=== PATIENT | female | born 1955 | race Caucasian/White ===

== ENCOUNTER 2018-05-07 16:22 | Outpatient (RCR) | payer SELFPAY | END 2018-05-07 19:00 | disposition home or self-care (01) | LOC: PT 16:22 | PROVIDERS: Family Provider Internal Medicine; PCP Internal Medicine; Visit Provider Internal Medicine | DX: G35 Multiple sclerosis (principal); M54.9 Dorsalgia, unspecified ==

== ENCOUNTER 2021-02-21 16:00 | Outpatient (RCR) | payer MEDICARE, OTHER, SELFPAY | END 2021-02-27 23:59 | LOC: DC 16:00 | PROVIDERS: PCP Internal Medicine; Visit Provider Internal Medicine | DX: E11.9 Type 2 diabetes mellitus without complications (principal) | CPT/HCPCS: 97802; G0108 ==

== ENCOUNTER 2021-03-02 18:36 | Emergency (ER) | payer MEDICARE, OTHER, SELFPAY ==
[2021-03-02 18:37] VITALS: BP 204/99; PULSE 80; RESP 16; TEMP 36.6; O2SAT 95; BMI 29.2
--- NOTE | 2021-03-02 18:53 | CT_ITS ---
HISTORY: HTN, headache, vertigo TECHNIQUE: Multiple axial images were obtained of the brain without intravenous contrast. A radiation dose optimization technique was used for this scan. IV Contrast dosage and agent: None. COMPARISON: None FINDINGS: # of images incl. paperwork: 256 PARANASAL SINUSES AND MASTOID AIR CELLS: Clear. INTRACRANIAL HEMORRHAGE: None. BRAIN PARENCHYMA: No CT evidence of stroke. No intracranial masses. There is preservation of the bran/white matter interface. Posterior fossa structures are unremarkable. There is hypoattenuation of the periventricular white matter. Chronic involutional changes are noted. CSF SPACES: Appropriate for age. There is no hydrocephalus. MASS EFFECT: None. CALVARIUM: No acute fracture. CT/Brain/Head without Contrast IMPRESSION: Chronic involutional and white matter changes. No acute intracranial process. Individualized dose optimization techniques were used for this CT. at 2006 Reported and signed by: Jose Luis Harris MD Electronically Signed: Jose Luis Harris MD at 20:05 EDT Tel , Service support ,
--- NOTE | 2021-03-02 18:56 | EX.ED.DYSGE1 ---
HPI History of Present Illness Chief Complaint: Dizziness Informant: patient Onset/Context/Timing Onset: Yesterday Context: Sudden Onset (As she laid down to go to bed) Timing: Intermittent Quality: Sensation of movement Location: Head Current Severity: Mild Maximum Severity: Severe Worsened by: Turning head, lying down Relieved by: Sitting and remaining still Associated Symptoms Associated Symptoms: Nausea, intermittent headache. Narrative Narrative: No vomiting, earache, tinnitus, diplopia/vision disturbance or change, loss of consciousness, otorrhea, recent illness, peripheral neurologic symptom. Patient states she has had vertigo in the past, once it was so severe she had a follow-up with otolaryngology and they did an Shazia maneuver, between that and the meclizine she got better. Ever since, when she lies down she occasionally will have a couple seconds of vertigo but nothing major. This started last night at midnight, but became more persistent throughout the day especially when she moves around. She does not have any medication to try. She checked her blood sugar was in the 200s, she states that is not uncommon for her now that she is actually on medications for diabetes. No history of stroke or TIA, does not take any antiplatelet or anticoagulant medications. [facility] Medical History Asthma Cataracts, bilateral Diabetes High cholesterol High triglycerides Hypertension Vitamin deficiency Home Medications amlodipine 5 mg tablet 5 mg PO DAILY 02/14/21 [History Last Taken Unknown] cholecalciferol (vitamin D3) 125 mcg (5,000 unit) capsule 125 mcg PO DAILY 02/14/21 [History Last Taken Unknown] levothyroxine 50 mcg capsule 50 mcg PO DAILY 02/14/21 [History Last Taken Unknown] metformin 500 mg tablet 1,000 mg PO BID tab 02/14/21 [History Last Taken Unknown] rosuvastatin 10 mg tablet 10 mg PO QHS tab 02/14/21 [History Last Taken Unknown] venlafaxine 75 mg tablet 75 mg PO DAILY 02/14/21 [History Last Taken Unknown] meclizine 25 mg PO 4X/DAY PRN PRN #20 tab 03/02/21 [Rx Last Taken Unknown] Allergy/AdvReac Type Severity Reaction Status Date / Time glimepiride [From Amaryl] Allergy Mild rash Verified 02/14/21 15:00 lisinopril Allergy Mild rash Verified 02/14/21 15:00 losartan Allergy Mild rash Verified 02/14/21 15:00 Family History (Updated 02/14/21 @ 15:04 by JOVI Morfin) Sister Arthritis Colon cancer, Onset Age: 54 Mother Colon cancer, Onset Age: 71 Diabetes Myocardial infarction, Onset Age: 71 Aunt Uterine cancer Surgical History Hx of appendectomy Social History Smoking Status: Never smoker alcohol intake: never substance use type: does not use ROS ROS ED Constitutional Constitutional ED: Denies chills or fever(s) Eyes Eyes: Denies change in vision or diplopia ENT ENT ED: Denies rhinorrhea or sore throat Cardiovascular Cardiovascular: Denies chest pain or palpitations Respiratory/Chest Respiratory/Chest: Denies cough or dyspnea Gastrointestinal Gastrointestinal: Reports nausea; Denies abdominal pain, diarrhea or vomiting Genitourinary Genitourinary ED: Denies dysuria or hematuria Musculoskeletal Musculoskeletal: Denies back pain or neck pain Integumentary Denies abscess or rash Neurologic Neurologic: Reports as per HPI, headache(s) and vertigo; Denies paresthesias, radicular pain, seizure-like activity, syncope or weakness Psychiatric Psychiatric: Denies anxiety or suicidal thoughts EXAM Physical Exam Const Vital Signs: 03/02/21 18:37 03/02/21 19:21 03/02/21 19:31 Temperature 97.8 F Temperature Source Temporal Pulse Rate 80 80 Respiratory Rate 16 16 Respiratory Pattern Normal Blood Pressure 204/99 H 205/93 H Blood Pressure Mean 134 130 Pulse Ox 95 94 Oxygen Delivery Method Room Air Room Air Positive well nourished and well developed General Appearance ED: well developed and NAD HEENT Reports moist mucous membranes normocephalic and atraumatic Eyes PERRL and EOMs intact bilaterally Neck full ROM and supple Resp normal respiratory effort and clear to auscultation bilaterally Cardio regular rate, regular rhythm and no murmurs GI non-tender and non-distended Auscultation: normoactive bowel sounds Palpation: soft Back/Spine no CVA tenderness General Back: other FROM Extremity normal to inspection General Extremety ED: Negative for edema, pulses abnormal or tenderness General Extremity: Negative for edema or pulses abnormal Neuro oriented x3, CN's II-XII intact bilaterally and no sensory deficits noted Neuro Narrative: Normal naefyg-pc-jgtn and vrxa-zv-kfwn bilaterally. NIHSS 0. Sensorium / Orientation: awake and alert Motor Exam: strength 5/5 throughout Skin no rashes or lesions noted and no wounds MDM MDM MDM Narrative Medical decision making narrative: As below work-up is unremarkable. She was given meclizine while we were waiting for the work-up and she feels much better on reevaluation. Her blood pressure was elevated initially. After treatment with labetalol and meclizine and feeling better we rechecked it it is 185/81. Although it is still elevated, I do not think this is a central or stroke in etiology. The symptoms are intermittent, she is triggering and worsening everything significantly with movement and position changes. She does not have any abnormal nystagmus including rotatory or vertical. She has had vertigo in the past. Given this I think she is stable for close outpatient follow-up along with prn meclizine. Advised to follow-up with her PCP as well as ENT if the vertigo is persistent and more severe. She is on amlodipine 5 mg daily, I advised doubling that until she follows up. We discussed reasons to return she is comfortable with this plan. Lab Data Attestation: I reviewed the patient's lab results. Labs: Laboratory Results - last 24 hr 03/02/21 03/02/21 19:15 19:15 WBC 7.2 RBC 4.90 Hgb 14.8 Hct 45.7 MCV 93.3 MCH 30.2 MCHC 32.4 RDW Std Deviation 43.6 RDW Coeff of Sylvester 12.6 Plt Count 211 MPV 10.7 Immature Gran % (Auto) 0.300 Neut % (Auto) 65.3 Lymph % (Auto) 24.3 Gaines % (Auto) 8.1 Eos % (Auto) 1.7 Baso % (Auto) 0.3 Absolute Neuts (auto) 4.7 Absolute Lymphs (auto) 1.74 Nucleated RBC % 0 Sodium 142 Potassium 3.8 Chloride 104 Carbon Dioxide 31.0 Anion Gap 7 BUN 20 H Creatinine 0.75 Estim Creat Clear Calc 67.29 Est GFR (MDRD) Af Amer 100 Est GFR (MDRD) Non-Af 83 BUN/Creatinine Ratio 26.7 H Glucose 186 H Calcium 9.4 Radiography Diagnostic Testing: Radiology Impression Brain CT 03/02/21 18:53 IMPRESSION: Chronic involutional and white matter changes. No acute intracranial process. Individualized dose optimization techniques were used for this CT. at 2006 Reported and signed by: Jose Luis Harris MD Electronically Signed: Jose Luis Harris MD at 20:05 EDT Tel , Service support , Discharge Plan Triage Chief Complaint: Dizziness ED Provider: Live Shannon Dx/Rx/DC Orders Clinical Impression: Peripheral vertigo, Accelerated hypertension Instructions: ED BPV Vertigo, ED High Blood Pressure ..., ED Vertigo, Unspecified Prescriptions: New meclizine [meclizine] 25 MG tablet 25 mg PO 4X/DAY PRN PRN (Reason: Dizziness) Qty: 20 RF: 0 No Action metformin 500 mg tablet 1,000 mg PO BID RF: 0 levothyroxine 50 mcg capsule 50 mcg PO DAILY RF: 0 amlodipine 5 mg tablet 5 mg PO DAILY RF: 0 rosuvastatin 10 mg tablet 10 mg PO QHS RF: 0 venlafaxine 75 mg tablet 75 mg PO DAILY RF: 0 cholecalciferol (vitamin D3) 125 mcg (5,000 unit) capsule 125 mcg PO DAILY RF: 0 Primary Care Provider: Madelin Rivera Referrals: Madelin Rivera DO [Primary Care Provider] - 3-5 Days Carlos Alberto Miner MD [STAFF PHYSICIAN] - 1 Week if not improving (With regards to vertigo) Activity Restrictions/Additional Instructions: Double your amlodipine until you follow-up with your doctor, taking 10 mg once daily (2 tablets at once if you are on 5 mg tablets) Disposition Disposition: Home, self care
[2021-03-02] MEDS: Meclizine HCl 25 MG Tablet PO (19:15)
[2021-03-02 19:28] LABS: Absolute Lymphocyte Count 1.74 X10^3/uL (0.83-4.51); Absolute Neutrophil Count 4.7 X10^3/uL (2.0-7.7); Basophil# 0.02 X10^3/uL; Basophil% 0.3 % (0-1); Eosinophil# 0.12 X10^3/uL; Eosinophils% 1.7 % (0-5); Hematocrit 45.7 % (37-47); Hemoglobin 14.8 g/dL (12.0-15.0); Lymphocyte # 1.74 X10^3/ul (0.83-4.51); Lymphocyte % 24.3 % (19-41); Mean Corp Hgb Conc 32.4 g/dL (32-36); Mean Corpuscular Hgb 30.2 pg (27.0-32.0); Mean Corpuscular Volume 93.3 fL (81-99); Mean Platelet Vol. 10.7 fl (6.2-12.0); Monocyte# 0.58 X10^3/uL; Monocyte% 8.1 % (0-10); NRBC Flagged by Analyzer 0 % (0-5); Neutrophil # 4.69 X10^3/uL (2.7-7.7); Neutrophil % 65.3 % (47-70); Platelet Count 211 K/mm3 (150-450); RBC Distribution Width CV 12.6 % (11.6-14.6); RBC Distribution Width SD 43.6 fl (35.1-43.9); White Blood Count 7.2 K/mm3 (4.4-11.0)
[2021-03-02 19:31] VITALS: BP 205/93; PULSE 80; RESP 16; O2SAT 94
[2021-03-02] MEDS: Labetalol 100 MG/20 ML Vial 20 MG IV (19:31)
[2021-03-02 19:45] LABS: Anion Gap 7 (5-15); BUN 20 mg/dL (7-18); BUN/Creat Ratio 26.7 RATIO (10-20); Calcium,Total 9.4 mg/dL (8.5-10.1); Chloride 104 mmol/L (98-107); Creatinine, Serum 0.75 mg/dL (0.55-1.02); EST Glomerular Filtration Rate 83 mL/min (>60); Est Glom Filt Rate - Afr Amer 100 mL/min (>60); Estimated Creatinine Clearance 67.29 ml/min; Glucose 186 mg/dL (74-106); Potassium 3.8 mmol/L (3.5-5.1); Sodium Level 142 mmol/L (136-145)
[2021-03-02 20:37] VITALS: BP 185/81; PULSE 75; RESP 18; O2SAT 93
== END 2021-03-02 20:53 | disposition home or self-care (01) ==
PROVIDERS: Emergency Provider Emergency Medicine; PCP Internal Medicine
DX: H81.399 Other peripheral vertigo, unspecified ear (principal); I10 Essential (primary) hypertension; E11.36 Type 2 diabetes mellitus with diabetic cataract; E78.00 Pure hypercholesterolemia, unspecified; E78.1 Pure hyperglyceridemia; J45.909 Unspecified asthma, uncomplicated; Z79.84 Long term (current) use of oral hypoglycemic drugs
CPT/HCPCS: 70450; 80048; 85025; 96374; 96376; 99283; A4216

== ENCOUNTER 2021-03-15 15:00 | Outpatient (RCR) | payer MEDICARE, OTHER, SELFPAY | END 2021-03-29 23:59 | LOC: DC 15:00 | PROVIDERS: PCP Internal Medicine; Visit Provider Internal Medicine | DX: E11.9 Type 2 diabetes mellitus without complications (principal) | CPT/HCPCS: 97803; G0108 ==

== ENCOUNTER 2021-05-22 16:33 | Outpatient (RCR) | payer MEDICARE, OTHER, SELFPAY | END 2021-05-30 23:59 | LOC: DC 16:33 | PROVIDERS: PCP Internal Medicine; Visit Provider Internal Medicine | DX: E11.9 Type 2 diabetes mellitus without complications (principal) | CPT/HCPCS: 97803 ==

== ENCOUNTER → 2022-06-01 | Outpatient (CLI) | payer MEDICARE, OTHER, SELFPAY ==
[2022-06-01 15:06] LABS: Hepatitis C Antibody Non-Reactive (Nonreactive)
== END | disposition home or self-care (01) ==
LOC: LAB 13:06
PROVIDERS: PCP Internal Medicine; Referring Provider Physician Assistant Medical; Visit Provider Physician Assistant Medical
DX: L43.8 Other lichen planus (principal)
CPT/HCPCS: 36415; 86803

== ENCOUNTER → 2022-09-28 | Outpatient (CLI) | payer MEDICARE, OTHER, SELFPAY ==
[2022-09-28 10:50] LABS: Mucous, Urine 0 SEEN /hpf (<or=2+); Red Blood Cells-Urine 0 SEEN /hpf (0-5)
[2022-09-28 11:36] LABS: Color, Urine Yellow (Yellow); Glucose, Dipstick Normal (Normal); Ketone-Dipstick 5 mg/dl (Negative); Leukocyte Esterase-Dipstick 500 /ul (Negative); Nitrite-Dipstick Negative (Negative); Occult Blood-Urine Negative /ul (Negative); Protein-Dipstick 100 mg/dl (Negative); Specific Gravity, Urine 1.015 (1.002-1.030); Urine Bilirubin Dipstick Negative (Negative); Urine Clarity Sl. Cloudy (Clear); Urine Urobilinogen 4 mg/dl (Normal); Urine pH 6.5 (5.0 - 8.0)
[2022-09-28 11:38] LABS: Absolute Lymphocyte Count 1.57 X10^3/uL (0.83-4.51); Basophil# 0.03 X10^3/uL; Basophil% 0.5 % (0-1); Eosinophil# 0.16 X10^3/uL; Eosinophils% 2.6 % (0-5); Hematocrit 44.5 % (37-47); Hemoglobin 14.3 g/dL (12.0-15.0); Lymphocyte # 1.57 X10^3/ul (0.83-4.51); Lymphocyte % 25.1 % (19-41); Mean Corp Hgb Conc 32.1 g/dL (32-36); Mean Corpuscular Hgb 29.9 pg (27.0-32.0); Mean Corpuscular Volume 92.9 fL (81-99); Mean Platelet Vol. 10.8 fl (6.2-12.0); Monocyte# 0.45 X10^3/uL; Monocyte% 7.2 % (0-10); NRBC Flagged by Analyzer 0 % (0-5); Neutrophil # 4.02 X10^3/uL (2.7-7.7); Neutrophil % 64.1 % (47-70); Platelet Count 212 K/mm3 (150-450); RBC Distribution Width CV 13.1 % (11.6-14.6); RBC Distribution Width SD 44.7 fl (35.1-43.9); Red Blood Count 4.79 M/mm3 (4.2-5.4); White Blood Count 6.3 K/mm3 (4.4-11.0)
[2022-09-28 11:49] LABS: Squamous Epithelial Cells - UA 0-5 SEEN /hpf (5-10); White Blood Cells 25-50 SEEN /hpf (0-5)
[2022-09-28 11:50] LABS: Bacteria 1+ /hpf (None Seen)
[2022-09-28 12:17] LABS: ALB/GLOB Ratio 0.9 RATIO (0.9-2.4); AST(SGOT) 10 U/L (15-37); Alanine Aminotransfer ALT/SGPT 15 U/L (13-56); Albumin, Serum 3.5 g/dL (3.2-5.0); Alkaline Phosphatase 88 U/L (45-117); Anion Gap 0 (5-15); BUN 21 mg/dL (7-18); BUN/Creat Ratio 35.2 RATIO (10-20); Calcium,Total 8.8 mg/dL (8.5-10.1); Chloride 108 mmol/L (98-107); Cholesterol 147 mg/dL (200); EST Glomerular Filtration Rate 107 mL/min (>60); Est Glom Filt Rate - Afr Amer 129 mL/min (>60); Globulin 3.8 g/dL (2.2-4.2); Glucose 115 mg/dL (74-106); High Density Lipoprotein 43 mg/dL; Potassium 3.8 mmol/L (3.5-5.1); Protein, Total 7.3 g/dL (6.4-8.2); Sodium Level 142 mmol/L (136-145); Thyroid Stim Hormone (TSH) 2.08 uIU/mL (0.358-3.74); Triglycerides 165 mg/dL; Very Low Density Lipoprotein 33 mg/dL (5-40)
[2022-09-28 12:54] LABS: Vitamin D,25 Hydroxy 22.1 ng/mL
[2022-09-28 15:11] LABS: Microalbumin:Creatinine Ratio 219.2 mg/g CRE (<30 mg/g CRE)
== END | disposition home or self-care (01) ==
LOC: PAVLAB 10:47
PROVIDERS: PCP Internal Medicine; Referring Provider Internal Medicine; Visit Provider Internal Medicine
DX: E03.9 Hypothyroidism, unspecified (principal); E78.00 Pure hypercholesterolemia, unspecified; E55.9 Vitamin D deficiency, unspecified; I10 Essential (primary) hypertension
CPT/HCPCS: 36415; 80053; 80061; 81001; 82043; 82306; 82570; 84443; 85025

== ENCOUNTER 2023-02-23 09:31 | Inpatient (IN) | payer MEDICARE, OTHER, SELFPAY ==
[2023-02-23] VITALS (17 sets, daily range): BP systolic 134–157; BP diastolic 69–93; PULSE 78–103; RESP 14–98; TEMP 36.6–37.7; O2SAT 85–98; BMI 31.3; BMI 30.7
--- NOTE | 2023-02-23 09:52 | RAD_ITS ---
HISTORY: Hypoxia, bilateral rales, wheezing egophony RLL. TECHNIQUE: XR Chest 2 Views. COMPARISON: None. FINDINGS: CARDIOMEDIASTINAL BORDERS: Cardiac silhouette within normal limits in size. Calcification of the aortic knob. LUNGS: Moderate opacities in the periphery of the right midlung extending into the right lung base. Mild opacities of the left mid to lower lung. PLEURA: Trace bilateral pleural effusions. OSSEOUS STRUCTURES: Degenerative change. RAD/Chest PA and Lateral IMPRESSION: Very mild pleural effusions with patchy opacities in the mid to lower lungs, concerning for pneumonia. Electronically Signed: Lety Coulter MD at 11:41 EDT ,
--- NOTE | 2023-02-23 09:52 | EKG12_ITS ---
Test Reason : SOB Blood Pressure : / mmHG Vent. Rate : 097 BPM Atrial Rate : 097 BPM P-R Int : 188 ms QRS Dur : 100 ms QT Int : 336 ms P-R-T Axes : 037 011 062 degrees QTc Int : 426 ms Normal sinus rhythm Nonspecific ST and T wave abnormality Abnormal ECG Confirmed by TESS CORDOVA, MIGNON ([id number]), publications editor ROGE RODRIGUEZ ([id number]) on 02/26/2023 10:27:09 AM Referred By: Confirmed By:MIGNON PULIDO MD
[2023-02-23] MEDS: Ipratropium/Albuterol Sulfate 3 ML AMPUL.NEB INHALATION (10:03)
[2023-02-23 10:04] LABS: Absolute Lymphocyte Count 1.07 X10^3/uL (0.83-4.51); Absolute Neutrophil Count 7.6 X10^3/uL (2.0-7.7); Basophil# 0.05 X10^3/uL; Basophil% 0.5 % (0-1); Eosinophil# 0.18 X10^3/uL; Eosinophils% 1.7 % (0-5); Hematocrit 37.7 % (37-47); Hemoglobin 12.3 g/dL (12.0-15.0); Lymphocyte # 1.07 X10^3/ul (0.83-4.51); Lymphocyte % 10.4 % (19-41); Mean Corp Hgb Conc 32.6 g/dL (32-36); Mean Corpuscular Hgb 30.5 pg (27.0-32.0); Mean Corpuscular Volume 93.5 fL (81-99); Mean Platelet Vol. 10.2 fl (6.2-12.0); Monocyte# 1.31 X10^3/uL; Monocyte% 12.7 % (0-10); NRBC Flagged by Analyzer 0 % (0-5); Neutrophil # 7.61 X10^3/uL (2.7-7.7); Neutrophil % 73.7 % (47-70); Platelet Count 235 K/mm3 (150-450); RBC Distribution Width CV 13.4 % (11.6-14.6); RBC Distribution Width SD 45.9 fl (35.1-43.9); Red Blood Count 4.03 M/mm3 (4.2-5.4); White Blood Count 10.3 K/mm3 (4.4-11.0)
[2023-02-23] MEDS: Albuterol 2.5 MG/3 ML VIAL.NEB. INHALATION ×4 (10:05→19:50)
[2023-02-23 10:20] LABS: ALB/GLOB Ratio 0.6 RATIO (0.9-2.4); AST(SGOT) 28 U/L (15-37); Alanine Aminotransfer ALT/SGPT 26 U/L (13-56); Albumin, Serum 2.7 g/dL (3.2-5.0); Alkaline Phosphatase 133 U/L (45-117); Anion Gap 6 (5-15); BUN 16 mg/dL (7-18); BUN/Creat Ratio 23.5 RATIO (10-20); Calcium,Total 9.3 mg/dL (8.5-10.1); Chloride 104 mmol/L (98-107); Creatinine, Serum 0.68 mg/dL (0.55-1.02); EST Glomerular Filtration Rate 92 mL/min (>60); Est Glom Filt Rate - Afr Amer 111 mL/min (>60); Estimated Creatinine Clearance 49.12 ml/min; Globulin 4.6 g/dL (2.2-4.2); Glucose 217 mg/dL (74-106); Potassium 3.5 mmol/L (3.5-5.1); Protein, Total 7.3 g/dL (6.4-8.2); Sodium Level 140 mmol/L (136-145)
[2023-02-23 10:23] LABS: Lactic Acid 1.6 mmol/L (0.4-1.9)
--- NOTE | 2023-02-23 10:23 | EX.ED.DYSGE1 ---
HPI History of Present Illness Chief Complaint: Cough Detail of Chief Complaint: Productive cough, fatigue, dyspnea on exertion Informant: patient Onset/Context/Timing Onset: Days (Onset Saturday, February 20) Context: Sudden Onset Quality: Cough productive of colored sputum Location: Respiratory Current Severity: Mild (At rest on oxygen) Maximum Severity: Severe Worsened by: Dyspnea on exertion Relieved by: Nothing Associated Symptoms Associated Symptoms: Productive cough, subjective fever Narrative Narrative: Patient is a 68-year-old retired woman who has had no ill contacts and presents with fatigue, dyspnea, dyspnea on exertion, productive cough of green sputum. She denies smoking. She denies exposure to any environmental fumes etc. She denies history of PE or DVT. She has no risk factors for PE or DVT. She denies leg pain, swelling discoloration. She does endorse rhinorrhea. She feels this is due to allergies. She denies headache, visual, ocular auditory symptoms. She denies GI symptoms. She denies urologic symptoms. Prior similar symptoms: No Recent Illness/Hospitalization: No PFSH [facility] Medical History Asthma Benign hypertension Cataracts, bilateral Diabetes High cholesterol High triglycerides Mixed hyperlipidemia Overweight (BMI 25.0-29.9) Vitamin deficiency Home Medications cholecalciferol (vitamin D3) 125 mcg (5,000 unit) capsule 125 mcg PO DAILY 02/14/21 [History Last Taken Unknown] levothyroxine 50 mcg capsule 50 mcg PO DAILY 02/14/21 [History Last Taken Unknown] rosuvastatin 10 mg tablet 10 mg PO QHS 02/14/21 [History Last Taken Unknown] venlafaxine 75 mg tablet 75 mg PO DAILY 02/14/21 [History Last Taken Unknown] amlodipine 10 mg tablet 10 mg PO DAILY #90 tabs 02/22/22 [Rx Last Taken Unknown] metformin 500 mg tablet 1,000 mg PO BID #360 tabs 02/22/22 [Rx Last Taken Unknown] hydrochlorothiazide 12.5 mg tablet 12.5 mg PO DAILY #90 tabs 04/26/22 [Rx Last Taken Unknown] insulin syringe-needle U-100 0.3 mL 31 gauge x 5/16 (BD Insulin Syringe Ultra-Fine) #100 ea 05/21/22 [Rx Last Taken Unknown] Allergy/AdvReac Type Severity Reaction Status Date / Time glimepiride [From Amaryl] Allergy Mild rash Verified 09/27/22 14:18 lisinopril Allergy Mild rash Verified 09/27/22 14:18 losartan Allergy Mild rash Verified 09/27/22 14:18 Family History Sister Arthritis Colon cancer, Onset Age: 54 Mother Colon cancer, Onset Age: 71 Diabetes Myocardial infarction, Onset Age: 71 Aunt Uterine cancer Surgical History Hx of appendectomy Social History (Updated 02/23/23 @ 10:[address] Brando Weiss MD) household members: none Smoking Status: Never smoker alcohol intake: never substance use type: does not use ROS ROS ED Constitutional Constitutional ED: Reports fever(s) and subjective; Denies chills, sweats or weight loss Eyes Eyes: Denies blurry vision, change in vision or diplopia ENT ENT ED: Reports rhinorrhea; Denies ear pain or sore throat Cardiovascular Cardiovascular: Denies chest pain, orthopnea, palpitations, paroxysmal nocturnal dyspnea or racing heartbeat Respiratory/Chest Respiratory/Chest: Reports cough, dyspnea, dyspnea on exertion and sputum; Denies orthopnea or paroxysmal nocturnal dyspnea Gastrointestinal Gastrointestinal: Denies abdominal pain, constipation, diarrhea, melena, nausea or vomiting Genitourinary Genitourinary ED: Denies dysuria, hematuria or urinary frequency Musculoskeletal Musculoskeletal: Denies arthralgias or myalgias Integumentary Denies rash Neurologic Neurologic: Reports weakness; Denies headache(s) or paresthesias Psychiatric Psychiatric: Denies anxiety or depression Endocrine Endocrinology: Denies cold intolerance or heat intolerance Hematologic/Lymphatic Hematologic/Lymphatic: Reports systems reviewed and no addt'l complaints, except as documented EXAM Physical Exam Narrative Exam Narrative: Patient is breathing much more rapidly than 20 times a minute. Patient was noted to be hypoxic at triage with a pulse ox of 86% with conversation. Without conversational pulse ox of 88%. Const Vital Signs: 02/23/23 09:32 02/23/23 09:36 02/23/23 09:36 Temperature 99.9 F H 99.8 F H Temperature Source Temporal Temporal Pulse Rate 101 H 98 Respiratory Rate 18 20 H 18 Respiratory Effort Respiratory Depth Respiratory Pattern Blood Pressure 157/73 H 150/74 H Blood Pressure Mean 101 99 Pulse Ox 91 88 91 Oxygen Delivery Method Room Air Room Air Nasal Cannula Oxygen Flow Rate (L/min) 2 02/23/23 09:48 02/23/23 10:08 02/23/23 10:15 Temperature Temperature Source Pulse Rate 100 103 H Respiratory Rate 98 H 20 H Respiratory Effort Normal Respiratory Depth Normal Respiratory Pattern Normal Blood Pressure Blood Pressure Mean Pulse Ox Oxygen Delivery Method Room Air Oxygen Flow Rate (L/min) 02/23/23 10:15 02/23/23 10:36 02/23/23 11:20 Temperature 97.8 F Temperature Source Temporal Pulse Rate 78 Respiratory Rate 16 Respiratory Effort Respiratory Depth Respiratory Pattern Blood Pressure 140/78 H Blood Pressure Mean 98 Pulse Ox 95 93 85 Oxygen Delivery Method Nasal Cannula Nasal Cannula Nasal Cannula Oxygen Flow Rate (L/min) 2 2 2 Positive well nourished and well developed General Appearance ED: well developed; Negative for cyanotic, diaphoretic, NAD or pallor HEENT Reports moist mucous membranes HEENT Narrative: Head is atraumatic normocephalic. Ears normal. Nares patent. Posterior pharynx out erythema or exudate. Uvula midline. Eyes PERRL and EOMs intact bilaterally Eyes Narrative: Trachea is midline. There is no inspiratory extra or. General Eye ED: Negative for pale conjunctiva or scleral icterus Neck no lymphadenopathy, supple and no JVD Chest Wall inspection of chest normal Resp No normal respiratory effort and No clear to auscultation bilaterally Effort and Inspection: other There is minimal use of accessory muscles. ; Negative for retractions or pain with movement Auscultation: rales bilateral (Left greater than right) lower and wheezes expiratory wheezes, scattered wheezes and throughout Cardio regular rate, regular rhythm, S1 normal heart sound, S2 normal heart sound and no murmurs GI normal to inspection, nondistended, normoactive bowel sounds, non-tender, non-distended and no masses; Negative for hepatosplenomegaly Auscultation: normoactive bowel sounds Palpation: soft Back/Spine no CVA tenderness Thoracic Spine / Upper Back: Negative for thoracic spinal tenderness Lumbar Spine / Lower Back: Negative for lumbar spinal tenderness Extremity normal to inspection Extremity Narrative: There is no asymmetry, swelling, discoloration, leg vein distention, palpable cords or tenderness along the distribution of the deep venous system. General Extremety ED: Negative for edema or tenderness General Extremity: Negative for edema Neuro oriented x3, CN's II-XII intact bilaterally and no sensory deficits noted Sensorium / Orientation: alert Skin no rashes or lesions noted, no wounds and skin turgor normal General Skin Exam: Negative for jaundice or pallor MDM MDM MDM Narrative Medical decision making narrative: Clinically patient has right lower lobe pneumonia with egophony. This may represent bilateral lower lobe pneumonia. Since patient hypoxic she was placed on oxygen. Patient was told there is a high likelihood that she will require admission. Work-up included CBC, CMP, lactate and chest x-ray. Patient was treated with DuoNeb followed by 2 albuterol treatments. I was informed by the respiratory therapist at [id number] that patient has more air movement on the left than initially. Lab Data Attestation: I reviewed the patient's lab results. Lab results narrative: Comprehensive metabolic panel reveals slight elevated BUN to creatinine ratio. Glucose is elevated with a normal CO2 and anion gap. Lactate is normal. Albumin is 2.7 with a normal calcium level. Labs: Laboratory Results - last 24 hr 02/23/23 02/23/23 02/23/23 09:45 09:45 09:45 WBC 10.3 RBC 4.03 L Hgb 12.3 Hct 37.7 MCV 93.5 MCH 30.5 MCHC 32.6 RDW Std Deviation 45.9 H RDW Coeff of Sylvester 13.4 Plt Count 235 MPV 10.2 Immature Gran % (Auto) 1.000 H Neut % (Auto) 73.7 H Lymph % (Auto) 10.4 L [place] % (Auto) 12.7 H Eos % (Auto) 1.7 Baso % (Auto) 0.5 Absolute Neuts (auto) 7.6 Absolute Lymphs (auto) 1.07 Nucleated RBC % 0 Sodium 140 Potassium 3.5 Chloride 104 Carbon Dioxide 30.0 Anion Gap 6 BUN 16 Creatinine 0.68 Estim Creat Clear Calc 49.12 Est GFR (MDRD) Af Amer 111 Est GFR (MDRD) Non-Af 92 BUN/Creatinine Ratio 23.5 H Glucose 217 H Lactic Acid 1.6 Calcium 9.3 Total Bilirubin 0.60 AST 28 ALT 26 Alkaline Phosphatase 133 H Total Protein 7.3 Albumin 2.7 L Globulin 4.6 H Albumin/Globulin Ratio 0.6 L Radiography Chest X-Ray - ED: 2 View and Read by ED Physician (Patient has a right lower lobe infiltrate. There is also abnormal interstitial findings left lower lobe, atelectasis. Cardiac size is normal. Perihilar regions unremarkable. Osseous structures unremarkable. This independently reviewed interpreted by me at 1115.) Rhythm Strip Rhythm Strip: Sinus Rhythm Rate: 99 Ectopy: None EKG Initial EKG: Attestation: I personally reviewed and interpreted this EKG as follows: Interpretation: Sinus Rhythm (Rate is 97. PA interval 180 ms. Cures duration 100 ms. QT duration 306 to 6 ms. [place] is normal. 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 She was treated for community-acquired pneumonia with Rocephin and azithromycin. Since she is hypoxic requiring oxygen will contact hospitalist for admission When I went in to inform patient of her laboratory results and chest x-ray findings pulse ox is 85% on 2 L. There is a good waveform. Patient's oxygen was increased to 4 L by nasal cannula. Discharge Plan Dx/Rx/DC Orders Clinical Impression: Right lower lobe pneumonia, Benign hypertension, Obesity (BMI 30.0-34.9), High cholesterol, Acute respiratory failure with hypoxia, Acute bronchospasm Disposition Disposition: Acute Care Hospital [facility]
[2023-02-23] MEDS: Insulin Lispro 100 UNIT/ML INSULN.PEN SC ×2 (16:42→23:12)
[2023-02-23] MEDS: metFORMIN HCl 1,000 MG Tablet 1000 MG PO (16:42)
[2023-02-23 17:05] LABS: Bedside Glucose 208 mg/dL (74-106)
--- NOTE | 2023-02-23 17:35 | HP.PCM.HOS_ITS ---
HPI - General General Date of Admission: 02/23/23 Date of Service: 02/23/23 Chief Complaint: This of breath, productive cough HPI Narrative ERIN LAWRENCE, is a 68 F who presents to the emergency room at [facility] with complaint of cough and shortness of breath x5 days, patient states she felt bad starting this past Saturday, she has been intermittently coughing and bringing up yellow sputum. She denies any chills or fevers at home. Work-up in the emergency room included a chest x-ray which showed a right middle and lower lobe infiltrate, patient's white blood cell count was normal, her temperature was 99.9, chemistry was remarkable for glucose of 217 and an alkaline phosphatase of 133. Patient required 2 L of oxygen via nasal cannula to keep her pulse ox above 90%. Patient will be admitted to [place] [address] for community-acquired pneumonia of the right middle and lower lobe along with hypoxia, she will be treated with IV Zithromax and Rocephin, she will be given aerosol treatments, labs will be monitored. [facility] Medical History Asthma Benign hypertension Cataracts, bilateral Diabetes High cholesterol High triglycerides Mixed hyperlipidemia Overweight (BMI 25.0-29.9) Vitamin deficiency Home Medications cholecalciferol (vitamin D3) 125 mcg (5,000 unit) capsule 125 mcg PO DAILY Check with primary doctor 02/14/21 [History Last Taken Unknown] levothyroxine 50 mcg capsule 50 mcg PO DAILY Check with primary doctor 02/14/21 [History Last Taken Unknown] rosuvastatin 10 mg tablet 10 mg PO QHS Check with primary doctor 02/14/21 [History Last Taken Unknown] venlafaxine 75 mg tablet 75 mg PO DAILY Check with primary doctor 02/14/21 [History Last Taken Unknown] amlodipine 10 mg tablet 10 mg PO DAILY Check with primary doctor 02/23/23 [History Last Taken Unknown] hydrochlorothiazide 12.5 mg tablet 12.5 mg PO DAILY Check with primary doctor 02/23/23 [History Last Taken Unknown] insulin syringe-needle U-100 0.3 mL 31 gauge x 5/16 (BD Insulin Syringe Ultra- Fine) 02/23/23 [History Last Taken Unknown] metformin 500 mg tablet 1,000 mg PO BID Check with primary doctor 02/23/23 [History Last Taken Unknown] Allergy/AdvReac Type Severity Reaction Status Date / Time glimepiride [From Amaryl] Allergy Mild rash Verified 09/27/22 14:18 lisinopril Allergy Mild rash Verified 09/27/22 14:18 losartan Allergy Mild rash Verified 09/27/22 14:18 Family History Sister Arthritis Colon cancer, Onset Age: 54 Mother Colon cancer, Onset Age: 71 Diabetes Myocardial infarction, Onset Age: 71 Aunt Uterine cancer Surgical History Hx of appendectomy Social History (Updated 02/23/23 @ 10:[address] Brando Weiss MD) household members: none Smoking Status: Never smoker alcohol intake: never substance use type: does not use ROS Constitutional Constitutional: Reports fatigue and malaise; Denies anorexia, change in weight, chills, fever(s), night sweats or weakness Eyes Eyes: Denies blurry vision, change in eye color, change in vision, discharge from eye(s) or eye pain Cardiovascular Cardiovascular: Denies chest pain, claudication, edema or palpitations Respiratory/Chest Respiratory/Chest: Reports cough, productive cough, shortness of breath at rest and shortness of breath with exertion; Denies hemoptysis Gastrointestinal Gastrointestinal: Denies abdominal pain, constipation, diarrhea, hematemesis, hematochezia, melena, nausea or vomiting Genitourinary Genitourinary: Denies dysuria, hematuria, nocturia, urinary frequency, urinary hesitancy, urinary incontinence or urinary urgency Musculoskeletal Musculoskeletal: Denies back pain, joint pain, joint stiffness, joint swelling, myalgias or neck pain Neurologic Neurologic: Denies abnormal gait, abnormal speech, confusion, disequilibrium, dizziness, focal weakness, headache(s), loss of vision, numbness, other visual disturbances, paresthesias, syncope or tingling Psychiatric Psychiatric: Denies anxiety, cognitive impairment, depression, irritability, mood swings or suicidal ideation Endocrine Endocrinology: Denies change in body appearance, cold intolerance, excessive sweating, heat intolerance, polydipsia or polyuria Hematologic/Lymphatic Hematologic/Lymphatic: Denies none, anemia, easy bleeding, easy bruising or lymphadenopathy Allergic/Immunologic Allergic/Immunologic: Denies rhinitis, urticaria, eczemia or asthma Vital Signs Vital Signs Vital Signs: 02/23/23 09:32 02/23/23 09:36 02/23/23 09:36 Temperature 99.9 F H 99.8 F H Temperature Source Temporal Temporal Pulse Rate 101 H 98 Respiratory Rate 18 20 H 18 Respiratory Effort Respiratory Depth Respiratory Pattern Blood Pressure 157/73 H 150/74 H Blood Pressure Mean 101 99 Blood Pressure Source Blood Pressure Position Blood Pressure Location Pulse Ox 91 88 91 Oxygen Delivery Method Room Air Room Air Nasal Cannula Oxygen Flow Rate (L/min) 2 02/23/23 09:48 02/23/23 10:08 02/23/23 10:15 Temperature Temperature Source Pulse Rate 100 103 H Respiratory Rate 98 H 20 H Respiratory Effort Normal Respiratory Depth Normal Respiratory Pattern Normal Blood Pressure Blood Pressure Mean Blood Pressure Source Blood Pressure Position Blood Pressure Location Pulse Ox Oxygen Delivery Method Room Air Oxygen Flow Rate (L/min) 02/23/23 10:15 02/23/23 10:36 02/23/23 11:20 Temperature 97.8 F Temperature Source Temporal Pulse Rate 78 Respiratory Rate 16 Respiratory Effort Respiratory Depth Respiratory Pattern Blood Pressure 140/78 H Blood Pressure Mean 98 Blood Pressure Source Blood Pressure Position Blood Pressure Location Pulse Ox 95 93 85 Oxygen Delivery Method Nasal Cannula Nasal Cannula Nasal Cannula Oxygen Flow Rate (L/min) 2 2 2 02/23/23 11:36 02/23/23 13:23 02/23/23 13:00 Temperature 98.2 F 99.4 F H 98.9 F Temperature Source Temporal Oral Oral Pulse Rate 93 92 92 Respiratory Rate 14 20 H 20 H Respiratory Effort Respiratory Depth Respiratory Pattern Blood Pressure 140/69 H 144/80 H 144/80 H Blood Pressure Mean 92 101 101 Blood Pressure Source Monitor Blood Pressure Position Semi-Fowlers Blood Pressure Location Right Arm Pulse Ox 94 98 Oxygen Delivery Method Nasal Cannula Nasal Cannula Oxygen Flow Rate (L/min) 6 6 02/23/23 12:58 02/23/23 13:26 02/23/23 14:33 Temperature 98.0 F Temperature Source Oral Pulse Rate 92 91 Respiratory Rate 20 H 18 Respiratory Effort Short of Breath Labored Respiratory Depth Normal Respiratory Pattern Normal Blood Pressure 134/70 H Blood Pressure Mean 91 Blood Pressure Source Blood Pressure Position Blood Pressure Location Pulse Ox 94 96 Oxygen Delivery Method Nasal Cannula Nasal Cannula Nasal Cannula Oxygen Flow Rate (L/min) 6 6 6 02/23/23 16:39 Temperature 99.5 F H Temperature Source Oral Pulse Rate 90 Respiratory Rate 18 Respiratory Effort Respiratory Depth Respiratory Pattern Blood Pressure 155/77 H Blood Pressure Mean 103 Blood Pressure Source Blood Pressure Position Blood Pressure Location Pulse Ox 95 Oxygen Delivery Method Nasal Cannula Oxygen Flow Rate (L/min) 6 Weight Weight: 83.915 kg Body Mass Index (BMI) 30.7 Physical Exam Const alert, oriented x3, no apparent distress and average body habitus General Appearance: cooperative, well kempt and well developed Orientation / Consciousness: awake, oriented to person, oriented to place and oriented to time HEENT normocephalic, head/scalp atraumatic, hearing grossly normal bilaterally and moist oral mucous membranes Eyes PERRL, EOMs intact bilaterally and conjunctivae normal Neck supple, no JVD, thyroid normal and no carotid bruits General: trachea midline Resp normal respiratory effort, no retractions and no use of accessory muscles Resp Narrative: There is decreased breath sounds over the patient's lower lungs bilaterally Auscultation: Negative for rales, rhonchi or wheezes Cardio regular rate, regular rhythm, S1 normal heart sound, S2 normal heart sound, no murmurs, no rub and no gallops GI normal to inspection, nondistended, normoactive bowel sounds, soft to palpation, non-tender and non-distended Extremity no clubbing, cyanosis or edema Skin no rashes or lesions noted General Skin Exam: no breakdown Neuro oriented x3, CN's II-XII intact bilaterally, moves all extremities, no focal motor deficits and no sensory deficits noted Sensorium / Orientation: awake, alert, oriented to person, oriented to place and oriented to time Speech: speech normal Psych affect normal Results Lab / Micro Data Result Diagrams: 02/23/23 09:45 02/23/23 09:45 Labs: Laboratory Results - last 24 hr 02/23/23 09:45: WBC 10.3, RBC 4.03 L, Hgb 12.3, Hct 37.7, MCV 93.5, MCH 30.5, MCHC 32.6, RDW Std Deviation 45.9 H, RDW Coeff of Sylvester 13.4, Plt Count 235, MPV 10.2, Immature Gran % (Auto) 1.000 H, Neut % (Auto) 73.7 H, Lymph % (Auto) 10.4 L, [place] % (Auto) 12.7 H, Eos % (Auto) 1.7, Baso % (Auto) 0.5, Absolute Neuts (auto) 7.6, Absolute Lymphs (auto) 1.07, Nucleated RBC % 0 02/23/23 09:45: Sodium 140, Potassium 3.5, Chloride 104, Carbon Dioxide 30.0, Anion Gap 6, BUN 16, Creatinine 0.68, Estim Creat Clear Calc 49.12, Est GFR (MDRD) Af Amer 111, Est GFR (MDRD) Non-Af 92, BUN/Creatinine Ratio 23.5 H, Glucose 217 H, Calcium 9.3, Total Bilirubin 0.60, AST 28, ALT 26, Alkaline Phosphatase 133 H, Total Protein 7.3, Albumin 2.7 L, Globulin 4.6 H, Albumin/Globulin Ratio 0.6 L 02/23/23 09:45: Lactic Acid 1.6 02/23/23 16:37: POC Glucose 208 H Micro: Microbiology 02/23/23 16:28 Nasal Secretion SARS-CoV-2 Antigen (Rapid) - Final Rhythm Strip Rhythm Strip: Sinus Rhythm Rate: 99 Ectopy: None Radiology Impression Chest X-Ray 02/23/23 09:52 IMPRESSION: Very mild pleural effusions with patchy opacities in the mid to lower lungs, concerning for pneumonia. Electronically Signed: Lety Coulter MD at 11:41 EDT Reading Location ID and State: [address] [place] [address] Tel , Service support , Assessment & Plan Assessment/Plan (1) Right lower lobe pneumonia: PLAN: Plan 1. Right middle and lower lobe community-acquired pneumonia-patient will be admitted to [facility], she will remain on IV Rocephin and Zithromax, sputum culture will be obtained, respiratory panel and aids test was ordered, strep and Legionella urine antigens were ordered. Aerosol treatments will be given to the patient. #2 hypoxia secondary to #1-patient's pulse ox will be monitored, she will receive aerosol treatments #3 type 2 diabetes-patient's blood sugars will be monitored, sliding scale insulin will be given as necessary, patient will remain on her home medication for diabetes #4 hypothyroidism-patient will remain on Synthroid #5 essential hypertension-patient will remain on amlodipine and hydrochlorothiazide #6 hyperlipidemia-patient is on Crestor #7 chronic depression-patient is on Effexor Total clinical time spent by myself addressing the patient's medical issues reviewing all her data, and collaborating with patient's care team 55 minutes Charges/Coding Visit Charges Inpatient E&M: 90292 Init Hosp L2
[2023-02-23] MEDS: 0.9% Saline Lock 10 ML Syringe IV (23:11)
[2023-02-23] MEDS: Heparin Injection (Vial) 5,000 UNIT/ML VIAL 5000 UNIT SC (23:12)
[2023-02-23] MEDS: Atorvastatin Calcium 20 MG Tablet PO (23:12)
[2023-02-23] MEDS: Acetaminophen 325 MG Tablet 650 MG PO (23:17)
[2023-02-24] VITALS (10 sets, daily range): BP systolic 143–155; BP diastolic 74–82; PULSE 75–93; RESP 14–20; TEMP 36.7–37.1; O2SAT 85–95
[2023-02-24 00:16] LABS: Bedside Glucose 161 mg/dL (74-106)
[2023-02-24] MEDS: Albuterol 2.5 MG/3 ML VIAL.NEB. INHALATION ×3 (00:30→18:59)
--- NOTE | 2023-02-24 06:00 | RAD_ITS ---
INDICATION: Pneumonia-486 EXAMINATION/TECHNIQUE: X-RAY - XR Chest 2 Views COMPARISON: February 23, 2023. FINDINGS: LINES/DEVICES: None. LUNGS: Slightly increased bilateral peripheral patchy airspace consolidations. Small left effusion. Unchanged mild diffuse interstitial thickening. No pneumothorax. . MEDIASTINUM AND CARDIOVASCULAR STRUCTURES: Cardiac silhouette not enlarged. Mild aortic atherosclerosis BONES AND SOFT TISSUES: Unremarkable. RAD/Chest PA and Lateral IMPRESSION: Mild interval increase in bilateral peripheral airspace opacities and trace left effusion concerning for pneumonia. Electronically Signed: Molina Gabriel MD at 8:30 EDT ,
[2023-02-24 06:30] LABS: Absolute Lymphocyte Count 1.49 X10^3/uL (0.83-4.51); Absolute Neutrophil Count 7.8 X10^3/uL (2.0-7.7); Basophil# 0.06 X10^3/uL; Basophil% 0.5 % (0-1); Eosinophil# 0.29 X10^3/uL; Eosinophils% 2.6 % (0-5); Hematocrit 35.5 % (37-47); Hemoglobin 11.3 g/dL (12.0-15.0); Lymphocyte # 1.49 X10^3/ul (0.83-4.51); Lymphocyte % 13.6 % (19-41); Mean Corp Hgb Conc 31.8 g/dL (32-36); Mean Corpuscular Hgb 29.7 pg (27.0-32.0); Mean Corpuscular Volume 93.4 fL (81-99); Mean Platelet Vol. 10.3 fl (6.2-12.0); Monocyte% 10.9 % (0-10); NRBC Flagged by Analyzer 0 % (0-5); Platelet Count 234 K/mm3 (150-450); RBC Distribution Width CV 13.4 % (11.6-14.6); RBC Distribution Width SD 46.3 fl (35.1-43.9)
[2023-02-24] MEDS: Levothyroxine 50 MCG Tablet PO (06:44)
[2023-02-24] MEDS: Insulin Lispro 100 UNIT/ML INSULN.PEN SC ×2 (06:48→21:38)
[2023-02-24 07:23] LABS: Bedside Glucose 158 mg/dL (74-106)
[2023-02-24] MEDS: metFORMIN HCl 1,000 MG Tablet 1000 MG PO ×2 (09:35→17:03)
[2023-02-24] MEDS: Heparin Injection (Vial) 5,000 UNIT/ML VIAL 5000 UNIT SC ×2 (09:35→21:31)
[2023-02-24] MEDS: Venlafaxine HCl 75 MG Tablet PO (09:35)
[2023-02-24] MEDS: amLODIPine 10 MG Tablet PO (09:36)
[2023-02-24] MEDS: hydroCHLOROthiazide 12.5mg 12.5 MG PO (09:36)
[2023-02-24] MEDS: Ceftriaxone 1 GM/50 ML BAG IV (09:47)
[2023-02-24] MEDS: 0.9% Saline Lock 10 ML Syringe IV ×2 (09:47→21:31)
--- NOTE | 2023-02-24 09:55 | PN.HOSP_ITS ---
Reason for Visit Reason for Visit: Diagnoses Pneumonia, unspecified organism (02/23/23) Subjective Subjective Patient was seen and examined today she states she is feeling somewhat better today, patient's white count has remained normal, patient's Legionella antigen and strep antigen was negative, her COVID test was negative, her respiratory nash el was also negative. Patient still remains on 4 L of oxygen via nasal cannula. Objective Data Objective Data Vital Signs: Vital Signs Temp Pulse Resp BP Pulse Ox O2 Del Method O2 Flow Rate 98.2 F 90 18 145/74 H 93 Nasal Cannula 4 02/24/23 04:07 02/24/23 07:32 02/24/23 07:32 02/24/23 04:07 02/24/23 07:32 02/24/23 07:32 02/24/23 07:32 Oxygen Flow Rate (L/min) 4 Oxygen Delivery Method Nasal Cannula Weight: 83.915 kg Body Mass Index (BMI) 30.7 Intake & Output: Intake and Output for Last 24 Hours 02/22/23 02/23/23 02/24/23 23:59 23:59 23:59 Intake Total 955 / 1255 300 / 300 Output Total 250 / 250 Balance 705 / 1005 300 / 300 Lab / Micro Data Result Diagrams: 02/24/23 05:40 02/23/23 09:45 Labs: Laboratory Results - last 24 hr 02/23/23 09:45: WBC 10.3, RBC 4.03 L, Hgb 12.3, Hct 37.7, MCV 93.5, MCH 30.5, MCHC 32.6, RDW Std Deviation 45.9 H, RDW Coeff of Sylvester 13.4, Plt Count 235, MPV 10.2, Immature Gran % (Auto) 1.000 H, Neut % (Auto) 73.7 H, Lymph % (Auto) 10.4 L, [place] % (Auto) 12.7 H, Eos % (Auto) 1.7, Baso % (Auto) 0.5, Absolute Neuts (auto) 7.6, Absolute Lymphs (auto) 1.07, Nucleated RBC % 0 02/23/23 09:45: Sodium 140, Potassium 3.5, Chloride 104, Carbon Dioxide 30.0, Anion Gap 6, BUN 16, Creatinine 0.68, Estim Creat Clear Calc 49.12, Est GFR (MDRD) Af Amer 111, Est GFR (MDRD) Non-Af 92, BUN/Creatinine Ratio 23.5 H, Glucose 217 H, Calcium 9.3, Total Bilirubin 0.60, AST 28, ALT 26, Alkaline Phosphatase 133 H, Total Protein 7.3, Albumin 2.7 L, Globulin 4.6 H, Albumin/Globulin Ratio 0.6 L 02/23/23 09:45: Lactic Acid 1.6 02/23/23 16:37: POC Glucose 208 H 02/23/23 23:00: POC Glucose 161 H 02/24/23 05:40: WBC 11.0, RBC 3.80 L, Hgb 11.3 L, Hct 35.5 L, MCV 93.4, MCH 29.7, MCHC 31.8 L, RDW Std Deviation 46.3 H, RDW Coeff of Sylvester 13.4, Plt Count 234, MPV 10.3, Immature Gran % (Auto) 1.400 H, Neut % (Auto) 71.0 H, Lymph % (Auto) 13.6 L, [place] % (Auto) 10.9 H, Eos % (Auto) 2.6, Baso % (Auto) 0.5, Absolute Neuts (auto) 7.8 H, Absolute Lymphs (auto) 1.49, Nucleated RBC % 0 02/24/23 06:47: POC Glucose 158 H Micro: Microbiology 02/23/23 13:17 Mucosa - Nasopharyngeal Respiratory Panel (PCR) - Final 02/23/23 17:05 Urine, Clean Catch Streptococcus pneumoniae Antigen (M - Final 02/23/23 17:05 Urine, Clean Catch Legionella Antigen - Final 02/23/23 16:28 Nasal Secretion SARS-CoV-2 Antigen (Rapid) - Final Radiography Diagnostic Testing: Radiology Impression Chest X-Ray 02/23/23 09:52 IMPRESSION: Very mild pleural effusions with patchy opacities in the mid to lower lungs, concerning for pneumonia. Electronically Signed: Lety Coulter MD at 11:41 EDT , Chest X-Ray 02/24/23 06:00 IMPRESSION: Mild interval increase in bilateral peripheral airspace opacities and trace left effusion concerning for pneumonia. Electronically Signed: Molina Gabriel MD at 8:30 EDT , Rhythm Strip Rhythm Strip: Sinus Rhythm Rate: 99 Ectopy: None Physical Exam Const alert, oriented x3 and no apparent distress General Appearance: cooperative, well kempt and well developed Orientation / Consciousness: awake, oriented to person, oriented to place and oriented to time HEENT normocephalic, head/scalp atraumatic and moist oral mucous membranes Eyes PERRL, EOMs intact bilaterally and conjunctivae normal Neck supple, no JVD, thyroid normal and no carotid bruits General: trachea midline Resp normal respiratory effort, no retractions and no use of accessory muscles Resp Narrative: There are fine rales on inspiration at the lung bases bilaterally Auscultation: rales bilateral base; Negative for rhonchi or wheezes Cardio regular rate, regular rhythm, S1 normal heart sound, S2 normal heart sound, no murmurs, no rub and no gallops GI normal to inspection, nondistended, normoactive bowel sounds, soft to palpation, non-tender and non-distended Extremity no clubbing, cyanosis or edema Skin no rashes or lesions noted General Skin Exam: no breakdown Neuro oriented x3, CN's II-XII intact bilaterally, moves all extremities, no focal motor deficits and no sensory deficits noted Sensorium / Orientation: awake, alert, oriented to person, oriented to place and oriented to time Speech: speech normal Psych affect normal Assessment & Plan Assessment/Plan (1) Right lower lobe pneumonia: PLAN: Plan 1. Right middle and lower lobe community-acquired pneumonia-patient remains on Rocephin and Zithromax-day #2, I will repeat her chest x-ray tomorrow \ #2 hypoxia secondary to #1-patient's pulse ox will be monitored, she will receive aerosol treatments, oxygen will be weaned if possible #3 type 2 diabetes-patient's blood sugars will be monitored, sliding scale insulin will be given as necessary, patient will remain on her home medication for diabetes #4 hypothyroidism-patient will remain on Synthroid #5 essential hypertension-patient will remain on amlodipine and hydrochlorothiazide #6 hyperlipidemia-patient is on Crestor #7 chronic depression-patient is on Effexor Total clinical time spent by myself addressing the patient's medical issues reviewing all her data, and collaborating with patient's care team 35 minutes Charges/Coding Visit Charges Inpatient E&M: 52883 Subs Hosp L2
[2023-02-24 12:16] LABS: Bedside Glucose 294 mg/dL (74-106)
[2023-02-24 19:46] LABS: Hemoglobin A1c 7.4 % (3.8-5.6)
[2023-02-24] MEDS: Atorvastatin Calcium 20 MG Tablet PO (21:40)
[2023-02-24 23:22] LABS: Bedside Glucose 249 mg/dL (74-106)
[2023-02-25] VITALS (10 sets, daily range): BP systolic 143–151; BP diastolic 66–76; PULSE 82–97; RESP 20–24; TEMP 36.7–37; O2SAT 84–95
[2023-02-25] MEDS: Albuterol 2.5 MG/3 ML VIAL.NEB. INHALATION ×2 (01:44→13:16)
--- NOTE | 2023-02-25 06:00 | RAD_ITS ---
EXAM: XR CHEST, 2 VIEWS CLINICAL INDICATION: pneumonia TECHNIQUE: Frontal and lateral views of the chest. COMPARISON: 02/24/2023 FINDINGS: LUNGS AND PLEURAL SPACES: Continued bilateral lower lobe predominant airspace disease and small left pleural effusion. No pneumothorax. HEART: Unremarkable. Cardiac silhouette not enlarged. MEDIASTINUM: Central airways and mediastinal contour are unremarkable. BONES/JOINTS: Unremarkable. SOFT TISSUES: Unremarkable. RAD/Chest PA and Lateral IMPRESSION: Continued bilateral lower lobe predominant airspace disease and small left pleural effusion. Findings may indicate pneumonia. Electronically Signed: Juaquin Aggarwal MD at 6:34 EDT ,
[2023-02-25] MEDS: Levothyroxine 50 MCG Tablet PO (06:30)
[2023-02-25] MEDS: Insulin Lispro 100 UNIT/ML INSULN.PEN SC ×4 (06:30→21:10)
[2023-02-25 06:57] LABS: Bedside Glucose 159 mg/dL (74-106)
[2023-02-25] MEDS: metFORMIN HCl 1,000 MG Tablet 1000 MG PO ×2 (07:50→17:08)
--- NOTE | 2023-02-25 09:57 | PCM.PN.HOSP ---
Reason for Visit Reason for Visit: Diagnoses Pneumonia, unspecified organism (02/23/23) Subjective Subjective Patient seen and examined today, she does not complain of shortness of breath at rest, chest x-ray today shows bilateral infiltrates. Objective Data Objective Data Vital Signs: Vital Signs Temp Pulse Resp BP Pulse Ox O2 Del Method O2 Flow Rate 98.0 F 83 20 H 149/66 H 92 Nasal Cannula 4 02/25/23 07:52 02/25/23 07:52 02/25/23 07:52 02/25/23 07:52 02/25/23 09:16 02/25/23 09:16 02/25/23 09:16 Oxygen Flow Rate (L/min) 4 Oxygen Delivery Method Nasal Cannula Weight: 83.915 kg Body Mass Index (BMI) 30.7 Intake & Output: Intake and Output for Last 24 Hours 02/23/23 02/24/23 02/25/23 23:59 23:59 23:59 Intake Total 955 / 1255 1505 / 1505 Output Total 250 / 250 Balance 705 / 1005 1505 / 1505 Lab / Micro Data Result Diagrams: 02/24/23 05:40 02/23/23 09:45 Labs: Laboratory Results - last 24 hr 02/24/23 05:40: Hemoglobin A1c 7.4 H 02/24/23 11:36: POC Glucose 294 H 02/24/23 21:30: POC Glucose 249 H 02/25/23 06:29: POC Glucose 159 H Micro: Microbiology 02/23/23 13:17 Mucosa - Nasopharyngeal Respiratory Panel (PCR) - Final 02/23/23 17:05 Urine, Clean Catch Streptococcus pneumoniae Antigen (M - Final 02/23/23 17:05 Urine, Clean Catch Legionella Antigen - Final 02/23/23 16:28 Nasal Secretion SARS-CoV-2 Antigen (Rapid) - Final Radiography Diagnostic Testing: Radiology Impression Chest X-Ray 02/25/23 06:00 IMPRESSION: Continued bilateral lower lobe predominant airspace disease and small left pleural effusion. Findings may indicate pneumonia. Electronically Signed: Juaquin Aggarwal MD at 6:34 EDT , Rhythm Strip Rhythm Strip: Sinus Rhythm Rate: 99 Ectopy: None Physical Exam Narrative alert, oriented x3 and no apparent distress General Appearance: cooperative, well kempt and well developed Orientation / Consciousness: awake, oriented to person, oriented to place and oriented to time HEENT normocephalic, head/scalp atraumatic and moist oral mucous membranes Eyes PERRL, EOMs intact bilaterally and conjunctivae normal Neck supple, no JVD, thyroid normal and no carotid bruits General: trachea midline Resp normal respiratory effort, no retractions and no use of accessory muscles Resp Narrative: Decreased breath sounds are noted bilaterally, no rales, rhonchi or wheezes are noted Cardio regular rate, regular rhythm, S1 normal heart sound, S2 normal heart sound, no murmurs, no rub and no gallops GI normal to inspection, nondistended, normoactive bowel sounds, soft to palpation, non-tender and non-distended Extremity no clubbing, cyanosis or edema Skin no rashes or lesions noted General Skin Exam: no breakdown Neuro oriented x3, CN's II-XII intact bilaterally, moves all extremities, no focal motor deficits and no sensory deficits noted Sensorium / Orientation: awake, alert, oriented to person, oriented to place and oriented to time Speech: speech normal Psych affect normal Assessment & Plan Assessment/Plan (1) Right lower lobe pneumonia: PLAN: Plan 1. Right middle and lower lobe and left lower lobe community-acquired pneumonia-patient remains on Rocephin and Zithromax-day #3. \ #2 hypoxia secondary to #1-patient's pulse ox will be monitored, she will receive aerosol treatments, oxygen will be weaned if possible, patient may have to go home on supplemental oxygen short-term, I discussed this with her briefly. #3 type 2 diabetes-patient's blood sugars will be monitored, sliding scale insulin will be given as necessary, patient will remain on her home medication for diabetes #4 hypothyroidism-patient will remain on Synthroid #5 essential hypertension-patient will remain on amlodipine and hydrochlorothiazide #6 hyperlipidemia-patient is on Crestor #7 chronic depression-patient is on Effexor Total clinical time spent by myself addressing the patient's medical issues reviewing all her data, and collaborating with patient's care team 36 minutes Charges/Coding Visit Charges Inpatient E&M: 66153 Subs Hosp L2
[2023-02-25] MEDS: Ceftriaxone 1 GM/50 ML BAG IV (10:24)
[2023-02-25] MEDS: hydroCHLOROthiazide 12.5mg 12.5 MG PO (10:29)
[2023-02-25] MEDS: Venlafaxine HCl 75 MG Tablet PO (10:29)
[2023-02-25] MEDS: amLODIPine 10 MG Tablet PO (10:29)
[2023-02-25] MEDS: Heparin Injection (Vial) 5,000 UNIT/ML VIAL 5000 UNIT SC ×2 (10:29→21:09)
[2023-02-25 15:51] LABS: Bedside Glucose 198 mg/dL (74-106)
[2023-02-25 17:31] LABS: Bedside Glucose 202 mg/dL (74-106)
[2023-02-25] MEDS: Atorvastatin Calcium 20 MG Tablet PO (21:09)
[2023-02-25 21:37] LABS: Bedside Glucose 218 mg/dL (74-106)
[2023-02-26] VITALS (7 sets, daily range): BP systolic 148–150; BP diastolic 71–75; PULSE 78–87; RESP 18; TEMP 36.7–37; O2SAT 88–94
[2023-02-26] MEDS: Insulin Lispro 100 UNIT/ML INSULN.PEN SC ×2 (06:02→11:48)
[2023-02-26] MEDS: Levothyroxine 50 MCG Tablet PO (06:03)
[2023-02-26 06:33] LABS: Bedside Glucose 183 mg/dL (74-106)
--- NOTE | 2023-02-26 07:18 | PCM.PN.HOSP ---
Reason for Visit Reason for Visit: Diagnoses Pneumonia, unspecified organism (02/23/23) Subjective Subjective Patient is a 68-year-old female admitted with fatigue cough. Imaging studies did show Right middle and lower lobe and left lower lobe. Admitted to regular nursing floor for further management Objective Data Objective Data Vital Signs: Vital Signs Temp Pulse Resp BP Pulse Ox O2 Del Method O2 Flow Rate 98.6 F 78 18 148/71 H 94 Nasal Cannula 4 02/26/23 03:05 02/26/23 03:05 02/26/23 03:05 02/26/23 03:05 02/26/23 03:05 02/26/23 03:09 02/26/23 03:09 Oxygen Flow Rate (L/min) 4 Oxygen Delivery Method Nasal Cannula Weight: 83.915 kg Body Mass Index (BMI) 30.7 Intake & Output: Intake and Output for Last 24 Hours 02/24/23 02/25/23 02/26/23 23:59 23:59 23:59 Intake Total 1505 / 1505 905 / 1025 240 / 240 Output Total 0 / 0 Balance 1505 / 1505 905 / 1025 240 / 240 Lab / Micro Data Result Diagrams: 02/24/23 05:40 02/23/23 09:45 Labs: Laboratory Results - last 24 hr 02/25/23 10:37: POC Glucose 198 H 02/25/23 17:07: POC Glucose 202 H 02/25/23 21:07: POC Glucose 218 H 02/26/23 06:01: POC Glucose 183 H Micro: Microbiology 02/23/23 13:17 Mucosa - Nasopharyngeal Respiratory Panel (PCR) - Final 02/23/23 17:05 Urine, Clean Catch Streptococcus pneumoniae Antigen (M - Final 02/23/23 17:05 Urine, Clean Catch Legionella Antigen - Final 02/23/23 16:28 Nasal Secretion SARS-CoV-2 Antigen (Rapid) - Final Rhythm Strip Rhythm Strip: Sinus Rhythm Rate: 99 Ectopy: None Physical Exam Narrative GENERAL: cooperative HEENT: Atraumatic; normocephalic EYES; Anicteric, Normal Conjunctiva NECK; supple, normal thyroid, RESPIRATORY: Diminished to auscultation CARDIOVASCULAR: Regular S1 S2, GI: soft, normoactive bowel sounds, : No Renal angle tenderness; EXTREMITIES: No edema, no clubbing, MUSCULOSKELETAL: no muscle wasting NEURO: Awake; no lateralizing signs. SKIN: No Rash PSYCH; Flat affect Assessment & Plan Assessment/Plan (1) Right lower lobe pneumonia: PLAN: Plan Patient is a 68-year-old female admitted with fatigue cough. Imaging studies did show Right middle and lower lobe and left lower lobe. Admitted to regular nursing floor for further management 1. Acute hypoxia ? Secondary to multifocal pneumonia imaging studies did show Right middle and lower lobe and left lower lobe. Admitted to regular nursing floor managed with supplemental oxygen as well as Rocephin and azithromycin ? Patient to be assessed for home oxygen with a 6-minute walk 2. Hypothyroidism - Patient is on levothyroxine home dose continued 3. Diabetes mellitus type II -Patient is on metformin held placed on, Accu-Cheks a.c. and at bedtime and covered with sliding scale insulin 4. Hypertension - Blood pressure controlled, home medications continued with dose adjustment as needed 5. Dyslipidemia -Patient is on statin therapy, continued at home dose 6. Depression ? Patient is on Effexor Time spent in the patient's overall evaluation,decision-making process, review of diagnostic data, adjustment of management, discussion with other providers, nursing nursing and ancillary staff involved in patient's care documentation, 35 Minutes Charges/Coding Visit Charges Inpatient E&M: 68985 Subs Hosp L2
[2023-02-26] MEDS: Heparin Injection (Vial) 5,000 UNIT/ML VIAL 5000 UNIT SC (08:38)
[2023-02-26] MEDS: hydroCHLOROthiazide 12.5mg 12.5 MG PO (08:38)
[2023-02-26] MEDS: amLODIPine 10 MG Tablet PO (08:38)
[2023-02-26] MEDS: metFORMIN HCl 1,000 MG Tablet 1000 MG PO (08:38)
[2023-02-26] MEDS: Venlafaxine HCl 75 MG Tablet PO (10:17)
[2023-02-26] MEDS: Ceftriaxone 1 GM/50 ML BAG IV (10:38)
--- NOTE | 2023-02-26 11:10 | CASEMGMT ---
RN?CM?INTERACTIVE PROJECT MANAGER?CM?to room to meet with patient for initial transition planning/care coordination?assessment.?RN?CM?introduced self and role at [facility].? Pt voices understanding and consents to?assessment?at this time.? Pt resting in bed in no distress at this time.? Pt is A/O at this time and answers all questions appropriately.?? Care providers, pharmacy, and demographics verified/updated at this time. PCP: Dr Rivera Specialists: Dr Perla and Bernarda Akbar/BAKERY DEMONSTRATOR-endocrinology Preferred Pharmacy: [facility] Retail Insurance: MCR, [employer] Prescription Benefit:?Yes Living Will/HPOA:?Pt thinks she has done both and thinks her is HCPOA and oldest dtr is 1st alternative. Pt made aware if she is unable to find these documents or if she wishes to do new ones, to contact for completion. LNOK: , Srikanth. 3 children Living Arrangements: Lives w/her and son in 2-story home w/basement and 2 steps to enter. [employer]. Railing on stairs to basement. Indep w/ADL's and IADL's and manages her own medications and appts. Pt and share home mgnt tasks. Son often makes supper. Transportation:?Pt states drives self and states no transportation concerns at this time.? also drives. DME: ?States has the following DME:?functioning glucometer w/supplies. No home O2. Reviewed list of local DME co's and made aware [employer] is affiliated w/[facility]. She states okay w/[employer]. Discussed home O2 set-up process. She does not have a pulse ox and states it is affordable to purchase one. Pt states no need for further DME at this time.? HHC/SNF: No hx of either. No needs identified. Pt wishes to return home and states has no concerns with going home at time of discharge.? ?CM?to follow for home oxygen needs and any further discharge planning/needs.? Pt voices no further concerns/needs at this time.? Advised pt to ask for?CM?if any further questions/concerns/needs arise.? Voices understanding. PLAN:??Home Follow for possible home O2 @ d/c. Killian FLORESN?RN?CM
[2023-02-26 12:15] LABS: Bedside Glucose 189 mg/dL (74-106)
--- NOTE | 2023-02-26 13:17 | CASEMGMT ---
Referral sent to [facility] at this time for oxygen.
--- NOTE | 2023-02-26 13:33 | DS.PCM_ITS ---
Providers Date of Admission: 02/23/23 Date of Discharge: 02/26/23 Primary Care Physician: Dr. Madelin Rivera, DO Reason For Visit: RIGHT SIDED PNEUMONIA, HYPOXIA Diagnosis Discharge Diagnosis (1) Right lower lobe pneumonia: Status: Acute Code(s): J18.9 - Pneumonia, unspecified organism Plan Patient is a 68-year-old female admitted with fatigue cough. Imaging studies did show Right middle and lower lobe and left lower lobe. Admitted to regular nursing floor for further management 1. Acute hypoxia ? Secondary to multifocal pneumonia imaging studies did show Right middle and lower lobe and left lower lobe. Admitted to regular nursing floor managed with supplemental oxygen as well as Rocephin and azithromycin ? Patient to be assessed for home oxygen with a 6-minute walk time ?patient did qualify for home oxygen was discharged home with 2 L at rest patient will need portability since he is active both at home as well as in the community 2. Hypothyroidism - Patient is on levothyroxine home dose continued 3. Diabetes mellitus type II -Patient is on metformin held placed on, Accu-Cheks a.c. and at bedtime and covered with sliding scale insulin 4. Hypertension - Blood pressure controlled, home medications continued with dose adjustment as needed 5. Dyslipidemia -Patient is on statin therapy, continued at home dose 6. Depression ? Patient is on Effexor Time spent in the patient's overall evaluation,decision-making process, review of diagnostic data, adjustment of management, discussion with other providers, nursing nursing and ancillary staff involved in patient's care documentation, 35 Minutes Medications at Discharge Home Medications cholecalciferol (vitamin D3) 125 mcg (5,000 unit) capsule 125 mcg PO DAILY Check with primary doctor 02/14/21 levothyroxine 50 mcg capsule 50 mcg PO DAILY Check with primary doctor 02/14/21 rosuvastatin 10 mg tablet 10 mg PO QHS Check with primary doctor 02/14/21 venlafaxine 75 mg tablet 75 mg PO DAILY Check with primary doctor 02/14/21 amlodipine 10 mg tablet 10 mg PO DAILY Check with primary doctor 02/23/23 hydrochlorothiazide 12.5 mg tablet 12.5 mg PO DAILY Check with primary doctor 02/23/23 insulin syringe-needle U-100 0.3 mL 31 gauge x 5/16 (BD Insulin Syringe Ultra- Fine) 02/23/23 metformin 500 mg tablet 1,000 mg PO BID Check with primary doctor 02/23/23 azithromycin 500 mg tablet 500 mg PO DAILY 3 days #3 tabs 02/26/23 cefdinir 300 mg capsule 300 mg PO BID #10 caps 02/26/23 Hospital Course Summary of Care Provided Minutes Spent on Discharge: 35 Physical Exam Narrative GENERAL: cooperative HEENT: Atraumatic; normocephalic EYES; Anicteric, Normal Conjunctiva NECK; supple, normal thyroid, RESPIRATORY: Diminished to auscultation CARDIOVASCULAR: Regular S1 S2, GI: soft, normoactive bowel sounds, : No Renal angle tenderness; EXTREMITIES: No edema, no clubbing, MUSCULOSKELETAL: no muscle wasting NEURO: Awake; no lateralizing signs. SKIN: No Rash PSYCH; Flat affect Weight / BMI Weight Weight: 83.915 kg Body Mass Index (BMI) 30.7 ABG / Lab / Microbiology Data Result Diagrams: 02/24/23 05:40 02/23/23 09:45 Laboratory: Laboratory Results - last 24 hr 02/25/23 10:37: POC Glucose 198 H 02/25/23 17:07: POC Glucose 202 H 02/25/23 21:07: POC Glucose 218 H 02/26/23 06:01: POC Glucose 183 H 02/26/23 11:47: POC Glucose 189 H Microbiology: Microbiology 02/23/23 13:17 Mucosa - Nasopharyngeal Respiratory Panel (PCR) - Final 02/23/23 17:05 Urine, Clean Catch Streptococcus pneumoniae Antigen (M - Final 02/23/23 17:05 Urine, Clean Catch Legionella Antigen - Final 02/23/23 16:28 Nasal Secretion SARS-CoV-2 Antigen (Rapid) - Final D/C Instructions Discharge Diet: 1800 Calorie Control Diet Meaningful Use Info Meaningful Use Diagnoses (Choose all that apply): None applicable Discharge Plan Admission Admit Date/Time: 02/23/23 11:36 Attending Provider: Simone Benitez Primary Care Provider: Madelin Rivera Consulting Providers: Misha Rosario Discharge Orders/Prescriptions Prescriptions: New azithromycin 500 mg tablet 500 mg PO DAILY 3 Days Qty: 3 0RF cefdinir 300 mg capsule 300 mg PO BID Qty: 10 0RF Continued levothyroxine 50 mcg capsule 50 mcg PO DAILY rosuvastatin 10 mg tablet 10 mg PO QHS venlafaxine 75 mg tablet 75 mg PO DAILY cholecalciferol (vitamin D3) 125 mcg (5,000 unit) capsule 125 mcg PO DAILY metformin 500 mg tablet 1,000 mg PO BID amlodipine 10 mg tablet 10 mg PO DAILY (DME) insulin syringe-needle U-100 [BD Insulin Syringe Ultra-Fine] 0.3 mL 31 gauge x 5/16 syringe See Rx Instructions .ROUTE Rx Instructions: BID hydrochlorothiazide 12.5 mg tablet 12.5 mg PO DAILY Referrals / Follow Up: Madelin Rivera DO [Primary Care Provider] - Disposition Disposition (needs filled in before D/C Order can be placed): Home, Self Care Charges/Coding Visit Charges Inpatient E&M: 00869 Disch Hosp >30min
--- NOTE | 2023-02-26 14:13 | PHA.DC.MC ---
Pharmacy Service has performed discharge medication reconciliation and counseling for this patient. 1. AZITHROMYCIN 500MG PO DAILY X 3 DAYS 2. CEFDINIR 300MG PO BID X 5 DAYS The patient's discharge medication list was reviewed for discrepancies and discrepancies were resolved. Home Medications cholecalciferol (vitamin D3) 125 mcg (5,000 unit) capsule 125 mcg PO DAILY Check with primary doctor 02/14/21 levothyroxine 50 mcg capsule 50 mcg PO DAILY Check with primary doctor 02/14/21 rosuvastatin 10 mg tablet 10 mg PO QHS Check with primary doctor 02/14/21 venlafaxine 75 mg tablet 75 mg PO DAILY Check with primary doctor 02/14/21 amlodipine 10 mg tablet 10 mg PO DAILY Check with primary doctor 02/23/23 hydrochlorothiazide 12.5 mg tablet 12.5 mg PO DAILY Check with primary doctor 02/23/23 insulin syringe-needle U-100 0.3 mL 31 gauge x 5/16 (BD Insulin Syringe Ultra-Fine) 02/23/23 metformin 500 mg tablet 1,000 mg PO BID Check with primary doctor 02/23/23 azithromycin 500 mg tablet 500 mg PO DAILY 3 days #3 tabs 02/26/23 cefdinir 300 mg capsule 300 mg PO BID #10 caps 02/26/23 The patient was counseled on the following discharge medications and changes in medications for homegoing were reviewed. The Reason for Use, instructions for use, and potential side effects were reviewed for all new medications. The patient's questions regarding all of their medications were answered. The patient was able to verbally demonstrate an understanding of their discharge medications.
== END 2023-02-26 15:40 | disposition home or self-care (01) | DRG 195 ==
LOC: ED 11:17 → MS3 11:54
PROVIDERS: Admitting Provider Internal Medicine; Emergency Provider Emergency Medicine; PCP Internal Medicine; Visit Provider Internal Medicine
DX: J18.9 Pneumonia, unspecified organism (principal); E03.9 Hypothyroidism, unspecified; E11.9 Type 2 diabetes mellitus without complications; J98.01 Acute bronchospasm; I10 Essential (primary) hypertension; E78.5 Hyperlipidemia, unspecified; E66.9 Obesity, unspecified; Z79.84 Long term (current) use of oral hypoglycemic drugs; F32.A Depression, unspecified; R09.02 Hypoxemia; Z68.30 Body mass index [BMI] 30.0-30.9, adult
CPT/HCPCS: 36415; 71046; 80053; 82962; 83036; 83605; 85025; 87449; 87633; 87811; 93005; 94640; 94667; 94668; 99285; J7040; A4216; J0696

== ENCOUNTER → 2023-06-07 | Outpatient (CLI) | payer MEDICARE, OTHER, SELFPAY ==
--- NOTE | 2023-06-07 16:20 | RAD_ITS ---
STUDY: X-RAY CHEST REASON FOR EXAM: Female, 68 years old. PNEUMONIA, HYPOXEMIA, DYSPNEA TECHNIQUE: Frontal and lateral views of the chest. COMPARISON: 02/23/2023. FINDINGS: Minimal irregularity of the lung bases, most suggestive of mild scarring. No definite infiltrates. No effusions. Normal size heart. Normal mediastinum and selvin. Normal visualized pulmonary arteries. There is atherosclerotic tortuosity of the aortic arch and descending thoracic aorta. Normal visualized thoracic spine. Normal visualized ribs, clavicles, and shoulders. There is no demonstrated abnormality of the visualized soft tissue structures of the upper abdomen. RAD/Chest PA and Lateral IMPRESSION: Probable mild scarring in the lung bases. No definite acute chest disease. Electronically Signed: Sergio Hermosillo MD at 21:32 EDT ,
== END | disposition home or self-care (01) ==
LOC: RAD 16:17
PROVIDERS: PCP Internal Medicine; Referring Provider Internal Medicine Pulmonary Disease; Visit Provider Internal Medicine Pulmonary Disease
DX: R09.02 Hypoxemia (principal); R06.00 Dyspnea, unspecified; Z87.01 Personal history of pneumonia (recurrent)
CPT/HCPCS: 71046

== ENCOUNTER → 2023-07-26 | Outpatient (CLI) | payer MEDICARE, OTHER, SELFPAY ==
--- NOTE | 2023-07-26 16:47 | CT_ITS ---
INDICATION: SOB EXAMINATION: CT CHEST WITHOUT CONTRAST - CT Chest W/O Contrast Injection TECHNIQUE: Helically acquired images were obtained of the chest. A radiation dose optimization technique was used for this scan. IV Contrast dosage and agent: None. RADIATION DOSAGE (If Supplied By Facility): CTDIvol = ( 14.09 ) mGy, DLP = ( 512.21 ) mGycm COMPARISON: FINDINGS: LUNGS, PLEURA AND LARGE AIRWAYS: Minimal fibrosis anterior medial right middle lobe and lingula. Inferior right middle lobe moderate infiltrate or atelectasis. Mild fibrosis medial right base. THYROID: No thyroid lesions. HEART AND PERICARDIUM: Heart size is normal. No pericardial effusion. CORONARY ARTERIES: Coronary artery calcification moderate atherosclerotic vascular calcification LAD. VESSELS: Thoracic aorta is not dilated. MEDIASTINUM AND MICHELLE: No mediastinal or hilar adenopathy. Esophagus is unremarkable. No hiatal hernia. UPPER ABDOMEN: No acute pathology. BONES: No suspicious lytic or blastic abnormality. CT/Chest without Contrast IMPRESSION: Moderate inferior right middle lobe atelectasis or infiltrate. Pulmonary fibrosis as above. Moderate atherosclerotic vascular calcification LAD. Electronically Signed: Misha Wharton MD at 10:08 EDT ,
== END | disposition home or self-care (01) ==
LOC: CT 16:44
PROVIDERS: PCP Internal Medicine; Referring Provider Internal Medicine Pulmonary Disease; Visit Provider Internal Medicine Pulmonary Disease
DX: R06.02 Shortness of breath (principal)
CPT/HCPCS: 71250

== ENCOUNTER → 2023-09-19 | Outpatient (CLI) | payer MEDICARE, OTHER, SELFPAY ==
--- NOTE | 2023-09-19 15:55 | BI_ITS ---
MAMMOGRAPHY - BILATERAL SCREENING REASON FOR EXAM: Female, 68 years old. Routine annual screening examination. PERTINENT HISTORY: Non-contributory. TECHNIQUE: Digital bilateral breast merry (3D mammographic acquisition) in the CC and MLO projections. 2-D mediolateral oblique (MLO) and craniocaudad (CC) views of both breasts were obtained. CAD: Full Field Digital Mammography with Computer Added Detection was performed. COMPARISON: None. Baseline examination. FINDINGS: Breast Composition: There are scattered areas of fibroglandular density. There are no dominant masses or suspicious calcifications. No other significant abnormalities are identified. BI/SCRN MAMM (CAD)W/MERRY BILAT IMPRESSION: Negative screening mammogram. Yearly followup mammogram recommended. (A) ASSESSMENT CATEGORY: BIRADS Category 1: Negative. A letter regarding these results will be sent to the patient by the facility within 30 days. Approximately 10% of breast cancers are not detected by mammography. A normal mammogram should not delay biopsy of a clinically suspicious abnormality. [id number] Electronically Signed: Alberto Panchal MD at 7:55 EST ,
--- NOTE | 2023-09-19 15:57 | BD_ITS ---
STUDY: DUAL ENERGY X-RAY ABSORPTIOMETRY / DXA REASON FOR EXAM: Female, 68 years old. [id number] TECHNIQUE: Bone Mineral Density (BMD) measurements of lumbar spine and bilateral hips were obtained. COMPARISON: None. FINDINGS: Lumbar Spine (L1-L4): g/cm2 (0.884) / T-score (-1.5) / Z-score (0.5) Findings are suggestive of osteopenia with a low fracture risk. Left Femur Total: g/cm2 (0.764) / T-score (-1.5) / Z-score (-0.1) Left Femoral Neck: g/cm2 (0.572) / T-score (-2.5) / Z-score (-0.8) Right Femur Total: g/cm2 (0.807) / T-score (-1.1) / Z-score (0.3) Right Femoral Neck: g/cm2 (0.573) / T-score (-2.5) / Z-score (-0.8) BD/Dexa Bone Density Study IMPRESSION: The patient is considered osteopenic as outlined below according to World [employer] Organization (WHO) criteria with a high fracture risk. Reference Information: The T-score is the number of standard deviations above or below the standard which is normal for young adults at their peak bone mineral density. The World Health Organization (WHO) interprets the T-scores as follows: Above -1 Normal bone density Between -1 and -2.5 Osteopenia Equal to / or below -2.5 Osteoporosis As a practical clinical guideline, osteopenia may be graded as follows: Mild -1 through -1.5 Moderate -1.6 through -2.0 Severe -2.1 through -2.4 The Z-score is the number of standard deviations above or below age-matched controls. A Z-score of less than -1.5 would be considered abnormal. References: 1. NIH Osteoporosis and Related Bone Diseases www osteo.org 2. International Society for Clinical Densitometry www iscd.org 3. National Osteoporosis Foundation www nof.org Electronically Signed: Alberto Panchal MD at 15:22 EST ,
== END | disposition home or self-care (01) ==
LOC: OPBD 15:54
PROVIDERS: PCP Internal Medicine; Referring Provider Internal Medicine; Visit Provider Internal Medicine
DX: Z12.31 Encounter for screening mammogram for malignant neoplasm of breast (principal); Z78.0 Asymptomatic menopausal state
CPT/HCPCS: 77063; 77067; 77080

== ENCOUNTER → 2023-10-22 | Outpatient (CLI) | payer MEDICARE, OTHER, SELFPAY ==
--- NOTE | 2023-10-22 10:52 | ECHOD_ITS ---
Reason For Study: HYPERTENSION Procedure This was a 2D Doppler, Color Flow transthoracic echocardiogram. Exam performed in department. Left Ventricle Normal LV size. Left ventricular systolic function is normal. The estimated ejection fraction is 65 %. Stage 1 diastolic dysfunction. No regional wall motion abnormalities noted. Right Ventricle Normal RV size. Normal systolic function. Atria Normal left atrium. Normal right atrium. Prominent eustachian valve. Probable chiari network. Bubble contrast study negative for right to left interatrial shunt. Mitral Valve Normal mitral valve. Mild (1+) eccentric mitral valve insufficiency. Tricuspid Valve Normal tricuspid valve. Mild tricuspid valve insufficiency. Pulmonary artery systolic pressure is 30 mmHg. Aortic Valve Trisinus/trileaflet aortic valve. Mild (1+) eccentric aortic valve insufficiency. Pulmonic Valve Normal pulmonic valve. Great Vessels Normal aortic root. The pulmonary artery is normal size. Normal inferior vena cava. Pericardium/Pleural No pericardial effusion. Medication 22 gauge I.V. with prn adaptor inserted into right arm. Performed a rapid injection of agitated mix of 9 cc saline and 1cc air to assess for atrial septal defect. MMode/2D Measurements & Calculations LVIDd: 4.4 cm IVSd: 1.0 cm Ao root diam: 3.0 cm LVIDs: 3.0 cm LVPWd: 0.87 cm RVDd: 3.6 cm FS: 32.1 % LAV(MOD-bp): 34.8 ml LVAd ap4: 29.0 cm2 SV(MOD-sp4): 50.4 ml LAV(MOD-bp) Indexed: 18.5 ml/m2 LVLd ap4: 8.0 cm LAV(MOD-sp2): 35.0 ml EDV(MOD-sp4): 85.1 ml LAV(MOD-sp4): 33.8 ml EDV(sp4-el): 89.1 ml LVAs ap4: 16.2 cm2 LVLs ap4: 6.6 cm ESV(MOD-sp4): 34.7 ml ESV(sp4-el): 34.0 ml EF(MOD-sp4): 59.3 % EF(sp4-el): 61.9 % SV(sp4-el): 55.1 ml LA A4 area: 14.4 cm2 LA dimension(2D): 3.1 cm RA A4 area: 12.4 cm2 TAPSE: 2.2 cm Time Measurements MV dec time: 0.28 sec Doppler Measurements & Calculations MV E max robbin: 85.5 cm/sec Lat Peak E' Robbin: 7.2 cm/sec Med Peak E' Robbin: 7.4 cm/sec MV A max robbin: 112.4 cm/sec E/E' lat: 11.9 E/E' med: 11.5 MV E/A: 0.76 Ao V2 max: 168.5 cm/sec AI max robbin: 457.6 cm/sec LV V1 max: 139.0 cm/sec Ao max P.4 mmHg AI max P.8 mmHg LV V1 max P.7 mmHg AI dec slope: 235.8 cm/sec2 AI P1/2t: 568.4 msec PA V2 max: 87.6 cm/sec TR max robbin: 250.9 cm/sec TR max P.2 mmHg ECHO/Echo Complete Interpretation Summary Normal LV size. Left ventricular systolic function is normal. The estimated ejection fraction is 65 %. Bubble contrast study negative for right to left interatrial shunt. Stage 1 diastolic dysfunction. Pulmonary artery systolic pressure is 30 mmHg. Ordering Physician: Lai Mancia V Referring Physician: SARAI ALBERTO Performed By: Megan Holt RDCS
== END | disposition home or self-care (01) ==
LOC: CVS 10:52
PROVIDERS: PCP Internal Medicine; Referring Provider Internal Medicine Pulmonary Disease; Visit Provider Internal Medicine Pulmonary Disease
DX: R01.1 Cardiac murmur, unspecified (principal); I27.20 Pulmonary hypertension, unspecified
CPT/HCPCS: 93306; A4216

== ENCOUNTER → 2023-10-29 | Outpatient (CLI) | payer MEDICARE, OTHER, SELFPAY ==
[2023-10-29 10:55] LABS: Absolute Lymphocyte Count 1.46 X10^3/uL (0.83-4.51); Absolute Neutrophil Count 4.9 X10^3/uL (2.0-7.7); Basophil# 0.02 X10^3/uL; Basophil% 0.3 % (0-1); Eosinophil# 0.11 X10^3/uL; Eosinophils% 1.6 % (0-5); Hematocrit 43.1 % (37-47); Hemoglobin 13.7 g/dL (12.0-15.0); Lymphocyte # 1.46 X10^3/ul (0.83-4.51); Lymphocyte % 20.8 % (19-41); Mean Corp Hgb Conc 31.8 g/dL (32-36); Mean Corpuscular Hgb 29.5 pg (27.0-32.0); Mean Corpuscular Volume 92.7 fL (81-99); Mean Platelet Vol. 10.4 fl (6.2-12.0); Monocyte# 0.48 X10^3/uL; Monocyte% 6.8 % (0-10); NRBC Flagged by Analyzer 0 % (0-5); Neutrophil # 4.91 X10^3/uL (2.7-7.7); Neutrophil % 70.1 % (47-70); Platelet Count 220 K/mm3 (150-450); RBC Distribution Width CV 13.5 % (11.6-14.6); RBC Distribution Width SD 45.9 fl (35.1-43.9); Red Blood Count 4.65 M/mm3 (4.2-5.4)
[2023-10-29 11:56] LABS: ALB/GLOB Ratio 0.9 RATIO (0.9-2.4); AST(SGOT) 11 U/L (15-37); Alanine Aminotransfer ALT/SGPT 15 U/L (13-56); Albumin, Serum 3.6 g/dL (3.2-5.0); Alkaline Phosphatase 93 U/L (45-117); Anion Gap 3 (5-15); BUN 14 mg/dL (7-18); BUN/Creat Ratio 22.1 RATIO (10-20); Chloride 109 mmol/L (98-107); Cholesterol 140 mg/dL (200); Creatinine, Serum 0.63 mg/dL (0.55-1.02); EST Glomerular Filtration Rate 99 mL/min (>60); Est Glom Filt Rate - Afr Amer 120 mL/min (>60); Globulin 4.1 g/dL (2.2-4.2); Glucose 119 mg/dL (74-106); High Density Lipoprotein 44 mg/dL; Potassium 3.5 mmol/L (3.5-5.1); Protein, Total 7.7 g/dL (6.4-8.2); Sodium Level 143 mmol/L (136-145); Thyroid Stim Hormone (TSH) 1.42 uIU/mL (0.358-3.74); Triglycerides 128 mg/dL; Very Low Density Lipoprotein 26 mg/dL (5-40)
== END | disposition home or self-care (01) ==
LOC: PAVLAB 10:20
PROVIDERS: PCP Internal Medicine; Referring Provider Internal Medicine; Visit Provider Internal Medicine
DX: I10 Essential (primary) hypertension (principal); R80.9 Proteinuria, unspecified; E55.9 Vitamin D deficiency, unspecified; E78.00 Pure hypercholesterolemia, unspecified; E03.9 Hypothyroidism, unspecified
CPT/HCPCS: 36415; 80053; 80061; 82306; 84443; 85025

== ENCOUNTER → 2023-10-30 | Outpatient (CLI) | payer MEDICARE, OTHER, SELFPAY ==
[2023-10-30 08:14] LABS: Red Blood Cells-Urine 0 SEEN /hpf (0-5)
[2023-10-30 08:25] LABS: Color, Urine Yellow (Yellow); Glucose, Dipstick Normal (Normal); Ketone-Dipstick Negative (Negative); Leukocyte Esterase-Dipstick 25 /ul (Negative); Nitrite-Dipstick Negative (Negative); Occult Blood-Urine Negative /ul (Negative); Protein-Dipstick 30 mg/dl (Negative); Specific Gravity, Urine 1.015 (1.002-1.030); Urine Bilirubin Dipstick Negative (Negative); Urine Clarity Sl. Cloudy (Clear); Urine Urobilinogen 1 mg/dl (Normal)
[2023-10-30 08:31] LABS: Squamous Epithelial Cells - UA 0-5 SEEN /hpf (5-10); White Blood Cells 0-5 SEEN /hpf (0-5)
[2023-10-30 08:32] LABS: Bacteria RARE /hpf (None Seen); Mucous, Urine 1+ /hpf (<or=2+)
[2023-10-30 10:22] LABS: Microalbumin:Creatinine Ratio 117.1 mg/g CRE (<30 mg/g CRE)
== END | disposition home or self-care (01) ==
LOC: LABSPEC 08:00
PROVIDERS: PCP Internal Medicine; Referring Provider Internal Medicine; Visit Provider Internal Medicine
DX: R80.9 Proteinuria, unspecified (principal); I10 Essential (primary) hypertension
CPT/HCPCS: 81001; 82043; 82570

== ENCOUNTER 2023-11-28 13:59 | Outpatient (CLI) | payer MEDICARE, OTHER, SELFPAY ==
[2023-11-28 14:26] VITALS: BP 150/71; PULSE 81; RESP 16; TEMP 36.9; O2SAT 96; BMI 30.6
[2023-11-28] MEDS: Zoledronic Acid 5 MG 100 ML 300 MG IV (14:34)
[2023-11-28] MEDS: 0.9% NaCl Peripheral Flush Adult/Peds IV (14:35)
[2023-11-28 14:59] VITALS: BP 157/81; PULSE 76; RESP 16; TEMP 37.2; O2SAT 97
== END 2023-11-28 14:00 | disposition home or self-care (01) ==
LOC: MEDOUTP 14:00
PROVIDERS: PCP Internal Medicine; Referring Provider Nurse Practitioner Family; Visit Provider Nurse Practitioner Family
DX: M80.00XA Age-related osteoporosis with current pathological fracture, unspecified site, initial encounter for fracture (principal)
CPT/HCPCS: 96365; A4216; J3489

== ENCOUNTER → 2024-03-12 | Outpatient (CLI) | payer MEDICARE, OTHER, SELFPAY | END | disposition home or self-care (01) | LOC: LAB 14:32 | PROVIDERS: PCP Internal Medicine; Referring Provider Nurse Practitioner Family; Visit Provider Nurse Practitioner Family | DX: E11.9 Type 2 diabetes mellitus without complications (principal) | CPT/HCPCS: 36415; 83036 ==

== ENCOUNTER → 2024-07-10 | Outpatient (CLI) | payer MEDICARE, OTHER, SELFPAY ==
[2024-07-10 14:30] LABS: Hemoglobin A1c 7.2 % (3.8-5.6)
== END | disposition home or self-care (01) ==
PROVIDERS: PCP Internal Medicine; Referring Provider Nurse Practitioner Family; Visit Provider Nurse Practitioner Family
DX: E03.9 Hypothyroidism, unspecified (principal); E11.65 Type 2 diabetes mellitus with hyperglycemia
CPT/HCPCS: 36415; 83036; 84439; 84443

== ENCOUNTER → 2024-11-09 | Outpatient (CLI) | payer MEDICARE, OTHER, SELFPAY ==
[2024-11-09 12:07] LABS: Microalbumin:Creatinine Ratio 128.6 mg/g CRE (<30 mg/g CRE); Vitamin D,25 Hydroxy 23.2 ng/mL
[2024-11-09 12:11] LABS: ALB/GLOB Ratio 0.8 RATIO (0.9-2.4); AST(SGOT) 10 U/L (15-37); Alanine Aminotransfer ALT/SGPT 15 U/L (13-56); Albumin, Serum 3.4 g/dL (3.2-5.0); Alkaline Phosphatase 97 U/L (45-117); Anion Gap 6 (5-15); BUN 18 mg/dL (7-18); BUN/Creat Ratio 25.9 RATIO (10-20); Calcium,Total 9.2 mg/dL (8.5-10.1); Chloride 103 mmol/L (98-107); Cholesterol 148 mg/dL (200); EST Glomerular Filtration Rate 89 mL/min (>60); Est Glom Filt Rate - Afr Amer 108 mL/min (>60); Globulin 4.1 g/dL (2.2-4.2); Glucose 147 mg/dL (74-106); High Density Lipoprotein 56 mg/dL; Potassium 3.8 mmol/L (3.5-5.1); Protein, Total 7.5 g/dL (6.4-8.2); Sodium Level 141 mmol/L (136-145); T4 Free Direct 1.19 ng/dL (0.76-1.46); Triglycerides 117 mg/dL; Very Low Density Lipoprotein 23 mg/dL (5-40)
== END | disposition home or self-care (01) ==
LOC: LAB 10:51 → LABSPEC 11:28
PROVIDERS: PCP Internal Medicine; Referring Provider Nurse Practitioner Family; Visit Provider Nurse Practitioner Family
DX: E11.65 Type 2 diabetes mellitus with hyperglycemia (principal); E55.9 Vitamin D deficiency, unspecified
CPT/HCPCS: 36415; 80053; 80061; 82043; 82306; 82570; 84439; 84443

== ENCOUNTER → 2025-01-22 | Outpatient (CLI) | payer MEDICARE, OTHER, SELFPAY ==
[2025-01-22 13:13] LABS: Absolute Lymphocyte Count 1.58 X10^3/uL (0.83-4.51); Absolute Neutrophil Count 4.3 X10^3/uL (2.0-7.7); Basophil# 0.02 X10^3/uL; Basophil% 0.3 % (0-1); Eosinophils% 1.5 % (0-5); Hematocrit 42.3 % (37-47); Hemoglobin 14.1 g/dL (12.0-15.0); Lymphocyte # 1.58 X10^3/ul (0.83-4.51); Lymphocyte % 24.2 % (19-41); Mean Corp Hgb Conc 33.3 g/dL (32-36); Mean Corpuscular Hgb 30.1 pg (27.0-32.0); Mean Corpuscular Volume 90.4 fL (81-99); Mean Platelet Vol. 11.1 fl (6.2-12.0); Monocyte# 0.46 X10^3/uL; Monocyte% 7.1 % (0-10); NRBC Flagged by Analyzer 0 % (0-5); Neutrophil # 4.34 X10^3/uL (2.7-7.7); Neutrophil % 66.6 % (47-70); Platelet Count 201 K/mm3 (150-450); RBC Distribution Width CV 13.3 % (11.6-14.6); RBC Distribution Width SD 43.8 fl (35.1-43.9); Red Blood Count 4.68 M/mm3 (4.2-5.4); White Blood Count 6.5 K/mm3 (4.4-11.0)
[2025-01-22 14:15] LABS: Microalbumin:Creatinine Ratio 850.7 mg/g CRE
[2025-01-22 14:18] LABS: Hemoglobin A1c 8.5 % (<=5.6)
[2025-01-22 15:35] LABS: ALB/GLOB Ratio 1.3 RATIO (0.9-2.4); AST(SGOT) 16 U/L (<=31); Alanine Aminotransfer ALT/SGPT 10 U/L (<=34); Albumin, Serum 4.1 g/dL (3.4-4.8); Alkaline Phosphatase 84 U/L (35-104); Anion Gap 11 (5-15); BUN 17 mg/dL (4-19); BUN/Creat Ratio 26.3 RATIO (10-20); Calcium,Total 9.2 mg/dL (7.6-11.0); Chloride 104 mmol/L (98-108); Cholesterol 146 mg/dL (<=200); Creatinine, Serum 0.66 mg/dL (0.70-1.20); EST Glomerular Filtration Rate 95 (>60); Globulin 3.1 g/dL (2.2-4.2); Glucose 89 mg/dL (70-99); High Density Lipoprotein 42 mg/dL; Low Density Lipoprotein Calc. 83 mg/dL; Potassium 3.4 mmol/L (3.3-5.1); Protein, Total 7.2 g/dL (5.9-8.4); Sodium Level 143 mmol/L (133-145); Total Bilirubin 0.57 mg/dL (0.00-1.30); Triglycerides 104 mg/dL; Very Low Density Lipoprotein 21 mg/dL (5-40); Vitamin D,25 Hydroxy 26.2 ng/mL (30-100); cholesterol:hdl ratio screen 3.47
[2025-01-25 11:08] LABS: Lipoprotein A 155.1 nmol/L (<75.0)
== END | disposition home or self-care (01) ==
LOC: LAB 11:35
PROVIDERS: PCP Internal Medicine; Referring Provider Internal Medicine; Visit Provider Internal Medicine
DX: E11.65 Type 2 diabetes mellitus with hyperglycemia (principal); E78.00 Pure hypercholesterolemia, unspecified; E55.9 Vitamin D deficiency, unspecified; E03.9 Hypothyroidism, unspecified; R80.9 Proteinuria, unspecified
CPT/HCPCS: 36415; 80053; 80061; 82043; 82306; 82570; 83036; 83695; 84443; 85025

== ENCOUNTER 2025-02-11 09:25 | Outpatient (CLI) | payer MEDICARE, OTHER, SELFPAY ==
[2025-02-11 09:47] VITALS: BP 154/76; PULSE 73; RESP 16; TEMP 36.1; O2SAT 95; BMI 29.7
[2025-02-11] MEDS: 0.9% NaCl IVPB Med Flush (100mL) 15 ML IV (09:54)
[2025-02-11] MEDS: 0.9% NaCl Peripheral Flush Adult IV (09:54)
[2025-02-11] MEDS: Zoledronic Acid 5 MG 100 ML 300 MG IV (09:54)
[2025-02-11 10:41] VITALS: BP 150/81; PULSE 79
== END 2025-02-11 23:59 | disposition home or self-care (01) ==
LOC: MEDOUTP 09:26
PROVIDERS: PCP Internal Medicine; Referring Provider Internal Medicine Endocrinology, Diabetes & Metabolism; Visit Provider Internal Medicine Endocrinology, Diabetes & Metabolism
DX: M81.0 Age-related osteoporosis without current pathological fracture (principal)
CPT/HCPCS: 96365; A4216; J3489

== ENCOUNTER → 2025-03-02 | Outpatient (CLI) | payer MEDICARE, OTHER, SELFPAY ==
[2025-03-02 11:22] LABS: Absolute Lymphocyte Count 2.42 X10^3/uL (0.83-4.51); Absolute Neutrophil Count 7.9 X10^3/uL (2.0-7.7); Basophil# 0.09 X10^3/uL; Basophil% 0.8 % (0-1); Eosinophil# 0.23 X10^3/uL; Hematocrit 42.5 % (37-47); Hemoglobin 13.8 g/dL (12.0-15.0); Lymphocyte # 2.42 X10^3/ul (0.83-4.51); Mean Corp Hgb Conc 32.5 g/dL (32-36); Mean Corpuscular Hgb 29.9 pg (27.0-32.0); Mean Platelet Vol. 10.3 fl (6.2-12.0); Monocyte# 0.74 X10^3/uL; Monocyte% 6.4 % (0-10); NRBC Flagged by Analyzer 0 % (0-5); Neutrophil # 7.87 X10^3/uL (2.7-7.7); Neutrophil % 68.3 % (47-70); Platelet Count 313 K/mm3 (150-450); RBC Distribution Width CV 13.2 % (11.6-14.6); RBC Distribution Width SD 44.5 fl (35.1-43.9); Red Blood Count 4.62 M/mm3 (4.2-5.4); White Blood Count 11.5 K/mm3 (4.4-11.0)
== END | disposition home or self-care (01) ==
LOC: LAB 10:18
PROVIDERS: PCP Internal Medicine; Referring Provider Internal Medicine Pulmonary Disease; Visit Provider Internal Medicine Pulmonary Disease
DX: J45.40 Moderate persistent asthma, uncomplicated (principal); R06.02 Shortness of breath
CPT/HCPCS: 36415; 85025

== ENCOUNTER → 2025-03-22 | Outpatient (CLI) | payer MEDICARE, OTHER, SELFPAY ==
--- NOTE | 2025-03-22 13:42 | CT_ITS ---
PROCEDURE: CHEST WITHOUT CONTRAST 03/22/2025 REASON FOR EXAM: HYPOXEMIA Shortness of breath/cough. TECHNIQUE: Chest CT without contrast. Coronal and Sagittal reconstruction series were provided. One or more dose reduction techniques were used (e.g., Automated exposure control, adjustment of the mA and/or kV according to patient size, use of iterative reconstruction technique RADIATION DOSE SUMMARY: CTDlvol: 10.63 mGy DLP: 356.07 mGycm COMPARISON: None FINDINGS: Hardware: None Lymph nodes: Small fat containing bilateral axillary lymph nodes. Small benign- appearing mediastinal lymph nodes. No hilar lymph nodes. Heart and Vasculature: The heart is nonenlarged. Coronary Artery Calcifications: Present Lungs and Airways: There is evidence of atelectasis and volume loss in the medial aspect of the right middle lobe. No suspicious pulmonary nodules are seen. Pleura: No evidence of pleural effusion. Upper Abdomen: Unremarkable. Bones: Degenerative changes of the thoracic spine. CT/Chest without Contrast IMPRESSION: Coronary artery calcification (CAC) is is present Atelectasis and volume loss in the anterior medial aspect of the right middle l obe. Reading Location: [id number]
== END | disposition home or self-care (01) ==
LOC: CT 13:30
PROVIDERS: PCP Internal Medicine; Referring Provider Internal Medicine Pulmonary Disease; Visit Provider Internal Medicine Pulmonary Disease
DX: R09.02 Hypoxemia (principal)
CPT/HCPCS: 71250

== ENCOUNTER 2025-09-02 18:23 | Inpatient (IN) | payer MEDICARE, OTHER, SELFPAY ==
[2025-09-02] VITALS (9 sets, daily range): BP systolic 157–177; BP diastolic 72–83; PULSE 95–107; RESP 18–27; TEMP 36.2–37.3; O2SAT 88–94; BMI 28.9; BMI 28.8
--- NOTE | 2025-09-02 18:40 | RAD_ITS ---
PROCEDURE: CHEST PA AND LATERAL 09/02/2025 REASON FOR EXAM: COUGH TECHNIQUE: Procedure Code: RADCXR Modality: DX Procedure: CHEST PA AND LATERAL COMPARISON: 06/07/2023. FINDINGS: The heart is enlarged. Mixed reticular and consolidative opacities which may represent infection. No acute osseous abnormalities. RAD/Chest PA and Lateral IMPRESSION: Pulmonary findings as above. Reading Location: [id number]
--- NOTE | 2025-09-02 18:41 | EKG12_ITS ---
Test Reason : DYSRHYTHMIA Blood Pressure : */* mmHG Vent. Rate : 101 BPM Atrial Rate : 101 BPM P-R Int : 172 ms QRS Dur : 104 ms QT Int : 354 ms P-R-T Axes : 37 23 113 degrees QTcB Int : 459 ms Sinus tachycardia Nonspecific ST and T wave abnormality Abnormal ECG Confirmed by TESS CORDOVA, MIGNON ([id number]), photo editor CHARLETTE PETTY ([id number]) on 09/03/2025 9:15:44 AM Referred By: Confirmed By: MIGNON PULIDO MD
--- NOTE | 2025-09-02 18:53 | CT_ITS ---
PROCEDURE: CT BRAIN/HEAD WITHOUT CONTRAST 09/02/2025 REASON FOR EXAM: AMS TECHNIQUE: Procedure Code: CTBR Modality: CT Procedure: BRAIN/HEAD WITHOUT CONTRAST Coronal and Sagittal reconstruction series were provided. One or more dose reduction techniques were used (e.g., Automated exposure control, adjustment of the mA and/or kV according to patient size, use of iterative reconstruction technique. RADIATION DOSE SUMMARY: CTDlvol: 44.99 mGy DLP: 880.47 mGycm COMPARISON: 03/02/2021 FINDINGS: No acute intracranial hemorrhage, extra-axial collection, mass effect or evidence of acute infarct. Ventricular and sulcal size and configuration are within normal limits for age. Moderate chronic microangiopathic changes in the supratentorial white matter, grossly stable. Absent chehalis ocular lenses. Atherosclerotic vascular calcifications. Intact skull base and calvarium. Mucoid debris in the right sphenoid sinus, otherwise the paranasal sinuses and mastoid air cells are clear. CT/Brain/Head without Contrast IMPRESSION: No evidence of acute intracranial pathology. Mild parenchymal volume loss and moderate chronic microangiopathic changes. Reading Location: [id number]
[2025-09-02 19:01] LABS: Hematocrit 37.4 % (37-47); Hemoglobin 12.6 g/dL (12.0-15.0); Immature Granulocytes Count 0.040 X10^3/uL (0.0-0.0); Mean Corp Hgb Conc 33.7 g/dL (32-36); Mean Corpuscular Volume 90.1 fL (81-99); Mean Platelet Vol. 10.1 fl (6.2-12.0); NRBC Flagged by Analyzer 0 % (0-5); Platelet Count 187 K/mm3 (150-450); RBC Distribution Width CV 13.3 % (11.6-14.6); RBC Distribution Width SD 44.1 fl (35.1-43.9); Red Blood Count 4.15 M/mm3 (4.2-5.4); White Blood Count 11.8 K/mm3 (4.4-11.0)
[2025-09-02] MEDS: 0.9% Normal Saline (1000mL) 1,000 ML 999 ML IV ×3 (19:01→22:23)
--- NOTE | 2025-09-02 19:06 | EX.ED.DYSGE1 ---
HPI History of Present Illness Chief Complaint: General Illness Narrative Narrative: Patient is a 70-year-old female past medical history of diabetes, asthma, hypercholesteremia, hypertension who presented to the emergency department the chief complaint of weakness, fatigue and feeling unwell overall. States that one of her grandchildren has recently been diagnosed with RSV. She states that her symptoms started on Saturday and have been progressively worsening prompting her to come here for further evaluation management. Per family ember at bedside they also noted that she is having some confusion with this as well. [facility] Medical History Obesity (BMI 30.0-34.9) Overweight (BMI 25.0-29.9) Mixed hyperlipidemia Benign hypertension Vitamin deficiency High triglycerides High cholesterol Diabetes Cataracts, bilateral Asthma Home Medications ?Medication ?Instructions ?Recorded ?Last Taken ?Type cholecalciferol (vitamin D3) 125 125 mcg PO DAILY Check with 02/14/21 Unknown History mcg (5,000 unit) capsule primary doctor levothyroxine 50 mcg capsule 50 mcg PO DAILY Check with primary 02/14/21 Unknown History doctor rosuvastatin 10 mg tablet 10 mg PO QHS Check with primary 02/14/21 Unknown History doctor amlodipine 10 mg tablet 10 mg PO DAILY Check with primary 02/23/23 Unknown History doctor insulin human U-100 NPH-regulr 15 unit (0.15 mL) subcut BID #10 mL 03/18/23 Unknown Rx 70-30 mix 100 unit/mL subcutaneous susp (Novolin 70/30 U-100 Insulin) fluticasone 232mcg-salmeterol 1 inh inhalation BID 08/08/23 Unknown History 14mcg/actuation breath act,powder sensor 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 sensor (FreeStyle #2 ea 03/12/24 Unknown Rx Angeline 3 Sensor device) 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,multimedia specialist,cont #1 ea 03/12/24 Unknown Rx (FreeStyle Angeline 3 [place]) insulin syringe-needle U-100 0.3 #100 ea 07/02/24 Unknown Rx mL 31 gauge x 5/16 (BD Insulin Syringe Ultra-Fine) semaglutide 2 mg/dose (8 mg/3 mL) 2 mg (0.75 mL) subcut QWEEK #3 mL 07/06/24 Unknown Rx subcutaneous pen injector (Ozempic) prednisone 10 mg tablet mg PO 11/09/24 Unknown History zoledronic acid 5 mg/100 mL in See Rx Instructions .Route 11/11/24 Unknown Rx mannitol 5 %-water intravenous .COMPLEX #100 mL piggybck metformin 500 mg tablet 1,000 mg (2 x 500 mg) PO BID #360 12/09/24 Unknown Rx tabs pen needle, diabetic 32 gauge x #100 ea 05/21/25 Unknown Rx dupilumab 100 mg/0.67 mL 200 mg subcut Q2W 06/14/25 Unknown History subcutaneous syringe (Dupixent) venlafaxine 75 mg tablet 75 mg PO DAILY Check with primary 08/19/25 Unknown Rx doctor #30 tabs Allergy/AdvReac Type Severity Reaction Status Date / Time glimepiride (From Amaryl) Allergy Mild rash Verified 09/02/25 18:25 lisinopril Allergy Mild rash Verified 09/02/25 18:25 losartan Allergy Mild rash Verified 09/02/25 18:25 Family History Sister Arthritis Colon cancer, Onset Age: 54 Mother Colon cancer, Onset Age: 71 Diabetes Myocardial infarction, Onset Age: 71 Aunt Uterine cancer Surgical History Hx of appendectomy Social History household members: none Smoking Status: Never smoker alcohol intake: never substance use type: does not use ROS ROS ED ROS Narrative Constitutional: Denies any headache, lightness, dizziness Eyes: Denies double vision Cardiovascular: Denies chest pain Respiratory: Denies shortness of breath Abdomen: Denies any nausea vomiting diarrhea : Denies urinary symptoms Neurological: Complains of generalized weakness as noted above denies any numbness or tingling Skin: Denies rashes or lesions EXAM Physical Exam Narrative Exam Narrative: General: Patient was lying in bed rest comfortably did not appear to be in acute distress Head: Atraumatic, normocephalic Eyes: PERRL bilaterally, EOMI bilaterally, no conjunctival injection noted Neck: Soft, supple, trachea midline Cardiovascular: Patient is tachycardic with a regular rhythm Respiratory: Clear to auscultation bilaterally Abdomen: Soft, nondistended, tender to palpation Extremities: +4/5 strength noted in the bilateral lower extremities Neurological: Patient following commands that she was at [facility] years 2024 NIH of 0 GCS 15 Skin: Warm, dry, intact no rashes or lesions noted Const Vital Signs: 09/02/25 18:24 09/02/25 18:32 09/02/25 19:02 Temperature 97.2 F L Temperature Source Temporal Pulse Rate 107 H Respiratory Rate 24 H Respiratory Effort Normal Respiratory Pattern Normal Blood Pressure 177/76 H Blood Pressure Mean 109 Pulse Ox 92 Oxygen Delivery Method Room Air Room Air Oxygen Flow Rate (L/min) 09/02/25 19:51 09/02/25 19:51 09/02/25 19:53 Temperature 99.2 F H Temperature Source Oral Pulse Rate 100 Respiratory Rate 27 H Respiratory Effort Respiratory Pattern Blood Pressure Blood Pressure Mean Pulse Ox 88 88 Oxygen Delivery Method Room Air Oxygen Flow Rate (L/min) 09/02/25 19:54 09/02/25 20:00 Temperature Temperature Source Pulse Rate 99 Respiratory Rate 25 H Respiratory Effort Respiratory Pattern Blood Pressure 167/72 H Blood Pressure Mean 99 Pulse Ox 90 92 Oxygen Delivery Method Nasal Cannula Oxygen Flow Rate (L/min) 3 MDM MDM MDM Narrative Medical decision making narrative: Patient is a 70-year-old female who presents to the emergency department the chief complaint of generalized weakness, fatigue and feeling out of the weather. On the differential diagnose includes but not limited to hyperglycemia, DKA, upper respiratory infection secondary viral etiology, pneumonia. Once workup is obtained and reviewed she will be reevaluated. Patient ordered 30 cc/kg bolus of IV fluids at 1840. Reperfusion assessment performed patient remains hypertensive no indication for vasopressors Patient CBC reviewed and showed leukocytosis of 11,000, hemoglobin was 12.6, platelet count was noted be 187. Patient INR was 1.3, PT of 16, sodium was 137, [place] 3.4, creatinine 0.75. Patient's AST and ALT are 29 and 11 respectively urinalysis reviewed showed 25 leukocyte esterase negative nitrates microscopic pending. Patient's chest x-ray was reviewed by myself by radiology which showed evidence of multifocal pneumonia. Patient CT head brain without contrast reviewed showed no acute intracranial pathology. Patient's EKG reviewed and showed sinus tachycardia at the rate of 101 bpm RI interval 172 multiple areas of artifact noted. Nonspecific ST changes noted Patient did become hypoxic here on room air therefore she was placed on 3 L nasal cannula after dropping to 88%. Patient will be given Rocephin and azithromycin this was ordered at 2003 she will also be given 125 Solu-Medrol as she has a history of asthma. At this point time will discuss case with hospitalist for admission. Discussed case with hospitalist Dr. Chang who accept patient for admission. Patient was notified as well as family at bedside all questions answered Lab Data Labs: Laboratory Results - last 24 hr 09/02/25 09/02/25 18:50 19:35 WBC 11.8 H RBC 4.15 L Hgb 12.6 Hct 37.4 MCV 90.1 MCH 30.4 MCHC 33.7 RDW Std Deviation 44.1 H RDW Coeff of Sylvester 13.3 Plt Count 187 MPV 10.1 Immature Gran % (Auto) 0.300 Neut % (Auto) 82.9 H Lymph % (Auto) 6.6 L [place] % (Auto) 9.7 Eos % (Auto) 0.3 Baso % (Auto) 0.2 Absolute Neuts (auto) 9.8 H Absolute Lymphs (auto) 0.78 L Nucleated RBC % 0 PT 16.0 H INR 1.3 APTT 36.8 H Sodium 137 Potassium 3.4 Chloride 98 Carbon Dioxide 25.6 Anion Gap 13 BUN 12 Creatinine 0.75 Estim Creat Clear Calc 68.90 Est GFR (MDRD) Non-Af 87 BUN/Creatinine Ratio 16.6 Glucose 201 H Lactic Acid 1.4 Calcium 9.1 Total Bilirubin 1.56 H AST 29 ALT 21 Alkaline Phosphatase 103 Total Protein 7.3 Albumin 3.9 Globulin 3.4 Albumin/Globulin Ratio 1.1 Urine Color Yellow Urine Clarity Clear Urine pH 6.5 Ur Specific [place] 1.015 Urine Protein 100 H Urine Glucose (UA) 50 H Urine Ketones 50 H Urine Occult Blood 25 H Urine Nitrite Negative Urine Bilirubin 1 H Urine Urobilinogen 12 H Ur Leukocyte Esterase 25 H Radiography Diagnostic Testing: Clinical Impression(s) from Imaging Studies Chest X-Ray 09/02/25 18:40 IMPRESSION: Pulmonary findings as above. Reading Location: [address] 09/02/25 18:53 IMPRESSION: No evidence of acute intracranial pathology. Mild parenchymal volume loss and moderate chronic microangiopathic changes. Reading Location: [id number] Discharge Plan Dx/Rx/DC Orders Clinical Impression: Asthma, Acute hypoxemic respiratory failure, Multifocal pneumonia, Benign hypertension Disposition Disposition: Acute Care Hospital [facility]
[2025-09-02 19:40] LABS: Mucous, Urine 0 SEEN /hpf (<or=2+)
[2025-09-02 19:42] LABS: Color, Urine Yellow (Yellow); Glucose, Dipstick 50 mg/dl (Normal); Ketone-Dipstick 50 mg/dl (Negative); Leukocyte Esterase-Dipstick 25 /ul (Negative); Nitrite-Dipstick Negative (Negative); Occult Blood-Urine 25 /ul (Negative); Protein-Dipstick 100 mg/dl (Negative); Specific Gravity, Urine 1.015 (1.002-1.030)
--- OUTSIDE RECORDS SUMMARY | 2025-09-02 19:42 | XMS RPT_ITS | CCD ---
Author Organization [facility] Care Team Providers Care Resident Program Specialist Name Role Phone Madelin Alberto Unavailable Sofi Santana Unavailable Carlos Alberto Miner Unavailable [facility] Unavailable Hiwot Lowe Unavailable Unavailable MessengerKiki Unavailable Unavailable Unavailable Unavailable Madelin Alberto Unavailable Sofi Santana Unavailable Carlos Alberto Miner Unavailable [facility] Unavailable Hiwot Lowe Unavailable Unavailable Gravius, Tracy Unavailable Unavailable Messenger, Kiki Unavailable Unavailable Unavailable Unavailable Elvia Sylvester Unavailable Unavailable Gravius, Tracy Unavailable Unavailable Messenger, Kiki Unavailable Unavailable Unavailable Unavailable Bernarda Minaya Unavailable Unavailable Ciesa, Monica Unavailable Miguel COLEMAN Madelin Unavailable Sofi Santana Unavailable Carlos Alberto Miner MD Unavailable [facility] Unavailable Hiwot Lowe Unavailable Unavailable Cross ATTENUATOR, Elvia Unavailable Unavailable Gravius FOOD QUALITY TECHNICIAN, Tracy Unavailable Unavailable Messenger RN, Kiki Unavailable Unavailable Unavailable Unavailable Dr. Stu Her Unavailable [place] ATTENUATOR, Krissy Unavailable Unavailable [facility] Unavailable Dr. Madelin Alberto Primary Care Provider Dr. Madelin Alberto Referring Provider JOVI Akbar Attending Provider Madelin Alberto DO Unavailable [facility] Unavailable Sofi Santana Unavailable Carlos Alberto Miner MD Unavailable Dr. Stu Her Unavailable [facility], [facility] Unavailable Hiwot Lowe Unavailable Unavailable Gravius FOOD QUALITY TECHNICIAN, Tracy Unavailable Unavailable Cross ATTENUATOR, Elvia Unavailable Unavailable Payton RN, Kiki Unavailable Unavailable Unavailable Unavailable Madelin Alberto DO Unavailable [place] OMA, Kayela Unavailable Unavailable Madelin Alberto DO Attending Unavailable Madelin Alberto DO Referring Unavailable Madelin Alberto DO Consulting Unavailable Dr. Madelin Alberto Primary Care Provider Dr. Brando Weiss Emergency Provider [phone] Misha Rosario Admit Provider Dr. Misha Rosario Attending Provider Dr. Misha Rosario Other Provider Dr. Simone Benitez Attending Provider Unavailable Dr. Simone Benitez Other Provider Unavailable [place] ATTENUATOR, Wilfrid Unavailable Unavailable Bianca Brewster MA Unavailable Unavailable Sibilia, Lai Unavailable [place] OMA, Sarah Unavailable Unavailable Dr. Madelin Alberto Referring Provider JOVI Akbar Attending Provider Dr. Madelin Alberto Primary Care Provider Dr. Madelin Alberto Referring Provider JOVI Akbar Attending Provider Dr. Jesse Knutson Attending Provider Miguel DO, Dr. Yusuf Primary Care Provider [phone] Miguel COLEMAN, Dr. Yusuf Referring Provider [phone] Raffy HAM SAWYER-C, Bernarda Attending Provider [phone] Raffy HAM SAWYER-C, Bernarda Referring Provider [phone] Miguel COLEMAN, Dr. Yusuf Attending Provider King ART, Dr. Rhoades Attending Provider King ART, Dr. Rhoades Referring Provider Gavino CORDOVA, Dr. Lai Pappas Attending Provider Gavino CORDOVA, Dr. Lai Pappas Referring Provider Miguel COLEMAN, Dr. Yusuf Primary Care Provider Miguel COLEMAN, Dr. Yusuf Referring Provider [phone] Raffy HAM SAWYER-C, Bernarda Attending Provider [phone] Miguel COLEMAN, Dr. Yusuf Primary Care Provider Miguel COLEMAN, Dr. Yusuf Referring Provider Raffy HAM SAWYER-C, Bernarda Attending Provider [phone] Miguel, Madelin Primary Care Unavailable Raffy, Bernarda Attending Unavailable Miguel, Madelin Referring Unavailable Migule, Madelin Primary Care Unavailable Raffy, Bernarda Attending Unavailable Miguel, Madelin Referring Unavailable Miguel, Madelin Primary Care Unavailable Raffy, Bernarda Attending Unavailable Sibilia, Lai Attending Unavailable Sibilia, Lai Referring Unavailable Miguel, Madelin Primary Care Unavailable Sibilia, Lai Attending Unavailable Sibilia, Lai Referring Unavailable Miguel, Madelin Primary Care Unavailable Miguel, Madelin Primary Care Unavailable Raffy, Bernarda Attending Unavailable Raffy, Bernarda Referring Unavailable Miguel, Madelin Primary Care Unavailable Raffy, Bernarda Attending Unavailable Raffy, Bernarda Referring Unavailable Miguel, Madelin Primary Care Unavailable Miguel, Madelin Attending Unavailable Miguel, Madelin Referring Unavailable Miguel, Madelin Primary Care Unavailable Jf Perla Referring Unavailable Jf Perla Attending Unavailable Raffy, Bernarda Attending Unavailable Miguel, Madelin Referring Unavailable Miguel, Madelin Primary Care Unavailable Bernarda Akbar Attending Unavailable Madelin Alberto Primary Care Unavailable Madelin Alberto Referring Unavailable Allergies Allergy Classification Reported Allergen(s) Allergy Type Date of Onset Reaction(s) Facility Angiotensin 2 Receptor Blockers (ARB) (8 sources) Losartan; Translations: [Losartan Potassium *ANTIHYPERTENSIV ES*] Drug Allergy [facility] Work Phone: Comment on above: rash/lip swelling Angiotensin Converting Enzyme (PRO) Inhibitors (8 sources) Lisinopril; Translations: [Lisinopril *ANTIHYPERTENSIV ES*] Drug Allergy [facility]; [facility] Work Phone: Comment on above: rash/lip swelling glimepiride (8 sources) glimepiride; Translations: [Amaryl *ANTIDIABETICS*] Drug Allergy [facility]; [facility] Work Phone: Comment on above: rash (20 sources) glimepiride; Translations: [Amaryl *ANTIDIABETICS*] Drug Allergy 2 rash [facility] Work Phone: Comment on above: rash (20 sources) Lisinopril; Translations: [Lisinopril *ANTIHYPERTENSIV ES*] Drug Allergy 2 rash [facility] Work Phone: Comment on above: rash/lip swelling (20 sources) Losartan; Translations: [Losartan Potassium *ANTIHYPERTENSIV ES*] Drug Allergy 2 rash [facility] Work Phone: Comment on above: rash/lip swelling (18 sources) pioglitazone; Translations: [Actos *ANTIDIABETICS*] Drug Allergy [facility]; [facility] Work Phone: (1 source) glimepiride Drug Allergy 5 [facility] (1 source) Lisinopril Drug Allergy 5 [facility] (1 source) Losartan Drug Allergy 5 [facility] NEGATED: Highlighted row has been ruled out! (1 source) Allergy to drug (finding) 0 [facility]; [facility] Work Phone: NEGATED: Highlighted row has been ruled out! (1 source) Allergy to drug (finding) 0 [facility]; [facility] Work Phone: NEGATED: Highlighted row has been ruled out! (1 source) Allergy to drug (finding) 0 [facility]; [facility] Work Phone: NEGATED: Highlighted row has been ruled out! (1 source) Allergy to drug (finding) 0 [facility]; [facility] Work Phone: NEGATED: Highlighted row has been ruled out! (1 source) Allergy to drug (finding) 0 [facility]; [facility] Work Phone: NEGATED: Highlighted row has been ruled out! (1 source) Allergy to drug (finding) 0 [facility]; [facility] Work Phone: NEGATED: Highlighted row has been ruled out! (1 source) Allergy to drug (finding) 0 [facility]; [facility] Work Phone: NEGATED: Highlighted row has been ruled out! (1 source) Allergy to drug (finding) 0 [facility]; [facility] Work Phone: NEGATED: Highlighted row has been ruled out! (1 source) Allergy to drug (finding) 0 [facility]; [facility] Work Phone: NEGATED: Highlighted row has been ruled out! (1 source) Allergy to drug (finding) 0 [facility]; [facility] Work Phone: NEGATED: Highlighted row has been ruled out! (1 source) Allergy to drug (finding) 0 [facility]; [facility] Work Phone: NEGATED: Highlighted row has been ruled out! (1 source) Allergy to drug (finding) 0 [facility]; [facility] Work Phone: NEGATED: Highlighted row has been ruled out! (1 source) Allergy to drug (finding) 0 [facility]; [facility] Work Phone: NEGATED: Highlighted row has been ruled out! (1 source) Allergy to drug (finding) 0 [facility]; [facility] Work Phone: NEGATED: Highlighted row has been ruled out! (1 source) Allergy to drug (finding) 0 [facility]; [facility] Work Phone: NEGATED: Highlighted row has been ruled out! (1 source) Allergy to drug (finding) 0 [facility]; [facility] Work Phone: NEGATED: Highlighted row has been ruled out! (1 source) Allergy to drug (finding) 0 [facility]; [facility] Work Phone: NEGATED: Highlighted row has been ruled out! (1 source) Allergy to drug (finding) 0 [facility]; [facility] Work Phone: Medications Current Medications Medication Drug Class(es) Dates Sig (Normalized) Sig (Original) Blood-Glucose Meter,Continuous (Freestyle Angeline 3 [place]) misc (2 sources) Start: 03-12-2024 Blood-Glucose Meter,Continuous (Freestyle Angeline 3 [place]) misc Active 0 .Route 1 March 12, 2024 12:00am As directed Blood-Glucose Sensor (Freestyle Angeline 3 Sensor) device (5 sources) Start: 03-12-2024 Blood-Glucose Sensor (Freestyle Angeline 3 Sensor) device Active 0 .Route 2 March 12, 2024 12:00am Diabetes mellitus Type 2 diabetes mellitus with hyperglycemia 1 sensor q 14 days Start: 03-12-2024 Blood-Glucose Sensor (Freestyle Angeline 3 Sensor) device Active 0 .Route 2 March 12, 2024 12:00am 1 sensor q 14 days Blood-Glucose,[place]quette Operator,Cont (Freestyle Angeline 3 [place]) misc (3 sources) Start: 03-12-2024 Blood-Glucose,[place] Operator,Cont (Freestyle Angeline 3 [place]) misc Active 0 .Route 1 0 March 12, 2024 12:00am Diabetes mellitus Type 2 diabetes mellitus with hyperglycemia As directed Start: 03-12-2024 Blood-Glucose, [place] Operator,Cont (Freestyle Angeline 3 [place]) misc Active 0 .Route 1 March 12, 2024 12:00am As directed cholecalciferol 0.125 mg oral capsule (13 sources) Vitamin D Start: 02-14-2021 take 1 capsule by mouth once daily Cholecalciferol (Vitamin D3) 125 mcg (5,000 unit) capsule Active 125 ug PO DAILY February 14, 2021 12:00am Check with primary doctor Dupilumab (1 source) Start: 06-14-2025 Dupilumab (Dup ixent Syringe) 100 mg/0.67 mL syringe Active 200 mg SC every 2 weeks June 14, 2025 12:00am Fluticasone Propion-Salmeterol (10 sources) Start: 08-08-2023 Fluticasone Propion-Salmeterol 232-14 mcg/actuation aero powdr breath act w/sensor Active 1 NMA INHALATION TWICE A DAY August 08, 2023 1:00am Start: 08-08-2023 Fluticasone Pr opion-Salmeterol Active 1 INH INHALATION TWICE A DAY August 08, 2023 12:00am insulin isophane, human 70 unt/ml / insulin, regular, human 30 unt/ml injectable suspension (11 sources) Insulin Start: 03-18-2023 Insulin Nph An d Regular Human (Novolin 70/30 U-100 Insulin) 100 unit/mL (70-30) suspension Active 15 U SC TWICE A DAY 10 March 18, 2023 12:00am Diabetes mellitus Type 2 diabetes mellitus with hyperglycemia predniSONE 10 mg oral tablet (20 sources) Corticosteroid Start: 11-09-2024 Prednisone 10 mg tablet Active mg PO November 09, 2024 1:00am Start: 08-20-2018 End: 01-28-2019 Start: 08-20-2018 End: 01-28-2019 PredniSONE 10 MG Oral Tablet 3 (three) Tablet pills for 3 dasy 2 pills for 3 days 1 pill for 3 days with food ahmet for 0 days Quantity: 18 {Tablet} Refills: 0 Ordered: 28-Jan-2019 Kiki Cain RN Start : 20-Aug-2018 End : 28-Jan-2019 Inactive Comments: take with food ahmet Start: 03-26-2018 End: 04-30-2018 PredniSONE 10 MG Oral Tablet 3 (three) Tablet pills for 3 dasy 2 pills for 3 days 1 pill for 3 days with food ahmet for 0 days Quantity: 18 {Tablet} Refills: 0 Ordered: 30-Apr-2018 Kiki Cain MADDIE Start : 26-Mar-2018 End : 30-Apr-2018 Inactive Comments: take with food ahmet Start: 01-09-2018 End: 01-13-2018 Comment on above: take with food ahmet rosuvastatin calcium 10 mg oral tablet (20 sources) HMG-CoA Reductase Inhibitor Start: take 1 tablet by mouth at bedtime Rosuvastatin 10 mg tablet Active 10 mg PO AT BEDTIME February 14, 2021 12:00am Check with primary doctor Start: 09-07-2020 take 1 tablet by chiara th once daily at bedtime Rosuvastatin Calcium 10 MG Oral Tablet 1 (one) Tablet qhs for 0 days Quantity: 30 {Tablet} Refills: 3 Ordered: 07-Sep-2020 Madelin Alberto DO, DO, Kathleen Start : 07-Sep-2020 Active Start: 04-28-2020 take 1 tablet by chiara th once daily at bedtime Rosuvastatin Calcium 10 MG Oral Tablet 1 (one) Tablet qhs for 0 days Quantity: 30 {Tablet} Refills: 3 Ordered: 28-Apr-2020 Tracy Kapadia CMA Start : 28-Apr-2020 Active Semaglutide (Ozempic) 2 mg/d ose (8 mg/3 mL) pen injector (5 sources) Start: 07-06-2024 Semaglutide (O zempic) 2 mg/dose (8 mg/3 mL) pen injector Active 2 mg SC EVERY WEEK 3 July 06, 2024 12:00am Diabetes mellitus Type 2 diabetes mellitus with hyperglycemia Start: 07-06-2024 Semaglutide (O zempic) 2 mg/dose (8 mg/3 mL) pen injector Active 2 mg SC EVERY WEEK July 06, 2024 12:00am 100 ml zoledronic acid 0.05 mg/ml injection (11 sources) Bisphosphonate Start: 11-14-2023 End: 11-11-2024 Zoledronic Gsnu-Duhmyjvv-Eqifx 5 mg/100 mL piggyback Active 0 .ROUTE .COMPLEX 100 0 November 11, 2024 12:36pm Osteoporosis Age-related osteoporosis without current pathological fracture 5 mg/100 mL; infuse over 20 minutes Completed/Discontinued Medications Medication Drug Class(es) Dates Sig (Normalized) Sig (Original) albuterol 0.83 mg/ml inhalation solution (20 sources) beta2-Adrenergic Agonist Start: 08-20-2018 End: 01-21-2020 Start: 08-20-2018 End: 04-28-2020 Start: 08-20-2018 End: 01-21-2020 Albuterol Sulfate (2.5 MG/3M L) 0.083% Inhalation Nebulization Solution 1 (one) Milliliter Milliliter q 6hr prn for 0 days Quantity: 1 {Box} Refills: 0 Ordered: 21-Jan-2020 DeniseTracy dey CMA Start : 20-Aug-2018 End : 21-Jan-2020 Inactive Start: 08-20-2018 End: 04-28-2020 take 2 puff(s) by inhalation three times daily as needed ProAir HFA 108 (90 Base) MCG/ACT Inhalation Aerosol Solution 2 (two) Puff Puff tid prn for 0 days Quantity: 1 {Inhalation} Refills: 0 Ordered: 28-Apr-2020 Deniseyissel ERNANDEZ Tracy Start : 20-Aug-2018 End : 28-Apr-2020 Inactive Start: 08-20-2018 End: 04-28-2020 take 2 puff(s) by inhalation three times daily as needed ProAir HFA 108 (90 Base) MCG/ACT Inhalation Aerosol Solution 2 (two) Puff Puff tid prn for 0 days Quantity: 1 {Inhalation} Refills: 0 Ordered: 28-Apr-2020 Deniseyissel ERNANDEZ Tracy Start : 20-Aug-2018 End : 28-Apr-2020 Inactive Start: 09-20-2017 End: 11-05-2017 Albuterol Sulfate (2.5 MG/3M L) 0.083% Inhalation Nebulization Solution 1 (one) Milliliter Milliliter q 6hr prn for 0 days Quantity: 1 {Box} Refills: 0 Ordered: 05-Nov-2017 Hiwot Lowe Start : 20-Sep-2017 End : 05-Nov-2017 Discontinued Start: 11-30-2009 End: 08-31-2011 Start: 11-30-2009 End: 08-31-2011 Start: 11-30-2009 End: 08-31-2011 VENTOLIN HFA, 108 (90 Base)M CG/ACT (Inhalation Aerosol Solution) 2 (two) Aerosol Soln q 6 hr prn for 0 days Quantity: 1 {Aerosol_Soln} Refills: 0 Ordered: 31-Aug-2011 Kiki Cain RN Start : 30-Nov-2009 End : 31-Aug-2011 Inactive Start: 11-30-2009 End: 08-31-2011 VENTOLIN HFA, 108 (90 Base)M CG/ACT (Inhalation Aerosol Solution) 2 (two) Aerosol Soln q 6 hr prn for 0 days Quantity: 1 {Aerosol_Soln} Refills: 0 Ordered: 31-Aug-2011 Kiki Cain RN Start : 30-Nov-2009 End : 31-Aug-2011 Inactive amLODIPine 5 mg oral tablet (20 sources) Dihydropyridine Calcium Channel Erika Start: 03-13-2023 Start: 09-18-2022 Start: 07-25-2022 Start: 02-22-2022 End: 02-23-2023 take 1 tablet by mouth once daily Amlodipine 10 mg tablet Active 10 mg PO DAILY February 23, 2023 12:11pm Check with primary doctor Start: 10-24-2021 take 2 tablets by [facility] once daily amLODIPine Besylate 5 MG Oral Tablet 2 (two) Tablet qd for 60 days Quantity: 60 {Tablet} Refills: 3 Ordered: 24-Oct-2021 Madelin Albetro DO, DO, Kathleen Start : 24-Oct-2021 Active Start: 03-20-2021 take 2 tablets by [facility] once daily amLODIPine Besylate 5 MG Oral Tablet 2 (two) Tablet qd for 60 days Quantity: 60 {Tablet} Refills: 3 Ordered: 20-Mar-2021 Krissy Ambrosio LPN Start : 20-Mar-2021 Active Start: 12-12-2020 End: 02-22-2022 take 1 tablet by mouth once daily Amlodipine 5 mg tablet Discontinued 5 mg PO DAILY February 14, 2021 12:00am February 22, 2022 2:58pm Start: 11-06-2019 take 1 tablet by [facility] once daily amLODIPine Besylate 5 MG Oral Tablet 1 (one) Tablet qd for 60 days Quantity: 60 {Tablet} Refills: 3 Ordered: 06-Nov-2019 Madelin Alberto DO, DO Madelin Start : 06-Nov-2019 Active Comments: put on file pt will call for refill Start: 01-28-2019 take 1 tablet by chiara th once daily AmLODIPine Besylate 5 MG Oral Tablet 1 (one) Tablet qd for 0 days Quantity: 30 {Tablet} Refills: 3 Ordered: 28-Jan-2019 Miguel COLEMAN Madelin Alberto DO Madelin Start : 28-Jan-2019 Active Comments: put on file pt will call for refill Start: 12-08-2018 take 1 tablet by chiara th once daily AmLODIPine Besylate 5 MG Oral Tablet 1 (one) Tablet Tablet qd for 0 days Quantity: 30 {Tablet} Refills: 3 Ordered: 08-Dec-2018 Madelin Alberto DO, DO Madelin Start : 08-Dec-2018 Active Start: 07-02-2018 take 1 tablet by chiara th once daily AmLODIPine Besylate 5 MG Oral Tablet 1 (one) Tablet Tablet qd for 0 days Quantity: 30 {Tablet} Refills: 3 Ordered: 02-Jul-2018 Kiki Cain LPN Start : 02-Jul-2018 Active Comment on above: put on file pt will call for refill amoxicillin 500 mg oral tabl et (20 sources) Penicillin-class Antibacterial End: 08-31-2011 amoxicillin 875 mg / clavulanate 125 mg oral tablet (20 sources) Penicillin-class Antibacterial Start: 04-22-2017 End: 07-31-2017 Start: 04-22-2017 End: 07-31-2017 take 1 tablet by mouth twice daily Augmentin 875-125 MG Oral Tablet 1 (one) Tablet bid for 0 days Quantity: 20 {Tablet} Refills: 0 Ordered: 31-Jul-2017 Kiki Cain RN Start : 22-Apr-2017 End : 31-Jul-2017 Inactive azithromycin 500 mg oral tablet (20 sources) Macrolide Antimicrobial Start: 02-26-2023 End: 03-18-2023 take 1 tablet by mouth once daily Azithromycin 500 mg tablet Discontinued 500 mg PO DAILY 3 3 0 February 26, 2023 12:00am March 18, 2023 1:53pm Start: 08-24-2020 End: 03-20-2021 Start: 08-20-2018 End: 01-28-2019 Zithromax Z-Parag 250 MG Oral Tablet 1 (one) Tablet TAD for 0 days Quantity: 1 {Package} Refills: 0 Ordered: 28-Jan-2019 Kiki Cain RN Start : 20-Aug-2018 End : 28-Jan-2019 Inactive Start: 07-31-2017 End: 08-07-2017 Zithromax Z-Parag 250 MG Oral Tablet 1 (one) Tablet TAD for 0 days Quantity: 1 {Package} Refills: 0 Ordered: 07-Aug-2017 Kiki Cain ATTENUATOR Start : 31-Jul-2017 End : 07-Aug-2017 Inactive beclomethasone dipropionate 0.08 mg/actuat metered dose nasal spray (20 sources) Corticosteroid Start: 06-30-2012 End: 07-14-2012 Start: 06-30-2012 End: 07-14-2012 QNASL, 80MCG/ACT (Nasal Aero colt Solution) 2 (two) Aerosol Soln qd for 14 days Quantity: 1 {Aerosol_Soln} Refills: 0 Ordered: 06-Aug-2012 Madelin Alberto DO, DO, Kathleen Start : 30-Jun-2012 End : 14-Jul-2012 Inactive calcium chloride 0.0014 meq/ml / potassium chloride 0.004 meq/ml / sodium chloride 0.103 meq/ml / sodium lactate 0.028 meq/ml injectable solution (20 sources) Start: 08-19-2007 End: 12-16-2007 cefdinir 300 mg oral capsule (12 sources) Cephalosporin Antibacterial Start: 02-26-2023 End: 03-18-2023 take 1 capsule by mouth twice daily Cefdinir 300 mg capsule Discontinued 300 mg PO TWICE A DAY 10 February 26, 2023 12:00am March 18, 2023 1:53pm chlorhexidine gluconate 1.2 mg/ml mouthwash (20 sources) Start: 04-06-2013 End: 01-27-2014 Start: 04-06-2013 End: 01-27-2014 CHLORHEXIDINE GLUCONATE, 0.1 2% (Mouth/Throat Solution) 15 Milliliter rinse 30 sec bid for 0 days Refills: 0 Ordered: 27-Jan-2014 Kiki Cain RN Start : 06-Apr-2013 End : 27-Jan-2014 Inactive clobetasol propionate 0.0005 mg/mg topical ointment (20 sources) Corticosteroid codeine phosphate 2 mg/ml / guaiFENesin 20 mg/ml oral solution (20 sources) Opioid Agonist Start: 09-20-2017 End: 11-05-2017 Start: 09-20-2017 End: 11-05-2017 take 4 mL by mouth once daily at bedtime as needed for cough Cheratussin AC 100-10 MG/5ML Oral Solution 4 Milliliter qhs prn cough for 0 days Quantity: 150 {Milliliter} Refills: 0 Ordered: 05-Nov-2017 Hiwot Lowe Start : 20-Sep-2017 End : 05-Nov-2017 Discontinued dapagliflozin 5 mg oral tabl et (20 sources) Sodium-Glucose Cotransporter 2 Inhibitor Start: 07-02-2018 End: 01-28-2019 Deplin (19 sources) Start: 11-23-2009 End: 12-23-2009 Start: 11-23-2009 End: 12-23-2009 take 1 tablet by mouth once daily DEPLIN, 15MG (Oral Tablet) 1 (one) Tablet daily for 30 days Refills: 0 Ordered: 05-Apr-2010 Ana WALKER Monica Start : 23-Nov-2009 End : 23-Dec-2009 Inactive DEPLIN, 15MG (Oral Tablet) (20 sources) Start: 11-23-2009 End: 12-23-2009 take 1 tablet by mouth once daily DEPLIN, 15MG (Oral Tablet) 1 (one) Tablet daily for 30 days Refills: 0 Ordered: 05-Apr-2010 Ana WALKER Monica Start : 23-Nov-2009 End : 23-Dec-2009 Inactive 24 hr desvenlafaxine succinate 100 mg extended release oral tablet (20 sources) Serotonin and Norepinephrine Reuptake Inhibitor Start: 06-30-2012 End: 06-30-2012 Start: 06-30-2012 End: 06-30-2012 take 1 tablet by mouth once daily PRISTIQ, 100MG (Oral Tablet Extended Release 24 Hour) 1 Tablet ER 24HR qd for 0 days Quantity: 30 {Tablet_ER_24HR} Refills: 5 Ordered: 30-Jun-2012 Madelin Alberto DO, DO, Kathleen Start : 30-Jun-2012 End : 30-Jun-2012 Discontinued 12 hr dextromethorphan polistirex 6 mg/ml extended release suspension (20 sources) Uncompetitive I-zurykg-W-aspartate Receptor Antagonist, Sigma-1 Agonist Start: 08-20-2018 End: 01-28-2019 Start: 08-20-2018 End: 01-28-2019 take 1 mL by mouth every twelve hours Delsym 30 MG/5ML Oral Suspension Extended Release 1 (one) Milliliter q12hr for 0 days Quantity: 120 {Milliliter} Refills: 0 Ordered: 28-Jan-2019 Kiki Cain RN Start : 20-Aug-2018 End : 28-Jan-2019 Inactive diphenhydrAMINE hydrochlorid e 25 mg oral capsule (20 sources) Histamine-1 Receptor Antagonist Start: 05-19-2008 End: 02-14-2009 Start: 05-19-2008 End: 02-14-2009 take 1 capsule by mouth once at bedtime BENADRYL, 25MG (Oral Capsule) Capsule q hs for itching for 0 days Refills: 0 Ordered: 19-May-2008 Kiki Cain RN Start : 19-May-2008 End : 14-Feb-2009 Inactive ergocalciferol 1.25 mg oral capsule (20 sources) Provitamin D2 Compound Start: 11-30-2009 End: 02-28-2010 Start: 11-30-2009 End: 02-28-2010 take 1 tablet by mouth every week, then take 1 tablet by mouth every week COLIN [id number] (Oral Capsule) tad Capsule uad for 90 days Refills: 0 Ordered: 05-Apr-2010 Tatiana Perez CNP Start : 30-Nov-2009 End : 28-Feb-2010 Inactive Comments: 1 tab 2 x week for 4 weeks then 1 tab weekly for 8 weeks Comment on above: 1 tab 2 x week for 4 weeks then 1 tab weekly for 8 weeks ertugliflozin 15 mg oral tab let (20 sources) Start: 05-06-2019 End: 01-21-2020 estradiol 0.1 mg/ml vaginal cream (18 sources) Estrogen Start: 01-10-2022 End: 07-25-2022 estrogens, conjugated (intermediate) 0.625 mg/ml vaginal cream (18 sources) Estrogen Start: 01-08-2022 End: 07-25-2022 fluconazole 150 mg oral tabl et (18 sources) Azole Antifungal Start: 01-08-2022 End: 07-25-2022 glimepiride 2 mg oral tablet (20 sources) Sulfonylurea Start: 02-02-2019 End: 05-06-2019 Start: 03-21-2018 End: 03-21-2018 take 1 tablet by mouth twice daily Amaryl 2 MG Oral Tablet 1 (one) Tablet bid for 0 days Quantity: 60 {Tablet} Refills: 3 Ordered: 21-Mar-2018 Madelin Alberto DO, DO, Kathleen Start : 21-Mar-2018 End : 21-Mar-2018 Discontinued Comment on above: rash homatropine methylbromide 0. 3 mg/ml / HYDROcodone bitartrate 1 mg/ml oral solution (20 sources) Opioid Agonist, Cholinergic Muscarinic Agonist Start: 11-30-2009 Start: 11-30-2009 Start: 11-30-2009 HYCODAN, 5-1.5 MG/5ML (Oral Syrup) 1 (one) Syrup q 6 hr prn for 0 days Quantity: 90 {Milliliter} Refills: 0 Ordered: 14-Jun-2010 Kiki Cain RN Start : 30-Nov-2009 Inactive Comments: vanesa Start: 11-30-2009 take 1 mL by mouth e very six hours as needed HYCODAN, 5-1.5MG/5ML (Oral Syrup) 1 (one) Syrup q 6 hr prn for 0 days Quantity: 90 {Milliliter} Refills: 0 Ordered: 14-Jun-2010 Kiki Cain ATTENUATOR Start : 30-Nov-2009 Inactive Comments: vanesa Comment on above: vanesa hydroCHLOROthiazide 12.5 mg oral tablet (20 sources) Thiazide Diuretic Start: 2021 End: 2023 take 1 tablet by mouth once daily Hydrochlorothiazide 12.5 mg tablet Discontinued 12.5 mg PO DAILY February 23, 2023 12:11pm March 12, 2024 1:50pm Check with primary doctor insulin aspart, human 100 unt/ml injectable solution (11 sources) Insulin Analog Start: 2022 End: 2022 Insulin Aspart U-100 (Novolog U-100 Insulin Aspart) 100 unit/mL solution Discontinued 17 U SC TWICE A DAY March 18, 2023 12:00am March 18, 2023 3:14pm 17 units in the morning 14 units in the evening insulin isophane, human 100 unt/ml injectable suspension (17 sources) levoFLOXacin 500 mg oral tablet (20 sources) Quinolone Antimicrobial Start: 2006 End: 2007 lisinopril 10 mg oral tablet (20 sources) Angiotensin Converting Enzyme Inhibitor Start: 2017 End: 2017 Comment on above: see if causing rash losartan potassium 25 mg oral tablet (20 sources) Angiotensin 2 Receptor Erika Start: 2017 End: 2017 meclizine hydrochloride 25 mg oral tablet (20 sources) Antiemetic Start: 2020 End: 2021 Start: 03-02-2021 End: 09-27-2022 take 1 tablet by mouth four times daily as needed for dizziness Meclizine 25 MG tablet Discontinued 25 mg PO 4 TIMES DAILY NEEDED as needed for Dizziness 20 March 02, 2021 12:00am September 27, 2022 3:20pm Start: 11-05-2017 End: 03-05-2018 take 1 tablet by mouth three times daily as needed Meclizine HCl 25 MG Oral Tablet 1 (one) Tablet TID prn for 0 days Quantity: 30 {Tablet} Refills: 0 Ordered: 05-Mar-2018 Kiki Cain RN Start : 05-Nov-2017 End : 05-Mar-2018 Inactive meloxicam 15 mg oral tablet (20 sources) Nonsteroidal Anti-inflammatory Drug Start: 04-30-2018 End: 07-02-2018 metaxalone 800 mg oral table t (20 sources) Muscle Relaxant Start: 04-30-2018 End: 07-02-2018 metFORMIN hydrochloride 500 mg oral tablet (20 sources) Biguanide Start: 03-20-2021 Start: 03-20-2021 take 4 tablets by mo [facility] once daily metFORMIN HCl ER (OSM) 500 MG Oral Tablet Extended Release 24 Hour 4 Tablet qd for 0 days Quantity: 240 {Tablet} Refills: 3 Ordered: 20-Mar-2021 Krissy Ambrosio LPN Start : 20-Mar-2021 Active Start: 02-14-2021 End: 12-09-2024 take 2 tablets by mouth twice daily Metformin 500 mg tablet Discontinued 1000 mg PO TWICE A DAY 360 August 28, 2021 10:27am February 22, 2022 2:38pm Start: 02-14-2021 End: 03-18-2023 take 1000 mg by mouth twice daily Metformin Discontinued 1000 MG PO TWICE A DAY 360 August 28, 2021 9:27am February 22, 2022 1:38pm Start: 04-28-2020 take 4 tablets by [facility] once daily metFORMIN HCl ER (OSM) 500 MG Oral Tablet Extended Release 24 Hour 4 Tablet qd for 0 days Quantity: 240 {Tablet} Refills: 3 Ordered: 28-Apr-2020 Tracy Kapadia CMA Start : 28-Apr-2020 Active Start: 01-28-2019 take 4 tablets by mo ut once daily MetFORMIN HCl ER (OSM) 500 MG Oral Tablet Extended Release 24 Hour 4 Tablet qd for 0 days Quantity: 120 {Tablet} Refills: 3 Ordered: 28-Jan-2019 Madelin Alberto DO, DO, Kathleen Start : 28-Jan-2019 Active Start: 07-02-2018 take 4 tablets by [facility] once daily MetFORMIN HCl ER (OSM) 500 MG Oral Tablet Extended Release 24 Hour 4 Tablet qd for 0 days Quantity: 120 {Tablet} Refills: 3 Ordered: 02-Jul-2018 Kiki Cain LPN Start : 02-Jul-2018 Active mometasone furoate 0.05 mg/a ctuat metered dose nasal spray (20 sources) Corticosteroid Start: 12-16-2007 End: 02-14-2009 Start: 12-16-2007 End: 02-14-2009 NASONEX, 50MCG/ACT (Nasal Kim spension) 2 (two) Suspension Daily for 0 days Quantity: 1 {Suspension} Refills: 1 Ordered: 16-Dec-2007 Kiki Cain RN Start : 16-Dec-2007 End : 14-Feb-2009 Inactive moxifloxacin 400 mg oral tablet (20 sources) Quinolone Antimicrobial Start: 11-30-2009 oseltamivir 75 mg oral capsule (20 sources) Neuraminidase Inhibitor Start: 09-20-2017 End: 09-25-2017 pen needle, diabetic (15 sources) Start: 03-20-2021 End: 01-08-2022 penicillin v potassium 250 mg oral tablet (20 sources) Start: 12-01-2012 End: 12-11-2012 pioglitazone 30 mg oral tablet (20 sources) Peroxisome Proliferator Receptor alpha Agonist, Peroxisome Proliferator Receptor gamma Agonist, Thiazolidinedione Start: 06-27-2021 End: 02-22-2022 take 1 tablet by mouth once daily Pioglitazone 30 mg tablet Discontinued 30 mg PO DAILY 90 August 28, 2021 10:28am February 22, 2022 2:38pm 0.25 mg, 0.5 mg dose 1.5 ml semaglutide 1.34 mg/ml pen injector (20 sources) Start: 03-20-2021 End: 01-08-2022 Start: 01-28-2019 End: 02-02-2019 inject 0.25 mg by subcutaneous injection every week, then inject 0.5 mg by subcutaneous injection every week Ozempic 0.25 or 0.5 MG/DOSE Subcutaneous Solution Pen-injector 0.25 Milligram qweek for 0 days Quantity: 1 {Cartridge} Refills: 2 Ordered: 02-Feb-2019 Madelin Alberto DO, DO, Kathleen Start : 28-Jan-2019 End : 02-Feb-2019 Discontinued Comments: 0.25mg qweek for 4weeks then increase 0.5 mg qweek Comment on above: 0.25mg qweek for 4we eks then increase 0.5 mg qweek Semaglutide (10 sources) Start: 08-08-2023 End: 11-27-2023 Semaglutide (Ozempic) 0.25 mg or 0.5 mg (2 mg/3 mL) pen injector Discontinued 0.5 mg SC EVERY WEEK 3 August 08, 2023 1:00am November 27, 2023 9:03am Diabetes mellitus Type 2 diabetes mellitus without complications Start: 08-08-2023 End: 11-27-2023 Semaglutide (Ozempic) 0.25 m g or 0.5 mg (2 mg/3 mL) pen injector Discontinued 0.5 mg SC EVERY WEEK August 08, 2023 1:00am November 27, 2023 9:03am Start: 08-08-2023 End: 11-27-2023 Semaglutide (Ozempic) 0.25 m g or 0.5 mg (2 mg/3 mL) pen injector Discontinued 0.5 MG SC EVERY WEEK August 08, 2023 12:00am November 27, 2023 8:03am Start: 08-08-2023 Semaglutide (O zempic) 0.25 mg or 0.5 mg (2 mg/3 mL) pen injector Active 0.5 MG SC EVERY WEEK 3 August 08, 2023 12:00am Semaglutide (11 sources) Start: 04-30-2024 End: 07-06-2024 Semaglutide (Ozempic) 1 mg/d ose (4 mg/3 mL) pen injector Discontinued 1 mg SC EVERY WEEK 3 April 30, 2024 2:30pm July 06, 2024 1:51pm Diabetes mellitus Type 2 diabetes mellitus with hyperglycemia Start: 04-30-2024 End: 07-06-2024 Semaglutide (Ozempic) 1 mg/d ose (4 mg/3 mL) pen injector Discontinued 1 mg SC EVERY WEEK 3 April 30, 2024 2:30pm July 06, 2024 1:51pm Start: 11-27-2023 End: 04-30-2024 Semaglutide (Ozempic) 1 mg/d ose (4 mg/3 mL) pen injector Discontinued 1 mg SC EVERY WEEK 3 November 27, 2023 1:00am April 30, 2024 2:30pm Diabetes mellitus Type 2 diabetes mellitus with hyperglycemia Start: 11-27-2023 End: 04-30-2024 Semaglutide (Ozempic) 1 mg/d ose (4 mg/3 mL) pen injector Discontinued 1 mg SC EVERY WEEK 3 November 27, 2023 1:00am April 30, 2024 2:30pm Start: 11-27-2023 Semaglutide (O zempic) 1 mg/dose (4 mg/3 mL) pen injector Active 1 MG SC EVERY WEEK 3 November 27, 2023 12:00am simvastatin 10 mg oral table t (20 sources) HMG-CoA Reductase Inhibitor Start: 03-05-2018 End: 03-26-2018 SITagliptin 100 mg oral tabl et (20 sources) Dipeptidyl Peptidase 4 Inhibitor Start: 12-02-2017 End: 12-12-2017 Tennis Elbow Brace (16 sources) Start: 02-19-2007 End: 12-16-2007 Start: 02-19-2007 End: 12-16-2007 TENNIS ELBOW BRACE (Miscella neous) Misc for 0 days Refills: 0 Ordered: 19-Feb-2007 Kiki Cain LPN Start : 19-Feb-2007 End : 16-Dec-2007 Inactive TENNIS ELBOW BRACE (Miscellaneous) (20 sources) Start: 02-19-2007 End: 12-16-2007 TENNIS ELBOW BRACE (Miscellaneous) Misc for 0 days Refills: 0 Ordered: 19-Feb-2007 Kiki Cain RN Start : 19-Feb-2007 End : 16-Dec-2007 Inactive Start: 02-19-2007 End: 12-16-2007 TENNIS ELBOW BRACE (Miscella neous) Misc for 0 days Refills: 0 Ordered: 19-Feb-2007 Kiki Cain LPN Start : 19-Feb-2007 End : 16-Dec-2007 Inactive levothyroxine sodium 0.05 mg oral tablet (20 sources) l-Thyroxine Start: 03-13-2023 Start: 07-25-2022 Start: 01-08-2022 Start: 03-20-2021 take 1 tablet by [facility] once daily Synthroid 50 MCG Oral Tablet 1 (one) Tablet qd empty stomach for 60 days Quantity: 60 {Tablet} Refills: 3 Ordered: 20-Mar-2021 Krissy Ambrosio LPN Start : 20-Mar-2021 Active Start: 02-14-2021 take 1 capsule by mo ut once daily Levothyroxine 50 mcg capsule Active 50 ug PO DAILY February 14, 2021 12:00am Check with primary doctor Start: 12-23-2020 take 1 tablet by [facility] once daily Synthroid 50 MCG Oral Tablet 1 (one) Tablet qd empty stomach for 60 days Quantity: 60 {Tablet} Refills: 3 Ordered: 23-Dec-2020 Miguel DOMadelin DO, Kathleen Start : 23-Dec-2020 Active Start: 04-28-2020 take 1 tablet by [facility] once daily Synthroid 50 MCG Oral Tablet 1 (one) Tablet qd empty stomach for 60 days Quantity: 60 {Tablet} Refills: 3 Ordered: 28-Apr-2020 Tracy Kapadia CMA Start : 28-Apr-2020 Active Comments: put on file pt will call for refill Start: 01-28-2019 take 1 tablet by [facility] once daily Synthroid 50 MCG Oral Tablet 1 (one) Tablet qd empty stomach for 0 days Quantity: 90 {Tablet} Refills: 3 Ordered: 28-Jan-2019 Madelin Alberto DO, DO, Kathleen Start : 28-Jan-2019 Active Comments: put on file pt will call for refill Start: 11-10-2018 take 1 tablet by [facility] once daily Synthroid 50 MCG Oral Tablet 1 (one) Tablet qd empty stomach for 0 days Quantity: 90 {Tablet} Refills: 3 Ordered: 10-Nov-2018 Madelin Alberto DO, DO, Kathleen Start : 10-Nov-2018 Active Start: 07-02-2018 take 1 tablet by [facility] once daily Synthroid 50 MCG Oral Tablet 1 (one) Tablet Tablet qd empty stomach for 0 days Quantity: 30 {Tablet} Refills: 3 Ordered: 02-Jul-2018 Kiki Cain LPN Start : 02-Jul-2018 Active Comment on above: put on file pt will call for refill triamcinolone acetonide 5 mg /ml topical cream (20 sources) Corticosteroid Start: 05-19-2008 End: 02-14-2009 Start: 05-19-2008 End: 02-14-2009 KENALOG, 0.5% (External Crea m) apply to affected areas Cream bid for 0 days Quantity: 60 {Cream} Refills: 0 Ordered: 14-Feb-2009 Kiki Cain RN Start : 19-May-2008 End : 14-Feb-2009 Inactive Start: 05-19-2008 End: 02-14-2009 KENALOG, 0.5% (External Crea m) apply to affected areas Cream bid for 0 days Quantity: 60 {Cream} Refills: 0 Ordered: 14-Feb-2009 Kiki Cain LPN Start : 19-May-2008 End : 14-Feb-2009 Inactive 24 hr venlafaxine 75 mg extended release oral capsule (20 sources) Serotonin and Norepinephrine Reuptake Inhibitor Start: 05-16-2023 Start: 02-05-2023 Start: 07-25-2022 Start: 06-06-2022 Start: 10-02-2021 take 1 capsule by mo [facility] once daily Effexor XR 75 MG Oral Capsule Extended Release 24 Hour 1 Capsule ER 24HR qd for 30 days Quantity: 30 {Capsule} Refills: 3 Ordered: 02-Oct-2021 Madelin Alberto DO, DO, Kathleen Start : 02-Oct-2021 Active Start: 03-20-2021 take 1 capsule by mo [facility] once daily Effexor XR 75 MG Oral Capsule Extended Release 24 Hour 1 Capsule ER 24HR qd for 30 days Quantity: 30 {Capsule} Refills: 3 Ordered: 20-Mar-2021 Krissy Ambrosio LPN Start : 20-Mar-2021 Active Start: 02-14-2021 take 1 tablet by [facility] once daily Venlafaxine 75 mg tablet Active 75 mg PO DAILY February 14, 2021 12:00am Check with primary doctor Start: 01-31-2021 take 1 capsule by [facility] once daily Effexor XR 75 MG Oral Capsule Extended Release 24 Hour 1 Capsule ER 24HR qd for 30 days Quantity: 30 {Capsule} Refills: 3 Ordered: 31-Jan-2021 Madelin Alberto DO, DO, Kathleen Start : 31-Jan-2021 Active Start: 04-28-2020 take 1 capsule by [facility] once daily Effexor XR 75 MG Oral Capsule Extended Release 24 Hour 1 Capsule ER 24HR qd for 60 days Quantity: 60 {Capsule} Refills: 3 Ordered: 28-Apr-2020 Tracy Kapadia CMA Start : 28-Apr-2020 Active Start: 01-28-2019 take 1 capsule by [facility] once daily Effexor XR 75 MG Oral Capsule Extended Release 24 Hour 1 Capsule ER 24HR qd for 30 days Quantity: 30 {Capsule} Refills: 5 Ordered: 28-Jan-2019 Madelin Alberto DO, DO, Kathleen Start : 28-Jan-2019 Active Start: 07-02-2018 take 1 capsule by mo [facility] once daily Effexor XR 75 MG Oral Capsule Extended Release 24 Hour 1 Capsule ER 24HR qd for 30 days Quantity: 30 {Capsule} Refills: 5 Ordered: 02-Jul-2018 Kiki Cain LPN Start : 02-Jul-2018 Active Start: 02-14-2009 End: 02-14-2009 Start: 02-14-2009 End: 02-14-2009 EFFEXOR, 75MG (Oral Tablet) 1 tab Tablet BID for 0 days Quantity: 60 {Tablet} Refills: 3 Ordered: 14-Feb-2009 Madelin Alberto DO, DO, Kathleen Start : 14-Feb-2009 End : 14-Feb-2009 Discontinued NEGATED: Highlighted row has not occurred!drug or medication (16 sources) No Known Histori ciara Medications NEGATED: Highlighted row has not occurred!No Known Historical Medications (10 sources) No Known Histori ciara Medications Problems Active Problems Problem Classification Problem Date Documented Date Episodic/Chronic Abdominal pain (20 sources) Abdominal pain, unspecified site; Translations: [Abdominal pain] Resolved: 4 08-17-2015 Episodic Comment on above: periumbilical pain w ith movementno fever or chills, no vomiting was raking leaves and shopping Acute and chronic tonsillitis (20 sources) Amygdalolith; Translations: [Tonsil stone] 02-12-2020 Chronic Comment on above: use water pick to re move Acute bronchitis (20 sources) Acute bronchitis; Translations: [Bronchitis, acute] 02-12-2020 Episodic Administrative/social admission (20 sources) Medical examinations/reports status; Translations: [Counseling procedure with explicit context] Resolved: 8 12-02-2017 Episodic Anxiety disorders (20 sources) Anxiety; Translations: [Anxiety] 07-02-2018 Chronic Comment on above: wax and wane - overa ll stable Asthma (14 sources) Asthma; Translations: [Unspecified asthma, uncomplicated] Onset: 5 02-14-2021 Chronic Cataract (13 sources) Bilateral cataracts; Translations: [Unspecified cataract] 02-14-2021 Chronic Chronic obstructive pulmonary disease and bronchiectasis (20 sources) Bronchitis; Translations: [Bronchitis] Resolved: 7 12-02-2017 Episodic Comment on above: completed course of zpack Conditions associated with dizziness or vertigo (20 sources) Benign paroxysmal positional vertigo; Translations: [Dizziness] 07-02-2018 Episodic Comment on above: she declined shazia macias referral currently will see if rx helps first Conditions associated with dizziness or vertigo (20 sources) Conditions associated with dizziness or vertigo Diabetes mellitus with complications (20 sources) Type II diabetes mellitus uncontrolled; Translations: [Diabetes mellitus without mention of complication, type II or unspecified type, uncontrolled] Onset: 5 07-02-2018 Chronic Comment on above: on metformin- januvi a too $$ - all- rx too costly pt is self pay -- will look at samplesAC improved so will cont dietary and exercise to refrain from adding cost per patient on metformin- januvi a too $$ and will rx and try ozempic Diabetes mellitus with complications (20 sources) Diabetes mellitus with complications Diabetes mellitus without complication (20 sources) Type 2 diabetes mellitus without complication; Translations: [Diabetes mellitus] 04-28-2020 Chronic Comment on above: on metformin- januvi a too $$ - all- rx too costly pt is self pay -- will look at samplesAC improved so will cont dietary and exercise to refrain from adding cost per patient on metformin- januvi a too $$ - all- rx too costly pt is self pay -- will look at samples Diabetes mellitus without complication (20 sources) Diabetes mellitus without complication Disorders of lipid metabolism (20 sources) Hypercholesterolemia; Translations: [Hypercholesteremia] 07-02-2018 Chronic Comment on above: uncontrolled uncontrolled-- ddint tolerate simvastatin Disorders of teeth and jaw (20 sources) Gingivitis; Translations: [Gingivitis] 07-02-2018 Chronic Comment on above: total care Essential hypertension (20 sources) Hypertensive disorder; Translations: [Hypertension] 07-02-2018 Chronic External Injury - Adverse effects of medical drugs (20 sources) Adverse reaction to drug; Translations: [Drug reaction, initial encounter] Resolved: 8 07-02-2018 Episodic Fluid and electrolyte disorders (20 sources) Dehydration; Translations: [Dehydration] Resolved: 9 09-08-2015 Episodic Genitourinary symptoms and ill-defined conditions (20 sources) Microalbuminuria; Translations: [Microalbuminuria] 07-02-2018 Episodic Comment on above: rash reaction to pro ?-- will try arb rash reaction to pro ?-- will try arb-- then got lip swellig Heart valve disorders (20 sources) Heart murmur; Translations: [Cardiac murmur, unspecified] Episodic Immunizations and screening for infectious disease (20 sources) Contact with and (suspected) exposure to other viral communicable diseases; Translations: [Exposure to the flu] Resolved: 8 07-02-2018 Episodic Comment on above: has flu, brooke l treat as if Menopausal disorders (20 sources) Atrophy of vagina; Translations: [Vaginal atrophy] 01-08-2022 Chronic Mood disorders (20 sources) Depressive disorder; Translations: [Depressive disorder] 07-02-2018 Chronic Comment on above: stable thru stressor s per pt Nutritional deficiencies (20 sources) Vitamin D deficiency, unspecified; Translations: [Vitamin D deficiency] Onset: 5 07-02-2018 Chronic Comment on above: hanst taken supplemt n-- forgets ? cost keep tkaing D3- its improved Nutritional deficiencies (13 sources) Vitamin deficiency; Translations: [Vitamin deficiency, unspecified] 02-14-2021 Episodic Osteoporosis (14 sources) Osteoporosis; Translations: [Age-related osteoporosis without current pathological fracture] Onset: 5 11-14-2023 Chronic Other aftercare (20 sources) Patient encounter status; Translations: [Therapeutic drug monitoring] 08-24-2020 Episodic Other circulatory disease (20 sources) Other specified symptoms and signs involving the circulatory and respiratory systems; Translations: [Abnormal chest sounds] Onset: 0 11-05-2017 Episodic Other circulatory disease (20 sources) Pulmonary congestion ; Translations: [Chest congestion] Resolved: 8 12-02-2017 Episodic Other connective tissue disease (20 sources) Lateral epicondylitis; Translations: [Tennis elbow] Resolved: 9 09-09-2015 Episodic Comment on above: decrease repition of movement- use left hand--nsaid fof 10-14 days Other ear and sense organ disorders (20 sources) Impacted cerumen; Translations: [Cerumen impaction] Resolved: 4 07-05-2015 Episodic Other female genital disorders (20 sources) Pruritus of vagina; Translations: [Other specified noninflammatory disorders of vagina] 01-08-2022 Episodic Other female genital disorders (1 source) Other specified noninflammatory disorders of vagina; Translations: [Pruritus of genital organs] Episodic Other inflammatory condition of skin (20 sources) Lichen planus; Translations: [Lichen Planus] 07-25-2022 Episodic Other lower respiratory disease (20 sources) Wheezing; Translations: [Wheeze] Resolved: 8 12-02-2017 Episodic Other lower respiratory disease (20 sources) Cough; Translations: [Cough] Resolved: 2 01-27-2014 Episodic Other lower respiratory disease (20 sources) Hypoxia; Translations: [Hypoxia] 03-13-2023 Episodic Other lower respiratory disease (1 source) Hypoxemia; Translations: [Hypoxemia] Onset: Episodic Other nutritional; endocrine; and metabolic disorders (20 sources) Body mass index 25-29 - overweight; Translations: [BMI 28.0-28.9,adult] Resolved: 8 12-02-2017 Chronic Other nutritional; endocrine; and metabolic disorders (20 sources) Body mass index 30+ - obesity; Translations: [BMI 30.0-30.9,adult] Resolved: 3 12-02-2017 Chronic Other nutritional; endocrine; and metabolic disorders (16 sources) Obese class I; Translations: [Obesity, unspecified] 02-23-2023 Chronic Other nutritional; endocrine; and metabolic disorders (11 sources) Obesity, unspecified; Translations: [Obesity, unspecified] Chronic Other nutritional; endocrine; and metabolic disorders (20 sources) Body mass index 25-29 - overweight; Translations: [BMI 28.0-28.9,adult] Resolved: 8 08-24-2020 Episodic Other nutritional; endocrine; and metabolic disorders (20 sources) Overweight in adulthood with body mass index of 25 or more but less than 30; Translations: [BMI 28.0-28.9,adult] Resolved: 8 01-08-2022 Episodic Other skin disorders (20 sources) Eruption; Translations: [Rash] Resolved: 8 07-02-2018 Episodic Comment on above: pathology pending Other upper respiratory disease (20 sources) Pain in throat Episodic Other upper respiratory disease (12 sources) Acute bronchospasm; Translations: [Acute bronchospasm] 02-23-2023 Episodic Other upper respiratory disease (2 sources) Acute bronchospasm; Translations: [Acute bronchospasm] 02-26-2023 Episodic Other upper respiratory infections (20 sources) Chronic sinusitis, unspecified; Translations: [Bacterial sinusitis] Resolved: 7 12-02-2017 Chronic Other upper respiratory infections (20 sources) Acute pharyngitis; Translations: [Sore throat symptom] Resolved: 9 07-05-2015 Episodic Peripheral and visceral atherosclerosis (20 sources) Peripheral vascular disease; Translations: [PVD (peripheral vascular disease)] 05-12-2021 Chronic Pneumonia (20 sources) Bacterial pneumonia; Translations: [Unspecified bacterial pneumonia] Resolved: 9 08-16-2015 Episodic Residual codes; unclassified (20 sources) Family history of malignant neoplasm of gastrointestinal tract; Translations: [Family history of malignant neoplasm of gastrointestinal tract] 02-12-2020 Episodic Residual codes; unclassified (15 sources) H/O: section; Translations: [ Section] 04-28-2020 Episodic Comment on above: 1993 Residual codes; unclassified (20 sources) FH: Diabetes mellitus; Translations: [Family history of diabetes mellitus] 02-12-2020 Episodic Residual codes; unclassified (20 sources) Influenza-like symptoms; Translations: [Flu-like symptoms] 02-12-2020 Episodic Residual codes; unclassified (15 sources) History of appendectomy; Translations: [Appendectomy] 04-28-2020 Episodic Comment on above: 1996 or 1997 Residual codes; unclassified (20 sources) Non-smoker; Translations: [Nonsmoker] 08-24-2020 Episodic Residual codes; unclassified (20 sources) Influenza vaccination declined; Translations: [Influenza vaccination declined (Renamed from Refused influenza vaccine)] Resolved: 8 12-02-2017 Episodic Residual codes; unclassified (20 sources) Postmenopausal state; Translations: [Postmenopausal (Renamed from Postmenopausal status)] 05-12-2021 Episodic Respiratory failure; insufficiency; arrest (adult) (14 sources) Acute respiratory failure; Translations: [Acute respiratory failure with hypoxia] 02-23-2023 Episodic Spondylosis; intervertebral disc disorders; other back problems (20 sources) Low back pain; Translations: [Low back pain, episodic] 07-02-2018 Episodic Comment on above: seems MS - Thyroid disorders (20 sources) Hypothyroidism; Translations: [Adult hypothyroidism] Onset: 4 04-28-2020 Chronic Unclassified (20 sources) Emotional problems; Translations: [Emotional disorder] 07-02-2018 Chronic Unclassified (20 sources) Other specified abnormal findings of blood chemistry; Translations: [Thyroid hormone tests abnormal] Resolved: 8 07-02-2018 Episodic Comment on above: set up with alexandra packer june Unclassified (20 sources) Family history of diabetes mellitus; Translations: [Immunization not carried out because of patient refusal] Resolved: 8 12-02-2017 Episodic Comment on above: 1994 1996 or 1997 Unclassified (20 sources) Hypercholesteremia Unclassified (20 sources) Nonsmoker; Translations: [Non-smoker] 07-02-2018 Unclassified (20 sources) BMI 29.0-29.9,adult Unclassified (20 sources) Emotional disorder Unclassified (20 sources) Influenza vaccination declined (Renamed from Refused influenza vaccine) Unclassified (20 sources) Abnormal lung sounds Unclassified (20 sources) Unclassified (20 sources) Abnormal TSH Unclassified (20 sources) BMI 30.0-30.9,adult Unclassified (20 sources) Sinusitis, bacterial Unclassified (20 sources) Nutritional counseling Unclassified (20 sources) BMI 28.0-28.9,adult Unclassified (20 sources) Hypercholesteremia (272.0) Unclassified (20 sources) Well Woman Exam (V72.31) (Pap,Mammo,Routine Female) (Renamed from Well Woman V72.31 (p,m)) Unclassified (20 sources) Patient encounter status; Translations: [Therapeutic drug monitoring] Resolved: 8 02-12-2020 Unclassified (20 sources) Adult hypothyroidism Unclassified (20 sources) Diabetes mellitus type 2, uncontrolled, without complications Unclassified (8 sources) Encounter for screening for malignant neoplasm of colon (Renamed from Special screening for malignant neoplasms, colon) Past or Other Problems Problem Classification Problem Date Documented Date Episodic/Chronic Acute bronchitis (10 sources) Acute bronchitis Bacterial infection; unspecified site (1 source) Bacterial upper respiratory infection; Translations: [Sinusitis, bacterial] Resolved: 07-31-2017 12-02-2017 Episodic Chronic obstructive pulmonary disease and bronchiectasis (20 sources) Chronic obstructive pulmonary disease and bronchiectasis Influenza (20 sources) Influenza Other lower respiratory disease (16 sources) Pulmonary congestion ; Translations: [Chest congestion] Resolved: 12-02-2017 12-02-2017 Chronic Pneumonia (20 sources) Pneumonia Residual codes; unclassified (15 sources) Increased body mass index; Translations: [BMI 29.0-29.9,adult] Resolved: 09-20-2017 05-06-2019 Episodic Unclassified (20 sources) Unspecified Diagnosis 07-02-2018 Unclassified (20 sources) Flu-like symptoms Unclassified (20 sources) Drug reaction, initial encounter Unclassified (20 sources) Rash Unclassified (20 sources) Drug reaction, subsequent encounter Unclassified (20 sources) CERUMEN IMPACTION (380.4) Unclassified (20 sources) Chest congestion Unclassified (20 sources) Low back pain, episodic Unclassified (1 source) Exposure to the flu Unclassified (20 sources) Abdominal Pain,Unspecified Site (789.00) Unclassified (20 sources) Abnormal Lung Sounds/Rales (786.7) Unclassified (20 sources) Wheeze Unclassified (20 sources) Rash (782.1) Unclassified (20 sources) Pregnancies (); Translations: [Pregnancies ()] 07-02-2018 Comment on above: 4 Unclassified (16 sources) TENNIS ELBOW (726.32) Unclassified (20 sources) VOLUME DEPLETION DISORDER; DEHYDRATION (276.51) Unclassified (20 sources) Abortions/Miscarriage s; Translations: [Abortions/Miscarriag es] 07-02-2018 Comment on above: 1 Unclassified (20 sources) Deliveries (Parity); Translations: [Deliveries (Parity)] 07-02-2018 Comment on above: 3 Unclassified (15 sources) Non-smoker; Translations: [Nonsmoker] 04-28-2020 Unclassified (15 sources) Influenza vaccination declined; Translations: [Influenza vaccination declined (Renamed from Refused influenza vaccine)] Resolved: 12-02-2017 12-02-2017 Unclassified (20 sources) Tonsil stone Unclassified (10 sources) Abortions/Miscarriage s; Translations: [Abortions/Miscarriag es] 08-24-2020 Comment on above: 1 Unclassified (10 sources) Deliveries (Parity); Translations: [Deliveries (Parity)] 08-24-2020 Comment on above: 3 Unclassified (10 sources) Pregnancies (); Translations: [Pregnancies ()] 08-24-2020 Comment on above: 4 Unclassified (2 sources) Annual Medicare Phyiscal WITHOUT abnormal findings (Renamed from Encounter for general adult medical examination without abnormal findings) Unclassified (2 sources) Encounter for screening mammogram for breast cancer (Renamed from Encounter for screening mammogram for malignant neoplasm of breast) Unclassified (2 sources) Postmenopausal (Renamed from Postmenopausal status) Unclassified (2 sources) PVD (peripheral vascular disease) Results Test Name Value Interpretation Reference Range Facility Endocrinology Visit Reporton 06-14-2025 Endocrinology Visit Report [facility] [address] [place] [address] OFFICE VISIT Date of Service: 06/14/25 MR#: [id number] Acct: [id number] Name: ERIN LAWRENCE Rep #: [id number] : 1955 Provider: JOVI cueto Age/Sex: 70/F [place] [facility] [place]: Signed Intake Vital Signs 02/08/25 09:49 02/11/25 09:47 06/14/25 11:24 Height 5 ft 5 in 5 ft 5 in 5 ft 5 in Weight: 173 lb 4 oz BMI 28.8 BP 143/87 H Blood Pressure Location Lt brachial Position Sitting Pulse 79 Pulse Source Monitor Pulse Oximetry (%) 93 Oxygen Delivery Method room air Intake Visit Reasons: 4 M FU, RS 05/10 Chief Complaint: f/u diabetes Is patient in pain?: No Allergies glimepiride (From Amaryl) Allergy (Mild, Verified 06/14/25 11:29) rash lisinopril Allergy (Mild, Verified 06/14/25 11:29) rash losartan Allergy (Mild, Verified 06/14/25 11:29) rash Medications ???Medication ???Instructions ???Recorded ???Confirmed ???Type cholecalciferol (vitamin D3) 125 125 mcg PO DAILY Check with 06/14/25 History mcg (5,000 unit) capsule primary doctor levothyroxine 50 mcg capsule 50 mcg PO DAILY Check with primary 02/14/21 06/14/25 History doctor rosuvastatin 10 mg tablet 10 mg PO QHS Check with primary 06/14/25 History doctor venlafaxine 75 mg tablet 75 mg PO DAILY Check with primary 02/14/21 06/14/25 History doctor amlodipine 10 mg tablet 10 mg PO DAILY Check with primary 02/23/23 06/14/25 History doctor insulin human U-100 NPH-regulr 15 unit (0.15 mL) subcut BID #10 m L 03/18/23 06/14/25 Rx 70-30 mix 100 unit/mL subcutaneous susp (Novolin 70/30 U-100 Insulin) fluticasone 232mcg-salmeterol 1 inh inhalation BID 08/08/2305/31 History 14mcg/actuation breath act,powder sensor 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 sensor (FreeStyle #2 ea 03/12/24 06/14/25 Rx Angeline 3 Sensor device) 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,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 ,cont #1 ea 03/12/24 06/14/25 Rx (FreeStyle Angeline 3 [place]) insulin syringe-needle U-100 0.3 #100 ea 07/02/24 06/14/25 Rx mL 31 gauge x 5/16 (BD Insulin Syringe Ultra-Fine) semaglutide 2 mg/dose (8 mg/3 mL) 2 mg (0.75 mL) subcut QWEEK #3 mL 07/06/24 06/14/25 Rx subcutaneous pen injector (Ozempic) prednisone 10 mg tablet mg PO 11/09/24 06/14/25 History zoledronic acid 5 mg/100 mL in See Rx Instructions .Route 5 06/14/25 Rx mannitol 5 %-water intravenous .COMPLEX #100 mL piggybck metformin 500 mg tablet 1,000 mg (2 x 500 mg) PO BID #360 12/09/24 06/14/25 Rx tabs pen needle, diabetic 32 gauge x #100 ea 05/21/25 06/14/25 Rx dupilumab 100 mg/0.67 mL 200 mg subcut Q2W 06/14/25 5 History subcutaneous syringe (Dupixent) Have you fallen in the past year?: No PFSH Medical History Obesity (BMI 30.0-34.9) Overweight (BMI 25.0-29.9) Mixed hyperlipidemia Benign hypertension Vitamin deficiency High triglycerides High cholesterol Diabetes Cataracts, bilateral Asthma Surgical History Hx of appendectomy Family History Sister Arthritis Colon cancer, Onset Age: 54 Mother Colon cancer, Onset Age: 71 Diabetes Myocardial infarction, Onset Age: 71 Aunt Uterine cancer Social History household members: none Smoking Status: Never smoker alcohol intake: never substance use type: does not use HPI HPI Chief Complaint: f/u diabetes Details: ERIN LAWRENCE, is a 70 F who presents to the office today for evaluation and management of diabetes. A1C today is 7.3%, improved from 02/08/25 GMI at 7.4%. She has lost 7 lbs since that time. Currently taking 70/30 18 u breakfast, 20 u supper, metformin 1 gm BID with food, and Ozempic 2 mg qweek- tolerating well. She admits that she will frequently taking insulin and skip breakfast, this typically results in a low blood sugar. CGM downloaded and reviewed- she is having lows in the morning when she skips breakfast, she is having post meal elevations most significantly with supper. She denies any significant episode of hypoglycemia that has required assistance from others. She is hypothyroid and taking levothyroxine 50 mcg once daily. BP stable. Currently taking amlodipine 10 mg once daily. She takes a daily statin. She received her 2nd Reclast infusion January of this year. Reports consistency with vitamin D3 5,000 iu once daily. Labs are up to date. Denies any acute concerns. ROS Const Constitutional: Positive for fatigue; No weight change ENT ENT: No dizziness/vertigo Cardio Cardiology: No chest pain at r (more content not included)... Normal [facility] Chest without Contraston Chest without Contrast [facility] [address] [place], [place] [address] Chest without Contrast MR#: [id number] Acct: [id number] Name: ERIN LAWRENCE Rep #: [id number] : 1955 F 70 From: Alberto luna MD PCP: Dr. Madelin Alberto, DO Status: REG CLI Study: Chest without Contrast Date of Exam: 03/22/25 Exam# [id number] Ordering Dr: Lai Mancia MD PROCEDURE: CHEST WITHOUT CONTRAST 03/22/2025 REASON FOR EXAM: HYPOXEMIA Shortness of breath/cough. TECHNIQUE: Chest CT without contrast. Coronal and Sagittal reconstruction series were provided. One or more dose reduction techniques were used (e.g., Automated exposure control, adjustment of the mA and/or kV according to patient size, use of iterative reconstruction technique RADIATION DOSE SUMMARY: CTDlvol: 10.63 mGy DLP: 356.07 mGycm COMPARISON: None FINDINGS: Hardware: None Lymph nodes: Small fat containing bilateral axillary lymph nodes. Small benign-appearing mediastinal lymph nodes. No hilar lymph nodes. Heart and Vasculature: The heart is nonenlarged. Coronary Artery Calcifications: Present Lungs and Airways: There is evidence of atelectasis and volume loss in the medial aspect of the right middle lobe. No suspicious pulmonary nodules are seen. Pleura: No evidence of pleural effusion. Upper Abdomen: Unremarkable. Bones: Degenerative changes of the thoracic spine. CT/Chest without Contrast IMPRESSION: Coronary artery calcification (CAC) is is present Atelectasis and volume loss in the anterior medial aspect of the right middle lobe. Reading Location: [id number] CC: Dr. Madelin Alberto DO; Dr. 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, [address] Absolute lymphocyte countOrd ered By: Lai Mancia on 03-02-2025 Lymphocytes Auto (Unsp spec) [#/Vol] 2.42 10*3/uL 0.83-4.51 [facility] Absolute neutrophil countOrd ered By: Lai Mancia on 03-02-2025 Neutrophils (Bld) [#/Vol] 7.9 10*3/uL High 2.0-7.7 [facility] Automated lymphocyte count a s percentage of total leukocytesOrdered By: Lai Mancia on 03-02-2025 Lymphocytes/100 WBC Auto (Unsp spec) 21.0 % 19-41 [facility] Basophil percentageOrdered B y: Lai Mancia on 03-02-2025 Basophils/100 WBC (Bld) 0.8 % 0-1 [facility] CBC W/Diff, Automatedon Absolute Lymph 2.42 X10 3/uL Normal 0.83-4.51 [facility] Comment on above: Performed By: #### L 100.0100 #### [facility] [address] [place], [address] Absolute Neut 7.9 X10 3/uL High 2.0-7.7 [facility] Comment on above: Performed By: #### L 100.0100 #### [facility] [address] [place], [address] Basophils/100 WBC (Bld) 0.8 % Normal 0-1 [facility] Comment on above: Performed By: #### L 100.0100 #### [facility] [address] [place], [address] Eosinophils/100 WBC (Bld) 2.0 % Normal 0-5 [facility] Comment on above: Performed By: #### L 100.0100 #### [facility] [address] [place], [address] Erythrocyte distribution width (RBC) [Ratio] 13.2 % Normal 11.6-14.6 [facility] Comment on above: Performed By: #### L 100.0100 #### [facility] [address] [place], [address] Hematocrit (Bld) [Volume fraction] 42.5 % Normal 37-47 [facility] Comment on above: Performed By: #### L 100.0100 #### [facility] [address] [place], [address] Hemoglobin (Bld) [Mass/Vol] 13.8 g/dL Normal 12.0-15.0 [facility] Comment on above: Performed By: #### L 100.0100 #### [facility] [address] [place], [address] IG% 1.500 High 0.0-0.9 [facility] Comment on above: Result Comment: IG% - Immature Granulocytes (promyelocytes, myelocytes and metamyelocytes) > 1% indicates that a LEFT SHIFT is Present. Performed By: #### L 100.0100 #### [facility] [address] [place], [address] Lymphocytes/100 WBC (Bld) 21.0 % Normal 19-41 [facility] Comment on above: Performed By: #### L 100.0100 #### [facility] [address] [place], [address] MCH (RBC) [Entitic mass] 29.9 pg Normal 27.0-32.0 [facility] Comment on above: Performed By: #### L 100.0100 #### [facility] [address] [place], [address] MCHC (RBC) [Mass/Vol] 32.5 g/dL Normal 32-36 [facility] Comment on above: Performed By: #### L 100.0100 #### [facility] [address] [place], [address] MCV (RBC) [Entitic vol] 92.0 fL Normal 81-99 [facility] Comment on above: Performed By: #### L 100.0100 #### [facility] [address] [place], [address] Monocytes/100 WBC (Bld) 6.4 % Normal 0-10 [facility] Comment on above: Performed By: #### L 100.0100 #### [facility] [address] [place], [address] Neutrophils/100 WBC (Bld) 68.3 % Normal 47-70 [facility] Comment on above: Performed By: #### L 100.0100 #### [facility] [address] [place], [address] Nucleated RBC (Bld) [#/Vol] 0 10*3/uL Normal 0-5 [facility] Comment on above: Performed By: #### L 100.0100 #### [facility] [address] [place], [address] Platelet mean volume (Bld) [Entitic vol] 10.3 fL Normal 6.2-12.0 [facility] Comment on above: Performed By: #### L 100.0100 #### [facility] [address] [place], [address] Platelets (Bld) [#/Vol] 313 10*3/uL Normal 150-450 [facility] Comment on above: Performed By: #### L 100.0100 #### [facility] [address] [place], [address] RBC (Bld) [#/Vol] 4.62 10*6/uL Normal 4.2-5.4 [facility] Comment on above: Performed By: #### L 100.0100 #### [facility] [address] [place], [address] RDW SD 44.5 fl High 35.1-43.9 [facility] Comment on above: Performed By: #### L 100.0100 #### [facility] [address] [place], [address] WBC (Bld) [#/Vol] 11.5 10*3/uL High 4.4-11.0 [facility] Comment on above: Performed By: #### L 100.0100 #### [facility] [address] [place], [address] Eosinophil percentageOrdered By: Lai Mancia on 03-02-2025 Eosinophils/100 WBC (Bld) 2.0 % 0-5 [facility] Erythrocyte distribution wid th ratioOrdered By: Norridgewock Gavino on 03-02-2025 Erythrocyte distribution width (RBC) [Ratio] 13.2 % 11.6-14.6 [facility] Erythrocyte distribution wid th standard deviationOrdered By: Norridgewock Gavino on 03-02-2025 Erythrocyte distribution width (RBC) [Ratio] 44.5 fl High 35.1-43.9 [facility] Hematocrit Auto (Bld) [Volum e fraction]Ordered By: Lai Gavino on 03-02-2025 Hematocrit (Bld) [Volume fraction] 42.5 % 37-47 [facility] Hemoglobin measurementOrdere d By: Lai Mancia on 03-02-2025 Hemoglobin (Bld) [Mass/Vol] 13.8 g/dL 12.0-15.0 [facility] Immature granulocytes/100 WB C Auto (Bld)Ordered By: Lai Mancia on 03-02-2025 Immature granulocytes/100 WBC (Bld) 1.500 % High 0.0-0.9 [facility] Comment on above: IG% - Immature Granu locytes (promyelocytes, myelocytes and metamyelocytes) > 1% indicates that a LEFT SHIFT is Present. MCV (mean corpuscular volume ) determinationOrdered By: Lai Mancia on 03-02-2025 MCV (RBC) [Entitic vol] 92.0 fL 81-99 [facility] Mean corpuscular hemoglobin (MCH) determinationOrdered By: Lai Mancia on 03-02-2025 MCH (RBC) [Entitic mass] 29.9 pg 27.0-32.0 [facility] Mean corpuscular hemoglobin concentration (MCHC) determinationOrdered By: Lai Mancia on 03-02-2025 MCHC (RBC) [Mass/Vol] 32.5 g/dL 32-36 [facility] Mean platelet volume determi nationOrdered By: Lai Mancia on 03-02-2025 Platelet mean volume (Bld) [Entitic vol] 10.3 fL 6.2-12.0 [facility] Monocyte percentageOrdered B y: Lai Mancia on 03-02-2025 Monocytes/100 WBC (Bld) 6.4 % 0-10 [facility] Neutrophil percentageOrdered By: Lai Macnia on 03-02-2025 Neutrophils/100 WBC (Bld) 68.3 % 47-70 [facility] Nucleated red blood cell per centageOrdered By: Lai Mancia on 03-02-2025 Nucleated RBC/100 WBC (Bld) [Ratio] 0 % 0-5 [facility] Platelet countOrdered By: Antionette Mancia on 03-02-2025 Platelets (Bld) [#/Vol] 313 10*3/uL 150-450 [facility] RBC Auto (Bld) [#/Vol]Ordere d By: Lai Mancia on 03-02-2025 RBC (Bld) [#/Vol] 4.62 10*6/uL 4.2-5.4 [facility] White blood cell (WBC) count Ordered By: Lai Mancia on 03-02-2025 WBC (Bld) [#/Vol] 11.5 10*3/uL High 4.4-11.0 [facility] Endocrinology Visit Reporton 02-08-2025 Endocrinology Visit Report [facility] [address] [place] [address]. [address] [place] [address] OFFICE VISIT Date of Service: 02/08/25 MR#: [id number] Acct: [id number] Name: ERIN LAWRENCE Rep #: [id number] : 1955 Provider: JOVI cueto Age/Sex: 70/F [place] [facility] [place]: Signed Intake Vital Signs 11/09/24 09:35 02/08/25 09:49 Height 5 ft 5 in 5 ft 5 in Weight: 181 lb 180 lb BMI 30.1 29.9 BP 169/89 H 155/83 H Blood Pressure Location Rt brachial Lt brachial Position Sitting Sitting Pulse 73 81 Pulse Source Monitor Monitor Pulse Oximetry (%) 95 93 Oxygen Delivery Method room air room air Intake Visit Reasons: 3 M FU Chief Complaint: f/u diabetes Allergies glimepiride (From Amaryl) Allergy (Mild, Verified 02/08/25 09:51) rash lisinopril Allergy (Mild, Verified 02/08/25 09:51) rash losartan Allergy (Mild, Verified 02/08/25 09:51) rash Medications ???Medication ???Instructions ???Recorded ???Confirmed ???Type cholecalciferol (vitamin D3) 125 125 mcg PO DAILY Check with 02/08/25 History mcg (5,000 unit) capsule primary doctor levothyroxine 50 mcg capsule 50 mcg PO DAILY Check with primary 02/14/21 02/08/25 History doctor rosuvastatin 10 mg tablet 10 mg PO QHS Check with primary 02/08/25 History doctor venlafaxine 75 mg tablet 75 mg PO DAILY Check with primary 02/14/21 02/08/25 History doctor amlodipine 10 mg tablet 10 mg PO DAILY Check with primary 02/23/23 02/08/25 History doctor insulin human U-100 NPH-regulr 15 unit (0.15 mL) subcut BID #10 m L 03/18/23 02/08/25 Rx 70-30 mix 100 unit/mL subcutaneous susp (Novolin 70/30 U-100 Insulin) fluticasone 232mcg-salmeterol 1 inh inhalation BID 08/08/2301/28 History 14mcg/actuation breath act,powder sensor 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 meter,continuous #1 ea 03/12/24 02/08/25 Rx (FreeStyle Angeline 3 [place]) 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 sensor (FreeStyle #2 ea 03/12/24 02/08/25 Rx Angeline 3 Sensor device) insulin syringe-needle U-100 0.3 #100 ea 07/02/24 02/08/25 Rx mL 31 gauge x 5/16 (BD Insulin Syringe Ultra-Fine) semaglutide 2 mg/dose (8 mg/3 mL) 2 mg (0.75 mL) subcut QWEEK #3 mL 07/06/24 02/08/25 Rx subcutaneous pen injector (Ozempic) prednisone 10 mg tablet mg PO 11/09/24 02/08/25 History zoledronic acid 5 mg/100 mL in See Rx Instructions .Route 5 02/08/25 Rx mannitol 5 %-water intravenous .COMPLEX #100 mL piggybck metformin 500 mg tablet 1,000 mg (2 x 500 mg) PO BID #360 12/09/24 02/08/25 Rx tabs Have you fallen in the past year?: No PFSH Medical History Obesity (BMI 30.0-34.9) Overweight (BMI 25.0-29.9) Mixed hyperlipidemia Benign hypertension Vitamin deficiency High triglycerides High cholesterol Diabetes Cataracts, bilateral Asthma Surgical History Hx of appendectomy Family History Sister Arthritis Colon cancer, Onset Age: 54 Mother Colon cancer, Onset Age: 71 Diabetes Myocardial infarction, Onset Age: 71 Aunt Uterine cancer Social History household members: none Smoking Status: Never smoker alcohol intake: never substance use type: does not use HPI HPI Chief Complaint: f/u diabetes Details: ERIN LAWRENCE, is a 70 F who presents to the office today for evaluation and management of diabetes, hypothyroid, and osteoporosis. A1C with PCP on 01/22/25 was 8.5%, consistent with 11/09/24 at 8.6%. Weight is stable. Currently taking 70/30 18 u bfast, 20 u supper, metformin 1 gm BID with food, and Ozempic 2 mg qweek. She was without Ozempic for approximately 1 month and resumed at 2 mg, she had nausea/vomiting, and has since decreased dose to 1 mg weekly- reports tolerating well. CGM downloaded and reviewed- GMI is 7.4%. She is having post meal elevations. She admits that she misses insulin with meals if she is not at home when she eats. She will occasionally take insulin post meal. She denies any significant episodes of hypoglycemia that have required assistance from others. BP controlled. Currently amlodipine 10 mg once daily. She is hypothyroid and takes levothyroxine 50 mcg once daily. She takes a daily statin. She has osteoporosis and is getting Reclast infusions, she is overdue for her infusion. 01/22/24 vitamin D 26.2. She admitted that she had missed a couple doses of supplement, at that time she was instructed to increase vitamin D3 to 4,000 iu once daily. Reports strict compliance since increase in dose. Labs are up to date with PCP. Denies any acute concerns. ROS Const Constitution (more content not included)... Normal [facility] L3410.9992on 01-27-2025 [facility]. COMMENT Normal . [facility] Comment on above: Order Comment: SERUM [id number] Result Comment: Test Ordered: [id number] Apolipoprotein B Apolipoprotein B 79 mg/dL Reference Range: <90 Desirable < 90 Borderline High 90 - 99 High 100 - 130 Very High >130 ASCVD RISK THERAPEUTIC TARGET CATEGORY APO B (mg/dL) Very High Risk <80 (if extreme risk <70) High Risk <90 Moderate Risk <90 Performed at: [facility] [address] [id number] Inhalation Therapist: Severiano Kuo MD, Phone: [phone] Performed at: [facility] [address] [id number] Inhalation Therapist: Stu Reyes PhD, Phone: [phone] Performed By: #### L 501.3720, L506.1001, L501.9985, L500.4100, L502.0250, L500.4050, L3400.4600, L100.0100, L3410.9992 ####[facility] [address] [place], [place], [id number] Lipoprotein Aon 01-25-2025 Lipoprotein a [Moles/Vol] 155.1 nmol/L Abnormal <75.0 [facility] Comment on above: Result Comment: Note : Values greater than or equal to 75.0 nmol/L may indicate an independent risk factor for CHD, but must be evaluated with caution when applied to non- populations due to the influence of genetic factors on Lp(a) across ethnicities. Performed at: [facility] [address] [id number] Inhalation Therapist: Stu Reyes PhD, Phone: [phone] Performed By: #### L 501.9520, L506.1001, L501.9985, L500.4100, L502.0250, L500.4050, L3400.4600, L100.0100, L3410.9992 ####[facility] [address] [place], [address] Absolute lymphocyte countOrd ered By: Madelin Alberto on 01-22-2025 Lymphocytes Auto (Unsp spec) [#/Vol] 1.58 10*3/uL 0.83-4.51 [facility] Absolute neutrophil countOrd ered By: Madelin Alberto on 01-22-2025 Neutrophils (Bld) [#/Vol] 4.3 10*3/uL 2.0-7.7 [facility] [facility] Albumin DL <= 20 mg/L (U) [M ass/Vol]Ordered By: Madelin Alberto on 01-22-2025 Urine Random Microalbumin 188.0 mg/L NO RANGE EST. [facility] Anion gap in Serum or Plasma Ordered By: Madelin Alberto on 01-22-2025 Anion gap [Moles/Vol] 11 mmol/L 5-15 [facility] Automated lymphocyte count a s percentage of total leukocytesOrdered By: Madelin Alberto on 01-22-2025 Lymphocytes/100 WBC Auto (Unsp spec) 24.2 % 19-41 [facility] BUN/creatinine ratioOrdered By: Madelin Alberto on 01-22-2025 Urea nitrogen/Creatinine [Mass ratio] 26.3 mg/mg High 10-20 [facility] Basophil percentageOrdered B y: Madelin Alberto on 01-22-2025 Basophils/100 WBC (Bld) 0.3 % 0-1 [facility] Bilirubin, totalOrdered By: Madelin Alberto on 01-22-2025 Bilirubin [Mass/Vol] 0.57 mg/dL 0.00-1.30 [facility] CBC W/Diff, Automatedon 12-30 Absolute Lymph 1.58 X10 3/uL Normal 0.83-4.51 [facility] Comment on above: Performed By: #### L 501.9520, L506.1001, L501.9985, L500.4100, L502.0250, L500.4050, L3400.4600, L100.0100, L3410.9992 #### [facility] [address] [place], [address] Absolute Neut 4.3 X10 3/uL Normal 2.0-7.7 [facility] Comment on above: Performed By: #### L 501.9520, L506.1001, L501.9985, L500.4100, L502.0250, L500.4050, L3400.4600, L100.0100, L3410.9992 #### [facility] [address] [place], [place], [phone] (129 Basophils/100 WBC (Bld) 0.3 % Normal 0-1 [facility] Comment on above: Performed By: #### L 501.9520, L506.1001, L501.9985, L500.4100, L502.0250, L500.4050, L3400.4600, L100.0100, L3410.9992 #### [facility] [address] [place], [address] Eosinophils/100 WBC (Bld) 1.5 % Normal 0-5 [facility] Comment on above: Performed By: #### L 501.9520, L506.1001, L501.9985, L500.4100, L502.0250, L500.4050, L3400.4600, L100.0100, L3410.9992 #### [facility] [address] [place], [place], [phone] Erythrocyte distribution width (RBC) [Ratio] 13.3 % Normal 11.6-14.6 [facility] Comment on above: Performed By: #### L 501.9520, L506.1001, L501.9985, L500.4100, L502.0250, L500.4050, L3400.4600, L100.0100, L3410.9992 #### [facility] [address] [place], [place], [phone] Hematocrit (Bld) [Volume fraction] 42.3 % Normal 37-47 [facility] Comment on above: Performed By: #### L 501.9520, L506.1001, L501.9985, L500.4100, L502.0250, L500.4050, L3400.4600, L100.0100, L3410.9992 #### [facility] [address] [facility] [place], [place], [id number] Hemoglobin (Bld) [Mass/Vol] 14.1 g/dL Normal 12.0-15.0 [facility] Comment on above: Performed By: #### L 501.9520, L506.1001, L501.9985, L500.4100, L502.0250, L500.4050, L3400.4600, L100.0100, L3410.9992 #### [facility] [address] [facility]. [place], [place], [id number] IG% 0.300 Normal 0.0-0.9 [facility] Comment on above: Result Comment: IG% - Immature Granulocytes (promyelocytes, myelocytes and metamyelocytes) > 1% indicates that a LEFT SHIFT is Present. Performed By: #### L 501.9520, L506.1001, L501.9985, L500.4100, L502.0250, L500.4050, L3400.4600, L100.0100, L3410.9992 #### [facility] [address] [place], [address] Lymphocytes/100 WBC (Bld) 24.2 % Normal 19-41 [facility] Comment on above: Performed By: #### L 501.9520, L506.1001, L501.9985, L500.4100, L502.0250, L500.4050, L3400.4600, L100.0100, L3410.9992 #### [facility] [address] [place], [address] MCH (RBC) [Entitic mass] 30.1 pg Normal 27.0-32.0 [facility] Comment on above: Performed By: #### L 501.9520, L506.1001, L501.9985, L500.4100, L502.0250, L500.4050, L3400.4600, L100.0100, L3410.9992 #### [facility] [address] [place], [address] MCHC (RBC) [Mass/Vol] 33.3 g/dL Normal 32-36 [facility] Comment on above: Performed By: #### L 501.9520, L506.1001, L501.9985, L500.4100, L502.0250, L500.4050, L3400.4600, L100.0100, L3410.9992 #### [facility] [address] [place], [address] MCV (RBC) [Entitic vol] 90.4 fL Normal 81-99 [facility] Comment on above: Performed By: #### L 501.9520, L506.1001, L501.9985, L500.4100, L502.0250, L500.4050, L3400.4600, L100.0100, L3410.9992 #### [facility] [address] [place], [address] Monocytes/100 WBC (Bld) 7.1 % Normal 0-10 [facility] Comment on above: Performed By: #### L 501.9520, L506.1001, L501.9985, L500.4100, L502.0250, L500.4050, L3400.4600, L100.0100, L3410.9992 #### [facility] [address] [place], [address] Neutrophils/100 WBC (Bld) 66.6 % Normal 47-70 [facility] Comment on above: Performed By: #### L 501.9520, L506.1001, L501.9985, L500.4100, L502.0250, L500.4050, L3400.4600, L100.0100, L3410.9992 #### [facility] [address] [place], [place], [phone] (673) Nucleated RBC (Bld) [#/Vol] 0 10*3/uL Normal 0-5 [facility] Comment on above: Performed By: #### L 501.9520, L506.1001, L501.9985, L500.4100, L502.0250, L500.4050, L3400.4600, L100.0100, L3410.9992 #### [facility] [address] [place], [address] Platelet mean volume (Bld) [Entitic vol] 11.1 fL Normal 6.2-12.0 [facility] Comment on above: Performed By: #### L 501.9520, L506.1001, L501.9985, L500.4100, L502.0250, L500.4050, L3400.4600, L100.0100, L3410.9992 #### [facility] [address] [place], [address] Platelets (Bld) [#/Vol] 201 10*3/uL Normal 150-450 [facility] Comment on above: Performed By: #### L 501.9520, L506.1001, L501.9985, L500.4100, L502.0250, L500.4050, L3400.4600, L100.0100, L3410.9992 #### [facility] [address] [place], [place], [phone] (824) RBC (Bld) [#/Vol] 4.68 10*6/uL Normal 4.2-5.4 [facility] Comment on above: Performed By: #### L 501.9520, L506.1001, L501.9985, L500.4100, L502.0250, L500.4050, L3400.4600, L100.0100, L3410.9992 #### [facility] [address] [place], [address] RDW SD 43.8 fl Normal 35.1-43.9 [facility] Comment on above: Performed By: #### L 501.9520, L506.1001, L501.9985, L500.4100, L502.0250, L500.4050, L3400.4600, L100.0100, L3410.9992 #### [facility] [address] [place], [place], [id number] WBC (Bld) [#/Vol] 6.5 10*3/uL Normal 4.4-11.0 [facility] Comment on above: Performed By: #### L 501.9520, L506.1001, L501.9985, L500.4100, L502.0250, L500.4050, L3400.4600, L100.0100, L3410.9992 #### [facility] [address] [place], [place], [phone] Calculated very low density lipoprotein (VLDL) cholesterol measurementOrdered By: Madelin Alberto on 01-22-2025 Calculated very low density lipoprotein (VLDL) cholesterol measurement 21 mg/dL 5-40 [facility] VLDL Cholesterol 21 mg/dL -40 [facility] Carbon dioxide, total [Moles /volume] in Central venous bloodOrdered By: Madelin Alberto on 01-22-2025 CO2 [Moles/Vol] 27.0 mmol/L 21.0-32.0 [facility] Chloride assayOrdered By: Stefania mariluangélica Alberto on 01-22-2025 Chloride [Moles/Vol] 104 mmol/L 98-108 [facility] Comprehensive Metabolic Prof ilon 01-22-2025 Albumin [Mass/Vol] 4.1 g/dL Normal 3.4-4.8 [facility] Comment on above: Performed By: #### L 501.9520, L506.1001, L501.9985, L500.4100, L502.0250, L500.4050, L3400.4600, L100.0100, L3410.9992 ####[facility] [address] [place], [place], [id number] Albumin/Globulin [Mass ratio] 1.3 {ratio} Normal 0.9-2.4 [facility] Comment on above: Performed By: #### L 501.9520, L506.1001, L501.9985, L500.4100, L502.0250, L500.4050, L3400.4600, L100.0100, L3410.9992 ####[facility] [address] [place], [place], [id number] ALK PHOS 84 U/L Normal 35-104 [facility] Comment on above: Performed By: #### L 501.9520, L506.1001, L501.9985, L500.4100, L502.0250, L500.4050, L3400.4600, L100.0100, L3410.9992 ####[facility] [address] [place], [address] ALT [Catalytic activity/Vol] 10 U/L Normal <=34 [facility] Comment on above: Performed By: #### L 501.9520, L506.1001, L501.9985, L500.4100, L502.0250, L500.4050, L3400.4600, L100.0100, L3410.9992 ####[facility] [address] [place], [address] AST [Catalytic activity/Vol] 16 U/L Normal <=31 [facility] Comment on above: Performed By: #### L 501.9520, L506.1001, L501.9985, L500.4100, L502.0250, L500.4050, L3400.4600, L100.0100, L3410.9992 ####[facility] [address] [place], [address] Bilirubin [Mass/Vol] 0.57 mg/dL Normal 0.00-1.30 [facility] Comment on above: Performed By: #### L 501.9520, L506.1001, L501.9985, L500.4100, L502.0250, L500.4050, L3400.4600, L100.0100, L3410.9992 ####[facility] [address] [place], [address] BUN/CRE 26.3 RATIO High 10-20 [facility] Comment on above: Performed By: #### L 501.9520, L506.1001, L501.9985, L500.4100, L502.0250, L500.4050, L3400.4600, L100.0100, L3410.9992 ####[facility] [address] [place], [address] Calcium [Mass/Vol] 9.2 mg/dL Normal 7.6-11.0 [facility] Comment on above: Performed By: #### L 501.9520, L506.1001, L501.9985, L500.4100, L502.0250, L500.4050, L3400.4600, L100.0100, L3410.9992 ####[facility] [address] [place], [place], [id number] Chloride [Moles/Vol] 104 mmol/L Normal 98-108 [facility] Comment on above: Performed By: #### L 501.9520, L506.1001, L501.9985, L500.4100, L502.0250, L500.4050, L3400.4600, L100.0100, L3410.9992 ####[facility] [address] [place], [place], [id number] CO2 [Moles/Vol] 27.0 mmol/L Normal 21.0-32.0 [facility] Comment on above: Performed By: #### L 501.9520, L506.1001, L501.9985, L500.4100, L502.0250, L500.4050, L3400.4600, L100.0100, L3410.9992 ####[facility] [address] [place], [place], [id number] Creatinine [Mass/Vol] 0.66 mg/dL Low 0.70-1.20 [facility] Comment on above: Performed By: #### L 501.9520, L506.1001, L501.9985, L500.4100, L502.0250, L500.4050, L3400.4600, L100.0100, L3410.9992 ####[facility] [address] [place], [place], [id number] GAP 11 Normal 5-15 [facility] Comment on above: Performed By: #### L 501.9520, L506.1001, L501.9985, L500.4100, L502.0250, L500.4050, L3400.4600, L100.0100, L3410.9992 ####[facility] [address] [place], [address] GFR/1.73 sq M.predicted among non-blacks MDRD (S/P/Bld) [Vol rate/Area] 95 mL/min/{1.73_m2} Normal >60 [facility] Comment on above: Result Comment: mL/m in/1.73m2 CKD-EPI Creatinine Equation (2020) Performed By: #### L 501.9520, L506.1001, L501.9985, L500.4100, L502.0250, L500.4050, L3400.4600, L100.0100, L3410.9992 ####[facility] [address] [place], [address] Globulin (S) [Mass/Vol] 3.1 g/dL Normal 2.2-4.2 [facility] Comment on above: Performed By: #### L 501.9520, L506.1001, L501.9985, L500.4100, L502.0250, L500.4050, L3400.4600, L100.0100, L3410.9992 ####[facility] [address] [place], [address] Glucose [Mass/Vol] 89 mg/dL Normal 70-99 [facility] Comment on above: Performed By: #### L 501.9520, L506.1001, L501.9985, L500.4100, L502.0250, L500.4050, L3400.4600, L100.0100, L3410.9992 ####[facility] [address] [place], [address] Potassium [Moles/Vol] 3.4 mmol/L Normal 3.3-5.1 [facility] Comment on above: Performed By: #### L 501.9520, L506.1001, L501.9985, L500.4100, L502.0250, L500.4050, L3400.4600, L100.0100, L3410.9992 ####[facility] [address] [place], [place], [id number] Sodium [Moles/Vol] 143 mmol/L Normal 133-145 [facility] Comment on above: Performed By: #### L 501.9520, L506.1001, L501.9985, L500.4100, L502.0250, L500.4050, L3400.4600, L100.0100, L3410.9992 ####[facility] [address] [place], [address] T PROT 7.2 g/dL Normal 5.9-8.4 [facility] Comment on above: Performed By: #### L 501.9520, L506.1001, L501.9985, L500.4100, L502.0250, L500.4050, L3400.4600, L100.0100, L3410.9992 ####[facility] [address] [place], [place], [id number] Urea nitrogen [Mass/Vol] 17 mg/dL Normal 4-19 [facility] Comment on above: Performed By: #### L 501.9520, L506.1001, L501.9985, L500.4100, L502.0250, L500.4050, L3400.4600, L100.0100, L3410.9992 ####[facility] [address] [place], [place], [phone] Creatinine Unsp time (U) [Ma ss/Vol]Ordered By: Madelin Alberto on 01-22-2025 Creatinine (U) [Mass/Vol] 221.00 mg/dL High 28.00-217.00 [facility] Eosinophil percentageOrdered By: Madelin Alberto on 01-22-2025 Eosinophils/100 WBC (Bld) 1.5 % 0-5 [facility] Erythrocyte distribution wid th (RBC) [Ratio]Ordered By: Madelin Alberto on 01-22-2025 Erythrocyte distribution width (RBC) [Entitic vol] 43.8 fL 35.1-43.9 [facility] Erythrocyte distribution wid th ratioOrdered By: Madelin Alberto on 01-22-2025 Erythrocyte distribution width (RBC) [Ratio] 13.3 % 11.6-14.6 [facility] Erythrocyte distribution wid th standard deviationOrdered By: Madelin Alberto on 01-22-2025 Erythrocyte distribution width (RBC) [Ratio] 43.8 fl 35.1-43.9 [facility] GFR/1.73 sq M.predicted pamela g non-blacks MDRD (S/P/Bld) [Vol rate/Area]Ordered By: Madelin Alberto on 01-22-2025 Estimated GFR (MDRD) Non-Af Amer 95 >60 [facility] Comment on above: mL/min/1.73m2 CKD-EP I Creatinine Equation (2020) Glomerular filtration rate ( GFR) estimation/1.73 sq m using serum, plasma, or whole bOrdered By: Madelin Alberto on 01-22-2025 GFR/1.73 sq M.predicted among non-blacks MDRD (S/P/Bld) [Vol rate/Area] 95 mL/min/{1.73_m2} >60 [facility] Comment on above: mL/min/1.73m2 CKD-EP I Creatinine Equation (2020) Hematocrit Auto (Bld) [Volum e fraction]Ordered By: Madelin Alberto on 01-22-2025 Hematocrit (Bld) [Volume fraction] 42.3 % 37-47 [facility] Hemoglobin A1con 01-22-2025 HbA1c (Bld) [Mass fraction] 8.5 % High <=5.6 [facility] Comment on above: Result Comment: Norm al < 5.7 % Prediabetic 5.7 - 6.4 % Diabetic >or= 6.5 % Please note range changes. Performed By: #### L 501.9520, L506.1001, L501.9985, L500.4100, L502.0250, L500.4050, L3400.4600, L100.0100, L3410.9992 ####[facility] [address] [place], [place], [id number] Hemoglobin A1c percentageOrd ered By: Madelin Alberto on 01-22-2025 HbA1c (Bld) [Mass fraction] 8.5 % High <5.7 [facility] Comment on above: Normal < 5.7 % Predi abetic 5.7 - 6.4 % Diabetic >or= 6.5 % Please note range changes. Hemoglobin measurementOrdere d By: Madelin Alberto on 01-22-2025 Hemoglobin (Bld) [Mass/Vol] 14.1 g/dL 12.0-15.0 [facility] Immature granulocytes/100 WB C Auto (Bld)Ordered By: Madelin Alberto on 01-22-2025 Immature granulocytes/100 WBC (Bld) 0.300 % 0.0-0.9 [facility] Comment on above: IG% - Immature Granu locytes (promyelocytes, myelocytes and metamyelocytes) > 1% indicates that a LEFT SHIFT is Present. LDL calc ser/plasOrdered By: Madelin Alberto on 01-22-2025 Cholesterol in LDL [Mass/Vol] 83 mg/dL [facility] Comment on above: Tdtsbcyhqq=811-148 m g/dL & Higher Mixl=592 mg/dL or greater LDL Cholesterol, Calculated 83 mg/dL [facility] Comment on above: Wkgpzbiskh=140-526 m g/dL & Higher Rwla=916 mg/dL or greater Laboratory - Chemistry and C hemistry - challengeOrdered By: Madelin Alberto on 01-22-2025 AST [Catalytic activity/Vol] 16 U/L <32 [facility] Lipid Profileon 01-22-2025 CHOL:HDL 3.47 Normal [facility] Comment on above: Performed By: #### L 501.9520, L506.1001, L501.9985, L500.4100, L502.0250, L500.4050, L3400.4600, L100.0100, L3410.9992 ####[facility] [address] [place], [address] Cholesterol [Mass/Vol] 146 mg/dL Normal <=200 [facility] Comment on above: Result Comment: Chol esterol level, Desirable <200 mg/dL Borderline high cholesterol 200-239 mg/dL High cholesterol >=240 mg/dL Recommendations of the NCEP Adult Treatment Panel for the following risk-cutoff thresholds for the [place] population. Performed By: #### L 501.9520, L506.1001, L501.9985, L500.4100, L502.0250, L500.4050, L3400.4600, L100.0100, L3410.9992 ####[facility] [address] [place], [place], [phone](806) Cholesterol in HDL [Mass/Vol] 42 mg/dL Normal [facility] Comment on above: Result Comment: [place]ady[place] onal Cholesterol Education Program (NCEP) guidelines: <40 mg/dL: Low HDL-cholesterol (major risk factor for CHD) >= 60 mg/dL: High HDL-cholesterol (negative risk factor for CHD) HDL-cholesterol is affected by a number of factors, e.g. smoking, exercise, hormones, sex and age. Performed By: #### L 501.9520, L506.1001, L501.9985, L500.4100, L502.0250, L500.4050, L3400.4600, L100.0100, L3410.9992 ####[facility] [address] [place], [place], [phone](269) Cholesterol in LDL [Mass/Vol] 83 mg/dL Normal [facility] Comment on above: Result Comment: Bord okhqtu=495-931 mg/dL Higher Fyzm=237 mg/dL or greater Performed By: #### L 501.9520, L506.1001, L501.9985, L500.4100, L502.0250, L500.4050, L3400.4600, L100.0100, L3410.9992 ####[facility] [address] [place], [place], [phone](158) Cholesterol in VLDL [Mass/Vol] 21 mg/dL Normal 5-40 [facility] Comment on above: Performed By: #### L 501.9520, L506.1001, L501.9985, L500.4100, L502.0250, L500.4050, L3400.4600, L100.0100, L3410.9992 ####[facility] [address] [place], [place], [id number] Triglyceride [Mass/Vol] 104 mg/dL Normal [facility] Comment on above: Result Comment: The drugs N-Acetylcysteine and Metamizole may falsely depress this assay. Normal range: <150 mg/dL Borderline High: 150-199 mg/dL High: 200-499 mg/dL Very High: >500 mg/dL Performed By: #### L 501.9520, L506.1001, L501.9985, L500.4100, L502.0250, L500.4050, L3400.4600, L100.0100, L3410.9992 ####[facility] [address] [place], [place], [id number] Lipoprotein a [Mass/Vol]Orde red By: Madelin Alberto on 01-22-2025 Lipoprotein a [Moles/Vol] 155.1 nmol/L High <75.0 [facility] Comment on above: Note: Values greater than or equal to 75.0 nmol/L may indicate an independent risk factor for CHD, but must be evaluated with caution when applied to non- populations due to the influence of genetic factors on Lp(a) across ethnicities.Performed at: - [facility] [id number] Director: Stu eRyes PhD, Phone: [phone] Lymphocytes Auto (Unsp spec) [#/Vol]Ordered By: Madelin Alberto on 01-22-2025 Lymphocytes (Bld) [#/Vol] 1.58 10*3/uL 0.83-4.51 [facility] Lymphocytes/100 WBC Auto (Un sp spec)Ordered By: Madelin Alberto on 04-25-2025 Lymphocytes/100 WBC (Bld) 24.2 % 19-41 [facility] MCV (mean corpuscular volume ) determinationOrdered By: Madelin Alberto on 01-22-2025 MCV (RBC) [Entitic vol] 90.4 fL 81-99 [facility] Mean corpuscular hemoglobin (MCH) determinationOrdered By: Madelin Alberto on 01-22-2025 MCH (RBC) [Entitic mass] 30.1 pg 27.0-32.0 [facility] Mean corpuscular hemoglobin concentration (MCHC) determinationOrdered By: Madelin Alberto on 01-22-2025 MCHC (RBC) [Mass/Vol] 33.3 g/dL 32-36 [facility] Mean platelet volume determi nationOrdered By: Madelin Alberto on 01-22-2025 Platelet mean volume (Bld) [Entitic vol] 11.1 fL 6.2-12.0 [facility] Microalbumin/creat ratio urO rdered By: Madelin Alberto on 01-22-2025 Urine Microalbumin/Creatinin e Ratio 850.7 mg/g CRE [facility] Monocyte percentageOrdered B y: Madelin Alberto on 01-22-2025 Monocytes/100 WBC (Bld) 7.1 % 0-10 [facility] Neutrophil percentageOrdered By: Madelin Alberto on 01-22-2025 Neutrophils/100 WBC (Bld) 66.6 % 47-70 [facility] Nucleated red blood cell per centageOrdered By: Madelin Alberto on 01-22-2025 Nucleated RBC/100 WBC (Bld) [Ratio] 0 % 0-5 [facility] Platelet countOrdered By: Stefania Alberto on 01-22-2025 Platelets (Bld) [#/Vol] 201 10*3/uL 150-450 [facility] Potassium (Unsp spec) [Mass/ Vol]Ordered By: Madelin Alberto on 01-22-2025 Potassium [Moles/Vol] 3.4 mmol/L 3.3-5.1 [facility] Potassium measurement (mass/ volume)Ordered By: Madelin Alberto on 01-22-2025 Potassium (Unsp spec) [Mass/Vol] 3.4 mmol/L 3.3-5.1 [facility] RBC Auto (Bld) [#/Vol]Ordere d By: Madelin Alberto on 01-22-2025 RBC (Bld) [#/Vol] 4.68 10*6/uL 4.2-5.4 [facility] Random urine creatinine robbi urement (mass/volume)Ordered By: Madelin Alberto on 01-22-2025 Creatinine Unsp time (U) [Mass/Vol] 221.00 mg/dL High 28.00-217.00 [facility] Screening total cholesterol/ high density lipoprotein (HDL) cholesterol ratioOrdered By: Madelin Alberto on 01-22-2025 Cholesterol.total/Chol esterol in HDL [Mass ratio] 3.47 {ratio} [facility] Serum creatinine measurement (mass/volume)Ordered By: Madelin Alberto on 01-22-2025 Creatinine [Mass/Vol] 0.66 mg/dL Low 0.70-1.20 [facility] Serum globulin measurementOr dered By: Madelin Alberto on 01-22-2025 Globulin (S) [Mass/Vol] 3.1 g/dL 2.2-4.2 [facility] Serum glucose measurement (m ass/volume)Ordered By: Madelin Alberto on 01-22-2025 Glucose [Mass/Vol] 89 mg/dL 70-99 [facility] Serum or plasma alanine stringer otransferase (ALT) measurementOrdered By: Madelin Alberto on 01-22-2025 ALT [Catalytic activity/Vol] 10 U/L <35 [facility] Serum or plasma albumin robbi urement (mass/volume)Ordered By: Madelin Alberto on 01-22-2025 Albumin [Mass/Vol] 4.1 g/dL 3.4-4.8 [facility] Serum or plasma albumin/glob ulin mass ratioOrdered By: Madelin Alberto on 01-22-2025 Albumin/Globulin [Mass ratio] 1.3 {ratio} 0.9-2.4 [facility] Serum or plasma alkaline lenard sphatase measurementOrdered By: Madelin Alberto on 01-22-2025 ALP [Catalytic activity/Vol] 84 U/L 35-104 [facility] Serum or plasma calcium robbi urement (mass/volume)Ordered By: Madelin Alberto on 01-22-2025 Calcium [Mass/Vol] 9.2 mg/dL 7.6-11.0 [facility] Serum or plasma cholesterol in HDL measurement (mass/volume)Ordered By: Madelin Alberto on 01-22-2025 Cholesterol in HDL [Mass/Vol] 42 mg/dL >40 [facility] Comment on above: National Cholesterol Education Program (NCEP) guidelines:<40 mg/dL: Low HDL-cholesterol (major risk factor for CHD)>= 60 mg/dL: High HDL-cholesterol (negative risk factor for CHD)HDL-cholesterol is affected by a number of factors, e.g. smoking, exercise, hormones, sex and age. Serum or plasma cholesterol measurement (mass/volume)Ordered By: Madelin Alberto on 01-22-2025 Cholesterol [Mass/Vol] 146 mg/dL <201 [facility] Comment on above: Cholesterol level, D esirable <200 mg/dLBorderline high cholesterol 200-239 mg/dLHigh cholesterol >=240 mg/dLRecommendations of the NCEP Adult Treatment Panel for the following risk-cutoff thresholds for the [place] population. Serum or plasma urea nitroge n measurement (mass/volume)Ordered By: Madelin Alberto on 01-22-2025 Urea nitrogen [Mass/Vol] 17 mg/dL 4-19 [facility] Sodium levelOrdered By: Rosemarie Alberto on 01-22-2025 Sodium [Moles/Vol] 143 mmol/L 133-145 [facility] TSH DL <= 0.005 mIU/L QnOrde red By: Madelin Alberto on 01-22-2025 Thyroid Stimulating Hormone (TSH) 1.650 uIU/mL 0.300-4.200 [facility] TSH Qn 1.650 uIU/mL 0.300-4.200 [facility] Thyroid Stim Hormone (TSH)on 01-22-2025 TSH 1.650 uIU/mL Normal 0.300-4.200 [facility] Comment on above: Performed By: #### L 501.9520, L506.1001, L501.9985, L500.4100, L502.0250, L500.4050, L3400.4600, L100.0100, L3410.9992 ####[facility] [address] [place], [address] Total proteinOrdered By: Susanne Alberto on 01-22-2025 Protein [Mass/Vol] 7.2 g/dL 5.9-8.4 [facility] Triglycerides measurementOrd ered By: Madelin Alberto on 01-22-2025 Triglyceride [Mass/Vol] 104 mg/dL <199 [facility] Comment on above: The drugs N-Acetylcy steine and Metamizole may falsely depress this assay. Normal range: <150 mg/dLBorderline High: 150-199 mg/dLHigh: 200-499 mg/dLVery High: >500 mg/dL Urine albumin measurement wi detection limit of 20 mg/L or less (mass/volume)Ordered By: Madelin Alberto on 01-22-2025 Albumin DL <= 20 mg/L (U) [Mass/Vol] 188.0 mg/L NO RANGE EST. [facility] Vitamin D, 25-hydroxyOrdered By: Madelin Alberto on 01-22-2025 Vitamin D 25-Hydroxy 26.2 ng/mL Low 30-100 [facility] Comment on above: Vitamin D StatusDefi ciency: <20 ng/mL (50nmol/L)Insufficiency: 20-30 ng/mL (50-75 nmol/L)Sufficiency: 30-100 ng/mL (75-250 nmol/L)Toxicity: >100 ng/mL (>250 nmol/L) Vitamin D,25 Hydroxyon 01-22 Vitamin D 25-OH 26.2 ng/mL Low 30-100 [facility] Comment on above: Result Comment: Beronica min D Status Deficiency: <20 ng/mL (50nmol/L) Insufficiency: 20-30 ng/mL (50-75 nmol/L) Sufficiency: 30-100 ng/mL (75-250 nmol/L) Toxicity: >100 ng/mL (>250 nmol/L) Performed By: #### L 501.9534, L506.1001, L501.9985, L500.4100, L502.0250, L500.4050, L3400.4600, L100.0100, L3410.9992 ####[facility] [address] [place], [address] White blood cell (WBC) count Ordered By: Madelin Alberto on 01-22-2025 WBC (Bld) [#/Vol] 6.5 10*3/uL 4.4-11.0 [facility] 92-QZ-Kbseaai DOrdered By: Kaia Akbar on 11-09-2024 Vitamin D 25-Hydroxy 23.2 ng/mL [facility] Comment on above: Vitamin D 25(OH) Sta tus Range Deficiency <20 ng/mL (50nmol/L) Insufficiency 20 - 30 ng/mL (50 - 75 nmol/L) Sufficiency 30 - 100 ng/mL (75 - 250 nmol/L) Toxicity >100 ng/mL (>250 nmol/L) Albumin to globulin ratioOrd ered By: Bernarda Akbar on 11-09-2024 Albumin/Globulin [Mass ratio] 0.8 {ratio} Low 0.9-2.4 [facility] Bilirubin, totalOrdered By: Bernarda Akbar on 11-09-2024 Bilirubin [Mass/Vol] 0.70 mg/dL 0.20-1.00 [facility] Comment on above: For patients on eltr ombopag therapy, use of Dimension [place] TBIL is not recommended. Blood urea nitrogen (BUN)/cr eatinine ratioOrdered By: Bernarda Akbar on 11-09-2024 Urea nitrogen/Creatinine [Mass ratio] 25.9 mg/mg High 10-20 [facility] Carbon dioxide measurementOr dered By: Bernarda Akbar on 11-09-2024 CO2 [Moles/Vol] 32.0 mmol/L 21.0-32.0 [facility] Chloride measurementOrdered By: Bernarda Akbar on 11-09-2024 Chloride [Moles/Vol] 103 mmol/L 98-107 [facility] Comprehensive Metabolic Prof ilon 11-09-2024 Albumin [Mass/Vol] 3.4 g/dL Normal 3.2-5.0 [facility] Comment on above: Performed By: #### L 506.1000, L500.4100, L506.0400, L501.9520, L500.4050, L502.0250 ####[facility] [address] [place], [address] Albumin/Globulin [Mass ratio] 0.8 {ratio} Low 0.9-2.4 [facility] Comment on above: Performed By: #### L 506.1000, L500.4100, L506.0400, L501.9520, L500.4050, L502.0250 ####[facility] [address] [place], [address] ALK P 97 U/L Normal 45-117 [facility] Comment on above: Performed By: #### L 506.1000, L500.4100, L506.0400, L501.9520, L500.4050, L502.0250 ####[facility] [address] [place], [address] ALT [Catalytic activity/Vol] 15 U/L Normal 13-56 [facility] Comment on above: Performed By: #### L 506.1000, L500.4100, L506.0400, L501.9520, L500.4050, L502.0250 ####[facility] [address] [place], [address] AST [Catalytic activity/Vol] 10 U/L Low 15-37 [facility] Comment on above: Performed By: #### L 506.1000, L500.4100, L506.0400, L501.9520, L500.4050, L502.0250 ####[facility] [address] [place], [address] Bilirubin [Mass/Vol] 0.70 mg/dL Normal 0.20-1.00 [facility] Comment on above: Result Comment: For patients on eltrombopag therapy, use of Dimension [place] TBIL is not recommended. Performed By: #### L 506.1000, L500.4100, L506.0400, L501.9520, L500.4050, L502.0250 ####[facility] [address] [place], [address] BUN/CRE 25.9 RATIO High 10-20 [facility] Comment on above: Performed By: #### L 506.1000, L500.4100, L506.0400, L501.9520, L500.4050, L502.0250 ####[facility] [address] [place], [address] CA,Total 9.2 mg/dL Normal 8.5-10.1 [facility] Comment on above: Performed By: #### L 506.1000, L500.4100, L506.0400, L501.9520, L500.4050, L502.0250 ####[facility] [address] [place], [address] Chloride [Moles/Vol] 103 mmol/L Normal 98-107 [facility] Comment on above: Performed By: #### L 506.1000, L500.4100, L506.0400, L501.9520, L500.4050, L502.0250 ####[facility] [address] [place], [address] CO2 [Moles/Vol] 32.0 mmol/L Normal 21.0-32.0 [facility] Comment on above: Performed By: #### L 506.1000, L500.4100, L506.0400, L501.9520, L500.4050, L502.0250 ####[facility] [address] [place], [address] Creatinine [Mass/Vol] 0.70 mg/dL Normal 0.55-1.02 [facility] Comment on above: Result Comment: The validity of the calculated GFR GFRAA in patients over 70 years has not been determined. Clinical correlation is essential. Performed By: #### L 506.1000, L500.4100, L506.0400, L501.9520, L500.4050, L502.0250 ####[facility] [address] [place], [address] EST GFR - AA 108 mL/min Normal >60 [facility] Comment on above: Result Comment: Afri can Lao GFR Calc Performed By: #### L 506.1000, L500.4100, L506.0400, L501.9520, L500.4050, L502.0250 ####[facility] [address] [place], [address] GAP 6 Normal 5-15 [facility] Comment on above: Performed By: #### L 506.1000, L500.4100, L506.0400, L501.9520, L500.4050, L502.0250 ####[facility] [address] [place], [address] GFR/1.73 sq M.predicted among non-blacks MDRD (S/P/Bld) [Vol rate/Area] 89 mL/min/{1.73_m2} Normal >60 [facility] Comment on above: Result Comment: Non- GFR Calc Performed By: #### L 506.1000, L500.4100, L506.0400, L501.9520, L500.4050, L502.0250 ####[facility] [address] [place], [address] Globulin (S) [Mass/Vol] 4.1 g/dL Normal 2.2-4.2 [facility] Comment on above: Performed By: #### L 506.1000, L500.4100, L506.0400, L501.9520, L500.4050, L502.0250 ####[facility] [address] [place], [address] Glucose [Mass/Vol] 147 mg/dL High 74-106 [facility] Comment on above: Result Comment: Fast ing Glucose result greater than or equal to 126 mg/dL suggests DIABETES MELLITUS per A.D.A. criteria. Performed By: #### L 506.1000, L500.4100, L506.0400, L501.9520, L500.4050, L502.0250 ####[facility] [address] [place], [address] Potassium [Moles/Vol] 3.8 mmol/L Normal 3.5-5.1 [facility] Comment on above: Performed By: #### L 506.1000, L500.4100, L506.0400, L501.9520, L500.4050, L502.0250 ####[facility] [address] [place], [address] Sodium [Moles/Vol] 141 mmol/L Normal 136-145 [facility] Comment on above: Performed By: #### L 506.1000, L500.4100, L506.0400, L501.9520, L500.4050, L502.0250 ####[facility] [address] [place], [address] T PROT 7.5 g/dL Normal 6.4-8.2 [facility] Comment on above: Performed By: #### L 506.1000, L500.4100, L506.0400, L501.9520, L500.4050, L502.0250 ####[facility] [address] [place], [address] Urea nitrogen [Mass/Vol] 18 mg/dL Normal 7-18 [facility] Comment on above: Performed By: #### L 506.1000, L500.4100, L506.0400, L501.9520, L500.4050, L502.0250 ####[facility] [address] [place], [address] Direct serum free thyroxine (FT4) measurementOrdered By: Bernarda Akbar on 11-09-2024 Free T4 [Mass/Vol] 1.19 ng/dL 0.76-1.46 [facility] Endocrinology Visit Reporton 11-09-2024 Endocrinology Visit Report [facility] [address] [place] [address] OFFICE VISIT Date of Service: 11/09/24 MR#: [id number] Acct: [id number] Name: ERIN LAWRENCE Rep #: [id number] : 1955 Provider: JOVI cueto Age/Sex: 69/F [place] [facility]: Signed Intake Vital Signs 07/06/24 13:01 11/09/24 09:35 Height 5 ft 5 in 5 ft 5 in Weight: 176 lb 181 lb BMI 29.2 30.1 BP 152/90 H 169/89 H Blood Pressure Location Lt brachial Rt brachial Position Sitting Sitting Pulse 75 73 Pulse Source Monitor Monitor Pulse Oximetry (%) 93 95 Oxygen Delivery Method room air room air Intake Visit Reasons: 4 M FU Chief Complaint: f/u diabetes Is patient in pain?: No Allergies glimepiride (From Amaryl) Allergy (Mild, Verified 11/09/24 09:42) rash lisinopril Allergy (Mild, Verified 11/09/24 09:42) rash losartan Allergy (Mild, Verified 11/09/24 09:42) rash Medications ???Medication ???Instructions ???Recorded ???Confirmed ???Type cholecalciferol (vitamin D3) 125 125 mcg PO DAILY Check with 11/09/24 History mcg (5,000 unit) capsule primary doctor levothyroxine 50 mcg capsule 50 mcg PO DAILY Check with primary 02/14/21 11/09/24 History doctor rosuvastatin 10 mg tablet 10 mg PO QHS Check with primary 11/09/24 History doctor venlafaxine 75 mg tablet 75 mg PO DAILY Check with primary 02/14/21 11/09/24 History doctor amlodipine 10 mg tablet 10 mg PO DAILY Check with primary 02/23/23 11/09/24 History doctor insulin human U-100 NPH-regulr 15 unit (0.15 mL) subcut BID #10 m L 03/18/23 11/09/24 Rx 70-30 mix 100 unit/mL subcutaneous susp (Novolin 70/30 U-100 Insulin) metformin 500 mg tablet 1,000 mg (2 x 500 mg) PO BID #360 03/18/23 11/09/24 Rx tabs fluticasone 232mcg-salmeterol 1 inh inhalation BID 08/08/2310/31 History 14mcg/actuation breath act,powder sensor zoledronic acid 5 mg/100 mL in See Rx Instructions .Route 4 11/09/24 Rx mannitol 5 %-water intravenous .COMPLEX #100 mL piggybck 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 meter,continuous #1 ea 03/12/24 11/09/24 Rx (FreeStyle Angeline 3 [place]) 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 sensor (FreeStyle #2 ea 03/12/24 11/09/24 Rx Angeline 3 Sensor device) insulin syringe-needle U-100 0.3 #100 ea 07/02/24 11/09/24 Rx mL 31 gauge x 5/16 (BD Insulin Syringe Ultra-Fine) semaglutide 2 mg/dose (8 mg/3 mL) 2 mg (0.75 mL) subcut QWEEK #3 mL 07/06/24 11/09/24 Rx subcutaneous pen injector (Ozempic) prednisone 10 mg tablet mg PO 11/09/24 11/09/24 History Have you fallen in the past year?: No PFSH Medical History Obesity (BMI 30.0-34.9) Overweight (BMI 25.0-29.9) Mixed hyperlipidemia Benign hypertension Vitamin deficiency High triglycerides High cholesterol Diabetes Cataracts, bilateral Asthma Surgical History Hx of appendectomy Family History Sister Arthritis Colon cancer, Onset Age: 54 Mother Colon cancer, Onset Age: 71 Diabetes Myocardial infarction, Onset Age: 71 Aunt Uterine cancer Social History household members: none Smoking Status: Never smoker alcohol intake: never substance use type: does not use HPI HPI Chief Complaint: f/u diabetes Details: ERIN LAWRENCE, is a 69 F who presents to the office today for evaluation and management of diabetes. A1C today is 8.6%, increased from 07/06/24 at 7.2%. She has gained 5 lbs since that time. She admits that she is off track with her diet, her just prior to . She had rash d/t allergic reaction and was placed on tapered steroid pack. She is almost finished with this. Currently taking 70/30 15 u BID, metformin 1 gm BID with food, and Ozempic 2 mg qweek. CGM downloaded and reviewed- she is having post meal elevations, most significantly following supper. She denies any significant episodes of hypoglycemia that have required assistance from others. BP elevated today. Currently taking amlodipine 10 mg once daily. Reports compliance with medication. Again, she is finishing prednisone course. She is hypothyroid. Currently taking levothyroxine 50 mcg once daily. She states that she doesn't typically wait 30-60 minutes prior to eating/drinking. She takes medication with coke zero. She has osteoporosis and is due for her Reclast infusion this month, 11/04. She denies any recent fractures. She takes a daily statin. Denies any acute concerns. ROS Const Constitutional: Positive for fatigue and weight change ENT ENT: No dizziness/vertigo Cardio Cardio (more content not included)... Normal [facility] Estimated glomerular filtrat ion rate (GFR) AmericanOrdered By: Bernarda Akbar on 11-09-2024 Estimated GFR (MDRD) Amer 108 mL/min >60 [facility] Comment on above: GFR Calc Glomerular filtration rate ( GFR) estimationOrdered By: Bernarda Akbar on 11-09-2024 Estimated GFR (MDRD) Non-Af Amer 89 mL/min >60 [facility] Comment on above: Non- GFR Calc GFR/1.73 sq M.predicted among non-blacks MDRD (S/P/Bld) [Vol rate/Area] 89 mL/min/{1.73_m2} >60 [facility] Comment on above: Non- GFR Calc Glucose measurementOrdered B y: Bernarda Akbar on 11-09-2024 Glucose [Mass/Vol] 147 mg/dL High 74-106 [facility] Comment on above: Fasting Glucose resu lt greater than or equal to 126 mg/dL suggests DIABETES MELLITUS per A.D.A. criteria. High density lipoprotein (HD L) measurementOrdered By: Bernarda Akbar on 11-09-2024 Cholesterol in HDL [Mass/Vol] 56 mg/dL >40 [facility] Comment on above: The drugs N-Acetylcy steine and Metamizole may falsely depress this assay. Reference Range HDL <40 mg/dL Low HDL Cholesterol HDL >or= 60 mg/dL High HDL Cholesterol Laboratory - Chemistry and C hemistry - challengeOrdered By: Bernarda Akbar on 11-09-2024 AST [Catalytic activity/Vol] 10 U/L Low 15-37 [facility] Laboratory - Hematology and Cell countsOrdered By: Bernarda Akbar on 11-09-2024 HbA1c (Bld) [Mass fraction] 8.6 % High 4.2-6.3 [facility] Lipid Profileon 11-09-2024 Cholesterol [Mass/Vol] 148 mg/dL Normal 200 [facility] Comment on above: Result Comment: <200 mg/dL Desirable 200-240 mg/dL Borderline >240 mg/dL High Risk Performed By: #### L 506.1000, L500.4100, L506.0400, L501.9520, L500.4050, L502.0250 ####[facility] [address] [place], [address] Cholesterol in HDL [Mass/Vol] 56 mg/dL Normal [facility] Comment on above: Result Comment: The drugs N-Acetylcysteine and Metamizole may falsely depress this assay. Reference Range HDL <40 mg/dL Low HDL Cholesterol HDL >or= 60 mg/dL High HDL Cholesterol Performed By: #### L 506.1000, L500.4100, L506.0400, L501.9520, L500.4050, L502.0250 ####[facility] [address] [place], [address] Cholesterol in LDL [Mass/Vol] 69 mg/dL Normal 0-130 [facility] Comment on above: Performed By: #### L 506.1000, L500.4100, L506.0400, L501.9520, L500.4050, L502.0250 ####[facility] [address] [place], [address] Cholesterol in VLDL [Mass/Vol] 23 mg/dL Normal 5-40 [facility] Comment on above: Performed By: #### L 506.1000, L500.4100, L506.0400, L501.9520, L500.4050, L502.0250 ####[facility] [address] [place], [address] Triglyceride [Mass/Vol] 117 mg/dL Normal [facility] Comment on above: Result Comment: The drugs N-Acetylcysteine and Metamizole may falsely depress this assay. Serum Triglycerides Reference Interval Normal <150 mg/dL Borderline high 150 - 199 mg/dL High 200 - 499 mg/dL Very High > or = 500 mg/dL Performed By: #### L 506.1000, L500.4100, L506.0400, L501.9520, L500.4050, L502.0250 ####[facility] [address] [place], [address] Low density lipoprotein (LDL ) cholesterol measurementOrdered By: Benrarda Akbar on 11-09-2024 Cholesterol in LDL [Mass/Vol] 69 mg/dL 0-130 [facility] Microalb:Creat Ratio,Random URon 11-09-2024 Creatinine [Mass/Vol] 140.00 mg/dL Normal NO RAN GE EST. [facility] Comment on above: Performed By: #### L 506.1000, L500.4100, L506.0400, L501.9520, L500.4050, L502.0250 ####[facility] [address] [place], [address] MALB:CRE 128.6 mg/g CRE High <30 mg/g CRE [facility] Comment on above: Performed By: #### L 506.1000, L500.4100, L506.0400, L501.9520, L500.4050, L502.0250 ####[facility] [address] [place], [address] MICROALBUMIN,UR 180.0 mg/L Normal NO RANGE EST. [facility] Comment on above: Performed By: #### L 506.1000, L500.4100, L506.0400, L501.9520, L500.4050, L502.0250 ####[facility] [address] [place], [address] Potassium measurementOrdered By: Bernarda Akbar on 11-09-2024 Potassium [Moles/Vol] 3.8 mmol/L 3.5-5.1 [facility] Random urine microalbumin me asurementOrdered By: Bernarda Akbar on 11-09-2024 Urine Random Microalbumin 180.0 mg/L NO RANGE EST. [facility] Serum anion gap measurementO rdered By: Bernarda Akbar on 11-09-2024 Anion gap [Moles/Vol] 6 mmol/L 5-15 [facility] Serum globulin measurementOr dered By: Bernarda Akbar on 11-09-2024 Globulin (S) [Mass/Vol] 4.1 g/dL 2.2-4.2 [facility] Serum or plasma alanine stringer otransferase (ALT) measurementOrdered By: Bernarda Akbar on 11-09-2024 ALT [Catalytic activity/Vol] 15 U/L 13-56 [facility] Serum or plasma albumin robbi urement (mass/volume)Ordered By: Bernarda Akbar on 11-09-2024 Albumin [Mass/Vol] 3.4 g/dL 3.2-5.0 [facility] Serum or plasma alkaline lenard sphatase measurementOrdered By: Bernarda Akbar on 11-09-2024 ALP [Catalytic activity/Vol] 97 U/L 45-117 [facility] Serum or plasma calcium robbi urement (mass/volume)Ordered By: Bernarda Akbar on 11-09-2024 Calcium [Mass/Vol] 9.2 mg/dL 8.5-10.1 [facility] Serum or plasma cholesterol measurement (mass/volume)Ordered By: Bernarda Akbar on 11-09-2024 Cholesterol [Mass/Vol] 148 mg/dL <200 [facility] Comment on above: <200 mg/dL Desirable 200-240 mg/dL Borderline >240 mg/dL High Risk Serum or plasma creatinine m easurement (mass/volume)Ordered By: Bernarda Akbar on 11-09-2024 Creatinine [Mass/Vol] 0.70 mg/dL 0.55-1.02 [facility] Comment on above: The validity of the calculated GFR & GFRAA in patients over 70 years has not been determined. Clinical correlation is essential. Serum or plasma thyroid stim ulating hormone (TSH) measurement (units/volume)Ordered By: Bernarda Akbar on 11-09-2024 TSH Qn 1.580 uIU/mL 0.358-3.740 [facility] Serum or plasma urea nitroge n measurement (mass/volume)Ordered By: Bernarda Akbar on 11-09-2024 Urea nitrogen [Mass/Vol] 18 mg/dL 7-18 [facility] Sodium levelOrdered By: Guzman Akbar on 11-09-2024 Sodium [Moles/Vol] 141 mmol/L 136-145 [facility] T4 Free Directon 11-09-2024 T4 FREE DIRECT 1.19 ng/dL Normal 0.76-1.46 [facility] Comment on above: Performed By: #### L 506.1000, L500.4100, L506.0400, L501.9520, L500.4050, L502.0250 ####[facility] [address] [place], [address] TSH QnOrdered By: Bernarda cueto on 11-09-2024 Thyroid Stimulating Hormone (TSH) 1.580 uIU/mL 0.358-3.740 [facility] Thyroid Stim Hormone (TSH)on 11-09-2024 TSH 1.580 uIU/mL Normal 0.358-3.740 [facility] Comment on above: Performed By: #### L 506.1000, L500.4100, L506.0400, L501.9520, L500.4050, L502.0250 ####[facility] [address] [place], [address] Total proteinOrdered By: Cynthia Akbar on 11-09-2024 Protein [Mass/Vol] 7.5 g/dL 6.4-8.2 [facility] Triglycerides measurementOrd ered By: Bernarda Akbar on 11-09-2024 Triglyceride [Mass/Vol] 117 mg/dL <199 [facility] Comment on above: The drugs N-Acetylcy steine and Metamizole may falsely depress this assay.Serum Triglycerides Reference Interval Normal <150 mg/dL Borderline high 150 - 199 mg/dL High 200 - 499 mg/dL Very High > or = 500 mg/dL Urine albumin/creatinine rat io for detection of microalbuminuriaOrdered By: Bernarda Akbar on 11-09-2024 Urine Microalbumin/Creatinin e Ratio 128.6 mg/g CRE High <30 [facility] Urine creatinine measurement (mass/volume)Ordered By: Bernarda Akbar on 11-09-2024 Creatinine (U) [Mass/Vol] 140.00 mg/dL NO RANGE EST. [facility] Very low density lipoprotein (VLDL) cholesterol measurementOrdered By: Bernarda Akbar on 11-09-2024 Very low density lipoprotein (VLDL) cholesterol measurement 23 mg/dL 5-40 [facility] VLDL Cholesterol 23 mg/dL 5-40 [facility] Vitamin D,25 Hydroxyon 11-09 Vitamin D 25-OH 23.2 ng/mL Normal [facility] Comment on above: Result Comment: Beronica min D 25(OH) Status Range Deficiency <20 ng/mL (50nmol/L) Insufficiency 20 - 30 ng/mL (50 - 75 nmol/L) Sufficiency 30 - 100 ng/mL (75 - 250 nmol/L) Toxicity >100 ng/mL (>250 nmol/L) Performed By: #### L 506.1000, L500.4100, L506.0400, L501.9520, L500.4050, L502.0250 ####[facility] [address] [place], [address] Hemoglobin A1con 07-10-2024 HbA1c (Bld) [Mass fraction] 7.2 % High 3.8-5.6 [facility] Comment on above: Result Comment: Norm al < 5.7 % Prediabetic 5.7 - 6.4 % Diabetic >or= 6.5 % Please note range changes. Performed By: #### L 506.0400, L501.9520, L501.9985 #### [facility] [address] [place], [address] T4 Free Directon 07-10-2024 T4 FREE DIRECT 0.90 ng/dL Normal 0.76-1.46 [facility] Comment on above: Performed By: #### L 506.0400, L501.9520, L501.9985 #### [facility] [address] [place], [address] Thyroid Stim Hormone (TSH)on 07-10-2024 TSH 1.470 uIU/mL Normal 0.358-3.740 [facility] Comment on above: Performed By: #### L 506.0400, L501.9520, L501.9985 #### [facility] [address] [place], [address] Endocrinology Visit Reporton 07-06-2024 Endocrinology Visit Report [facility] [address] [place], [place] [address] OFFICE VISIT Date of Service: 07/06/24 MR#: [id number] Acct: [id number] Name: ERIN LAWRENCE Rep #: [id number] : 1955 Provider: JOVI cueto Age/Sex: 69/F [place] [facility] [place]: Signed Intake Vital Signs 03/12/24 13:44 07/06/24 13:01 Height 5 ft 5 in 5 ft 5 in Weight: 176 lb 176 lb BMI 29.2 29.2 BP 131/79 H 152/90 H Blood Pressure Location Lt brachial Lt brachial Position Sitting Sitting Pulse 79 75 Pulse Source Monitor Monitor Pulse Oximetry (%) 99 93 Oxygen Delivery Method room air room air Intake Visit Reasons: 4 M FU Chief Complaint: f/u diabetes Is patient in pain?: No Allergies glimepiride (From Amaryl) Allergy (Mild, Verified 03/12/24 13:49) rash lisinopril Allergy (Mild, Verified 03/12/24 13:49) rash losartan Allergy (Mild, Verified 03/12/24 13:49) rash Medications ???Medication ???Instructions ???Recorded ???Confirmed ???Type cholecalciferol (vitamin D3) 125 125 mcg PO DAILY Check with 02/14/21 07/06/24 History mcg (5,000 unit) capsule primary doctor levothyroxine 50 mcg capsule 50 mcg PO DAILY Check with primary 02/14/21 07/06/24 History doctor rosuvastatin 10 mg tablet 10 mg PO QHS Check with primary 02/14/21 07/06/24 History doctor venlafaxine 75 mg tablet 75 mg PO DAILY Check with primary 02/14/21 07/06/24 History doctor amlodipine 10 mg tablet 10 mg PO DAILY Check with primary 02/23/23 07/06/24 History doctor insulin human U-100 NPH-regulr 15 unit (0.15 mL) subcut BID #10 mL 03/18/23 07/06/24 Rx 70-30 mix 100 unit/mL subcutaneous susp (Novolin 70/30 U-100 Insulin) metformin 500 mg tablet 1,000 mg (2 x 500 mg) PO BID #360 03/18/23 07/06/24 Rx tabs fluticasone 232mcg-salmeterol 1 inh inhalation BID 08/08/23 07/06/24 History 14mcg/actuation breath act,powder sensor zoledronic acid 5 mg/100 mL in See Rx Instructions .Route 11/14/23 07/06/24 Rx mannitol 5 %-water intravenous .COMPLEX #100 mL piggybck 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 meter,continuous #1 ea 03/12/24 07/06/24 Rx (FreeStyle Angeline 3 [place]) 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 sensor (FreeStyle #2 ea 03/12/24 07/06/24 Rx Angeline 3 Sensor device) insulin syringe-needle U-100 0.3 #100 ea 07/02/24 07/06/24 Rx mL 31 gauge x 5/16 (BD Insulin Syringe Ultra-Fine) semaglutide 2 mg/dose (8 mg/3 mL) 2 mg (0.75 mL) subcut QWEEK #3 mL 07/06/24 07/06/24 Rx subcutaneous pen injector (Ozempic) Have you fallen in the past year?: No PFS Medical History (Updated 07/06/24 @ 16:26 by Bernarda Akbar NP-C) Obesity (BMI 30.0-34.9) Overweight (BMI 25.0-29.9) Mixed hyperlipidemia Benign hypertension Vitamin deficiency High triglycerides High cholesterol Diabetes Cataracts, bilateral Asthma Surgical History Hx of appendectomy Family History Sister Arthritis Colon cancer, Onset Age: 54 Mother Colon cancer, Onset Age: 71 Diabetes Myocardial infarction, Onset Age: 71 Aunt Uterine cancer Social History household members: none Smoking Status: Never smoker alcohol intake: never substance use type: does not use HPI HPI Chief Complaint: f/u diabetes Details: ERIN LAWRENCE, is a 69 F who presents to the office today for evaluation and management of diabetes. A1C today is 7.9%, increased from 03/12/24 at 7.0%. Weight is stable. Currently taking 70/30 15 u BID, metformin 1 gm BID- she typically does not take evening dose with food, and Ozempic 1 mg qweek- tolerating well. GLP-1 is costly to her, she is applying for [employer] patient assistance. CGM downloaded and reviewed- she is having post meal elevations. Denies any significant episodes of hypoglycemia that have required assistance from others. She admits that she is off track with her diet. Currently taking levothyroxine 50 mcg once daily. Reports compliance with medication regimen. She reports increase in anxiety and irritability. Initial BP today is 152/90. Repeat manual BP 162/92. Currently taking amlodipine 10 mg once daily. She has not taken her medication yet today. Labs are up to date. Denies any acute concerns. ROS Const Constitutional: Positive for fatigue; No weight change ENT ENT: No dizziness/vertigo Cardio Cardiology: No chest pain at rest, chest pain with exertion, shortness of breath or palpitations Psych Psychiatric: Positive for anxiety and Positive for irritability Gastro GI: Positive for constipation Skin Skin: No wounds Endo Endocrine: Positive for fatigue; No weight change Exam Const General: cooperative, h (more content not included)... Normal [facility] Basophil percentageOrdered B y: Madelin Alberto on 10-30-2023 Basophil percentage 0-5 SEEN /hpf 0-5 [facility] Bilirubin Test strip Ql (U)O rdered By: Madelin Alberto on 10-30-2023 Bilirubin Ql (U) Negative Negative [facility] Ketones Test strip Ql (U)Ord ered By: Madelin Alberto on 10-30-2023 Ketones Ql (U) Negative Negative [facility] Mucus LM Ql (Urine sed)Order ed By: Madelin Alberto on 10-30-2023 Mucus Ql (Urine sed) 1+ /hpf [facility] Nitrite Test strip Ql (U)Ord ered By: Madelin Alberto on 10-30-2023 Nitrite Ql (U) Negative Negative [facility] No Panel InformationOrdered By: Madelin Alberto on 10-30-2023 Urine RBC 0 SEEN /hpf 0-5 [facility] Protein Test strip Ql (U)Ord ered By: Madelin Alberto on 10-30-2023 Protein Ql (U) 30 mg/dl Negative [facility] Squamous epithelial cells de tection in urine sediment by light microscopyOrdered By: Madelin Alberto on 10-30-2023 Epithelial cells.squamous LM Ql (Urine sed) 0-5 SEEN /hpf 5-10 [facility] Thin prep Papanicolaou smear with manual screeningOrdered By: Madelin Alberto on 10-30-2023 Thin prep Papanicolaou smear with manual screening 80.0 mg/L NO RANGE EST. [facility] Urine albumin/creatinine rat io for detection of microalbuminuriaOrdered By: Madelin Alberto on 10-30-2023 Albumin/Creatinine DL <= 1.0 mg/L (24H U) [Ratio] 117.1 mg/g CRE <30 [facility] Urine blood detectionOrdered By: Madelin Alberto on 10-30-2023 RBC Ql (U) Negative Negative [facility] Urine clarityOrdered By: Susanne Alberto on 10-30-2023 Clarity (U) Sl. Cloudy Clear [facility] Urine color determinationOrd ered By: Madelin Alberto on 10-30-2023 Color (U) Yellow Yellow [facility] Urine creatinine measurement (mass/volume)Ordered By: Madelin Alberto on 10-30-2023 Creatinine (U) [Mass/Vol] 68.30 mg/dL NO RANGE EST. [facility] Urine glucose detectionOrder ed By: Madelin Alberto on 10-30-2023 Glucose Ql (U) Normal mg/dl Normal [facility] Urine leukocyte esterase det ection by dipstickOrdered By: Madelin Alberto on 10-30-2023 Leukocyte esterase Test strip Ql (U) 25 /ul Negative [facility] Urine pHOrdered By: Madelin Alberto on 10-30-2023 pH (U) 6.0 [pH] 5.0 - 8.0 [facility] Urine sediment bacteria coun t by microscopy (number/high power field)Ordered By: Madelin Alberto on 10-30-2023 Bacteria LM.HPF (Urine sed) [#/Area] RARE /hpf None Seen [facility] Urine specific gravity measu rementOrdered By: Madelin Alberto on 10-30-2023 Specific gravity (U) [Rel density] 1.015 1.002-1.030 [facility] Urine urobilinogen measureme ntOrdered By: Madelin Alberto on 10-30-2023 Urobilinogen Ql (U) 1 mg/dl Normal [facility] Absolute lymphocyte countOrd ered By: Madelin Alberto on 10-29-2023 Lymphocytes Auto (Unsp spec) [#/Vol] 1.46 10*3/uL 0.83-4.51 [facility] Automated lymphocyte count a s percentage of total leukocytesOrdered By: Madelin Alberto on 01-30-2024 Lymphocytes/100 WBC Auto (Unsp spec) 20.8 % 19-41 [facility] Basophil percentageOrdered B y: Madelin Alberto on 10-29-2023 Basophils/100 WBC (Bld) 0.3 % 0-1 [facility] Bilirubin [Mass/Vol] 0.60 mg/dL 0.20-1.00 [facility] Comment on above: For patients on eltr ombopag therapy, use of Dimension [place] TBIL is not recommended. Chloride [Moles/Vol] 109 mmol/L 98-107 [facility] Cholesterol [Mass/Vol] 140 mg/dL <200 [facility] Comment on above: <200 mg/dL Desirable 200-240 mg/dL Borderline >240 mg/dL High Risk Eosinophils/100 WBC (Bld) 1.6 % 0-5 [facility] Glucose [Mass/Vol] 119 mg/dL 74-106 [facility] Comment on above: Fasting Glucose resu lt from 100 to 125 mg/dL suggests IMPAIRED HOMEOSTASIS per A.D.A. criteria. Hemoglobin (Bld) [Mass/Vol] 13.7 g/dL 12.0-15.0 [facility] Monocytes/100 WBC (Bld) 6.8 % 0-10 [facility] Neutrophils (Bld) [#/Vol] 4.9 10*3/uL 2.0-7.7 [facility] Neutrophils/100 WBC (Bld) 70.1 % 47-70 [facility] Potassium [Moles/Vol] 3.5 mmol/L 3.5-5.1 [facility] Protein [Mass/Vol] 7.7 g/dL 6.4-8.2 [facility] Sodium [Moles/Vol] 143 mmol/L 136-145 [facility] Triglyceride [Mass/Vol] 128 mg/dL <199 [facility] Comment on above: The drugs N-Acetylcy steine and Metamizole may falsely depress this assay.Serum Triglycerides Reference Interval Normal <150 mg/dL Borderline high 150 - 199 mg/dL High 200 - 499 mg/dL Very High > or = 500 mg/dL WBC (Bld) [#/Vol] 7.0 10*3/uL 4.4-11.0 [facility] Determination of erythrocyte mean corpuscular volume (MCV)Ordered By: Madelin Alberto on 10-29-2023 MCV (RBC) [Entitic vol] 92.7 fL 81-99 [facility] Erythrocyte distribution wid th ratioOrdered By: Madelin Alberto on 10-29-2023 Erythrocyte distribution width (RBC) [Ratio] 13.5 % 11.6-14.6 [facility] Erythrocyte distribution wid th standard deviationOrdered By: Madelin Alberto on 10-29-2023 Erythrocyte distribution width (RBC) [Entitic vol] 45.9 fL 35.1-43.9 [facility] Hematocrit Auto (Bld) [Volum e fraction]Ordered By: Madelin Alberto on 10-29-2023 Hematocrit (Bld) [Volume fraction] 43.1 % 37-47 [facility] High density lipoprotein (HD L) measurementOrdered By: Madelin Alberto on 10-29-2023 Cholesterol in HDL (Body fld) [Mass/Vol] 44 mg/dL >40 [facility] Comment on above: The drugs N-Acetylcy steine and Metamizole may falsely depress this assay. Reference Range HDL <40 mg/dL Low HDL Cholesterol HDL >or= 60 mg/dL High HDL Cholesterol Immature granulocytes/100 WB C Auto (Bld)Ordered By: Madelin Alberto on 10-29-2023 Immature granulocytes/100 WBC (Bld) 0.400 % 0.0-0.9 [facility] Comment on above: IG% - Immature Granu locytes (promyelocytes, myelocytes and metamyelocytes) > 1% indicates that a LEFT SHIFT is Present. Laboratory - Chemistry and C hemistry - challengeOrdered By: Madelin Alberto on 10-29-2023 Albumin/Globulin [Mass ratio] 0.9 {ratio} 0.9-2.4 [facility] ALP [Catalytic activity/Vol] 93 U/L 45-117 [facility] ALT [Catalytic activity/Vol] 15 U/L 13-56 [facility] CO2 [Moles/Vol] 31.0 mmol/L 21.0-32.0 [facility] Globulin (S) [Mass/Vol] 4.1 g/dL 2.2-4.2 [facility] Urea nitrogen/Creatinine [Mass ratio] 22.1 mg/mg 10-20 [facility] Laboratory - Hematology and Cell countsOrdered By: Madelin Alberto on 10-29-2023 MCH (RBC) [Entitic mass] 29.5 pg 27.0-32.0 [facility] MCHC (RBC) [Mass/Vol] 31.8 g/dL 32-36 [facility] Nucleated RBC/100 WBC (Bld) [Ratio] 0 % 0-5 [facility] Platelets (Bld) [#/Vol] 220 10*3/uL 150-450 [facility] Low density lipoprotein (LDL ) cholesterol measurementOrdered By: Madelin Alberto on 10-29-2023 Cholesterol in LDL (Body fld) [Moles/Vol] 70 mg/dL 0-130 [facility] No Panel InformationOrdered By: Madelin Alberto on 10-29-2023 Estimated GFR (MDRD) Amer 120 mL/min >60 [facility] Comment on above: GFR Calc Estimated GFR (MDRD) Non-Af Amer 99 mL/min >60 [facility] Comment on above: Non- GFR Calc Vitamin D 25-Hydroxy 36.0 ng/mL [facility] Comment on above: Vitamin D 25(OH) Sta tus Range Deficiency <20 ng/mL (50nmol/L) Insufficiency 20 - 30 ng/mL (50 - 75 nmol/L) Sufficiency 30 - 100 ng/mL (75 - 250 nmol/L) Toxicity >100 ng/mL (>250 nmol/L) Platelet mean volume Nik-Ec ker (Bld) [Entitic vol]Ordered By: Madelin Alberto on 10-29-2023 Platelet mean volume (Bld) [Entitic vol] 10.4 fL 6.2-12.0 [facility] RBC Auto (Bld) [#/Vol]Ordere d By: Madelin Alberto on 10-29-2023 RBC (Bld) [#/Vol] 4.65 10*6/uL 4.2-5.4 [facility] Serum or plasma calcium robbi urement (mass/volume)Ordered By: Madelin Alberto on 10-29-2023 Calcium [Mass/Vol] 9.0 mg/dL 8.5-10.1 [facility] Serum or plasma creatinine m easurement (mass/volume)Ordered By: Madelin Alberto on 10-29-2023 Creatinine [Mass/Vol] 0.63 mg/dL 0.55-1.02 [facility] Comment on above: The validity of the calculated GFR & GFRAA in patients over 70 years has not been determined. Clinical correlation is essential. Serum or plasma thyroid stim ulating hormone (TSH) measurement (units/volume)Ordered By: Madelin Alberto on 10-29-2023 TSH Qn 1.42 uIU/mL 0.358-3.74 [facility] Serum or plasma urea nitroge n measurement (mass/volume)Ordered By: Madelin Alberto on 10-29-2023 Urea nitrogen [Mass/Vol] 14 mg/dL 7-18 [facility] Thin prep Papanicolaou smear with manual screeningOrdered By: Madelin Alberto on 10-29-2023 Thin prep Papanicolaou smear with manual screening 3.6 g/dL 3.2-5.0 [facility] Thin prep Papanicolaou smear with manual screening 11 U/L 15-37 [facility] Thin prep Papanicolaou smear with manual screening 3 5-15 [facility] Very low density lipoprotein (VLDL) cholesterol measurementOrdered By: Madelin Alberto on 10-29-2023 Cholesterol in VLDL Calc [Moles/Vol] 26 mg/dL 5-40 [facility] Laboratory - Hematology and Cell countson 03-18-2023 HbA1c (Bld) [Mass fraction] 8.1 % 4.2-6.3 [facility] CALCIFEDIOL ([id number])Ordered B y: Manager Clinical Services on 03-13-2023 25-hydroxyvitamin D [Mass/Vol] 30.6 ng/mL Normal 30.0-100.0 [facility]; [facility] Work Phone: CBC W/AUTO DIFF WBC ([id number])O rdered By: Manager Clinical Services on 03-13-2023 Basophils (Bld) [#/Vol] 0.0 10*3/uL Normal 0.0-0.2 [facility]; [facility] Work Phone: Basophils/100 WBC (Bld) 1 % Normal [facility]; [facility] Work Phone: Eosinophils (Bld) [#/Vol] 0.2 10*3/uL Normal 0.0-0.4 [facility]; [facility] Work Phone: Eosinophils/100 WBC (Bld) 4 % Normal [facility]; [facility] Work Phone: Erythrocyte distribution width (RBC) [Ratio] 13.3 % Normal 11.7-15.4 [facility]; [facility] Work Phone: Hematocrit (Bld) [Volume fraction] 41.9 % Normal 34.0-46.6 [facility]; [facility] Work Phone: Hemoglobin (Bld) [Mass/Vol] 13.8 g/dL Normal 11.1-15.9 [facility]; [facility] Work Phone: Immature granulocytes (Bld) [#/Vol] 0.0 10*3/uL Normal 0.0-0.1 [facility]; [facility] Work Phone: Immature granulocytes/100 WBC (Bld) 0 % Normal [facility]; [facility] Work Phone: Lymphocytes (Bld) [#/Vol] 1.7 10*3/uL Normal 0.7-3.1 [facility]; [facility] Work Phone: Lymphocytes/100 WBC (Bld) 33 % Normal [facility]; [facility] Work Phone: MCH (RBC) [Entitic mass] 29.5 pg Normal 26.6-33.0 [facility]; [facility] Work Phone: MCHC (RBC) [Mass/Vol] 32.9 g/dL Normal 31.5-35.7 [facility]; [facility] Work Phone: MCV (RBC) [Entitic vol] 90 fL Normal 79-97 [facility]; [facility] Work Phone: Monocytes (Bld) [#/Vol] 0.4 10*3/uL Normal 0.1-0.9 [facility]; [facility] Work Phone: Monocytes/100 WBC (Bld) 8 % Normal [facility]; [facility] Work Phone: Neutrophils (Bld) [#/Vol] 2.8 10*3/uL Normal 1.4-7.0 [facility]; [facility] Work Phone: Neutrophils/100 WBC (Bld) 54 % Normal [facility]; [facility] Work Phone: Platelets (Bld) [#/Vol] 260 10*3/uL Normal 150-450 [facility]; [facility] Work Phone: RBC (Bld) [#/Vol] 4.68 10*6/uL Normal 3.77-5.28 [facility]; [facility] Work Phone: WBC (Bld) [#/Vol] 5.2 10*3/uL Normal 3.4-10.8 [facility]; [facility] Work Phone: LIPID PANEL ([id number])Ordered B y: Manager Clinical Services on 03-13-2023 Cholesterol [Mass/Vol] 162 mg/dL Normal 100-199 [facility] Work Phone: Cholesterol in HDL [Mass/Vol] 41 mg/dL Normal [facility]; [facility] Work Phone: Triglyceride [Mass/Vol] 128 mg/dL Normal 0-149 [facility]; [facility] Work Phone: LIPID PANEL ([id number]) 23 mg/dL Normal 5-40 [facility]; [facility] Work Phone: LIPID PANEL ([id number]) 98 mg/dL Normal 0-99 [facility]; [facility] Work Phone: LIPID PANEL ([id number]) 2.4 {ratio} Normal 0.0-3.2 [facility] Work Phone: METABOLIC PANEL, COMPREHENSI VE ([id number])Ordered By: Manager Clinical Services on 03-13-2023 Albumin [Mass/Vol] 4.1 g/dL Normal 3.8-4.8 [facility]; [facility] Work Phone: Albumin/Globulin [Mass ratio] 1.3 {ratio} Normal 1.2-2.2 [facility]; [facility] Work Phone: ALP [Catalytic activity/Vol] 107 U/L Normal 44-121 [facility]; [facility] Work Phone: ALT [Catalytic activity/Vol] 13 U/L Normal 0-32 [facility]; [facility] Work Phone: AST [Catalytic activity/Vol] 15 U/L Normal 0-40 [facility]; [facility] Work Phone: Bilirubin [Mass/Vol] 0.4 mg/dL Normal 0.0-1.2 [facility]; [facility] Work Phone: Calcium [Mass/Vol] 9.3 mg/dL Normal 8.7-10.3 [facility]; [facility] Work Phone: Chloride [Moles/Vol] 105 mmol/L Normal 96-106 [facility]; [facility] Work Phone: CO2 [Moles/Vol] 26 mmol/L Normal 20-29 [facility]; [facility] Work Phone: Creatinine [Mass/Vol] 0.62 mg/dL Normal 0.57-1.00 [facility] Work Phone: Globulin (S) [Mass/Vol] 3.2 g/dL Normal 1.5-4.5 [facility]; [facility] Work Phone: Glucose [Mass/Vol] 113 mg/dL Abnormal 70-99 [facility]; [facility] Work Phone: Potassium [Moles/Vol] 4.1 mmol/L Normal 3.5-5.2 [facility] Work Phone: Protein [Mass/Vol] 7.3 g/dL Normal 6.0-8.5 [facility]; [facility] Work Phone: Sodium [Moles/Vol] 145 mmol/L Abnormal 134-144 [facility]; [facility] Work Phone: Urea nitrogen [Mass/Vol] 16 mg/dL Normal 8-27 [facility]; [facility] Work Phone: Urea nitrogen/Creatinine [Mass ratio] 26 mg/mg Normal 12-28 [facility]; [facility] Work Phone: METABOLIC PANEL, [facility] ([id number]) 98 mL/min/1.73 Normal [facility]; [facility] Work Phone: MICROALBUMINOrdered By: [id number] [employer] Supervisor Quality Control on 03-13-2023 Albumin DL <= 20 mg/L (U) [Mass/Vol] 474.9 ug/mL Normal [facility]; [facility] Work Phone: Albumin/Creatinine (U) [Mass ratio] 243 {mg/g_creat} Abnormal 0-29 [facility]; [facility] Work Phone: Creatinine (U) [Mass/Vol] 195.2 mg/dL Normal [facility]; [facility] Work Phone: TSH ([id number])Ordered By: [employer] Supervisor Quality Control on 03-13-2023 TSH Qn 1.860 {uIU/mL} Normal 0.450-4.500 [facility]; [facility] Work Phone: URINALYSIS, W/ MICRO ([id number]) Ordered By: Manager Clinical Services on 03-13-2023 Appearance (U) Cloudy Abnormal [facility]; [facility] Work Phone: Bilirubin Ql (U) Negative Normal Compre[facility]; [facility] Work Phone: Color (U) Yellow Normal [facility]; [facility] Work Phone: Glucose Ql (U) Negative Normal [facility]; [facility] Work Phone: Hemoglobin Ql (U) Negative Normal Compre[facility]; [facility] Work Phone: Ketones Ql (U) Negative Normal [facility]; [facility] Work Phone: Leukocyte esterase Test strip Ql (U) Trace Abnormal [facility]; [facility] Work Phone: Microscopic observation LM Nom (Urine sed) See below: Normal [facility]; [facility] Work Phone: Nitrite Ql (U) Negative Normal [facility]; [facility] Work Phone: pH (U) 5.5 [pH] Normal 5.0-7.5 [facility]; [facility] Work Phone: Protein Ql (U) 2+ Abnormal [facility]; [facility] Work Phone: Specific gravity (U) [Rel density] 1.025 1 Normal 1.005-1.030 [facility]; [facility] Work Phone: Urobilinogen (U) [Mass/Vol] 1.0 mg/dL Normal 0.2-1.0 [facility]; [facility] Work Phone: Glucose Glucometer (BldC) [M ass/Vol]Ordered By: Dr. Benitez on 02-26-2023 Glucose [Mass/Vol] 189 mg/dL 74-106 [facility] Comment on above: MANAGEMENT OF PATIEN T CARE PER NURSING PROTOCOL Absolute lymphocyte countOrd ered By: Dr. Rosario on 02-24-2023 Lymphocytes Auto (Unsp spec) [#/Vol] 1.49 10*3/uL 0.83-4.51 [facility] Basophil percentageOrdered B y: Dr. Rosario on 02-24-2023 Basophils/100 WBC (Bld) 0.5 % 0-1 [facility] Eosinophils/100 WBC (Bld) 2.6 % 0-5 [facility] Neutrophils (Bld) [#/Vol] 7.8 10*3/uL 2.0-7.7 [facility] Neutrophils/100 WBC (Bld) 71.0 % 47-70 [facility] WBC (Bld) [#/Vol] 11.0 10*3/uL 4.4-11.0 [facility] Blood erythrocytes count (nu mber/volume)Ordered By: Dr. Rosario on 02-24-2023 RBC (Bld) [#/Vol] 3.80 10*6/uL 4.2-5.4 [facility] Blood hemoglobin measurement (mass/volume)Ordered By: Dr. Rosario on 02-24-2023 Hemoglobin (Bld) [Mass/Vol] 11.3 g/dL 12.0-15.0 [facility] Blood lymphocytes/100 leukoc ytesOrdered By: Dr. Rosario on 02-24-2023 Lymphocytes/100 WBC (Bld) 13.6 % 19-41 [facility] Blood monocytes/100 leukocyt esOrdered By: Dr. Rosario on 02-24-2023 Monocytes/100 WBC (Bld) 10.9 % 0-10 [facility] Blood platelet mean volumeOr dered By: Dr. Rosario on 02-24-2023 Platelet mean volume (Bld) [Entitic vol] 10.3 fL 6.2-12.0 [facility] Determination of erythrocyte mean corpuscular volume (MCV)Ordered By: Dr. Rosario on 02-24-2023 MCV (RBC) [Entitic vol] 93.4 fL 81-99 [facility] Hematocrit Auto (Bld) [Volum e fraction]Ordered By: Dr. Rosario on 02-24-2023 Hematocrit (Bld) [Volume fraction] 35.5 % 37-47 [facility] Laboratory - Hematology and Cell countsOrdered By: Dr. Rosario on 02-24-2023 Erythrocyte distribution width (RBC) [Entitic vol] 46.3 fL 35.1-43.9 [facility] Erythrocyte distribution width (RBC) [Ratio] 13.4 % 11.6-14.6 [facility] Immature granulocytes/100 WBC (Bld) 1.400 % 0.0-0.9 [facility] Comment on above: IG% - Immature Granu locytes (promyelocytes, myelocytes and metamyelocytes) > 1% indicates that a LEFT SHIFT is Present. MCH (RBC) [Entitic mass] 29.7 pg 27.0-32.0 [facility] Nucleated RBC/100 WBC (Bld) [Ratio] 0 % 0-5 [facility] MCHC Auto (RBC) [Mass/Vol]Or dered By: Dr. Rosario on 02-24-2023 MCHC (RBC) [Mass/Vol] 31.8 g/dL 32-36 [facility] Platelets bldOrdered By: Dr. Rosario on 02-24-2023 Platelets (Bld) [#/Vol] 234 10*3/uL 150-450 [facility] Whole blood hemoglobin A1c/t otal hemoglobin ratio (mass fraction)Ordered By: Dr. Rosario on 02-24-2023 HbA1c (Bld) [Mass fraction] 7.4 % 3.8-5.6 [facility] Comment on above: Normal < 5.7 % Predi abetic 5.7 - 6.4 % Diabetic >or= 6.5 % Please note range changes. Basophil percentageOrdered B y: Dr. Weiss on 02-23-2023 Bilirubin [Mass/Vol] 0.60 mg/dL 0.20-1.00 [facility] Comment on above: For patients on eltr ombopag therapy, use of Dimension [place] TBIL is not recommended. Chloride [Moles/Vol] 104 mmol/L 98-107 [facility] Glucose [Mass/Vol] 217 mg/dL 74-106 [facility] Comment on above: Glucose result great er than or equal to 200 mg/dLsuggests DIABETES MELLITUS per A.D.A. criteria. Lactate [Moles/Vol] 1.6 mmol/L 0.4-2.0 [facility] Potassium [Moles/Vol] 3.5 mmol/L 3.5-5.1 [facility] Protein [Mass/Vol] 7.3 g/dL 6.4-8.2 [facility] Sodium [Moles/Vol] 140 mmol/L 136-145 [facility] COVID-19 virus antigen assay Ordered By: Dr. Rosario on 02-23-2023 SARS-CoV-2 (COVID-19) Ag IA.rapid Ql (Resp) [facility] Laboratory - Chemistry and C hemistry - challengeOrdered By: Dr. Weiss on 02-23-2023 ALP [Catalytic activity/Vol] 133 U/L 45-117 [facility] ALT [Catalytic activity/Vol] 26 U/L 13-56 [facility] CO2 [Moles/Vol] 30.0 mmol/L 21.0-32.0 [facility] Globulin (S) [Mass/Vol] 4.6 g/dL 2.2-4.2 [facility] Urea nitrogen/Creatinine [Mass ratio] 23.5 mg/mg 10-20 [facility] No Panel InformationOrdered By: Misha Rosario on 02-23-2023 Streptococcus pneumoniae Antigen (M [facility] No Panel InformationOrdered By: Dr. Weiss on 02-23-2023 Estimated Creatinine Clearance Calc 49.12 ml/min [facility] Estimated GFR (MDRD) Amer 111 mL/min >60 [facility] Comment on above: GFR Calc Estimated GFR (MDRD) Non-Af Amer 92 mL/min >60 [facility] Comment on above: Non- GFR Calc No Panel InformationOrdered By: Dr. Rosario on 02-23-2023 Streptococcus pneumoniae Antigen (M [facility] Respiratory pathogens detect ion panel by molecular detection methodOrdered By: Misha Rosario on 02-23-2023 Respiratory pathogens DNA and RNA panel ARIANNA+probe (Resp) [facility] Respiratory pathogens detect ion panel by molecular detection methodOrdered By: Dr. Rosario on 02-23-2023 Respiratory pathogens DNA and RNA panel ARIANNA+probe (Resp) [facility] Serum or plasma albumin robbi urement (mass/volume)Ordered By: Dr. Weiss on 02-23-2023 Albumin [Mass/Vol] 2.7 g/dL 3.2-5.0 [facility] Serum or plasma albumin/glob ulin mass ratioOrdered By: Dr. Weiss on 02-23-2023 Albumin/Globulin [Mass ratio] 0.6 {ratio} 0.9-2.4 [facility] Serum or plasma calcium robbi urement (mass/volume)Ordered By: Dr. Weiss on 02-23-2023 Calcium [Mass/Vol] 9.3 mg/dL 8.5-10.1 [facility] Serum or plasma creatinine m easurement (mass/volume)Ordered By: Dr. Weiss on 02-23-2023 Creatinine [Mass/Vol] 0.68 mg/dL 0.55-1.02 [facility] Comment on above: The validity of the calculated GFR & GFRAA in patients over 70 years has not been determined. Clinical correlation is essential. Serum or plasma urea nitroge n measurement (mass/volume)Ordered By: Dr. Weiss on 02-23-2023 Urea nitrogen [Mass/Vol] 16 mg/dL 7-18 [facility] Thin prep Papanicolaou smear with manual screeningOrdered By: Dr. Weiss on 02-23-2023 Thin prep Papanicolaou smear with manual screening 28 U/L 15 [facility] Thin prep Papanicolaou smear with manual screening 6 5-15 [facility] No Panel Informationon 06-01 Hepatitis C Antibody Non-Reactive Nonreactive [facility] Work Phone: Comment on above: Non Reactive: < 0.8 Equivocal: >/= 0.8 to < 1.0 Reactive: >/= 1.0The CDC recommends that a reactive/equivocal HCV antibody result be followed up by the HCV Nucleic Acid Amplificationtest (653594) Laboratory - Hematology and Cell countson 04-26-2022 HbA1c (Bld) [Mass fraction] 6.8 % [facility] Work Phone: Blood Glucose , Office ([phone])Ordered By: Tracy Kapadia on 01-08-2022 Glucose Glucometer (BldC) [Moles/Vol] 133 1 Normal [facility]; [facility] Work Phone: CALCIFEDIOL ([phone])Ordered B y: Manager Clinical Services on 01-08-2022 25-hydroxyvitamin D [Mass/Vol] 25.4 ng/mL Abnormal 30.0-100.0 [facility]; [facility] Work Phone: CBC W/AUTO DIFF WBC ([phone])O rdered By: Manager Clinical Services on 01-08-2022 Basophils (Bld) [#/Vol] 0.0 10*3/uL Normal 0.0-0.2 [facility]; [facility] Work Phone: Basophils/100 WBC (Bld) 1 % Normal [facility]; [facility] Work Phone: Eosinophils (Bld) [#/Vol] 0.1 10*3/uL Normal 0.0-0.4 [facility]; [facility] Work Phone: Eosinophils/100 WBC (Bld) 2 % Normal [facility]; [facility] Work Phone: Erythrocyte distribution width (RBC) [Ratio] 12.8 % Normal 11.7-15.4 [facility]; [facility] Work Phone: Hematocrit (Bld) [Volume fraction] 43.2 % Normal 34.0-46.6 [facility]; [facility] Work Phone: Hemoglobin (Bld) [Mass/Vol] 14.5 g/dL Normal 11.1-15.9 [facility]; [facility] Work Phone: Immature granulocytes (Bld) [#/Vol] 0.0 10*3/uL Normal 0.0-0.1 [facility]; [facility] Work Phone: Immature granulocytes/100 WBC (Bld) 0 % Normal [facility]; [facility] Work Phone: Lymphocytes (Bld) [#/Vol] 1.9 10*3/uL Normal 0.7-3.1 [facility]; [facility] Work Phone: Lymphocytes/100 WBC (Bld) 27 % Normal [facility]; [facility] Work Phone: MCH (RBC) [Entitic mass] 30.5 pg Normal 26.6-33.0 [facility]; [facility] Work Phone: MCHC (RBC) [Mass/Vol] 33.6 g/dL Normal 31.5-35.7 [facility] prehensive Internal Medicine; [facility] Work Phone: MCV (RBC) [Entitic vol] 91 fL Normal 79-97 [facility]; [facility] Work Phone: Monocytes (Bld) [#/Vol] 0.5 10*3/uL Normal 0.1-0.9 [facility]; [facility] Work Phone: Monocytes/100 WBC (Bld) 8 % Normal [facility]; [facility] Work Phone: Neutrophils (Bld) [#/Vol] 4.3 10*3/uL Normal 1.4-7.0 [facility]; [facility] Work Phone: Neutrophils/100 WBC (Bld) 62 % Normal [facility]; [facility] Work Phone: Platelets (Bld) [#/Vol] 207 10*3/uL Normal 150-450 [facility]; [facility] Work Phone: RBC (Bld) [#/Vol] 4.76 10*6/uL Normal 3.77-5.28 [facility] Work Phone: WBC (Bld) [#/Vol] 7.0 10*3/uL Normal 3.4-10.8 [facility]; [facility] Work Phone: HgA1C , Office ([phone])Ordere d By: Tracy Kapadia on 01-08-2022 HbA1c (Bld) [Mass fraction] 8.0 % Abnormal 4.6 - 7.1 [facility]; [facility] Work Phone: LIPID PANEL ([phone])Ordered B y: Manager Clinical Services on 01-08-2022 Cholesterol [Mass/Vol] 163 mg/dL Normal 100-199 [facility]; [facility] Work Phone: Cholesterol in HDL [Mass/Vol] 46 mg/dL Normal [facility]; [facility] Work Phone: Triglyceride [Mass/Vol] 178 mg/dL Abnormal 0-149 [facility]; [facility] Work Phone: LIPID PANEL ([id number]) 30 mg/dL Normal 5-40 [facility]; [facility] Work Phone: LIPID PANEL ([id number]) 87 mg/dL Normal 0-99 Compr ensive [facility]; [facility] Work Phone: LIPID PANEL ([phone]) 1.9 {ratio} Normal 0.0-3.2 [facility] Internal [facility]; [facility] Work Phone: METABOLIC PANEL, COMPREHENSI VE ([phone])Ordered By: Manager Clinical Services on 01-08-2022 Albumin [Mass/Vol] 4.4 g/dL Normal 3.8-4.8 [facility] Internal [facility]; [facility] Work Phone: Albumin/Globulin [Mass ratio] 1.6 {ratio} Normal 1.2-2.2 [facility]; [facility] Work Phone: ALP [Catalytic activity/Vol] 101 U/L Normal 44-121 [facility]; [facility] Work Phone: ALT [Catalytic activity/Vol] 13 U/L Normal 0-32 [facility]; [facility] Work Phone: AST [Catalytic activity/Vol] 14 U/L Normal 0-40 [facility]; [facility] Work Phone: Bilirubin [Mass/Vol] 0.5 mg/dL Normal 0.0-1.2 [facility]; [facility] Work Phone: Calcium [Mass/Vol] 9.2 mg/dL Normal 8.7-10.3 [facility]; [facility] Work Phone: Chloride [Moles/Vol] 100 mmol/L Normal 96-106 [facility]; [facility] Work Phone: CO2 [Moles/Vol] 26 mmol/L Normal 20-29 [facility]; [facility] Work Phone: Creatinine [Mass/Vol] 0.55 mg/dL Abnormal 0.57-1.00 [facility]; [facility] Work Phone: Globulin (S) [Mass/Vol] 2.8 g/dL Normal 1.5-4.5 [facility]; [facility] Work Phone: Glucose [Mass/Vol] 140 mg/dL Abnormal 65-99 [facility]; [facility] Work Phone: Potassium [Moles/Vol] 3.8 mmol/L Normal 3.5-5.2 [facility] prehensive Internal Medicine; [facility] Work Phone: Protein [Mass/Vol] 7.2 g/dL Normal 6.0-8.5 [facility]; [facility] Work Phone: Sodium [Moles/Vol] 143 mmol/L Normal 134-144 [facility]; [facility] Work Phone: Urea nitrogen [Mass/Vol] 14 mg/dL Normal 8-27 [facility]; [facility] Work Phone: Urea nitrogen/Creatinine [Mass ratio] 25 mg/mg Normal 12-28 [facility]; [facility] Work Phone: METABOLIC PANEL, COMPREHENSIVE ([id number]) 101 mL/min/1.73 Normal Comprehens [facility]; [facility] Work Phone: MICROALBUMINOrdered By: Syst em Supervisor Quality Control on 01-08-2022 Albumin DL <= 20 mg/L (U) [Mass/Vol] 470.5 ug/mL Normal [facility]; [facility] Work Phone: Albumin/Creatinine (U) [Mass ratio] 363 {mg/g_creat} Abnormal 0-29 [facility]; [facility] Work Phone: Creatinine (U) [Mass/Vol] 129.7 mg/dL Normal [facility]; [facility] Work Phone: TSH ([phone])Ordered By: Syste m Supervisor Quality Control on 01-08-2022 TSH Qn 1.250 {uIU/mL} Normal 0.450-4.500 [facility]; [facility] Work Phone: URINALYSIS, W/ MICRO ([phone]) Ordered By: Manager Clinical Services on 01-08-2022 Appearance (U) Clear Normal Comprehens [facility]; [facility] Work Phone: Bilirubin Ql (U) Negative Normal Comprehe nsive [facility] Medicine; [facility] Work Phone: Color (U) Yellow Normal [facility]; [facility] Work Phone: Glucose Ql (U) Negative Normal Comprehens [facility]; [facility] Work Phone: Hemoglobin Ql (U) Negative Normal Compreh ensive Internal Medicine; [facility] Work Phone: Ketones Ql (U) Trace Abnormal Comprehens [facility]; [facility] Work Phone: Leukocyte esterase Test strip Ql (U) Negative Normal [facility]; [facility] Work Phone: Microscopic observation LM Nom (Urine sed) See below: Normal [facility]; [facility] Work Phone: Nitrite Ql (U) Negative Normal Comprehens [facility]; [facility] Work Phone: pH (U) 6.5 [pH] Normal 5.0-7.5 [facility]; [facility] Work Phone: Protein Ql (U) 2+ Abnormal Comprehens [facility]; [facility] Work Phone: Specific gravity (U) [Rel density] 1.019 1 Normal 1.005-1.030 [facility]; [facility] Work Phone: Urobilinogen (U) [Mass/Vol] 1.0 mg/dL Normal 0.2-1.0 [facility]; [facility] Work Phone: Blood Glucose , Office ([phone])Ordered By: Krissy Ambrosio on 03-20-2021 Glucose Glucometer (BldC) [Moles/Vol] 161 1 Normal [facility]; [facility] Work Phone: HgA1C , Office ([phone])Ordere d By: Krissy Ambrosio on 03-20-2021 HbA1c (Bld) [Mass fraction] 8.6 % Abnormal 4.6 - 7.1 [facility]; [facility] Work Phone: CALCIFIDIOL ([phone]) VIT D 25 Ordered By: Manager Clinical Services on 03-06-2021 25-hydroxyvitamin D [Mass/Vol] 32.8 ng/mL Normal 30.0-100.0 [facility]; [facility] Work Phone: Comment on above: Vitamin D deficiency has been defined by the [place] of[place] and an Endocrine Society practice guideline as alevel of serum 25-OH vitamin D less than 20 ng/mL (1,2).The Endocrine Society went on to further define vitamin Dinsufficiency as a level between 21 and 29 ng/mL (2).1. IOM ([place]). 2010. Dietary reference intakes for calcium and D. [place]: The National Academies Press.2. Jenna MF, Melissa HANSEN, Faraz DOWD, et al. Evaluation, treatment, and prevention of vitamin D deficiency: an Endocrine Society clinical practice guideline. JCEM. 2010; 96(7):1911-30. Test(s) 587585-CEH-S ; 119144-EJU-A; 860877-Eodolmuiproni; 900382-Qkoaqepkcuo, Total; 514862-BMC-S (Total); 752829-Jzmfz LDL-P; 824718-AUG Size; 752033-IC-CM Scorewas developed and its performance characteristics determinedby [employer]. It has not been cleared or approved by the Foodand Drug Administration.PATIENT WAS FASTINGPERFORMED BY: [facility] [address] [id number] BY: [facility] Vfanov5805 [facility] [id number] METABOLIC PANEL, COMPREHENSI VE ([id number])Ordered By: Manager Clinical Services on 03-06-2021 Albumin [Mass/Vol] 4.4 g/dL Normal 3.8-4.8 [facility]; [facility] Work Phone: Comment on above: Test(s) 279037-ULY-Q ; 197114-SBT-N; 692234-Wobqfevjuxaxi; 989863-Ensavrogjkj, Total; 345608-GKM-R (Total); 694493-Pdyjl LDL-P; 667337-JXW Size; 057093-AB-WE Scorewas developed and its performance characteristics determinedby [employer]. It has not been cleared or approved by the Foodand Drug Administration.PATIENT WAS FASTINGPERFORMED BY: [employer] [id number] BY: [facility]iticsNewton Medical CenterGpafit9513 [facility] [id number] Albumin/Globulin [Mass ratio] 1.7 {ratio} Normal 1.2-2.2 [facility]; [facility] Work Phone: Comment on above: Test(s) 676200-VMO-P ; 584930-UMA-Q; 528229-Kxrmqbtunlohd; 231805-Quyjgnalkxg, Total; 277041-AFI-S (Total); 209853-Rrsny LDL-P; 539149-QYB Size; 515950-ZV-DW Scorewas developed and its performance characteristics determinedby [employer]. It has not been cleared or approved by the Foodand Drug Administration.PATIENT WAS FASTINGPERFORMED BY: [employer] [address] [id number] BY: [employer] Btwzbx4986 [facility] [id number] ALP [Catalytic activity/Vol] 112 U/L Normal 48-121 [facility]; [facility] Work Phone: Comment on above: Test(s) 785077-ZSG-I ; 599779-VUW-F; 403930-Tacfkvsilltgb; 036925-Olthxrihpan, Total; 950630-UAT-U (Total); 591490-Xdjad LDL-P; 004284-QDW Size; 434513-EB-EJ Scorewas developed and its performance characteristics determinedby [employer]. It has not been cleared or approved by the Foodand Drug Administration.PATIENT WAS FASTINGPERFORMED BY: [employer] [id number] BY: [facility]iticsNewton Medical CenterGbubwl3407 [facility] [id number] ALT [Catalytic activity/Vol] 9 U/L Normal 0-32 [facility]; [facility] Work Phone: Comment on above: Test(s) 314619-RAB-M ; 192976-PRB-I; 255630-Ggadzcjnfggio; 057593-Whkfexhgxux, Total; 762695-VMP-E (Total); 555860-Rdiex LDL-P; 249917-PVK Size; 223628-PY-US Scorewas developed and its performance characteristics determinedby [employer]. It has not been cleared or approved by the Foodand Drug Administration.PATIENT WAS FASTINGPERFORMED BY: [employer] [address] [id number] BY: [employer]6370 [facility] [id number] AST [Catalytic activity/Vol] 12 U/L Normal 0-40 [facility]; [facility] Work Phone: Comment on above: Test(s) 455740-WRB-J ; 494722-WPS-J; 478482-Pvdfufdfdiciz; 587533-Nwmovxfxjrh, Total; 296229-HCO-J (Total); 235151-Iermu LDL-P; 774527-VET Size; 186560-KL-ZG Scorewas developed and its performance characteristics determinedby [employer]. It has not been cleared or approved by the Foodand Drug Administration.PATIENT WAS FASTINGPERFORMED BY: [employer] [address] [id number] BY: [employer]6370 [facility] [id number] Bilirubin [Mass/Vol] 0.4 mg/dL Normal 0.0-1.2 [facility]; [facility] Work Phone: Comment on above: Test(s) 245669-ENC-P ; 084738-ZHC-Y; 617119-Bpzamhuowcdeo; 070370-Qhllwageyfs, Total; 064644-BIH-Q (Total); 970811-Mwhup LDL-P; 975270-MHC Size; 774771-HY-FX Scorewas developed and its performance characteristics determinedby [employer]. It has not been cleared or approved by the Foodand Drug Administration.PATIENT WAS FASTINGPERFORMED BY: [employer] [address] [id number] BY: [employer] Kbrzyu2470 [facility] [id number] Calcium [Mass/Vol] 9.1 mg/dL Normal 8.7-10.3 [facility]; [facility] Work Phone: Comment on above: Test(s) 725360-QKE-M ; 140606-ZVQ-U; 148996-Bpiovltfsywtm; 418426-Ydafslfubqm, Total; 201420-ETD-F (Total); 924526-Ikcjt LDL-P; 112625-EOA Size; 987582-BE-WI Scorewas developed and its performance characteristics determinedby [employer]. It has not been cleared or approved by the Foodand Drug Administration.PATIENT WAS FASTINGPERFORMED BY: [employer] [address] [id number] BY: [employer]6370 [facility] [id number] Chloride [Moles/Vol] 102 mmol/L Normal 96-106 [facility]; [facility] Work Phone: Comment on above: Test(s) 588960-KXB-D ; 265240-NOK-T; 105815-Fimtotazvbpyg; 671147-Ukkykwmulqr, Total; 673176-QIN-E (Total); 147882-Ymykg LDL-P; 244816-NMD Size; 774947-ZX-YZ Scorewas developed and its performance characteristics determinedby [employer]. It has not been cleared or approved by the Foodand Drug Administration.PATIENT WAS FASTINGPERFORMED BY: [employer] [address] [id number] BY: [employer] Bozzwe2387 [facility] [id number] CO2 [Moles/Vol] 26 mmol/L Normal 20-29 [facility]; [facility] Work Phone: Comment on above: Test(s) 509939-SQH-C ; 193098-RIF-N; 794540-Yhtrtxlmmeili; 530727-Ddulppcpbjg, Total; 453543-RHJ-J (Total); 946938-Tflkv LDL-P; 749449-VYX Size; 319361-CJ-CX Scorewas developed and its performance characteristics determinedby [employer]. It has not been cleared or approved by the Foodand Drug Administration.PATIENT WAS FASTINGPERFORMED BY: [employer] [id number] BY: [facility]iticsNewton Medical CenterAeubwy3695 [facility] [id number] Creatinine [Mass/Vol] 0.62 mg/dL Normal 0.57-1.00 [facility] prehensive Internal Medicine; [facility] Work Phone: Comment on above: Test(s) 686849-RLH-S ; 012514-RSZ-J; 556388-Jfywkxygpjxvn; 761379-Myyejrfrmmm, Total; 175468-NSE-K (Total); 271378-Rxyle LDL-P; 089319-SVI Size; 902981-QS-FU Scorewas developed and its performance characteristics determinedby [employer]. It has not been cleared or approved by the Foodand Drug Administration.PATIENT WAS FASTINGPERFORMED BY: [facility] [address] [id number] BY: [facility]iticsNewton Medical CenterEuotol7815 [facility] [id number] GFR/1.73 sq M.predicted among blacks CKD-EPI (S/P/Bld) [Vol rate/Area] 109 mL/min/1.73 Normal [facility]; [facility] Work Phone: Comment on above: [facility] currently reports eGFR in compliance with the current recommendations of the National Kidney Foundation. [facility] will update reporting as new guidelines are published from the NKF-ASN Task force. Test(s) 559890-MRA-U ; 662284-YCP-J; 630854-Dmilwaksgyajy; 485742-Poalmvuvegs, Total; 164191-GMA-W (Total); 667922-Pyrno LDL-P; 656733-FJJ Size; 954833-WF-SN Scorewas developed and its performance characteristics determinedby [employer]. It has not been cleared or approved by the Foodand Drug Administration.PATIENT WAS FASTINGPERFORMED BY: [employer] [address] [id number] BY: [employer] Egqtob8991 [facility] [id number] GFR/1.73 sq M.predicted among non-blacks CKD-EPI (S/P/Bld) [Vol rate/Area] 95 mL/min/1.73 Normal [facility]; [facility] Work Phone: Comment on above: Test(s) 283009-MFI-L ; 394528-YIA-K; 270926-Xwtvocnpdrwnq; 446306-Ktxjjynqwfg, Total; 595844-YEN-R (Total); 035903-Xatrd LDL-P; 689899-VMZ Size; 848599-SO-IA Scorewas developed and its performance characteristics determinedby [employer]. It has not been cleared or approved by the Foodand Drug Administration.PATIENT WAS FASTINGPERFORMED BY: [employer] [address] [id number] BY: [employer]6370 [facility] [id number] Globulin (S) [Mass/Vol] 2.6 g/dL Normal 1.5-4.5 [facility]; [facility] Work Phone: Comment on above: Test(s) 873635-EGC-O ; 501940-NFJ-B; 711642-Bmasqfcpqvsww; 465158-Qofferzbzek, Total; 881287-CPM-Y (Total); 277751-Hzhei LDL-P; 564839-HBI Size; 789698-PQ-AY Scorewas developed and its performance characteristics determinedby [employer]. It has not been cleared or approved by the Foodand Drug Administration.PATIENT WAS FASTINGPERFORMED BY: [employer] [address] [id number] BY: [facility] Nrxhni9439 [facility] [id number] Glucose [Mass/Vol] 183 mg/dL Abnormal 65-99 [facility]; [facility] Work Phone: Comment on above: Test(s) 057047-JQT-C ; 940530-NKY-W; 157594-Fiybmftlsumun; 966636-Dwgxxklmfgm, Total; 818141-NJL-S (Total); 186098-Svrdy LDL-P; 758855-QJG Size; 786200-PH-IJ Scorewas developed and its performance characteristics determinedby [employer]. It has not been cleared or approved by the Foodand Drug Administration.PATIENT WAS FASTINGPERFORMED BY: [employer] [address] [id number] BY: [employer] Direct6370 [facility] Medical[facility] [id number] Potassium [Moles/Vol] 4.0 mmol/L Normal 3.5-5.2 [facility]; [facility] Work Phone: Comment on above: Test(s) 691074-AJQ-V ; 628270-LKA-Y; 651886-Ojndqpgebwjac; 370936-Plyjnwidktw, Total; 824540-ASP-S (Total); 864133-Kwmae LDL-P; 171761-EKP Size; 707299-RD-KH Scorewas developed and its performance characteristics determinedby [employer]. It has not been cleared or approved by the Foodand Drug Administration.PATIENT WAS FASTINGPERFORMED BY: [employer] [address] [id number] BY: [employer]6370 [facility] [id number] Protein [Mass/Vol] 7.0 g/dL Normal 6.0-8.5 [facility] Internal Medicine; [facility] Work Phone: Comment on above: Test(s) 556741-RVW-B ; 225981-WPF-P; 592990-Dqdvipbbehkqi; 623202-Ahvqzstsdxu, Total; 517641-PMU-W (Total); 653973-Jyzup LDL-P; 697136-LJN Size; 422576-RL-HF Scorewas developed and its performance characteristics determinedby [employer]. It has not been cleared or approved by the Foodand Drug Administration.PATIENT WAS FASTINGPERFORMED BY: [employer] [address] [id number] BY: Olista Lrpokq0636 [facility] [id number] Sodium [Moles/Vol] 143 mmol/L Normal 134-144 [facility] Internal Medicine; [facility] Work Phone: Comment on above: Test(s) 031900-PDY-P ; 568720-AUK-W; 696788-Zzknlctqlceeq; 442976-Fpzjampwdum, Total; 757173-UUW-R (Total); 098440-Riahq LDL-P; 947560-TTZ Size; 901257-DU-WA Scorewas developed and its performance characteristics determinedby [employer]. It has not been cleared or approved by the Foodand Drug Administration.PATIENT WAS FASTINGPERFORMED BY: BeatSwitch[address] [id number] BY: Fresh Direct6370 [facility] [id number] Urea nitrogen [Mass/Vol] 17 mg/dL Normal 8-27 [facility]; [facility] Work Phone: Comment on above: Test(s) 405030-FVQ-A ; 013764-ANV-G; 488312-Zvuqpvndvukfq; 383398-Nxwltyphzsf, Total; 656534-ZJN-P (Total); 948730-Vzztm LDL-P; 840556-JER Size; 531308-VF-XB Scorewas developed and its performance characteristics determinedby [employer]. It has not been cleared or approved by the Foodand Drug Administration.PATIENT WAS FASTINGPERFORMED BY: [employer] [address] [id number] BY: Olista Lasckx6832 [facility] [id number] Urea nitrogen/Creatinine [Mass ratio] 27 mg/mg Normal 12-28 [facility]; [facility] Work Phone: Comment on above: Test(s) 072457-LJR-J ; 986837-GRL-T; 328161-Ypmhswfrpirds; 461176-Ztbripqysbw, Total; 180202-YJH-Y (Total); 488026-Qnzfu LDL-P; 641926-THH Size; 392503-BS-GK Scorewas developed and its performance characteristics determinedby [employer]. It has not been cleared or approved by the Foodand Drug Administration.PATIENT WAS FASTINGPERFORMED BY: [employer] [address] [id number] BY: Appreciation Engine70 [facility] [id number] NMR Profile (53098)Ordered B y: Manager Clinical Services on 03-06-2021 Cholesterol [Mass/Vol] 187 mg/dL Normal 100-199 [facility] Internal Medicine; [facility] Work Phone: Comment on above: Test(s) 930391-URH-I ; 591943-VBK-U; 360962-Kzzrfqxhzcgwa; 489067-Yqvvibyxwvb, Total; 355109-ZIA-Q (Total); 269248-Akzga LDL-P; 859794-KWY Size; 310538-OE-NY Scorewas developed and its performance characteristics determinedby [employer]. It has not been cleared or approved by the Foodand Drug Administration.PATIENT WAS FASTINGPERFORMED BY: [employer] [address] [id number] BY: Wami6370 [facility] [id number] Information: ADD CBC 948769 Lipoprotein.alpha [Moles/Vol] 34.9 umol/L Normal [facility]; [facility] Work Phone: Comment on above: Test(s) 161914-LQE-E ; 366043-PXU-S; 187728-Ujczklmmstozh; 190732-Vztekfhvixh, Total; 108218-ROZ-G (Total); 305983-Jadtm LDL-P; 287379-KZH Size; 821690-OO-AM Scorewas developed and its performance characteristics determinedby [employer]. It has not been cleared or approved by the Foodand Drug Administration.PATIENT WAS FASTINGPERFORMED BY: BN LabCo[address] [id number] BY: [place] 7510470 [facility] [id number] Information: ADD CBC 925259 Lipoprotein.beta.subpa rticle [Entitic length] 19.9 nm Abnormal [facility]; [facility] Work Phone: Comment on above: INTERPRETATIVE INFORMATION PARTICLE CONCENTRATION AND SIZE <--Lower CVD Risk Higher CVD Risk--> LDL AND HDL PARTICLES Percentile in Reference Population HDL-P (total) High 75th 50th 25th Low >34.9 34.9 30.5 26.7 <26.7 . Small LDL-P Low 25th 50th 75th High <117 117 527 839 >839 . LDL Size <-Large (Pattern A)-> <-Small (Pattern B)-> 23.0 20.6 20.5 19.0 Small LDL-P and LDL Size are associated with CVD risk, but not afterLDL-P is taken into account. Test(s) 833743-JCK-U ; 681581-NFC-Q; 091683-Iwskokliuyaaw; 888441-Sgxasmfuwlm, Total; 113340-MJV-R (Total); 642341-Vcehb LDL-P; 061557-XJQ Size; 123052-UA-QD Scorewas developed and its performance characteristics determinedby [employer]. It has not been cleared or approved by the Foodand Drug Administration.PATIENT WAS FASTINGPERFORMED BY: Cogn[employer]ics[address] [id number] BY: Dreamerz FoodsScheurer Hospital6370 [facility] [id number] Information: ADD CBC 704632 Lipoprotein.beta.subpa rticle [Moles/Vol] 1336 nmol/L Abnormal [facility]; [facility] Work Phone: Comment on above: Low < 1000 Moderate 1000 - 1299 Borderline-High 1300 - 1599 High 1600 - 2000 Very High > 2000 Test(s) 000841-LLX-N ; 444000-TWL-D; 913132-Nljtipzpmgshv; 284384-Jpjxvbvygls, Total; 665730-AKI-T (Total); 155155-Spzkc LDL-P; 106078-FPE Size; 284861-CV-MY Scorewas developed and its performance characteristics determinedby [employer]. It has not been cleared or approved by the Foodand Drug Administration.PATIENT WAS FASTINGPERFORMED BY: [employer] [address] [id number] BY: IntelclinicSt. [facility] [id number] Information: ADD CBC 522254 Lipoprotein.beta.subpa rticle.small [Moles/Vol] 918 nmol/L Abnormal [facility]; [facility] Work Phone: Comment on above: Test(s) 626154-EHR-B ; 866555-UJM-V; 929637-Mbvbvctavsovx; 590442-Wnjqyknnpaw, Total; 343757-VJK-N (Total); 530929-Jbnai LDL-P; 248541-VWV Size; 991646-DU-EW Scorewas developed and its performance characteristics determinedby [employer]. It has not been cleared or approved by the Foodand Drug Administration.PATIENT WAS FASTINGPERFORMED BY: [employer] [address] [id number] BY: [employer] [facility] [id number] Information: ADD CBC 018674 Triglyceride [Mass/Vol] 258 mg/dL Abnormal 0-149 [facility]; [facility] Work Phone: Comment on above: Test(s) 156429-RKL-R ; 598540-DYE-U; 578451-Wyeynadwwzbhx; 577344-Ffnszbrubft, Total; 747750-PHW-D (Total); 909903-Jcciu LDL-P; 707190-OJZ Size; 597148-OH-OK Scorewas developed and its performance characteristics determinedby [employer]. It has not been cleared or approved by the Foodand Drug Administration.PATIENT WAS FASTINGPERFORMED BY: Cognitics[address] [id number] BY: Trinity Health System [facility] CampusWeemba[address] [id number] Information: ADD CBC 590050 NMR Profile (90254) 102 mg/dL Abnormal 0-99 [facility] Internal Medicine; [facility] Work Phone: Comment on above: . Optimal < 100 Abov e optimal 100 - 129 Borderline 130 - 159 High 160 - 189 Very high > 189 . Test(s) 986906-DAB-J ; 162385-CKO-F; 622284-Muhnqjlezfyqd; 573524-Oawhiidzyav, Total; 394893-GJQ-P (Total); 927353-Jdyxb LDL-P; 778186-OHG Size; 404363-JC-OJ Scorewas developed and its performance characteristics determinedby [employer]. It has not been cleared or approved by the Foodand Drug Administration.PATIENT WAS FASTINGPERFORMED BY: Cognitics[address] [id number] BY: CogniticsMichael Ville 3605570 [facility] [id number] Information: ADD CBC 958823 NMR Profile (52394) 41 mg/dL Normal [facility]pr [facility]; [facility] Work Phone: Comment on above: Test(s) 571885-VIB-N ; 877034-XRK-V; 971754-Wdhujtflyawas; 797365-Kwyliztpiuc, Total; 443415-KFI-Z (Total); 994656-Hepct LDL-P; 202317-PYH Size; 282426-BD-AZ Scorewas developed and its performance characteristics determinedby [employer]. It has not been cleared or approved by the Foodand Drug Administration.PATIENT WAS FASTINGPERFORMED BY: Cognitics64 Harvey StreetBurlington [place] [id number] BY: CODY CogniticsNewton Medical CenterGnyojs5911 [facility] [id number] Information: ADD CBC 952688 NMR Profile (20509) 258 mg/dL Abnormal 0-149 Compr ens[facility] Internal Medicine; [facility] Work Phone: NMR Profile (59039) 187 mg/dL Normal 100-199 [facility] Internal Medicine; [facility] Work Phone: TSH (67960)Ordered By: Alec kaminski Supervisor Quality Control on 03-06-2021 TSH Qn 2.780 {uIU/mL} Normal 0.450-4.500 [facility] Internal Medicine; [facility] Work Phone: Comment on above: Test(s) 014851-LJX-Q ; 839169-MJC-E; 437493-Cmdklibqokohr; 676755-Hpewwvutbsk, Total; 063469-LLJ-L (Total); 226673-Ymoth LDL-P; 249395-ETK Size; 188355-JV-UB Scorewas developed and its performance characteristics determinedby [employer]. It has not been cleared or approved by the Foodand Drug Administration.PATIENT WAS FASTINGPERFORMED BY: [facility] [address] [id number] BY: CODY [employer] Mlzjbh0659 [facility] [id number] ONEIDAOVharjinder 03-02-2021 [facility] Office Visit (UCWSTR ) ERIN LAWRENCE ([id number]) 1955 F Date Time Provider Department 03/02/21 6:00 PM NORMAN PERLA [facility] During your visit today, we recorded the following information about you: Temperature Pulse Respiration Blood pressure 97.6 degrees 72/minute 18/minute 146/86 Weight 80.1 kg Norman KingLISA.BENEFITS SPECIALIST RECRUITER 03/02/2021 6:54 PM Signed Subjective HPI HPI Erin Lawrence is a 66 year old female who presents today for CC of dizziness and indigestion. This started during night last night. Denies chest pain .Patient presents with: Dizziness: dizzy spells and indigestion-symptoms started today History reviewed. No pertinent past medical history. No past surgical history on file. ALLERGIES Patient has no known allergies. MEDICATIONS amLODIPine (NORVASC) 5 mg tablet Take 5 mg by mouth once daily. levothyroxine (SYNTHROID) 50 mcg tablet TAKE 1 TABLET BY MOUTH DAILY on an empty stomach metFORMIN ER (GLUCOPHAGE XR) 500 mg 24 hr tablet Take 2,000 mg by mouth once daily. rosuvastatin (CRESTOR) 10 mg tablet Take 10 mg by mouth daily at bedtime. EFFEXOR XR 150 MG 24 HR CAP Take one(1) tablet daily. FAMILY HISTORY Problem Relation Age of Onset - None Mother - other (unknown [Other]) Father Social History Tobacco Use - Smoking status: Never Smoker - Smokeless tobacco: Never Used Substance Use Topics - Alcohol use: No - Drug use: No ROS Objective Blood pressure 146/86, pulse 72, temperature 36.4 ?C (97.6 ?F), temperature source Tympanic, resp. rate 18, weight 80.1 kg (176 lb 9.6 oz), SpO2 96 %. Physical Exam Constitutional: General: She is not in acute distress. Appearance: She is not toxic-appearing or diaphoretic. HENT: Head: Normocephalic and atraumatic. Right Ear: Hearing, tympanic membrane, ear canal and external ear normal. Left Ear: Hearing, tympanic membrane, ear canal and external ear normal. Cardiovascular: Rate and Rhythm: Normal rate and regular rhythm. Heart sounds: Normal heart sounds, S1 normal and S2 normal. Pulmonary: Effort: Pulmonary effort is normal. Breath sounds: Normal breath sounds. Neurological: Mental Status: She is alert and oriented to person, place, and time. Gait: Gait is intact. ASSESSMENT/PLAN: 1. Dizziness - ICD9: 780.4, ICD10: R42 Concerns that it is accompanying indigestion. I will refer to ER. Family will drive pov to [facility] ER Patient declines squad. Norman Perla APRN.BENEFITS SPECIALIST RECRUITER Referring Provider: SELF [200] Allergies As of Date: 03/02/2021 (No Known Allergies) Date Reviewed: 03/02/2021 Reviewed by: Janki Melgoza LPN - Fully Assessed Reason for Visit: Dizziness [36] Cmt: dizzy spells and indigestion-symptoms started today Primary Visit Diagnosis:Dizziness [R42] Prescriptions as of 03/02/2021 Sig: AMLODIPINE 5 MG TABLET Take 5 mg by mouth once daily. LEVOTHYROXINE 50 MCG TABLET TAKE 1 TABLET BY MOUTH DAILY * METFORMIN ER 500 MG TABLET,EX* Take 2,000 mg by mouth once d* ROSUVASTATIN 10 MG TABLET Take 10 mg by mouth daily at * EFFEXOR XR 150 MG CAPSULE,EXT* Take one(1) tablet daily. Problem List As Of Date: 03/02/2021 (None) Encounter Status:Closed by NORMAN PERLA on 03/02/21 Normal [facility] CALCIFEDIOL ([id number])Ordered B y: Manager Clinical Services on 08-16-2020 25-Hydroxyvitamin D2+25-Hydroxyvitamin D3 [Mass/Vol] 34.2 ng/mL Normal 30.0-100.0 [facility] Work Phone: Comment on above: Vitamin D deficiency has been defined by the [place] of[place]icine and an Endocrine Society practice guideline as alevel of serum 25-OH vitamin D less than 20 ng/mL (1,2).The Endocrine Society went on to further define vitamin Dinsufficiency as a level between 21 and 29 ng/mL (2).1. IOM ([place] of [employer]). 2010. Dietary reference intakes for calcium and D. [place]: The National Academies Press.2. Jenna MF, Melissa [place], Faraz DOWD, et al. Evaluation, treatment, and prevention of vitamin D deficiency: an Endocrine Society clinical practice guideline. JCEM. 2010; 96(7):1911-30. Test(s) 485682-SUZ-I ; 689350-UVG-N; 983400-Tkzibuzarkxaz; 379845-Fwdmrlsitfv, Total; 624422-LUV-D (Total); 498678-Dmonm LDL-P; 360363-LNK Size; 565726-FN-LR Scorewas developed and its performance characteristics determinedby [facility]. It has not been cleared or approved by the Foodand Drug Administration.PATIENT WAS FASTINGPERFORMED BY: [employer] [address] [id number] BY: CogniticsNewton Medical CenterQhyqyv5202 [facility] [id number] CBC with auto diff (38492)Or dered By: Manager Clinical Services on 08-16-2020 Basophils (Bld) [#/Vol] 0.0 {x10E3/uL} Normal 0.0-0.2 [facility] Work Phone: Comment on above: Test(s) 728900-ITV-U ; 679389-ZFH-F; 989019-Elliidgtledxk; 294642-Ektanhcqvgj, Total; 233243-XRT-R (Total); 002504-Zkdof LDL-P; 777477-AWE Size; 632338-OG-WX Scorewas developed and its performance characteristics determinedby [facility]. It has not been cleared or approved by the Foodand Drug Administration.PATIENT WAS FASTINGPERFORMED BY: [employer] [address] [id number] BY: [facility] Zkipzf3111 [facility] [id number] Basophils (Bld) [#/Vol] 0.0 10*3/uL Normal 0.0-0.2 [facility]; [facility] Work Phone: Comment on above: Test(s) 707285-XFQ-X ; 826384-LZL-B; 875565-Pmlsxzysvjuml; 334200-Jfzvnbrqmav, Total; 001008-LYG-S (Total); 127735-Iibmp LDL-P; 980518-PFS Size; 503515-AL-QY Scorewas developed and its performance characteristics determinedby [facility]. It has not been cleared or approved by the Foodand Drug Administration.PATIENT WAS FASTINGPERFORMED BY: [employer] [address] [id number] BY: [facility] Cgqayw6813 [facility] [id number] Basophils/100 WBC (Bld) 0 % Normal [facility] Work Phone: Comment on above: Test(s) 654721-XMX-B ; 771817-NCR-W; 247170-Rkiunozgrhpek; 565363-Wvalpudcnrx, Total; 455378-PFH-W (Total); 603918-Oubkj LDL-P; 541168-SDI Size; 440981-VS-PO Scorewas developed and its performance characteristics determinedby [facility]. It has not been cleared or approved by the Foodand Drug Administration.PATIENT WAS FASTINGPERFORMED BY: [facility] [address] [id number] BY: CogniticsCrownpoint Healthcare FacilityBnvcie6865 [facility] [id number] Eosinophils (Bld) [#/Vol] 0.2 {x10E3/uL} Normal 0.0-0.4 [facility] Work Phone: Comment on above: Test(s) 307179-YPF-B ; 434319-FZK-I; 001140-Guoxezvanjene; 075331-Sapsvoubyxg, Total; 253213-FNS-Z (Total); 935688-Alweh LDL-P; 528949-WXH Size; 490741-AJ-LQ Scorewas developed and its performance characteristics determinedby [facility]. It has not been cleared or approved by the Foodand Drug Administration.PATIENT WAS FASTINGPERFORMED BY: Cognitics[address] [id number] BY: [employer] Clozrq1544 [facility] [id number] Eosinophils (Bld) [#/Vol] 0.2 10*3/uL Normal 0.0-0.4 [facility]; [facility] Work Phone: Comment on above: Test(s) 776289-WJM-T ; 236158-RTI-F; 116070-Fdhuxlpsuxrsm; 979054-Emmmopkpyak, Total; 350352-LUS-P (Total); 884524-Bpjlt LDL-P; 780127-OWL Size; 653525-QY-PE Scorewas developed and its performance characteristics determinedby [facility]. It has not been cleared or approved by the Foodand Drug Administration.PATIENT WAS FASTINGPERFORMED BY: [employer] [address] [id number] BY: CogniticsNewton Medical CenterMcuafc4090 [facility] [id number] Eosinophils/100 WBC (Bld) 3 % Normal [facility] Work Phone: Comment on above: Test(s) 285293-MCL-K ; 506099-URS-D; 071891-Kqfinzhapizph; 175104-Xtmdaikuqpn, Total; 021592-YAD-K (Total); 932666-Fgyuw LDL-P; 988694-CGV Size; 892477-LU-MF Scorewas developed and its performance characteristics determinedby [facility]. It has not been cleared or approved by the Foodand Drug Administration.PATIENT WAS FASTINGPERFORMED BY: [employer] [address] [id number] BY: MiSiedo Qyttls1994 [facility] [id number] Erythrocyte distribution width (RBC) [Ratio] 13.3 % Normal 11.7-15.4 [facility] Work Phone: Comment on above: Test(s) 633230-JKO-P ; 093033-BXW-D; 157243-Qyocnkfnhrtkq; 184513-Yevtotgwqll, Total; 583886-GWH-S (Total); 204403-Vfglx LDL-P; 194208-WDM Size; 948627-DE-QA Scorewas developed and its performance characteristics determinedby [facility]. It has not been cleared or approved by the Foodand Drug Administration.PATIENT WAS FASTINGPERFORMED BY: [employer] [address] [id number] BY: MiSiedo Kqvsof8430 [facility] [id number] Hematocrit (Bld) [Volume fraction] 44.3 % Normal 34.0-46.6 [facility] Work Phone: Comment on above: Test(s) 728335-OOX-U ; 415379-QYL-O; 713387-Ldrqyrmvylhmh; 100675-Ytzhsrztack, Total; 945696-GVL-C (Total); 263583-Kvqfb LDL-P; 574141-KIO Size; 175989-XJ-SE Scorewas developed and its performance characteristics determinedby [facility]. It has not been cleared or approved by the Foodand Drug Administration.PATIENT WAS FASTINGPERFORMED BY: [employer] [address] [id number] BY: MiSiedo Kqazks8756 [facility] [id number] Hemoglobin (Bld) [Mass/Vol] 14.8 g/dL Normal 11.1-15.9 [facility] Work Phone: Comment on above: Test(s) 399797-RBI-B ; 849617-ISE-M; 518921-Jyayniqvghudr; 412664-Lnqfcderhvg, Total; 642953-LKH-G (Total); 379966-Ffrok LDL-P; 556408-WYF Size; 114456-KP-KE Scorewas developed and its performance characteristics determinedby [facility]. It has not been cleared or approved by the Foodand Drug Administration.PATIENT WAS FASTINGPERFORMED BY: [employer] [address] [id number] BY: MiSiedo Gitomc4871 [facility] [id number] Immature granulocytes (Bld) [#/Vol] 0.0 {x10E3/uL} Normal 0.0-0.1 [facility] Work Phone: Comment on above: Test(s) 480978-BGP-N ; 499455-YFI-Q; 224636-Zrqqhppfnapwc; 348797-Pjnjajucrpi, Total; 999484-GFL-Z (Total); 989892-Rokje LDL-P; 373483-NNV Size; 362612-JT-WN Scorewas developed and its performance characteristics determinedby [facility]. It has not been cleared or approved by the Foodand Drug Administration.PATIENT WAS FASTINGPERFORMED BY: [employer] [address] [id number] BY: MiSiedo Ccsisk7299 [facility] [id number] Immature granulocytes (Bld) [#/Vol] 0.0 10*3/uL Normal 0.0-0.1 [facility]; [facility] Work Phone: Comment on above: Test(s) 896751-JDR-D ; 063487-BZG-R; 806172-Meipumdlbjtbf; 608952-Ezeipozuozu, Total; 648673-JKM-X (Total); 313821-Kdyxa LDL-P; 780102-AJY Size; 055975-GY-EG Scorewas developed and its performance characteristics determinedby [facility]. It has not been cleared or approved by the Foodand Drug Administration.PATIENT WAS FASTINGPERFORMED BY: [employer] [address] [id number] BY: Fresh [employer]6370 [facility] MedicalECU [facility] [id number] Immature granulocytes/100 WBC (Bld) 0 % Normal [facility] Work Phone: Comment on above: Test(s) 641418-OUJ-R ; 102457-EJB-R; 479588-Lshlpugiepvnx; 845333-Vgmetjzmyoa, Total; 139620-INL-I (Total); 983763-Cetpc LDL-P; 648479-HRH Size; 351070-RV-GV Scorewas developed and its performance characteristics determinedby [facility]. It has not been cleared or approved by the Foodand Drug Administration.PATIENT WAS FASTINGPERFORMED BY: [employer] [address] [id number] BY: MiSiedo Lumykk4370 [facility] [id number] Lymphocytes (Bld) [#/Vol] 2.1 {x10E3/uL} Normal 0.7-3.1 [facility] Work Phone: Comment on above: Test(s) 647973-VRX-X ; 139602-POV-W; 371497-Acztkljlgvfzo; 397985-Jakmzfdrkgf, Total; 341642-WJL-I (Total); 115866-Dyfmu LDL-P; 351528-JZT Size; 084517-CJ-GU Scorewas developed and its performance characteristics determinedby [facility]. It has not been cleared or approved by the Foodand Drug Administration.PATIENT WAS FASTINGPERFORMED BY: [employer] [address] [id number] BY: 1DocWay70 [facility] [id number] Lymphocytes (Bld) [#/Vol] 2.1 10*3/uL Normal 0.7-3.1 [facility]; [facility] Work Phone: Comment on above: Test(s) 262536-PSQ-X ; 170626-OEF-J; 714202-Prisikiirsxzp; 791547-Vgzhrmrppes, Total; 975960-NQN-C (Total); 735425-Zbwzo LDL-P; 460363-TAK Size; 464890-ZB-YT Scorewas developed and its performance characteristics determinedby [facility]. It has not been cleared or approved by the Foodand Drug Administration.PATIENT WAS FASTINGPERFORMED BY: [employer] [address] [id number] BY: 1DocWay70 [facility] [id number] Lymphocytes/100 WBC (Bld) 29 % Normal [facility] Work Phone: Comment on above: Test(s) 673670-NQT-T ; 362731-KQM-V; 828877-Tggzxvwbipswb; 977634-Aftwjommfko, Total; 009567-WHZ-I (Total); 739483-Ylfum LDL-P; 753899-HZE Size; 567462-SI-TU Scorewas developed and its performance characteristics determinedby [facility]. It has not been cleared or approved by the Foodand Drug Administration.PATIENT WAS FASTINGPERFORMED BY: [employer] [address] [id number] BY: Ofercitylin6370 [facility] [id number] MCH (RBC) [Entitic mass] 30.6 pg Normal 26.6-33.0 [facility] Internal Medicine Work Phone: Comment on above: Test(s) 802308-AWQ-V ; 827121-NTU-L; 301946-Pauozyqejhhyk; 403794-Tlgldosssnw, Total; 814529-RUP-A (Total); 614828-Ywicn LDL-P; 062275-RHE Size; 727419-HV-BF Scorewas developed and its performance characteristics determinedby [facility]. It has not been cleared or approved by the Foodand Drug Administration.PATIENT WAS FASTINGPERFORMED BY: BeatSwitch[address] [id number] BY: 1DocWay70 [facility]Re[facility] DigitalNov[facility] [id number] MCHC (RBC) [Mass/Vol] 33.4 g/dL Normal 31.5-35.7 [facility] Internal Medicine Work Phone: Comment on above: Test(s) 203459-QYF-V ; 001229-BNY-J; 771409-Tchkinidiigqn; 943889-Pzvysgolxox, Total; 944372-FUT-M (Total); 562654-Okccu LDL-P; 017427-FVT Size; 858596-EM-YR Scorewas developed and its performance characteristics determinedby [facility]. It has not been cleared or approved by the Foodand Drug Administration.PATIENT WAS FASTINGPERFORMED BY: [employer] [place] [address] [id number] BY: Fresh Direct6370 [facility]Re[facility] DigitalNov[facility] [id number] MCV (RBC) [Entitic vol] 92 fL Normal 79-97 [facility] Internal Medicine Work Phone: Comment on above: Test(s) 605438-IMQ-U ; 686204-ETJ-L; 245925-Gprfoqsoyzutw; 996898-Adukjpnhooc, Total; 155705-WMA-N (Total); 401450-Fhzqi LDL-P; 973536-ZWW Size; 597585-QE-UQ Scorewas developed and its performance characteristics determinedby [facility]. It has not been cleared or approved by the Foodand Drug Administration.PATIENT WAS FASTINGPERFORMED BY: [employer] [id number] BY: CogniticsNewton Medical CenterXdpmar8086 [facility] [id number] Monocytes (Bld) [#/Vol] 0.5 {x10E3/uL} Normal 0.1-0.9 [facility] Work Phone: Comment on above: Test(s) 871840-QGG-B ; 341042-SDA-H; 048965-Jndhdacivvzld; 235082-Mtsfacdnixr, Total; 179349-RQK-U (Total); 252408-Owmjr LDL-P; 477753-OFC Size; 148786-DE-IU Scorewas developed and its performance characteristics determinedby [facility]. It has not been cleared or approved by the Foodand Drug Administration.PATIENT WAS FASTINGPERFORMED BY: [facility] [address] [id number] BY: CogniticsNewton Medical CenterHobxiw9707 [facility] [id number] Monocytes (Bld) [#/Vol] 0.5 10*3/uL Normal 0.1-0.9 [facility]; [facility] Work Phone: Comment on above: Test(s) 903967-BEF-O ; 659963-MCU-K; 395416-Rihebgbeaswks; 016692-Erfwfhfinan, Total; 197044-RRP-K (Total); 640073-Drlqx LDL-P; 102508-JNW Size; 260780-BQ-JV Scorewas developed and its performance characteristics determinedby [facility]. It has not been cleared or approved by the Foodand Drug Administration.PATIENT WAS FASTINGPERFORMED BY: [employer] [id number] BY: CogniticsNewton Medical CenterWefapy1452 [facility] [id number] Monocytes/100 WBC (Bld) 7 % Normal [facility] Work Phone: Comment on above: Test(s) 118034-QWQ-B ; 436989-WBQ-V; 226084-Odlvyuxbeiyyp; 155691-Zmyxyyryihb, Total; 940537-CUK-H (Total); 591560-Zzymv LDL-P; 606782-XWF Size; 995075-WH-OJ Scorewas developed and its performance characteristics determinedby [facility]. It has not been cleared or approved by the Foodand Drug Administration.PATIENT WAS FASTINGPERFORMED BY: [facility] [address] [id number] BY: [facility] Rdzjtj5364 [facility] [id number] Neutrophils (Bld) [#/Vol] 4.5 {x10E3/uL} Normal 1.4-7.0 [facility] Work Phone: Comment on above: Test(s) 244387-ETS-C ; 065667-FRR-A; 270625-Btpsvrntjfofu; 456396-Oayojjpszns, Total; 606991-BXE-S (Total); 584029-Nkxcl LDL-P; 336345-QRM Size; 565731-JL-HA Scorewas developed and its performance characteristics determinedby [facility]. It has not been cleared or approved by the Foodand Drug Administration.PATIENT WAS FASTINGPERFORMED BY: [facility] [address] [id number] BY: [facility] Wrvkfr9639 [facility] [id number] Neutrophils (Bld) [#/Vol] 4.5 10*3/uL Normal 1.4-7.0 [facility]; [facility] Work Phone: Comment on above: Test(s) 111362-PRM-Z ; 302938-HPA-M; 380158-Kinvsvjnscpxf; 486443-Pxmoijnkccm, Total; 066988-QYR-E (Total); 336522-Rfbfn LDL-P; 229882-BTY Size; 003386-JF-QN Scorewas developed and its performance characteristics determinedby [facility]. It has not been cleared or approved by the Foodand Drug Administration.PATIENT WAS FASTINGPERFORMED BY: [employer] [address] [id number] BY: 1DocWay70 [facility] [id number] Neutrophils/100 WBC (Bld) 61 % Normal [facility] Work Phone: Comment on above: Test(s) 815766-ZPQ-J ; 585923-QJC-Q; 792975-Maqdbhhxfqcnt; 476473-Evkzykyvqzf, Total; 615346-VEA-M (Total); 034010-Ikmgr LDL-P; 988957-FSV Size; 394190-FN-EM Scorewas developed and its performance characteristics determinedby [facility]. It has not been cleared or approved by the Foodand Drug Administration.PATIENT WAS FASTINGPERFORMED BY: BeatSwitch[address] [id number] BY: [employer] Direct6370 [facility] [id number] Platelets (Bld) [#/Vol] 212 {x10E3/uL} Normal 150-450 [facility] Work Phone: Comment on above: Test(s) 006970-FCD-L ; 748806-SSA-J; 993963-Bzhbuqmgyqlea; 765200-Dxazwfjsvma, Total; 287374-JLI-H (Total); 031547-Jcpgl LDL-P; 179069-ENH Size; 910037-WV-JN Scorewas developed and its performance characteristics determinedby [facility]. It has not been cleared or approved by the Foodand Drug Administration.PATIENT WAS FASTINGPERFORMED BY: [employer] [address] [id number] BY: Ofercitylin6370 [facility] [id number] Platelets (Bld) [#/Vol] 212 10*3/uL Normal 150-450 [facility]; [facility] Work Phone: Comment on above: Test(s) 066136-GWB-K ; 608993-BED-A; 466977-Mocmuqpjpikpm; 318728-Jozdyuxroku, Total; 638031-VSF-X (Total); 156009-Jtbfk LDL-P; 662622-GRN Size; 821124-WM-SP Scorewas developed and its performance characteristics determinedby [facility]. It has not been cleared or approved by the Foodand Drug Administration.PATIENT WAS FASTINGPERFORMED BY: BeatSwitch[address] [id number] BY: CogniticsMichael [place] 3605570 [facility] [id number] RBC (Bld) [#/Vol] 4.83 {x10E6/uL} Normal 3.77-5.28 [facility] Internal [facility] Work Phone: Comment on above: Test(s) 806868-WNZ-J ; 036212-KUP-D; 096082-Hxyjpvyewmhyf; 083165-Dmxlzirycmb, Total; 285484-KSG-L (Total); 894155-Bsknq LDL-P; 978738-FUA Size; 509784-SD-YT Scorewas developed and its performance characteristics determinedby [facility]. It has not been cleared or approved by the Foodand Drug Administration.PATIENT WAS FASTINGPERFORMED BY: [employer] [address] [id number] BY: [facility] Ahmuyv2362 [facility] [id number] RBC (Bld) [#/Vol] 4.83 10*6/uL Normal 3.77-5.28 [facility] Internal Medicine; [facility] Work Phone: Comment on above: Test(s) 706753-KEC-O ; 989343-SME-N; 188922-Rdxhgvjtbpkae; 418331-Kvououzaewy, Total; 186150-WXH-Q (Total); 519933-Qhxgu LDL-P; 426611-HLC Size; 612564-AG-YY Scorewas developed and its performance characteristics determinedby [facility]. It has not been cleared or approved by the Foodand Drug Administration.PATIENT WAS FASTINGPERFORMED BY: [employer] [address] [id number] BY: Olista Igvfay3051 [facility] [id number] WBC (Bld) [#/Vol] 7.3 {x10E3/uL} Normal 3.4-10.8 [facility] Internal Medicine Work Phone: Comment on above: Test(s) 108827-IIZ-B ; 665337-KCE-R; 048719-Hpheefoapduke; 768123-Ripmcpwcsks, Total; 660700-KNV-F (Total); 918461-Iufvw LDL-P; 524351-HSO Size; 624829-HB-IW Scorewas developed and its performance characteristics determinedby [facility]. It has not been cleared or approved by the Foodand Drug Administration.PATIENT WAS FASTINGPERFORMED BY: [employer] [address] [id number] BY: [employer]6370 [facility]St[facility] [id number] WBC (Bld) [#/Vol] 7.3 10*3/uL Normal 3.4-10.8 [facility] Internal Medicine; [facility] Internal Medicine Work Phone: Comment on above: Test(s) 990234-YYG-Y ; 642331-ZTD-X; 758665-Hmgpeszuzumbb; 155506-Cznxcjnzbxv, Total; 198839-ODX-U (Total); 139558-Poqqj LDL-P; 374347-BAE Size; 658558-CJ-FT Scorewas developed and its performance characteristics determinedby [facility]. It has not been cleared or approved by the Foodand Drug Administration.PATIENT WAS FASTINGPERFORMED BY: [employer] [address] [id number] BY: [employer]6370 [facility] [id number] METABOLIC PANEL, COMPREHENSI VE (25444)Ordered By: Manager Clinical Services on 08-16-2020 Albumin [Mass/Vol] 4.2 g/dL Normal 3.8-4.8 [facility] Internal Medicine Work Phone: Comment on above: Test(s) 612706-WBD-I ; 867961-OUR-R; 403494-Soilzwvhipjzd; 014643-Mxlxggctokj, Total; 540984-NMG-E (Total); 043029-Rrlfl LDL-P; 976607-ZSM Size; 226760-YV-EU Scorewas developed and its performance characteristics determinedby [facility]. It has not been cleared or approved by the Foodand Drug Administration.PATIENT WAS FASTINGPERFORMED BY: [employer] [address] [id number] BY: MiSiedo Uoafva8573 [facility] [id number] Albumin/Globulin [Mass ratio] 1.6 {ratio} Normal 1.2-2.2 [facility] Work Phone: Comment on above: Test(s) 131576-PDR-A ; 831688-INR-D; 224585-Ctpzgfkzqdrzi; 022057-Xidktupglnr, Total; 091748-HCE-M (Total); 995457-Todfj LDL-P; 848580-NTG Size; 847076-EB-TN Scorewas developed and its performance characteristics determinedby [facility]. It has not been cleared or approved by the Foodand Drug Administration.PATIENT WAS FASTINGPERFORMED BY: [employer] [address] [id number] BY: Fresh Direct6370 [facility] [id number] ALP [Catalytic activity/Vol] 100 [iU]/L Normal 39-117 [facility] Work Phone: Comment on above: Test(s) 658490-STB-L ; 159959-RNY-U; 965892-Pqfwugpexaaug; 346729-Uihhvxuoczs, Total; 398541-AJK-Q (Total); 258905-Npigi LDL-P; 366699-BYM Size; 665521-BL-YG Scorewas developed and its performance characteristics determinedby [facility]. It has not been cleared or approved by the Foodand Drug Administration.PATIENT WAS FASTINGPERFORMED BY: [employer] [address] [id number] BY: MiSiedo Roxoqr0759 [facility] [id number] ALP [Catalytic activity/Vol] 100 U/L Normal 39-117 [facility]; [facility] Work Phone: Comment on above: Test(s) 278238-LNR-I ; 146925-LZZ-J; 369948-Ofzdlnaajufmf; 121289-Tuwvpulxwbr, Total; 083771-VPS-E (Total); 054371-Sykkn LDL-P; 584892-QXP Size; 014565-EZ-YH Scorewas developed and its performance characteristics determinedby [employer]. It has not been cleared or approved by the Foodand Drug Administration.PATIENT WAS FASTINGPERFORMED BY: [employer] [address] [id number] BY: MiSiedo Ywhanp7992 [facility] [id number] ALT [Catalytic activity/Vol] 11 [iU]/L Normal 0-32 [facility] Internal Medicine Work Phone: Comment on above: Test(s) 855915-UAM-S ; 938144-JHO-G; 006515-Xfswyqdzztvji; 362091-Lvtsbavrywg, Total; 583041-LBE-G (Total); 906188-Pqohy LDL-P; 876040-GDU Size; 310516-SU-UZ Scorewas developed and its performance characteristics determinedby [facility]. It has not been cleared or approved by the Foodand Drug Administration.PATIENT WAS FASTINGPERFORMED BY: [employer] [address] [id number] BY: MiSiedo Hwfosy3506 [facility] [id number] ALT [Catalytic activity/Vol] 11 U/L Normal 0-32 [facility]; [facility] Work Phone: Comment on above: Test(s) 435784-WPU-X ; 013568-OTV-Q; 546715-Splmgchglhkst; 593433-Bjslwcgvbcu, Total; 861783-OEF-X (Total); 480855-Mrtvl LDL-P; 405542-AKH Size; 532265-WL-LU Scorewas developed and its performance characteristics determinedby [employer]. It has not been cleared or approved by the Foodand Drug Administration.PATIENT WAS FASTINGPERFORMED BY: [employer] [id number] BY: CogniticsNewton Medical CenterXiqzxn7463 [facility] [id number] AST [Catalytic activity/Vol] 11 [iU]/L Normal 0-40 [facility] Work Phone: Comment on above: Test(s) 378537-BYU-K ; 145195-XJJ-Y; 790512-Xtvdibuyoawvl; 882358-Ykynlwhlkwd, Total; 850322-TTD-K (Total); 317768-Ufxxh LDL-P; 064439-KQP Size; 521043-KU-YS Scorewas developed and its performance characteristics determinedby [facility]. It has not been cleared or approved by the Foodand Drug Administration.PATIENT WAS FASTINGPERFORMED BY: [employer] [address] [id number] BY: Fresh [employer]6370 [facility] BandspeedEC[facility] [id number] AST [Catalytic activity/Vol] 11 U/L Normal 0-40 [facility]; [facility] Medicine Work Phone: Comment on above: Test(s) 240287-MAJ-J ; 310099-ARD-L; 777796-Odmoyaucuymsf; 111634-Ebufxivvuit, Total; 457929-KQB-D (Total); 120713-Wykwq LDL-P; 105541-GGC Size; 251675-CF-AQ Scorewas developed and its performance characteristics determinedby [facility]. It has not been cleared or approved by the Foodand Drug Administration.PATIENT WAS FASTINGPERFORMED BY: [employer] [address] [id number] BY: CogniticsNewton Medical CenterQvgipu9929 [facility] BandspeedEC[facility] [id number] Bilirubin [Mass/Vol] 0.4 mg/dL Normal 0.0-1.2 [facility] Internal Medicine Work Phone: Comment on above: Test(s) 655968-FFZ-L ; 810746-LOS-U; 618991-Dhxkynohllfob; 381571-Hudfyfbflhr, Total; 901714-ZPX-Y (Total); 214257-Znycn LDL-P; 033123-UCU Size; 242857-QA-JJ Scorewas developed and its performance characteristics determinedby [facility]. It has not been cleared or approved by the Foodand Drug Administration.PATIENT WAS FASTINGPERFORMED BY: Beat[employer] [id number] BY: 1DocWay70 [facility] [id number] Calcium [Mass/Vol] 9.1 mg/dL Normal 8.7-10.3 [facility] Internal Medicine Work Phone: Comment on above: Test(s) 138097-ZUF-C ; 930945-UHE-I; 028352-Siwauggqtazvj; 675619-Dnljgaagikd, Total; 675654-SEE-O (Total); 248687-Cfwrp LDL-P; 784215-HWD Size; 386613-EY-VG Scorewas developed and its performance characteristics determinedby [facility]. It has not been cleared or approved by the Foodand Drug Administration.PATIENT WAS FASTINGPERFORMED BY: [employer] [address] [id number] BY: [employer]6370 [facility] [id number] Chloride [Moles/Vol] 103 mmol/L Normal 96-106 [facility] Internal Medicine Work Phone: Comment on above: Test(s) 440863-MBK-F ; 439901-STV-L; 883026-Gulwlfieycrrh; 002074-Yyxoapjygfg, Total; 411939-GRU-L (Total); 716113-Vtnfw LDL-P; 386603-AWV Size; 344261-HY-AL Scorewas developed and its performance characteristics determinedby [facility]. It has not been cleared or approved by the Foodand Drug Administration.PATIENT WAS FASTINGPERFORMED BY: [employer] [address] [id number] BY: MiSiedo Wvgmcc0379 [facility] [id number] CO2 [Moles/Vol] 27 mmol/L Normal 20-29 [facility] Internal Medicine Work Phone: Comment on above: Test(s) 506513-OZS-C ; 322400-WOU-F; 061050-Kwtkznwuqbhyo; 907740-Tlggtfoilnd, Total; 704265-AXU-D (Total); 362517-Ehfwn LDL-P; 333106-GXU Size; 932644-JX-ZQ Scorewas developed and its performance characteristics determinedby [facility]. It has not been cleared or approved by the Foodand Drug Administration.PATIENT WAS FASTINGPERFORMED BY: [employer] [address] [id number] BY: [employer]6370 [facility] [id number] Creatinine [Mass/Vol] 0.55 mg/dL Abnormal 0.57-1.00 [email or web address] Internal Medicine Work Phone: Comment on above: Test(s) 796564-LDX-Q ; 082071-SGH-O; 532966-Moqyxnklvctto; 207208-Gpfckwmgxtp, Total; 215586-YDB-B (Total); 040771-Qiemq LDL-P; 439671-FYA Size; 306691-PB-ED Scorewas developed and its performance characteristics determinedby [facility]. It has not been cleared or approved by the Foodand Drug Administration.PATIENT WAS FASTINGPERFORMED BY: [employer] [address] [id number] BY: MiSiedo Eqyhjt0272 [facility] [id number] GFR/1.73 sq M predicted among blacks CKD-EPI (S/P/Bld) [Vol rate/Area] 115 mL/min/1.73 Normal [facility] Internal Medicine Work Phone: Comment on above: Test(s) 730828-OZK-I ; 014594-OGM-Z; 005987-Cwnwunorbztxj; 978078-Hdtydcftqvi, Total; 842611-LOZ-F (Total); 639996-Cqeue LDL-P; 475383-OKR Size; 302575-KO-XD Scorewas developed and its performance characteristics determinedby [facility]. It has not been cleared or approved by the Foodand Drug Administration.PATIENT WAS FASTINGPERFORMED BY: [employer] [address] [id number] BY: [facility] Ydrcts0865 [facility] [id number] GFR/1.73 sq M predicted among non-blacks CKD-EPI (S/P/Bld) [Vol rate/Area] 99 mL/min/1.73 Normal [facility] Work Phone: Comment on above: Test(s) 900366-RJZ-G ; 478801-BTR-N; 808844-Bubijbkflodza; 674988-Delouckewnr, Total; 706648-LNC-G (Total); 918753-Rpzkz LDL-P; 819909-ADM Size; 625702-RM-DB Scorewas developed and its performance characteristics determinedby [facility]. It has not been cleared or approved by the Foodand Drug Administration.PATIENT WAS FASTINGPERFORMED BY: [employer] [address] [id number] BY: MiSiedo Sklxqy1197 [facility] [id number] Globulin (S) [Mass/Vol] 2.7 g/dL Normal 1.5-4.5 [facility] Work Phone: Comment on above: Test(s) 952573-HCD-T ; 593637-GME-M; 953474-Ouhvdoxkkkmpn; 374454-Lgeibczlgkq, Total; 033061-RCV-V (Total); 157011-Pjrry LDL-P; 817514-EXZ Size; 888554-ZA-UJ Scorewas developed and its performance characteristics determinedby [facility]. It has not been cleared or approved by the Foodand Drug Administration.PATIENT WAS FASTINGPERFORMED BY: [employer] [address] [id number] BY: [employer]6370 [facility] [id number] Glucose [Mass/Vol] 159 mg/dL Abnormal 65-99 [facility] Internal Medicine Work Phone: Comment on above: Test(s) 619478-YSA-R ; 951111-PPE-V; 580051-Kqmcxdxyurxxo; 927144-Lnrvumncmoj, Total; 354006-JFK-U (Total); 131364-Elxaf LDL-P; 187529-DNH Size; 122163-OZ-YU Scorewas developed and its performance characteristics determinedby [facility]. It has not been cleared or approved by the Foodand Drug Administration.PATIENT WAS FASTINGPERFORMED BY: BeatSwitch[address] [id number] BY: [employer]6370 [facility] [id number] Potassium [Moles/Vol] 4.5 mmol/L Normal 3.5-5.2 [facility] Internal [facility] Work Phone: Comment on above: Test(s) 503171-BHA-I ; 915862-GUP-Y; 444613-Ifrgjlodvqsiu; 086786-Inoahxkyene, Total; 769428-BLM-N (Total); 910673-Buuqs LDL-P; 378383-IFI Size; 082019-CP-LG Scorewas developed and its performance characteristics determinedby [facility]. It has not been cleared or approved by the Foodand Drug Administration.PATIENT WAS FASTINGPERFORMED BY: [employer] [address] [id number] BY: MiSiedo Uwlcyc2254 [facility] [id number] Protein [Mass/Vol] 6.9 g/dL Normal 6.0-8.5 [facility] Internal Medicine Work Phone: Comment on above: Test(s) 756710-HTG-I ; 332111-VZO-H; 695097-Arklrdstmbjho; 100112-Pcbnlcpyeck, Total; 669742-YUU-Q (Total); 131086-Uhevm LDL-P; 114846-REO Size; 039252-TB-WH Scorewas developed and its performance characteristics determinedby [facility]. It has not been cleared or approved by the Foodand Drug Administration.PATIENT WAS FASTINGPERFORMED BY: [employer] [address] [id number] BY: 1DocWay70 [facility] [id number] Sodium [Moles/Vol] 143 mmol/L Normal 134-144 [facility] Internal Medicine Work Phone: Comment on above: Test(s) 123603-BRE-O ; 575922-VYN-Y; 731207-Nepowpopeqezq; 085747-Uatfubtxfut, Total; 819384-YME-V (Total); 201015-Upggt LDL-P; 626580-DIK Size; 490295-RZ-IU Scorewas developed and its performance characteristics determinedby [facility]. It has not been cleared or approved by the Foodand Drug Administration.PATIENT WAS FASTINGPERFORMED BY: [employer] [address] [id number] BY: 1DocWay70 [facility]edEC[facility] [id number] Urea nitrogen [Mass/Vol] 15 mg/dL Normal 8- [facility] Internal Medicine Work Phone: Comment on above: Test(s) 926742-GJD-G ; 107738-UJK-A; 499269-Ovyumpdcwfbfe; 083057-Lyrwfufegso, Total; 525212-XGC-Q (Total); 381826-Myvvp LDL-P; 525453-VIK Size; 898835-DP-UN Scorewas developed and its performance characteristics determinedby [facility]. It has not been cleared or approved by the Foodand Drug Administration.PATIENT WAS FASTINGPERFORMED BY: [employer] [address] [id number] BY: OlistaNewton Medical CenterIejjbz6478 [facility] [id number] Urea nitrogen/Creatinine [Mass ratio] 27 mg/mg Normal 12- [facility] Internal Medicine Work Phone: Comment on above: Test(s) 891049-APT-O ; 229579-JHV-R; 111851-Rknvxfesxinxr; 614112-Wjpkrtxdozy, Total; 397012-VKQ-R (Total); 022166-Qyupe LDL-P; 857513-IWF Size; 438551-RY-UT Scorewas developed and its performance characteristics determinedby [facility]. It has not been cleared or approved by the Foodand Drug Administration.PATIENT WAS FASTINGPERFORMED BY: [employer] [address] [id number] BY: 1DocWay70 [facility]ridgeSt[facility] [id number] MICROALBUMINOrdered By: Syst em Supervisor Quality Control on 08-16-2020 Albumin DL <= 20 mg/L (U) [Mass/Vol] 214.7 ug/mL Normal [facility] Work Phone: Comment on above: Test(s) 379425-FPH-R ; 063438-QJZ-A; 591449-Ayzlkyegtuiih; 031585-Oiwnofnkymm, Total; 628106-OEZ-N (Total); 265032-Salro LDL-P; 832849-SPT Size; 186538-TV-KX Scorewas developed and its performance characteristics determinedby [facility]. It has not been cleared or approved by the Foodand Drug Administration.PATIENT WAS FASTINGPERFORMED BY: [employer] [address] [id number] BY: [employer]6370 [facility] Bands[facility]edEC[facility] [id number] Albumin/Creatinine (U) [Mass ratio] 187 {mg/g_creat} Abnormal 0-29 [facility] Work Phone: Comment on above: Normal: 0 - 29 Moder ately increased: 30 - 300 Severely increased: >300 Test(s) 081150-DDZ-H ; 537074-TVR-Y; 312193-Fdhsimaltgypw; 978579-Kwbjrfyfggn, Total; 100438-JMC-E (Total); 703646-Ivjyu LDL-P; 019755-MUK Size; 580775-EM-OL Scorewas developed and its performance characteristics determinedby [facility]. It has not been cleared or approved by the Foodand Drug Administration.PATIENT WAS FASTINGPERFORMED BY: [employer] [address] [id number] BY: Wami6370 [address] CrowdzuNovant Health [facility] [id number] Creatinine (U) [Mass/Vol] 114.9 mg/dL Normal Comprehensive Internal Medicine Work Phone: Comment on above: Test(s) 958091-EOY-Y ; 305959-EGG-A; 345740-Xussklkksdhtr; 012998-Eqpfpvexoow, Total; 986935-EAK-M (Total); 997874-Mkiag LDL-P; 346836-YPC Size; 471339-SO-SK Scorewas developed and its performance characteristics determinedby [facility]. It has not been cleared or approved by the Foodand Drug Administration.PATIENT WAS FASTINGPERFORMED BY: BeatSwitch[address] [id number] BY: [employer]6370 [facility] [id number] NMR Profile (01878)Ordered B y: Manager Clinical Services on 08-16-2020 Cholesterol [Mass/Vol] 168 mg/dL Normal 100-199 [facility] Internal Medicine Work Phone: Comment on above: Test(s) 570746-AIR-O ; 943915-ONA-V; 306723-Hhfglglnzmaoa; 066142-Pdffjpezzdl, Total; 506947-JTI-G (Total); 068944-Gnfxr LDL-P; 531879-FAS Size; 337179-AG-MS Scorewas developed and its performance characteristics determinedby [facility]. It has not been cleared or approved by the Foodand Drug Administration.PATIENT WAS FASTINGPERFORMED BY: [employer] [address] [id number] BY: [employer]6370 [facility] [id number] Lipoprotein.alpha [Moles/Vol] 34.7 umol/L Normal [facility] Internal Medicine Work Phone: Comment on above: Test(s) 219479-LEG-C ; 438226-QTE-D; 366852-Ojddhesxrpthq; 377436-Qagifsmvvts, Total; 550173-EFM-A (Total); 459301-Przkc LDL-P; 340165-WGX Size; 308387-AH-UK Scorewas developed and its performance characteristics determinedby [facility]. It has not been cleared or approved by the Foodand Drug Administration.PATIENT WAS FASTINGPERFORMED BY: BN [facility] Bgmljiwoxi0669 [facility] [id number] BY: CB [facility] Vibtyo5852 [facility] [id number] Lipoprotein.beta.subpa rticle [Entitic length] 20.1 nm Abnormal [facility] Work Phone: Comment on above: INTERPRETATIVE INFORMATION PARTICLE CONCENTRATION AND SIZE <--Lower CVD Risk Higher CVD Risk--> LDL AND HDL PARTICLES Percentile in Reference Population HDL-P (total) High 75th 50th 25th Low >34.9 34.9 30.5 26.7 <26.7 . Small LDL-P Low 25th 50th 75th High <117 117 527 839 >839 . LDL Size <-Large (Pattern A)-> <-Small (Pattern B)-> 23.0 20.6 20.5 19.0 Small LDL-P and LDL Size are associated with CVD risk, but not afterLDL-P is taken into account. Test(s) 717963-NXC-L ; 937718-SYJ-Y; 490046-Cnpdcfxfqprvq; 361615-Inyifxasepa, Total; 243667-RHY-P (Total); 406772-Sufpc LDL-P; 924303-BTL Size; 836478-FR-ZE Scorewas developed and its performance characteristics determinedby [facility]. It has not been cleared or approved by the Foodand Drug Administration.PATIENT WAS FASTINGPERFORMED BY: [employer] [address] [id number] BY: [employer] Drjtpa9123 [place] BandspeedECU [facility] [id number] Lipoprotein.beta.subpa rticle [Moles/Vol] 1064 nmol/L Abnormal [facility] Work Phone: Comment on above: Low < 1000 Moderate 1000 - 1299 Borderline-High 1300 - 1599 High 1600 - 2000 Very High > 2000 Test(s) 011858-AFB-U ; 166035-LMR-Y; 729001-Onqiyenxlatbk; 804937-Ajobtougarn, Total; 504407-UFW-P (Total); 233219-Uznto LDL-P; 693378-YMA Size; 012796-AW-UA Scorewas developed and its performance characteristics determinedby [facility]. It has not been cleared or approved by the Foodand Drug Administration.PATIENT WAS FASTINGPERFORMED BY: [employer] [address] [id number] BY: 1DocWay70 [address]ridgeSt[address] [facility] [id number] Lipoprotein.beta.subpa rticle.small [Moles/Vol] 672 nmol/L Abnormal [facility] Work Phone: Comment on above: Test(s) 878948-TXJ-N ; 007042-YBD-E; 752302-Nfrcxciakghyp; 235061-Eamkmhqdskp, Total; 871415-UUE-C (Total); 603316-Wmjrb LDL-P; 249191-POX Size; 975495-DC-DO Scorewas developed and its performance characteristics determinedby [facility]. It has not been cleared or approved by the Foodand Drug Administration.PATIENT WAS FASTINGPERFORMED BY: [employer] [address] [id number] BY: 1DocWay70 [facility] [id number] Triglyceride [Mass/Vol] 198 mg/dL Abnormal 0-149 [facility] Work Phone: Comment on above: Test(s) 559281-LLE-I ; 082461-IUG-V; 766113-Wijttxssduxim; 122039-Qswxiznpzxv, Total; 134061-FGZ-W (Total); 919614-Iddzp LDL-P; 842095-SKE Size; 516693-HE-OO Scorewas developed and its performance characteristics determinedby [facility]. It has not been cleared or approved by the Foodand Drug Administration.PATIENT WAS FASTINGPERFORMED BY: [employer] [address] [id number] BY: Ofercitylin6370 [facility] [id number] NMR Profile (10059) 43 mg/dL Normal [facility] Internal Medicine Work Phone: Comment on above: Test(s) 742498-BYA-P ; 695800-ETL-L; 957377-Pqqbywycgklry; 925765-Idqzeopvpoa, Total; 201240-TIK-I (Total); 779739-Hizee LDL-P; 191483-IRT Size; 708549-SQ-AC Scorewas developed and its performance characteristics determinedby [facility]. It has not been cleared or approved by the Foodand Drug Administration.PATIENT WAS FASTINGPERFORMED BY: [employer] Jmkirahttd1626 [facility] [id number] BY: MiSiedo Yupdia0708 [facility] [id number] NMR Profile (69702) 91 mg/dL Normal 0-99 [facility] Internal Medicine Work Phone: Comment on above: . Optimal < 100 Abov e optimal 100 - 129 Borderline 130 - 159 High 160 - 189 Very high > 189 . Test(s) 003874-FCP-G ; 294305-XHV-F; 527980-Alkqydgywmlbv; 814945-Zmgpzjicazb, Total; 042882-DNF-Q (Total); 440897-Rppxk LDL-P; 336858-EAB Size; 651838-AN-GK Scorewas developed and its performance characteristics determinedby [facility]. It has not been cleared or approved by the Foodand Drug Administration.PATIENT WAS FASTINGPERFORMED BY: [employer] Ydcfehcqbt5598 [facility] [id number] BY: CogniticsNewton Medical CenterZpcymi5886 [facility] [id number] NMR Profile (63518) 198 mg/dL Abnormal 0-149 Compr ensive Internal Medicine; [facility] Work Phone: NMR Profile (45256) 168 mg/dL Normal 100-199 Compr ensive Internal Medicine; [facility] Work Phone: TSH (THYROID STIMULATING HOR CECILIA) (67970)Ordered By: Manager Clinical Services on 08-16-2020 TSH Qn 1.850 {uIU/mL} Normal 0.450-4.500 [facility] Internal Medicine Work Phone: Comment on above: Test(s) 011798-AQB-V ; 796447-AZP-R; 041012-Vwhsmjvguebde; 928624-Ixgptqqshpw, Total; 047115-QHG-R (Total); 043880-Fgjfw LDL-P; 857106-GSG Size; 279630-NF-NF Scorewas developed and its performance characteristics determinedby [facility]. It has not been cleared or approved by the Foodand Drug Administration.PATIENT WAS FASTINGPERFORMED BY: [employer] Nfbdgfhxjl7072 [facility] [id number] BY: CogniticsNewton Medical CenterWpusnd5299 [facility] [id number] Blood Glucose , Office ([phone])Ordered By: Tracy Kapadia on 04-28-2020 Glucose Glucometer (BldC) [Moles/Vol] 126 1 Normal [facility] Work Phone: HgA1C , Office ([phone])Ordere d By: Tracy Kapadia on 04-28-2020 HbA1c (Bld) [Mass fraction] 8.2 % Abnormal 4.6 - 7.1 [facility] Work Phone: HgA1C , Office ([phone])Ordere d By: Kiki Cain on 01-21-2020 HbA1c (Bld) [Mass fraction] 7.5 % Abnormal 4.6 - 7.1 [facility] Work Phone: CALCIFEDIOL ([phone])Ordered B y: Manager Clinical Services on 01-14-2020 25-Hydroxyvitamin D2+25-Hydroxyvitamin D3 [Mass/Vol] 37.1 ng/mL Normal 30.0-100.0 [facility] Work Phone: Comment on above: Vitamin D deficiency has been defined by the [place] of[place] and an Endocrine Society practice guideline as alevel of serum 25-OH vitamin D less than 20 ng/mL (1,2).The Endocrine Society went on to further define vitamin Dinsufficiency as a level between 21 and 29 ng/mL (2).1. IOM ([place] of [place]). 2010. Dietary reference intakes for calcium and D. [place]: The National Academies Press.2. Jenna MF, Melissa HANSEN, Faraz DOWD, et al. Evaluation, treatment, and prevention of vitamin D deficiency: an Endocrine Society clinical practice guideline. JCEM. 2010; 96(7):1911-30. PATIENT WAS FASTINGP ERFORMED BY: 1DocWay70 [facility] [id number] CBC, PLATELETS & AUT DIFF (8 2258)Ordered By: Manager Clinical Services on 01-14-2020 Basophils (Bld) [#/Vol] 0.0 {x10E3/uL} Normal 0.0-0.2 [facility] Work Phone: Comment on above: PATIENT WAS FASTINGP ERFORMED BY: Akos[employer] LabWeembarp Yrkymd2880 KitLocatein [place] [id number] Basophils (Bld) [#/Vol] 0.0 10*3/uL Normal 0.0-0.2 [facility]; [facility] Work Phone: Comment on above: PATIENT WAS FASTINGP ERFORMED BY: [employer]in [place] [id number] Basophils/100 WBC (Bld) 0 % Normal [facility] Work Phone: Comment on above: PATIENT WAS FASTINGP ERFORMED BY: [facility]6[address] RoadOn License Of Unc Medical Centerin [place] [id number] Eosinophils (Bld) [#/Vol] 0.2 {x10E3/uL} Normal 0.0-0.4 [facility] Work Phone: Comment on above: PATIENT WAS FASTINGP ERFORMED BY: [facility]6370 [facility] [id number] Eosinophils (Bld) [#/Vol] 0.2 10*3/uL Normal 0.0-0.4 [facility]; [facility] Work Phone: Comment on above: PATIENT WAS FASTINGP ERFORMED BY: [place] 7510470 [facility] [id number] Eosinophils/100 WBC (Bld) 3 % Normal [facility] Work Phone: Comment on above: PATIENT WAS FASTINGP ERFORMED BY: [place] 7510470 [facility] [id number] Erythrocyte distribution width (RBC) [Ratio] 13.0 % Normal 11.7-15.4 [facility] Work Phone: Comment on above: PATIENT WAS FASTINGP ERFORMED BY: [facility]6370 [facility] [id number] Hematocrit (Bld) [Volume fraction] 45.9 % Normal 34.0-46.6 [facility] Work Phone: Comment on above: PATIENT WAS FASTINGP ERFORMED BY: [facility]6370 [facility] [id number] Hemoglobin (Bld) [Mass/Vol] 15.0 g/dL Normal 11.1-15.9 [facility] Work Phone: Comment on above: PATIENT WAS FASTINGP ERFORMED BY: [facility]6[address] [facility] [id number] Immature granulocytes (Bld) [#/Vol] 0.0 {x10E3/uL} Normal 0.0-0.1 [facility] Work Phone: Comment on above: PATIENT WAS FASTINGP ERFORMED BY: [facility] Zukdxo7476 [address]ridge RoadDublin [place] [id number] Immature granulocytes (Bld) [#/Vol] 0.0 10*3/uL Normal 0.0-0.1 [facility]; [facility] Work Phone: Comment on above: PATIENT WAS FASTINGP ERFORMED BY: [facility] RoadDublin [place] [id number] Immature granulocytes/100 WBC (Bld) 0 % Normal [facility] Work Phone: Comment on above: PATIENT WAS FASTINGP ERFORMED BY: [facility]6[address] Roadblin [place] [id number] Lymphocytes (Bld) [#/Vol] 2.1 {x10E3/uL} Normal 0.7-3.1 [facility] Work Phone: Comment on above: PATIENT WAS FASTINGP ERFORMED BY: [facility] [facility] [place] [id number] Lymphocytes (Bld) [#/Vol] 2.1 10*3/uL Normal 0.7-3.1 [facility] Internal Medicine; [facility] Work Phone: Comment on above: PATIENT WAS FASTINGP ERFORMED BY: [facility] [facility]in [place] [id number] Lymphocytes/100 WBC (Bld) 32 % Normal [facility] Work Phone: Comment on above: PATIENT WAS FASTINGP ERFORMED BY: [facility] [facility] [place] [id number] MCH (RBC) [Entitic mass] 29.8 pg Normal 26.6-33.0 [facility] Internal Medicine Work Phone: Comment on above: PATIENT WAS FASTINGP ERFORMED BY: [facility]6[address] [facility] [place] [id number] MCHC (RBC) [Mass/Vol] 32.7 g/dL Normal 31.5-35.7 [facility] prehensive Internal Medicine Work Phone: Comment on above: PATIENT WAS FASTINGP ERFORMED BY: CODY [facility] Emssls3317 [address] RoadDublin [place] [id number] MCV (RBC) [Entitic vol] 91 fL Normal 79-97 [facility] Work Phone: Comment on above: PATIENT WAS FASTINGP ERFORMED BY: CODY [facility] Qbrxaf0900 [address] RoadDublin [place] [id number] Monocytes (Bld) [#/Vol] 0.4 {x10E3/uL} Normal 0.1-0.9 [facility] Work Phone: Comment on above: PATIENT WAS FASTINGP ERFORMED BY: [facility] Jjqqbg2427 [address] RoadDublin [place] [id number] Monocytes (Bld) [#/Vol] 0.4 10*3/uL Normal 0.1-0.9 [facility]; [facility] Work Phone: Comment on above: PATIENT WAS FASTINGP ERFORMED BY: [facility] Njhidj3289 [address] RoadDublin [place] [id number] Monocytes/100 WBC (Bld) 6 % Normal [facility] Work Phone: Comment on above: PATIENT WAS FASTINGP ERFORMED BY: [facility] Ggsxsz1169 [address] RoadDublin [place] [id number] Neutrophils (Bld) [#/Vol] 3.8 {x10E3/uL} Normal 1.4-7.0 [facility] Work Phone: Comment on above: PATIENT WAS FASTINGP ERFORMED BY: LabGeneral [facility] HospitalJpjjar5620 [address] RoadDublin [place] [id number] Neutrophils (Bld) [#/Vol] 3.8 10*3/uL Normal 1.4-7.0 [facility]; [facility] Work Phone: Comment on above: PATIENT WAS FASTINGP ERFORMED BY: [facility] Xqqdri6898 [address] RoadDublin [place] [id number] Neutrophils/100 WBC (Bld) 59 % Normal [facility] Work Phone: Comment on above: PATIENT WAS FASTINGP ERFORMED BY: CODY [facility] Ajfjcn5771 [address] RoadDublin [place] [id number] Platelets (Bld) [#/Vol] 234 {x10E3/uL} Normal 150-450 [facility] Work Phone: Comment on above: PATIENT WAS FASTINGP ERFORMED BY: CB [facility] Gcaxtl6124 [address] RoadDublin [place] [id number] Platelets (Bld) [#/Vol] 234 10*3/uL Normal 150-450 [facility]; [facility] Work Phone: Comment on above: PATIENT WAS FASTINGP ERFORMED BY: CB [facility] Hbrwaq0849 [address] RoadDublin [place] [id number] RBC (Bld) [#/Vol] 5.03 {x10E6/uL} Normal 3.77-5.28 [facility] Internal Medicine Work Phone: Comment on above: PATIENT WAS FASTINGP ERFORMED BY: CB [facility] Cxewak6[address] RoadDublin [place] [id number] RBC (Bld) [#/Vol] 5.03 10*6/uL Normal 3.77-5.28 [facility]erens[facility]; [facility] Work Phone: Comment on above: PATIENT WAS FASTINGP ERFORMED BY: CODY [facility] Pputda4051 [address] RoadDublin [place] [id number] WBC (Bld) [#/Vol] 6.5 {x10E3/uL} Normal 3.4-10.8 [facility] Internal Medicine Work Phone: Comment on above: PATIENT WAS FASTINGP ERFORMED BY: CB [facility] Lerhoj7908 [address] RoadDublin [place] [id number] WBC (Bld) [#/Vol] 6.5 10*3/uL Normal 3.4-10.8 [facility] Internal Medicine; [facility] Work Phone: Comment on above: PATIENT WAS FASTINGP ERFORMED BY: CB [facility] Nfgkqh5346 [address] RoadDublin [place] [id number] LIPID PANEL (07150)Ordered B y: Manager Clinical Services on 01-14-2020 Cholesterol [Mass/Vol] 218 mg/dL Abnormal 100-199 [facility] Internal Medicine Work Phone: Comment on above: PATIENT WAS FASTINGP ERFORMED BY: CODY LabAdelita Mlmkzv4431 [facility] [id number] Cholesterol in HDL [Mass/Vol] 35 mg/dL Abnormal [facility] Work Phone: Comment on above: PATIENT WAS FASTINGP ERFORMED BY: CODY LabCoNewton Medical CenterHhuzmg2359 [facility] [id number] Cholesterol in LDL [Mass/Vol] 116 mg/dL Abnormal 0-99 [facility] Work Phone: Comment on above: PATIENT WAS FASTINGP ERFORMED BY: CODY LabKeagansandy YeungCrpzjj8487 [facility] [id number] Cholesterol in LDL/Cholesterol in HDL [Mass ratio] 3.3 {ratio} Abnormal 0.0-3.2 [facility] Work Phone: Comment on above: LDL/HDL Ratio Men Wo men 1/2 Avg.Risk 1.0 1.5 Avg.Risk 3.6 3.2 2X Avg.Risk 6.2 5.0 3X Avg.Risk 8.0 6.1 PATIENT WAS FASTINGP ERFORMED BY: CODY [facility]6370 [facility] [id number] Cholesterol in VLDL [Mass/Vol] 67 mg/dL Abnormal 5-40 [facility] Work Phone: Comment on above: PATIENT WAS FASTINGP ERFORMED BY: CODY [facility] Qihepw6912 [facility] [id number] Triglyceride [Mass/Vol] 336 mg/dL Abnormal 0-149 [facility] Work Phone: Comment on above: PATIENT WAS FASTINGP ERFORMED BY: CODY [facility] Qirvsg1287 [facility] [id number] METABOLIC PANEL, COMPREHENSI VE (03674)Ordered By: Manager Clinical Services on 01-14-2020 Albumin [Mass/Vol] 4.3 g/dL Normal 3.8-4.8 Compre hensive Internal Medicine Work Phone: Comment on above: PATIENT WAS FASTINGP ERFORMED BY: CODY Bridges6[address]Dublin [place] [id number] Albumin/Globulin [Mass ratio] 1.7 {ratio} Normal 1.2-2.2 [facility] Work Phone: Comment on above: PATIENT WAS FASTINGP ERFORMED BY: CODY Bridges6[address]Dublin [place] [id number] ALP [Catalytic activity/Vol] 101 [iU]/L Normal 39-117 [facility] Work Phone: Comment on above: PATIENT WAS FASTINGP ERFORMED BY: CODY Bridges[address]Dublin [place] [id number] ALP [Catalytic activity/Vol] 101 U/L Normal 39-117 [facility]; [facility] Work Phone: Comment on above: PATIENT WAS FASTINGP ERFORMED BY: CODY Azael Bridges[address]Dublin [place] [id number] ALT [Catalytic activity/Vol] 9 [iU]/L Normal 0-32 [facility] Work Phone: Comment on above: PATIENT WAS FASTINGP ERFORMED BY: Azael Bridges6[address]Dublin [place] [id number] ALT [Catalytic activity/Vol] 9 U/L Normal 0-32 [facility]; [facility] Work Phone: Comment on above: PATIENT WAS FASTINGP ERFORMED BY: Azael Yeunglin6370 [address] RoadDublin [place] [id number] AST [Catalytic activity/Vol] 11 [iU]/L Normal 0-40 [facility] Work Phone: Comment on above: PATIENT WAS FASTINGP ERFORMED BY: CODY Yeunglin6370 [address] RoadDublin [place] [id number] AST [Catalytic activity/Vol] 11 U/L Normal 0-40 [facility]; [facility] Work Phone: Comment on above: PATIENT WAS FASTINGP ERFORMED BY: [facility] Roekwb3856 [address] RoadDublin [place] [id number] Bilirubin [Mass/Vol] 0.4 mg/dL Normal 0.0-1.2 [facility] Work Phone: Comment on above: PATIENT WAS FASTINGP ERFORMED BY: [facility] Qafmuf1982 [address] RoadDublin [place] [id number] Calcium [Mass/Vol] 9.1 mg/dL Normal 8.7-10.3 [facility] Internal Medicine Work Phone: Comment on above: PATIENT WAS FASTINGP ERFORMED BY: [facility] Ngnirr4881 [address] RoadDublin [place] [id number] Chloride [Moles/Vol] 102 mmol/L Normal 96-106 [facility]erens[facility] Internal [facility] Work Phone: Comment on above: PATIENT WAS FASTINGP ERFORMED BY: [facility] Zcfrbj3470 [address] RoadDublin [place] [id number] CO2 [Moles/Vol] 25 mmol/L Normal 20-29 [facility] Internal Medicine Work Phone: Comment on above: PATIENT WAS FASTINGP ERFORMED BY: [facility] Kefwxo2257 [address] RoadDublin [place] [id number] Creatinine [Mass/Vol] 0.62 mg/dL Normal 0.57-1.00 [facility] Internal Medicine Work Phone: Comment on above: PATIENT WAS FASTINGP ERFORMED BY: [facility] Hxurbf2936 [address] RoadDublin [place] [id number] GFR/1.73 sq M predicted among blacks CKD-EPI (S/P/Bld) [Vol rate/Area] 110 mL/min/1.73 Normal [facility] Work Phone: Comment on above: PATIENT WAS FASTINGP ERFORMED BY: [facility] Apmqyz9173 [address] RoadDublin [place] [id number] GFR/1.73 sq M predicted among non-blacks CKD-EPI (S/P/Bld) [Vol rate/Area] 96 mL/min/1.73 Normal [facility] Work Phone: Comment on above: PATIENT WAS FASTINGP ERFORMED BY: CODY [facility] Ltpcin1342 [address] Roadblin [place] [id number] Globulin (S) [Mass/Vol] 2.6 g/dL Normal 1.5-4.5 [facility] Internal Medicine Work Phone: Comment on above: PATIENT WAS FASTINGP ERFORMED BY: CODY [facility] Jrufrp[address] [facility]in [place] [id number] Glucose [Mass/Vol] 130 mg/dL Abnormal 65-99 [facility] Internal Medicine Work Phone: Comment on above: PATIENT WAS FASTINGP ERFORMED BY: CODY [facility] Xzugtn4253 [address] [facility] [id number] Potassium [Moles/Vol] 4.0 mmol/L Normal 3.5-5.2 [facility] Internal Medicine Work Phone: Comment on above: PATIENT WAS FASTINGP ERFORMED BY: CODY Aden Pcebzl2352 [address] [facility] [id number] Protein [Mass/Vol] 6.9 g/dL Normal 6.0-8.5 [facility] Internal Medicine Work Phone: Comment on above: PATIENT WAS FASTINGP ERFORMED BY: CODY Aden Mqrstj7[address] [facility]in [place] [id number] Sodium [Moles/Vol] 144 mmol/L Normal 134-144 [facility] Internal Medicine Work Phone: Comment on above: PATIENT WAS FASTINGP ERFORMED BY: CODY [facility] [facility]in [place] [id number] Urea nitrogen [Mass/Vol] 20 mg/dL Normal 8-27 [facility] Internal Medicine Work Phone: Comment on above: PATIENT WAS FASTINGP ERFORMED BY: CODY LabKeagan Krmtnt2657 [address] [facility]bl[facility] [place] [id number] Urea nitrogen/Creatinine [Mass ratio] 32 mg/mg Abnormal 12-28 [facility] Internal Medicine Work Phone: Comment on above: PATIENT WAS FASTINGP ERFORMED BY: CB [facility] Srnayh1196 [address] RoadDublin [place] [id number] TSH (THYROID STIMULATING HOR CECILIA) (69127)Ordered By: Manager Clinical Services on 01-14-2020 TSH Qn 2.670 {uIU/mL} Normal 0.450-4.500 [facility] Internal Medicine Work Phone: Comment on above: PATIENT WAS FASTINGP ERFORMED BY: [facility] Avjhdl0030 Eldridge RoadDublPineville Community Hospital [id number] Blood Glucose , Office ([phone])Ordered By: Tracy Kapadia on 05-06-2019 Glucose Glucometer (BldC) [Moles/Vol] 179 1 Normal [facility] Work Phone: HgA1C , Office ([phone])Ordere d By: Madelin Alberto on 05-06-2019 HbA1c (Bld) [Mass fraction] 8.0 % Abnormal 4.6 - 7.1 [facility] Work Phone: Blood Glucose , Office ([phone])Ordered By: Tracy Kapadia on 01-28-2019 Glucose Glucometer (BldC) [Moles/Vol] 132 1 Normal [facility] Work Phone: HgA1C , Office ([phone])Ordere d By: Tracy Kapadia on 01-28-2019 HbA1c (Bld) [Mass fraction] 7.9 % Abnormal 4.6 - 7.1 [facility] Work Phone: CALCIFIDIOL ([phone]) VIT D 25 Ordered By: Manager Clinical Services on 01-22-2019 25-Hydroxyvitamin D2+25-Hydroxyvitamin D3 [Mass/Vol] 21.8 ng/mL Abnormal 30.0-100.0 [facility] Work Phone: Comment on above: Vitamin D deficiency has been defined by the [place] of[place]icine and an Endocrine Society practice guideline as alevel of serum 25-OH vitamin D less than 20 ng/mL (1,2).The Endocrine Society went on to further define vitamin Dinsufficiency as a level between 21 and 29 ng/mL (2).1. IOM ([place] of [place]). 2010. Dietary reference intakes for calcium and D. [place]: The National Academies Press.2. Jenna MF, Melissa NC, Faraz DOWD, et al. Evaluation, treatment, and prevention of vitamin D deficiency: an Endocrine Society clinical practice guideline. JCEM. 2010; 96(7):1911-30. PATIENT WAS FASTINGP ERFORMED BY: [facility] Oaudah3854 [address] RoadDublin [place] [id number] CBC W/AUTO DIFF WBC (77439)O rdered By: Manager Clinical Services on 01-22-2019 Basophils (Bld) [#/Vol] 0.0 {x10E3/uL} Normal 0.0-0.2 [facility] Work Phone: Comment on above: PATIENT WAS FASTINGP ERFORMED BY: [facility] Xghjip3907 [address] RoadDublin [place] [id number] Basophils (Bld) [#/Vol] 0.0 10*3/uL Normal 0.0-0.2 [facility]; [facility] Work Phone: Comment on above: PATIENT WAS FASTINGP ERFORMED BY: [facility] Lfntlo9209 [address] RoadDublin [place] [id number] Basophils/100 WBC (Bld) 0 % Normal [facility] Work Phone: Comment on above: PATIENT WAS FASTINGP ERFORMED BY: [facility] Ojbuii1229 [address] RoadDublin [place] [id number] Eosinophils (Bld) [#/Vol] 0.2 {x10E3/uL} Normal 0.0-0.4 [facility] Work Phone: Comment on above: PATIENT WAS FASTINGP ERFORMED BY: [facility] Sbymhr2038 [address] RoadDublin [place] [id number] Eosinophils (Bld) [#/Vol] 0.2 10*3/uL Normal 0.0-0.4 [facility]; [facility] Work Phone: Comment on above: PATIENT WAS FASTINGP ERFORMED BY: [facility] Zuivbv5453 [address] RoadDublin [place] [id number] Eosinophils/100 WBC (Bld) 3 % Normal [facility] Work Phone: Comment on above: PATIENT WAS FASTINGP ERFORMED BY: [facility] Ymfocs3770 [facility] [id number] Erythrocyte distribution width (RBC) [Ratio] 13.5 % Normal 12.3-15.4 [facility] Work Phone: Comment on above: PATIENT WAS FASTINGP ERFORMED BY: [facility]CoNewton [facility] CenterNzuodx1000 [facility] [id number] Hematocrit (Bld) [Volume fraction] 43.6 % Normal 34.0-46.6 [facility] Work Phone: Comment on above: PATIENT WAS FASTINGP ERFORMED BY: [facility]6370 [facility] [id number] Hemoglobin (Bld) [Mass/Vol] 14.7 g/dL Normal 11.1-15.9 [facility] Work Phone: Comment on above: PATIENT WAS FASTINGP ERFORMED BY: [facility]6370 [facility] [id number] Immature granulocytes (Bld) [#/Vol] 0.0 {x10E3/uL} Normal 0.0-0.1 [facility] Work Phone: Comment on above: PATIENT WAS FASTINGP ERFORMED BY: [facility] Sjkvgv7696 [facility] [id number] Immature granulocytes (Bld) [#/Vol] 0.0 10*3/uL Normal 0.0-0.1 [facility]; [facility] Work Phone: Comment on above: PATIENT WAS FASTINGP ERFORMED BY: [facility] Rrhwzt9451 [address] [facility] [id number] Immature granulocytes/100 WBC (Bld) 0 % Normal [facility] Work Phone: Comment on above: PATIENT WAS FASTINGP ERFORMED BY: [facility] Kbnwef2150 [address] [facility] [id number] Lymphocytes (Bld) [#/Vol] 2.2 {x10E3/uL} Normal 0.7-3.1 [facility] Work Phone: Comment on above: PATIENT WAS FASTINGP ERFORMED BY: CODY [facility] Yydumv1603 [address] [facility] [place] [id number] Lymphocytes (Bld) [#/Vol] 2.2 10*3/uL Normal 0.7-3.1 [facility]; [facility] Work Phone: Comment on above: PATIENT WAS FASTINGP ERFORMED BY: [facility]6370 [address] [facility] [place] [id number] Lymphocytes/100 WBC (Bld) 34 % Normal [facility] Work Phone: Comment on above: PATIENT WAS FASTINGP ERFORMED BY: CODY [facility] Tryzpt6252 [address] [facility] [id number] MCH (RBC) [Entitic mass] 30.4 pg Normal 26.6-33.0 [facility] Internal Medicine Work Phone: Comment on above: PATIENT WAS FASTINGP ERFORMED BY: [facility]6[address] [facility] [place] [id number] MCHC (RBC) [Mass/Vol] 33.7 g/dL Normal 31.5-35.7 [facility] Internal Medicine Work Phone: Comment on above: PATIENT WAS FASTINGP ERFORMED BY: CODY [facility]6370 [facility] [place] [id number] MCV (RBC) [Entitic vol] 90 fL Normal 79-97 [facility] Work Phone: Comment on above: PATIENT WAS FASTINGP ERFORMED BY: [facility] Xomnnc2360 [address] [facility] [place] [id number] Monocytes (Bld) [#/Vol] 0.4 {x10E3/uL} Normal 0.1-0.9 [facility] Work Phone: Comment on above: PATIENT WAS FASTINGP ERFORMED BY: [facility]6370 [address]Dublin [place] [id number] Monocytes (Bld) [#/Vol] 0.4 10*3/uL Normal 0.1-0.9 [facility]; [facility] Work Phone: Comment on above: PATIENT WAS FASTINGP ERFORMED BY: CODY [facility] Xpcltj7401 [address] RoadDublin [place] [id number] Monocytes/100 WBC (Bld) 6 % Normal [facility] Work Phone: Comment on above: PATIENT WAS FASTINGP ERFORMED BY: CB [facility] Dhldsv3690 [address] RoadDublin [place] [id number] Neutrophils (Bld) [#/Vol] 3.6 {x10E3/uL} Normal 1.4-7.0 [facility] Work Phone: Comment on above: PATIENT WAS FASTINGP ERFORMED BY: CODY [facility] Dmyjgg7973 [address] RoadDublin [place] [id number] Neutrophils (Bld) [#/Vol] 3.6 10*3/uL Normal 1.4-7.0 [facility]; [facility] Work Phone: Comment on above: PATIENT WAS FASTINGP ERFORMED BY: CODY [facility] Ozbarv5568 [address] RoadDublin [place] [id number] Neutrophils/100 WBC (Bld) 57 % Normal [facility] Work Phone: Comment on above: PATIENT WAS FASTINGP ERFORMED BY: CODY [facility] Cgddkr5727 [address] RoadDublin [place] [id number] Platelets (Bld) [#/Vol] 235 {x10E3/uL} Normal 150-379 [facility] Work Phone: Comment on above: PATIENT WAS FASTINGP ERFORMED BY: CB [facility] Bomnbl8446 [address] RoadDublin [place] [id number] Platelets (Bld) [#/Vol] 235 10*3/uL Normal 150-379 [facility]; [facility] Work Phone: Comment on above: PATIENT WAS FASTINGP ERFORMED BY: CB [facility] Bzxosf7847 [address] RoadDublin [place] [id number] RBC (Bld) [#/Vol] 4.83 {x10E6/uL} Normal 3.77-5.28 [facility] Work Phone: Comment on above: PATIENT WAS FASTINGP ERFORMED BY: CODY LabCosandy BridgesWhsjrq5371 [address] RoadDublin [place] [id number] RBC (Bld) [#/Vol] 4.83 10*6/uL Normal 3.77-5.28 [facility]erens[facility]; [facility] Work Phone: Comment on above: PATIENT WAS FASTINGP ERFORMED BY: CODY [facility] Gjienh2714 [address] Roadblin [place] [id number] WBC (Bld) [#/Vol] 6.4 {x10E3/uL} Normal 3.4-10.8 [facility] Internal Medicine Work Phone: Comment on above: PATIENT WAS FASTINGP ERFORMED BY: CODY [facility] Thmufi7541 [address] [facility] [place] [id number] WBC (Bld) [#/Vol] 6.4 10*3/uL Normal 3.4-10.8 [facility] Internal [facility]; [facility] Work Phone: Comment on above: PATIENT WAS FASTINGP ERFORMED BY: CODY LabCos[facility] Tskfpz8257 [address] [facility] [place] [id number] LIPID PANEL ([id number])Ordered B y: Manager Clinical Services on 01-22-2019 Cholesterol [Mass/Vol] 204 mg/dL Abnormal 100-199 Co [facility]ensive [facility] Work Phone: Comment on above: PATIENT WAS FASTINGP ERFORMED BY: CODY [facility] Ohfunp9252 [address] [facility] [place] [id number] Cholesterol in HDL [Mass/Vol] 36 mg/dL Abnormal [facility] Work Phone: Comment on above: PATIENT WAS FASTINGP ERFORMED BY: CODY [facility] Lzgtbw2731 [address] [facility] [place] [id number] Cholesterol in LDL [Mass/Vol] 129 mg/dL Abnormal 0-99 [facility] Work Phone: Comment on above: PATIENT WAS FASTINGP ERFORMED BY: CODY [facility] Lfeezs3848 [address] [facility] [id number] Cholesterol in LDL/Cholesterol in HDL [Mass ratio] 3.6 {ratio} Abnormal 0.0-3.2 [facility] Work Phone: Comment on above: LDL/HDL Ratio Men Wo men 1/2 Avg.Risk 1.0 1.5 Avg.Risk 3.6 3.2 2X Avg.Risk 6.2 5.0 3X Avg.Risk 8.0 6.1 PATIENT WAS FASTINGP ERFORMED BY: CODY [facility] Aqctzl[address] BandspeedOn License Of [facility] Centerin [place] [id number] Cholesterol in VLDL [Mass/Vol] 39 mg/dL Normal 5-40 [facility] Work Phone: Comment on above: PATIENT WAS FASTINGP ERFORMED BY: CODY LabCoCrownpoint Healthcare FacilityPjvppk1152 [address] [facility] [id number] Triglyceride [Mass/Vol] 197 mg/dL Abnormal 0-149 [facility] Work Phone: Comment on above: PATIENT WAS FASTINGP ERFORMED BY: CODY [facility] Uivvpw4930 [address] [facility] [id number] METABOLIC PANEL, COMPREHENSI VE ([id number])Ordered By: Manager Clinical Services on 01-22-2019 Albumin [Mass/Vol] 4.0 g/dL Normal 3.6-4.8 [facility] Internal Medicine Work Phone: Comment on above: PATIENT WAS FASTINGP ERFORMED BY: [facility] Cbrdpo7037 [facility]in [place] [id number] Albumin/Globulin [Mass ratio] 1.4 {ratio} Normal 1.2-2.2 [facility] Work Phone: Comment on above: PATIENT WAS FASTINGP ERFORMED BY: [facility] Zuixwv4994 [address] [facility] [place] [id number] ALP [Catalytic activity/Vol] 103 [iU]/L Normal 39-117 [facility] Work Phone: Comment on above: PATIENT WAS FASTINGP ERFORMED BY: [facility] Jcwdvn8518 [address] [facility] [place] [id number] ALP [Catalytic activity/Vol] 103 U/L Normal 39-117 [facility]; [facility] Work Phone: Comment on above: PATIENT WAS FASTINGP ERFORMED BY: [facility] Lfhtlw9275 [address] RoadDublin [place] [id number] ALT [Catalytic activity/Vol] 14 [iU]/L Normal 0-32 [facility] Work Phone: Comment on above: PATIENT WAS FASTINGP ERFORMED BY: [facility] Eaffeu9934 [address] RoadDublin [place] [id number] ALT [Catalytic activity/Vol] 14 U/L Normal 0-32 [facility]; [facility] Work Phone: Comment on above: PATIENT WAS FASTINGP ERFORMED BY: [facility] Qewerx1915 [address] RoadDublin [place] [id number] AST [Catalytic activity/Vol] 15 [iU]/L Normal 0-40 [facility] Work Phone: Comment on above: PATIENT WAS FASTINGP ERFORMED BY: [facility] Mhsipw9295 [address] RoadDublin [place] [id number] AST [Catalytic activity/Vol] 15 U/L Normal 0-40 [facility]; [facility] Internal Medicine Work Phone: Comment on above: PATIENT WAS FASTINGP ERFORMED BY: [facility] Mbossw7371 [address] RoadDublin [place] [id number] Bilirubin [Mass/Vol] 0.3 mg/dL Normal 0.0-1.2 [facility] Work Phone: Comment on above: PATIENT WAS FASTINGP ERFORMED BY: [facility] Ugfdfn9024 [address] RoadDublin [place] [id number] Calcium [Mass/Vol] 8.8 mg/dL Normal 8.7-10.3 [facility] Internal Medicine Work Phone: Comment on above: PATIENT WAS FASTINGP ERFORMED BY: [facility] Ptzacw8961 [address] RoadDublin [place] [id number] Chloride [Moles/Vol] 104 mmol/L Normal 96-106 [facility] Work Phone: Comment on above: PATIENT WAS FASTINGP ERFORMED BY: CB [facility] Xdsuek9784 [address] RoadDublin [place] [id number] CO2 [Moles/Vol] 26 mmol/L Normal 20-29 [facility] Internal Medicine Work Phone: Comment on above: PATIENT WAS FASTINGP ERFORMED BY: CB [facility] Urfveo1013 [address] RoadDublin [place] [id number] Creatinine [Mass/Vol] 0.55 mg/dL Abnormal 0.57-1.00 [facility] Internal Medicine Work Phone: Comment on above: PATIENT WAS FASTINGP ERFORMED BY: CB [facility] Xukcix8102 [address] RoadDublin [place] [id number] GFR/1.73 sq M predicted among blacks CKD-EPI (S/P/Bld) [Vol rate/Area] 115 mL/min/1.73 Normal [facility] Work Phone: Comment on above: PATIENT WAS FASTINGP ERFORMED BY: CB [facility] Mbjljv8534 [address] RoadDublin [place] [id number] GFR/1.73 sq M predicted among non-blacks CKD-EPI (S/P/Bld) [Vol rate/Area] 100 mL/min/1.73 Normal [facility] Work Phone: Comment on above: PATIENT WAS FASTINGP ERFORMED BY: CB [facility] Xfjags5720 [address] RoadDublin [place] [id number] Globulin (S) [Mass/Vol] 2.9 g/dL Normal 1.5-4.5 [facility] Internal Medicine Work Phone: Comment on above: PATIENT WAS FASTINGP ERFORMED BY: CB [facility] Rfsljp3358 [address] RoadDublin [place] [id number] Glucose [Mass/Vol] 154 mg/dL Abnormal 65-99 [facility] Internal Medicine Work Phone: Comment on above: PATIENT WAS FASTINGP ERFORMED BY: CB [facility] Zilprb4144 [address] RoadDublin [place] [id number] Potassium [Moles/Vol] 4.2 mmol/L Normal 3.5-5.2 [facility] Internal Medicine Work Phone: Comment on above: PATIENT WAS FASTINGP ERFORMED BY: [facility] Kvhfva6423 [address] [facility] [id number] Protein [Mass/Vol] 6.9 g/dL Normal 6.0-8.5 [facility] Internal Medicine Work Phone: Comment on above: PATIENT WAS FASTINGP ERFORMED BY: CB [facility] Deeuxe5306 [address] [facility] [id number] Sodium [Moles/Vol] 147 mmol/L Abnormal 134-144 [facility] Internal Medicine Work Phone: Comment on above: PATIENT WAS FASTINGP ERFORMED BY: [facility] Tbuxaj4553 [facility] [id number] Urea nitrogen [Mass/Vol] 16 mg/dL Normal 8-27 [facility] Internal Medicine Work Phone: Comment on above: PATIENT WAS FASTINGP ERFORMED BY: [facility] Lbmszh2695 [facility] [id number] Urea nitrogen/Creatinine [Mass ratio] 29 mg/mg Abnormal 12- [facility] Internal Medicine Work Phone: Comment on above: PATIENT WAS FASTINGP ERFORMED BY: [facility] Gppdgx3040 [facility] [id number] TSH ([id number])Ordered By: Alec Gaviria on 01-22-2019 TSH Qn 2.820 {uIU/mL} Normal 0.450-4.500 [facility] Internal Medicine Work Phone: Comment on above: PATIENT WAS FASTINGP ERFORMED BY: [facility] Mfxzkk7601 [address] [facility] [id number] Rapid Flu (12680 x 2)Ordered By: Bernarda Minaya on 08-20-2018 FLUAV Ag IA Ql (Throat) Negative Normal [facility] Work Phone: FLUAV Ag IA Ql (Throat) Negative Normal [facility]; [facility] Work Phone: Rapid Strep Test, Office ([phone])Ordered By: Bernarda Minaya on 08-20-2018 S. pyogenes Ag EIA Ql (Throat) Negative Normal [facility]; [facility] Work Phone: S. pyogenes Ag IA Ql (Unsp spec) Negative Normal [facility] Work Phone: Blood Glucose , Office ([phone])Ordered By: Kiki Cain on 07-02-2018 Glucose Glucometer molar conc (BldC) 164 1 Normal [facility] Work Phone: HgA1C , Office ([phone])Ordere d By: Kiki Cain on 07-02-2018 Hemoglobin A1c/Hemoglobin.total mass fraction (Bld) 7.8 % Abnormal 4.6 - 7.1 [facility] Work Phone: HgA1C , Office ([phone])Ordere d By: Kiki Cain on 03-05-2018 Hemoglobin A1c/Hemoglobin.total mass fraction (Bld) 7.5 % Abnormal 4.6 - 7.1 [facility] Work Phone: CALCIFEDIOL ([phone])Ordered B y: Manager Clinical Services on 02-21-2018 25-Hydroxyvitamin D2+25-Hydroxyvitamin D3 mass conc 26.6 ng/mL Abnormal 30.0-100.0 [facility] Work Phone: Comment on above: Vitamin D deficiency has been defined by the [place] of[employer]icine and an Endocrine Society practice guideline as alevel of serum 25-OH vitamin D less than 20 ng/mL (1,2).The Endocrine Society went on to further define vitamin Dinsufficiency as a level between 21 and 29 ng/mL (2).1. IOM ([place] of [employer]). 2010. Dietary reference intakes for calcium and D. [place]: The National Academies Press.2. Jenna MF, Melissa NC, Faraz DOWD, et al. Evaluation, treatment, and prevention of vitamin D deficiency: an Endocrine Society clinical practice guideline. JCEM. 2010; 96(7):1911-30. PATIENT WAS FASTINGP ERFORMED BY: [facility] Wsxnoo3247 [facility] [id number] CBC W/AUTO DIFF WBC (52650)O rdered By: Manager Clinical Services on 02-21-2018 Basophils (Bld) [#/Vol] 0.0 {x10E3/uL} Normal 0.0-0.2 [facility] Work Phone: Comment on above: PATIENT WAS FASTINGP ERFORMED BY: [place] [id number] [facility] [id number] Basophils (Bld) [#/Vol] 0.0 10*3/uL Normal 0.0-0.2 [facility]; [facility] Work Phone: Comment on above: PATIENT WAS FASTINGP ERFORMED BY: [address] [id number] Basophils Auto #/vol (Bld) 0.0 {x10E3/uL} Normal 0.0-0.2 [facility] Work Phone: Basophils/100 WBC (Bld) 0 % Normal [facility] Work Phone: Comment on above: PATIENT WAS FASTINGP ERFORMED BY: [address] [id number] Basophils/100 WBC Auto (Bld) 0 % Normal [facility] Work Phone: Eosinophils (Bld) [#/Vol] 0.2 {x10E3/uL} Normal 0.0-0.4 [facility] Work Phone: Comment on above: PATIENT WAS FASTINGP ERFORMED BY: [place] [id number] [facility] [id number] Eosinophils (Bld) [#/Vol] 0.2 10*3/uL Normal 0.0-0.4 [facility]; [facility] Work Phone: Comment on above: PATIENT WAS FASTINGP ERFORMED BY: [place] [id number] [facility] [id number] Eosinophils Auto #/vol (Bld) 0.2 {x10E3/uL} Normal 0.0-0.4 [facility] Work Phone: Eosinophils/100 WBC (Bld) 3 % Normal [facility] Work Phone: Comment on above: PATIENT WAS FASTINGP ERFORMED BY: CODY Markie Igpokp3385 [facility] [id number] Eosinophils/100 WBC Auto (Bld) 3 % Normal [facility] Work Phone: Erythrocyte distribution width (RBC) [Ratio] 13.6 % Normal 12.3-15.4 [facility] Work Phone: Comment on above: PATIENT WAS FASTINGP ERFORMED BY: CODY LizAdelita YeungLlsxtj8806 [facility] [id number] Erythrocyte distribution width Auto Ratio (RBC) 13.6 % Normal 12.3-15.4 [facility] Work Phone: Hematocrit (Bld) [Volume fraction] 43.0 % Normal 34.0-46.6 [facility] Work Phone: Comment on above: PATIENT WAS FASTINGP ERFORMED BY: CODY Yeunglin6370 [facility] [id number] Hematocrit Auto Volume Fraction (Bld) 43.0 % Normal 34.0-46.6 [facility] Work Phone: Hemoglobin mass conc (Bld) 14.4 g/dL Normal 11.1-15.9 [facility] Work Phone: Comment on above: PATIENT WAS FASTINGP ERFORMED BY: CODY Aden Ajuejq5865 [facility] [id number] Immature granulocytes #/vol (Bld) 0.0 {x10E3/uL} Normal 0.0-0.1 [facility] Work Phone: Comment on above: PATIENT WAS FASTINGP ERFORMED BY: CODY Dreamerz FoodsWilliam V[place] [id number] [facility] [id number] Immature granulocytes (Bld) [#/Vol] 0.0 10*3/uL Normal 0.0-0.1 [facility]; [facility] Work Phone: Comment on above: PATIENT WAS FASTINGP ERFORMED BY: [facility]6370 [facility] [id number] Immature granulocytes/100 WBC (Bld) 0 % Normal [facility] Work Phone: Comment on above: PATIENT WAS FASTINGP ERFORMED BY: [place] [id number] [facility] [id number] Lymphocytes (Bld) [#/Vol] 2.1 {x10E3/uL} Normal 0.7-3.1 [facility] Work Phone: Comment on above: PATIENT WAS FASTINGP ERFORMED BY: [address] [id number] Lymphocytes (Bld) [#/Vol] 2.1 10*3/uL Normal 0.7-3.1 [facility]; [facility] Work Phone: Comment on above: PATIENT WAS FASTINGP ERFORMED BY: [place] [id number] [facility] [id number] Lymphocytes Auto #/vol (Bld) 2.1 {x10E3/uL} Normal 0.7-3.1 [facility] Work Phone: Lymphocytes/100 WBC (Bld) 28 % Normal [facility] Work Phone: Comment on above: PATIENT WAS FASTINGP ERFORMED BY: [facility]6370 [facility] [id number] Lymphocytes/100 WBC Auto (Bld) 28 % Normal [facility] Work Phone: MCH (RBC) [Entitic mass] 30.2 pg Normal 26.6-33.0 [facility] Work Phone: Comment on above: PATIENT WAS FASTINGP ERFORMED BY: [place] [id number] [facility] [id number] MCH Auto Entitic mass (RBC) 30.2 pg Normal 26.6-33.0 [facility] Work Phone: MCHC (RBC) [Mass/Vol] 33.5 g/dL Normal 31.5-35.7 [facility] prehensive Internal Medicine Work Phone: Comment on above: PATIENT WAS FASTINGP ERFORMED BY: [facility]6370 [facility] [id number] MCHC Auto mass conc (RBC) 33.5 g/dL Normal 31.5-35.7 [facility] Work Phone: MCV (RBC) [Entitic vol] 90 fL Normal 79-97 [facility] Work Phone: Comment on above: PATIENT WAS FASTINGP ERFORMED BY: [facility]6370 [facility] [id number] MCV Auto Entitic volume (RBC) 90 fL Normal 79-97 [facility] Work Phone: Monocytes (Bld) [#/Vol] 0.4 {x10E3/uL} Normal 0.1-0.9 [facility] Work Phone: Comment on above: PATIENT WAS FASTINGP ERFORMED BY: [facility]6370 [facility] [id number] Monocytes (Bld) [#/Vol] 0.4 10*3/uL Normal 0.1-0.9 [facility]; [facility] Work Phone: Comment on above: PATIENT WAS FASTINGP ERFORMED BY: [facility]6370 [facility] [id number] Monocytes Auto #/vol (Bld) 0.4 {x10E3/uL} Normal 0.1-0.9 [facility] Work Phone: Monocytes/100 WBC (Bld) 6 % Normal [facility] Work Phone: Comment on above: PATIENT WAS FASTINGP ERFORMED BY: [facility]6370 [facility] [id number] Monocytes/100 WBC Auto (Bld) 6 % Normal [facility] Work Phone: Neutrophils (Bld) [#/Vol] 5.0 {x10E3/uL} Normal 1.4-7.0 [facility] Work Phone: Comment on above: PATIENT WAS FASTINGP ERFORMED BY: CODY [facility] Sdlnoa4033 [address] RoadDublin [place] [id number] Neutrophils (Bld) [#/Vol] 5.0 10*3/uL Normal 1.4-7.0 [facility]; [facility] Work Phone: Comment on above: PATIENT WAS FASTINGP ERFORMED BY: CODY [facility] Oatroz1035 [address] RoadDublin [place] [id number] Neutrophils Auto #/vol (Bld) 5.0 {x10E3/uL} Normal 1.4-7.0 [facility] Work Phone: Neutrophils/100 WBC (Bld) 63 % Normal [facility] Work Phone: Comment on above: PATIENT WAS FASTINGP ERFORMED BY: CODY LabCosandy YeungCfvobi8986 [address] RoadDublin [place] [id number] Neutrophils/100 WBC Auto (Bld) 63 % Normal [facility] Work Phone: Platelets (Bld) [#/Vol] 262 {x10E3/uL} Normal 150-379 [facility] Work Phone: Comment on above: PATIENT WAS FASTINGP ERFORMED BY: CODY [facility] Wkgnjb2097 [address] RoadDublin [place] [id number] Platelets (Bld) [#/Vol] 262 10*3/uL Normal 150-379 [facility]; [facility] Work Phone: Comment on above: PATIENT WAS FASTINGP ERFORMED BY: CB [facility] Takuaw7957 [address] RoadDublin [place] [id number] Platelets Auto #/vol (Bld) 262 {x10E3/uL} Normal 150-379 [facility] Work Phone: RBC (Bld) [#/Vol] 4.77 {x10E6/uL} Normal 3.77-5.28 [facility] [facility] Internal Medicine Work Phone: Comment on above: PATIENT WAS FASTINGP ERFORMED BY: CODY [facility] Hlsrtm9153 [address]ridge RoadDublin [place] [id number] RBC (Bld) [#/Vol] 4.77 10*6/uL Normal 3.77-5.28 [facility]; [facility] Work Phone: Comment on above: PATIENT WAS FASTINGP ERFORMED BY: CODY [facility] Tdhzul8421 [facility] [id number] RBC Auto #/vol (Bld) 4.77 {x10E6/uL} Normal 3.77-5.28 [facility] Work Phone: WBC (Bld) [#/Vol] 7.7 {x10E3/uL} Normal 3.4-10.8 [facility] Work Phone: Comment on above: PATIENT WAS FASTINGP ERFORMED BY: CODY [facility]6370 [facility] [id number] WBC (Bld) [#/Vol] 7.7 10*3/uL Normal 3.4-10.8 [facility] Internal Medicine; [facility] Work Phone: Comment on above: PATIENT WAS FASTINGP ERFORMED BY: CODY [facility]6370 [facility] [id number] WBC Auto #/vol (Bld) 7.7 {x10E3/uL} Normal 3.4-10.8 [facility] Work Phone: LIPID PANEL ([phone])Ordered B y: Manager Clinical Services on 02-21-2018 Cholesterol in HDL mass conc 35 mg/dL Abnormal [facility] Work Phone: Comment on above: PATIENT WAS FASTINGP ERFORMED BY: [facility] Jsojya6830 [facility] [id number] Cholesterol in LDL mass conc 147 mg/dL Abnormal 0-99 [facility] Work Phone: Comment on above: PATIENT WAS FASTINGP ERFORMED BY: [facility] Qxskqj0746 [facility] [id number] Cholesterol in LDL/Cholesterol in HDL mass ratio 4.2 {ratio} Abnormal 0.0-3.2 [facility] Work Phone: Comment on above: LDL/HDL Ratio Men Wo men 1/2 Avg.Risk 1.0 1.5 Avg.Risk 3.6 3.2 2X Avg.Risk 6.2 5.0 3X Avg.Risk 8.0 6.1 PATIENT WAS FASTINGP ERFORMED BY: CODY [facility] Vurpss2676 [address] RoadDublin [place] [id number] Cholesterol in VLDL mass conc 45 mg/dL Abnormal 5-40 [facility] Work Phone: Comment on above: PATIENT WAS FASTINGP ERFORMED BY: CODY [facility] Vrdblt1128 [address] Roadblin [place] [id number] Cholesterol mass conc 227 mg/dL Abnormal 100-199 Com prehensive Internal Medicine Work Phone: Comment on above: PATIENT WAS FASTINGP ERFORMED BY: CODY [facility] Qedmiy7517 [address] RoadOn License Of [facility] Centerin [place] [id number] Triglyceride mass conc 227 mg/dL Abnormal 0-149 [facility] hospitalehensive Internal [facility] Work Phone: Comment on above: PATIENT WAS FASTINGP ERFORMED BY: CODY [facility] Amivfd[address] [facility]in [place] [id number] METABOLIC PANEL, COMPREHENSI VE ([id number])Ordered By: Manager Clinical Services on 02-21-2018 Albumin mass conc 4.2 g/dL Normal 3.6-4.8 Compreh ensive Internal Medicine Work Phone: Comment on above: PATIENT WAS FASTINGP ERFORMED BY: CODY [facility] Dosnqx7052 [address] [facility] [place] [id number] Albumin/Globulin mass ratio 1.5 {ratio} Normal 1.2-2.2 [facility] Work Phone: Comment on above: PATIENT WAS FASTINGP ERFORMED BY: CODY [facility] Qumtuh[address] [facility] SystemDublin [place] [id number] ALP [Catalytic activity/Vol] 102 U/L Normal 39-117 [facility]; [facility] Work Phone: Comment on above: PATIENT WAS FASTINGP ERFORMED BY: CODY [facility] Dpypyh4394 [address] RoadDublin [place] [id number] ALP enzyme act/vol 102 [iU]/L Normal 39-117 [facility] Internal Medicine Work Phone: Comment on above: PATIENT WAS FASTINGP ERFORMED BY: CODY [facility] Xsdmwz1802 [address] RoadDublin [place] [id number] ALT [Catalytic activity/Vol] 9 U/L Normal 0-32 [facility]; [facility] Internal Medicine Work Phone: Comment on above: PATIENT WAS FASTINGP ERFORMED BY: CB [facility] Hqwvsz8225 [address] RoadDublin [place] [id number] ALT enzyme act/vol 9 [iU]/L Normal 0-32 [facility] Internal Medicine Work Phone: Comment on above: PATIENT WAS FASTINGP ERFORMED BY: CODY [facility] Qcagfe0957 [address] RoadDublin [place] [id number] AST [Catalytic activity/Vol] 11 U/L Normal 0-40 [facility] Internal Medicine; [facility] Internal Medicine Work Phone: Comment on above: PATIENT WAS FASTINGP ERFORMED BY: [facility] Znmpdp4889 [address] RoadDublin [place] [id number] AST enzyme act/vol 11 [iU]/L Normal 0-40 [facility] Internal Medicine Work Phone: Comment on above: PATIENT WAS FASTINGP ERFORMED BY: [facility] Vaswia5402 [address] RoadDublin [place] [id number] Bilirubin mass conc 0.5 mg/dL Normal 0.0-1.2 [facility] Internal Medicine Work Phone: Comment on above: PATIENT WAS FASTINGP ERFORMED BY: [facility] Yjddgr8409 [address] RoadDublin [place] [id number] Calcium mass conc 9.2 mg/dL Normal 8.7-10.3 [facility] Internal Medicine Work Phone: Comment on above: PATIENT WAS FASTINGP ERFORMED BY: [facility] Yfkxef5889 [address] RoadDublin [place] [id number] Chloride molar conc 101 mmol/L Normal 96-106 [facility] Internal Medicine Work Phone: Comment on above: PATIENT WAS FASTINGP ERFORMED BY: [facility] Hsuevh0778 [address] Roadblin [place] [id number] CO2 molar conc 26 mmol/L Normal 18-29 Comprehens nadya Internal Medicine Work Phone: Comment on above: Effective March 10, 2018 Carbon Dioxide, Total reference interval will be changing to: Age Male Female 0 days - 30 days 16 - 29 16 - 29 31 days - 1 year 15 - 25 15 - 25 2 years - 5 years 17 - 26 17 - 26 6 years - 12 years 19 - 19 - >12 years 20 - 20 - PATIENT WAS FASTINGP ERFORMED BY: [facility] Kbbueb5551 [address] RoadOn License Of [facility] Centerin [place] [id number] Creatinine mass conc 0.62 mg/dL Normal 0.57-1.00 Comp rehensive Internal Medicine Work Phone: Comment on above: PATIENT WAS FASTINGP ERFORMED BY: [facility] Qidlgx1381 [address] RoadOn License Of [facility] Centerin [place] [id number] GFR/1.73 sq M predicted among blacks CKD-EPI vol rate/area (S/P/Bld) 112 mL/min/1.73 Normal [facility] Work Phone: Comment on above: PATIENT WAS FASTINGP ERFORMED BY: [facility] Skuecj2470 [address] [facility]bl[facility] [place] [id number] GFR/1.73 sq M predicted among non-blacks CKD-EPI vol rate/area (S/P/Bld) 97 mL/min/1.73 Normal Comprehensiv e Internal Medicine Work Phone: Comment on above: PATIENT WAS FASTINGP ERFORMED BY: [facility] Kavwlr[address] [facility]in [place] [id number] Globulin (S) [Mass/Vol] 2.8 g/dL Normal 1.5-4.5 [facility] Work Phone: Comment on above: PATIENT WAS FASTINGP ERFORMED BY: [facility] Mtlxmi6[address] [facility]in [place] [id number] Globulin Calculated mass conc (S) 2.8 g/dL Normal 1.5-4.5 [facility] Work Phone: Glucose mass conc 136 mg/dL Abnormal 65-99 Compreh ensive Internal Medicine Work Phone: Comment on above: PATIENT WAS FASTINGP ERFORMED BY: CODY [facility] Jlickz8668 [address] RoadDublin [place] [id number] Potassium molar conc 4.3 mmol/L Normal 3.5-5.2 Comp rehensive Internal Medicine Work Phone: Comment on above: PATIENT WAS FASTINGP ERFORMED BY: CODY [facility] Gluxgb7732 [address] RoadDublin [place] [id number] Protein mass conc 7.0 g/dL Normal 6.0-8.5 Compreh ensive Internal Medicine Work Phone: Comment on above: PATIENT WAS FASTINGP ERFORMED BY: CODY [facility] Whqmic5060 [address] RoadDublin [place] [id number] Sodium molar conc 144 mmol/L Normal 134-144 Compreh ensive Internal Medicine Work Phone: Comment on above: PATIENT WAS FASTINGP ERFORMED BY: CODY [facility] Odladp9986 [address] RoadDublin [place] [id number] Urea nitrogen mass conc 14 mg/dL Normal 8-27 [facility] Work Phone: Comment on above: PATIENT WAS FASTINGP ERFORMED BY: CODY [facility] Mnydnl1828 [address] RoadDublin [place] [id number] Urea nitrogen/Creatinine mass ratio 23 mg/mg Normal 12-28 [facility] Work Phone: Comment on above: PATIENT WAS FASTINGP ERFORMED BY: CODY [facility] Ghachq9835 [address] RoadDublin [place] [id number] MICROALBUMINOrdered By: Syst em Supervisor Quality Control on 02-21-2018 Albumin DL <= 20 mg/L mass conc (U) 134.3 ug/mL Normal [facility] Work Phone: Comment on above: PATIENT NOT FASTINGP ERFORMED BY: CODY [facility] Dyappv0974 [address] RoadDublin [place] [id number] Albumin/Creatinine mass ratio (U) 138.7 {mg/g_creat} Abnormal 0.0-30.0 [facility] Work Phone: Comment on above: PATIENT NOT FASTINGP ERFORMED BY: CODY [facility] Zftetp9889 [facility] [id number] Creatinine mass conc (U) 96.8 mg/dL Normal [facility] Work Phone: Comment on above: PATIENT NOT FASTINGP ERFORMED BY: [facility] Gfhppc1771 [facility] [id number] Microscopic ExaminationOrder ed By: Manager Clinical Services on 02-21-2018 Bacteria LM.HPF #/area (Urine sed) Few Normal [facility] Work Phone: Comment on above: PATIENT NOT FASTINGP ERFORMED BY: [facility] Ymaphi0431 [facility] [id number] Crystals LM Nom (Urine sed) Amorphous Sediment Normal [facility] Work Phone: Comment on above: PATIENT NOT FASTINGP ERFORMED BY: [facility] Zklqzf1002 [facility] [id number] Epithelial cells LM.HPF #/area (Urine sed) 0-10 Normal 0 - 10 [facility] Work Phone: Comment on above: PATIENT NOT FASTINGP ERFORMED BY: [facility] Aypsdv8022 [facility] [id number] Mucus LM Ql (Urine sed) Present Normal [facility] Work Phone: Mucus Ql (Urine sed) Present Normal Comp rehensive Internal Medicine Work Phone: Comment on above: PATIENT NOT FASTINGP ERFORMED BY: [facility] Axyyjk[address] [facility]in [place] [id number] RBC LM.HPF #/area (Urine sed) 0-2 Normal 0 - 2 [facility] Work Phone: Comment on above: PATIENT NOT FASTINGP ERFORMED BY: [facility] Hvtnoh6759 [address] [facility] [id number] Unidentified crystals LM Ql (Urine sed) Present Abnormal [facility] Work Phone: Comment on above: PATIENT NOT FASTINGP ERFORMED BY: CODY [facility] Hdtxnu2262 [address] RoadDublin [place] [id number] WBC LM.HPF #/area (Urine sed) 6-10 Abnormal 0 - 5 [facility] Work Phone: Comment on above: PATIENT NOT FASTINGP ERFORMED BY: CODY [facility] Uhoyqb3291 [address] RoadDublin [place] [id number] TSH ([id number])Ordered By: Syste m Supervisor Quality Control on 02-21-2018 Thyrotropin Qn 4.900 {uIU/mL} Abnormal 0.450-4.500 Compr ehensive Internal Medicine Work Phone: Comment on above: PATIENT WAS FASTINGP ERFORMED BY: CODY [facility] Cfyexf1442 [address] RoadDublin [place] [id number] URINALYSIS, W/ MICRO ([id number]) Ordered By: Manager Clinical Services on 02-21-2018 Appearance Nom (U) Clear Normal Compre hensive Internal Medicine Work Phone: Comment on above: PATIENT NOT FASTINGP ERFORMED BY: CODY [facility] Iwsswe8395 [address] RoadDublin [place] [id number] Bilirubin Ql (U) Negative Normal Comprehe nsive Internal Medicine Work Phone: Comment on above: PATIENT NOT FASTINGP ERFORMED BY: CODY [facility] Wuvhrw7740 [address] RoadDublin [place] [id number] Bilirubin Ql (U) Negative Normal Comprehe nsive Internal Medicine; [facility] Work Phone: Comment on above: PATIENT NOT FASTINGP ERFORMED BY: CODY [facility] Erzizm5137 [address] RoadDublin [place] [id number] Color Nom (U) Yellow Normal Comprehensi ve Internal Medicine Work Phone: Comment on above: PATIENT NOT FASTINGP ERFORMED BY: CB [facility] Acrfoh0552 [address] RoadDublin [place] [id number] Glucose Ql (U) Negative Normal Comprehens nadya Internal Medicine Work Phone: Comment on above: PATIENT NOT FASTINGP ERFORMED BY: CB [facility] Tcajtj0107 [address] RoadDublin [place] [id number] Glucose Ql (U) Negative Normal Comprehens nadya Internal Medicine; [facility] Work Phone: Comment on above: PATIENT NOT FASTINGP ERFORMED BY: COYD LabKeaganrp Trdxlg5542 [address] RoadDublin [place] [id number] Hemoglobin Ql (U) Negative Normal Compreh ensive Internal Medicine Work Phone: Comment on above: PATIENT NOT FASTINGP ERFORMED BY: CODY [facility] Zgwils9469 [address] RoadDublin [place] [id number] Hemoglobin Ql (U) Negative Normal Compreh ensive Internal Medicine; [facility] Work Phone: Comment on above: PATIENT NOT FASTINGP ERFORMED BY: CODY [facility] Rglzrl1839 [address] RoadDublin [place] [id number] Hemoglobin Test strip Ql (U) Negative Normal [facility] Work Phone: Ketones Ql (U) Negative Normal Comprehens nadya Internal Medicine Work Phone: Comment on above: PATIENT NOT FASTINGP ERFORMED BY: CODY [facility] Luxawo2831 [address] RoadDublin [place] [id number] Ketones Ql (U) Negative Normal Comprehens nadya Internal Medicine; [facility] Work Phone: Comment on above: PATIENT NOT FASTINGP ERFORMED BY: CODY [facility] Obgyzk5694 [address] RoadDuin [place] [id number] Leukocyte esterase Test strip Ql (U) Trace Abnormal [facility] Work Phone: Comment on above: PATIENT NOT FASTINGP ERFORMED BY: CODY [facility] Tszmcv8192 [address] RoadDublin [place] [id number] Microscopic observation LM Nom (Urine sed) See below: Normal [facility] Work Phone: Comment on above: Microscopic was neelam cated and was performed. PATIENT NOT FASTINGP ERFORMED BY: CODY [facility] Jyfclg3057 [address] RoadDublin [place] [id number] Nitrite Ql (U) Negative Normal Comprehens nadya Internal Medicine Work Phone: Comment on above: PATIENT NOT FASTINGP ERFORMED BY: CODY [facility] Kncxdc0750 [address] RoadDublin [place] [id number] Nitrite Ql (U) Negative Normal Comprehens nadya Internal Medicine; [facility] Work Phone: Comment on above: PATIENT NOT FASTINGP ERFORMED BY: CODY [facility] Ifqnul0644 [address] RoadDublin [place] [id number] Nitrite Test strip Ql (U) Negative Normal [facility] Work Phone: pH (U) 7.0 [pH] Normal 5.0-7.5 [facility] Work Phone: Comment on above: PATIENT NOT FASTINGP ERFORMED BY: CODY LabCosandy YeungBjikfi6621 [address] RoadDublin [place] [id number] pH Test strip (U) 7.0 [pH] Normal 5.0-7.5 Compreh ensive Internal Medicine Work Phone: Protein Ql (U) 1+ Abnormal Comprehens nadya Internal Medicine Work Phone: Comment on above: PATIENT NOT FASTINGP ERFORMED BY: CODY LabCosandy YeungVitejo4590 [address] RoadDublin [place] [id number] Protein Test strip Ql (U) 1+ Abnormal [facility] Work Phone: Specific gravity Relative Density (U) 1.016 1 Normal 1.005-1.030 Comprehensi ve Internal Medicine Work Phone: Comment on above: PATIENT NOT FASTINGP ERFORMED BY: CODY [facility] Eosfeg5735 [address] RoadDublin [place] [id number] Urobilinogen (U) [Mass/Vol] 1.0 mg/dL Normal 0.2-1.0 [facility]; [facility] Work Phone: Comment on above: PATIENT NOT FASTINGP ERFORMED BY: CODY [facility] Lcghtt0009 [address] RoadDublin [place] [id number] Urobilinogen Test strip mass conc (U) 1.0 mg/dL Normal 0.2-1.0 Comprehensiv e Internal Medicine Work Phone: Comment on above: PATIENT NOT FASTINGP ERFORMED BY: CODY [facility] Xmvhdk0421 [facility] [id number] Blood Glucose , Office ([phone])Ordered By: Kiki Cain on 12-02-2017 Glucose Glucometer molar conc (BldC) 115 1 Normal [facility] Work Phone: HgA1C , Office ([phone])Ordere d By: Kiki Cain on 12-02-2017 Hemoglobin A1c/Hemoglobin.total mass fraction (Bld) 7.4 % Abnormal 4.6 - 7.1 Comprehensiv e Internal Medicine Work Phone: Blood Glucose , Office ([phone])Ordered By: Kiki Cain on 07-31-2017 Glucose Glucometer molar conc (BldC) 160 1 Normal [facility] Work Phone: CALCIFIDIOL ([phone]) VIT D 25 Ordered By: Manager Clinical Services on 07-31-2017 25-Hydroxyvitamin D2+25-Hydroxyvitamin D3 mass conc 16.0 ng/mL Abnormal 30.0-100.0 [facility] Work Phone: Comment on above: Vitamin D deficiency has been defined by the [place] ofMedicine and an Endocrine Society practice guideline as alevel of serum 25-OH vitamin D less than 20 ng/mL (1,2).The Endocrine Society went on to further define vitamin Dinsufficiency as a level between 21 and 29 ng/mL (2).1. IOM ([place] of Medicine). 2010. Dietary reference intakes for calcium and D. [place]: The National Academies Press.2. Jenna MF, Melissa HANSEN, Faraz DOWD, et al. Evaluation, treatment, and prevention of vitamin D deficiency: an Endocrine Society clinical practice guideline. JCEM. 2010; 96(7):1911-30. PATIENT WAS FASTINGP ERFORMED BY: Akosha [facility] Rympkh1750 [facility] [id number] CBC W/AUTO DIFF WBC ([id number])O rdered By: Manager Clinical Services on 07-31-2017 Basophils (Bld) [#/Vol] 0.0 {x10E3/uL} Normal 0.0-0.2 [facility] Work Phone: Comment on above: PATIENT WAS FASTINGP ERFORMED BY: [facility] [facility]in [place] [id number] Basophils (Bld) [#/Vol] 0.0 10*3/uL Normal 0.0-0.2 [facility]; [facility] Work Phone: Comment on above: PATIENT WAS FASTINGP ERFORMED BY: LabWilliam [place] [id number] [facility]in [place] [id number] Basophils Auto #/vol (Bld) 0.0 {x10E3/uL} Normal 0.0-0.2 [facility] Work Phone: Basophils/100 WBC (Bld) 0 % Normal [facility] Work Phone: Comment on above: PATIENT WAS FASTINGP ERFORMED BY: [place] 7510470 [facility] [id number] Basophils/100 WBC Auto (Bld) 0 % Normal [facility] Work Phone: Eosinophils (Bld) [#/Vol] 0.2 {x10E3/uL} Normal 0.0-0.4 [facility] Work Phone: Comment on above: PATIENT WAS FASTINGP ERFORMED BY: [place] 7510470 [facility] [id number] Eosinophils (Bld) [#/Vol] 0.2 10*3/uL Normal 0.0-0.4 [facility]; [facility] Work Phone: Comment on above: PATIENT WAS FASTINGP ERFORMED BY: [facility]6[address] [facility]in [place] [id number] Eosinophils Auto #/vol (Bld) 0.2 {x10E3/uL} Normal 0.0-0.4 [facility] Work Phone: Eosinophils/100 WBC (Bld) 2 % Normal [facility] Work Phone: Comment on above: PATIENT WAS FASTINGP ERFORMED BY: [facility]6[address] [facility] [place] [id number] Eosinophils/100 WBC Auto (Bld) 2 % Normal [facility] Work Phone: Erythrocyte distribution width (RBC) [Ratio] 13.4 % Normal 12.3-15.4 [facility] Work Phone: Comment on above: PATIENT WAS FASTINGP ERFORMED BY: CODY [facility] CenterAdelita YeungKqgdis3387 [facility] [id number] Erythrocyte distribution width Auto Ratio (RBC) 13.4 % Normal 12.3-15.4 [facility] Work Phone: Hematocrit (Bld) [Volume fraction] 43.2 % Normal 34.0-46.6 [facility] Work Phone: Comment on above: PATIENT WAS FASTINGP ERFORMED BY: CODY Yeung[address] [id number] Hematocrit Auto Volume Fraction (Bld) 43.2 % Normal 34.0-46.6 [facility] Work Phone: Hemoglobin mass conc (Bld) 14.7 g/dL Normal 11.1-15.9 [facility] Work Phone: Comment on above: PATIENT WAS FASTINGP ERFORMED BY: CODY Yeung[address] [id number] Immature granulocytes #/vol (Bld) 0.0 {x10E3/uL} Normal 0.0-0.1 [facility] Work Phone: Comment on above: PATIENT WAS FASTINGP ERFORMED BY: CODY [facility] Escldc107[address] [id number] Immature granulocytes (Bld) [#/Vol] 0.0 10*3/uL Normal 0.0-0.1 [facility]; [facility] Work Phone: Comment on above: PATIENT WAS FASTINGP ERFORMED BY: CODY [address] [id number] Immature granulocytes/100 WBC (Bld) 0 % Normal [facility] Work Phone: Comment on above: PATIENT WAS FASTINGP ERFORMED BY: [facility]6370 [facility] [id number] Lymphocytes (Bld) [#/Vol] 2.2 {x10E3/uL} Normal 0.7-3.1 [facility] Work Phone: Comment on above: PATIENT WAS FASTINGP ERFORMED BY: [facility]6370 [facility] [id number] Lymphocytes (Bld) [#/Vol] 2.2 10*3/uL Normal 0.7-3.1 [facility]; [facility] Work Phone: Comment on above: PATIENT WAS FASTINGP ERFORMED BY: [place] 7510470 [facility] [id number] Lymphocytes Auto #/vol (Bld) 2.2 {x10E3/uL} Normal 0.7-3.1 [facility] Work Phone: Lymphocytes/100 WBC (Bld) 32 % Normal [facility] Work Phone: Comment on above: PATIENT WAS FASTINGP ERFORMED BY: [place] 7510470 [facility] [id number] Lymphocytes/100 WBC Auto (Bld) 32 % Normal [facility] Work Phone: MCH (RBC) [Entitic mass] 31.3 pg Normal 26.6-33.0 [facility] Internal Medicine Work Phone: Comment on above: PATIENT WAS FASTINGP ERFORMED BY: [place] 7510470 [facility] [id number] MCH Auto Entitic mass (RBC) 31.3 pg Normal 26.6-33.0 [facility] Internal Medicine Work Phone: MCHC (RBC) [Mass/Vol] 34.0 g/dL Normal 31.5-35.7 [facility] Internal Medicine Work Phone: Comment on above: PATIENT WAS FASTINGP ERFORMED BY: [facility]6370 [facility] [id number] MCHC Auto mass conc (RBC) 34.0 g/dL Normal 31.5-35.7 [facility] Work Phone: MCV (RBC) [Entitic vol] 92 fL Normal 79-97 [facility] Work Phone: Comment on above: PATIENT WAS FASTINGP ERFORMED BY: [facility] Itmhcb0536 [facility] [id number] MCV Auto Entitic volume (RBC) 92 fL Normal 79-97 [facility] Work Phone: Monocytes (Bld) [#/Vol] 0.4 {x10E3/uL} Normal 0.1-0.9 [facility] Work Phone: Comment on above: PATIENT WAS FASTINGP ERFORMED BY: [address] [id number] Monocytes (Bld) [#/Vol] 0.4 10*3/uL Normal 0.1-0.9 [facility]; [facility] Work Phone: Comment on above: PATIENT WAS FASTINGP ERFORMED BY: [place] 7510470 [facility] [id number] Monocytes Auto #/vol (Bld) 0.4 {x10E3/uL} Normal 0.1-0.9 [facility] Work Phone: Monocytes/100 WBC (Bld) 7 % Normal [facility] Work Phone: Comment on above: PATIENT WAS FASTINGP ERFORMED BY: [place] 7510470 [facility] [id number] Monocytes/100 WBC Auto (Bld) 7 % Normal [facility] Work Phone: Neutrophils (Bld) [#/Vol] 4.0 {x10E3/uL} Normal 1.4-7.0 [facility] Work Phone: Comment on above: PATIENT WAS FASTINGP ERFORMED BY: [place] 7510470 [facility] [id number] Neutrophils (Bld) [#/Vol] 4.0 10*3/uL Normal 1.4-7.0 [facility]; [facility] Work Phone: Comment on above: PATIENT WAS FASTINGP ERFORMED BY: CODY Bridges6[address] [place] [id number] Neutrophils Auto #/vol (Bld) 4.0 {x10E3/uL} Normal 1.4-7.0 [facility] Work Phone: Neutrophils/100 WBC (Bld) 59 % Normal [facility] Work Phone: Comment on above: PATIENT WAS FASTINGP ERFORMED BY: CODY LabAdelita Bridges6370 [address]Dublin [place] [id number] Neutrophils/100 WBC Auto (Bld) 59 % Normal [facility] Work Phone: Platelets (Bld) [#/Vol] 217 {x10E3/uL} Normal 150-379 [facility] Work Phone: Comment on above: PATIENT WAS FASTINGP ERFORMED BY: CODY Bridges6370 [address]D[place] [place] [id number] Platelets (Bld) [#/Vol] 217 10*3/uL Normal 150-379 [facility]; [facility] Work Phone: Comment on above: PATIENT WAS FASTINGP ERFORMED BY: CODY Yeunglin6370 [address] RoadDublin [place] [id number] Platelets Auto #/vol (Bld) 217 {x10E3/uL} Normal 150-379 [facility] Work Phone: RBC (Bld) [#/Vol] 4.70 {x10E6/uL} Normal 3.77-5.28 [facility] Internal [facility] Work Phone: Comment on above: PATIENT WAS FASTINGP ERFORMED BY: CODY LabCosandy YeungZfnllu4725 Eldridge RoadDublin [place] [id number] RBC (Bld) [#/Vol] 4.70 10*6/uL Normal 3.77-5.28 [facility]; [facility] Work Phone: Comment on above: PATIENT WAS FASTINGP ERFORMED BY: CODY LabCosandy YeungRfwwwp6298 [facility] [id number] RBC Auto #/vol (Bld) 4.70 {x10E6/uL} Normal 3.77-5.28 [facility] Work Phone: WBC (Bld) [#/Vol] 6.8 {x10E3/uL} Normal 3.4-10.8 [facility] prehensive Internal Medicine Work Phone: Comment on above: PATIENT WAS FASTINGP ERFORMED BY: CODY LabKeagan Qaqwva0211 [facility] [id number] WBC (Bld) [#/Vol] 6.8 10*3/uL Normal 3.4-10.8 [facility]; [facility] Work Phone: Comment on above: PATIENT WAS FASTINGP ERFORMED BY: CODY Markie Zaejsw2706 [facility] [id number] WBC Auto #/vol (Bld) 6.8 {x10E3/uL} Normal 3.4-10.8 [facility] Work Phone: HgA1C , Office ([phone])Ordere d By: Kiki Cain on 07-31-2017 Hemoglobin A1c/Hemoglobin.total mass fraction (Bld) 5.8 % Normal 4.6 - 7.1 Comprehensiv e Internal Medicine Work Phone: LIPID PANEL ([phone])Ordered B y: Manager Clinical Services on 07-31-2017 Cholesterol in HDL mass conc 35 mg/dL Abnormal [facility] Work Phone: Comment on above: PATIENT WAS FASTINGP ERFORMED BY: CODY [facility] Shjytk5297 [facility] [id number] Cholesterol in LDL mass conc 124 mg/dL Abnormal 0-99 [facility] Work Phone: Comment on above: PATIENT WAS FASTINGP ERFORMED BY: CODY [facility] Cjbrud3601 [facility] [id number] Cholesterol in LDL/Cholesterol in HDL mass ratio 3.5 {ratio_units} Abnormal 0.0-3.2 [facility] Work Phone: Comment on above: LDL/HDL Ratio Men Wo men 1/2 Avg.Risk 1.0 1.5 Avg.Risk 3.6 3.2 2X Avg.Risk 6.2 5.0 3X Avg.Risk 8.0 6.1 PATIENT WAS FASTINGP ERFORMED BY: CODY LabAdelita YeungPfmqtb9207 [address] RoadDublin [place] [id number] Cholesterol in VLDL mass conc 54 mg/dL Abnormal 5-40 [facility] Work Phone: Comment on above: PATIENT WAS FASTINGP ERFORMED BY: CODY LabCosandy YeungOgvyfd5900 [address] RoadDublin [place] [id number] Cholesterol mass conc 213 mg/dL Abnormal 100-199 Com prehensive Internal Medicine Work Phone: Comment on above: PATIENT WAS FASTINGP ERFORMED BY: CODY LabAdelita YeungKfgfrl5759 [address] RoadDublin [place] [id number] Triglyceride mass conc 271 mg/dL Abnormal 0-149 [facility] Work Phone: Comment on above: PATIENT WAS FASTINGP ERFORMED BY: CODY Yeunglin6[address]Dublin [place] [id number] METABOLIC PANEL, COMPREHENSI VE ([id number])Ordered By: Manager Clinical Services on 07-31-2017 Albumin mass conc 4.2 g/dL Normal 3.6-4.8 Compreh ensive Internal Medicine Work Phone: Comment on above: PATIENT WAS FASTINGP ERFORMED BY: CODY [facility] Vcmcpp1322 [address] RoadDublin [place] [id number] Albumin/Globulin mass ratio 1.4 {ratio} Normal 1.2-2.2 [facility] Work Phone: Comment on above: PATIENT WAS FASTINGP ERFORMED BY: CODY [facility] Uqhdik1492 [address] RoadDublin [place] [id number] ALP [Catalytic activity/Vol] 101 U/L Normal 39-117 [facility]; [facility] Work Phone: Comment on above: PATIENT WAS FASTINGP ERFORMED BY: CODY [facility] Fwtqaq8000 [address] RoadDublin [place] [id number] ALP enzyme act/vol 101 [iU]/L Normal 39-117 [facility] Internal Medicine Work Phone: Comment on above: PATIENT WAS FASTINGP ERFORMED BY: CB [facility] Zvfeoi1705 [address] RoadDublin [place] [id number] ALT [Catalytic activity/Vol] 12 U/L Normal 0-32 [facility] Internal Medicine; [facility] Internal Medicine Work Phone: Comment on above: PATIENT WAS FASTINGP ERFORMED BY: CB [facility] Aoczsc4748 [address] RoadDublin [place] [id number] ALT enzyme act/vol 12 [iU]/L Normal 0-32 [facility] Internal Medicine Work Phone: Comment on above: PATIENT WAS FASTINGP ERFORMED BY: CB [facility] Bapeqc7146 [address] RoadDublin [place] [id number] AST [Catalytic activity/Vol] 14 U/L Normal 0-40 [facility] Internal Medicine; [facility] Internal Medicine Work Phone: Comment on above: PATIENT WAS FASTINGP ERFORMED BY: CB [facility] Uybccb5841 [address] RoadDublin [place] [id number] AST enzyme act/vol 14 [iU]/L Normal 0-40 [facility] Internal Medicine Work Phone: Comment on above: PATIENT WAS FASTINGP ERFORMED BY: CB [facility] Wiycxo9535 [address] RoadDublin [place] [id number] Bilirubin mass conc 0.3 mg/dL Normal 0.0-1.2 [facility] Internal Medicine Work Phone: Comment on above: PATIENT WAS FASTINGP ERFORMED BY: CB [facility] Mryrxc0203 [address] RoadDublin [place] [id number] Calcium mass conc 9.2 mg/dL Normal 8.7-10.3 [facility] Internal Medicine Work Phone: Comment on above: PATIENT WAS FASTINGP ERFORMED BY: CB [facility] Drlvno3750 [address] RoadDublin [place] [id number] Chloride molar conc 101 mmol/L Normal 96-106 [facility] Internal Medicine Work Phone: Comment on above: PATIENT WAS FASTINGP ERFORMED BY: CB [facility] Nuhasa7811 [address] RoadDublin [place] [id number] CO2 molar conc 22 mmol/L Normal 18-29 Comprehens nadya Internal Medicine Work Phone: Comment on above: PATIENT WAS FASTINGP ERFORMED BY: CB [facility] Rzmkxu8118 [address] RoadDublin [place] [id number] Creatinine mass conc 0.50 mg/dL Abnormal 0.57-1.00 Comp rehensive Internal Medicine Work Phone: Comment on above: PATIENT WAS FASTINGP ERFORMED BY: CB [facility] Ipzkcp6485 [address] RoadDublin [place] [id number] GFR/1.73 sq M predicted among blacks CKD-EPI vol rate/area (S/P/Bld) 121 mL/min/1.73 Normal [facility] Work Phone: Comment on above: PATIENT WAS FASTINGP ERFORMED BY: CB [facility] Bzpaiu5088 [address] RoadDublin [place] [id number] GFR/1.73 sq M predicted among non-blacks CKD-EPI vol rate/area (S/P/Bld) 105 mL/min/1.73 Normal Comprehensiv e Internal Medicine Work Phone: Comment on above: PATIENT WAS FASTINGP ERFORMED BY: CODY [facility] Pltsme6728 [address] Roadblin [place] [id number] Globulin (S) [Mass/Vol] 2.9 g/dL Normal 1.5-4.5 [facility] Work Phone: Comment on above: PATIENT WAS FASTINGP ERFORMED BY: CB [facility] Jctenk8865 [address] Roadblin [place] [id number] Globulin Calculated mass conc (S) 2.9 g/dL Normal 1.5-4.5 [facility] Work Phone: Glucose mass conc 128 mg/dL Abnormal 65-99 Compreh ensive Internal Medicine Work Phone: Comment on above: PATIENT WAS FASTINGP ERFORMED BY: CB [facility] Lyyftu7311 [address] RoadOn License Of Unc Medical Centerin [place] [id number] Potassium molar conc 3.9 mmol/L Normal 3.5-5.2 Comp rehensive Internal Medicine Work Phone: Comment on above: PATIENT WAS FASTINGP ERFORMED BY: CODY Azael Bridges[address] [facility] [place] [id number] Protein mass conc 7.1 g/dL Normal 6.0-8.5 Compreh ensive Internal Medicine Work Phone: Comment on above: PATIENT WAS FASTINGP ERFORMED BY: CODY [facility] [facility] [id number] Sodium molar conc 142 mmol/L Normal 134-144 Compreh ensive Internal Medicine Work Phone: Comment on above: PATIENT WAS FASTINGP ERFORMED BY: CODY [facility] Ckcbjt5361 [facility] [id number] Urea nitrogen mass conc 26 mg/dL Normal 8-27 [facility] Work Phone: Comment on above: PATIENT WAS FASTINGP ERFORMED BY: CODY [facility] Cqkajo8478 [facility] [id number] Urea nitrogen/Creatinine mass ratio 52 mg/mg Abnormal 12- [facility] Work Phone: Comment on above: PATIENT WAS FASTINGP ERFORMED BY: CODY [facility] Ojytqu9979 [facility] [id number] MICROALBUMINOrdered By: Syst em Supervisor Quality Control on 07-31-2017 Albumin DL <= 20 mg/L mass conc (U) 142.4 ug/mL Normal [facility] Work Phone: Comment on above: PATIENT WAS FASTINGP ERFORMED BY: [facility] [facility]in [place] [id number] Albumin/Creatinine mass ratio (U) 169.1 {mg/g_creat} Abnormal 0.0-30.0 [facility] Work Phone: Comment on above: PATIENT WAS FASTINGP ERFORMED BY: [facility] [facility]in [place] [id number] Creatinine mass conc (U) 84.2 mg/dL Normal [facility] Work Phone: Comment on above: PATIENT WAS FASTINGP ERFORMED BY: CODY [facility] Ythubq2614 [address] [facility]bl[facility] [place] [id number] Microscopic ExaminationOrder ed By: Manager Clinical Services on 07-31-2017 Bacteria LM.HPF #/area (Urine sed) Few Normal [facility] Work Phone: Comment on above: PATIENT WAS FASTINGP ERFORMED BY: [facility] Gnqoif8233 [address] RoadDublin [place] [id number] Crystals LM Nom (Urine sed) Calcium Oxalate Normal [facility] Work Phone: Comment on above: PATIENT WAS FASTINGP ERFORMED BY: [facility] Anvmqe30[address] [facility]in [place] [id number] Epithelial cells LM.HPF #/area (Urine sed) 0-10 Normal 0 - 10 [facility] Work Phone: Comment on above: PATIENT WAS FASTINGP ERFORMED BY: [facility] Bahctp[address] [facility]in [place] [id number] Mucus LM Ql (Urine sed) Present Normal [facility] Work Phone: Mucus Ql (Urine sed) Present Normal Comp rehensive Internal Medicine Work Phone: Comment on above: PATIENT WAS FASTINGP ERFORMED BY: CODY [facility] Smmyuc4680 [address] RoadDublin [place] [id number] RBC LM.HPF #/area (Urine sed) 0-2 Normal 0 - 2 [facility] Work Phone: Comment on above: PATIENT WAS FASTINGP ERFORMED BY: [facility] Bajsft2629 [address] Roadblin [place] [id number] Unidentified crystals LM Ql (Urine sed) Present Abnormal [facility] Work Phone: Comment on above: PATIENT WAS FASTINGP ERFORMED BY: [facility] Noedez8935 [address] RoadDublin [place] [id number] WBC LM.HPF #/area (Urine sed) 0-5 Normal 0 - 5 [facility] Work Phone: Comment on above: PATIENT WAS FASTINGP ERFORMED BY: CODY [facility] Jmkgog7735 [address] RoadDublin [place] [id number] TSH ([id number])Ordered By: Syste m Supervisor Quality Control on 07-31-2017 Thyrotropin Qn 2.230 {uIU/mL} Normal 0.450-4.500 Compr ehensive Internal Medicine Work Phone: Comment on above: PATIENT WAS FASTINGP ERFORMED BY: CODY [facility] Gpanop5844 [address] RoadDublin [place] [id number] URINALYSIS, W/ MICRO ([id number]) Ordered By: Manager Clinical Services on 07-31-2017 Appearance Nom (U) Cloudy Abnormal Compre hensive Internal Medicine Work Phone: Comment on above: PATIENT WAS FASTINGP ERFORMED BY: CODY [facility] Tnruye4390 [address] RoadDublin [place] [id number] Bilirubin Ql (U) Negative Normal Comprehe nsive Internal Medicine Work Phone: Comment on above: PATIENT WAS FASTINGP ERFORMED BY: CODY [facility] Vknqem6301 [address] RoadDublin [place] [id number] Bilirubin Ql (U) Negative Normal Comprehe nsive Internal Medicine; [facility] Work Phone: Comment on above: PATIENT WAS FASTINGP ERFORMED BY: CODY LabCosandy Tdmmgn3822 [address] RoadDublin [place] [id number] Color Nom (U) Yellow Normal Comprehensi ve Internal Medicine Work Phone: Comment on above: PATIENT WAS FASTINGP ERFORMED BY: CODY [facility] Edkzkd3983 [address] RoadDublin [place] [id number] Glucose Ql (U) Negative Normal Comprehens nadya Internal Medicine Work Phone: Comment on above: PATIENT WAS FASTINGP ERFORMED BY: CODY [facility] Kekykl4553 [address] RoadDublin [place] [id number] Glucose Ql (U) Negative Normal Comprehens nadya Internal [facility]; [facility] Work Phone: Comment on above: PATIENT WAS FASTINGP ERFORMED BY: CODY [facility] Btgpgk1956 [address] RoadDublin [place] [id number] Hemoglobin Ql (U) Negative Normal Compreh ensive Internal Medicine Work Phone: Comment on above: PATIENT WAS FASTINGP ERFORMED BY: CODY [facility] Vlhusq8577 [address] RoadDublin [place] [id number] Hemoglobin Ql (U) Negative Normal Compreh ensive Internal Medicine; [facility] Work Phone: Comment on above: PATIENT WAS FASTINGP ERFORMED BY: CODY [facility] Meufjx5487 [address] RoadDublin [place] [id number] Hemoglobin Test strip Ql (U) Negative Normal [facility] Work Phone: Ketones Ql (U) Negative Normal Comprehens nadya Internal Medicine Work Phone: Comment on above: PATIENT WAS FASTINGP ERFORMED BY: CODY [facility] Iscmwr8593 [address] RoadDublin [place] [id number] Ketones Ql (U) Negative Normal Comprehens nadya Internal [facility]; [facility] Work Phone: Comment on above: PATIENT WAS FASTINGP ERFORMED BY: CODY [facility] Xxcklg0963 [address] RoadDublin [place] [id number] Leukocyte esterase Test strip Ql (U) Negative Normal [facility] Work Phone: Comment on above: PATIENT WAS FASTINGP ERFORMED BY: CODY [facility] Egfelr9330 [address] RoadDublin [place] [id number] Leukocyte esterase Test strip Ql (U) Negative Normal [facility]; [facility] Work Phone: Comment on above: PATIENT WAS FASTINGP ERFORMED BY: CB [facility] Mtcggo6796 [address] RoadDublin [place] [id number] Microscopic observation LM Nom (Urine sed) See below: Normal [facility] Work Phone: Comment on above: Microscopic was neelam cated and was performed. PATIENT WAS FASTINGP ERFORMED BY: CB [facility] Aoagie6939 [address] RoadDublin [place] [id number] Microscopic observation LM Nom (Urine sed) MICRON Normal [facility] Work Phone: Comment on above: Microscopic follows if indicated. PATIENT WAS FASTINGP ERFORMED BY: CODY LabCosandy YeungOpgjqb3649 [address] RoadDublin [place] [id number] Nitrite Ql (U) Negative Normal Comprehens nadya Internal Medicine Work Phone: Comment on above: PATIENT WAS FASTINGP ERFORMED BY: CODY LabCosandy YeungQnbxdl9516 [address] RoadDublin [place] [id number] Nitrite Ql (U) Negative Normal Comprehens nadya Internal Medicine; [facility] Work Phone: Comment on above: PATIENT WAS FASTINGP ERFORMED BY: CODY [facility] Sbqjai5407 [address] RoadDublin [place] [id number] Nitrite Test strip Ql (U) Negative Normal [facility] Work Phone: pH (U) 5.0 [pH] Normal 5.0-7.5 [facility] Work Phone: Comment on above: PATIENT WAS FASTINGP ERFORMED BY: CODY Yeunglin6370 [address] RoadDublin [place] [id number] pH Test strip (U) 5.0 [pH] Normal 5.0-7.5 Compreh ensive Internal Medicine Work Phone: Protein Ql (U) Trace Normal Comprehens nadya Internal Medicine Work Phone: Comment on above: PATIENT WAS FASTINGP ERFORMED BY: CODY Yeunglin6370 [address] RoadDublin [place] [id number] Protein Test strip Ql (U) Trace Normal [facility] Work Phone: Specific gravity Relative Density (U) 1.026 1 Normal 1.005-1.030 Comprehensi ve Internal Medicine Work Phone: Comment on above: PATIENT WAS FASTINGP ERFORMED BY: CODY [facility] Prykmn6600 [address] RoadDublin [place] [id number] Urobilinogen (U) [Mass/Vol] 1.0 mg/dL Normal 0.2-1.0 [facility]; [facility] Work Phone: Comment on above: PATIENT WAS FASTINGP ERFORMED BY: CODY [facility] Rzazsu0473 [address] RoadDublin [place] [id number] Urobilinogen Test strip mass conc (U) 1.0 mg/dL Normal 0.2-1.0 Comprehensiv e Internal Medicine Work Phone: Comment on above: PATIENT WAS FASTINGP ERFORMED BY: COYD [facility] Xdowjf0248 [facility] [id number] Blood Glucose , Office ([phone])Ordered By: Bernarda Minaya on 04-22-2017 Glucose Glucometer molar conc (BldC) 136 1 Normal [facility] Work Phone: HgA1C , Office ([phone])Ordere d By: Bernarda Minaya on 04-22-2017 Hemoglobin A1c/Hemoglobin.total mass fraction (Bld) 8.1 % Abnormal 4.6 - 7.1 Comprehensiv e Internal Medicine Work Phone: Rapid Flu ([phone] x 2)Ordered By: Bernarda Minaya on 08-17-2016 FLUAV Ag IA Ql (Throat) Negative Normal [facility] Work Phone: FLUAV Ag IA Ql (Throat) Negative Normal [facility]; [facility] Work Phone: CALCIFIDIOL ([phone]) VIT D 25 Ordered By: Manager Clinical Services on 07-01-2015 25-Hydroxyvitamin D2+25-Hydroxyvitamin D3 mass conc 16.4 ng/mL Abnormal 30.0-100.0 [facility] Work Phone: Comment on above: Vitamin D deficiency has been defined by the [place] of[facility] and an Endocrine Society practice guideline as alevel of serum 25-OH vitamin D less than 20 ng/mL (1,2).The Endocrine Society went on to further define vitamin Dinsufficiency as a level between 21 and 29 ng/mL (2).1. IOM ([place] of Medicine). 2010. Dietary reference intakes for calcium and D. [place]: The National Academies Press.2. Jenna GONZALEZ, Melissa HANSEN, Faraz DOWD, et al. Evaluation, treatment, and prevention of vitamin D deficiency: an Endocrine Society clinical practice guideline. JCEM. 2010; 96(7):1911-30. PATIENT WAS FASTINGP ERFORMED BY: [place] [id number] [facility] [id number] CBC W/AUTO DIFF WBC ([id number])O rdered By: Manager Clinical Services on 07-01-2015 Basophils (Bld) [#/Vol] 0.0 {x10E3/uL} Normal 0.0-0.2 [facility] Work Phone: Comment on above: PATIENT WAS FASTINGP ERFORMED BY: [address] [id number] Information: [id number] Basophils (Bld) [#/Vol] 0.0 10*3/uL Normal 0.0-0.2 [facility]; [facility] Work Phone: Comment on above: PATIENT WAS FASTINGP ERFORMED BY: [address] [id number] Information: [id number] Basophils Auto #/vol (Bld) 0.0 {x10E3/uL} Normal 0.0-0.2 [facility] Work Phone: Basophils/100 WBC (Bld) 0 % Normal [facility] Work Phone: Comment on above: PATIENT WAS FASTINGP ERFORMED BY: [place] [id number] [facility] [id number] Information: [id number] Basophils/100 WBC Auto (Bld) 0 % Normal [facility] Work Phone: Eosinophils (Bld) [#/Vol] 0.2 {x10E3/uL} Normal 0.0-0.4 [facility] Work Phone: Comment on above: PATIENT WAS FASTINGP ERFORMED BY: [address] [id number] Information: [id number] Eosinophils (Bld) [#/Vol] 0.2 10*3/uL Normal 0.0-0.4 [facility]; [facility] Work Phone: Comment on above: PATIENT WAS FASTINGP ERFORMED BY: [facility]6370 [facility] [id number] Information: [id number] Eosinophils Auto #/vol (Bld) 0.2 {x10E3/uL} Normal 0.0-0.4 [facility] Work Phone: Eosinophils/100 WBC (Bld) 4 % Normal [facility] Work Phone: Comment on above: PATIENT WAS FASTINGP ERFORMED BY: [address] [id number] Information: [id number] Eosinophils/100 WBC Auto (Bld) 4 % Normal [facility] Work Phone: Erythrocyte distribution width (RBC) [Ratio] 13.4 % Normal 12.3-15.4 [facility] Work Phone: Comment on above: PATIENT WAS FASTINGP ERFORMED BY: [address] [id number] Information: [id number] Erythrocyte distribution width Auto Ratio (RBC) 13.4 % Normal 12.3-15.4 [facility] Work Phone: Hematocrit (Bld) [Volume fraction] 45.7 % Normal 34.0-46.6 [facility] Work Phone: Comment on above: PATIENT WAS FASTINGP ERFORMED BY: [address] [id number] Information: [id number] Hematocrit Auto Volume Fraction (Bld) 45.7 % Normal 34.0-46.6 [facility] Work Phone: Hemoglobin mass conc (Bld) 15.7 g/dL Normal 11.1-15.9 [facility] Work Phone: Comment on above: PATIENT WAS FASTINGP ERFORMED BY: [place] [id number] [facility] [id number] Information: [id number] Immature granulocytes #/vol (Bld) 0.0 {x10E3/uL} Normal 0.0-0.1 [facility] Work Phone: Comment on above: PATIENT WAS FASTINGP ERFORMED BY: [facility] Vijqds8283 [facility] [id number] Information: [id number] Immature granulocytes (Bld) [#/Vol] 0.0 10*3/uL Normal 0.0-0.1 [facility]; [facility] Work Phone: Comment on above: PATIENT WAS FASTINGP ERFORMED BY: [address] [id number] Information: [id number] Immature granulocytes/100 WBC (Bld) 0 % Normal [facility] Work Phone: Comment on above: PATIENT WAS FASTINGP ERFORMED BY: [address] [id number] Information: [id number] Lymphocytes (Bld) [#/Vol] 1.8 {x10E3/uL} Normal 0.7-3.1 [facility] Work Phone: Comment on above: PATIENT WAS FASTINGP ERFORMED BY: [place] [id number] [facility] [id number] Information: [id number] Lymphocytes (Bld) [#/Vol] 1.8 10*3/uL Normal 0.7-3.1 [facility]; [facility] Work Phone: Comment on above: PATIENT WAS FASTINGP ERFORMED BY: [address] [id number] Information: [id number] Lymphocytes Auto #/vol (Bld) 1.8 {x10E3/uL} Normal 0.7-3.1 [facility] Work Phone: Lymphocytes/100 WBC (Bld) 32 % Normal [facility] Work Phone: Comment on above: PATIENT WAS FASTINGP ERFORMED BY: [facility]6370 [facility] [id number] Information: [id number] Lymphocytes/100 WBC Auto (Bld) 32 % Normal [facility] Work Phone: MCH (RBC) [Entitic mass] 30.8 pg Normal 26.6-33.0 [facility] Work Phone: Comment on above: PATIENT WAS FASTINGP ERFORMED BY: [address] [id number] Information: [id number] MCH Auto Entitic mass (RBC) 30.8 pg Normal 26.6-33.0 [facility] Internal Medicine Work Phone: MCHC (RBC) [Mass/Vol] 34.4 g/dL Normal 31.5-35.7 [facility] Work Phone: Comment on above: PATIENT WAS FASTINGP ERFORMED BY: [place] [id number] [facility] [id number] Information: [id number] MCHC Auto mass conc (RBC) 34.4 g/dL Normal 31.5-35.7 [facility] Internal Medicine Work Phone: MCV (RBC) [Entitic vol] 90 fL Normal 79-97 [facility] Internal Medicine Work Phone: Comment on above: PATIENT WAS FASTINGP ERFORMED BY: [address] [id number] Information: [id number] MCV Auto Entitic volume (RBC) 90 fL Normal 79-97 [facility] Internal Medicine Work Phone: Monocytes (Bld) [#/Vol] 0.7 {x10E3/uL} Normal 0.1-0.9 [facility] Internal Medicine Work Phone: Comment on above: PATIENT WAS FASTINGP ERFORMED BY: [place] [id number] [facility] [id number] Information: [id number] Monocytes (Bld) [#/Vol] 0.7 10*3/uL Normal 0.1-0.9 [facility]; [facility] Work Phone: Comment on above: PATIENT WAS FASTINGP ERFORMED BY: CODY Azael Bridges6370 [facility] [id number] Information: [id number] Monocytes Auto #/vol (Bld) 0.7 {x10E3/uL} Normal 0.1-0.9 [facility] Work Phone: Monocytes/100 WBC (Bld) 13 % Normal [facility] Work Phone: Comment on above: PATIENT WAS FASTINGP ERFORMED BY: CODY [facility]andy YeungVcnfed[address] [id number] Information: [id number] Monocytes/100 WBC Auto (Bld) 13 % Normal [facility] Work Phone: Neutrophils (Bld) [#/Vol] 2.9 {x10E3/uL} Normal 1.4-7.0 [facility] Work Phone: Comment on above: PATIENT WAS FASTINGP ERFORMED BY: CODY [facility]alsandy YeungJinefm40[address] [id number] Information: [id number] Neutrophils (Bld) [#/Vol] 2.9 10*3/uL Normal 1.4-7.0 [facility]; [facility] Work Phone: Comment on above: PATIENT WAS FASTINGP ERFORMED BY: [place] [id number] [facility] [id number] Information: [id number] Neutrophils Auto #/vol (Bld) 2.9 {x10E3/uL} Normal 1.4-7.0 [facility] Work Phone: Neutrophils/100 WBC (Bld) 51 % Normal [facility] Work Phone: Comment on above: PATIENT WAS FASTINGP ERFORMED BY: [address] [id number] Information: [id number] Neutrophils/100 WBC Auto (Bld) 51 % Normal [facility] Work Phone: Platelets (Bld) [#/Vol] 215 {x10E3/uL} Normal 150-379 [facility] Work Phone: Comment on above: PATIENT WAS FASTINGP ERFORMED BY: [address] [id number] Information: [id number] Platelets (Bld) [#/Vol] 215 10*3/uL Normal 150-379 [facility] Internal Medicine; [facility] Work Phone: Comment on above: PATIENT WAS FASTINGP ERFORMED BY: CODY [facility]6370 [facility] [id number] Information: [id number] Platelets Auto #/vol (Bld) 215 {x10E3/uL} Normal 150-379 [facility] Work Phone: RBC (Bld) [#/Vol] 5.10 {x10E6/uL} Normal 3.77-5.28 [facility] Internal Medicine Work Phone: Comment on above: PATIENT WAS FASTINGP ERFORMED BY: CODY [facility]6370 [facility] [id number] Information: [id number] RBC (Bld) [#/Vol] 5.10 10*6/uL Normal 3.77-5.28 [facility] Internal Medicine; [facility] Work Phone: Comment on above: PATIENT WAS FASTINGP ERFORMED BY: [place] [id number] [facility] [id number] Information: [id number] RBC Auto #/vol (Bld) 5.10 {x10E6/uL} Normal 3.77-5.28 [facility] Internal Medicine Work Phone: WBC (Bld) [#/Vol] 5.7 {x10E3/uL} Normal 3.4-10.8 [facility] prehensive Internal Medicine Work Phone: Comment on above: PATIENT WAS FASTINGP ERFORMED BY: CODY Aden Vbuong8942 [facility] [id number] Information: [id number] WBC (Bld) [#/Vol] 5.7 10*3/uL Normal 3.4-10.8 Compre [facility]; [facility] Work Phone: Comment on above: PATIENT WAS FASTINGP ERFORMED BY: [facility]6370 [facility] [id number] Information: [id number] WBC Auto #/vol (Bld) 5.7 {x10E3/uL} Normal 3.4-10.8 [facility] Work Phone: HgA1C , Office ([id number])Ordere d By: Bernarda Minaya on 07-01-2015 Hemoglobin A1c/Hemoglobin.total mass fraction (Bld) 7.7 % Abnormal 4.6 - 7.1 Comprehensiv e Internal Medicine Work Phone: LIPID PANEL ([id number])Ordered B y: Manager Clinical Services on 07-01-2015 Cholesterol in HDL mass conc 36 mg/dL Abnormal [facility] Work Phone: Comment on above: According to ATP-III Guidelines, HDL-C >59 mg/dL is considered anegative risk factor for CHD. PATIENT WAS FASTINGP ERFORMED BY: [facility] FoodsScheurer Hospital6370 [facility] [id number] Cholesterol in LDL mass conc 138 mg/dL Abnormal 0-99 [facility] Work Phone: Comment on above: PATIENT WAS FASTINGP ERFORMED BY: [facility]Sche[facility]6370 [facility] [id number] Cholesterol in LDL/Cholesterol in HDL mass ratio 3.8 {ratio_units} Abnormal 0.0-3.2 [facility] Work Phone: Comment on above: LDL/HDL Ratio Men Wo men 1/2 Avg.Risk 1.0 1.5 Avg.Risk 3.6 3.2 2X Avg.Risk 6.2 5.0 3X Avg.Risk 8.0 6.1 PATIENT WAS FASTINGP ERFORMED BY: CODY Yeunglin[address] [facility] [place] [id number] Cholesterol in VLDL mass conc 49 mg/dL Abnormal 5-40 [facility] Work Phone: Comment on above: PATIENT WAS FASTINGP ERFORMED BY: CODY Yeunglin[address] [facility] [place] [id number] Cholesterol mass conc 223 mg/dL Abnormal 100-199 Com prehensive Internal Medicine Work Phone: Comment on above: PATIENT WAS FASTINGP ERFORMED BY: CODY Yeunglin6[address] [facility] [id number] Triglyceride mass conc 245 mg/dL Abnormal 0-149 Co mprehensive Internal Medicine Work Phone: Comment on above: PATIENT WAS FASTINGP ERFORMED BY: CODY Yeunglin6370 [facility] [id number] METABOLIC PANEL, COMPREHENSI VE ([id number])Ordered By: Manager Clinical Services on 07-01-2015 Albumin mass conc 4.5 g/dL Normal 3.5-5.5 Compreh ensive Internal Medicine Work Phone: Comment on above: PATIENT WAS FASTINGP ERFORMED BY: CODY Yeunglin6370 [facility] [place] [id number] Albumin/Globulin mass ratio 1.6 {ratio} Normal 1.1-2.5 [facility] Work Phone: Comment on above: PATIENT WAS FASTINGP ERFORMED BY: CODY LabAdelita Qnwxqr1906 [facility] [id number] ALP [Catalytic activity/Vol] 103 U/L Normal 39-117 [facility]; [facility] Work Phone: Comment on above: PATIENT WAS FASTINGP ERFORMED BY: CODY LabAdelita YeungNfcnzc350[address] [facility] [place] [id number] ALP enzyme act/vol 103 [iU]/L Normal 39-117 Compre hensive Internal Medicine Work Phone: Comment on above: PATIENT WAS FASTINGP ERFORMED BY: CODY LabCosandy YeungGncvsb1573 [address]ridge RoadDublin [place] [id number] ALT [Catalytic activity/Vol] 13 U/L Normal 0-32 [facility]; [facility] Internal Medicine Work Phone: Comment on above: PATIENT WAS FASTINGP ERFORMED BY: CODY LabCosandy YeungUvovlh5331 [address]ridge RoadDublin [place] [id number] ALT enzyme act/vol 13 [iU]/L Normal 0-32 [facility] Internal Medicine Work Phone: Comment on above: PATIENT WAS FASTINGP ERFORMED BY: CODY LabCosandy YeungVlceeq2578 [address] RoadDublin [place] [id number] AST [Catalytic activity/Vol] 16 U/L Normal 0-40 [facility] Internal Medicine; [facility] Internal Medicine Work Phone: Comment on above: PATIENT WAS FASTINGP ERFORMED BY: CODY Yeunglin6370 [address] Road[address]ublin [place] [id number] AST enzyme act/vol 16 [iU]/L Normal 0-40 [facility] Internal Medicine Work Phone: Comment on above: PATIENT WAS FASTINGP ERFORMED BY: CODY LabAdelita YeungGahknc3271 [address] RoadDublin [place] [id number] Bilirubin mass conc 0.5 mg/dL Normal 0.0-1.2 [facility] Internal Medicine Work Phone: Comment on above: PATIENT WAS FASTINGP ERFORMED BY: CODY LabCosandy YeungIfjocl4728 [address] RoadDublin [place] [id number] Calcium mass conc 9.6 mg/dL Normal 8.7-10.2 [facility] Internal Medicine Work Phone: Comment on above: PATIENT WAS FASTINGP ERFORMED BY: CODY LabCosandy Jmowwz2167 [address] RoadDublin [place] [id number] Chloride molar conc 100 mmol/L Normal 97-108 [facility] Internal Medicine Work Phone: Comment on above: PATIENT WAS FASTINGP ERFORMED BY: CODY LabCosandy YeungYfkvip37[address] RoadDublin [place] [id number] CO2 molar conc 27 mmol/L Normal 18-29 Comprehens nadya Internal Medicine Work Phone: Comment on above: PATIENT WAS FASTINGP ERFORMED BY: CODY Bridges6370 [facility] [id number] Creatinine mass conc 0.49 mg/dL Abnormal 0.57-1.00 Comp rehensive Internal Medicine Work Phone: Comment on above: PATIENT WAS FASTINGP ERFORMED BY: [facility]Scheurer Hospital6370 [facility] [id number] GFR/1.73 sq M predicted among blacks CKD-EPI vol rate/area (S/P/Bld) 123 mL/min/1.73 Normal [facility] Work Phone: Comment on above: PATIENT WAS FASTINGP ERFORMED BY: [facility]6370 [facility] [id number] GFR/1.73 sq M predicted among non-blacks CKD-EPI vol rate/area (S/P/Bld) 107 mL/min/1.73 Normal Comprehensiv e Internal Medicine Work Phone: Comment on above: PATIENT WAS FASTINGP ERFORMED BY: [facility] Wukvtv8215 [facility] [id number] Globulin (S) [Mass/Vol] 2.8 g/dL Normal 1.5-4.5 [facility] Work Phone: Comment on above: PATIENT WAS FASTINGP ERFORMED BY: [facility]Sche[facility] Hospital6370 [facility] [id number] Globulin Calculated mass conc (S) 2.8 g/dL Normal 1.5-4.5 [facility] Work Phone: Glucose mass conc 115 mg/dL Abnormal 65-99 Compreh ensive Internal Medicine Work Phone: Comment on above: PATIENT WAS FASTINGP ERFORMED BY: [facility]6370 [facility] [id number] Potassium molar conc 4.4 mmol/L Normal 3.5-5.2 Comp rehensive Internal Medicine Work Phone: Comment on above: PATIENT WAS FASTINGP ERFORMED BY: CODY [facility] Esvjdp3664 [facility] [id number] Protein mass conc 7.3 g/dL Normal 6.0-8.5 Compreh ensive Internal Medicine Work Phone: Comment on above: PATIENT WAS FASTINGP ERFORMED BY: CODY [facility] Tpcmln6273 [facility] [id number] Sodium molar conc 142 mmol/L Normal 134-144 Compreh ensive Internal Medicine Work Phone: Comment on above: PATIENT WAS FASTINGP ERFORMED BY: CODY LabCo Gplxhr6876 [facility] [id number] Urea nitrogen mass conc 13 mg/dL Normal 6-24 [facility] Work Phone: Comment on above: PATIENT WAS FASTINGP ERFORMED BY: CODY [facility] Tigxld0962 [facility] [id number] Urea nitrogen/Creatinine mass ratio 27 mg/mg Abnormal 9-23 [facility] Work Phone: Comment on above: PATIENT WAS FASTINGP ERFORMED BY: CODY [facility] Fvhglv9866 [facility] [id number] TSH ([id number])Ordered By: Syste m Supervisor Quality Control on 07-01-2015 Thyrotropin Qn 3.080 {uIU/mL} Normal 0.450-4.500 Compr ehensive Internal Medicine Work Phone: Comment on above: PATIENT WAS FASTINGP ERFORMED BY: [facility] Rpuilr4578 [facility] [id number] HgA1C , Office ([id number])Ordere d By: Farrah Callaway on 02-16-2015 Hemoglobin A1c/Hemoglobin.total mass fraction (Bld) 7.7 % Abnormal 4.6 - 7.1 Comprehensiv e Internal Medicine Work Phone: Pap IG, HPV-hrOrdered By: Sy stem Supervisor Quality Control on 01-29-2014 HPV 16+18+31+33+35+39+45+5 1+52+56+58+59+68 DNA Probe+sig amp Ql (Cvx) Negative Normal Comprehen [facility] Internal Medicine Work Phone: Comment on above: This high-risk HPV t est detects thirteen high-risk types(16/18/31/33/35/39/45/51/52/56/58/59/68) without differentiation. . PERFORMED BY: [facility]Davis [facility] [id number] BY: =G Particle Code Isabella [facility]BridgeEll[facility] [id number] Information: [id number] Microscopic observation Other stain Nom (Unsp spec) . Normal Comprehkaweah delta medical center Internal Medicine Work Phone: Comment on above: PERFORMED BY: [facility]alsaint [facility] Manifest [id number] BY: =G Particle Code Isabella CleverMilesDavis Hospital and Medical Center [id number] Information: [id number] Pathology report final diagnosis Narrative SPRCS Normal Comprehensiv e Internal Medicine Work Phone: Comment on above: NEGATIVE FOR INTRAEP ITHELIAL LESION AND MALIGNANCY.Satisfactory for evaluation. Endocervical and/or squamous metaplasticcells (endocervical component) are present.Chelsea Vale, Customer Response Representative (ASCP) PERFORMED BY: [facility]Davis [facility] [id number] BY: =G Particle Code Isabella CleverMilesDavis Hospital and Medical Center [id number] Information: [id number] Pap IG, HPV-hr PAPSMR Normal [facility] Internal Medicine Work Phone: Comment on above: The Pap smear is a s creening test designed to aid in the detection ofpremalignant and malignant conditions of the uterine cervix. It is not adiagnostic procedure and should not be used as the sole means of detectingcervical cancer. Both false-positive and false-negative reports do occur. .This liquid based ThinPrep(R) pap test was screened with theuse of an image guided system. PERFORMED BY: [employer] Kqaxsfbtcw[address]michaelLawrence Memorial HospitalalannaEllwood Medical Center [id number] BY: =Eileen LabTembo Studio [address] StreetalannaEllwood Medical Center [id number] Information: [id number] CBC WITH MANUAL DIFF ([id number]) Ordered By: Manager Clinical Services on 01-27-2014 Basophils (Bld) [#/Vol] 0.0 {x10E3/uL} Normal 0.0-0.2 [facility] Work Phone: Comment on above: PERFORMED BY: TagentNovant Health K[facility] [id number] Basophils (Bld) [#/Vol] 0.0 10*3/uL Normal 0.0-0.2 [facility]; [facility] Work Phone: Comment on above: PERFORMED BY: Kuona70 KitLocateNovant Health Kernersville Medical Center [id number] Basophils Auto #/vol (Bld) 0.0 {x10E3/uL} Normal 0.0-0.2 [facility] Work Phone: Basophils/100 WBC (Bld) 0 % Normal 0-3 [facility] Work Phone: Comment on above: PERFORMED BY: [email or web address]6370 KitLocateNovant Health [facility] [id number] Basophils/100 WBC Auto (Bld) 0 % Normal 0-3 [facility] Work Phone: Eosinophils (Bld) [#/Vol] 0.1 {x10E3/uL} Normal 0.0-0.4 [facility] Work Phone: Comment on above: PERFORMED BY: [email or web address] KitLocateNovant Health [facility] [id number] Eosinophils (Bld) [#/Vol] 0.1 10*3/uL Normal 0.0-0.4 [facility]; [facility] Work Phone: Comment on above: PERFORMED BY: Kuona70 [facility] MedicalECU [facility] [id number] Eosinophils Auto #/vol (Bld) 0.1 {x10E3/uL} Normal 0.0-0.4 [facility] Work Phone: Eosinophils/100 WBC (Bld) 2 % Normal 0-5 [facility] Work Phone: Comment on above: PERFORMED BY: Global WeatherECU Health Edge[facility] [id number] Eosinophils/100 WBC Auto (Bld) 2 % Normal 0-5 [facility] Work Phone: Erythrocyte distribution width (RBC) [Ratio] 13.0 % Normal 12.3-15.4 [facility] Work Phone: Comment on above: PERFORMED BY: Global WeatherECU Health [facility] [id number] Erythrocyte distribution width Auto Ratio (RBC) 13.0 % Normal 12.3-15.4 [facility] Work Phone: Hematocrit (Bld) [Volume fraction] 43.4 % Normal 34.0-46.6 [facility] Work Phone: Comment on above: PERFORMED BY: Global WeatherECU [facility] [id number] Hematocrit Auto Volume Fraction (Bld) 43.4 % Normal 34.0-46.6 [facility] Work Phone: Hemoglobin mass conc (Bld) 14.4 g/dL Normal 11.1-15.9 [facility] Work Phone: Comment on above: PERFORMED BY: [employer]ashinating [facility] [id number] Immature granulocytes #/vol (Bld) 0.0 {x10E3/uL} Normal 0.0-0.1 [facility] Work Phone: Comment on above: PERFORMED BY: [employer] [facility] [id number] Immature granulocytes (Bld) [#/Vol] 0.0 10*3/uL Normal 0.0-0.1 [facility]; [facility] Work Phone: Comment on above: PERFORMED BY: Global WeatherEC[facility] [id number] Immature granulocytes/100 WBC (Bld) 0 % Normal 0-2 [facility] Work Phone: Comment on above: PERFORMED BY: Global WeatherEC[facility] [id number] Lymphocytes (Bld) [#/Vol] 1.5 {x10E3/uL} Normal 0.7-3.1 [facility] Work Phone: Comment on above: PERFORMED BY: TagentNovant Health [facility] [id number] Lymphocytes (Bld) [#/Vol] 1.5 10*3/uL Normal 0.7-3.1 [facility]; [facility] Work Phone: Comment on above: PERFORMED BY: Fashinating EldridgeBlue Frog GamingECU Health Edgecombe Hospital [id number] Lymphocytes Auto #/vol (Bld) 1.5 {x10E3/uL} Normal 0.7-3.1 [facility] Work Phone: Lymphocytes/100 WBC (Bld) 26 % Normal 14-46 [facility] Work Phone: Comment on above: PERFORMED BY: Global WeatherECU [facility] [id number] Lymphocytes/100 WBC Auto (Bld) 26 % Normal 14-46 [facility] Work Phone: MCH (RBC) [Entitic mass] 30.6 pg Normal 26.6-33.0 [facility] Work Phone: Comment on above: PERFORMED BY: Global WeatherECU Health Edge[facility] [id number] MCH Auto Entitic mass (RBC) 30.6 pg Normal 26.6-33.0 [facility] Work Phone: MCHC (RBC) [Mass/Vol] 33.2 g/dL Normal 31.5-35.7 [facility] prehensive Internal Medicine Work Phone: Comment on above: PERFORMED BY: TagentNovant Health [facility] [id number] MCHC Auto mass conc (RBC) 33.2 g/dL Normal 31.5-35.7 [facility] Work Phone: MCV (RBC) [Entitic vol] 92 fL Normal 79-97 [facility] Work Phone: Comment on above: PERFORMED BY: TagentNovant Health [facility] [id number] MCV Auto Entitic volume (RBC) 92 fL Normal 79-97 [facility] Internal Medicine Work Phone: Monocytes (Bld) [#/Vol] 0.5 {x10E3/uL} Normal 0.1-0.9 [facility] Work Phone: Comment on above: PERFORMED BY: TagentNovant Health [facility] [id number] Monocytes (Bld) [#/Vol] 0.5 10*3/uL Normal 0.1-0.9 [facility]; [facility] Work Phone: Comment on above: PERFORMED BY: TagentNovant Health [facility] [id number] Monocytes Auto #/vol (Bld) 0.5 {x10E3/uL} Normal 0.1-0.9 [facility] Work Phone: Monocytes/100 WBC (Bld) 8 % Normal 4-12 [facility] Work Phone: Comment on above: PERFORMED BY: Kuona70 [facility] MedicalEC[facility] [id number] Monocytes/100 WBC Auto (Bld) 8 % Normal 4-12 [facility] Work Phone: Neutrophils (Bld) [#/Vol] 3.7 {x10E3/uL} Normal 1.4-7.0 [facility] Work Phone: Comment on above: PERFORMED BY: Tagentriverview [facility] [place] [id number] Neutrophils (Bld) [#/Vol] 3.7 10*3/uL Normal 1.4-7.0 [facility]; [facility] Work Phone: Comment on above: PERFORMED BY: [employer]6370 [facility] [id number] Neutrophils Auto #/vol (Bld) 3.7 {x10E3/uL} Normal 1.4-7.0 [facility] Work Phone: Neutrophils/100 WBC (Bld) 64 % Normal 40-74 [facility] Work Phone: Comment on above: PERFORMED BY: Kuona70 [facility] MedicalEC[facility] [id number] Neutrophils/100 WBC Auto (Bld) 64 % Normal 40-74 [facility] Work Phone: Platelets (Bld) [#/Vol] 216 {x10E3/uL} Normal 155-379 [facility] Work Phone: Comment on above: PERFORMED BY: Kuona70 [facility] MedicalEC[facility] [id number] Platelets (Bld) [#/Vol] 216 10*3/uL Normal 155-379 [facility]; [facility] Work Phone: Comment on above: PERFORMED BY: Kuona70 [facility] [id number] Platelets Auto #/vol (Bld) 216 {x10E3/uL} Normal 155-379 [facility] Work Phone: RBC (Bld) [#/Vol] 4.70 {x10E6/uL} Normal 3.77-5.28 [facility] Internal Medicine Work Phone: Comment on above: PERFORMED BY: Kuona70 [facility] [id number] RBC (Bld) [#/Vol] 4.70 10*6/uL Normal 3.77-5.28 [facility] Internal Medicine; [facility] Work Phone: Comment on above: PERFORMED BY: [email or web address] KitLocatein [place] [id number] RBC Auto #/vol (Bld) 4.70 {x10E6/uL} Normal 3.77-5.28 [facility] Work Phone: WBC (Bld) [#/Vol] 5.9 {x10E3/uL} Normal 3.4-10.8 [facility] prehensive Internal Medicine Work Phone: Comment on above: PERFORMED BY: [email or web address] KitLocateNovant Health Kernersville [facility] [id number] WBC (Bld) [#/Vol] 5.9 10*3/uL Normal 3.4-10.8 Compre [facility] Internal Medicine; [facility] Work Phone: Comment on above: PERFORMED BY: TagentNovant Health [facility] [id number] WBC Auto #/vol (Bld) 5.9 {x10E3/uL} Normal 3.4-10.8 [facility] Work Phone: LIPID PANEL ([id number])Ordered B y: Manager Clinical Services on 01-27-2014 Cholesterol in HDL mass conc 38 mg/dL Abnormal [facility] Work Phone: Comment on above: According to ATP-III Guidelines, HDL-C >59 mg/dL is considered anegative risk factor for CHD. PERFORMED BY: Kuona70 KitLocateNovant Health [facility] [id number] Cholesterol in LDL mass conc 127 mg/dL Abnormal 0-99 [facility] Work Phone: Comment on above: PERFORMED BY: [email or web address] KitLocateNovant Health [facility] [id number] Cholesterol in LDL/Cholesterol in HDL mass ratio 3.3 {ratio_units} Abnormal 0.0-3.2 [facility] Work Phone: Comment on above: PERFORMED BY: Kuona70 KitLocateNovant Health [facility] [id number] Cholesterol in VLDL mass conc 40 mg/dL Normal 5-40 [facility] Work Phone: Comment on above: PERFORMED BY: [place] Ompbrj3940 [address] RoadDublin [place] [id number] Cholesterol mass conc 205 mg/dL Abnormal 100-199 Com prehensive Internal Medicine Work Phone: Comment on above: PERFORMED BY: Armasightlin6370 [address] RoadDublin [place] [id number] Triglyceride mass conc 200 mg/dL Abnormal 0-149 Co mprehensive Internal Medicine Work Phone: Comment on above: PERFORMED BY: [employer]6370 [address] RoadDublin [place] [id number] METABOLIC PANEL, COMPREHENSI VE ([id number])Ordered By: Manager Clinical Services on 01-27-2014 Albumin mass conc 4.1 g/dL Normal 3.5-5.5 Compreh ensive Internal Medicine Work Phone: Comment on above: PERFORMED BY: Kuona70 [address] RoadDublin [place] [id number] Albumin/Globulin mass ratio 1.4 {ratio} Normal 1.1-2.5 [facility] Work Phone: Comment on above: PERFORMED BY: [employer]com6370 [address] RoadDublin [place] [id number] ALP [Catalytic activity/Vol] 97 U/L Normal 39-117 [facility]; [facility] Work Phone: Comment on above: PERFORMED BY: [employer]com6370 [address] RoadDublin [place] [id number] ALP enzyme act/vol 97 [iU]/L Normal 39-117 [facility] Internal Medicine Work Phone: Comment on above: PERFORMED BY: Armasightlin6370 [address] RoadDublin [place] [id number] ALT [Catalytic activity/Vol] 11 U/L Normal 0-32 [facility]; [facility] Work Phone: Comment on above: PERFORMED BY: [email or web address] [address] RoadDublin [place] [id number] ALT enzyme act/vol 11 [iU]/L Normal 0-32 Compre hensive Internal Medicine Work Phone: Comment on above: PERFORMED BY: Accu[employer] Adelita Vbaaiq8250 Eldridge RoadReality Digitalblin [place] [id number] AST [Catalytic activity/Vol] 15 U/L Normal 0-40 [facility]; [facility] Work Phone: Comment on above: PERFORMED BY: [facility] Adelita Wmpush0047 [address]ridge RoadReality Digitalblin [place] [id number] AST enzyme act/vol 15 [iU]/L Normal 0-40 [facility] Internal Medicine Work Phone: Comment on above: PERFORMED BY: [facility] Sharegate6[address] RoadReality Digitalblin [place] [id number] Bilirubin mass conc 0.5 mg/dL Normal 0.0-1.2 [facility] Work Phone: Comment on above: PERFORMED BY: [email or web address].com[address] Crowdzuin [place] [id number] Calcium mass conc 9.2 mg/dL Normal 8.7-10.2 Compreh [facility] Work Phone: Comment on above: PERFORMED BY: [place] Gujsvy[address]dz[address] [place] [id number] Chloride molar conc 103 mmol/L Normal 97-108 [facility] Work Phone: Comment on above: PERFORMED BY: Armasightlin[address] [place] [id number] CO2 molar conc 28 mmol/L Normal 19-28 Comprehens nadya Internal Medicine Work Phone: Comment on above: PERFORMED BY: [place] Xlrpnk35[address] RoadReality Digitalin [place] [id number] Creatinine mass conc 0.56 mg/dL Abnormal 0.57-1.00 [facility] Work Phone: Comment on above: PERFORMED BY: [place] Bqrbki[address]dz[address] [place] [id number] GFR/1.73 sq M predicted among blacks CKD-EPI vol rate/area (S/P/Bld) 119 mL/min/1.73 Normal [facility] Work Phone: Comment on above: PERFORMED BY: [email or web address] KitLocateNov[facility] [id number] GFR/1.73 sq M predicted among non-blacks CKD-EPI vol rate/area (S/P/Bld) 103 mL/min/1.73 Normal Comprehensiv e Internal Medicine Work Phone: Comment on above: PERFORMED BY: [email or web address] KitLocateNov[facility] [id number] Globulin (S) [Mass/Vol] 3.0 g/dL Normal 1.5-4.5 [facility] Work Phone: Comment on above: PERFORMED BY: TagentNovant Health [facility] [id number] Globulin Calculated mass conc (S) 3.0 g/dL Normal 1.5-4.5 [facility] Work Phone: Glucose mass conc 108 mg/dL Abnormal 65-99 Compreh ensive Internal Medicine Work Phone: Comment on above: PERFORMED BY: [email or web address] KitLocateNov[facility] [id number] Potassium molar conc 3.9 mmol/L Normal 3.5-5.2 Comp rehensive Internal Medicine Work Phone: Comment on above: PERFORMED BY: [email or web address] KitLocateNov[facility] [id number] Protein mass conc 7.1 g/dL Normal 6.0-8.5 Compreh ensive Internal Medicine Work Phone: Comment on above: PERFORMED BY: [email or web address] KitLocateNov[facility] [id number] Sodium molar conc 142 mmol/L Normal 134-144 Compreh ensive Internal Medicine Work Phone: Comment on above: PERFORMED BY: TagentNov[facility] [id number] Urea nitrogen mass conc 16 mg/dL Normal 6-24 [facility] Work Phone: Comment on above: PERFORMED BY: Global WeatherReality Digitalblin [place] [id number] Urea nitrogen/Creatinine mass ratio 29 mg/mg Abnormal 9-23 [facility] Work Phone: Comment on above: PERFORMED BY: [facility] Adelita Ddpgzj4029 Eldridge RoadDublin [place] [id number] TSH ([id number])Ordered By: Syste m Supervisor Quality Control on 01-27-2014 Thyrotropin Qn 3.160 {uIU/mL} Normal 0.450-4.500 Compr ensive Internal Medicine Work Phone: Comment on above: PERFORMED BY: [facility] Adelita Jhzunf[address] [place] [id number] Vitamin D Hydroxy ([id number])Ord ered By: Manager Clinical Services on 01-27-2014 25-Hydroxyvitamin D2+25-Hydroxyvitamin D3 mass conc 9.6 ng/mL Abnormal 30.0-100.0 [facility] Work Phone: Comment on above: Vitamin D deficiency has been defined by the [place] of[place]icine and an Endocrine Society practice guideline as alevel of serum 25-OH vitamin D less than 20 ng/mL (1,2).The Endocrine Society went on to further define vitamin Dinsufficiency as a level between 21 and 29 ng/mL (2).1. IOM ([place] of Medicine). 2010. Dietary reference intakes for calcium and D. [place]: The National Academies Press.2. Jenna MF, Melissa NC, Faraz DOWD, et al. Evaluation, treatment, and prevention of vitamin D deficiency: an Endocrine Society clinical practice guideline. JCEM. 2010; 96(7):1911-30. PERFORMED BY: [facility] Adelita Jjdstj2361 Eldridge RoadDublin [place] [id number] TSH ([id number])Ordered By: Alec m Supervisor Quality Control on 02-01-2012 Thyrotropin Qn 4.030 {uIU/mL} Normal 0.450-4.500 Compr [facility] Internal Medicine Work Phone: Comment on above: PATIENT NOT FASTINGP ERFORMED BY: [facility] Zpkmvr8[address] RoadDublin [place] [id number] Information: [id number] CAOrdered By: Manager Clinical Services on 11-30-2009 Calcium mass conc 8.6 mg/dL Normal 8.5-10.1 Compreh ensive Internal Medicine Work Phone: CHEST, PA AND LATERAL (MT)Or dered By: Manager Clinical Services on 11-30-2009 CHEST, PA AND LATERAL (MT) See Note Normal [facility] Work Phone: Comment on above: Exam Number: [id number] 61 PA AND LATERAL VIEWS OF THE CHEST HISTORYA 54-year-old woman with cough since last Saturday with associatedcongestion. COMPARISONAugust 19, 2007. PA and lateral views of the chest. Moderately tortuous aorta. The lungs are clear. Pleural marginsare sharp. The osseous structures are normal. IMPRESSIONNo evidence of acute disease. No evidence of pneumonia. Reported By: VALERIO MOSS M.D. PTH,IntactOrdered By: Manager Clinical Services on 11-30-2009 PTH,Intact 77 pg/mL Abnormal 14-72 [facility] Work Phone: VIT D,25 [id number] By: Alert Logic stem Supervisor Quality Control on 11-23-2009 VIT D,25 02610 4.6 ng/mL Abnormal 32.0-100.0 Comprehens nadya Internal Medicine Work Phone: Comment on above: Recent studies consi jonna the lower limit of 32.0 ng/mL to kailee threshold for optimal health.Damian TOM. J Nutr. 2004;135(2):317-22.Performed At: [facility]63EPIC Research & DiagnosticsWest Hollywood, [place] [id number] YOLIS-D [id number] By: Syst em Supervisor Quality Control on 05-27-2008 Nuclear Ab Ql (S) 39 AU/mL Normal 0-99 Compreh ensive Internal Medicine Work Phone: Comment on above: Negative <100 Equivo ciara 100 - 120 Positive >120Performed At: [email or web address] Falls, [place] [id number] C-REACTIVE PROTOrdered By: Lynne ystem Supervisor Quality Control on 05-27-2008 CRP mass conc 2.91 mg/L Normal 0.0-6.0 Comprehensi ve Internal Medicine Work Phone: Comment on above: Test performed using the Dimension C-Reactive ProteinExtended Range assay method. This assay meets the AHA/CDC 2003 recommendations fordetermining patients at high risk for cardiovasculardisease. Reference: High risk CRP >3.0 mg/L CBCD,SMEAR DIFFOrdered By: Lynne tem Supervisor Quality Control on 05-27-2008 Eosinophils/100 WBC (Bld) 2 % Normal 0-5 [facility] Work Phone: Eosinophils/100 WBC Auto (Bld) 2 % Normal 0-5 [facility] Work Phone: Erythrocyte distribution width (RBC) [Ratio] 12.9 % Normal 11.6-14.6 [facility] Work Phone: Erythrocyte distribution width Auto Ratio (RBC) 12.9 % Normal 11.6-14.6 [facility] Work Phone: Hematocrit (Bld) [Volume fraction] 40.1 % Normal 37-47 [facility] Internal Medicine Work Phone: Hematocrit Auto Volume Fraction (Bld) 40.1 % Normal 37-47 [facility] Internal Medicine Work Phone: Hemoglobin mass conc (Bld) 14.1 g/dL Normal 12.0-16.0 [facility] Internal Medicine Work Phone: Lymphocytes/100 WBC (Bld) 25 % Normal 19-41 [facility] Work Phone: Lymphocytes/100 WBC Auto (Bld) 25 % Normal 19-41 [facility] Internal Medicine Work Phone: MCH (RBC) [Entitic mass] 31.9 pg Normal 27.0-32.0 [facility] Internal Medicine Work Phone: MCH Auto Entitic mass (RBC) 31.9 pg Normal 27.0-32.0 [facility] Internal Medicine Work Phone: MCHC (RBC) [Mass/Vol] 35.1 g/dL Normal 32-36 [facility] prehensive Internal Medicine Work Phone: MCHC Auto mass conc (RBC) 35.1 g/dL Normal 32-36 [facility] Internal Medicine Work Phone: MCV (RBC) [Entitic vol] 90.7 fL Normal 81-99 [facility] Work Phone: MCV Auto Entitic volume (RBC) 90.7 fL Normal 81-99 [facility] Work Phone: Monocytes/100 WBC (Bld) 5 % Normal 0-10 [facility] Work Phone: Monocytes/100 WBC Auto (Bld) 5 % Normal 0-10 [facility] Internal Medicine Work Phone: Platelets (Bld) [#/Vol] 228 10*3/uL Normal 150-450 [facility] Work Phone: Platelets (Bld) [#/Vol] SeeNote Normal [facility] Internal Medicine Work Phone: Comment on above: Result: ADEQUATE Platelets Auto #/vol (Bld) 228 10*3/uL Normal 150-450 [facility] Internal Medicine Work Phone: RBC (Bld) [#/Vol] 4.42 {M/mm3} Normal 4.2-5.4 Compr ensive Internal Medicine Work Phone: RBC Auto #/vol (Bld) 4.42 {M/mm3} Normal 4.2-5.4 Co [facility] Work Phone: WBC (Bld) [#/Vol] 8.2 10*3/uL Normal 4.4-11.0 [facility] Work Phone: WBC Auto #/vol (Bld) 8.2 10*3/uL Normal 4.4-11.0 [facility] prehensive Internal Medicine Work Phone: CBCD,SMEAR DIFF 68 % Normal 47-70 [facility] Work Phone: CBCD,SMEAR DIFF 100 1 Normal [facility] Work Phone: CBCD,SMEAR DIFF SeeNote Normal [facility] Internal Medicine Work Phone: Comment on above: Result: NORM C+C Result: ADEQUATE COMP METABOLICOrdered By: Sy stem Supervisor Quality Control on 05-27-2008 Albumin mass conc 3.7 g/dL Normal 3.4-5.0 Compreh ensive Internal Medicine Work Phone: Albumin/Globulin mass ratio 1.0 {RATIO} Normal 0.9-2.4 [facility] Internal Medicine Work Phone: ALP enzyme act/vol 113 U/L Normal 50-136 Compre [facility] Internal Medicine Work Phone: ALT enzyme act/vol 34 U/L Normal 30-65 Compre [facility] Internal Medicine Work Phone: Anion gap 3 molar conc 4 mmol/L Abnormal 5-15 Co mprehensive Internal Medicine Work Phone: Anion gap [Moles/Vol] 4 mmol/L Abnormal 5-15 Com prehensive Internal Medicine Work Phone: AST enzyme act/vol 17 U/L Normal 15-37 Compre [facility] Internal Medicine Work Phone: Bilirubin mass conc 0.43 mg/dL Normal 0.00-1.00 Compr ensive Internal Medicine Work Phone: Calcium mass conc 8.7 mg/dL Normal 8.5-10.1 Compreh [facility] Work Phone: Chloride molar conc 103 mmol/L Normal 98-107 Compr [facility] Internal Medicine Work Phone: CO2 molar conc 30.9 mmol/L Normal 21.0-32.0 Comprehen [facility] Internal Medicine Work Phone: Creatinine mass conc 0.7 mg/dL Normal 0.6-1.0 [facility] Work Phone: Globulin (S) [Mass/Vol] 3.8 g/dL Normal 2.7-4.2 [facility] Internal Medicine Work Phone: Globulin Calculated mass conc (S) 3.8 g/dL Normal 2.7-4.2 [facility] Internal Medicine Work Phone: Glucose mass conc 90 mg/dL Normal 70-110 Compreh [facility] Work Phone: Potassium molar conc 3.4 mmol/L Abnormal 3.5-5.1 Comp [facility] Work Phone: Protein mass conc 7.5 g/dL Normal 6.4-8.2 Compreh ensive Internal Medicine Work Phone: Sodium molar conc 138 mmol/L Normal 136-145 Compreh ensive Internal Medicine Work Phone: Urea nitrogen mass conc 13 mg/dL Normal 7-18 [facility] Work Phone: Urea nitrogen/Creatinine mass ratio 18.6 {RATIO} Normal 10-20 [facility] Work Phone: ESROrdered By: System Manage r on 05-27-2008 ESR Velocity (Bld) 1 mm/h Normal 0-30 Compre hensive Internal Medicine Work Phone: Thin prep Pap ([id number])Ordered By: Madelin Alberto on 12-31-2007 Thin prep Pap ([id number]) SPRCS Normal Com prehensive Internal Medicine Work Phone: Comment on above: NEGATIVE FOR INTRAEP ITHELIAL LESION AND MALIGNANCY.THIS SPECIMEN WAS RESCREENED PART OF OUR LAN ANALYST PROGRAM.Satisfactory for evaluation. Endocervical and/or squamous metaplasticcells (endocervical component) are present.V72.31 ; Routine gynecological examinationChleonidas Curry, Customer Response Representative (ASCP)Sunshine Green, Supervisory Customer Response Representative (ASCP) Source.............C ervical;EndocervicalLMP / Prev Treat...VFM=[id number]. of containers..01 CYTYC Thin Prep VialPATIENT NOT FASTINGClinical Information: ADD [id number] PERFORMED BY: Frankly [address] [id number] Thin prep Pap ([id number]) . Normal Com prehensive Internal Medicine Work Phone: Comment on above: Source.............C ervical;EndocervicalLMP / Prev Treat...TQR=[id number]. of containers..01 CYTYC Thin Prep VialPATIENT NOT FASTINGClinical Information: ADD [id number] PERFORMED BY: Frankly [address] [id number] Thin prep Pap ([id number]) PAPSMR Normal [facility] prehensive Internal Medicine Work Phone: Comment on above: The Pap smear is a s creening test designed to aid in the detection ofpremalignant and malignant conditions of the uterine cervix. It is not adiagnostic procedure and should not be used as the sole means of detectingcervical cancer. Both false-positive and false-negative reports do occur. .The HPV DNA reflex criteria were not met with this specimen resulttherefore, no HPV testing was performed. . Source.............C ervical;EndocervicalLMP / Prev Treat...EBY=[id number]. of containers..01 CYTYC Thin Prep VialPATIENT NOT FASTINGClinical Information: ADD [id number] PERFORMED BY: [facility] [id number] LIPIDOrdered By: Mahogany spivey on 12-17-2007 Cholesterol in HDL mass conc 42 mg/dL Normal [facility] Work Phone: Comment on above: Reference Range HDL <40 mg/dL Low HDL Cholesterol HDL >or= 60 mg/dL High HDL Cholesterol Cholesterol in LDL mass conc 149 mg/dL Abnormal 0-130 [facility] Work Phone: Cholesterol in VLDL mass conc 60 mg/dL Abnormal 5-40 [facility] Internal Medicine Work Phone: Cholesterol mass conc 251 mg/dL Abnormal [facility] prehensive Internal Medicine Work Phone: Comment on above: <200 mg/dL Desirable 200-240 mg/dL Borderline >240 mg/dL High Risk Triglyceride mass conc 302 mg/dL Abnormal [facility] Work Phone: Comment on above: Serum Triglycerides Reference Interval Normal <150 mg/dL Borderline high 150 - 199 mg/dL High 200 - 499 mg/dL Very High > or = 500 mg/dL LIVEROrdered By: Mahogany spivey on 12-17-2007 Albumin mass conc 4.2 g/dL Normal 3.4-5.0 Compreh ensive Internal Medicine Work Phone: ALP enzyme act/vol 130 U/L Normal 50-136 [facility]pre [facility] Work Phone: ALT enzyme act/vol 36 [iU]/L Normal 30-65 Compre [facility] Internal Medicine Work Phone: AST enzyme act/vol 19 U/L Normal 15-37 Compre [facility] Internal Medicine Work Phone: Bilirubin mass conc 0.48 mg/dL Normal 0.00-1.00 [facility] ehensive Internal Medicine Work Phone: Bilirubin.direct mass conc 0.15 mg/dL Normal 0.00-0.30 [facility] Work Phone: Protein mass conc 7.7 g/dL Normal 6.4-8.2 Compreh ensive Internal Medicine Work Phone: TSHOrdered By: System Manage r on 12-17-2007 Thyrotropin Qn 2.48 {uIU/mL} Normal 0.34-4.82 Compreh [facility] Internal Medicine Work Phone: CHEST, PA AND LATERALOrdered By: Manager Clinical Services on 08-19-2007 CHEST, PA AND LATERAL See Note Normal Com prehensive Internal Medicine Work Phone: Comment on above: Exam Number: [id number] 84 PA AND LATERAL CHEST HISTORY Being done for difficulty breathing, abnormal breath sounds onphysical examination. Cardiac configuration is normal. There is an inflammatoryconsolidation in the right lower lung. I cannot exclude some type ofmass in the right hilar region. A followup PA and lateral filmsand/or CT scan is suggested after medical treatment. I do notappreciate an effusion or pneumothorax. Left lung is clear. IMPRESSIONInflammatory consolidation right lower lung, see above. Reported By: MARIO ALBERTO KIMBALL M.D. Negative test res ults should be confirmed by culture. Order Rapid Viral Culture for Influenzae A+B ([id number]) if clinically indicated.RESULTS CALLED TO DR ALBERTO(KIKI) 08/19/07 [id number] PRESTONREPORT READ BACK BY SAME. INFLUENZA ANTIGEN,DIRECT Presumptive NEGATIVE for Influenza A/B Antigen (See Note) CALL RESULTS Rapid Strep Test, Office ([phone])on 08-19-2007 S. pyogenes Ag EIA Ql (Throat) Negative Normal [facility]; [facility] Work Phone: Comment on above: done kmnegative Rapid Strep Test, Office ([id number] [phone])Ordered By: Marija Lyn on 08-19-2007 S. pyogenes Ag IA Ql (Unsp spec) Negative Normal [facility] Work Phone: Comment on above: done kmnegative Upper Respiratory CultureOrd ered By: Manager Clinical Services on 08-19-2007 Bacteria identified Respiratory culture Nom (Unsp spec) RRF Normal [facility] Work Phone: Comment on above: Routine respiratory vanessa Clinical Information : SRC: ADD [id number] PERFORMED BY: [facility]Nov[facility] [id number] Bacteria identified Respiratory culture Nom (Unsp spec) Final report Normal [facility] Work Phone: Comment on above: Clinical Information : SRC: ADD [id number] PERFORMED BY: [facility]Nov[facility] [id number] Vital Signs Date Time Vital Sign Value Performing Clinician Facility 06-14-2025 11:24-0400 Body height 165.[address] Madelin Alberto DO Work Phone: [facility] 06-14-2025 11:24-0400 Body mass index (BMI) [Ratio] 28.8 kg/m2 Dr. Madelin Alberto DO Work Phone: [facility] 06-14-2025 11:24-0400 Body weight 78.[address] Madelin Alberto DO Work Phone: [facility] 06-14-2025 11:24-0400 Diastolic blood pressure 87 mm[Hg] Dr. Madelin Alberto DO Work Phone: [facility] 06-14-2025 11:24-0400 Heart rate 79 /min Dr. Madelin Alberto DO Work Phone: [facility] 06-14-2025 11:24-0400 SaO2% (BldA) [Mass fraction] 93 % Dr. Madelin Alberto DO Work Phone: [facility] 06-14-2025 11:24-0400 Systolic blood pressure 143 mm[Hg] Dr. Madelin Alberto DO Work Phone: [facility] 02-11-2025 10:41-0400 Diastolic blood pressure 81 mm[Hg] Dr. Madelin Alberto DO Work Phone: [facility] 02-11-2025 10:41-0400 Heart rate 79 /min Dr. Madelin Alberto DO Work Phone: [facility] 02-11-2025 10:41-0400 Systolic blood pressure 150 mm[Hg] Dr. Madelin Alberto DO Work Phone: [facility] 02-11-2025 09:47-0400 Body height 165.[address] Madelin Alberto DO Work Phone: [facility] 02-11-2025 09:47-0400 Body mass index (BMI) [Ratio] 29.7 kg/m2 Dr. Maedlin Alberto DO Work Phone: [facility] 02-11-2025 09:47-0400 Body temperature 97 [degF] Dr. Madelin Alberto DO Work Phone: [facility] 02-11-2025 09:47-0400 Body weight 81.[address] Madelin Alberto DO Work Phone: [facility] 02-11-2025 09:47-0400 Respiratory rate 16 /min Dr. Madelin Alberto DO Work Phone: [facility] 02-11-2025 09:47-0400 SaO2% (BldA) [Mass fraction] 95 % Dr. Madelin Alberto DO Work Phone: [facility] 02-08-2025 09:49-0400 Body mass index (BMI) [Ratio] 29.9 kg/m2 Dr. Madelin Alberto DO Work Phone: [facility] 02-08-2025 09:49-0400 Body weight 81.[address] Madelin Alberto DO Work Phone: [facility] 02-08-2025 09:49-0400 Diastolic blood pressure 83 mm[Hg] Dr. Madelin Alberto DO Work Phone: [facility] 02-08-2025 09:49-0400 Heart rate 81 /min Dr. Madelin Alberto DO Work Phone: [facility] 02-08-2025 09:49-0400 SaO2% (BldA) [Mass fraction] 93 % Dr. Madelin Alberto DO Work Phone: [facility] 02-08-2025 09:49-0400 Systolic blood pressure 155 mm[Hg] Dr. Madelin Alberto DO Work Phone: [facility] 11-09-2024 09:35-0500 Body height 165.[address] Madelin Alberto DO Work Phone: [facility] 11-09-2024 09:35-0500 Body mass index (BMI) [Ratio] 30.1 kg/m2 Dr. Madelin Alberto DO Work Phone: [facility] 11-09-2024 09:35-0500 Body weight 82.[address] Madelin Alberto DO Work Phone: [facility] 11-09-2024 09:35-0500 Diastolic blood pressure 89 mm[Hg] Dr. Madelin Alberto DO Work Phone: [facility] 11-09-2024 09:35-0500 Heart rate 73 /min Dr. Madelin Alberto DO Work Phone: [facility] 11-09-2024 09:35-0500 SaO2% (BldA) [Mass fraction] 95 % Dr. Madelin Alberto DO Work Phone: [facility] 11-09-2024 09:35-0500 Systolic blood pressure 169 mm[Hg] Dr. Madelin Alberto DO Work Phone: [facility] 11-28-2023 14:59-0500 Body temperature 98.9 [degF] Dr. Madelin Alberto Work Phone: [facility] 11-28-2023 14:59-0500 Diastolic blood pressure 81 mm[Hg] Dr. Madelin Alberto Work Phone: [facility] 11-28-2023 14:59-0500 Heart rate 76 /min Dr. Madelin Alberto Work Phone: [facility] 11-28-2023 14:59-0500 Respiratory rate 16 /min Dr. Madelin Alberto Work Phone: [facility] 11-28-2023 14:59-0500 SaO2% (BldA) [Mass fraction] 97 % Dr. Madelin Alberto Work Phone: [facility] 11-28-2023 14:59-0500 Systolic blood pressure 157 mm[Hg] Dr. Madelin Alberto Work Phone: [facility] 11-28-2023 14:26-0500 Body height 165.[address] Madelin Alberto Work Phone: [facility] 11-28-2023 14:26-0500 Body mass index (BMI) [Ratio] 30.6 kg/m2 Dr. Madelin Alberto Work Phone: [facility] 11-28-2023 14:26-0500 Body weight 83.[address] Madelin Alberto Work Phone: [facility] 11-14-2023 13:37-0500 Body mass index (BMI) [Ratio] 30.1 kg/m2 Dr. Madelin Alberto Work Phone: [facility] 11-14-2023 13:37-0500 Body temperature 98.7 [degF] Dr. Madelin Alberto Work Phone: [facility] 11-14-2023 13:37-0500 Body weight 82.[address] Madelin Alberto Work Phone: [facility] 11-14-2023 13:37-0500 Diastolic blood pressure 86 mm[Hg] Dr. Madelin Alberto Work Phone: [facility] 11-14-2023 13:37-0500 Heart rate 84 /min Dr. Madelin Alberto Work Phone: [facility] 11-14-2023 13:37-0500 Respiratory rate 18 /min Dr. Madelin Alberto Work Phone: [facility] 11-14-2023 13:37-0500 SaO2% (BldA) [Mass fraction] 97 % Dr. Madelin Alberto Work Phone: [facility] 11-14-2023 13:37-0500 Systolic blood pressure 161 mm[Hg] Dr. Madelin Alberto Work Phone: [facility] 08-08-2023 13:13-0500 Body height 165.[address] Madelin Alberto Work Phone: [facility] 08-08-2023 13:13-0500 Body mass index (BMI) [Ratio] 31.6 kg/m2 Dr. Madelin Alberto Work Phone: [facility] 08-08-2023 13:13-0500 Body temperature 98 [degF] Dr. Madelin Alberto Work Phone: [facility] 08-08-2023 13:13-0500 Body weight 86.[address] Madelin Alberto Work Phone: [facility] 08-08-2023 13:13-0500 Diastolic blood pressure 76 mm[Hg] Dr. Madelin Alberto Work Phone: [facility] 08-08-2023 13:13-0500 Heart rate 80 /min Dr. Madelin Alberto Work Phone: [facility] 08-08-2023 13:13-0500 Respiratory rate 16 /min Dr. Madelin Alberto Work Phone: [facility] [facility] 08-08-2023 13:13-0500 SaO2% (BldA) [Mass fraction] 97 % Dr. Madelin Alberto Work Phone: [facility] 08-08-2023 13:13-0500 Systolic blood pressure 170 mm[Hg] Dr. Madelin Alberto Work Phone: [facility] 04-10-2023 14:41-0400 Body height 165.1 cm Sarah [facility]; [facility] Work Phone: 04-10-2023 14:41-0400 Body mass index (BMI) [Ratio] 30.7 kg/m2 Sarah [facility]; [facility] Work Phone: 04-10-2023 14:41-0400 Body surface area Derived from formula 1.91 m2 Sarah [facility]; [facility] Work Phone: 04-10-2023 14:41-0400 Body temperature 98.1 [degF] [facility]; [facility] Work Phone: 04-10-2023 14:41-0400 Body weight 83.69 kg [facility]; [facility] Work Phone: 04-10-2023 14:41-0400 Diastolic blood pressure 78 mm[Hg] [facility]; [facility] Work Phone: 04-10-2023 14:41-0400 Heart rate 72 /min [facility]; [facility] Work Phone: 04-10-2023 14:41-0400 Respiratory rate 16 /min Sarah [facility]; [facility] Work Phone: 04-10-2023 14:41-0400 SaO2% (BldA) [Mass fraction] 95 % Sarah [facility]; [facility] Work Phone: 04-10-2023 14:41-0400 Systolic blood pressure 120 mm[Hg] Sarah Sanchez [facility]; [facility] Work Phone: 04-03-2023 12:01-0400 Body height 165.1 cm Bianca Brewster MA [facility]; [facility] Work Phone: 04-03-2023 12:01-0400 Body mass index (BMI) [Ratio] 30.37 kg/m2 Bianca Brewster MA [facility]; [facility] Work Phone: 04-03-2023 12:01-0400 Body surface area Derived from formula 1.9 m2 Bianca Brewster MA [facility]; [facility] Work Phone: 04-03-2023 12:01-0400 Body weight 82.78 kg Bianca Brewster MA [facility]; [facility] Work Phone: 04-03-2023 12:01-0400 SaO2% (BldA) [Mass fraction] 98 % Bianca Brewster MA [facility]; [facility] Work Phone: 03-18-2023 13:50-0400 Body height 165.[address] Madelin Alberto Work Phone: [facility] 03-18-2023 13:50-0400 Body mass index (BMI) [Ratio] 30.4 kg/m2 Dr. Madelin Alberto Work Phone: [facility] 03-18-2023 13:50-0400 Body temperature 98.2 [degF] Dr. Madelin Alberto Work Phone: [facility] 03-18-2023 13:50-0400 Body weight 83.[address] Madelin Alberto Work Phone: [facility] 03-18-2023 13:50-0400 Diastolic blood pressure 80 mm[Hg] Dr. Madelin Alberto Work Phone: [facility] 03-18-2023 13:50-0400 Heart rate 76 /min Dr. Madelin Alberto Work Phone: [facility] 03-18-2023 13:50-0400 Respiratory rate 16 /min Dr. Madelin Alberto Work Phone: [facility] 03-18-2023 13:50-0400 SaO2% (BldA) [Mass fraction] 92 % Dr. Madelin Alberto Work Phone: [facility] 03-18-2023 13:50-0400 Systolic blood pressure 170 mm[Hg] Dr. Madelin Alberto Work Phone: [facility] 03-13-2023 11:27-0400 Body height 165.[address] [facility]; [facility] Work Phone: 03-13-2023 11:27-0400 Body mass index (BMI) [Ratio] 30.37 kg/m2 [facility]; [facility] Work Phone: 03-13-2023 11:27-0400 Body surface area Derived from formula 1.[address] [facility]; [facility] Work Phone: 03-13-2023 11:27-0400 Body temperature 96 [degF] [facility]; [facility] Work Phone: 03-13-2023 11:27-0400 Body weight 82.[address] [facility]; [facility] Work Phone: 03-13-2023 11:27-0400 Diastolic blood pressure 80 mm[Hg] [facility]; [facility] Work Phone: 03-13-2023 11:27-0400 Heart rate 74 /min [facility]; [facility] Work Phone: 03-13-2023 11:27-0400 Respiratory rate 18 /min [facility]; [facility] Work Phone: 03-13-2023 11:27-0400 SaO2% (BldA) [Mass fraction] 94 % [facility]; [facility] Work Phone: 03-13-2023 11:27-0400 Systolic blood pressure 130 mm[Hg] [facility]; [facility] Work Phone: 02-26-2023 13:44-0400 Inhaled oxygen flow rate 2 L/min Dr. Madelin Alberto Work Phone: [facility] 02-26-2023 13:43-0400 Body temperature 98.1 [degF] Dr. Madelin Alberto Work Phone: [facility] 02-26-2023 13:43-0400 Diastolic blood pressure 75 mm[Hg] Dr. Madelin Alberto Work Phone: [facility] 02-26-2023 13:43-0400 Heart rate 87 /min Dr. Madelin Alberto Work Phone: [facility] 02-26-2023 13:43-0400 Respiratory rate 18 /min Dr. Madelin Alberto Work Phone: [facility] 02-26-2023 13:43-0400 SaO2% (BldA) [Mass fraction] 93 % Dr. Madelin Alberto Work Phone: [facility] 02-26-2023 13:43-0400 Systolic blood pressure 150 mm[Hg] Dr. Madelin Alberto Work Phone: [facility] 02-23-2023 12:58-0400 Body height 165.[address] Madelin Alberto Work Phone: [facility] 02-23-2023 12:58-0400 Body mass index (BMI) [Ratio] 30.7 kg/m2 Dr. Madelin Alberto Work Phone: [facility] 02-23-2023 12:58-0400 Body weight 83.[address] Madelin Alberto Work Phone: [facility] 01-23-2023 16:06-0400 Body height 165.1 cm [facility]; [facility] Work Phone: 01-23-2023 16:06-0400 Body mass index (BMI) [Ratio] 31.12 kg/m2 [facility]; [facility] Work Phone: 01-23-2023 16:06-0400 Body surface area Derived from formula 1.92 m2 [facility]; [facility] Work Phone: 01-23-2023 16:06-0400 Body temperature 97.9 [degF] [facility]; [facility] Work Phone: 01-23-2023 16:06-0400 Body weight 84.82 kg [facility]; [facility] Work Phone: 01-23-2023 16:06-0400 Diastolic blood pressure 80 mm[Hg] [facility]; [facility] Work Phone: 01-23-2023 16:06-0400 Heart rate 76 /min [facility]; [facility] Work Phone: 01-23-2023 16:06-0400 Respiratory rate 18 /min [facility]; [facility] Work Phone: 01-23-2023 16:06-0400 SaO2% (BldA) [Mass fraction] 94 % [facility]; [facility] Work Phone: 01-23-2023 16:06-0400 Systolic blood pressure 130 mm[Hg] [facility]; [facility] Work Phone: 07-25-2022 15:28-0400 Body height 165.1 cm Tracy Kapadia [facility]; [facility] Work Phone: 07-25-2022 15:28-0400 Body mass index (BMI) [Ratio] 30.45 kg/m2 Tracy Kapadia [facility]; [facility] Work Phone: 07-25-2022 15:28-0400 Body surface area Derived from formula 1.9 m2 Tracy Kapadia [facility]; [facility] Work Phone: 07-25-2022 15:28-040 Body temperature 97.3 [degF] Tracy Kapadia [facility]; [facility] Work Phone: 07-25-2022 15:28-040 Body weight 83.01 kg Tracy Kapadia FOOD QUALITY TECHNICIAN [facility]; [facility] Work Phone: 07-25-2022 15:28-040 Diastolic blood pressure 68 mm[Hg] Tracy Kapadia [facility]; [facility] Work Phone: 07-25-2022 15:28-0400 Heart rate 82 /min Tracy Kapadia [facility]; [facility] Work Phone: 07-25-2022 15:28-0400 Respiratory rate 16 /min Tracy Kapadia [facility]; [facility] Work Phone: 07-25-2022 15:28-0400 SaO2% (BldA) [Mass fraction] 93 % Tracy Kapadia [facility]; [facility] Work Phone: 07-25-2022 15:28-0400 Systolic blood pressure 108 mm[Hg] Tracy Kapadia [facility]; [facility] Work Phone: 04-26-2022 14:23-0400 Body height 165.[address] Madelin Alberto Work Phone: [facility] Work Phone: 04-26-2022 14:23-0400 Body mass index (BMI) [Ratio] 30.6 kg/m2 Dr. Madelin Alberto Work Phone: [facility] Work Phone: 04-26-2022 14:23-0400 Body temperature 97.3 [degF] Dr. Madelin Alberto Work Phone: [facility] Work Phone: 04-26-2022 14:23-0400 Body weight 83.[address] Madelin Alberto Work Phone: [facility] Work Phone: 04-26-2022 14:23-0400 Diastolic blood pressure 80 mm[Hg] Dr. Madelin Alberto Work Phone: [facility] Work Phone: 04-26-2022 14:23-0400 Heart rate 97 /min Dr. Madelin Alberto Work Phone: [facility] Work Phone: 04-26-2022 14:23-0400 Respiratory rate 16 /min Dr. Madelin Alberto Work Phone: [facility] Work Phone: 04-26-2022 14:23-0400 SaO2% (BldA) [Mass fraction] 93 % Dr. Madelin Alberto Work Phone: [facility] Work Phone: 04-26-2022 14:23-0400 Systolic blood pressure 150 mm[Hg] Dr. Madelin Alberto Work Phone: [facility] Work Phone: 02-22-2022 14:21-0400 Body mass index (BMI) [Ratio] 30.1 kg/m2 Dr. Madelin Alberto Work Phone: [facility] Work Phone: 02-22-2022 14:21-0400 Body temperature 96.3 [degF] Dr. Madelin Alberto Work Phone: [facility] Work Phone: 02-22-2022 14:21-0400 Body weight 82.[address] Madelin Alberto Work Phone: [facility] Work Phone: 02-22-2022 14:21-0400 Diastolic blood pressure 96 mm[Hg] Dr. Madelin Alberto Work Phone: [facility] Work Phone: 02-22-2022 14:21-0400 Heart rate 83 /min Dr. Madelin Alberto Work Phone: [facility] Work Phone: 02-22-2022 14:21-0400 Respiratory rate 18 /min Dr. Madelin Alberto Work Phone: [facility] Work Phone: 02-22-2022 14:21-0400 SaO2% (BldA) [Mass fraction] 92 % Dr. Madelin Alberto Work Phone: [facility] Work Phone: 02-22-2022 14:21-0400 Systolic blood pressure 150 mm[Hg] Dr. Madelin Alberto Work Phone: [facility] Work Phone: 01-08-2022 11:40-0400 Body height 165.1 cm Tracy Deniseyissel [facility]; [facility] Work Phone: 01-08-2022 11:40-0400 Body mass index (BMI) [Ratio] 30.45 kg/m2 [facility]; [facility] Work Phone: 01-08-2022 11:40-0400 Body surface area Derived from formula 1.9 m2 Tracy Walkeryissel [facility]; [facility] Work Phone: 01-08-2022 11:40-0400 Body temperature 97.3 [degF] Tracy [facility]; [facility] Work Phone: 01-08-2022 11:40-0400 Body weight 83.01 kg Tracy Kapadia [facility]; [facility] Work Phone: 01-08-2022 11:40-0400 Diastolic blood pressure 70 mm[Hg] Tracy Kapadia FOOD QUALITY TECHNICIAN [facility]; [facility] Work Phone: 01-08-2022 11:40-0400 Heart rate 90 /min Tracy Kapadia [facility]; [facility] Work Phone: 01-08-2022 11:40-0400 Respiratory rate 18 /min Tracy Kapadia [facility]; [facility] Work Phone: 01-08-2022 11:40-0400 SaO2% (BldA) [Mass fraction] 94 % Tracy Kapadia [facility]; [facility] Work Phone: 01-08-2022 11:40-0400 Systolic blood pressure 118 mm[Hg] Tracy Kapadia [facility]; [facility] Work Phone: 05-12-2021 10:46-0400 Body height 165.1 cm Tracy Kapadia [facility]; [facility] Work Phone: Comment on above: no vs taken as this is phone encounter d ue to covid 05-12-2021 10:46-0400 Body mass index (BMI) [Ratio] 29.12 kg/m2 Tracy Kapadia [facility]; [facility] Work Phone: Comment on above: no vs taken as this is phone encounter d ue to covid 05-12-2021 10:46-0400 Body surface area Derived from formula 1.87 m2 Tracy Kapadia [facility]; [facility] Work Phone: Comment on above: no vs taken as this is phone encounter d ue to covid 05-12-2021 10:46-0400 Body temperature 97.3 [degF] Tracy Kapadia [facility]; [facility] Work Phone: Comment on above: Method: Infrared no vs taken as this is phone encounter due to covid 05-12-2021 10:46-0400 Body weight 79.38 kg Tracy Kapadia [facility]; [facility] Work Phone: Comment on above: no vs taken as this is phone encounter d ue to covid 05-12-2021 10:46-0400 Diastolic blood pressure 84 mm[Hg] Tracy Kapadia [facility]; [facility] Work Phone: Comment on above: Patient Position: Sitting; Cuff Location : Left Arm; Cuff Size: Standard no vs taken as this is phone encounter due to covid 05-12-2021 10:46-0400 Heart rate 74 /min Tracy Kapadia [facility]; [facility] Work Phone: Comment on above: Pattern: Regular no vs taken as this is phone encounter due to covid 05-12-2021 10:46-0400 Respiratory rate 20 /min Tracy Kapadia [facility]; [facility] Work Phone: Comment on above: Pattern: Unlabored no vs taken as this is phone encounter due to covid 05-12-2021 10:46-0400 SaO2% (BldA) [Mass fraction] 94 % Tracy Kapadia [facility]; [facility] Work Phone: Comment on above: Room air no vs taken as this is phone encounter due to covid 05-12-2021 10:46-0400 Systolic blood pressure 142 mm[Hg] Tracy Kapadia [facility]; [facility] Work Phone: Comment on above: Patient Position: Sitting; Cuff Location : Left Arm; Cuff Size: Standard no vs taken as this is phone encounter due to covid 03-20-2021 08:50-0400 Body height 165.1 cm Krissyshaun Ambrosio [facility]; [facility] Work Phone: 03-20-2021 08:50-0400 Body mass index (BMI) [Ratio] 28.79 kg/m2 Krissy Hebert [facility]; [facility] Work Phone: 03-20-2021 08:50-0400 Body surface area Derived from formula 1.86 m2 Krissy Slarb ATTENUATOR [facility]; [facility] Work Phone: 03-20-2021 08:50-0400 Body temperature 97.1 [degF] Krissy Slarb ATTENUATOR [facility]; [facility] Work Phone: 03-20-2021 08:50-0400 Body weight 78.47 kg Krissy Manavrb ATTENUATOR [facility]; [facility] Work Phone: 03-20-2021 08:50-0400 Diastolic blood pressure 80 mm[Hg] Krissy Slarb ATTENUATOR [facility]; [facility] Work Phone: Comment on above: Patient Position: Sitting; Cuff Location : Left Arm; Cuff Size: Standard 03-20-2021 08:50-0400 Heart rate 87 /min Krissy Slarb ATTENUATOR [facility]; [facility] Work Phone: Comment on above: Pattern: Regular 03-20-2021 08:50-0400 Respiratory rate 17 /min Krissy Slarb ATTENUATOR [facility]; [facility] Work Phone: Comment on above: Pattern: Unlabored 03-20-2021 08:50-0400 SaO2% (BldA) [Mass fraction] 93 % Krissy Slarb ATTENUATOR [facility]; [facility] Work Phone: Comment on above: Room air 03-20-2021 08:50-0400 Systolic blood pressure 132 mm[Hg] Krissy Slarb ATTENUATOR [facility]; [facility] Work Phone: Comment on above: Patient Position: Sitting; Cuff Location : Left Arm; Cuff Size: Standard 08-24-2020 08:15-0500 BMI (Body Mass Index) 28.35 kg/m2 Elvia Sylvester LPN [facility] Internal Medicine Work Phone: 08-24-2020 08:15-0500 Body weight 77.28 kg Elvia Higinio PERKINS [facility] Work Phone: 08-24-2020 08:15-0500 BSA (Body Surface Area) 1.85 m2 [facility] Internal Medicine Work Phone: 08-24-2020 08:15-0500 Height 165.1 cm [facility] Work Phone: 04-28-2020 10:30-0400 BMI (Body Mass Index) 28.35 kg/m2 Tracy Kapadia [facility] Internal Medicine Work Phone: 04-28-2020 10:30-0400 Body Temperature 96.8 [degF] Tracy Kapadia [facility] Work Phone: Comment on above: Method: Temporal 04-28-2020 10:30-0400 Body weight 77.28 kg Tracy Kapadia [facility] Work Phone: 04-28-2020 10:30-0400 BP Diastolic 88 mm[Hg] Tracy Kapadia [facility] Work Phone: Comment on above: Patient Position: Sitting; Cuff Location : Left Arm; Cuff Size: Standard 04-28-2020 10:30-0400 BP Systolic 122 mm[Hg] Tracy Kapadia [facility] Work Phone: Comment on above: Patient Position: Sitting; Cuff Location : Left Arm; Cuff Size: Standard 04-28-2020 10:30-0400 BSA (Body Surface Area) 1.85 m2 Tracy Kapadia [facility] Medicine Work Phone: 04-28-2020 10:30-0400 Height 165.1 cm Tracy Kapadia [facility] Work Phone: 04-28-2020 10:30-0400 Pulse (Heart Rate) 73 /min Tracy Kapadia [facility] Work Phone: Comment on above: Pattern: Regular 04-28-2020 10:30-0400 Pulse Oximetry 93 % Madelin Alberto [facility] Internal Medicine Work Phone: Comment on above: Room air 04-28-2020 10:30-0400 Respiratory Rate 16 /min Tracy Kapadia [facility] Medicine Work Phone: Comment on above: Pattern: Unlabored 04-28-2020 10:30-0400 SaO2% (BldA) [Mass fraction] 93 % Tracy Kapadia [facility]; [facility] Work Phone: Comment on above: Room air 02-12-2020 12:59-0400 BMI (Body Mass Index) 28.35 kg/m2 Tracy Kapadia [facility] Medicine Work Phone: 02-12-2020 12:59-0400 Body Temperature 97.2 [degF] Tracy Kapadia [facility] Internal Medicine Work Phone: Comment on above: Method: Temporal 02-12-2020 12:59-0400 Body weight 77.28 kg Tracy Kapadia [facility] Internal Medicine Work Phone: 02-12-2020 12:59-0400 BP Diastolic 73 mm[Hg] Tracy Kapadia [facility] Work Phone: Comment on above: Patient Position: Sitting; Cuff Location : Left Arm; Cuff Size: Standard 02-12-2020 12:59-0400 BP Systolic 118 mm[Hg] Tracy Kapadia [facility] Medicine Work Phone: Comment on above: Patient Position: Sitting; Cuff Location : Left Arm; Cuff Size: Standard 02-12-2020 12:59-0400 BSA (Body Surface Area) 1.85 m2 Tracy Kapadia [facility] Internal Medicine Work Phone: 02-12-2020 12:59-0400 Height 165.1 cm Tracy Kapadia [facility] Medicine Work Phone: 02-12-2020 12:59-0400 Pulse (Heart Rate) 82 /min Tracy Kapadia [facility] Work Phone: Comment on above: Pattern: Regular 02-12-2020 12:59-0400 Pulse Oximetry 97 % Madelin Miguel [facility] Internal Medicine Work Phone: Comment on above: Room air 02-12-2020 12:59-0400 Respiratory Rate 16 /min Tracy Kapadia [facility] Internal Medicine Work Phone: Comment on above: Pattern: Unlabored 02-12-2020 12:59-0400 SaO2% (BldA) [Mass fraction] 97 % Tracy Walkeryissel ERNANDEZ [facility]; [facility] Work Phone: Comment on above: Room air 01-21-2020 13:34-0400 BMI (Body Mass Index) 28.35 kg/m2 Kiki Cain RN [facility] Work Phone: Comment on above: 130/88 recheck bp 01-21-2020 13:34-0400 Body Temperature 96.8 [degF] Kiki Cain RN [facility] Work Phone: Comment on above: Method: Temporal 130/88 recheck bp 01-21-2020 13:34-0400 Body weight 77.28 kg Kiki Cain RN [facility] Work Phone: Comment on above: 130/88 recheck bp 01-21-2020 13:34-0400 BP Diastolic 90 mm[Hg] Kiki Cain RN [facility] Work Phone: Comment on above: Patient Position: Sitting; Cuff Location : Left Arm; Cuff Size: Standard 130/88 recheck bp 01-21-2020 13:34-0400 BP Systolic 142 mm[Hg] Kiki Cain RN [facility] Work Phone: Comment on above: Patient Position: Sitting; Cuff Location : Left Arm; Cuff Size: Standard 130/88 recheck bp 01-21-2020 13:34-0400 BSA (Body Surface Area) 1.85 m2 Kiki Cain RN [facility] Work Phone: Comment on above: 130/88 recheck bp 01-21-2020 13:34-0400 Height 165.1 cm Kiki Cain RN [facility] Work Phone: Comment on above: 130/88 recheck bp 01-21-2020 13:34-0400 Pulse (Heart Rate) 89 /min Kiki Cain RN [facility] Work Phone: Comment on above: Pattern: Regular 130/88 recheck bp 01-21-2020 13:34-0400 Pulse Oximetry 91 % Madelin Alberto [facility] Work Phone: Comment on above: Room air 130/88 recheck bp 01-21-2020 13:34-0400 Respiratory Rate 18 /min Kiki Cain RN [facility] Work Phone: Comment on above: Pattern: Unlabored 130/88 recheck bp 01-21-2020 13:34-0400 SaO2% (BldA) [Mass fraction] 91 % Kiki Cain RN [facility]; [facility] Work Phone: Comment on above: Room air 130/88 recheck bp 05-06-2019 16:14-0400 BMI (Body Mass Index) 29.18 kg/m2 Tracy Kapadia [facility] Work Phone: 05-06-2019 16:14-0400 Body Temperature 98.2 [degF] Tracy Kapadia [facility] Work Phone: Comment on above: Method: Temporal 05-06-2019 16:14-0400 Body weight 79.55 kg Tracy Kapadia [facility] Work Phone: 05-06-2019 16:14-0400 BP Diastolic 84 mm[Hg] Tracy Kang [facility] Work Phone: Comment on above: Patient Position: Sitting; Cuff Location : Left Arm; Cuff Size: Standard 05-06-2019 16:14-0400 BP Systolic 138 mm[Hg] Tracy Kapadia [facility] Work Phone: Comment on above: Patient Position: Sitting; Cuff Location : Left Arm; Cuff Size: Standard 05-06-2019 16:14-0400 BSA (Body Surface Area) 1.87 m2 Tracy Walkerius [facility] Work Phone: 05-06-2019 16:14-0400 Height 165.1 cm Tracy Walkerius [facility] Work Phone: 05-06-2019 16:14-0400 Pulse (Heart Rate) 82 /min Tracy Walkerius [facility] Work Phone: Comment on above: Pattern: Regular 05-06-2019 16:14-0400 Pulse Oximetry 95 % Madelin Alberto [facility] Work Phone: Comment on above: Room air 05-06-2019 16:14-0400 Respiratory Rate 18 /min Tracy Kapadia [facility] Work Phone: Comment on above: Pattern: Unlabored 05-06-2019 16:14-0400 SaO2% (BldA) [Mass fraction] 95 % Tracy Kapadia [facility]; [facility] Work Phone: Comment on above: Room air 01-28-2019 11:47-0400 BMI (Body Mass Index) 29.52 kg/m2 Tracy Kapadia [facility] Work Phone: 01-28-2019 11:47-0400 Body Temperature 97.2 [degF] Tracy Kapadia [facility] Work Phone: Comment on above: Method: Temporal 01-28-2019 11:47-0400 Body weight 80.46 kg Tracy Kapadia [facility] Work Phone: 01-28-2019 11:47-0400 BP Diastolic 86 mm[Hg] Tracy Kapadia [facility] Work Phone: Comment on above: Patient Position: Sitting; Cuff Location : Left Arm; Cuff Size: Standard 01-28-2019 11:47-0400 BP Systolic 126 mm[Hg] Tracy Kapadia [facility] Work Phone: Comment on above: Patient Position: Sitting; Cuff Location : Left Arm; Cuff Size: Standard 01-28-2019 11:47-0400 BSA (Body Surface Area) 1.88 m2 Tracy Kapadia [facility] Work Phone: 01-28-2019 11:47-0400 Height 165.1 cm Tracy Kapadia [facility] Work Phone: 01-28-2019 11:47-0400 Pulse (Heart Rate) 77 /min Tracy Kapadia [facility] Work Phone: Comment on above: Pattern: Regular 01-28-2019 11:47-0400 Pulse Oximetry 93 % Madelin Alberto [facility] Work Phone: Comment on above: Room air 01-28-2019 11:47-0400 Respiratory Rate 18 /min Tracy Kapadia [facility] Work Phone: Comment on above: Pattern: Unlabored 01-28-2019 11:47-0400 SaO2% (BldA) [Mass fraction] 93 % Tracy Kapadia [facility]; [facility] Work Phone: Comment on above: Room air 08-20-2018 08:56-0500 BMI (Body Mass Index) 29.52 kg/m2 Bernarda Minaya RN [facility] Work Phone: 08-20-2018 08:56-0500 Body Temperature 96.8 [degF] Bernarda Minaya RN [facility] Work Phone: Comment on above: Method: Temporal 08-20-2018 08:56-0500 Body weight 80.46 kg Bernarda Minaya RN [facility] Work Phone: 08-20-2018 08:56-0500 BP Diastolic 80 mm[Hg] Bernarda Minaya RN [facility] Work Phone: Comment on above: Patient Position: Sitting; Cuff Location : Left Arm; Cuff Size: Standard 08-20-2018 08:56-0500 BP Systolic 132 mm[Hg] Bernarda Minaya RN [facility] Work Phone: Comment on above: Patient Position: Sitting; Cuff Location : Left Arm; Cuff Size: Standard 08-20-2018 08:56-0500 BSA (Body Surface Area) 1.88 m2 Bernarda Minaya RN [facility] Work Phone: 08-20-2018 08:56-0500 Height 165.1 cm Bernarda Minaya RN [facility] Work Phone: 08-20-2018 08:56-0500 Pulse (Heart Rate) 88 /min Bernarda Minaya RN [facility] Work Phone: Comment on above: Pattern: Regular 08-20-2018 08:56-0500 Pulse Oximetry 90 % Madelin Alberto [facility] Work Phone: Comment on above: Room air 08-20-2018 08:56-0500 Respiratory Rate 16 /min Bernarda Minaya RN [facility] Work Phone: Comment on above: Pattern: Unlabored 08-20-2018 08:56-0500 SaO2% (BldA) [Mass fraction] 90 % Bernarda Minaya RN [facility]; [facility] Work Phone: Comment on above: Room air 07-02-2018 15:29-0400 BMI (Body Mass Index) 29.52 kg/m2 Kiki Cain RN [facility] Work Phone: 07-02-2018 15:29-0400 Body weight 80.46 kg Kiki Cain RN [facility] Work Phone: 07-02-2018 15:29-0400 BP Diastolic 82 mm[Hg] Kiki Cain RN [facility] Work Phone: Comment on above: Patient Position: Sitting; Cuff Location : Left Arm; Cuff Size: Large 07-02-2018 15:29-0400 BP Systolic 138 mm[Hg] Kiki Cain RN [facility] Work Phone: Comment on above: Patient Position: Sitting; Cuff Location : Left Arm; Cuff Size: Large 07-02-2018 15:29-0400 BSA (Body Surface Area) 1.88 m2 Kiki Cain RN [facility] Work Phone: 07-02-2018 15:29-0400 Height 165.1 cm Kiki Cain RN [facility] Work Phone: 07-02-2018 15:29-0400 Pulse (Heart Rate) 82 /min Kiki Cain RN [facility] Work Phone: Comment on above: Pattern: Regular 07-02-2018 15:29-0400 Pulse Oximetry 95 % Madelni Alberto [facility] Work Phone: Comment on above: Room air 07-02-2018 15:29-0400 Respiratory Rate 18 /min Kiki Cain RN [facility] Work Phone: Comment on above: Pattern: Unlabored 07-02-2018 15:29-0400 SaO2% (BldA) [Mass fraction] 95 % Kiki Cain RN [facility]; [facility] Work Phone: Comment on above: Room air 07-02-2018 15:29-0400 Weight 80.46 kg Madelin Alberto [facility] Work Phone: 04-30-2018 16:14-0400 BMI (Body Mass Index) 28.98 kg/m2 Kiki Cain RN [facility] Work Phone: 04-30-2018 16:14-0400 Body weight 78.98 kg Kiki Cain RN [facility] Work Phone: 04-30-2018 16:14-0400 BP Diastolic 80 mm[Hg] Kiki Cain RN [facility] Work Phone: Comment on above: Patient Position: Sitting; Cuff Location : Left Arm; Cuff Size: Large 04-30-2018 16:14-0400 BP Systolic 130 mm[Hg] Kiki Cain RN [facility] Work Phone: Comment on above: Patient Position: Sitting; Cuff Location : Left Arm; Cuff Size: Large 04-30-2018 16:14-0400 BSA (Body Surface Area) 1.87 m2 Kiki Cain RN [facility] Work Phone: 04-30-2018 16:14-0400 Height 165.1 cm Kiki Cain RN [facility] Work Phone: 04-30-2018 16:14-0400 Pulse (Heart Rate) 78 /min Kiki Cain RN [facility] Work Phone: Comment on above: Pattern: Regular 04-30-2018 16:14-0400 Pulse Oximetry 93 % Madelin Alberto [facility] Work Phone: Comment on above: Room air 04-30-2018 16:14-0400 Respiratory Rate 18 /min Kiki Cain RN [facility] Work Phone: Comment on above: Pattern: Unlabored 04-30-2018 16:14-0400 SaO2% (BldA) [Mass fraction] 93 % Kiki Cain RN [facility]; [facility] Work Phone: Comment on above: Room air 04-30-2018 16:14-0400 Weight 78.98 kg Madelin Alberto [facility] Work Phone: 03-26-2018 13:57-0400 BMI (Body Mass Index) 28.87 kg/m2 Sarah Sanchez [facility] Work Phone: 03-26-2018 13:57-0400 Body Temperature 97.1 [degF] Sarah Sanchez [facility] Work Phone: Comment on above: Method: Temporal 03-26-2018 13:57-0400 Body weight 78.7 kg Sarah Sanchez [facility] Work Phone: 03-26-2018 13:57-0400 BP Diastolic 88 mm[Hg] Sarah Sanchez [facility] Work Phone: Comment on above: Patient Position: Sitting; Cuff Location : Left Arm; Cuff Size: Standard 03-26-2018 13:57-0400 BP Systolic 148 mm[Hg] Sarah Sanchez [facility] Work Phone: Comment on above: Patient Position: Sitting; Cuff Location : Left Arm; Cuff Size: Standard 03-26-2018 13:57-0400 BSA (Body Surface Area) 1.86 m2 Sarah Sanchez [facility] Work Phone: 03-26-2018 13:57-0400 Height 165.1 cm Sarah Sanchez [facility] Work Phone: 03-26-2018 13:57-0400 Pulse (Heart Rate) 70 /min Sarah Sanchez [facility] Work Phone: Comment on above: Pattern: Regular 03-26-2018 13:57-0400 Respiratory Rate 16 /min Sarah Sanchez [facility] Work Phone: Comment on above: Pattern: Unlabored 03-26-2018 13:57-0400 Weight 78.7 kg Madelin Alberto [facility] Work Phone: 03-21-2018 13:27-0400 BMI (Body Mass Index) 28.87 kg/m2 Kiki Cain RN [facility] Work Phone: 03-21-2018 13:27-0400 Body weight 78.7 kg Kiki Cain RN [facility] Work Phone: 03-21-2018 13:27-0400 BP Diastolic 80 mm[Hg] Kiki Cain RN [facility] Work Phone: Comment on above: Patient Position: Sitting; Cuff Location : Left Arm; Cuff Size: Large 03-21-2018 13:27-0400 BP Systolic 138 mm[Hg] Kiki Cain RN [facility] Work Phone: Comment on above: Patient Position: Sitting; Cuff Location : Left Arm; Cuff Size: Large 03-21-2018 13:27-0400 BSA (Body Surface Area) 1.86 m2 Kiki Cain RN [facility] Work Phone: 03-21-2018 13:27-0400 Height 165.1 cm Kiki Cain RN [facility] Work Phone: 03-21-2018 13:27-0400 Pulse (Heart Rate) 85 /min Kiki Cain RN [facility] Work Phone: Comment on above: Pattern: Regular 03-21-2018 13:27-0400 Pulse Oximetry 93 % Madelin Alberto [facility] Work Phone: Comment on above: Room air 03-21-2018 13:27-0400 Respiratory Rate 18 /min Kiki Cain RN [facility] Work Phone: Comment on above: Pattern: Unlabored 03-21-2018 13:27-0400 SaO2% (BldA) [Mass fraction] 93 % Kiki Cain RN [facility]; [facility] Work Phone: Comment on above: Room air 03-21-2018 13:27-0400 Weight 78.7 kg Madelin Miguel [facility] Work Phone: 03-05-2018 16:04-0400 BMI (Body Mass Index) 28.87 kg/m2 Kiki Cain RN [facility] Work Phone: 03-05-2018 16:04-0400 Body weight 78.7 kg Kiki Cain RN [facility] Work Phone: 03-05-2018 16:04-0400 BP Diastolic 84 mm[Hg] Kiki Cain RN [facility] Work Phone: Comment on above: Patient Position: Sitting; Cuff Location : Left Arm; Cuff Size: Large 03-05-2018 16:04-0400 BP Systolic 138 mm[Hg] Kiki Cain RN [facility] Work Phone: Comment on above: Patient Position: Sitting; Cuff Location : Left Arm; Cuff Size: Large 03-05-2018 16:04-0400 BSA (Body Surface Area) 1.86 m2 iKki Cain RN [facility] Work Phone: 03-05-2018 16:04-0400 Height 165.1 cm Kiki Cain RN [facility] Work Phone: 03-05-2018 16:04-0400 Pulse (Heart Rate) 79 /min Kiki Cain RN [facility] Work Phone: Comment on above: Pattern: Regular 03-05-2018 16:04-0400 Pulse Oximetry 93 % Madelin Alberto [facility] Work Phone: Comment on above: Room air 03-05-2018 16:04-0400 Respiratory Rate 18 /min Kiki Cain RN [facility] Work Phone: Comment on above: Pattern: Unlabored 03-05-2018 16:04-0400 SaO2% (BldA) [Mass fraction] 93 % Kiki Cain RN [facility]; [facility] Work Phone: Comment on above: Room air 03-05-2018 16:04-0400 Weight 78.7 kg Madelin Miguel [facility] Work Phone: 01-09-2018 11:02-0400 BMI (Body Mass Index) 28.62 kg/m2 Bernarda Minaya RN [facility] Work Phone: 01-09-2018 11:02-0400 Body Temperature 97.6 [degF] Bernarda Minaya RN [facility] Work Phone: Comment on above: Method: Temporal 01-09-2018 11:02-0400 Body weight 78.02 kg Bernarda Chacorta Rei GRECO [facility] Work Phone: 01-09-2018 11:02-0400 BP Diastolic 84 mm[Hg] Bernarda Minaya RN [facility] Work Phone: Comment on above: Patient Position: Sitting; Cuff Location : Left Arm; Cuff Size: Standard 01-09-2018 11:02-0400 BP Systolic 132 mm[Hg] Bernarda Minaya RN [facility] Work Phone: Comment on above: Patient Position: Sitting; Cuff Location : Left Arm; Cuff Size: Standard 01-09-2018 11:02-0400 BSA (Body Surface Area) 1.86 m2 Bernarda Minaya RN [facility] Work Phone: 01-09-2018 11:02-0400 Height 165.1 cm Bernarda Minaya RN [facility] Work Phone: 01-09-2018 11:02-0400 Pulse (Heart Rate) 92 /min Bernarda Minaya RN [facility] Work Phone: Comment on above: Pattern: Regular 01-09-2018 11:02-0400 Pulse Oximetry 95 % Madelin Miguel [facility] Work Phone: Comment on above: Room air 01-09-2018 11:02-0400 Respiratory Rate 16 /min Bernarda Minaya RN [facility] Work Phone: Comment on above: Pattern: Unlabored 01-09-2018 11:02-0400 SaO2% (BldA) [Mass fraction] 95 % Bernarda Minaya RN [facility]; [facility] Work Phone: Comment on above: Room air 01-09-2018 11:02-0400 Weight 78.02 kg Madelin Gomezon [facility] Work Phone: 12-02-2017 16:38-0500 BMI (Body Mass Index) 29.14 kg/m2 Hiwot [facility] Work Phone: Comment on above: recheck bp 158/100 12-02-2017 16:38-0500 Body weight 79.44 kg Hiwot Lowe [facility] Work Phone: Comment on above: recheck bp 158/100 12-02-2017 16:38-0500 BP Diastolic 108 mm[Hg] Hiwot Lowe [facility] Work Phone: Comment on above: Patient Position: Sitting; Cuff Location : Left Arm; Cuff Size: Large recheck bp 158/100 12-02-2017 16:38-0500 BP Systolic 162 mm[Hg] Hiwot Lowe [facility] Work Phone: Comment on above: Patient Position: Sitting; Cuff Location : Left Arm; Cuff Size: Large recheck bp 158/100 12-02-2017 16:38-0500 BSA (Body Surface Area) 1.87 m2 Hiwot Lowe [facility] Work Phone: Comment on above: recheck bp 158/100 12-02-2017 16:38-0500 Height 165.1 cm Hiwot Lowe [facility] Work Phone: Comment on above: recheck bp 158/100 12-02-2017 16:38-0500 Pulse (Heart Rate) 92 /min Hiwot Lowe [facility] Work Phone: Comment on above: Pattern: Regular recheck bp 158/100 12-02-2017 16:38-0500 Pulse Oximetry 94 % Madelin Alberto [facility] Work Phone: Comment on above: Room air recheck bp 158/100 12-02-2017 16:38-0500 Respiratory Rate 18 /min Hiwot Lowe [facility] Work Phone: Comment on above: Pattern: Unlabored recheck bp 158/100 12-02-2017 16:38-0500 SaO2% (BldA) [Mass fraction] 94 % Hiwot Lowe [facility]; [facility] Work Phone: Comment on above: Room air recheck bp 158/100 12-02-2017 16:38-0500 Weight 79.44 kg Madelin Alberto [facility] Work Phone: 11-05-2017 08:26-0500 BMI (Body Mass Index) 29.16 kg/m2 Hiwot Mynor [facility]ear[facility] Work Phone: 11-05-2017 08:26-0500 [facility]: 11-05-2017 08:26-0500 BP Diastolic 94 mm[Hg] [facility] Work [facility]: Comment on above: Patient Position: Sitting; Cuff Location : Left Arm; Cuff Size: Standard 11-05-2017 08:26-0500 BP Systolic 158 mm[Hg] Hiwot [facility] Work Phone: Comment on above: Patient Position: Sitting; Cuff Location : Left Arm; Cuff Size: Standard 11-05-2017 08:26-0500 BSA (Body Surface Area) 1.87 m2 Hiwot [facility] Work Phone: 11-05-2017 08:26-0500 Height 165.1 [facility] Work [facility]: 11-05-2017 08:26-0500 Pulse (Heart Rate) 85 /min [facility] Work [facility]: Comment on above: Pattern: Regular 11-05-2017 08:26-0500 Pulse Oximetry 95 % Madelin Alberto [facility] Internal Medicine Work Phone: Comment on above: Room air 11-05-2017 08:26-0500 Respiratory Rate 18 /min [facility] Work [facility]: Comment on above: Pattern: Unlabored 11-05-2017 08:26-0500 SaO2% (BldA) [Mass fraction] 95 % [facility] Work Phone: Comment on above: Room air 11-05-2017 08:26-0500 Weight 79.49 kg Madelin Alberto [facility] Medicine Work Phone: 09-20-2017 09:45-0500 BMI (Body Mass Index) 29.16 kg/m2 Krissy Ambrosio LPN [facility] Work Phone: 09-20-2017 09:45-0500 Body Temperature 98.1 [degF] Krissy Manavrb ATTENUATOR [facility] Work Phone: 09-20-2017 09:45-0500 Body weight 79.49 kg Krissy Manavrb ATTENUATOR [facility] Work Phone: 09-20-2017 09:45-0500 BP Diastolic 82 mm[Hg] Krissy Slarb ATTENUATOR [facility] Work Phone: Comment on above: Patient Position: Sitting; Cuff Location : Left Arm; Cuff Size: Standard 09-20-2017 09:45-0500 BP Systolic 132 mm[Hg] Krissy Slarb ATTENUATOR [facility] Work Phone: Comment on above: Patient Position: Sitting; Cuff Location : Left Arm; Cuff Size: Standard 09-20-2017 09:45-0500 BSA (Body Surface Area) 1.87 m2 Krissy Slarb ATTENUATOR [facility] Work Phone: 09-20-2017 09:45-0500 Height 165.1 cm Krissy Slarb ATTENUATOR [facility] Work Phone: 09-20-2017 09:45-0500 Pulse (Heart Rate) 80 /min Krissy Manavrb ATTENUATOR [facility] Work Phone: Comment on above: Pattern: Regular 09-20-2017 09:45-0500 Pulse Oximetry 98 % Madelin Alberto [facility] Medicine Work Phone: Comment on above: Room air 09-20-2017 09:45-0500 Respiratory Rate 16 /min Krissy Manavrb ATTENUATOR [facility] Work Phone: Comment on above: Pattern: Unlabored 09-20-2017 09:45-0500 SaO2% (BldA) [Mass fraction] 98 % Krissy Slarb ATTENUATOR [facility]; [facility] Work Phone: Comment on above: Room air 09-20-2017 09:45-0500 Weight 79.49 kg Madelin Alberto [facility] Work Phone: 08-07-2017 15:53-0500 BMI (Body Mass Index) 29.16 kg/m2 Kiki Cain RN [facility] Work Phone: 08-07-2017 15:53-0500 Body weight 79.49 kg Kiki Cain RN [facility] Work Phone: 08-07-2017 15:53-0500 BP Diastolic 100 mm[Hg] Kiki Cain RN [facility] Work Phone: Comment on above: Patient Position: Sitting; Cuff Location : Left Arm; Cuff Size: Large 08-07-2017 15:53-0500 BP Systolic 184 mm[Hg] Kiki Cain RN [facility] Work Phone: Comment on above: Patient Position: Sitting; Cuff Location : Left Arm; Cuff Size: Large 08-07-2017 15:53-0500 BSA (Body Surface Area) 1.87 m2 Kiki Cain RN [facility] Work Phone: 08-07-2017 15:53-0500 Height 165.1 cm Kiki Cain RN [facility] Work Phone: 08-07-2017 15:53-0500 Pulse (Heart Rate) 92 /min iKki Cain RN [facility] Work Phone: Comment on above: Pattern: Regular 08-07-2017 15:53-0500 Pulse Oximetry 95 % Madelin Gomezon [facility] Work Phone: Comment on above: Room air 08-07-2017 15:53-0500 Respiratory Rate 18 /min Kiki Cain RN [facility] Work Phone: Comment on above: Pattern: Unlabored 08-07-2017 15:53-0500 SaO2% (BldA) [Mass fraction] 95 % Kiki Cain RN [facility]; [facility] Work Phone: Comment on above: Room air 08-07-2017 15:53-0500 Weight 79.49 kg Madelin Alberto [facility] Work Phone: 07-31-2017 10:32-0400 BMI (Body Mass Index) 29.16 kg/m2 Kiki Cain RN [facility] Work Phone: 07-31-2017 10:32-0400 Body weight 79.49 kg Kiki Cain RN [facility] Work Phone: 07-31-2017 10:32-0400 BP Diastolic 82 mm[Hg] Kiki Cain RN [facility] Work Phone: Comment on above: Patient Position: Sitting; Cuff Location : Left Arm; Cuff Size: Large 07-31-2017 10:32-0400 BP Systolic 142 mm[Hg] Kiki Cain RN [facility] Work Phone: Comment on above: Patient Position: Sitting; Cuff Location : Left Arm; Cuff Size: Large 07-31-2017 10:32-0400 BSA (Body Surface Area) 1.87 m2 Kiki Cain RN [facility] Work Phone: 07-31-2017 10:32-0400 Height 165.1 cm Kiki Cain RN [facility] Work Phone: 07-31-2017 10:32-0400 Pulse (Heart Rate) 83 /min Kiki Cain RN [facility] Work Phone: Comment on above: Pattern: Regular 07-31-2017 10:32-0400 Pulse Oximetry 93 % Madelin Alberto [facility] Work Phone: Comment on above: Room air 07-31-2017 10:32-0400 Respiratory Rate 18 /min Kiki Cain RN [facility] Work Phone: Comment on above: Pattern: Unlabored 07-31-2017 10:32-0400 SaO2% (BldA) [Mass fraction] 93 % Kiki Cain RN [facility]; [facility] Work Phone: Comment on above: Room air 07-31-2017 10:32-0400 Weight 79.49 kg Madelin Alberto [facility] Work Phone: 04-22-2017 16:03-0400 BMI (Body Mass Index) 30.29 kg/m2 Bernarda Minaya RN [facility] Internal Medicine Work Phone: 04-22-2017 16:03-0400 Body Temperature 97.6 [degF] Bernarda Minaya RN [facility] Work Phone: Comment on above: Method: Temporal 04-22-2017 16:03-0400 Body weight 82.56 kg Bernarda Minaya RN [facility] Work Phone: 04-22-2017 16:03-0400 BP Diastolic 78 mm[Hg] Bernarda Minaya RN [facility] Work Phone: Comment on above: Patient Position: Sitting; Cuff Location : Left Arm; Cuff Size: Standard 04-22-2017 16:03-0400 BP Systolic 120 mm[Hg] Bernarda Minaya RN [facility] Work Phone: Comment on above: Patient Position: Sitting; Cuff Location : Left Arm; Cuff Size: Standard 04-22-2017 16:03-0400 BSA (Body Surface Area) 1.9 m2 Bernarda Minaya RN [facility] Work Phone: 04-22-2017 16:03-0400 Height 165.1 cm Bernarda Minaya RN [facility] Work Phone: 04-22-2017 16:03-0400 Pulse (Heart Rate) 72 /min Bernarda Minaya RN [facility] Work Phone: Comment on above: Pattern: Regular 04-22-2017 16:03-0400 Respiratory Rate 16 /min Bernarda Minaya RN [facility] Work Phone: Comment on above: Pattern: Unlabored 04-22-2017 16:03-0400 Weight 82.56 kg Madelin Alberto [facility] Work Phone: 08-17-2016 13:42-0500 Body Temperature 99.3 [degF] Krissy Ambrosio LPN [facility] Work Phone: 08-17-2016 13:42-0500 BP Diastolic 80 mm[Hg] Krissy Slarb MADDIE [facility] Work Phone: Comment on above: Patient Position: Sitting; Cuff Location : Left Arm; Cuff Size: Standard 08-17-2016 13:42-0500 BP Systolic 126 mm[Hg] Krissy Slarb ATTENUATOR [facility] Work Phone: Comment on above: Patient Position: Sitting; Cuff Location : Left Arm; Cuff Size: Standard 08-17-2016 13:42-0500 Pulse (Heart Rate) 93 /min Krissy Ambrosio LPN [facility] Work Phone: Comment on above: Pattern: Regular 08-17-2016 13:42-0500 Pulse Oximetry 94 % Madelin Alberto [facility] Work Phone: Comment on above: Room air 08-17-2016 13:42-0500 Respiratory Rate 17 /min Krissy Ambrosio LPN [facility] Work Phone: Comment on above: Pattern: Unlabored 08-17-2016 13:42-0500 SaO2% (BldA) [Mass fraction] 94 % Krissy Ambrosio LPN [facility]; [facility] Work Phone: Comment on above: Room air 09-15-2015 07:31-0500 BMI (Body Mass Index) 28.71 kg/m2 Kiki Cain RN [facility] Work Phone: 09-15-2015 07:31-0500 Body Temperature 97.2 [degF] Kiki Cain RN [facility] Work Phone: Comment on above: Method: Temporal 09-15-2015 07:31-0500 Body weight 78.25 kg Kiki Cain RN [facility] Work Phone: 09-15-2015 07:31-0500 BP Diastolic 74 mm[Hg] Kiki Cain RN [facility] Work Phone: Comment on above: Patient Position: Sitting; Cuff Location : Left Arm; Cuff Size: Standard 09-15-2015 07:31-0500 BP Systolic 116 mm[Hg] Kiki Cain RN [facility] Work Phone: Comment on above: Patient Position: Sitting; Cuff Location : Left Arm; Cuff Size: Standard 09-15-2015 07:31-0500 BSA (Body Surface Area) 1.86 m2 Kiki Cain RN [facility] Work Phone: 09-15-2015 07:31-0500 Height 165.1 cm Kiki Cain RN [facility] Work Phone: 09-15-2015 07:31-0500 Pulse (Heart Rate) 80 /min Kiki Cain RN [facility] Work Phone: Comment on above: Pattern: Regular 09-15-2015 07:31-0500 Pulse Oximetry 94 % Madelin Alberto [facility] Work Phone: Comment on above: Room air 09-15-2015 07:31-0500 Respiratory Rate 18 /min Kiki Cain RN [facility] Work Phone: Comment on above: Pattern: Unlabored 09-15-2015 07:31-0500 SaO2% (BldA) [Mass fraction] 94 % Kiki Cain RN [facility]; [facility] Work Phone: Comment on above: Room air 09-15-2015 07:31-0500 Weight 78.25 kg Madelin Alberto [facility] Work Phone: 08-03-2015 11:54-0500 BMI (Body Mass Index) 29.85 kg/m2 Kiki Cain RN [facility] Work Phone: 08-03-2015 11:54-0500 Body weight 81.36 kg Kiki Cain RN [facility] Work Phone: 08-03-2015 11:54-0500 BP Diastolic 88 mm[Hg] Kiki Cain RN [facility] Work Phone: Comment on above: Patient Position: Sitting; Cuff Location : Left Arm; Cuff Size: Large 08-03-2015 11:54-0500 BP Systolic 138 mm[Hg] Kiki Cain RN [facility] Work Phone: Comment on above: Patient Position: Sitting; Cuff Location : Left Arm; Cuff Size: Large 08-03-2015 11:54-0500 BSA (Body Surface Area) 1.89 m2 Kiki aCin RN [facility] Work Phone: 08-03-2015 11:54-0500 Height 165.1 cm Kiki Cain RN [facility] Work Phone: 08-03-2015 11:54-0500 Pulse (Heart Rate) 76 /min Kiki Cian RN [facility] Work Phone: Comment on above: Pattern: Regular 08-03-2015 11:54-0500 Pulse Oximetry 96 % Madelin Miguel [facility] Work Phone: Comment on above: Room air 08-03-2015 11:54-0500 Respiratory Rate 20 /min Kiki Cain RN [facility] Work Phone: Comment on above: Pattern: Unlabored 08-03-2015 11:54-0500 SaO2% (BldA) [Mass fraction] 96 % Kiki Cain RN [facility]; [facility] Work Phone: Comment on above: Room air 08-03-2015 11:54-0500 Weight 81.36 kg Madelin Gomezon [facility] Work Phone: 07-01-2015 11:35-0400 BMI (Body Mass Index) 30.45 kg/m2 Bernarda Minaya RN [facility] Work Phone: 07-01-2015 11:35-0400 Body Temperature 98.2 [degF] Bernarda Minaya RN [facility] Work Phone: Comment on above: Method: Temporal 07-01-2015 11:35-0400 Body weight 83.01 kg Bernarda Minaya RN [facility] Work Phone: 07-01-2015 11:35-0400 BP Diastolic 80 mm[Hg] Bernarda Minaya RN [facility] Work Phone: Comment on above: Patient Position: Sitting; Cuff Location : Left Arm; Cuff Size: Standard 07-01-2015 11:35-0400 BP Systolic 126 mm[Hg] Bernarda Minaya RN [facility] Work Phone: Comment on above: Patient Position: Sitting; Cuff Location : Left Arm; Cuff Size: Standard 07-01-2015 11:35-0400 BSA (Body Surface Area) 1.9 m2 Bernarda Minaya RN [facility] Work Phone: 07-01-2015 11:35-0400 Height 165.1 cm Bernarda Minaya RN [facility] Work Phone: 07-01-2015 11:35-0400 Pulse (Heart Rate) 81 /min Bernarda Minaya RN [facility] Work Phone: Comment on above: Pattern: Regular 07-01-2015 11:35-0400 Respiratory Rate 18 /min Bernarda Minaya RN [facility] Work Phone: Comment on above: Pattern: Unlabored 07-01-2015 11:35-0400 Weight 83.01 kg Madelin Alberto [facility] Work Phone: 02-16-2015 11:51-0400 BMI (Body Mass Index) 31.28 kg/m2 Kiki Cain RN [facility] Work Phone: 02-16-2015 11:51-0400 Body weight 85.28 kg Kkii Cain RN [facility] Work Phone: 02-16-2015 11:51-0400 BP Diastolic 70 mm[Hg] Kiki Cain RN [facility] Work Phone: Comment on above: Patient Position: Sitting; Cuff Location : Left Arm; Cuff Size: Large 02-16-2015 11:51-0400 BP Systolic 118 mm[Hg] Kiki Cain RN [facility] Work Phone: Comment on above: Patient Position: Sitting; Cuff Location : Left Arm; Cuff Size: Large 02-16-2015 11:51-0400 BSA (Body Surface Area) 1.93 m2 Kiki Cain RN [facility] Work Phone: 02-16-2015 11:51-0400 Height 165.1 cm Kiki Cain RN [facility] Work Phone: 02-16-2015 11:51-0400 Pulse (Heart Rate) 84 /min Kiki Cani RN [facility] Work Phone: Comment on above: Pattern: Regular 02-16-2015 11:51-0400 Pulse Oximetry 94 % Madelin Alberto [facility] Work Phone: Comment on above: Room air 02-16-2015 11:51-0400 Respiratory Rate 18 /min Kiki Cain RN [facility] Work Phone: Comment on above: Pattern: Unlabored 02-16-2015 11:51-0400 SaO2% (BldA) [Mass fraction] 94 % Kiki Cain RN [facility]; [facility] Work Phone: Comment on above: Room air 02-16-2015 11:51-0400 Weight 85.28 kg Madelin Alberto [facility] Work Phone: 01-27-2014 10:12-0400 BMI (Body Mass Index) 28.79 kg/m2 Kiki Cain RN [facility] Work Phone: 01-27-2014 10:12-0400 Body weight 78.47 kg Kiki Cain RN [facility] Work Phone: 01-27-2014 10:12-0400 BP Diastolic 80 mm[Hg] Kiki Cain RN [facility] Work Phone: Comment on above: Patient Position: Sitting; Cuff Location : Left Arm; Cuff Size: Large 01-27-2014 10:12-0400 BP Systolic 122 mm[Hg] Kiki Cain RN [facility] Work Phone: Comment on above: Patient Position: Sitting; Cuff Location : Left Arm; Cuff Size: Large 01-27-2014 10:120400 BSA (Body Surface Area) 1.86 m2 Kiki Cain RN [facility] Work Phone: 01-27-2014 10:120400 Height 165.1 cm Kiki Cain RN [facility] Work Phone: 01-27-2014 10:12-0400 Pulse (Heart Rate) 80 /min Kiki Cain RN [facility] Work Phone: Comment on above: Pattern: Regular 01-27-2014 10:120400 Pulse Oximetry 95 % Madelin Gomezon [facility] Work Phone: Comment on above: Room air 01-27-2014 10:12-0400 Respiratory Rate 20 /min Kiki Cain RN [facility] Work Phone: Comment on above: Pattern: Unlabored 01-27-2014 10:12-0400 SaO2% (BldA) [Mass fraction] 95 % Kiki Cain RN [facility]; [facility] Work Phone: Comment on above: Room air 01-27-2014 10:12-0400 Weight 78.47 kg Madelin Alberto [facility] Work Phone: 12-01-2012 16:19-0500 BMI (Body Mass Index) 31.35 kg/m2 Paz Huff LPN [facility] Work Phone: 12-01-2012 16:19-0500 Body Temperature 97.9 [degF] Paz Huff LPN [facility] Work Phone: Comment on above: Method: Oral 12-01-2012 16:19-0500 Body weight 85.45 kg Paz Huff LPN [facility] Work Phone: 12-01-2012 16:19-0500 BP Diastolic 72 mm[Hg] Paz Huff LPN [facility] Work Phone: Comment on above: Patient Position: Sitting; Cuff Location : Left Arm; Cuff Size: Standard 12-01-2012 16:19-0500 BP Systolic 120 mm[Hg] Paz Huff LPN [facility] Work Phone: Comment on above: Patient Position: Sitting; Cuff Location : Left Arm; Cuff Size: Standard 12-01-2012 16:19-0500 BSA (Body Surface Area) 1.93 m2 Paz Huff LPN [facility] Work Phone: 12-01-2012 16:19-0500 Height 165.1 cm Paz Huff LPN [facility] Work Phone: 12-01-2012 16:19-0500 Pulse (Heart Rate) 82 /min Paz Huff LPN [facility] Work Phone: Comment on above: Pattern: Regular 12-01-2012 16:19-0500 Pulse Oximetry 98 % Madelin Alberto [facility] Work Phone: Comment on above: Room air 12-01-2012 16:19-0500 Respiratory Rate 16 /min Paz Huff LPN [facility] Work Phone: 12-01-2012 16:19-0500 SaO2% (BldA) [Mass fraction] 98 % Paz Huff MADDIE [facility]; [facility] Work Phone: Comment on above: Room air 12-01-2012 16:19-0500 Weight 85.45 kg Madelin Alberto [facility] Work Phone: 08-06-2012 11:36-0500 BMI (Body Mass Index) 31.35 kg/m2 Kiki Cain RN [facility] Work Phone: 08-06-2012 11:36-0500 Body Temperature 97 [degF] Kiki Cain RN [facility] Work Phone: Comment on above: Method: Tympanic 08-06-2012 11:36-0500 Body weight 85.45 kg Kiki Cain RN [facility] Work Phone: 08-06-2012 11:36-0500 BP Diastolic 78 mm[Hg] Kiki Cain RN [facility] Work Phone: Comment on above: Patient Position: Sitting; Cuff Location : Left Arm; Cuff Size: Large 08-06-2012 11:36-0500 BP Systolic 118 mm[Hg] Kiki Cain RN [facility] Work Phone: Comment on above: Patient Position: Sitting; Cuff Location : Left Arm; Cuff Size: Large 08-06-2012 11:36-0500 BSA (Body Surface Area) 1.93 m2 Kiki Cain RN [facility] Work Phone: 08-06-2012 11:36-0500 Height 165.1 cm Kiki Cain RN [facility] Work Phone: 08-06-2012 11:36-0500 Pulse (Heart Rate) 60 /min Kiki Cain RN [facility] Work Phone: Comment on above: Pattern: Regular 08-06-2012 11:36-0500 Respiratory Rate 20 /min Kiki Cain RN [facility] Work Phone: Comment on above: Pattern: Unlabored 08-06-2012 11:36-0500 Weight 85.45 kg Madelin Alberto [facility] Work Phone: 06-30-2012 11:58-0400 BMI (Body Mass Index) 31.48 kg/m2 Kiki Cain RN [facility] Work Phone: 06-30-2012 11:58-0400 Body Temperature 98.1 [degF] Kiki Cain RN [facility] Work Phone: Comment on above: Method: Oral 06-30-2012 11:58-0400 Body weight 85.82 kg Kiki Cain RN [facility] Work Phone: 06-30-2012 11:58-0400 BP Diastolic 78 mm[Hg] Kiki Cain RN [facility] Work Phone: Comment on above: Patient Position: Sitting; Cuff Location : Left Arm; Cuff Size: Large 06-30-2012 11:58-0400 BP Systolic 122 mm[Hg] Kiki Cain RN [facility] Work Phone: Comment on above: Patient Position: Sitting; Cuff Location : Left Arm; Cuff Size: Large 06-30-2012 11:58-0400 BSA (Body Surface Area) 1.93 m2 Kiki Cain RN [facility] Work Phone: 06-30-2012 11:58-0400 Height 165.1 cm Kiki Cain RN [facility] Work Phone: 06-30-2012 11:58-0400 Pulse (Heart Rate) 64 /min Kiki Cain RN [facility] Work Phone: Comment on above: Pattern: Regular 06-30-2012 11:58-0400 Respiratory Rate 18 /min Kiki Cain RN [facility] Work Phone: Comment on above: Pattern: Unlabored 06-30-2012 11:58-0400 Weight 85.82 kg Madelin Alberto [facility] Work Phone: 02-01-2012 08:34-0400 BMI (Body Mass Index) 31.14 kg/m2 Bernarda Minaya RN [facility] Work Phone: 02-01-2012 08:34-0400 Body Temperature 95.4 [degF] Bernarda Minaya RN [facility] Work Phone: Comment on above: Method: Oral 02-01-2012 08:34-0400 Body weight 84.88 kg Bernarda Minaya RN [facility] Work Phone: 02-01-2012 08:34-0400 BP Diastolic 74 mm[Hg] Bernarda Minaya RN [facility] Work Phone: Comment on above: Patient Position: Sitting; Cuff Location : Left Arm; Cuff Size: Standard 02-01-2012 08:34-0400 BP Systolic 114 mm[Hg] Bernarda Minaya RN [facility] Work Phone: Comment on above: Patient Position: Sitting; Cuff Location : Left Arm; Cuff Size: Standard 02-01-2012 08:34-0400 BSA (Body Surface Area) 1.92 m2 Bernarda Minaya RN [facility] Work Phone: 02-01-2012 08:34-0400 Height 165.1 cm Bernarda Minaya RN [facility] Work Phone: 02-01-2012 08:34-0400 Pulse (Heart Rate) 76 /min Bernrada Minaya RN [facility] Work Phone: Comment on above: Pattern: Regular 02-01-2012 08:34-0400 Pulse Oximetry 95 % Madelin Miguel [facility] Work Phone: Comment on above: Room air 02-01-2012 08:34-0400 Respiratory Rate 16 /min Bernarad Minaya RN [facility] Work Phone: Comment on above: Pattern: Unlabored 02-01-2012 08:34-0400 SaO2% (BldA) [Mass fraction] 95 % Bernarda Minaya RN [facility]; [facility] Work Phone: Comment on above: Room air 02-01-2012 08:34-0400 Weight 84.88 kg Madelin Miguel [facility] Work Phone: 08-31-2011 14:28-0500 BMI (Body Mass Index) 31.14 kg/m2 Kiki Cain RN [facility] Work Phone: 08-31-2011 14:28-0500 Body Temperature 98.9 [degF] Kiki Cain RN [facility] Work Phone: Comment on above: Method: Oral 08-31-2011 14:28-0500 Body weight 84.88 kg Kiki Cain RN [facility] Work Phone: 08-31-2011 14:28-0500 BP Diastolic 92 mm[Hg] Kiki Cain RN [facility] Work Phone: Comment on above: Patient Position: Sitting; Cuff Location : Right Arm; Cuff Size: Large 08-31-2011 14:28-0500 BP Systolic 158 mm[Hg] Kiki Cain RN [facility] Work Phone: Comment on above: Patient Position: Sitting; Cuff Location : Right Arm; Cuff Size: Large 08-31-2011 14:28-0500 BSA (Body Surface Area) 1.92 m2 Kiki Cain RN [facility] Work Phone: 08-31-2011 14:28-0500 Height 165.1 cm Kiki Cain RN [facility] Work Phone: 08-31-2011 14:28-0500 Pulse (Heart Rate) 80 /min Kiki Cain RN [facility] Work Phone: Comment on above: Pattern: Regular 08-31-2011 14:28-0500 Respiratory Rate 20 /min Kiki Cain RN [facility] Work Phone: Comment on above: Pattern: Unlabored 08-31-2011 14:28-0500 Weight 84.88 kg Madelin Alberto [facility] Work Phone: 06-14-2010 16:02-0400 BMI (Body Mass Index) 30.3 kg/m2 Kiki Cain RN [facility] Work Phone: 06-14-2010 16:02-0400 Body weight 82.58 kg Kiki Cain RN [facility] Work Phone: 06-14-2010 16:02-0400 BP Diastolic 80 mm[Hg] Kiki Cain RN [facility] Work Phone: Comment on above: Patient Position: Sitting; Cuff Location : Left Arm; Cuff Size: Large 06-14-2010 16:02-0400 BP Systolic 122 mm[Hg] Kiki Cain RN [facility] Work Phone: Comment on above: Patient Position: Sitting; Cuff Location : Left Arm; Cuff Size: Large 06-14-2010 16:02-0400 BSA (Body Surface Area) 1.9 m2 Kiki Cain RN [facility] Work Phone: 06-14-2010 16:02-0400 Height 165.1 cm Kiki Cain RN [facility] Work Phone: 06-14-2010 16:02-0400 Pulse (Heart Rate) 72 /min Kiki Cain RN [facility] Work Phone: Comment on above: Pattern: Regular 06-14-2010 16:02-0400 Respiratory Rate 20 /min Kiki Cain RN [facility] Work Phone: Comment on above: Pattern: Unlabored 06-14-2010 16:02-0400 Weight 82.58 kg Madelin Alberto [facility] Work Phone: 11-30-2009 12:01-0500 BMI (Body Mass Index) 30.46 kg/m2 Kiki Cain RN [facility] Work Phone: 11-30-2009 12:01-0500 Body weight 83.04 kg Kiki Cain RN [facility] Work Phone: 11-30-2009 12:01-0500 BP Diastolic 78 mm[Hg] Kiki Cain RN [facility] Work Phone: Comment on above: Patient Position: Sitting; Cuff Location : Left Arm; Cuff Size: Large 11-30-2009 12:01-0500 BP Systolic 124 mm[Hg] Kiki Cain RN [facility] Work Phone: Comment on above: Patient Position: Sitting; Cuff Location : Left Arm; Cuff Size: Large 11-30-2009 12:01-0500 BSA (Body Surface Area) 1.91 m2 Kiki Cain RN [facility] Work Phone: 11-30-2009 12:01-0500 Height 165.1 cm Kiki Cain RN [facility] Work Phone: 11-30-2009 12:01-0500 Pulse (Heart Rate) 80 /min Kiki Cain RN [facility] Work Phone: Comment on above: Pattern: Regular 11-30-2009 12:01-0500 Respiratory Rate 20 /min Kiki Cain RN [facility] Work Phone: Comment on above: Pattern: Unlabored 11-30-2009 12:01-0500 Weight 83.04 kg Madelin Alberto [facility] Work Phone: 11-23-2009 11:57-0500 BMI (Body Mass Index) 30.46 kg/m2 Paz Huff LPN [facility] Work Phone: 11-23-2009 11:57-0500 Body weight 83.04 kg Paz Huff LPN [facility] Work Phone: 11-23-2009 11:57-0500 BP Diastolic 92 mm[Hg] Paz Huff LPN [facility] Work Phone: Comment on above: Patient Position: Sitting; Cuff Location : Left Arm; Cuff Size: Standard 11-23-2009 11:57-0500 BP Systolic 166 mm[Hg] Paz Huff LPN [facility] Work Phone: Comment on above: Patient Position: Sitting; Cuff Location : Left Arm; Cuff Size: Standard 11-23-2009 11:57-0500 BSA (Body Surface Area) 1.91 m2 Paz Huff LPN [facility] Work Phone: 11-23-2009 11:57-0500 Height 165.1 cm Paz Huff LPN [facility] Work Phone: 11-23-2009 11:57-0500 Pulse (Heart Rate) 88 /min Paz Huff LPN [facility] Work Phone: Comment on above: Pattern: Regular 11-23-2009 11:57-0500 Respiratory Rate 17 /min Paz Huff LPN [facility] Work Phone: Comment on above: Pattern: Unlabored 11-23-2009 11:57-0500 Weight 83.04 kg Madelin Alberto [facility] Work Phone: 07-11-2009 15:32-0400 BMI (Body Mass Index) 30.46 kg/m2 Kiki Cain RN [facility] Work Phone: 07-11-2009 15:32-0400 Body weight 83.04 kg Kiki Cain RN [facility] Work Phone: 07-11-2009 15:32-0400 BP Diastolic 78 mm[Hg] Kiki Cain RN [facility] Work Phone: Comment on above: Patient Position: Sitting; Cuff Location : Left Arm; Cuff Size: Large 07-11-2009 15:32-0400 BP Systolic 118 mm[Hg] Kiki Cain RN [facility] Work Phone: Comment on above: Patient Position: Sitting; Cuff Location : Left Arm; Cuff Size: Large 07-11-2009 15:32-0400 BSA (Body Surface Area) 1.91 m2 Kiki Cain RN [facility] Work Phone: 07-11-2009 15:32-0400 Head Circumference 0 cm Madelin Alberto [facility] Work Phone: 07-11-2009 15:32-0400 Head Occipital-frontal circumference 0 cm Kiki Cain RN [facility]; [facility] Work Phone: 07-11-2009 15:32-0400 Height 165.1 cm Kiki Cain RN [facility] Work Phone: 07-11-2009 15:32-0400 Pulse (Heart Rate) 84 /min Kiki Cain RN [facility] Work Phone: Comment on above: Pattern: Regular 07-11-2009 15:32-0400 Respiratory Rate 20 /min Kiki Cain RN [facility] Work Phone: Comment on above: Pattern: Unlabored 07-11-2009 15:32-0400 Weight 83.04 kg Madelin Alberto [facility] Work Phone: 02-14-2009 16:05-0400 BMI (Body Mass Index) 31.83 kg/m2 Kiki Cain RN [facility] Work Phone: 02-14-2009 16:05-0400 Body weight 86.75 kg Kiki Cain RN [facility] Work Phone: 02-14-2009 16:05-0400 BP Diastolic 78 mm[Hg] Kiki Cain RN [facility] Work Phone: Comment on above: Patient Position: Sitting; Cuff Location : Left Arm; Cuff Size: Large 02-14-2009 16:05-0400 BP Systolic 124 mm[Hg] Kiki Cain RN [facility] Work Phone: Comment on above: Patient Position: Sitting; Cuff Location : Left Arm; Cuff Size: Large 02-14-2009 16:05-0400 BSA (Body Surface Area) 1.94 m2 Kiki Cain RN [facility] Work Phone: 02-14-2009 16:05-0400 Head Circumference 0 cm Madelin Alberto [facility] Work Phone: 02-14-2009 16:05-0400 Head Occipital-frontal circumference 0 cm Kiki Cain RN [facility]; [facility] Work Phone: 02-14-2009 16:05-0400 Height 165.1 cm Kiki Cain RN [facility] Work Phone: 02-14-2009 16:05-0400 Pulse (Heart Rate) 72 /min Kiki Cain RN [facility] Work Phone: Comment on above: Pattern: Regular 02-14-2009 16:05-0400 Respiratory Rate 20 /min Kiki Cain RN [facility] Work Phone: Comment on above: Pattern: Unlabored 02-14-2009 16:05-0400 Weight 86.75 kg Madelin Alberto [facility] Work Phone: 05-27-2008 15:44-0400 BMI (Body Mass Index) 30.79 kg/m2 Kiki Cain RN [facility] Work Phone: 05-27-2008 15:44-0400 Body weight 83.92 kg Kiki Cain RN [facility] Work Phone: 05-27-2008 15:44-0400 BP Diastolic 80 mm[Hg] Kiki Cain RN [facility] Work Phone: Comment on above: Patient Position: Sitting; Cuff Location : Left Arm; Cuff Size: Small 05-27-2008 15:44-0400 BP Systolic 142 mm[Hg] Kiki Cain RN [facility] Work Phone: Comment on above: Patient Position: Sitting; Cuff Location : Left Arm; Cuff Size: Small 05-27-2008 15:44-0400 BSA (Body Surface Area) 1.91 m2 Kiki Cain RN [facility] Work Phone: 05-27-2008 15:44-0400 Head Circumference 0 cm Madelin Alberto [facility] Work Phone: 05-27-2008 15:44-0400 Head Occipital-frontal circumference 0 cm Kiki Cain RN [facility]; [facility] Work Phone: 05-27-2008 15:44-0400 Height 165.1 cm Kiki Cain RN [facility] Work Phone: 05-27-2008 15:44-0400 Pulse (Heart Rate) 72 /min Kiki Cain RN [facility] Work Phone: Comment on above: Pattern: Regular 05-27-2008 15:44-0400 Respiratory Rate 20 /min Kiki Cain RN [facility] Work Phone: Comment on above: Pattern: Unlabored 05-27-2008 15:44-0400 Weight 83.92 kg Madelin Alberto [facility] Work Phone: 05-19-2008 11:35-0400 Body Temperature 97.9 [degF] Jessie Amaro RN [facility] Work Phone: Comment on above: Method: Oral 05-19-2008 11:35-0400 Body weight 0 kg Jessie Amaro RN [facility] Work Phone: 05-19-2008 11:35-0400 BP Diastolic 82 mm[Hg] Jessie Amaro RN [facility] Work Phone: Comment on above: Patient Position: Sitting; Cuff Location : Left Arm; Cuff Size: Standard 05-19-2008 11:35-0400 BP Systolic 128 mm[Hg] Jessie Amaro RN [facility] Work Phone: Comment on above: Patient Position: Sitting; Cuff Location : Left Arm; Cuff Size: Standard 05-19-2008 11:35-0400 Head Circumference 0 cm Madelin Miguel [facility] Work Phone: 05-19-2008 11:35-0400 Head Occipital-frontal circumference 0 cm Jessie Amaro RN [facility]; [facility] Work Phone: 05-19-2008 11:35-0400 Height 0 cm Jessie Amaro RN [facility] Work Phone: 05-19-2008 11:35-0400 Pulse (Heart Rate) 68 /min Jessie Amaro RN [facility] Work Phone: Comment on above: Pattern: Regular 05-19-2008 11:35-0400 Respiratory Rate 18 /min Jessie Amaro RN [facility] Work Phone: Comment on above: Pattern: Unlabored 05-19-2008 11:35-0400 Weight 0 kg Madelin Alberto [facility] Work Phone: 01-07-2008 11:53-0400 BMI (Body Mass Index) 30.79 kg/m2 Kiki Cain RN [facility] Work Phone: 01-07-2008 11:53-0400 Body weight 83.92 kg Kiki Cain RN [facility] Work Phone: 01-07-2008 11:53-0400 BP Diastolic 70 mm[Hg] Kiki Cain RN [facility] Work Phone: Comment on above: Patient Position: Sitting; Cuff Location : Right Arm; Cuff Size: Standard 01-07-2008 11:53-0400 BP Systolic 122 mm[Hg] Kiki Cain RN [facility] Work Phone: Comment on above: Patient Position: Sitting; Cuff Location : Right Arm; Cuff Size: Standard 01-07-2008 11:53-0400 BSA (Body Surface Area) 1.91 m2 Kiki Cain RN [facility] Work Phone: 01-07-2008 11:53-0400 Head Circumference 0 cm Madelin Alberto [facility] Work Phone: 01-07-2008 11:53-0400 Head Occipital-frontal circumference 0 cm Kiki Cain RN [facility]; [facility] Work Phone: 01-07-2008 11:53-0400 Height 165.1 cm Kiki Cain RN [facility] Work Phone: 01-07-2008 11:53-0400 Pulse (Heart Rate) 88 /min Kiki Cain RN [facility] Work Phone: Comment on above: Pattern: Regular 01-07-2008 11:53-0400 Respiratory Rate 20 /min Kiki Cain RN [facility] Work Phone: Comment on above: Pattern: Unlabored 01-07-2008 11:53-0400 Weight 83.92 kg Madelin Alberto [facility] Work Phone: 12-31-2007 12:00-0400 BMI (Body Mass Index) 30.79 kg/m2 Kiki Cain RN [facility] Work Phone: 12-31-2007 12:00-0400 Body Temperature 98.5 [degF] Kiki Cain RN [facility] Work Phone: Comment on above: Method: Oral 12-31-2007 12:00-0400 Body weight 83.92 kg Kiki Cain RN [facility] Work Phone: 12-31-2007 12:00-0400 BP Diastolic 82 mm[Hg] Kiki Cain RN [facility] Work Phone: Comment on above: Patient Position: Sitting; Cuff Location : Left Arm; Cuff Size: Standard 12-31-2007 12:00-0400 BP Systolic 128 mm[Hg] Kiki Cain RN [facility] Work Phone: Comment on above: Patient Position: Sitting; Cuff Location : Left Arm; Cuff Size: Standard 12-31-2007 12:00-0400 BSA (Body Surface Area) 1.91 m2 Kiki Cain RN [facility] Work Phone: 12-31-2007 12:00-0400 Head Circumference 0 cm Madelin Alberto [facility] Work Phone: 12-31-2007 12:00-0400 Head Occipital-frontal circumference 0 cm Kiki Cain RN [facility]; [facility] Work Phone: 12-31-2007 12:00-0400 Height 165.1 cm Kiki Cain RN [facility] Work Phone: 12-31-2007 12:00-0400 Pulse (Heart Rate) 80 /min Kiki Cain RN [facility] Work Phone: Comment on above: Pattern: Regular 12-31-2007 12:00-0400 Respiratory Rate 20 /min Kiki Cain RN [facility] Work Phone: Comment on above: Pattern: Unlabored 12-31-2007 12:00-0400 Weight 83.92 kg Madelin Alberto [facility] Work Phone: 12-16-2007 11:29-0400 BMI (Body Mass Index) 30.8 kg/m2 Kiki Cain RN [facility] Work Phone: 12-16-2007 11:29-0400 Body weight 83.94 kg Kiki Cain RN [facility] Work Phone: 12-16-2007 11:29-0400 BP Diastolic 78 mm[Hg] Kiki Cain RN [facility] Work Phone: Comment on above: Patient Position: Sitting; Cuff Location : Left Arm; Cuff Size: Large 12-16-2007 11:29-0400 BP Systolic 138 mm[Hg] Kiki Cain RN [facility] Work Phone: Comment on above: Patient Position: Sitting; Cuff Location : Left Arm; Cuff Size: Large 12-16-2007 11:29-0400 BSA (Body Surface Area) 1.91 m2 Kiki Cain RN [facility] Work Phone: 12-16-2007 11:29-0400 Head Circumference 0 cm Madelin Miguel [facility] Work Phone: 12-16-2007 11:29-0400 Head Occipital-frontal circumference 0 cm Kiki Cian RN [facility]; [facility] Work Phone: 12-16-2007 11:29-0400 Height 165.1 cm Kiki Cain RN [facility] Work Phone: 12-16-2007 11:29-0400 Pulse (Heart Rate) 72 /min Kiki Cain RN [facility] Work Phone: Comment on above: Pattern: Regular 12-16-2007 11:29-0400 Respiratory Rate 20 /min Kiki Cain RN [facility] Work Phone: Comment on above: Pattern: Unlabored 12-16-2007 11:29-0400 Weight 83.94 kg Madelin Alberto [facility] Work Phone: 08-19-2007 11:34-0500 BMI (Body Mass Index) 30.29 kg/m2 Kiki Cain RN [facility] Work Phone: 08-19-2007 11:34-0500 Body Temperature 102.8 [degF] Kiki Cain RN [facility] Work Phone: Comment on above: Method: Oral 08-19-2007 11:34-0500 Body weight 82.56 kg Kiki Cain RN [facility] Work Phone: 08-19-2007 11:34-0500 BP Diastolic 72 mm[Hg] Kiki Cain RN [facility] Work Phone: Comment on above: Patient Position: Sitting; Cuff Location : Left Arm; Cuff Size: Standard 08-19-2007 11:34-0500 BP Systolic 116 mm[Hg] Kiki Cain RN [facility] Work Phone: Comment on above: Patient Position: Sitting; Cuff Location : Left Arm; Cuff Size: Standard 08-19-2007 11:34-0500 BSA (Body Surface Area) 1.9 m2 Kiki Cain RN [facility] Work Phone: 08-19-2007 11:34-0500 Head Circumference 0 cm Madelin Alberto [facility] Work Phone: 08-19-2007 11:34-0500 Head Occipital-frontal circumference 0 cm Kiki Cain RN [facility]; [facility] Work Phone: 08-19-2007 11:34-0500 Height 165.1 cm Kiki Cain RN [facility] Work Phone: 08-19-2007 11:34-0500 Pulse (Heart Rate) 80 /min Kiki Cain RN [facility] Work Phone: Comment on above: Pattern: Regular 08-19-2007 11:34-0500 Respiratory Rate 20 /min Kiki Cain RN [facility] Work Phone: Comment on above: Pattern: Unlabored 08-19-2007 11:34-0500 Weight 82.56 kg Madelin Alberto [facility] Work Phone: 02-19-2007 14:21-0400 BMI (Body Mass Index) 30.29 kg/m2 Jessie Amaro RN [facility] Work Phone: 02-19-2007 14:21-0400 Body Temperature 98.5 [degF] Jessie Amaro RN [facility] Work Phone: Comment on above: Method: Oral 02-19-2007 14:21-0400 Body weight 82.56 kg Jessie Amaro RN [facility] Work Phone: 02-19-2007 14:21-0400 BP Diastolic 80 mm[Hg] Jessie Amaro RN [facility] Work Phone: Comment on above: Patient Position: Sitting; Cuff Location : Left Arm; Cuff Size: Standard 02-19-2007 14:21-0400 BP Systolic 120 mm[Hg] Jessie Amaro RN [facility] Work Phone: Comment on above: Patient Position: Sitting; Cuff Location : Left Arm; Cuff Size: Standard 02-19-2007 14:21-0400 BSA (Body Surface Area) 1.9 m2 Jessie Amaro RN [facility] Work Phone: 02-19-2007 14:21-0400 Head Circumference 0 cm Madelin Gomezon [facility] Work Phone: 02-19-2007 14:21-0400 Head Occipital-frontal circumference 0 cm Jessie Amaro RN [facility]; [facility] Work Phone: 02-19-2007 14:21-0400 Height 165.1 cm Jessie Amaro RN [facility] Work Phone: 02-19-2007 14:21-0400 Pulse (Heart Rate) 80 /min Jessie Amaro RN [facility] Work Phone: Comment on above: Pattern: Regular 02-19-2007 14:21-0400 Respiratory Rate 16 /min Jessie Amaro RN [facility] Work Phone: Comment on above: Pattern: Unlabored 02-19-2007 14:21-0400 Weight 82.56 kg Madelin Alberto [facility] Work Phone: Encounters Encounter Date Encounter Type Care Provider Facility Start: 06-14-2025 End: 06-14-2025 Patient encounter procedure Bernarda ESPANA -[facility] Work Phone: Start: 06-14-2025 End: 06-14-[address] Madelin Alberto DO Work Phone: -[facility] Start: 03-22-2025 End: 03-22-[address] Madelin Alberto DO Work Phone: -Cat Scan [facility] Start: 03-22-2025 End: 03-22-[address] Lai Mancia MD -Cat Scan [facility] Work Phone: Start: 03-22-2025 End: 03-22-[facility] Start: 03-02-2025 End: 03-02-[address] Madelin Alberto DO Work Phone: [facility] Work Phone: Start: 03-02-2025 End: 03-02-[address] Lai Mancia MD -Laboratory Work Phone: Start: 03-02-2025 End: 03-02-2025 ambulatory [facility] Facility:[facility] Start: 02-11-2025 End: 02-11-[address] Jf Perla MD -Medical Out Work Phone: Start: 02-11-2025 End: 02-11-[address] Madelin Alberto DO Work Phone: [facility] Work Phone: Start: 02-08-2025 End: 02-08-2025 Patient encounter procedure Bernarda Akbar HAM SAWYER-C -[facility] Work Phone: Start: 02-08-2025 End: 02-08-2025 ambulatory Madelin Alberto [place] [place]: 01-22-2025 End: 01-22-[address] Madelin Alberto DO Work Phone: [facility] Work Phone: Start: 01-22-2025 End: 01-22-[address] Madelin Alberto DO -Laboratory Work Phone: Start: 01-22-2025 End: 01-22-2025 ambulatory Madelin Alberto Facility:[facility] Start: 11-09-2024 End: 11-09-2024 Patient encounter procedure Bernarda ORELLANAC -Laboratory, Specimen Work Phone: Start: 11-09-2024 End: 11-09-2024 Patient encounter procedure Bernarda Akbar NP-C -[facility] Work Phone: Start: 11-09-2024 End: 11-09-2024 ambulatory Madelin Alberto [place] [place]: 11-09-2024 End: 11-09-2024 ambulatory Madelin Miguel Facility:[facility] Start: 11-05-2024 ambulatory Madelin Alberto [place]ilit [facility] Start: 07-10-2024 End: 07-10-2024 ambulatory Madelin Alberto Facility:[facility] Start: 07-06-2024 End: 07-06-2024 ambulatory Bernarda Akbar Facility:[facility] Start: 11-28-2023 End: 11-28-[address] Madelin Alberto Work Phone: [facility] Work Phone: Start: 11-28-2023 End: 11-28-[address] Madelin Alberto Work Phone: [facility]-Medical Out Work Phone: Start: 11-14-2023 End: 11-14-[address] Madelin Alberto Work Phone: [facility] Endocr[facility] Work Phone: Start: 10-30-2023 End: 10-30-[address] Madelin Alberto Work Phone: [facility] Work Phone: Start: 10-30-2023 End: 10-30-[address] Madelin Alberto Work Phone: [facility]-Laboratory, Specimen Work Phone: Start: 10-29-2023 End: 10-29-[address] Madelin Alberto Work Phone: [facility] Work Phone: Start: 10-29-2023 End: 10-29-[address] Madelin Alberto Work Phone: [facility]-Laboratory, OP Pav[facility] Start: 10-22-2023 Non-patient / Non-visit Dr. Madelin Alberto Work Phone: [facility] Start: 10-22-2023 End: 10-22-[address] Madelin Alberto Work Phone: [facility] Work Phone: Start: 10-22-2023 End: 10-22-[address] Madelin Alberto Work Phone: [facility]-Cardiovascular Services Work Phone: Start: 09-19-2023 End: 09-19-[address] Madelin Alberto Work Phone: [facility] Work Phone: Start: 09-19-2023 End: 09-19-[address] Madelin Alberto Work Phone: [facility]-Outpatient Bone Densitometry Work Phone: Start: 08-08-2023 End: 08-08-[address] Madelin Alberto Work Phone: [facility] Endocrinology Work Phone: Start: 07-26-2023 End: 07-26-[address] Madelin Alberto Work Phone: [facility]-Cat Scan, [facility] Work Phone: Start: 06-07-2023 End: 06-07-[address] Madelin Alberto Work Phone: [facility] Work Phone: Start: 06-07-2023 End: 06-07-[address] Madelin Alberto [facility] Phone[facility] Start: 04-12-2023 Madelin Patricia n DO Work Phone: [facility] Start: 04-10-2023 End: 04-11-2023 Patient encounter procedure Sarah Sanchez [facility] Start: 04-03-2023 End: 04-04-2023 Office outpatient visit 5 minutes Madelin Alberto DO Work Phone: [facility] Start: 03-18-2023 End: 03-18-[address] Madelin Alberto Work Phone: [facility] Endocrinology Work Phone: Start: 03-13-2023 Madelin Patricia n DO Work Phone: [facility] Start: 03-13-2023 End: 03-13-2023 Office outpatient visit 15 minutes Madelin Alberto DO Work Phone: [facility] Start: 02-26-2023 Non-patient / Non-visit Dr. Madelin Alberto Work Phone: [facility] Start: 02-25-2023 Non-patient / Non-visit Dr. Madelin Alberto Work Phone: [facility] Start: 02-24-2023 Non-patient / Non-visit Dr. Madelin Alberto Work Phone: [facility] Start: 02-23-2023 Non-patient / Non-visit Dr. Madelin Alberto Work Phone: [facility] Start: 02-23-2023 End: 02-26-2023 Evaluation and management of inpatient Dr. Madelin Alberto Work Phone: [facility]-Medical Surgical 3 Start: 01-23-2023 ambulatory Madelin Alberto DO [facility] Start: 01-23-2023 End: 01-23-2023 Office outpatient visit 25 minutes Madelin Alberto DO Work Phone: [facility] Start: 01-23-2023 Madelin Gomezo n DO Work Phone: [facility] Start: 10-02-2022 End: 10-02-2022 Madelin Gomezon DO Work Phone: [facility] Start: 07-25-2022 Madelin Gomezo n DO Work Phone: [facility] Start: 07-25-2022 End: 07-25-2022 Office outpatient visit 25 minutes Madelin Alberto DO Work Phone: [facility] Start: 06-01-2022 End: 06-01-[address] Madelin Alberto Work Phone: [facility] Work Phone: Start: 06-01-2022 End: 06-01-[address] Madelin Alberto Work Phone: [facility]-Laboratory Start: 04-26-2022 End: 04-26-[address] Madelin Alberto Work Phone: [facility] Endocr[facility]ology Start: 02-22-2022 End: 02-22-[address] Madelin Alberto Work Phone: [facility] Endocrinology Start: 01-10-2022 End: 01-10-2022 Madelin Miguel DO Work Phone: [facility] Start: 01-08-2022 End: 01-08-2022 Madelin Miguel DO Work Phone: [facility] Start: 01-08-2022 End: 01-08-2022 Office outpatient visit 25 minutes Madelin Miguel DO Work Phone: [facility] Start: 05-12-2021 End: 05-15-2021 Patient encounter procedure Madelin Miguel DO Work Phone: [facility]; [facility] Work Phone: Start: 05-12-2021 End: 05-15-2021 Periodic preventive med est patient 65yrs& older Madelin Miguel DO Work Phone: [facility] Start: 03-20-2021 End: 03-20-2021 Office outpatient visit 25 minutes Madelin Miguel DO Work Phone: [facility] Start: 03-20-2021 Review Madelin Fearo n DO Work Phone: [facility] Start: 03-06-2021 End: 03-06-2021 Annotation/Addendum Madelin Miguel DO Work Phone: [facility] Start: 03-06-2021 End: 03-06-2021 Madelin Miguel DO Work Phone: [facility] Start: 08-24-2020 End: 08-24-2020 Office outpatient visit 25 minutes Madelin Alberto [facility] Start: 04-28-2020 End: 04-28-2020 Office outpatient visit 25 minutes Madelin Miguel [facility] Start: 04-28-2020 Review Madelin Alberto [facility] Start: 02-12-2020 End: 02-12-2020 Office outpatient visit 10 minutes Madelin Alberto [facility] Start: 01-21-2020 End: 01-21-2020 Office outpatient visit 25 minutes Madelin Alberto [facility] Start: 01-13-2020 End: 01-13-2020 Lab Order Madelin Alberto [facility] Start: 01-13-2020 End: 01-13-2020 Madelin Miguel DO Work Phone: [facility] Start: 05-06-2019 End: 05-06-2019 Office outpatient visit 25 minutes Madelin Alberto [facility] Start: 02-02-2019 End: 02-02-2019 Phone Encounter Madelin Alberto [facility] Start: 02-02-2019 End: 02-02-2019 Madelin Alberto DO Work Phone: [facility] Start: 01-28-2019 End: 01-28-2019 Office outpatient visit 25 minutes Madelin Alberto [facility] Start: 08-20-2018 End: 08-20-2018 Office outpatient visit 15 minutes Madelin Alberto [facility] Start: 07-02-2018 End: 07-03-2018 Office outpatient visit 25 minutes Madelin Alberto [facility] Start: 04-30-2018 End: 04-30-2018 Office outpatient visit 15 minutes Madelin Alberto [facility] Start: 03-26-2018 End: 03-27-2018 Office outpatient visit 25 minutes Madelin Alberto [facility] Start: 03-21-2018 End: 03-21-2018 Office outpatient visit 15 minutes Madelin Alberto [facility] Start: 03-05-2018 End: 03-06-2018 Office outpatient visit 25 minutes Madelin Alberto [facility] Start: 01-09-2018 End: 01-09-2018 Office outpatient visit 10 minutes Madelin Alberto [facility] Start: 12-02-2017 End: 12-02-2017 Office outpatient visit 25 minutes Madelin Alberto [facility] Start: 11-05-2017 End: 11-05-2017 Office outpatient visit 15 minutes Madelin Alberto [facility] Start: 09-20-2017 End: 09-20-2017 Office outpatient visit 15 minutes Madelin Alberto [facility] Start: 08-07-2017 End: 08-07-2017 Office outpatient visit 10 minutes Madelinusha Gomezon [facility] Start: 07-31-2017 End: 07-31-2017 Office outpatient visit 25 minutes Madelin Alberto [facility] Start: 04-22-2017 End: 04-22-2017 Office outpatient visit 25 minutes Madelin Alberto [facility] Start: 08-17-2016 End: 08-17-2016 Annotation/Addendum Madelin Miguel [facility] Start: 08-17-2016 End: 08-17-2016 Madelin Alberto DO Work Phone: [facility] Start: 08-17-2016 End: 08-17-2016 Office outpatient visit 15 minutes Madelin Miguel [facility] Start: 09-15-2015 End: 09-15-2015 Office outpatient visit 15 minutes Madelin Miguel [facility] Medicine Start: 08-03-2015 End: 08-03-2015 Office outpatient visit 15 minutes Madelin Miguel [facility] Medicine Start: 07-01-2015 End: 07-01-2015 Office outpatient visit 25 minutes Madelin Miguel [facility] Start: 02-16-2015 End: 02-16-2015 Office outpatient visit 25 minutes Madelin Alberto [facility] Start: 01-27-2014 End: 01-27-2014 Patient encounter Madelin Alberto [facility] Start: 01-27-2014 End: 01-27-2014 Madelin Alberto DO Work Phone: [facility] Start: 12-01-2012 End: 12-01-2012 Office outpatient visit 15 minutes Madelin Miguel [facility] Start: 08-06-2012 End: 08-06-2012 Patient encounter Madelin Alberto [facility] Start: 08-06-2012 End: 08-06-2012 Madelin Alberto DO Work Phone: [facility] Start: 06-30-2012 End: 06-30-2012 Patient encounter Madelin Alberto [facility] Start: 06-30-2012 End: 06-30-2012 Madelin Alberto DO Work Phone: [facility] Start: 02-01-2012 End: 02-01-2012 Patient encounter Madelin Alberto [facility] Start: 02-01-2012 End: 02-01-2012 Madelin Alberto DO Work Phone: [facility] Start: 08-31-2011 End: 08-31-2011 Annotation/Addendum Madelin Alberto [facility] Start: 08-31-2011 End: 08-31-2011 Madelin Alberto DO Work Phone: [facility] Start: 08-31-2011 End: 08-31-2011 Office outpatient visit 15 minutes Madelin Alberto [facility] Start: 06-14-2010 End: 06-14-2010 Patient encounter Madelin Alberto [facility] Start: 06-14-2010 End: 06-14-2010 Madelin Alberto DO Work Phone: [facility] Start: 11-30-2009 End: 11-30-2009 Patient encounter Madelin Alberto [facility] Start: 11-30-2009 End: 11-30-2009 Madelin Alberto DO Work Phone: [facility] Start: 11-23-2009 End: 11-23-2009 Office outpatient visit 10 minutes Madelin Alberto [facility] Start: 07-11-2009 End: 07-11-2009 Patient encounter Madelin Alberto [facility] Start: 07-11-2009 End: 07-11-2009 Madelin Alberto DO Work Phone: [facility] Start: 06-20-2009 End: 06-20-2009 Historical Summary Madelin Alberto [facility] Start: 06-20-2009 End: 06-20-2009 Madelin Alberto DO Work Phone: [facility] Start: 02-14-2009 End: 02-14-2009 Patient encounter Madelin Alberto [facility] Start: 02-14-2009 End: 02-14-2009 Madelin Alberto DO Work Phone: [facility] Start: 05-27-2008 End: 05-27-2008 Office outpatient visit 25 minutes Madelin [facility]to [facility] Start: 05-19-2008 End: 05-19-2008 Office outpatient visit 25 minutes Madelin [facility] Start: 01-07-2008 End: 01-07-2008 Patient encounter [facility] Start: 01-07-2008 End: 01-07-2008 Madelin Alberto DO Work Phone: [facility] Start: 12-31-2007 End: 12-31-2007 Patient encounter Madelin Alberto [facility] Start: 12-31-2007 End: 12-31-2007 Madelin Alberto DO Work Phone: [facility] Start: 12-16-2007 End: 12-16-2007 Office outpatient visit 40 minutes Madelin Gomezon [facility] Start: 08-19-2007 End: 08-19-2007 Office outpatient visit 40 minutes Madelin Alberto [facility] Start: 02-25-2007 End: 02-25-2007 Historical Summary Madelin [facility]to [facility] Start: 02-25-2007 End: 02-25-2007 Madelin Alberto DO Work Phone: [facility] Start: 02-19-2007 End: 02-19-2007 Office outpatient new 60 minutes Madelin Alberto [facility] Start: 02-19-2007 End: 02-19-2007 Historical Summary Madelin Alberto [facility] Start: 02-19-2007 End: 02-19-2007 Madelin Alberto DO Work Phone: [facility] End: 09-20-2017 Patient encounter procedure Kiki Cain RN [facility]; [facility] Work Phone: Patient encounter procedure Tracy Walkeryissel [facility]; [facility] Work Phone: Patient encounter procedure Stefaniaevelineshaun Jovanny FOOD QUALITY TECHNICIAN [facility]; [facility] Work Phone: Patient encounter procedure Wilfrid Delong LPN [facility]; [facility] Work Phone: Procedures Date Procedure Procedure Detail Performing Clinician Start: 03-22-2025 CT of chest without contrast Dr. Madelin Alberto DO Work Phone: Start: 01-22-[address] Madelin Alberto DO Work Phone: Comment on above: Test Ordered: [id number] Apolipoprotein BApo lipoprotein B 79 mg/dL Reference Range: <90 Desirable < 90 Borderline High 90 - 99 High 100 - 130 Very High >130 ASCVD RISK THERAPEUTIC TARGET CATEGORY APO B (mg/dL) Very High Risk <80 (if extreme risk <70) High Risk <90 Moderate Risk <90Performed at: [employer] [address] [id number] Director: Severiano Kuo MD, Phone: [phone] at: [employer] [address] [id number] Director: Stu Reyes PhD, Phone: [phone] Start: 01-22-2025 Urine microalbumin/creatinine ratio measurement Dr. Madelin Alberto DO Work Phone: Comment on above: Previous reported result: 850.7 mg/g CRE Edited by: JACKELIN on 03/19/25:0804 AMENDED REPORT 03/19/25 0804 MALB:CREAT previously reported as: 850.7 mg/g CRE Start: 01-22-2025 Vitamin D, 25-hydroxy measurement Dr. Madelin Alberot DO Work Phone: Comment on above: Vitamin D StatusDeficiency: <20 ng/mL (5 0nmol/L)Insufficiency: 20-30 ng/mL (50-75 nmol/L)Sufficiency: 30-100 ng/mL (75-250 nmol/L)Toxicity: >100 ng/mL (>250 nmol/L) Start: 11-09-2024 Measurement of renal function Dr. Madelin Alberto DO Work Phone: Comment on above: GFR Calc Start: 11-09-[address] Madelin Alberto DO Work Phone: Start: 11-09-2024 Urine microalbumin/creatinine ratio measurement Dr. Madelin Alberto DO Work Phone: Start: 11-09-2024 Vitamin D, 25-hydroxy measurement Dr. Madelin Alberto DO Work Phone: Comment on above: Vitamin D 25(OH) Status Range Deficiency <20 ng/mL (50nmol/L) Insufficiency 20 - 30 ng/mL (50 - 75 nmol/L) Sufficiency 30 - 100 ng/mL (75 - 250 nmol/L) Toxicity >100 ng/mL (>250 nmol/L) Start: 09-19-2023 Dual energy X-ray absorptiometry Dr. Madelin Alberto Work Phone: Start: 09-19-[address] Madelin Alberto Work Phone: Start: 07-26-2023 CT of chest without contrast Dr. Madelin Alberto Work Phone: Start: 06-07-2023 Plain chest X-ray Dr. Madelin Alberto Work Phone: Start: 06-07-2023 End: 06-07-2023 Procedure Note: See Note; NOTES: [facility] Services [address] [place] [address] Chest PA and Lateral MR#: [id number] Acct: [id number] Name: ERIN LAWRENCE Rep #: [id number] : 1955 F 68 From: Sergio jay MD PCP: Dr. Madelin Alberto, DO Status: REG CLI Study: Chest PA and Lateral Date of Exam: 06/07/23 Exam# [id number] Ordering Dr: Lai Mancia MD STUDY: X-RAY CHEST REASON FOR EXAM: Female, 68 years old. PNEUMONIA, HYPOXEMIA, DYSPNEA TECHNIQUE: Frontal and lateral views of the chest. COMPARISON: 02/23/2023. FINDINGS: Minimal irregularity of the lung bases, most suggestive of mild scarring. No definite infiltrates. No effusions. Normal size heart. Normal mediastinum and selvin. Normal visualized pulmonary arteries. There is atherosclerotic tortuosity of the aortic arch and descending thoracic aorta. Normal visualized thoracic spine. Normal visualized ribs, clavicles, and shoulders. There is no demonstrated abnormality of the visualized soft tissue structures of the upper abdomen. RAD/Chest PA and Lateral IMPRESSION: Probable mild scarring in the lung bases. No definite acute chest disease. Electronically Signed: Sergio Hermosillo MD at 21:32 EDT , CC: Dr. Madelin Alberto DO; Dr. Lai Mancia MD Rental Salesperson: Signed Lai Mancia Work Phone: Start: 03-18-2023 End: 03-18-2023 Procedure Note: See Note; NOTES: [facility] [address] [facility] [place] [address] OFFICE VISIT Date of Service: 03/18/23 MR#: [id number] Acct: [id number] Name: ERIN LAWRENCE Rep #: [id number] : 1955 Provider: JOVI cueto Age/Sex: 68/F [place] [facility] [place]: Signed Intake Vital Signs 09/27/22 14:09 02/23/23 12:58 03/18/23 13:50 Height 5 ft 5 in 5 ft 5 in 5 ft 5 in Weight: 183 lb 2 oz BMI 30.4 BP 170/80 H Blood Pressure Location Rt brachial Position Sitting Respiration 16 Pulse 76 Pulse Source Monitor Temp 98.2 F Temp Source Temporal Pulse Oximetry (%) 92 Oxygen Delivery Method room air Intake Visit Reasons: 3 M FU Chief Complaint: f/u diabetes Otolaryngology Surgeon Required: No Accompanied by: Self Is patient in pain?: No Allergies glimepiride [From Amaryl] Allergy (Mild, Verified 03/18/23 13:53) rash lisinopril Allergy (Mild, Verified 03/18/23 13:53) rash losartan Allergy (Mild, Verified 03/18/23 13:53) rash Nurse's Note: Room 3 [facility] Medical History Asthma Benign hypertension Cataracts, bilateral Diabetes High cholesterol High triglycerides Mixed hyperlipidemia Overweight (BMI 25.0-29.9) Vitamin deficiency Surgical History Hx of appendectomy Family History Sister Arthritis Colon cancer, Onset Age: 54 Mother Colon cancer, Onset Age: 71 Diabetes Myocardial infarction, Onset Age: 71 Aunt Uterine cancer Social History household members: none Smoking Status: Never smoker alcohol intake: never substance use type: does not use HPI HPI Chief Complaint: f/u diabetes Details: ERIN LAWRENCE, is a 68 F who presents to the office today for evaluation and management of diabetes. A1C today is 8.1%, increased from 09/27/23 at 7.5%. She was recently admitted to the hospital with pneumonia, she was sent home on supplemental O2, she is not wearing it during her appt today. She complains of persistent fatigue and increased shortness of breath with exertion. She does have f/u appt scheduled with PCP concerning the matter in a couple weeks. Denies knowledge of being on steroids d/t illness. She notices blood sugars have been increased since symptoms began. Currently taking metformin 1 gm BID with food and N 17 u AM and 14 u PM. She denies any instances of lows. Reports PCP appreciated cardiac murmur on exam, she was ordered an echo at that time; however she states that she has not had test done yet d/t being admitted with pneumonia. BP elevated today at 170/80, currently taking amlodipine 10 mg once daily, and HCTZ 12.5 mg once daily. Reports compliance with medication regimen. 09/28/22 vitamin D 22.1, total cholesterol 147, LDL 71, TSH 2.08- currently taking levothyroxine 50 mcg once daily. She is confused on the rules of taking thyroid replacement hormone. Reports she is taking vitamin D3 5,000 iu once daily, she does miss doses routinely as she is unsure how to take because of levothyroxine. Labs are up to date. Exam Const General: cooperative, healthy appearing, comfortable and no acute distress Nutritional Appearance: obese Orientation: alert, awake and oriented x3 HENMT Head: normal to inspection Ears: hearing grossly normal bilaterally Nose: external nose normal Face and sinus: normal facial exam Eyes General: appearance normal, both eyes and all related structures Alignment and Position: alignment normal Sclera: sclerae normal Chest Chest palpation inspection: normal inspection of the chest Resp Effort Inspection: normal respiratory effort, able to speak in complete sentences, symmetric chest movement, normal respiratory pattern, no audible wheezes and no cough Auscultation: Bilateral: Clear to Auscultation Cardio Rate: regular rate Rhythm: regular rhythm Heart Sounds: S1 normal and S2 normal Bruits: no carotid bruits GI Inspection: normal to inspection and obesity Musc Cervical Spine: normal cervical lordosis Thoracic/Lumbar Spine: thoracic and lumbar spine normal to inspection Skin General: no rashes or lesions noted Lesions: no lesions Rashes: no rashes Trauma: no lacerations or abrasions Wounds: no wounds Neuro General: patient alert, patient awake and patient oriented x3 Cognition: normal cognition Speech: speech normal Gait: normal gait Extrem General: normal to inspection and no pedal edema Psych Appearance: grossly normal Mental Status: mental status grossly normal Mood: congruent mood Affect: normal affect Speech and Movement: speech and movement normal Attitude: cooperative Thought Process: normal Thought Content: normal Judgment: judgment good Results POC A1C POC A1C 8.1 % Last Edit by Sushma Horton LPN on 03/18/23 14:02 Discussed at visit. Coding Level of Care Code Off vis,est,level 4 Diagnoses Diabetes E11.65 Diabetes mellitus type: type 2 Diabetes mellitus long-term insulin use: without senior manager mergers & acquisitions use Diabetes mellitus complication status: with hyperglycemia Benign hypertension I10 Cardiac murmur R01.1 Vitamin D deficiency E55.9 Obesity (BMI 30.0-34.9) E66.9 Hypothyroid E03.9 Assessment and Plan Assessment and Plan (1) Diabetes: Status: Chronic Qualifiers: Diabetes mellitus type: type 2 Diabetes mellitus long-term insulin use: without long-term use Diabetes mellitus complication status: with hyperglycemia Qualified Code(s): E11.65 - Type 2 diabetes mellitus with hyperglycemia Plan: Chronic- uncontrolled. I reviewed with the patient the risk of developing and worsening of diabetes complications including retinopathy, neuropathy, nephropathy, heart attack, stroke, ampuation, and sudden . Diabetes education provided. A1C not at goal: <7.5%. Stop N. Start 70/30 15 u prior to breakfast and supper. Continue metformin 1 gm BID with food. Notify office of lows. Follow up in 3 months. (2) Benign hypertension: Status: Chronic Plan: Chronic- not optimally controlled. D/t recent acute illness and continued SOB, will not puruse any medication changes today. Continue amlodipine 10 mg once daily. Continue HCTZ 12.5 mg once daily. Encouraged her to monitor at home, if elevation persists notify PCP. Will continue to monitor. (3) Cardiac murmur: Status: Chronic Plan: Chronic- stable. Encouraged her to schedule cardiac echo as ordered by PCP RUDDY. Discussed red flag symptoms requiring urgent medical attention. (4) Vitamin D deficiency: Status: Chronic Plan: Chronic-stability unknown. Continue vitamin D3 5,000 iu once daily. Discussed importance of sufficient vitamin D levels. (5) Obesity (BMI 30.0-34.9): Status: Chronic Plan: Chronic- stable. Encouraged a diet that contains high quality carbohydrates rich in fiber. (6) Hypothyroid: Status: Chronic Plan: Chronic- stable. Reviewed rules of taking thyroid replacement hormone: Take levothyroxine on an empty stomach with water at least four hours after eating. Then wait 30-60 minutes before consuming any other food or beverage, especially coffee. Separate levothyroxine from vitamins by at least 4 hours. Stop taking any biotin supplement 4 days prior to having labs drawn. I have spent [32] minutes today reviewing labs, records and history. Time includes coordinating care, interpretation of tests, discussion with patient's other health care providers via telephone. This also includes time I spent with the patient for exam, treatment plan and education as well as documenting clinical information. Orders: Orders POC A1C Today E11.9 - Type 2 diabetes mellitus without complications Medications: New metformin 1,000 mg (2 x 500 mg) PO BID 360 tabs 1RF E11.9 - Type 2 diabetes mellitus without complications insulin NPH and regular human 100 unit/mL (70-30) (Novolin 70/30 U-100 Insulin) 15 units (0.15 mL) subcut BID 10 mL 5RF E11.65 - Type 2 diabetes mellitus with hyperglycemia Plan Details Follow Up: 3 Months 03/18/23 1516 <Electronically signed by Bernarda ESPNAA> Date Bernarda ESPANA Cosigner Signature: Date (if applicable) CC: DO Madelin Perales DO Work Phone: Start: 02-25-2023 Plain chest X-ray Dr. Madelin Alberto Work Phone: Start: 02-24-2023 Plain chest X-ray Dr. Madelin Alberto Work Phone: Start: 02-23-[address] Madelin Alberto Work Phone: Start: 02-23-2023 Streptococcus pneumoniae Antigen (M Dr. Madelin Alberto Work Phone: Start: 02-23-[address] Madelin Alberto Work Phone: Start: 02-23-2023 End: 02-23-2023 Procedure Note: See Note; NOTES: [facility] Medical Records Department [address] [place] [id number] Emergency Department Summary 02/23/23 MR#: [id number] Acct: [id number] Name: ERIN LAWRENCE Rep #: [id number] : 1955 68 From: Brando Weiss MD PCP: Dr. Madelin Alberto DO Status:REG ER Location: ED HPI History of Present Illness Chief Complaint: Cough Detail of Chief Complaint: Productive cough, fatigue, dyspnea on exertion Informant: patient Onset/Context/Timing Onset: Days (Onset Saturday, February 20) Context: Sudden Onset Quality: Cough productive of colored sputum Location: Respiratory Current Severity: Mild (At rest on oxygen) Maximum Severity: Severe Worsened by: Dyspnea on exertion Relieved by: Nothing Associated Symptoms Associated Symptoms: Productive cough, subjective fever Narrative Narrative: Patient is a 68-year-old retired woman who has had no ill contacts and presents with fatigue, dyspnea, dyspnea on exertion, productive cough of green sputum. She denies smoking. She denies exposure to any environmental fumes etc. She denies history of PE or DVT. She has no risk factors for PE or DVT. She denies leg pain, swelling discoloration. She does endorse rhinorrhea. She feels this is due to allergies. She denies headache, visual, ocular auditory symptoms. She denies GI symptoms. She denies urologic symptoms. Prior similar symptoms: No Recent Illness/Hospitalization: No PFSH [facility] Medical History Asthma Benign hypertension Cataracts, bilateral Diabetes High cholesterol High triglycerides Mixed hyperlipidemia Overweight (BMI 25.0-29.9) Vitamin deficiency Home Medications cholecalciferol (vitamin D3) 125 mcg (5,000 unit) capsule 125 mcg PO DAILY 02/14/21 [History Last Taken Unknown] levothyroxine 50 mcg capsule 50 mcg PO DAILY 02/14/21 [History Last Taken Unknown] rosuvastatin 10 mg tablet 10 mg PO QHS 02/14/21 [History Last Taken Unknown] venlafaxine 75 mg tablet 75 mg PO DAILY 02/14/21 [History Last Taken Unknown] amlodipine 10 mg tablet 10 mg PO DAILY #90 tabs 02/22/22 [Rx Last Taken Unknown] metformin 500 mg tablet 1,000 mg PO BID #360 tabs 02/22/22 [Rx Last Taken Unknown] hydrochlorothiazide 12.5 mg tablet 12.5 mg PO DAILY #90 tabs 04/26/22 [Rx Last Taken Unknown] insulin syringe-needle U-100 0.3 mL 31 gauge x 5/16 (BD Insulin Syringe Ultra-Fine) #100 ea 05/21/22 [Rx Last Taken Unknown] Allergy/AdvReac Type Severity Reaction Status Date / Time glimepiride [From Amaryl] Allergy Mild rash Verified 09/27/22 14:18 lisinopril Allergy Mild rash Verified 09/27/22 14:18 losartan Allergy Mild rash Verified 09/27/22 14:18 Family History Sister Arthritis Colon cancer, Onset Age: 54 Mother Colon cancer, Onset Age: 71 Diabetes Myocardial infarction, Onset Age: 71 Aunt Uterine cancer Surgical History Hx of appendectomy Social History (Updated 02/23/23 @ 10:[address] Brando Weiss MD) household members: none Smoking Status: Never smoker alcohol intake: never substance use type: does not use ROS ROS ED Constitutional Constitutional ED: Reports fever(s) and subjective; Denies chills, sweats or weight loss Eyes Eyes: Denies blurry vision, change in vision or diplopia ENT ENT ED: Reports rhinorrhea; Denies ear pain or sore throat Cardiovascular Cardiovascular: Denies chest pain, orthopnea, palpitations, paroxysmal nocturnal dyspnea or racing heartbeat Respiratory/Chest Respiratory/Chest: Reports cough, dyspnea, dyspnea on exertion and sputum; Denies orthopnea or paroxysmal nocturnal dyspnea Gastrointestinal Gastrointestinal: Denies abdominal pain, constipation, diarrhea, melena, nausea or vomiting Genitourinary Genitourinary ED: Denies dysuria, hematuria or urinary frequency Musculoskeletal Musculoskeletal: Denies arthralgias or myalgias Integumentary Denies rash Neurologic Neurologic: Reports weakness; Denies headache(s) or paresthesias Psychiatric Psychiatric: Denies anxiety or depression Endocrine Endocrinology: Denies cold intolerance or heat intolerance Hematologic/Lymphatic Hematologic/Lymphatic: Reports systems reviewed and no addt'l complaints, except as documented EXAM Physical Exam Narrative Exam Narrative: Patient is breathing much more rapidly than 20 times a minute. Patient was noted to be hypoxic at triage with a pulse ox of 86% with conversation. Without conversational pulse ox of 88%. Const Vital Signs: 02/23/23 09:32 02/23/23 09:36 02/23/23 09:36 Temperature 99.9 F H 99.8 F H Temperature Source Temporal Temporal Pulse Rate 101 H 98 Respiratory Rate 18 20 H 18 Respiratory Effort Respiratory Depth Respiratory Pattern Blood Pressure 157/73 H 150/74 H Blood Pressure Mean 101 99 Pulse Ox 91 88 91 Oxygen Delivery Method Room Air Room Air Nasal Cannula Oxygen Flow Rate (L/min) 2 02/23/23 09:48 02/23/23 10:08 02/23/23 10:15 Temperature Temperature Source Pulse Rate 100 103 H Respiratory Rate 98 H 20 H Respiratory Effort Normal Respiratory Depth Normal Respiratory Pattern Normal Blood Pressure Blood Pressure Mean Pulse Ox Oxygen Delivery Method Room Air Oxygen Flow Rate (L/min) 02/23/23 10:15 02/23/23 10:36 02/23/23 11:20 Temperature 97.8 F Temperature Source Temporal Pulse Rate 78 Respiratory Rate 16 Respiratory Effort Respiratory Depth Respiratory Pattern Blood Pressure 140/78 H Blood Pressure Mean 98 Pulse Ox 95 93 85 Oxygen Delivery Method Nasal Cannula Nasal Cannula Nasal Cannula Oxygen Flow Rate (L/min) 2 2 2 Positive well nourished and well developed General Appearance ED: well developed; Negative for cyanotic, diaphoretic, NAD or pallor HEENT Reports moist mucous membranes HEENT Narrative: Head is atraumatic normocephalic. Ears normal. Nares patent. Posterior pharynx out erythema or exudate. Uvula midline. Eyes PERRL and EOMs intact bilaterally Eyes Narrative: Trachea is midline. There is no inspiratory extra or. General Eye ED: Negative for pale conjunctiva or scleral icterus Neck no lymphadenopathy, supple and no JVD Chest Wall inspection of chest normal Resp No normal respiratory effort and No clear to auscultation bilaterally Effort and Inspection: other There is minimal use of accessory muscles. ; Negative for retractions or pain with movement Auscultation: rales bilateral (Left greater than right) lower and wheezes expiratory wheezes, scattered wheezes and throughout Cardio regular rate, regular rhythm, S1 normal heart sound, S2 normal heart sound and no murmurs GI normal to inspection, nondistended, normoactive bowel sounds, non-tender, non-distended and no masses; Negative for hepatosplenomegaly Auscultation: normoactive bowel sounds Palpation: soft Back/Spine no CVA tenderness Thoracic Spine / Upper Back: Negative for thoracic spinal tenderness Lumbar Spine / Lower Back: Negative for lumbar spinal tenderness Extremity normal to inspection Extremity Narrative: There is no asymmetry, swelling, discoloration, leg vein distention, palpable cords or tenderness along the distribution of the deep venous system. General Extremety ED: Negative for edema or tenderness General Extremity: Negative for edema Neuro oriented x3, CN's II-XII intact bilaterally and no sensory deficits noted Sensorium / Orientation: alert Skin no rashes or lesions noted, no wounds and skin turgor normal General Skin Exam: Negative for jaundice or pallor MDM MDM MDM Narrative Medical decision making narrative: Clinically patient has right lower lobe pneumonia with egophony. This may represent bilateral lower lobe pneumonia. Since patient hypoxic she was placed on oxygen. Patient was told there is a high likelihood that she will require admission. Work-up included CBC, CMP, lactate and chest x-ray. Patient was treated with DuoNeb followed by 2 albuterol treatments. I was informed by the respiratory therapist at 1028 that patient has more air movement on the left than initially. Lab Data Attestation: I reviewed the patient's lab results. Lab results narrative: Comprehensive metabolic panel reveals slight elevated BUN to creatinine ratio. Glucose is elevated with a normal CO2 and anion gap. Lactate is normal. Albumin is 2.7 with a normal calcium level. Labs: Laboratory Results - last 24 hr 02/23/23 02/23/23 02/23/23 09:45 09:45 09:45 WBC 10.3 RBC 4.03 L Hgb 12.3 Hct 37.7 MCV 93.5 MCH 30.5 MCHC 32.6 RDW Std Deviation 45.9 H RDW Coeff of Sylvester 13.4 Plt Count 235 MPV 10.2 Immature Gran % (Auto) 1.000 H Neut % (Auto) 73.7 H Lymph % (Auto) 10.4 L Charlton % (Auto) 12.7 H Eos % (Auto) 1.7 Baso % (Auto) 0.5 Absolute Neuts (auto) 7.6 Absolute Lymphs (auto) 1.07 Nucleated RBC % 0 Sodium 140 Potassium 3.5 Chloride 104 Carbon Dioxide 30.0 Anion Gap 6 BUN 16 Creatinine 0.68 Estim Creat Clear Calc 49.12 Est GFR (MDRD) Af Amer 111 Est GFR (MDRD) Non-Af 92 BUN/Creatinine Ratio 23.5 H Glucose 217 H Lactic Acid 1.6 Calcium 9.3 Total Bilirubin 0.60 AST 28 ALT 26 Alkaline Phosphatase 133 H Total Protein 7.3 Albumin 2.7 L Globulin 4.6 H Albumin/Globulin Ratio 0.6 L Radiography Chest X-Ray - ED: 2 View and Read by ED Physician (Patient has a right lower lobe infiltrate. There is also abnormal interstitial findings left lower lobe, atelectasis. Cardiac size is normal. Perihilar regions unremarkable. Osseous structures unremarkable. This independently reviewed interpreted by me at 1115.) Rhythm Strip Rhythm Strip: Sinus Rhythm Rate: 99 Ectopy: None EKG Initial EKG: Attestation: I personally reviewed and interpreted this EKG as follows: Interpretation: Sinus Rhythm (Rate is 97. [place] interval 180 ms. Cures duration 100 ms. QT duration 306 to 6 ms. [place] is normal. There is artifact which the computer is reading is nonspecific ST-T wave changes.) Differential Diagnosis Chest pain/SOB: pulmonary embolism Reason(s) PE less likely: Positive for Other (History and physicals consistent with pneumonia), ACS ACS: Positive for EKG without ischemia and history not suggestive of ischemia pain and pneumothorax Reason(s) pneumothorax less likely: Positive for bilateral breath sounds and [employer] SPECIALIST withhout PTX Treatment and Re-Evaluation :: Since patient does not have evidence of endorgan dysfunction blood cultures were not obtained. She was treated for community-acquired pneumonia with Rocephin and azithromycin. Since she is hypoxic requiring oxygen will contact hospitalist for admission When I went in to inform patient of her laboratory results and chest x-ray findings pulse ox is 85% on 2 L. There is a good waveform. Patient's oxygen was increased to 4 L by nasal cannula. Discharge Plan Dx/Rx/DC Orders Clinical Impression: Right lower lobe pneumonia, Benign hypertension, Obesity (BMI 30.0-34.9), High cholesterol, Acute respiratory failure with hypoxia, Acute bronchospasm Disposition Disposition: Acute Care Hospital [facility] What to do if you have Problems For any increased pain, shortness of breath, bleeding, nausea or vomiting, chest pain, or any unexpected problems, contact your Primary Care Provider. Call [facility] ([phone]) or report to the closest Emergency Room. Call 911 if necessary. 02/23/23 1132 <Electronically signed by Brando Weiss MD> Cosigner Signature (if applicable): CC: Dr. Madelin Alberto, DO Signed Madelin Alberto DO Work Phone: Start: 02-23-2023 Plain chest X-ray Dr. Madelin Alberto Work Phone: Start: 02-23-2023 End: 02-23-2023 Procedure Note: See Note; NOTES: [facility] Imaging Services [address] [place] [address] Chest PA and Lateral MR#: [id number] Acct: [id number] Name: ERIN LAWRENCE Rep #: [id number] : 1955 F 68 From: Lety packer MD PCP: Dr. Madelin Alberto DO Status: REG ER Study: Chest PA and Lateral Date of Exam: 02/23/23 Exam# [id number] Ordering Dr: Brando Weiss MD HISTORY: Hypoxia, bilateral rales, wheezing egophony RLL. TECHNIQUE: XR Chest 2 Views. COMPARISON: None. FINDINGS: CARDIOMEDIASTINAL BORDERS: Cardiac silhouette within normal limits in size. Calcification of the aortic knob. LUNGS: Moderate opacities in the periphery of the right midlung extending into the right lung base. Mild opacities of the left mid to lower lung. PLEURA: Trace bilateral pleural effusions. OSSEOUS STRUCTURES: Degenerative change. RAD/Chest PA and Lateral IMPRESSION: Very mild pleural effusions with patchy opacities in the mid to lower lungs, concerning for pneumonia. Electronically Signed: Lety Coulter MD at 11:41 EDT Reading Location ID and State: [facility] / [place] Tel , Service support , CC: Dr. Madelin Alberto DO; Dr. Brando Weiss MD Rental Salesperson: Geena Alberto DO Work Phone: Start: 09-27-2022 End: 09-27-2022 Procedure Note: See Note; NOTES: [facility] [address] [place] [address] OFFICE VISIT Date of Service: 09/27/22 MR#: [id number] Acct: [id number] Name: ERIN LAWRENCE Rep #: [id number] : 1955 Provider: JOVI cueto Age/Sex: 67/F [place] [facility] [place]: Signed Intake Vital Signs 09/27/22 14:09 Height 5 ft 5 in Weight: 183 lb BMI 30.4 BP 142/70 H Blood Pressure Location Rt brachial Position Sitting Respiration 18 Pulse 77 Pulse Source Monitor Temp 97.3 F L Temp Source Temporal Pulse Oximetry (%) 92 Oxygen Delivery Method room air Intake Visit Reasons: 5 m fu Chief Complaint: Diabetes Otolaryngology Surgeon Required: No Accompanied by: None Is patient in pain?: No Allergies glimepiride [From Amaryl] Allergy (Mild, Verified 09/27/22 14:18) rash lisinopril Allergy (Mild, Verified 09/27/22 14:18) rash losartan Allergy (Mild, Verified 09/27/22 14:18) rash Medications cholecalciferol (vitamin D3) 125 mcg (5,000 unit) capsule 125 mcg PO DAILY 02/14/21 [History Confirmed 09/27/22] levothyroxine 50 mcg capsule 50 mcg PO DAILY 02/14/21 [History Confirmed 09/27/22] rosuvastatin 10 mg tablet 10 mg PO QHS 02/14/21 [History Confirmed 09/27/22] venlafaxine 75 mg tablet 75 mg PO DAILY 02/14/21 [History Confirmed 09/27/22] amlodipine 10 mg tablet 10 mg PO DAILY #90 tabs 02/22/22 [Rx Confirmed 09/27/22] metformin 500 mg tablet 1,000 mg PO BID #360 tabs 02/22/22 [Rx Confirmed 09/27/22] hydrochlorothiazide 12.5 mg tablet 12.5 mg PO DAILY #90 tabs 04/26/22 [Rx Confirmed 09/27/22] insulin syringe-needle U-100 0.3 mL 31 gauge x 5/16 (BD Insulin Syringe Ultra-Fine) #100 ea 05/21/22 [Rx Confirmed 09/27/22] Nurse's Note: Reports has blood work ordered by PCP and questions if any more tests need added. [facility] Medical History Asthma Benign hypertension Cataracts, bilateral Diabetes High cholesterol High triglycerides Mixed hyperlipidemia Overweight (BMI 25.0-29.9) Vitamin deficiency Surgical History Hx of appendectomy Family History Sister Arthritis Colon cancer, Onset Age: 54 Mother Colon cancer, Onset Age: 71 Diabetes Myocardial infarction, Onset Age: 71 Aunt Uterine cancer Social History Smoking Status: Never smoker alcohol intake: never substance use type: does not use HPI HPI Chief Complaint: Diabetes Details: ERIN LAWRENCE, is a 67 F who presents to the office today for evaluation and management of diabetes. A1C today is 7.5%, increased from 04/26/22 at 6.8%. She admits that she has gotten off track with her diet. Currently taking N 17 u AM and 14 u PM, and metformin 1 gm BID with meals. She denies any instances of lows. Admits that her supper consists of low fiber carbohydrates. She was to have labs completed with PCP but has not had them drawn yet. Denies any acute concerns. Of note- cardiac murmur detected at last appointment, she did discuss with PCP, however, states it was inaudible. Exam Const General: cooperative, healthy appearing, comfortable and no acute distress Nutritional Appearance: obese Orientation: alert, awake and oriented x3 HENMT Head: normal to inspection Ears: hearing grossly normal bilaterally Nose: external nose normal Face and sinus: normal facial exam Eyes General: appearance normal, both eyes and all related structures Alignment and Position: alignment normal Sclera: sclerae normal Neck Neck: normal visual inspection Neck mass: No Carotids: normal carotid upstroke Chest Chest palpation inspection: normal inspection of the chest Resp Effort Inspection: normal respiratory effort, able to speak in complete sentences, symmetric chest movement, normal respiratory pattern, no audible wheezes and no cough Auscultation: Bilateral: Clear to Auscultation Cardio Rate: regular rate Rhythm: regular rhythm Heart Sounds: S1 normal, S2 normal and murmur systolic III/ and at the right sternal border GI Inspection: normal to inspection and obesity Musc Cervical Spine: normal cervical lordosis Thoracic/Lumbar Spine: thoracic and lumbar spine normal to inspection Skin General: no rashes or lesions noted Lesions: no lesions Rashes: no rashes Trauma: no lacerations or abrasions Wounds: no wounds Neuro General: patient alert, patient awake and patient oriented x3 Cognition: normal cognition Speech: speech normal Gait: normal gait Extrem General: normal to inspection, full ROM and no pedal edema Psych Appearance: grossly normal Mental Status: mental status grossly normal Mood: congruent mood Affect: normal affect Speech and Movement: speech and movement normal Attitude: cooperative Thought Process: normal Thought Content: normal Judgment: judgment good Results POC A1C POC A1C 7.5 % Last Edit by Maria Troncoso on 09/27/22 14:24 Coding Level of Care Code Off vis,est,level 4 Diagnoses Diabetes E11.65 Diabetes mellitus type: type 2 Diabetes mellitus long-term insulin use: without long-term use Diabetes mellitus complication status: with hyperglycemia Benign hypertension I10 Vitamin D deficiency E55.9 Cardiac murmur R01.1 Assessment and Plan Assessment and Plan (1) Diabetes: Status: Chronic Qualifiers: Diabetes mellitus type: type 2 Diabetes mellitus long-term insulin use: without long-term use Diabetes mellitus complication status: with hyperglycemia Qualified Code(s): E11.65 - Type 2 diabetes mellitus with hyperglycemia Plan: Chronic- not optimally controlled. A1C not at goal: <7.5%. I reviewed with the patient the risk of developing and worsening of diabetes complications including retinopathy, neuropathy, nephropathy, heart attack, stroke, amputation, and sudden . Diabetes education provided. Continue metformin 1 gm BID with food. Continue N 17 u AM and 14 u PM. Add Lyumjev 4 u with supper. Call office with persistent lows. Please get labs drawn for PCP RUDDY. Follow up in 3 months. (2) Benign hypertension: Status: Chronic Plan: Chronic- improving. Continue HCTZ 12.5 mg once daily. Continue amlodipine 10 mg once daily. Will continue to monitor. (3) Vitamin D deficiency: Status: Chronic Plan: Chronic- stability unknown. Will have drawn with labs for PCP. Continue vitamin D3 5,000 iu once daily. Will continue to monitor. (4) Cardiac murmur: Status: Chronic Plan: Chronic- stability unknown. Please address with PCP, given risk factors for cardiovascular disease, may require additional workup. Discussed red flag symptoms requiring urgent medical attention. I have spent [32] minutes today reviewing labs, records and history. Time includes coordinating care, interpretation of tests, discussion with patient's other health care providers via telephone. This also includes time I spent with the patient for exam, treatment plan and education as well as documenting clinical information. Orders: Orders POC A1C Today E11.9 - Type 2 diabetes mellitus without complications Plan Details Follow Up: 3 Months 09/27/22 1524 <Electronically signed by Bernarda ESPANA> Date Bernarda ESPANA Cosigner Signature: Date (if applicable) CC: Dr. Madelin Alberto, DO Madelin Alberto DO Work Phone: Start: 04-26-2022 End: 04-26-2022 Procedure Note: See Note; NOTES: [facility] [address] [place] [address] OFFICE VISIT Date of Service: 04/26/22 MR#: [id number] Acct: [id number] Name: ERIN LAWRENCE Rep #: [id number] : 1955 Provider: JOVI cueto Age/Sex: 67/F [place] [facility] [place]: Signed Intake Vital Signs 04/26/22 14:23 Height 5 ft 5 in Weight: 184 lb 2 oz BMI 30.6 BP 150/80 H Blood Pressure Location Lt brachial Position Sitting Respiration 16 Pulse 97 Pulse Source Auscultation Temp 97.3 F L Temp Source Temporal Pulse Oximetry (%) 93 Oxygen Delivery Method room air Intake Visit Reasons: 2 M FU Chief Complaint: Diabetes Otolaryngology Surgeon Required: No Accompanied by: Self Is patient in pain?: No Allergies glimepiride [From Amaryl] Allergy (Mild, Verified 04/26/22 14:31) rash lisinopril Allergy (Mild, Verified 04/26/22 14:31) rash losartan Allergy (Mild, Verified 04/26/22 14:31) rash PFSH Medical History Asthma Benign hypertension Cataracts, bilateral Diabetes High cholesterol High triglycerides Mixed hyperlipidemia Overweight (BMI 25.0-29.9) Vitamin deficiency Surgical History Hx of appendectomy Family History Sister Arthritis Colon cancer, Onset Age: 54 Mother Colon cancer, Onset Age: 71 Diabetes Myocardial infarction, Onset Age: 71 Aunt Uterine cancer Social History Smoking Status: Never smoker alcohol intake: never substance use type: does not use HPI HPI Chief Complaint: Diabetes Details: ERIN LAWRENCE, is a 67 F who presents to the office today for evaluation and management of diabetes. A1C today is 6.8%, improved from 01/08/22 at 8.0%. Currently taking metformin 1 gm BID with food, and N 15 u AM, 12 u PM. Denies any instances of lows. She brings a blood sugar log for review- average fasting 140-150, HS 150-200. She is trying to decrease amount of low quality carbohydrates. Labs are up to date with PCP. 01/08/22 GFR- 101. BP remains elevated today at 150/80, at least appointment 150/96. Currently taking amlodipine 10 mg once daily. She has been on ACEI/ARB in remote past and complained of rash with both. Denies any acute concerns. Exam Const General: cooperative, healthy appearing, comfortable and no acute distress Nutritional Appearance: obese Orientation: alert, awake and oriented x3 HENMT Head: normal to inspection Ears: hearing grossly normal bilaterally Eyes General: appearance normal, both eyes and all related structures Alignment and Position: alignment normal Sclera: sclerae normal Neck Neck: normal visual inspection and full ROM Neck mass: No Carotids: normal carotid upstroke Chest Chest palpation inspection: normal inspection of the chest Resp Effort Inspection: normal respiratory effort, able to speak in complete sentences, symmetric chest movement, no audible wheezes and no cough Auscultation: Bilateral: Clear to Auscultation Cardio Rate: regular rate Rhythm: regular rhythm Heart Sounds: murmur systolic IV/, at the left sternal border and at the right sternal border GI Inspection: normal to inspection and obesity Musc Cervical Spine: normal cervical lordosis Thoracic/Lumbar Spine: thoracic and lumbar spine normal to inspection Skin General: no rashes or lesions noted Lesions: no lesions Rashes: no rashes Trauma: no lacerations or abrasions Wounds: no wounds Neuro General: patient alert, patient awake and patient oriented x3 Cognition: normal cognition Speech: speech normal Gait: normal gait Extrem General: normal to inspection, full ROM and no pedal edema Psych Appearance: grossly normal Mental Status: mental status grossly normal Mood: congruent mood Affect: normal affect Speech and Movement: speech and movement normal Attitude: cooperative Thought Process: normal Thought Content: normal Judgment: judgment good Results POC A1C POC A1C 6.8 % Last Edit by Yana Spence on 04/26/22 14:34 Coding Level of Care Code Off vis,est,level 4 Diagnoses Diabetes E11.65 Diabetes mellitus type: type 2 Diabetes mellitus long-term insulin use: without long-term use Diabetes mellitus complication status: with hyperglycemia Benign hypertension I10 Obesity (BMI 30.0-34.9) E66.9 Cardiac murmur R01.1 Assessment and Plan Assessment and Plan (1) Diabetes: Status: Chronic Qualifiers: Diabetes mellitus type: type 2 Diabetes mellitus long-term insulin use: without senior manager mergers & acquisitions use Diabetes mellitus complication status: with hyperglycemia Qualified Code(s): E11.65 - Type 2 diabetes mellitus with hyperglycemia Plan: Chronic- controlled. I reviewed with the patient the risk of developing and worsening of diabetes complications including retinopathy, neuropathy, nephropathy, heart attack, stroke, ampuation, and sudden . Diabetes education provided. Continue metformin 1 gm BID with food. Increase N to 17 u AM, 14 u PM. I asked the patient to mail/fax glucose log monthly for medication adjustment. Follow up in 5 months. (2) Benign hypertension: Status: Chronic Plan: Chronic- not well controlled. Continue amlodipine 10 mg once daily. Add HCTZ 12.5 mg once daily. Will continue to monitor. (3) Obesity (BMI 30.0-34.9): Status: Chronic Plan: Chronic- stable. Nutritional counseling provided, avoid flour, sugar, and artificial sweeteners. Encouraged a diet that contains high quality carbohydrates rich in fiber. (4) Cardiac murmur: Status: Acute Plan: Newly diagnosed. Please call PCP for further evaluation/referral. Discussed red flag symptoms requiring urgent medical attention. I have spent [36] minutes today reviewing labs, records and history. Time includes coordinating care, interpretation of tests, discussion with patient's other health care providers via telephone. This also includes time I spent with the patient for exam, treatment plan and education as well as documenting clinical information. Medications: New hydrochlorothiazide 12.5 mg PO DAILY 90 tabs 1RF I10 - Essential (primary) hypertension Plan Details Follow Up: 5 Months 04/26/22 1525 <Electronically signed by Bernarda ESPANA> Date Bernarda ESPANA Cosigner Signature: Date (if applicable) CC: Dr. Madelin Alberto, DO Madelin Alberto DO Work Phone: Start: 02-22-2022 End: 02-22-2022 Procedure Note: See Note; NOTES: [facility] [address] [place] [address]. [address] [place] [address] OFFICE VISIT Date of Service: 02/22/22 MR#: [id number] Acct: [id number] Name: ERIN LAWRENCE Rep #: [id number] : 1955 Provider: JOVI cueto Age/Sex: 67/F [place] [facility] [place]: Signed Intake Vital Signs 02/22/22 14:21 Height 5 ft 5 in Weight: 181 lb 4 oz BMI 30.1 BP 150/96 H Blood Pressure Location Lt brachial Position Sitting Respiration 18 Pulse 83 Pulse Source Monitor Temp 96.3 F L Temp Source Temporal Pulse Oximetry (%) 92 Oxygen Delivery Method room air Intake Visit Reasons: 1 M FU Chief Complaint: Diabetes Otolaryngology Surgeon Required: No Accompanied by: self Is patient in pain?: No Allergies glimepiride [From Amaryl] Allergy (Mild, Verified 02/22/22 14:27) rash lisinopril Allergy (Mild, Verified 02/22/22 14:27) rash losartan Allergy (Mild, Verified 02/22/22 14:27) rash Nurse's Note: Pt had A1C 01/08/22 8.0% PFS Medical History Asthma Benign hypertension Cataracts, bilateral Diabetes High cholesterol High triglycerides Mixed hyperlipidemia Overweight (BMI 25.0-29.9) Vitamin deficiency Surgical History Hx of appendectomy Family History Sister Arthritis Colon cancer, Onset Age: 54 Mother Colon cancer, Onset Age: 71 Diabetes Myocardial infarction, Onset Age: 71 Aunt Uterine cancer Social History Smoking Status: Never smoker alcohol intake: never substance use type: does not use HPI HPI Chief Complaint: Diabetes Details: ERIN LAWRENCE, is a 67 F who presents to the office today for evaluation and management of diabetes. A1C on 01/08/22 was 8.0%. She brings blood sugar log in for review- fasting blood sugars averaging mid 100 range. She denies any instances of lows. Currently taking metformin 1 gm BID with food, and insulin N 10 u BID. She has been trying to improve diet, however she is still eating a large amount of low quality carbohydrates. Of note- BP remains elevated at today's visit at 150/96. She continues to complain of vaginal itching. She is using Vagisil OTC with temporary improvement. Denies any other acute concerns. Exam Const General: cooperative, healthy appearing, comfortable and no acute distress Nutritional Appearance: obese Orientation: alert, awake and oriented x3 HENMT Head: normal to inspection Ears: hearing grossly normal bilaterally Eyes General: appearance normal, both eyes and all related structures Alignment and Position: alignment normal Sclera: sclerae normal Neck Neck: normal visual inspection and full ROM Neck mass: No Carotids: normal carotid upstroke Chest Chest palpation inspection: normal inspection of the chest Resp Effort Inspection: normal respiratory effort, able to speak in complete sentences, symmetric chest movement, no audible wheezes and no cough GI Inspection: normal to inspection and obesity Musc Cervical Spine: normal cervical lordosis Thoracic/Lumbar Spine: thoracic and lumbar spine normal to inspection Skin General: no rashes or lesions noted Lesions: no lesions Rashes: no rashes Trauma: no lacerations or abrasions Wounds: no wounds Neuro General: patient alert, patient awake and patient oriented x3 Cognition: normal cognition Speech: speech normal Gait: normal gait Extrem General: normal to inspection, full ROM and no pedal edema Psych Appearance: grossly normal Mental Status: mental status grossly normal Mood: congruent mood Affect: normal affect Speech and Movement: speech and movement normal Attitude: cooperative Thought Process: normal Thought Content: normal Judgment: judgment good Coding Level of Care Code Off vis,est,level 4 Diagnoses Diabetes E11.65 Diabetes mellitus type: type 2 Diabetes mellitus long-term insulin use: without senior manager mergers & acquisitions use Diabetes mellitus complication status: with hyperglycemia Benign hypertension I10 Obesity (BMI 30.0-34.9) E66.9 Vaginal itching N89.8 Assessment and Plan Assessment and Plan (1) Diabetes: Status: Chronic Qualifiers: Diabetes mellitus type: type 2 Diabetes mellitus long-term insulin use: without long-term use Diabetes mellitus complication status: with hyperglycemia Qualified Code(s): E11.65 - Type 2 diabetes mellitus with hyperglycemia Plan - Bernarda Akbar NP-C: Chronic- not well controlled. I reviewed with the patient the risk of developing and worsening of diabetes complications including retinopathy, neuropathy, nephropathy, heart attack, stroke, amputation, and sudden . Diabetes education provided. Personally reviewed blood sugar logs. Increase insulin N to 15 u AM and 12 u PM. Continue metformin 1 gm BID with food. I asked the patient to mail/fax glucose log monthly for medication adjustment. Follow up in 2 months. (2) Benign hypertension: Status: Chronic Mateo Akbar NP-C: Chronic- not well controlled. Increase amlodipine to 10 mg once daily. Will continue to monitor. If elevation persists, consider adding HCTZ. (3) Obesity (BMI 30.0-34.9): Status: Chronic Mateo Akbar NP-C: Chronic- stable. Nutritional counseling provided, avoid flour, sugar, and artificial sweeteners. Encouraged a diet that contains high quality carbohydrates rich in fiber. (4) Vaginal itching: Status: Chronic Mateo Akbar NP-C: Chronic- not well controlled. Instructed to continue using Vagisil daily. Add low dose hydrocortisone cream for intense itching. Achieve and maintain glycemic control as itching could have yeast component d/t poorly controlled blood sugars. If itching persists, please follow up with PCP or [facility]. I have spent [35] minutes today reviewing labs, records and history. Time includes coordinating care, interpretation of tests, discussion with patient's other health care providers via telephone. This also includes time I spent with the patient for exam, treatment plan and education as well as documenting clinical information. Plan Details Other Medications: New: amlodipine 10 mg PO DAILY 90 tabs 3RF Refilled: metformin 1,000 mg (2 x 500 mg) PO BID 360 tabs 1RF Discontinued: pioglitazone Discontinued Reason: Order Changed 30 mg PO DAILY 90 tabs 1RF Follow Up: 2 Months 02/22/22 1414 <Electronically signed by Bernarda ESPANA> Date Bernarda ESPANA Cosigner Signature: Date (if applicable) CC: Dr. Madelin Alberto, DO Madelin Alberto DO Work Phone: Start: 01-08-2022 End: 01-08-2022 Procedure Note: See Note; NOTES: [facility] [address] [place] [address]. [address] [place] [address] OFFICE VISIT Date of Service: 01/08/22 MR#: [id number] Acct: [id number] Name: ERIN LAWRENCE Rep #: [id number] : 1955 Provider: JOVI cueto Age/Sex: 67/F [place] [facility] [place]: Signed Intake Vital Signs 01/08/22 13:57 Height 5 ft 5 in Weight: 182 lb 2 oz BMI 30.3 BP 140/88 H Blood Pressure Location Lt brachial Position Sitting Respiration 18 Pulse 92 Pulse Source Monitor Temp 97.2 F L Temp Source Temporal Pulse Oximetry (%) 94 Oxygen Delivery Method room air Intake Visit Reasons: f/u dm Chief Complaint: Diabetes Otolaryngology Surgeon Required: No Accompanied by: self Is patient in pain?: No Allergies glimepiride [From Amaryl] Allergy (Mild, Verified 01/08/22 14:03) rash lisinopril Allergy (Mild, Verified 01/08/22 14:03) rash losartan Allergy (Mild, Verified 01/08/22 14:03) rash Nurse's Note: Pt had A1C today at PCP 8.0% [facility] Medical History Asthma Benign hypertension Cataracts, bilateral Diabetes High cholesterol High triglycerides Mixed hyperlipidemia Overweight (BMI 25.0-29.9) Vitamin deficiency Surgical History Hx of appendectomy Family History Sister Arthritis Colon cancer, Onset Age: 54 Mother Colon cancer, Onset Age: 71 Diabetes Myocardial infarction, Onset Age: 71 Aunt Uterine cancer Social History Smoking Status: Never smoker alcohol intake: never substance use type: does not use HPI HPI Chief Complaint: Diabetes Details: ERIN LAWRENCE, is a 67 F who presents to the office today for evaluation and management of diabetes. A1C today is 8.0%, improved from 06/27/21 at 8.7%. Currently taking metformin 1 gm BID, usually with food. Pioglitazone 30 mg once daily was added to her medication regimen at last appointment. States she has been having vaginal itching for 1 year, she did see her PCP today and was told she has a touch of yeast and estrogen deficiency. Reported trace swelling to bilateral lower extremities with pioglitazone, she also thought that pioglitazone could be responsible for her vaginal itching and discontinued approximately 1 month ago. Reports BLE swelling resolved, vaginal itching continues. Her diet consists mostly of low quality carbohydrates. Complains of daytime fatigue. She is not checking her blood sugars routinely. Denies any other acute concerns. Exam Const General: cooperative, healthy appearing, comfortable and no acute distress Nutritional Appearance: obese Orientation: alert, awake and oriented x3 HENMT Head: normal to inspection Ears: hearing grossly normal bilaterally Eyes General: appearance normal, both eyes and all related structures Alignment and Position: alignment normal Sclera: sclerae normal Neck Neck: normal visual inspection and full ROM Neck mass: No Carotids: normal carotid upstroke Chest Chest palpation inspection: normal inspection of the chest Resp Effort Inspection: normal respiratory effort, able to speak in complete sentences, symmetric chest movement, no audible wheezes and no cough Auscultation: Bilateral: Clear to Auscultation Cardio Rate: regular rate Rhythm: regular rhythm Heart Sounds: S1 normal and S2 normal Bruits: no carotid bruits GI Inspection: normal to inspection Musc Cervical Spine: normal cervical lordosis Thoracic/Lumbar Spine: thoracic and lumbar spine normal to inspection Skin General: no rashes or lesions noted Lesions: no lesions Rashes: no rashes Trauma: no lacerations or abrasions Wounds: no wounds Neuro General: patient alert, patient awake and patient oriented x3 Cognition: normal cognition Speech: speech normal Gait: normal gait Extrem General: normal to inspection, full ROM and no pedal edema Psych Appearance: grossly normal Mental Status: mental status grossly normal Mood: congruent mood Affect: normal affect Speech and Movement: speech and movement normal Attitude: cooperative Thought Process: normal Thought Content: normal Judgment: judgment good Coding Level of Care Code Off vis,est,level 4 Diagnoses Diabetes E11.65 Diabetes mellitus type: type 2 Diabetes mellitus senior manager mergers & acquisitions insulin use: without long-term use Diabetes mellitus complication status: with hyperglycemia Mixed hyperlipidemia E78.2 Benign hypertension I10 Obesity (BMI 30.0-34.9) E66.9 Assessment and Plan Assessment and Plan (1) Diabetes: Status: Chronic Qualifiers: Diabetes mellitus type: type 2 Diabetes mellitus senior manager mergers & acquisitions insulin use: without long-term use Diabetes mellitus complication status: with hyperglycemia Qualified Code(s): E11.65 - Type 2 diabetes mellitus with hyperglycemia Plan - Bernarda Akbar NP-C: Chronic- not well controlled. I reviewed with the patient the risk of developing and worsening of diabetes complications including retinopathy, neuropathy, nephropathy, heart attack, stroke, amputation, and sudden . Diabetes education provided. Continue metformin 1 gm BID WITH FOOD. Instructed her to take immediately before her meal. Discontinue pioglitazone d/t edema. Start insulin N 10 u BID. Instructed how to draw up and administer insulin. Returned demonstration with proper technique. Tolerated ewll. Take blood sugar fasting and HS. I asked the patient to mail/fax glucose log monthly for medication adjustment. Reviewed plate method and importance of pairing insulin requiring foods with non-insulin requiring foods. Follow up in 1 month. (2) Mixed hyperlipidemia: Status: Chronic Plan - Bernarda Akbar, HAM SAWYER-C: Chronic- stability unknown. Obtain recent lipid panel from PCP. Continue rosuvastatin 10 mg QHS. (3) Benign hypertension: Status: Acute Plan - Bernarda Akbar, HAM SAWYER-C: Chronic- not well controlled. Continue amlodipine 5 mg once daily. Will continue to monitor. Consider increase CCB at next appointment if BP continues to be elevated. (4) Obesity (BMI 30.0-34.9): Status: Chronic Plan - Bernarda Akbar, HAM SAWYER-C: Chronic- not well controlled. Nutritional counseling provided, avoid flour, sugar, and artificial sweeteners. Encouraged a diet that contains high quality carbohydrates rich in fiber. I have spent [38] minutes today reviewing labs, records and history. Time includes coordinating care, interpretation of tests, discussion with patient's other health care providers via telephone. This also includes time I spent with the patient for exam, treatment plan and education as well as documenting clinical information. Plan Details Follow Up: 1 Month 01/08/22 1603 <Electronically signed by Bernarda ESPANA> Date Bernarda ESPANA Cosigner Signature: Date (if applicable) CC: Dr. Madelin Alberto, DO Madelin Alberto DO Work Phone: Start: 06-27-2021 End: 06-27-2021 Endocrinology Visit Report Comments: See Note; NOTES: [facility] [address] [place] [address] OFFICE VISIT Date of Service: 06/27/21 MR#: [id number] Acct: [id number] Name: ERIN LAWRENCE Rep #: [id number] : 1955 Provider: Kaia Millan Age/Sex: 66/F [place] [facility] [place] Signed Intake Vital Signs 06/27/21 14:50 Height 5 ft 5 in Weight: 175 lb 6 oz BMI 29.2 BP 120/80 Blood Pressure Location Lt brachial Position Sitting Respiration 16 Pulse 84 Pulse Source Monitor Temp 97.0 F L Temp Source Temporal Pulse Oximetry (%) 95 Oxygen Delivery Method room air Intake Visit Reasons: EST CARE Chief Complaint: Diabetes Otolaryngology Surgeon Required: No Accompanied by: self Is patient in pain?: No Allergies glimepiride [From Amaryl] Allergy (Mild, Verified 06/27/21 14:57) rash lisinopril Allergy (Mild, Verified 06/27/21 14:57) rash losartan Allergy (Mild, Verified 06/27/21 14:57) rash Medications amlodipine 5 mg tablet 5 mg PO DAILY 02/14/21 [History Confirmed 03/02/21] cholecalciferol (vitamin D3) 125 mcg (5,000 unit) capsule 125 mcg PO DAILY 02/14/21 [History Confirmed 03/02/21] levothyroxine 50 mcg capsule 50 mcg PO DAILY 02/14/21 [History Confirmed 03/02/21] rosuvastatin 10 mg tablet 10 mg PO QHS tab 02/14/21 [History Confirmed 03/02/21] venlafaxine 75 mg tablet 75 mg PO DAILY 02/14/21 [History Confirmed 03/02/21] meclizine 25 mg PO 4X/DAY PRN PRN #20 tab 03/02/21 [Rx] metformin 500 mg tablet 1,000 mg PO BID #60 tab 06/27/21 [Rx Confirmed 06/27/21] pioglitazone 30 mg tablet 30 mg PO DAILY #30 tab 06/27/21 [Rx Confirmed 06/27/21] [facility] Medical History (Updated 06/27/21 @ 17:[address] Jf Perla MD) Asthma Benign hypertension Cataracts, bilateral Diabetes High cholesterol High triglycerides Mixed hyperlipidemia Overweight (BMI 25.0-29.9) Vitamin deficiency Surgical History Hx of appendectomy Family History Sister Arthritis Colon cancer, Onset Age: 54 Mother Colon cancer, Onset Age: 71 Diabetes Myocardial infarction, Onset Age: 71 Aunt Uterine cancer Social History Smoking Status: Never smoker alcohol intake: never substance use type: does not use HPI HPI Chief Complaint: Diabetes Details: ERIN LAWRENCE, is a 66 F who presents to the office today for evaluation and management of diabetes. She was diagnosed 4 years ago She states she is overwhelmed by all of the information and she has not prioritized taking care of herself. She is supposed to be on metformin 1 g bid. She doesn't take it all of the time and she doesn't take them with food. She states she didn't know you were supposed to. She has no known diabetes complications. A1C is 8.7% Exam Const General: cooperative, healthy appearing, comfortable, no acute distress, well developed and not cushingoid Nutritional Appearance: well nourished Orientation: alert, awake and oriented x3 HENMT Head: normal to inspection Ears: hearing grossly normal bilaterally Nose: external nose normal Mouth: oral mucosae normal Eyes General: appearance normal, both eyes and all related structures Alignment and Position: alignment normal Periorbital: periorbital findings normal Eyelids: eyelids normal Conjunctivae: conjunctivae normal Neck Neck: normal visual inspection Neck mass: No Thyroid: thyroid normal Carotids: no bruits Lymphatic: no lymphadenopathy noted Chest Chest palpation inspection: normal inspection of the chest Resp Effort Inspection: normal respiratory effort, able to speak in complete sentences, symmetric chest movement, no audible wheezes and no cough Auscultation: Bilateral: Clear to Auscultation Cardio Rate: regular rate Rhythm: regular rhythm Pulses: posterior tibial pulses present GI Inspection: normal to inspection Auscultation: normal bowel sounds Palpation: soft and no hepatosplenomegaly Skin General: no rashes or lesions noted Neuro General: patient alert, patient awake and patient oriented x3 Cranial Nerves: CN's II-XI intact bilaterally Cognition: normal cognition Speech: speech normal Gait: normal gait Motor: muscle tone normal throughout Extrem General: no edema Psych Appearance: grossly normal Mental Status: mental status grossly normal Mood: congruent mood Affect: normal affect Speech and Movement: speech and movement normal Attitude: cooperative Thought Process: normal Thought Content: normal Judgment: judgment good Results POC A1C POC A1C 8.7 % Last Edit by Yana Minaya on 06/27/21 15:07 Coding Level of Care Code Off vis,new,level 5 Diagnoses Diabetes E11.65 Diabetes mellitus type: type 2 Diabetes mellitus senior manager mergers & acquisitions insulin use: without long-term use Diabetes mellitus complication status: with hyperglycemia Benign hypertension I10 Mixed hyperlipidemia E78.2 Overweight (BMI 25.0-29.9) E66.3 Assessment and Plan Assessment and Plan (1) Diabetes: Status: Acute Qualifiers: Diabetes mellitus type: type 2 Diabetes mellitus senior manager mergers & acquisitions insulin use: without long-term use Diabetes mellitus complication status: with hyperglycemia Qualified Code(s): E11.65 - Type 2 diabetes mellitus with hyperglycemia Plan - Dr. Jf Perla MD: Diabetes education provided. I reviewed with the patient the risk of developing and worsening of diabetes complications including retinopathy, neuropathy, nephropathy, heart attack, stroke, ampuation, and sudden . Take metformin with food. Add pioglitazone. She cannot afford brand name medications. (2) Benign hypertension: Status: Acute Plan - Dr. Jf Perla MD: Controlled, please continue current medications. (3) Mixed hyperlipidemia: Status: Acute Plan - Dr. Jf Perla MD: Continue statin. (4) Overweight (BMI 25.0-29.9): Status: Acute Plan - Dr. Jf Perla MD: Nutritional counseling provided, avoid flour, sugar, and artificial sweeteners. Plate method dietary sheet given to the patient and explained in detail. Match all insulin requiring foods with a non-insulin requiring food. Also, choose high fiber, low glycemic index carbohydrates. I have spent [63] minutes today reviewing labs, records and history. Time includes coordinating care, interpretation of tests, discussion with patient's other health care providers via telephone. This also includes time I spent with the patient for exam, treatment plan and education as well as documenting clinical information. Plan Details Other Medications: New: pioglitazone 30 mg PO DAILY 30 tabs 6RF metformin 1,000 mg (2 x 500 mg) PO BID 60 tabs 6RF 06/27/21 1801 <Electronically signed by Jf Perla MD> Date Jf Perla MD Cosigner Signature: Date (if applicable) CC: DO Madelin Perales DO Work Phone: Start: 03-02-2021 End: 03-02-2021 Emergency Department Summary Comments: See Note; NOTES: [facility] Medical Records Department [address] [place] [address] Emergency Department Summary 03/02/21 MR#: [id number] Acct: [id number] Name: ERIN LAWRENCE Rep #: [id number] : 1955 66 From: Live Shannon MD PCP: Dr. Madelin Alberto DO Status:REG ER Location: ED HPI History of Present Illness Chief Complaint: Dizziness Informant: patient Onset/Context/Timing Onset: Yesterday Context: Sudden Onset (As she laid down to go to bed) Timing: Intermittent Quality: Sensation of movement Location: Head Current Severity: Mild Maximum Severity: Severe Worsened by: Turning head, lying down Relieved by: Sitting and remaining still Associated Symptoms Associated Symptoms: Nausea, intermittent headache. Narrative Narrative: No vomiting, earache, tinnitus, diplopia/vision disturbance or change, loss of consciousness, otorrhea, recent illness, peripheral neurologic symptom. Patient states she has had vertigo in the past, once it was so severe she had a follow-up with otolaryngology and they did an Shazia maneuver, between that and the meclizine she got better. Ever since, when she lies down she occasionally will have a couple seconds of vertigo but nothing major. This started last night at midnight, but became more persistent throughout the day especially when she moves around. She does not have any medication to try. She checked her blood sugar was in the 200s, she states that is not uncommon for her now that she is actually on medications for diabetes. No history of stroke or TIA, does not take any antiplatelet or anticoagulant medications. [facility] Medical History Asthma Cataracts, bilateral Diabetes High cholesterol High triglycerides Hypertension Vitamin deficiency Home Medications amlodipine 5 mg tablet 5 mg PO DAILY 02/14/21 [History Last Taken Unknown] cholecalciferol (vitamin D3) 125 mcg (5,000 unit) capsule 125 mcg PO DAILY 02/14/21 [History Last Taken Unknown] levothyroxine 50 mcg capsule 50 mcg PO DAILY 02/14/21 [History Last Taken Unknown] metformin 500 mg tablet 1,000 mg PO BID tab 02/14/21 [History Last Taken Unknown] rosuvastatin 10 mg tablet 10 mg PO QHS tab 02/14/21 [History Last Taken Unknown] venlafaxine 75 mg tablet 75 mg PO DAILY 02/14/21 [History Last Taken Unknown] meclizine 25 mg PO 4X/DAY PRN PRN #20 tab 03/02/21 [Rx Last Taken Unknown] Allergy/AdvReac Type Severity Reaction Status Date / Time glimepiride [From Amaryl] Allergy Mild rash Verified 02/14/21 15:00 lisinopril Allergy Mild rash Verified 02/14/21 15:00 losartan Allergy Mild rash Verified 02/14/21 15:00 Family History (Updated 02/14/21 @ 15:04 by Bernarda Akbar NP-C) Sister Arthritis Colon cancer, Onset Age: 54 Mother Colon cancer, Onset Age: 71 Diabetes Myocardial infarction, Onset Age: 71 Aunt Uterine cancer Surgical History Hx of appendectomy Social History Smoking Status: Never smoker alcohol intake: never substance use type: does not use ROS ROS ED Constitutional Constitutional ED: Denies chills or fever(s) Eyes Eyes: Denies change in vision or diplopia ENT ENT ED: Denies rhinorrhea or sore throat Cardiovascular Cardiovascular: Denies chest pain or palpitations Respiratory/Chest Respiratory/Chest: Denies cough or dyspnea Gastrointestinal Gastrointestinal: Reports nausea; Denies abdominal pain, diarrhea or vomiting Genitourinary Genitourinary ED: Denies dysuria or hematuria Musculoskeletal Musculoskeletal: Denies back pain or neck pain Integumentary Denies abscess or rash Neurologic Neurologic: Reports as per HPI, headache(s) and vertigo; Denies paresthesias, radicular pain, seizure-like activity, syncope or weakness Psychiatric Psychiatric: Denies anxiety or suicidal thoughts EXAM Physical Exam Const Vital Signs: 03/02/21 18:37 03/02/21 19:21 03/02/21 19:31 Temperature 97.8 F Temperature Source Temporal Pulse Rate 80 80 Respiratory Rate 16 16 Respiratory Pattern Normal Blood Pressure 204/99 H 205/93 H Blood Pressure Mean 134 130 Pulse Ox 95 94 Oxygen Delivery Method Room Air Room Air Positive well nourished and well developed General Appearance ED: well developed and NAD HEENT Reports moist mucous membranes normocephalic and atraumatic Eyes PERRL and EOMs intact bilaterally Neck full ROM and supple Resp normal respiratory effort and clear to auscultation bilaterally Cardio regular rate, regular rhythm and no murmurs GI non-tender and non-distended Auscultation: normoactive bowel sounds Palpation: soft Back/Spine no CVA tenderness General Back: other FROM Extremity normal to inspection General Extremety ED: Negative for edema, pulses abnormal or tenderness General Extremity: Negative for edema or pulses abnormal Neuro oriented x3, CN's II-XII intact bilaterally and no sensory deficits noted Neuro Narrative: Normal mhfmsu-[id number] and hjqp-mi-mnjq bilaterally. NIHSS 0. Sensorium / Orientation: awake and alert Motor Exam: strength 5/5 throughout Skin no rashes or lesions noted and no wounds MDM MDM MDM Narrative Medical decision making narrative: As below work-up is unremarkable. She was given meclizine while we were waiting for the work-up and she feels much better on reevaluation. Her blood pressure was elevated initially. After treatment with labetalol and meclizine and feeling better we rechecked it it is 185/81. Although it is still elevated, I do not think this is a central or stroke in etiology. The symptoms are intermittent, she is triggering and worsening everything significantly with movement and position changes. She does not have any abnormal nystagmus including rotatory or vertical. She has had vertigo in the past. Given this I think she is stable for close outpatient follow-up along with prn meclizine. Advised to follow-up with her PCP as well as ENT if the vertigo is persistent and more severe. She is on amlodipine 5 mg daily, I advised doubling that until she follows up. We discussed reasons to return she is comfortable with this plan. Lab Data Attestation: I reviewed the patient's lab results. Labs: Laboratory Results - last 24 hr 03/02/21 03/02/21 19:15 19:15 WBC 7.2 RBC 4.90 Hgb 14.8 Hct 45.7 MCV 93.3 MCH 30.2 MCHC 32.4 RDW Std Deviation 43.6 RDW Coeff of Sylvester 12.6 Plt Count 211 MPV 10.7 Immature Gran % (Auto) 0.300 Neut % (Auto) 65.3 Lymph % (Auto) 24.3 Charlton % (Auto) 8.1 Eos % (Auto) 1.7 Baso % (Auto) 0.3 Absolute Neuts (auto) 4.7 Absolute Lymphs (auto) 1.74 Nucleated RBC % 0 Sodium 142 Potassium 3.8 Chloride 104 Carbon Dioxide 31.0 Anion Gap 7 BUN 20 H Creatinine 0.75 Estim Creat Clear Calc 67.29 Est GFR (MDRD) Af Amer 100 Est GFR (MDRD) Non-Af 83 BUN/Creatinine Ratio 26.7 H Glucose 186 H Calcium 9.4 Radiography Diagnostic Testing: Radiology Impression Brain CT 03/02/21 18:53 IMPRESSION: Chronic involutional and white matter changes. No acute intracranial process. Individualized dose optimization techniques were used for this CT. at 2006 Reported and signed by: Jose Luis Harris MD Electronically Signed: Jose Luis Harris MD at 20:05 EDT Tel , Service support , Discharge Plan Triage Chief Complaint: Dizziness ED Provider: Live Shannon Dx/Rx/DC Orders Clinical Impression: Peripheral vertigo, Accelerated hypertension Instructions: ED BPV Vertigo, ED High Blood Pressure ..., ED Vertigo, Unspecified Prescriptions: New meclizine [meclizine] 25 MG tablet 25 mg PO 4X/DAY PRN PRN (Reason: Dizziness) Qty: 20 RF: 0 No Action metformin 500 mg tablet 1,000 mg PO BID RF: 0 levothyroxine 50 mcg capsule 50 mcg PO DAILY RF: 0 amlodipine 5 mg tablet 5 mg PO DAILY RF: 0 rosuvastatin 10 mg tablet 10 mg PO QHS RF: 0 venlafaxine 75 mg tablet 75 mg PO DAILY RF: 0 cholecalciferol (vitamin D3) 125 mcg (5,000 unit) capsule 125 mcg PO DAILY RF: 0 Primary Care Provider: Madelin Alberto Referrals: Madelin Alberto DO [Primary Care Provider] - 3-5 Days Carlos Alberto Miner MD [STAFF PHYSICIAN] - 1 Week if not improving (With regards to vertigo) Activity Restrictions/Additional Instructions: Double your amlodipine until you follow-up with your doctor, taking 10 mg once daily (2 tablets at once if you are on 5 mg tablets) Disposition Disposition: Home, self care What to do if you have Problems For any increased pain, shortness of breath, bleeding, nausea or vomiting, chest pain, or any unexpected problems, contact your Primary Care Provider. Call [facility] ([phone]) or report to the closest Emergency Room. Call 911 if necessary. 03/02/212040 <Electronically signed by Live Shannon MD> Cosigner Signature (if applicable): CC: Dr. Madelin Alberto DO Signed Madelin Alberto DO Work Phone: Start: 03-02-2021 End: 03-02-2021 Brain/Head without Contrast Comments: See Note; NOTES: [facility] Imaging Services [address] [place] [address] Brain/Head without Contrast MR#: [id number] Acct: [id number] Name: ERIN LAWRENCE Rep #: [id number] : 1955 F 66 From: Jose Luis Harris MD PCP: Dr. Madelin Alberto DO Status: REG ER Study: Brain/Head without Contrast Date of Exam: 12/18 Exam# [id number] Ordering Dr: Live Shannon MD HISTORY: HTN, headache, vertigo TECHNIQUE: Multiple axial images were obtained of the brain without intravenous contrast. A radiation dose optimization technique was used for this scan. IV Contrast dosage and agent: None. COMPARISON: None FINDINGS: # of images incl. paperwork: 256 PARANASAL SINUSES AND MASTOID AIR CELLS: Clear. INTRACRANIAL HEMORRHAGE: None. BRAIN PARENCHYMA: No CT evidence of stroke. No intracranial masses. There is preservation of the bran/white matter interface. Posterior fossa structures are unremarkable. There is hypoattenuation of the periventricular white matter. Chronic involutional changes are noted. CSF SPACES: Appropriate for age. There is no hydrocephalus. MASS EFFECT: None. CALVARIUM: No acute fracture. CT/Brain/Head without Contrast IMPRESSION: Chronic involutional and white matter changes. No acute intracranial process. Individualized dose optimization techniques were used for this CT. at 2006 Reported and signed by: Jose Luis Harris MD Electronically Signed: Jose Luis Harris MD at 20:05 EDT Tel , Service support , CC: Dr. Live Shannon MD; Dr. Madelin Alberto DO Rental Salesperson: Signed Madelin Alberto DO Work Phone: H/O: section Section As hley Cross ATTENUATOR Comment on above: 1994 H/O: section Section As hley Cross ATTENUATOR Comment on above: 1994 H/O: section Section [place] [facility] Comment on above: 1994 H/O: section [facility] H/O: section Sara Petty [facility] H/O: section Wilfrid Baljeet ATTENUATOR H/O: section Graciela Sanchez [facility] History of appendectomy Appendectomy Ashl ey Cross ATTENUATOR Comment on above: 1996 or 1997 History of appendectomy Appendectomy Ashl ey Cross ATTENUATOR Comment on above: 1996 or 1997 History of appendectomy Appendectomy Jasm in Gravius [facility] Comment on above: 1996 or 1997 History of appendectomy 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 History of appendectomy Katie Ron [facility] History of appendectomy Dako ta Baljeet ATTENUATOR History of appendectomy Rebecca sea Normank FOOD QUALITY TECHNICIAN [facility]ov[facility] FOOD QUALITY TECHNICIAN Wilfrid [place] [facility] Sarah Normank [facility] Plan of Treatment Date Care Activity Detail Author Start: 02-11-2025 Iv infusion therapy/prophylaxis /dx 1st to 1 hr THER/PROPH/DIAG IV INF INIT [facility] Start: 01-22-2025 Procedure [facility] Start: 04-10-2023 Procedure Education [facility] Work Phone: Start: 04-10-2023 Provider Instructions for Treatment [facility] Work Phone: Start: 03-13-2023 Procedure Education [facility]; [facility] Work Phone: Start: 03-13-2023 Provider Instructions for Treatment [facility] Work Phone: Start: 03-01-2023 Blood chemistry [facility] Start: 02-28-2023 Blood chemistry [facility] Start: 02-27-2023 Blood chemistry [facility] Start: 02-27-2023 [facility] Start: 02-26-2023 Patient discharge [facility] Start: 02-26-2023 [facility] Start: 02-24-2023 Referral to service [facility] Start: 02-23-2023 Following clinical pathway protocol [facility] Start: 02-23-2023 Ambulation without limitation [facility] Start: 02-23-2023 Assessment of risk of venous thromboembolism [facility] Start: 02-23-2023 Care regimes management [facility] Start: 02-23-2023 Catheterization of vein [facility] [facility] Start: 02-23-2023 Inhalation therapy procedure [facility] Start: 02-23-2023 Insertion of catheter into peripheral vein [facility] Start: 02-23-2023 Oxygen therapy [facility] Start: 02-23-2023 Providing care according to standard [facility] Start: 02-23-2023 End: 02-23-2023 [facility] Start: 02-23-2023 Admission procedure [facility] Start: 01-23-2023 25 hydroxy includes fractions if performed [facility] Work Phone: Start: 01-23-2023 Urnls dip stick/tablet reagent auto microscopy [facility]; [facility] Work Phone: Start: 01-23-2023 Urine albumin quantitative [facility]; [facility] Work Phone: Start: 01-23-2023 Comprehensive metabolic panel [facility]; [facility] Work Phone: Start: 01-23-2023 Blood count complete auto&auto difrntl wbc [facility]; [facility] Work Phone: Start: 01-23-2023 Lipid panel [facility]; [facility] Work Phone: Start: 01-23-2023 Assay of thyroid stimulating hormone tsh [facility]; [facility] Work Phone: Start: 01-23-2023 Procedure Education [facility]; [facility] Work Phone: Start: 01-23-2023 Provider Instructions for Treatment [facility]; [facility] Work Phone: Start: 10-02-2022 Hemoglobin glycosylated a1c [facility]; [facility] Work Phone: Start: 07-25-2022 25 hydroxy includes fractions if performed [facility]; [facility] Work Phone: Start: 07-25-2022 Urnls dip stick/tablet reagent auto microscopy [facility]; [facility] Work Phone: Start: 07-25-2022 Urine albumin quantitative [facility]; [facility] Work Phone: Start: 07-25-2022 Comprehensive metabolic panel [facility]; [facility] Work Phone: Start: 07-25-2022 Blood count complete auto&auto difrntl wbc [facility]; [facility] Work Phone: Start: 07-25-2022 Lipid panel [facility]; [facility] Work Phone: Start: 07-25-2022 Assay of thyroid stimulating hormone tsh [facility]; [facility] Work Phone: Start: 07-25-2022 Procedure Education [facility]; [facility] Work Phone: Start: 07-25-2022 Provider Instructions for Treatment [facility]; [facility] Work Phone: Start: 01-08-2022 Procedure Education [facility]; [facility] Work Phone: Start: 01-08-2022 Provider Instructions for Treatment [facility]; [facility] Work Phone: Start: 05-12-2021 Procedure Education [facility]; [facility] Work Phone: Start: 05-12-2021 Provider Instructions for Treatment [facility]; [facility] Work Phone: Start: 03-20-2021 25 hydroxy includes fractions if performed [facility]; [facility] Work Phone: Start: 03-20-2021 Procedure Education [facility]; [facility] Work Phone: Start: 03-20-2021 Provider Instructions for Treatment [facility]; [facility] Work Phone: Start: 03-06-2021 25 hydroxy includes fractions if performed [facility]; [facility] Work Phone: Start: 03-06-2021 Creatinine other source [facility]; [facility] Work Phone: Start: 03-06-2021 Urinalysis microscopic only [facility]; [facility] Work Phone: Start: 03-06-2021 Lipid panel [facility]; [facility] Work Phone: Start: 03-06-2021 Comprehensive metabolic panel [facility]; [facility] Work Phone: Start: 03-06-2021 Blood count complete auto&auto difrntl wbc [facility]; [facility] Work Phone: Start: 03-06-2021 Assay of thyroid stimulating hormone tsh [facility]; [facility] Work Phone: Start: 08-24-2020 Procedure Education [facility] Work Phone: Start: 08-24-2020 Provider Instructions for Treatment [facility] Work Phone: Start: 08-24-2020 Iaadiadoo influenza [facility] Work Phone: Start: 04-28-2020 Procedure Education [facility] Work Phone: Start: 04-28-2020 Provider Instructions for Treatment [facility] Work Phone: Start: 04-28-2020 25 hydroxy includes fractions if performed CALCIFEDIOL (23477) [facility] Work Phone: Start: 04-28-2020 TSH Qn TSH (THYROID STIMULATING HORMONE) (15732) [facility] Work Phone: Start: 04-28-2020 Urine albumin quantitative MICROALBUMIN: CREATININE RATIO (41929) AND (85464) [facility] Work Phone: Start: 04-28-2020 Comprehensive metabolic panel METABOLIC PANEL, COMPREHENSIVE (87047) [facility] Work Phone: Start: 04-28-2020 Lipoprotein blood oleksandr numbers & subclasses NMR Profile (13066) [facility] Work Phone: Start: 04-28-2020 Blood count complete auto&auto difrntl wbc CBC with auto diff (03103) [facility] Work Phone: Start: 02-12-2020 Procedure Education [facility] Work Phone: Start: 02-12-2020 Provider Instructions for Treatment [facility] Work Phone: Start: 01-21-2020 Procedure Education [facility] Work Phone: Start: 01-21-2020 Provider Instructions for Treatment [facility] Work Phone: Start: 01-21-2020 Comprehensive metabolic panel [facility] Work Phone: Start: 01-21-2020 Lipoprotein blood oleksandr numbers & subclasses [facility] Work Phone: Start: 05-06-2019 25 hydroxy includes fractions if performed CALCIFIDIOL (72784) VIT D 25 [facility] Work Phone: Start: 05-06-2019 Assay of thyroid stimulating hormone tsh TSH (35224) [facility]; [facility] Work Phone: Start: 05-06-2019 TSH Qn TSH (92079) [facility] Work Phone: Start: 05-06-2019 Urnls dip stick/tablet reagent auto microscopy [facility] Work Phone: Start: 05-06-2019 Urine albumin quantitative [facility] Work Phone: Start: 05-06-2019 Comprehensive metabolic panel METABOLIC PANEL, COMPREHENSIVE (02364) [facility] Work Phone: Start: 05-06-2019 Lipoprotein blood oleksandr numbers & subclasses NMR Profile (27451) [facility] Work Phone: Start: 05-06-2019 Procedure Education [facility] Work Phone: Start: 05-06-2019 Provider Instructions for Treatment [facility] Work Phone: Start: 01-28-2019 Provider Instructions for Treatment [facility] Work Phone: Start: 08-20-2018 Procedure Education [facility] Work Phone: Start: 08-20-2018 Provider Instructions for Treatment [facility] Work Phone: Start: 07-02-2018 25 hydroxy includes fractions if performed CALCIFIDIOL (49362) VIT D 25 [facility] Work Phone: Start: 07-02-2018 Thyrotropin Qn TSH (98538) [facility] Work Phone: Start: 07-02-2018 Urnls dip stick/tablet reagent auto microscopy [facility] Work Phone: Start: 07-02-2018 Urine albumin quantitative [facility] Work Phone: Start: 07-02-2018 Comprehensive metabolic panel METABOLIC PANEL, COMPREHENSIVE (43947) [facility] Work Phone: Start: 07-02-2018 Lipid panel LIPID PANEL (16232) [facility] Work Phone: Start: 07-02-2018 Blood count complete auto&auto difrntl wbc CBC W/AUTO DIFF WBC (77337) [facility] Work Phone: Start: 07-02-2018 Provider Instructions for Treatment [facility] Work Phone: Start: 04-30-2018 Provider Instructions for Treatment [facility] Work Phone: Start: 03-26-2018 Procedure Education [facility] Work Phone: Start: 03-21-2018 Provider Instructions for Treatment [facility] Work Phone: Start: 03-05-2018 Assay of thyroid stimulating hormone tsh [facility]; [facility] Work Phone: Start: 03-05-2018 Thyrotropin Qn TSH (77914) [facility] Work Phone: Start: 03-05-2018 Assay of free thyroxine [facility]; [facility] Work Phone: Start: 03-05-2018 T4 free mass conc T4, FREE (THYROXINE) (44648) [facility] Work Phone: Start: 03-05-2018 Assay of triiodothyronine t3 free [facility]; [facility] Work Phone: Start: 03-05-2018 T3 free mass conc T3, FREE (TRIDOTHYRONINE) (69401) [facility] Work Phone: Start: 03-05-2018 Basic metabolic panel calcium total [facility] Work Phone: Start: 03-05-2018 25 hydroxy includes fractions if performed [facility] Work Phone: Start: 03-05-2018 Lipid panel [facility] Work Phone: Start: 03-05-2018 Hepatic function panel [facility] Work Phone: Start: 03-05-2018 Provider Instructions for Treatment [facility] Work Phone: Start: 01-09-2018 Procedure Education [facility] Work Phone: Start: 01-09-2018 Provider Instructions for Treatment [facility] Work Phone: Start: 12-02-2017 Procedure Education [facility] Work Phone: Start: 12-02-2017 Provider Instructions for Treatment [facility] Work Phone: Start: 11-05-2017 Procedure Education [facility] Work Phone: Start: 11-05-2017 Provider Instructions for Treatment [facility] Work Phone: Start: 09-20-2017 Procedure Education [facility] Work Phone: Start: 07-31-2017 Patient Education [facility] Work Phone: Start: 07-31-2017 Provider Instructions for Treatment [facility] Work Phone: Start: 04-22-2017 Assay of thyroid stimulating hormone tsh [facility]; [facility] Work Phone: Start: 04-22-2017 Thyrotropin Qn TSH (01736) [facility] Work Phone: Start: 04-22-2017 Urnls dip stick/tablet reagent auto microscopy [facility] Work Phone: Start: 04-22-2017 Urine albumin quantitative [facility] Work Phone: Start: 04-22-2017 Comprehensive metabolic panel [facility] Work Phone: Start: 04-22-2017 Lipid panel [facility] Work Phone: Start: 04-22-2017 Blood count complete auto&auto difrntl wbc [facility] Work Phone: Start: 04-22-2017 Procedure Education [facility] Work Phone: Start: 04-22-2017 Provider Instructions for Treatment [facility] Work Phone: Start: 08-17-2016 Procedure Education [facility] Work Phone: Start: 08-17-2016 Provider Instructions for Treatment [facility] Work Phone: Start: 09-15-2015 Provider Instructions for Treatment [facility] Work Phone: Start: 08-03-2015 Provider Instructions for Treatment [facility] Work Phone: Start: 07-01-2015 Procedure Education [facility] Work Phone: Start: 07-01-2015 Provider Instructions for Treatment [facility] Work Phone: Start: 07-01-2015 Urnls dip stick/tablet reagent auto microscopy [facility] Work Phone: Start: 07-01-2015 Urine albumin quantitative [facility] Work Phone: Start: 02-16-2015 Patient Education [facility] Work Phone: Start: 02-16-2015 Procedure Education [facility] Work Phone: Start: 02-16-2015 Provider Instructions for Treatment [facility] Work Phone: Start: 02-16-2015 Assay of thyroid stimulating hormone tsh [facility]; [facility] Work Phone: Start: 02-16-2015 Thyrotropin Qn TSH (13183) [facility] Work Phone: Start: 02-16-2015 Lipid panel [facility] Work Phone: Start: 01-27-2014 Provider Instructions for Treatment [facility] Work Phone: Start: 01-27-2014 Hpv, dna, amp probe [facility] Work Phone: Start: 01-27-2014 Blood occult fecal hgb deter ia qual feces 1-3 [facility] Work Phone: Start: 01-27-2014 Cytp cerv/vag auto thin layer prep mnl screen [facility] Work Phone: Start: 08-06-2012 Patient Education [facility] Work Phone: Start: 06-30-2012 Patient Education [facility] Work Phone: Start: 06-30-2012 Provider Instructions for Treatment [facility] Work Phone: Start: 02-01-2012 Provider Instructions for Treatment [facility] Work Phone: Start: 06-14-2010 Glucose [Mass/Vol] Glucose, PP/2 Hour (05968) [facility] Work Phone: Start: 06-14-2010 Glucose quantitative blood xcpt reagent strip [facility] Work Phone: Start: 06-14-2010 Assay of thyroid stimulating hormone tsh [facility]; [facility] Work Phone: Start: 06-14-2010 Thyrotropin Qn TSH (09238) [facility] Work Phone: Start: 06-14-2010 Lipid panel [facility] Work Phone: Start: 06-14-2010 25 hydroxy includes fractions if performed [facility] Work Phone: Start: 06-14-2010 Provider Instructions for Treatment [facility] Work Phone: Start: 11-30-2009 Provider Instructions for Treatment [facility] Work Phone: Start: 11-30-2009 25 hydroxy includes fractions if performed [facility] Work Phone: Comment on above: do in 3 months Start: 11-30-2009 Assay of parathormone [facility] Work Phone: Start: 11-30-2009 Calcium mass conc CALCIUM SERUM (25880) [facility] Work Phone: Start: 11-30-2009 Calcium total [facility]; [facility] Work Phone: Start: 11-23-2009 Provider Instructions for Treatment [facility] Work Phone: Start: 11-23-2009 25 hydroxy includes fractions if performed [facility] Work Phone: Start: 07-11-2009 Assay of thyroid stimulating hormone tsh [facility]; [facility] Work Phone: Start: 07-11-2009 Thyrotropin Qn TSH (THYROID STIMULATING HORMONE) (47271) [facility] Work Phone: Start: 07-11-2009 Lipid panel [facility] Work Phone: Start: 07-11-2009 Provider Instructions for Treatment [facility] Work Phone: Start: 02-14-2009 Glucose [Mass/Vol] Glucose, PP/2 Hour (31163) [facility] Work Phone: Start: 02-14-2009 Glucose quantitative blood xcpt reagent strip [facility] Work Phone: Start: 02-14-2009 Assay of thyroid stimulating hormone tsh [facility]; [facility] Work Phone: Start: 02-14-2009 Thyrotropin Qn TSH (93627) [facility] Work Phone: Start: 02-14-2009 Lipid panel [facility] Work Phone: Start: 05-27-2008 Sedimentation rate rbc non-automated [facility] Work Phone: Start: 05-27-2008 C-reactive protein [facility]; [facility] Work Phone: Start: 05-27-2008 CRP mass conc C-REACTIVE PROTEIN (40445) [facility] Work Phone: Start: 05-27-2008 Antinuclear antibodies yolis [facility]; [facility] Work Phone: Start: 05-27-2008 Nuclear Ab IF titer (S) YOLIS (ANTINUCLEAR ANTIBODY) (33702) [facility] Work Phone: Start: 05-27-2008 Comprehensive metabolic panel [facility] Work Phone: Start: 05-27-2008 Blood count manual cell count each [facility] Work Phone: Start: 05-19-2008 Provider Instructions for Treatment [facility] Work Phone: Start: 05-19-2008 Urnls dip stick/tablet rgnt non-auto w/o micrscp [facility] Work Phone: Start: 01-07-2008 Provider Instructions for Treatment [facility] Work Phone: Start: 01-07-2008 Lipid panel [facility] Work Phone: Comment on above: DO IN 6 MONTHS Start: 12-31-2007 Provider Instructions for Treatment [facility] Work Phone: Start: 12-16-2007 Provider Instructions for Treatment [facility] Work Phone: Start: 12-16-2007 Blood occult fecal hgb deter ia qual feces 1-3 [facility] Work Phone: Start: 12-16-2007 Glucose [Mass/Vol] Glucose, PP/2 Hour (70831) [facility] Work Phone: Start: 12-16-2007 Glucose quantitative blood xcpt reagent strip [facility] Work Phone: Start: 12-16-2007 Hepatic function panel [facility] Work Phone: Start: 12-16-2007 Lipid panel [facility] Work Phone: Start: 12-16-2007 Assay of thyroid stimulating hormone tsh [facility]; [facility] Work Phone: Start: 12-16-2007 Thyrotropin Qn TSH (53875) [facility] Work Phone: Start: 08-19-2007 Patient Education [facility] Work Phone: Start: 08-19-2007 Provider Instructions for Treatment [facility] Work Phone: Start: 08-19-2007 Cul bact xcpt urine blood/stool aerobic isol [facility] Work Phone: Comment on above: done km Start: 02-19-2007 Lipid panel [facility] Work Phone: Start: 02-19-2007 Glucose [Mass/Vol] Glucose, PP/2 Hour (95022) [facility] Work Phone: Start: 02-19-2007 Glucose quantitative blood xcpt reagent strip [facility] Work Phone: Start: 02-19-2007 Provider Instructions for Treatment [facility] Work Phone: Bacteria identified in Sputum by Respiratory culture [facility] Hemoglobin A1c/Hemoglobin.total in Blood [facility] Patient referral [facility] Work Phone: [facility] Work Phone: [facility] Work Phone: [facility] Work Phone[facility] Work Phone: [facility] Work Phone: [facility] Work Phone: [facility] Work Phone: [facility] Work Phone: [facility] Work Phone: [facility] Work Phone: [facility] Work Phone: [facility] Work Phone: [facility] Work Phone[facility] Work Phone[facility] Work Phone: [facility] Work Phone: [facility] Work Phone: [facility] Work Phone: [facility] Work Phone: INJECTION, METHYLPREDNISOLONE SODIUM SUCCINATE, UP TO 125 MG Ordered: 26-Mar-2018 Erin Sanford DO Pending [facility] Work Phone: [facility] Work Phone: [facility] Work Phone: [facility] Work Phone: [facility] Work Phone: [facility] Work Phone[facility] Work Phone[facility] Work Phone: [facility]; [facility] Work Phone: [facility]; [facility] Work Phone: [facility]; [facility] Work Phone: [facility]; [facility] Work Phone: [facility]; [facility] Work Phone: [facility]; [facility] Work Phone: [facility]; [facility] Work Phone: [facility]; [facility] Work Phone: Payers Date Payer Category Payer Self-pay [id number] 2024 Medicare [id number] 2020 Medicare [id number] 2020 Private Health Insurance [facility] [id number] 1955 Unknown [id number] 2.16.84 [id number] Unknown Unknown [id number] Unknown [id number] Unknown [id number] 2.16.8 [id number] Unknown [id number] 2.16.8 [id number] Unknown [id number] 2.16.8 [id number] Unknown [id number] 2.16.8 [id number] Unknown [id number] 2.16.8 [id number] Unknown [id number] 2.16.8 [id number] Unknown [id number] 2.16.8 [id number] Unknown [id number] 2.16.8 [id number] Unknown [id number] 2.16.8 [id number] Unknown [id number] 2.16.8 [id number] Unknown [id number] 2.16.8 [id number] Social History Date Type Detail Facility Alcohol Use Former smoker [facility] Work Phone: Comment on above: Occasional alcohol u se 2-3 glasses 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 [facility] Work Phone: Tobacco use: [facility] use: [facility] Work Phone: Start: 04-26-2022 End: 11-14-2023 Tobacco smoking status NHIS Unknown if ever smoked [facility] Start: 1955 Sex Assigned At Female W [facility] Start: 11-14-2023 Tobacco smoking stat us NHIS Never smoked tobacco (finding) [facility] Start: 01-26-2025 Sex Female (finding) [facility] Medical Equipment Procedure Code Equipment Code Equipment Origin al Text Equipment Identifier Dates Pen [place] 32G X 6 MM Miscellaneous 1 (one) needle weekly as directed for 0 days Quantity: 30 {QS} Refills: 3 Ordered: 20-Mar-2021 Slarb ATTENUATOR, Krissy Start : 20-Mar-2021 Active Start: 03-20-2021 Pen [place] 32G X 6 MM Miscellaneous 1 (one) needle weekly as directed for 0 days Quantity: 30 {QS} Refills: 3 Ordered: 20-Mar-2021 Slarb ATTENUATOR, Krissy Start : 20-Mar-2021 Active Start: 03-20-2021 Pen [place] 32G X 6 MM Miscellaneous 1 (one) needle weekly as directed for 0 days Quantity: 30 {QS} Refills: 3 Ordered: 20-Mar-2021 Slarb ATTENUATOR, Krissy Start : 20-Mar-2021 Active Start: 03-20-2021 Pen [place] 32G X 6 MM Miscellaneous 1 (one) needle weekly as directed for 0 days Quantity: 30 {QS} Refills: 3 Ordered: 20-Mar-2021 [employer] FOOD QUALITY TECHNICIAN, Tracy Start : 20-Mar-2021 Active Start: 03-20-2021 Pen [place] 32G X 6 MM Miscellaneous 1 (one) needle weekly as directed for 0 days Quantity: 30 {QS} Refills: 3 Ordered: 20-Mar-2021 [employer] FOOD QUALITY TECHNICIAN, Tracy Start : 20-Mar-2021 Active Start: 03-20-2021 Insulin Syringe- Needle U-100 (Bd Insulin Syringe Ultra-Fine) 0.3 mL 31 gauge x 5/16 syringe Start: 05-21-2022 Insulin Syringe- Needle U-100 (Bd Insulin Syringe Ultra-Fine) 0.3 mL 31 gauge x 5/16 syringe Start: 02-23-2023 Insulin Syringe- Needle U-100 (Bd Insulin Syringe Ultra-Fine) 0.3 mL 31 gauge x 5/16 syringe Start: 05-21-2022 End: 02-23-2023 Insulin Syringe- Needle U-100 (Bd Insulin Syringe Ultra-Fine) 0.3 mL 31 gauge x 5/16 syringe Start: 06-05-2023 Insulin Syringe- Needle U-100 (Bd Insulin Syringe Ultra-Fine) 0.3 mL 31 gauge x 5/16 syringe Start: 02-23-2023 End: 06-05-2023 Insulin Syringe- Needle U-100 (Bd Insulin Syringe Ultra-Fine) 0.3 mL 31 gauge x 5/16 syringe Start: 05-21-2022 End: 02-23-2023 Insulin Syringe- Needle U-100 (Bd Insulin Syringe Ultra-Fine) 0.3 mL 31 gauge x 5/16 syringe Start: 06-05-2023 Insulin Syringe- Needle U-100 (Bd Insulin Syringe Ultra-Fine) 0.3 mL 31 gauge x 5/16 syringe Start: 02-23-2023 End: 06-05-2023 Insulin Syringe- Needle U-100 (Bd Insulin Syringe Ultra-Fine) 0.3 mL 31 gauge x 5/16 syringe Start: 05-21-2022 End: 02-23-2023 Insulin Syringe- Needle U-100 (Bd Insulin Syringe Ultra-Fine) 0.3 mL 31 gauge x 5/16 syringe Start: 06-05-2023 Insulin Syringe- Needle U-100 (Bd Insulin Syringe Ultra-Fine) 0.3 mL 31 gauge x 5/16 syringe Start: 02-23-2023 End: 06-05-2023 Insulin Syringe- Needle U-100 (Bd Insulin Syringe Ultra-Fine) 0.3 mL 31 gauge x 5/16 syringe Start: 05-21-2022 End: 02-23-2023 Insulin Syringe- Needle U-100 (Bd Insulin Syringe Ultra-Fine) 0.3 mL 31 gauge x 5/16 syringe Start: 06-05-2023 Insulin Syringe- Needle U-100 (Bd Insulin Syringe Ultra-Fine) 0.3 mL 31 gauge x 5/16 syringe Start: 02-23-2023 End: 06-05-2023 Insulin Syringe- Needle U-100 (Bd Insulin Syringe Ultra-Fine) 0.3 mL 31 gauge x 5/16 syringe Start: 05-21-2022 End: 02-23-2023 Insulin Syringe- Needle U-100 (Bd Insulin Syringe Ultra-Fine) 0.3 mL 31 gauge x 5/16 syringe Start: 06-05-2023 Insulin Syringe- Needle U-100 (Bd Insulin Syringe Ultra-Fine) 0.3 mL 31 gauge x 5/16 syringe Start: 02-23-2023 End: 06-05-2023 Insulin Syringe- Needle U-100 (Bd Insulin Syringe Ultra-Fine) 0.3 mL 31 gauge x 5/16 syringe Start: 05-21-2022 End: 02-23-2023 Insulin Syringe- Needle U-100 (Bd Insulin Syringe Ultra-Fine) 0.3 mL 31 gauge x 5/16 syringe Start: 06-05-2023 Insulin Syringe- Needle U-100 (Bd Insulin Syringe Ultra-Fine) 0.3 mL 31 gauge x 5/16 syringe Start: 02-23-2023 End: 06-05-2023 Insulin Syringe- Needle U-100 (Bd Insulin Syringe Ultra-Fine) 0.3 mL 31 gauge x 5/16 syringe Start: 05-21-2022 End: 02-23-2023 Insulin Syringe- Needle U-100 (Bd Insulin Syringe Ultra-Fine) 0.3 mL 31 gauge x 5/16 syringe Start: 07-02-2024 Insulin Syringe- Needle U-100 (Bd Insulin Syringe Ultra-Fine) 0.3 mL 31 gauge x 5/16 syringe Start: 02-23-2023 End: 06-05-2023 Insulin Syringe- Needle U-100 (Bd Insulin Syringe Ultra-Fine) 0.3 mL 31 gauge x 5/16 syringe Start: 05-21-2022 End: 02-23-2023 Insulin Syringe- Needle U-100 (Bd Insulin Syringe Ultra-Fine) 0.3 mL 31 gauge x 5/16 syringe Start: 06-05-2023 End: 07-02-2024 Insulin Syringe- Needle U-100 (Bd Insulin Syringe Ultra-Fine) 0.3 mL 31 gauge x 5/16 syringe Start: 07-02-2024 Insulin Syringe- Needle U-100 (Bd Insulin Syringe Ultra-Fine) 0.3 mL 31 gauge x 5/16 syringe Start: 02-23-2023 End: 06-05-2023 Insulin Syringe- Needle U-100 (Bd Insulin Syringe Ultra-Fine) 0.3 mL 31 gauge x 5/16 syringe Start: 05-21-2022 End: 02-23-2023 Insulin Syringe- Needle U-100 (Bd Insulin Syringe Ultra-Fine) 0.3 mL 31 gauge x 5/16 syringe Start: 06-05-2023 End: 07-02-2024 Insulin Syringe- Needle U-100 (Bd Insulin Syringe Ultra-Fine) 0.3 mL 31 gauge x 5/16 syringe Start: 07-02-2024 Insulin Syringe- Needle U-100 (Bd Insulin Syringe Ultra-Fine) 0.3 mL 31 gauge x 5/16 syringe Start: 02-23-2023 End: 06-05-2023 Insulin Syringe- Needle U-100 (Bd Insulin Syringe Ultra-Fine) 0.3 mL 31 gauge x 5/16 syringe Start: 05-21-2022 End: 02-23-2023 Insulin Syringe- Needle U-100 (Bd Insulin Syringe Ultra-Fine) 0.3 mL 31 gauge x 5/16 syringe Start: 06-05-2023 End: 07-02-2024 Insulin Syringe- Needle U-100 (Bd Insulin Syringe Ultra-Fine) 0.3 mL 31 gauge x 5/16 syringe Start: 07-02-2024 Insulin Syringe- Needle U-100 (Bd Insulin Syringe Ultra-Fine) 0.3 mL 31 gauge x 5/16 syringe Start: 02-23-2023 End: 06-05-2023 Insulin Syringe- Needle U-100 (Bd Insulin Syringe Ultra-Fine) 0.3 mL 31 gauge x 5/16 syringe Start: 05-21-2022 End: 02-23-2023 Insulin Syringe- Needle U-100 (Bd Insulin Syringe Ultra-Fine) 0.3 mL 31 gauge x 5/16 syringe Start: 06-05-2023 End: 07-02-2024 Insulin Syringe- Needle U-100 (Bd Insulin Syringe Ultra-Fine) 0.3 mL 31 gauge x 5/16 syringe Start: 07-02-2024 Pen Needle, Diab etic 32 gauge x 5/32 needle Start: 05-21-2025 Insulin Syringe- Needle U-100 (Bd Insulin Syringe Ultra-Fine) 0.3 mL 31 gauge x 5/16 syringe Start: 02-23-2023 End: 06-05-2023 Insulin Syringe- Needle U-100 (Bd Insulin Syringe Ultra-Fine) 0.3 mL 31 gauge x 5/16 syringe Start: 05-21-2022 End: 02-23-2023 Insulin Syringe- Needle U-100 (Bd Insulin Syringe Ultra-Fine) 0.3 mL 31 gauge x 5/16 syringe Start: 06-05-2023 End: 07-02-2024 Goals Date Patient Goal Desired Activity /State Functional Status Date Assessment Result Facility 02-26-2023 Functional status Ambulates;Bath room Privilege [facility] Work Phone: 03-06-2021 LP-IR Score 89 [facility]; [facility] Work Phone: Comment on above: INSULIN RESISTANCE M CHINEDUDESMOND <--Insulin Sensitive Insulin Resistant--> Percentile in Reference PopulationInsulin Resistance ScoreLP-IR Score Low 25th 50th 75th High <27 27 45 63 >63LP-IR Score is inaccurate if patient is non-fasting. .The LP-IR score is a laboratory developed index that has beenassociated with insulin resistance and diabetes risk and should beused as one component of a physician's clinical assessment. Test(s) 086576-ODF-L ; 293751-XWP-E; 041680-Gmjtyrkxitwfq; 793512-Zncptytbhuf, Total; 290164-OVQ-V (Total); 972490-Fphiw LDL-P; 841282-FAS Size; 705060-SN-UQ Scorewas developed and its performance characteristics determinedby [employer]. It has not been cleared or approved by the Foodand Drug Administration.PATIENT WAS FASTINGPERFORMED BY: BN [facility] [address] [id number] BY: [facility] Tnhppn3353 [facility] [id number] Information: QUINTON MCCORMICK [id number] 08-16-2020 LP-IR Score 75 [facility] Work Phone: Comment on above: INSULIN RESISTANCE M ARKER <--Insulin Sensitive Insulin Resistant--> Percentile in Reference PopulationInsulin Resistance ScoreLP-IR Score Low 25th 50th 75th High <27 27 45 63 >63LP-IR Score is inaccurate if patient is non-fasting. .The LP-IR score is a laboratory developed index that has beenassociated with insulin resistance and diabetes risk and should beused as one component of a physician's clinical assessment. Test(s) 769050-KXW-C ; 519292-BKI-B; 054226-Ejispsmvsxwbi; 918423-Qqlmucrigjb, Total; 452163-TZV-U (Total); 060597-Oxfwc LDL-P; 433910-XLI Size; 403019-YI-MV Scorewas developed and its performance characteristics determinedby [employer]. It has not been cleared or approved by the Foodand Drug Administration.PATIENT WAS FASTINGPERFORMED BY: BN [facility] [id number] BY: CB [facility] CenterPctznu5890 [facility] [id number] Mental Status Date Assessment Result Facility 11-28-2023 Cognitive function Voice/Name [facility] Work Phone: 02-26-2023 Cognitive function Voice/Name [facility] Work Phone: Clinical Notes 03-02-2021 to 03-22-2025 Note Date & Type Note Facility 03-22-2025 Radiology Diagnostic study note [facility] Imaging Services [address], [place] [id number] Chest without Contrast MR#: [id number] Acct: [id number] Name: ERIN LAWRENCE Rep #: [id number] : 1955 F 70 From: Jack Panchal MD PCP: Dr. Madelin Alberto, DO Status: RE G CLI Study:Chest without Contrast Date of Exam: 03/22/25 Exam# [id number] Ordering Dr: Lai Mancia MD PROCEDURE: CHEST WITHOUT CONTRAST 03/22/2025 REASON FOR EXAM: HYPOXEMIA Shortness of breath/cough. TECHNIQUE: Chest CT without contrast. Coronal and Sagittal reconstruction series were provided. One or more dose reduction techniques were used (e.g., Automated exposure control, adjustment of the mA and/or kV according to patient size, use of iterative reconstruction technique RADIATION DOSE SUMMARY: CTDlvol: 10.63 mGy DLP: 356.07 mGycm COMPARISON: None FINDINGS: Hardware: None Lymph nodes: Small fat containing bilateral axillary lymph nodes. Small benign-appearing mediastinal lymph nodes. No hilar lymph nodes. Heart and Vasculature: The heart is nonenlarged. Coronary Artery Calcifications: Present Lungs and Airways: There is evidence of atelectasis and volume loss in the medial aspect of the right middle lobe. No suspicious pulmonary nodules are seen. Pleura: No evidence of pleural effusion. Upper Abdomen: Unremarkable. Bones: Degenerative changes of the thoracic spine. CT/Chest without Contrast IMPRESSION: Coronary artery calcification (CAC) is is present Atelectasis and volume loss in the anterior medial aspect of the right middle lobe. Reading Location: [id number] CC: Dr. Madelin Alberto DO; Dr. 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 [facility] 02-08-2025 Evaluation note Diagnosis Onset Date Resolution Benign hypertension chronic January 282024 9:41am Diabetes chronic February 08, 2025 9:41am Hypothyroid chronic February 08 9:41am Mixed hyperlipidemia chronic February 08, 2025 9:41am Osteoporosis chronic February 08 9:41am Overweight (BMI 25.0-29.9) chronic February 08, 2025 9:41am Vitamin D deficiency chronic February 08, 2025 9:41am [facility] Work Phone: 1(809) 646-216402-10-2025 Evaluation note* Diagnosis Onset Date Resolution Status Admit Date Benign hypertension chronic Febru 2024 9:20am Diabetes chronic November 09, 2024 9:20am High cholesterol chronic November 09, 2024 9:20am Hypothyroid chronic October 9:20am Obesity (BMI 30.0-34.9) chronic F ebru2024 9:20am Osteoporosis chronic October 9:20am [facility] Work Phone: 1(615) 695-479902-10-2025 Evaluation note* Diagnosis Onset Date Resolution Status Admit Date Benign hypertension chronic Febru nino , 2025 9:20am Diabetes chronic November 09, 2024 9:20am High cholesterol chronic November 09, 2024 9:20am Hypothyroid chronic October 9:20am Obesity (BMI 30.0-34.9) chronic F ebru2024 9:20am Osteoporosis chronic October 9:20am Benign hypertension chronic January 282024 9:41am Diabetes chronic February 08, 2025 9:41am Hypothyroid chronic February 08 9:41am Mixed hyperlipidemia chronic February 08, 2025 9:41am Osteoporosis chronic February 08 9:41am Overweight (BMI 25.0-29.9) chronic February 08, 2025 9:41am Vitamin D deficiency chronic February 08, 2025 9:41am [facility] Work Phone: 1([phone]) 170-319005-30-[address] Benitez [facility] February 26, 2023 1:39pm Note Date/Time February 26, 2023 1:35p m [facility] Medical Records Department [address] [place] [address] Discharge Summary 02/26/23 1333 MR#: [id number] Acct: [id number] Name: ERIN LAWRENCE Rep #:[id number] : 1955 68 From: Simone Benitez MD PCP: Dr. Madelin Alberto DO Status:[facility] Location: [address] Providers Date of Admission: 02/23/23 Date of Discharge: 02/26/23 Primary Care Physician: Dr. Madelin Alberto, Reason For Visit: RIGHT SIDED PNEUMONIA, HYPOXIA Diagnosis Discharge Diagnosis (1) Right lower lobe pneumonia: Status: Acute Code(s): J18.9 - Pneumonia, unspecified organism Plan Patient is a 68-year-old female admitted with fatigue cough. Imaging studies did show Right middle and lower lobe and left lower lobe. Admitted to regular nursing floor for further management 1. Acute hypoxia ? Secondary to multifocal pneumonia imaging studies did show Right middle and lower lobe and left lower lobe. Admitted to regular nursing floor managed with supplemental oxygen as well as Rocephin and azithromycin ? Patient to be assessed for home oxygen with a 6-minute walk time ?patient did qualify for home oxygen was discharged home with 2 L at rest patient will need portability since he is active both at home as well as in the community 2. Hypothyroidism - Patient is on levothyroxine home dose continued 3. Diabetes mellitus type II -Patient is on metformin held placed on, Accu-Cheks a.c. and at bedtime and covered with sliding scale insulin 4. Hypertension - Blood pressure controlled, home medications continued with dose adjustment as needed 5. Dyslipidemia -Patient is on statin therapy, continued at home dose 6. Depression ? Patient is on Effexor Time spent in the patient's overall evaluation,decision-making process, review of diagnostic data, adjustment of management, discussion with other providers, nursing nursing and ancillary staff involved in patient's care documentation, 35 Minutes Medications at Discharge Home Medications cholecalciferol (vitamin D3) 125 mcg (5,000 unit) capsule 125 mcg PO DAILY Checkwith primary doctor 02/14/21 levothyroxine 50 mcg capsule 50 mcg PO DAILY Check with primary doctor 02/14/21 rosuvastatin 10 mg tablet 10 mg PO QHS Check with primary doctor 02/14/21 venlafaxine 75 mg tablet 75 mg PO DAILY Check with primary doctor 02/14/21 amlodipine 10 mg tablet 10 mg PO DAILY Check with primary doctor 02/23/23 hydrochlorothiazide 12.5 mg tablet 12.5 mg PO DAILY Check with primary doctor 02/23/23 insulin syringe-needle U-100 0.3 mL 31 gauge x 5/16 (BD Insulin Syringe Ultra- Fine) 02/23/23 metformin 500 mg tablet 1,000 mg PO BID Check with primary doctor 02/23/23 azithromycin 500 mg tablet 500 mg PO DAILY 3 days #3 tabs 02/26/23 cefdinir 300 mg capsule 300 mg PO BID #10 caps 02/26/23 Hospital Course Summary of Care Provided Minutes Spent on Discharge: 35 Physical Exam Narrative GENERAL: cooperative HEENT: Atraumatic; normocephalic EYES; Anicteric, Normal Conjunctiva NECK; supple, normal thyroid, RESPIRATORY: Diminished to auscultation CARDIOVASCULAR: Regular S1 S2, GI: soft, normoactive bowel sounds, : No Renal angle tenderness; EXTREMITIES: No edema, no clubbing, MUSCULOSKELETAL: no muscle wasting NEURO: Awake; no lateralizing signs. SKIN: No Rash PSYCH; Flat affect Weight / BMI Weight Weight: 83.915 kg Body Mass Index (BMI) 30.7 ABG / Lab / Microbiology Data Result Diagrams: 02/24/23 05:40 02/23/23 09:45 Laboratory: Laboratory Results - last 24 hr 02/25/23 10:37: POC Glucose 198 H 02/25/23 17:07: POC Glucose 202 H 02/25/23 21:07: POC Glucose 218 H 02/26/23 06:01: POC Glucose 183 H 02/26/23 11:47: POC Glucose 189 H Microbiology: Microbiology 02/23/23 13:17 Mucosa - Nasopharyngeal Respiratory Panel (PCR) - Final 02/23/23 17:05 Urine, Clean Catch Streptococcus pneumoniae Antigen (M - Final 02/23/23 17:05 Urine, Clean Catch Legionella Antigen - Final 02/23/23 16:28 Nasal Secretion SARS-CoV-2 Antigen (Rapid) - Final D/C Instructions Discharge Diet: 1800 Calorie Control Diet Meaningful Use Info Meaningful Use Diagnoses (Choose all that apply): None applicable Discharge Plan Admission Admit Date/Time: 02/23/23 11:36 Attending Provider: Simone Benitez Primary Care Provider: Madelin Alberto Consulting Providers: Misha Rosario Discharge Orders/Prescriptions Prescriptions: New azithromycin 500 mg tablet 500 mg PO DAILY 3 Days Qty: 3 0RF cefdinir 300 mg capsule 300 mg PO BID Qty: 10 0RF Continued levothyroxine 50 mcg capsule 50 mcg PO DAILY rosuvastatin 10 mg tablet 10 mg PO QHS venlafaxine 75 mg tablet 75 mg PO DAILY cholecalciferol (vitamin D3) 125 mcg (5,000 unit) capsule 125 mcg PO DAILY metformin 500 mg tablet 1,000 mg PO BID amlodipine 10 mg tablet 10 mg PO DAILY (DME) insulin syringe-needle U-100 [BD Insulin Syringe Ultra-Fine] 0.3 mL 31 gauge x 5/16 syringe See Rx Instructions .ROUTE Rx Instructions: BID hydrochlorothiazide 12.5 mg tablet 12.5 mg PO DAILY Referrals / Follow Up: Madelin Alberto DO [Primary Care Provider] - Disposition Disposition (needs filled in before D/C Order can be placed): Home, Self Care Charges/Coding Visit Charges Inpatient E&M: 75965 Disch Hosp >30min 02/26/23 1339 <Electronically signed by Simone Benitez MD> Cosigner Signature (if applicable): CC: Dr. Simone Benitez MD; Dr. Madelin Alberto, DO~ Signed [facility] Work Phone: 1(275) 335-690005-30-[address] Benitez [facility] February 26, 2023 8:44am Note Date/Time February 26, 2023 7:27a m [facility] Medical Records Department [address] [place] [address] Progress Note - Hospitalist 02/26/23 0718 MR#: [id number] Acct: [id number] Name: ERIN LAWRENCE Rep #:[id number] : 1955 68 From: Simone Benitez MD PCP: Dr. Madelin Alberto DO Status:AD M IN Location: [place] [address] Reason for Visit Reason for Visit: Diagnoses Pneumonia, unspecified organism (02/23/23) Subjective Subjective Patient is a 68-year-old female admitted with fatigue cough. Imaging studies did show Right middle and lower lobe and left lower lobe. Admitted to regular nursing floor for further management Objective Data Objective Data Vital Signs: Vital Signs Temp Pulse Resp BP Pulse Ox O2 Del Method O2 Flow Rate 98.6 F 78 18 148/71 H 94 Nasal Cannula 4 02/26/23 03:05 02/26/23 03:05 02/26/23 03:05 02/26/23 03:05 02/26/23 03:05 02/26/23 03:09 02/26/23 03:09 Oxygen Flow Rate (L/min) 4 Oxygen Delivery Method Nasal Cannula Weight: 83.915 kg Body Mass Index (BMI) 30.7 Intake & Output: Intake and Output for Last 24 Hours 02/24/23 02/25/23 02/26/23 23:59 23:59 23:59 Intake Total 1505 / 1505 905 / 1025 240 / 240 Output Total 0 / 0 Balance 1505 / 1505 905 / 1025 240 / 240 Lab / Micro Data Result Diagrams: 02/24/23 05:40 02/23/23 09:45 Labs: Laboratory Results - last 24 hr 02/25/23 10:37: POC Glucose 198 H 02/25/23 17:07: POC Glucose 202 H 02/25/23 21:07: POC Glucose 218 H 02/26/23 06:01: POC Glucose 183 H Micro: Microbiology 02/23/23 13:17 Mucosa - Nasopharyngeal Respiratory Panel (PCR) - Final 02/23/23 17:05 Urine, Clean Catch Streptococcus pneumoniae Antigen (M - Final 02/23/23 17:05 Urine, Clean Catch Legionella Antigen - Final 02/23/23 16:28 Nasal Secretion SARS-CoV-2 Antigen (Rapid) - Final Rhythm Strip Rhythm Strip: Sinus Rhythm Rate: 99 Ectopy: None Physical Exam Narrative GENERAL: cooperative HEENT: Atraumatic; normocephalic EYES; Anicteric, Normal Conjunctiva NECK; supple, normal thyroid, RESPIRATORY: Diminished to auscultation CARDIOVASCULAR: Regular S1 S2, GI: soft, normoactive bowel sounds, : No Renal angle tenderness; EXTREMITIES: No edema, no clubbing, MUSCULOSKELETAL: no muscle wasting NEURO: Awake; no lateralizing signs. SKIN: No Rash PSYCH; Flat affect Assessment & Plan Assessment/Plan (1) Right lower lobe pneumonia: PLAN: Plan Patient is a 68-year-old female admitted with fatigue cough. Imaging studies did show Right middle and lower lobe and left lower lobe. Admitted to regular nursing floor for further management 1. Acute hypoxia ? Secondary to multifocal pneumonia imaging studies did show Right middle and lower lobe and left lower lobe. Admitted to regular nursing floor managed with supplemental oxygen as well as Rocephin and azithromycin ? Patient to be assessed for home oxygen with a 6-minute walk 2. Hypothyroidism - Patient is on levothyroxine home dose continued 3. Diabetes mellitus type II -Patient is on metformin held placed on, Accu-Cheks a.c. and at bedtime and covered with sliding scale insulin 4. Hypertension - Blood pressure controlled, home medications continued with dose adjustment as needed 5. Dyslipidemia -Patient is on statin therapy, continued at home dose 6. Depression ? Patient is on Effexor Time spent in the patient's overall evaluation,decision-making process, review of diagnostic data, adjustment of management, discussion with other providers, nursing nursing and ancillary staff involved in patient's care documentation, 35 Minutes Charges/Coding Visit Charges Inpatient E&M: 37668 Subs Hosp L2 02/26/23 0844 <Electronically signed by Simone Benitez MD> Cosigner Signature (if applicable): CC: ~ Signed [facility] Work Phone: 1(694) 951-177305-29-[address] Rosario [facility] February 25, 2023 10:03am Note Date/Time February 25, 2023 10:03 am [facility] Medical Records Department [address] [place] [address] Progress Note - Hospitalist 02/25/23 0957 MR#: [id number] Acct: [id number] Name: ERIN LAWRENCE Rep #:[id number] : 1955 68 From: Misha Rosario DO PCP: Dr. Madelin Alberto, DO Status:AD M IN Location: [facility] BA600-6 Reason for Visit Reason for Visit: Diagnoses Pneumonia, unspecified organism (02/23/23) Subjective Subjective Patient seen and examined today, she does not complain of shortness of breath atrest, chest x-ray today shows bilateral infiltrates. Objective Data Objective Data Vital Signs: Vital Signs Temp Pulse Resp BP Pulse Ox O2 Del Method O2 Flow Rate 98.0 F 83 20 H 149/66 H 92 Nasal Cannula 4 02/25/23 07:52 02/25/23 07:52 02/25/23 07:52 02/25/23 07:52 02/25/23 09:16 02/25/23 09:16 02/25/23 09:16 Oxygen Flow Rate (L/min) 4 Oxygen Delivery Method Nasal Cannula Weight: 83.915 kg Body Mass Index (BMI) 30.7 Intake & Output: Intake and Output for Last 24 Hours 02/23/23 02/24/23 02/25/23 23:59 23:59 23:59 Intake Total 955 / 1255 1505 / 1505 Output Total 250 / 250 Balance 705 / 1005 1505 / 1505 Lab / Micro Data Result Diagrams: 02/24/23 05:40 02/23/23 09:45 Labs: Laboratory Results - last 24 hr 02/24/23 05:40: Hemoglobin A1c 7.4 H 02/24/23 11:36: POC Glucose 294 H 02/24/23 21:30: POC Glucose 249 H 02/25/23 06:29: POC Glucose 159 H Micro: Microbiology 02/23/23 13:17 Mucosa - Nasopharyngeal Respiratory Panel (PCR) - Final 02/23/23 17:05 Urine, Clean Catch Streptococcus pneumoniae Antigen (M - Final 02/23/23 17:05 Urine, Clean Catch Legionella Antigen - Final 02/23/23 16:28 Nasal Secretion SARS-CoV-2 Antigen (Rapid) - Final Radiography Diagnostic Testing: Radiology Impression Chest X-Ray 02/25/23 06:00 IMPRESSION: Continued bilateral lower lobe predominant airspace disease and small left pleural effusion. Findings may indicate pneumonia. Electronically Signed: Juaquin Aggarwal MD at 6:34 EDT , Rhythm Strip Rhythm Strip: Sinus Rhythm Rate: 99 Ectopy: None Physical Exam Narrative alert, oriented x3 and no apparent distress General Appearance: cooperative, well kempt and well developed Orientation / Consciousness: awake, oriented to person, oriented to place and oriented to time HEENT normocephalic, head/scalp atraumatic and moist oral mucous membranes Eyes PERRL, EOMs intact bilaterally and conjunctivae normal Neck supple, no JVD, thyroid normal and no carotid bruits General: trachea midline Resp normal respiratory effort, no retractions and no use of accessory muscles Resp Narrative: Decreased breath sounds are noted bilaterally, no rales, rhonchi or wheezes are noted Cardio regular rate, regular rhythm, S1 normal heart sound, S2 normal heart sound, no murmurs, no rub and no gallops GI normal to inspection, nondistended, normoactive bowel sounds, soft to palpation,non-tender and non-distended Extremity no clubbing, cyanosis or edema Skin no rashes or lesions noted General Skin Exam: no breakdown Neuro oriented x3, CN's II-XII intact bilaterally, moves all extremities, no focal motor deficits and no sensory deficits noted Sensorium / Orientation: awake, alert, oriented to person, oriented to place andoriented to time Speech: speech normal Psych affect normal Assessment & Plan Assessment/Plan (1) Right lower lobe pneumonia: PLAN: Plan 1. Right middle and lower lobe and left lower lobe community-acquired pneumonia-patient remains on Rocephin and Zithromax-day #3. \ #2 hypoxia secondary to #1-patient's pulse ox will be monitored, she will receive aerosol treatments, oxygen will be weaned if possible, patient may have to go home on supplemental oxygen short-term, I discussed this with her briefly. #3 type 2 diabetes-patient's blood sugars will be monitored, sliding scale insulin will be given as necessary, patient will remain on her home medication for diabetes #4 hypothyroidism-patient will remain on Synthroid #5 essential hypertension-patient will remain on amlodipine and hydrochlorothiazide #6 hyperlipidemia-patient is on Crestor #7 chronic depression-patient is on Effexor Total clinical time spent by myself addressing the patient's medical issues reviewing all her data, and collaborating with patient's care team 36 minutes Charges/Coding Visit Charges Inpatient E&M: 41530 Subs Hosp L2 02/25/23 1003 <Electronically signed by Misha Rosario DO> Cosigner Signature (if applicable): CC: ~ Signed [facility] Work Phone: 1(467) 110-807105-28-[address] Rosario [facility] February 24, 2023 9:58am Note Date/Time February 24, 2023 9:58a m [facility] Medical Records Department [address] [place] [id number] Progress Note - Hospitalist 02/24/23 0955 MR#: [id number] Acct: [id number] Name: ERIN LAWRENCE Rep #:[id number] : 1955 68 From: Misha Rosario DO PCP: Dr. Madelin Alberto, DO Status:AD M IN Location: [facility] CE013-1 Reason for Visit Reason for Visit: Diagnoses Pneumonia, unspecified organism (02/23/23) Subjective Subjective Patient was seen and examined today she states she is feeling somewhat better today, patient's white count has remained normal, patient's Legionella antigen and strep antigen was negative, her COVID test was negative, her respiratory panel was also negative. Patient still remains on 4 L of oxygen via nasal cannula. Objective Data Objective Data Vital Signs: Vital Signs Temp Pulse Resp BP Pulse Ox O2 Del Method O2 Flow Rate 98.2 F 90 18 145/74 H 93 Nasal Cannula 4 02/24/23 04:07 02/24/23 07:32 02/24/23 07:32 02/24/23 04:07 02/24/23 07:32 02/24/23 07:32 02/24/23 07:32 Oxygen Flow Rate (L/min) 4 Oxygen Delivery Method Nasal Cannula Weight: 83.915 kg Body Mass Index (BMI) 30.7 Intake & Output: Intake and Output for Last 24 Hours 02/22/23 02/23/23 02/24/23 23:59 23:59 23:59 Intake Total 955 / 1255 300 / 300 Output Total 250 / 250 Balance 705 / 1005 300 / 300 Lab / Micro Data Result Diagrams: 02/24/23 05:40 02/23/23 09:45 Labs: Laboratory Results - last 24 hr 02/23/23 09:45: WBC 10.3, RBC 4.03 L, Hgb 12.3, Hct 37.7, MCV 93.5, MCH 30.5, MCHC 32.6, RDW Std Deviation 45.9 H, RDW Coeff of Sylvester 13.4, Plt Count 235, MPV 10.2, Immature Gran % (Auto) 1.000 H, Neut % (Auto) 73.7 H, Lymph % (Auto) 10.4 L, Charlton % (Auto) 12.7 H, Eos % (Auto) 1.7, Baso % (Auto) 0.5, Absolute Neuts (auto) 7.6, Absolute Lymphs (auto) 1.07, Nucleated RBC % 0 02/23/23 09:45: Sodium 140, Potassium 3.5, Chloride 104, Carbon Dioxide 30.0, Anion Gap 6, BUN 16, Creatinine 0.68, Estim Creat Clear Calc 49.12, Est GFR (MDRD) Af Amer 111, Est GFR (MDRD) Non-Af 92, BUN/Creatinine Ratio 23.5 H, Glucose 217 H, Calcium 9.3, Total Bilirubin 0.60, AST 28, ALT 26, Alkaline Phosphatase 133 H, Total Protein 7.3, Albumin 2.7 L, Globulin 4.6 H, Albumin/Globulin Ratio 0.6 L 02/23/23 09:45: Lactic Acid 1.6 02/23/23 16:37: POC Glucose 208 H 02/23/23 23:00: POC Glucose 161 H 02/24/23 05:40: WBC 11.0, RBC 3.80 L, Hgb 11.3 L, Hct 35.5 L, MCV 93.4, MCH 29.7, MCHC 31.8 L, RDW Std Deviation 46.3 H, RDW Coeff of Sylvester 13.4, Plt Count 234, MPV 10.3, Immature Gran % (Auto) 1.400 H, Neut % (Auto) 71.0 H, Lymph % (Auto) 13.6 L, Charlton % (Auto) 10.9 H, Eos % (Auto) 2.6, Baso % (Auto) 0.5, Absolute Neuts (auto) 7.8 H, Absolute Lymphs (auto) 1.49, Nucleated RBC % 0 02/24/23 06:47: POC Glucose 158 H Micro: Microbiology 02/23/23 13:17 Mucosa - Nasopharyngeal Respiratory Panel (PCR) - Final 02/23/23 17:05 Urine, Clean Catch Streptococcus pneumoniae Antigen (M - Final 02/23/23 17:05 Urine, Clean Catch Legionella Antigen - Final 02/23/23 16:28 Nasal Secretion SARS-CoV-2 Antigen (Rapid) - Final Radiography Diagnostic Testing: Radiology Impression Chest X-Ray 02/23/23 09:52 IMPRESSION: Very mild pleural effusions with patchy opacities in the mid to lower lungs, concerning for pneumonia. Electronically Signed: Lety Coulter MD at 11:41 EDT , Chest X-Ray 02/24/23 06:00 IMPRESSION: Mild interval increase in bilateral peripheral airspace opacities and trace left effusion concerning for pneumonia. Electronically Signed: Molina Gabriel MD at 8:30 EDT , Rhythm Strip Rhythm Strip: Sinus Rhythm Rate: 99 Ectopy: None Physical Exam Const alert, oriented x3 and no apparent distress General Appearance: cooperative, well kempt and well developed Orientation / Consciousness: awake, oriented to person, oriented to place and oriented to time HEENT normocephalic, head/scalp atraumatic and moist oral mucous membranes Eyes PERRL, EOMs intact bilaterally and conjunctivae normal Neck supple, no JVD, thyroid normal and no carotid bruits General: trachea midline Resp normal respiratory effort, no retractions and no use of accessory muscles Resp Narrative: There are fine rales on inspiration at the lung bases bilaterally Auscultation: rales bilateral base; Negative for rhonchi or wheezes Cardio regular rate, regular rhythm, S1 normal heart sound, S2 normal heart sound, no murmurs, no rub and no gallops GI normal to inspection, nondistended, normoactive bowel sounds, soft to palpation,non-tender and non-distended Extremity no clubbing, cyanosis or edema Skin no rashes or lesions noted General Skin Exam: no breakdown Neuro oriented x3, CN's II-XII intact bilaterally, moves all extremities, no focal motor deficits and no sensory deficits noted Sensorium / Orientation: awake, alert, oriented to person, oriented to place andoriented to time Speech: speech normal Psych affect normal Assessment & Plan Assessment/Plan (1) Right lower lobe pneumonia: PLAN: Plan 1. Right middle and lower lobe community-acquired pneumonia-patient remains on Rocephin and Zithromax-day #2, I will repeat her chest x-ray tomorrow \ #2 hypoxia secondary to #1-patient's pulse ox will be monitored, she will receive aerosol treatments, oxygen will be weaned if possible #3 type 2 diabetes-patient's blood sugars will be monitored, sliding scale insulin will be given as necessary, patient will remain on her home medication for diabetes #4 hypothyroidism-patient will remain on Synthroid #5 essential hypertension-patient will remain on amlodipine and hydrochlorothiazide #6 hyperlipidemia-patient is on Crestor #7 chronic depression-patient is on Effexor Total clinical time spent by myself addressing the patient's medical issues reviewing all her data, and collaborating with patient's care team 35 minutes Charges/Coding Visit Charges Inpatient E&M: 29104 Subs Hosp L2 02/24/23 0958 <Electronically signed by Misha Rosario DO> Cosigner Signature (if applicable): CC: ~ Signed [facility] Work Phone: 1(816) 277-952905-27-2023 History and physical note Author Dr. Rosario [facility] February 23, 2023 5:44pm Note Date/Time February 23, 2023 5:42p m [facility] Medical Records Department [address] [place] [address] H&P Exam - Hospitalist 02/23/23 1735 MR#: [id number] Acct: [id number] Name: ERIN LAWRENCE Rep #:[id number] : 1955 68 From: Misha Rosario DO PCP: Dr. Madelin Alberto, DO Status:AD M IN Location: [facility] PQ897-5 HPI - General General Date of Admission: 02/23/23 Date of Service: 02/23/23 Chief Complaint: This of breath, productive cough HPI Narrative ERIN LAWRENCE, is a 68 F who presents to the emergency room at [facility] with complaint of cough and shortness of breath x5 days, patient states she felt bad starting this past Saturday, she has been intermittently coughing and bringing up yellow sputum. She denies any chills orfevers at home. Work-up in the emergency room included a chest x-ray which showed a right middle and lower lobe infiltrate, patient's white blood cell count was normal, her temperature was 99.9, chemistry was remarkable for glucoseof 217 and an alkaline phosphatase of 133. Patient required 2 L of oxygen via nasal cannula to keep her pulse ox above 90%. Patient will be admitted to [place] [address] for community-acquired pneumonia of the right middle and lower lobe along with hypoxia, she will be treated with IV Zithromax and Rocephin, she willbe given aerosol treatments, labs will be monitored. [facility] Medical History Asthma Benign hypertension Cataracts, bilateral Diabetes High cholesterol High triglycerides Mixed hyperlipidemia Overweight (BMI 25.0-29.9) Vitamin deficiency Home Medications cholecalciferol (vitamin D3) 125 mcg (5,000 unit) capsule 125 mcg PO DAILY Checkwith primary doctor 02/14/21 [History Last Taken Unknown] levothyroxine 50 mcg capsule 50 mcg PO DAILY Check with primary doctor 02/14/21 [History Last Taken Unknown] rosuvastatin 10 mg tablet 10 mg PO QHS Check with primary doctor 02/14/21 [History Last Taken Unknown] venlafaxine 75 mg tablet 75 mg PO DAILY Check with primary doctor 02/14/21 [History Last Taken Unknown] amlodipine 10 mg tablet 10 mg PO DAILY Check with primary doctor 02/23/23 [History Last Taken Unknown] hydrochlorothiazide 12.5 mg tablet 12.5 mg PO DAILY Check with primary doctor 02/23/23 [History Last Taken Unknown] insulin syringe-needle U-100 0.3 mL 31 gauge x 5/16 (BD Insulin Syringe Ultra- Fine) 02/23/23 [History Last Taken Unknown] metformin 500 mg tablet 1,000 mg PO BID Check with primary doctor 02/23/23 [History Last Taken Unknown] Allergy/AdvReac Type Severity Reaction Status Date / Time glimepiride [From Amaryl] Allergy Mild rash Verified 09/27/22 14:18 lisinopril Allergy Mild rash Verified 09/27/22 14:18 losartan Allergy Mild rash Verified 09/27/22 14:18 Family History Sister Arthritis Colon cancer, Onset Age: 54 Mother Colon cancer, Onset Age: 71 Diabetes Myocardial infarction, Onset Age: 71 Aunt Uterine cancer Surgical History Hx of appendectomy Social History (Updated 02/23/23 @ 10:[address] Brando Weiss MD) household members: none Smoking Status: Never smoker alcohol intake: never substance use type: does not use ROS Constitutional Constitutional: Reports fatigue and malaise; Denies anorexia, change in weight, chills, fever(s), night sweats or weakness Eyes Eyes: Denies blurry vision, change in eye color, change in vision, discharge from eye(s) or eye pain Cardiovascular Cardiovascular: Denies chest pain, claudication, edema or palpitations Respiratory/Chest Respiratory/Chest: Reports cough, productive cough, shortness of breath at rest and shortness of breath with exertion; Denies hemoptysis Gastrointestinal Gastrointestinal: Denies abdominal pain, constipation, diarrhea, hematemesis, hematochezia, melena, nausea or vomiting Genitourinary Genitourinary: Denies dysuria, hematuria, nocturia, urinary frequency, urinary hesitancy, urinary incontinence or urinary urgency Musculoskeletal Musculoskeletal: Denies back pain, joint pain, joint stiffness, joint swelling, myalgias or neck pain Neurologic Neurologic: Denies abnormal gait, abnormal speech, confusion, disequilibrium, dizziness, focal weakness, headache(s), loss of vision, numbness, other visual disturbances, paresthesias, syncope or tingling Psychiatric Psychiatric: Denies anxiety, cognitive impairment, depression, irritability, mood swings or suicidal ideation Endocrine Endocrinology: Denies change in body appearance, cold intolerance, excessive sweating, heat intolerance, polydipsia or polyuria Hematologic/Lymphatic Hematologic/Lymphatic: Denies none, anemia, easy bleeding, easy bruising or lymphadenopathy Allergic/Immunologic Allergic/Immunologic: Denies rhinitis, urticaria, eczemia or asthma Vital Signs Vital Signs Vital Signs: 02/23/23 09:32 02/23/23 09:36 02/23/23 09:36 Temperature 99.9 F H 99.8 F H Temperature Source Temporal Temporal Pulse Rate 101 H 98 Respiratory Rate 18 20 H 18 Respiratory Effort Respiratory Depth Respiratory Pattern Blood Pressure 157/73 H 150/74 H Blood Pressure Mean 101 99 Blood Pressure Source Blood Pressure Position Blood Pressure Location Pulse Ox 91 88 91 Oxygen Delivery Method Room Air Room Air Nasal Cannula Oxygen Flow Rate (L/min) 2 02/23/23 09:48 02/23/23 10:08 02/23/23 10:15 Temperature Temperature Source Pulse Rate 100 103 H Respiratory Rate 98 H 20 H Respiratory Effort Normal Respiratory Depth Normal Respiratory Pattern Normal Blood Pressure Blood Pressure Mean Blood Pressure Source Blood Pressure Position Blood Pressure Location Pulse Ox Oxygen Delivery Method Room Air Oxygen Flow Rate (L/min) 02/23/23 10:15 02/23/23 10:36 02/23/23 11:20 Temperature 97.8 F Temperature Source Temporal Pulse Rate 78 Respiratory Rate 16 Respiratory Effort Respiratory Depth Respiratory Pattern Blood Pressure 140/78 H Blood Pressure Mean 98 Blood Pressure Source Blood Pressure Position Blood Pressure Location Pulse Ox 95 93 85 Oxygen Delivery Method Nasal Cannula Nasal Cannula Nasal Cannula Oxygen Flow Rate (L/min) 2 2 2 02/23/23 11:36 02/23/23 13:23 02/23/23 13:00 Temperature 98.2 F 99.4 F H 98.9 F Temperature Source Temporal Oral Oral Pulse Rate 93 92 92 Respiratory Rate 14 20 H 20 H Respiratory Effort Respiratory Depth Respiratory Pattern Blood Pressure 140/69 H 144/80 H 144/80 H Blood Pressure Mean 92 101 101 Blood Pressure Source Monitor Blood Pressure Position Semi-Fowlers Blood Pressure Location Right Arm Pulse Ox 94 98 Oxygen Delivery Method Nasal Cannula Nasal Cannula Oxygen Flow Rate (L/min) 6 6 02/23/23 12:58 02/23/23 13:26 02/23/23 14:33 Temperature 98.0 F Temperature Source Oral Pulse Rate 92 91 Respiratory Rate 20 H 18 Respiratory Effort Short of Breath Labored Respiratory Depth Normal Respiratory Pattern Normal Blood Pressure 134/70 H Blood Pressure Mean 91 Blood Pressure Source Blood Pressure Position Blood Pressure Location Pulse Ox 94 96 Oxygen Delivery Method Nasal Cannula Nasal Cannula Nasal Cannula Oxygen Flow Rate (L/min) 6 6 6 02/23/23 16:39 Temperature 99.5 F H Temperature Source Oral Pulse Rate 90 Respiratory Rate 18 Respiratory Effort Respiratory Depth Respiratory Pattern Blood Pressure 155/77 H Blood Pressure Mean 103 Blood Pressure Source Blood Pressure Position Blood Pressure Location Pulse Ox 95 Oxygen Delivery Method Nasal Cannula Oxygen Flow Rate (L/min) 6 Weight Weight: 83.915 kg Body Mass Index (BMI) 30.7 Physical Exam Const alert, oriented x3, no apparent distress and average body habitus General Appearance: cooperative, well kempt and well developed Orientation / Consciousness: awake, oriented to person, oriented to place and oriented to time HEENT normocephalic, head/scalp atraumatic, hearing grossly normal bilaterally and moist oral mucous membranes Eyes PERRL, EOMs intact bilaterally and conjunctivae normal Neck supple, no JVD, thyroid normal and no carotid bruits General: trachea midline Resp normal respiratory effort, no retractions and no use of accessory muscles Resp Narrative: There is decreased breath sounds over the patient's lower lungs bilaterally Auscultation: Negative for rales, rhonchi or wheezes Cardio regular rate, regular rhythm, S1 normal heart sound, S2 normal heart sound, no murmurs, no rub and no gallops GI normal to inspection, nondistended, normoactive bowel sounds, soft to palpation,non-tender and non-distended Extremity no clubbing, cyanosis or edema Skin no rashes or lesions noted General Skin Exam: no breakdown Neuro oriented x3, CN's II-XII intact bilaterally, moves all extremities, no focal motor deficits and no sensory deficits noted Sensorium / Orientation: awake, alert, oriented to person, oriented to place andoriented to time Speech: speech normal Psych affect normal Results Lab / Micro Data Result Diagrams: 02/23/23 09:45 02/23/23 09:45 Labs: Laboratory Results - last 24 hr 02/23/23 09:45: WBC 10.3, RBC 4.03 L, Hgb 12.3, Hct 37.7, MCV 93.5, MCH 30.5, MCHC 32.6, RDW Std Deviation 45.9 H, RDW Coeff of Sylvester 13.4, Plt Count 235, MPV 10.2, Immature Gran % (Auto) 1.000 H, Neut % (Auto) 73.7 H, Lymph % (Auto) 10.4 L, Charlton % (Auto) 12.7 H, Eos % (Auto) 1.7, Baso % (Auto) 0.5, Absolute Neuts (auto) 7.6, Absolute Lymphs (auto) 1.07, Nucleated RBC % 0 02/23/23 09:45: Sodium 140, Potassium 3.5, Chloride 104, Carbon Dioxide 30.0, Anion Gap 6, BUN 16, Creatinine 0.68, Estim Creat Clear Calc 49.12, Est GFR (MDRD) Af Amer 111, Est GFR (MDRD) Non-Af 92, BUN/Creatinine Ratio 23.5 H, Glucose 217 H, Calcium 9.3, Total Bilirubin 0.60, AST 28, ALT 26, Alkaline Phosphatase 133 H, Total Protein 7.3, Albumin 2.7 L, Globulin 4.6 H, Albumin/Globulin Ratio 0.6 L 02/23/23 09:45: Lactic Acid 1.6 02/23/23 16:37: POC Glucose 208 H Micro: Microbiology 02/23/23 16:28 Nasal Secretion SARS-CoV-2 Antigen (Rapid) - Final Rhythm Strip Rhythm Strip: Sinus Rhythm Rate: 99 Ectopy: None Radiology Impression Chest X-Ray 02/23/23 09:52 IMPRESSION: Very mild pleural effusions with patchy opacities in the mid to lower lungs, concerning for pneumonia. Electronically Signed: Lety Coulter MD at 11:41 EDT Reading Location ID and State: [facility] / [place] Tel , Service support , Assessment & Plan Assessment/Plan (1) Right lower lobe pneumonia: PLAN: Plan 1. Right middle and lower lobe community-acquired pneumonia-patient will be admitted to [facility] 3, she will remain on IV Rocephin and Zithromax, sputum culturewill be obtained, respiratory panel and aids test was ordered, strep and Legionella urine antigens were ordered. Aerosol treatments will be given to thepatient. #2 hypoxia secondary to #1-patient's pulse ox will be monitored, she will receive aerosol treatments #3 type 2 diabetes-patient's blood sugars will be monitored, sliding scale insulin will be given as necessary, patient will remain on her home medication for diabetes #4 hypothyroidism-patient will remain on Synthroid #5 essential hypertension-patient will remain on amlodipine and hydrochlorothiazide #6 hyperlipidemia-patient is on Crestor #7 chronic depression-patient is on Effexor Total clinical time spent by myself addressing the patient's medical issues reviewing all her data, and collaborating with patient's care team 55 minutes Charges/Coding Visit Charges Inpatient E&M: 28989 Init Hosp L2 02/23/23 1744 <Electronically signed by Misha Rosario DO> Cosigner Signature (if applicable): CC: Dr. Madelin Alberto DO; Dr. Misha Rosario DO~ Signed [facility] Work Phone: 1(304) 342-252605-27-[address] Weiss [facility] February 23, 2023 11:32am Note Date/Time February 23, 2023 10:26 am [facility] Medical Records Department [address] [place] [address] Emergency Department Summary 02/23/23 MR#: [id number] Acct: [id number] Name: ERIN LAWRENCE Rep #:[id number] : 1955 68 From: Brando Weiss MD PCP: Dr. Madelin Alberto DO Status:RE G ER Location: ED HPI History of Present Illness Chief Complaint: Cough Detail of Chief Complaint: Productive cough, fatigue, dyspnea on exertion Informant: patient Onset/Context/Timing Onset: Days (Onset Saturday, February 20) Context: Sudden Onset Quality: Cough productive of colored sputum Location: Respiratory Current Severity: Mild (At rest on oxygen) Maximum Severity: Severe Worsened by: Dyspnea on exertion Relieved by: Nothing Associated Symptoms Associated Symptoms: Productive cough, subjective fever Narrative Narrative: Patient is a 68-year-old retired woman who has had no ill contacts and presents with fatigue, dyspnea, dyspnea on exertion, productive cough of green sputum. She denies smoking. She denies exposure to any environmental fumes etc. She denies history of PE or DVT. She has no risk factors for PE or DVT. She deniesleg pain, swelling discoloration. She does endorse rhinorrhea. She feels this is due to allergies. She denies headache, visual, ocular auditory symptoms. She denies GI symptoms. She deniesurologic symptoms. Prior similar symptoms: No Recent Illness/Hospitalization: No [facility] Medical History Asthma Benign hypertension Cataracts, bilateral Diabetes High cholesterol High triglycerides Mixed hyperlipidemia Overweight (BMI 25.0-29.9) Vitamin deficiency Home Medications cholecalciferol (vitamin D3) 125 mcg (5,000 unit) capsule 125 mcg PO DAILY 02/14/21 [History Last Taken Unknown] levothyroxine 50 mcg capsule 50 mcg PO DAILY 02/14/21 [History Last Taken Unknown] rosuvastatin 10 mg tablet 10 mg PO QHS 02/14/21 [History Last Taken Unknown] venlafaxine 75 mg tablet 75 mg PO DAILY 02/14/21 [History Last Taken Unknown] amlodipine 10 mg tablet 10 mg PO DAILY #90 tabs 02/22/22 [Rx Last Taken Unknown] metformin 500 mg tablet 1,000 mg PO BID #360 tabs 02/22/22 [Rx Last Taken Unknown] hydrochlorothiazide 12.5 mg tablet 12.5 mg PO DAILY #90 tabs 04/26/22 [Rx Last Taken Unknown] insulin syringe-needle U-100 0.3 mL 31 gauge x 5/16 (BD Insulin Syringe Ultra- Fine) #100 ea 05/21/22 [Rx Last Taken Unknown] Allergy/AdvReac Type Severity Reaction Status Date / Time glimepiride [From Amaryl] Allergy Mild rash Verified 09/27/22 14:18 lisinopril Allergy Mild rash Verified 09/27/22 14:18 losartan Allergy Mild rash Verified 09/27/22 14:18 Family History Sister Arthritis Colon cancer, Onset Age: 54 Mother Colon cancer, Onset Age: 71 Diabetes Myocardial infarction, Onset Age: 71 Aunt Uterine cancer Surgical History Hx of appendectomy Social History (Updated 02/23/23 @ 10:[address] Brando Weiss MD) household members: none Smoking Status: Never smoker alcohol intake: never substance use type: does not use ROS ROS ED Constitutional Constitutional ED: Reports fever(s) and subjective; Denies chills, sweats or weight loss Eyes Eyes: Denies blurry vision, change in vision or diplopia ENT ENT ED: Reports rhinorrhea; Denies ear pain or sore throat Cardiovascular Cardiovascular: Denies chest pain, orthopnea, palpitations, paroxysmal nocturnaldyspnea or racing heartbeat Respiratory/Chest Respiratory/Chest: Reports cough, dyspnea, dyspnea on exertion and sputum; Denies orthopnea or paroxysmal nocturnal dyspnea Gastrointestinal Gastrointestinal: Denies abdominal pain, constipation, diarrhea, melena, nausea or vomiting Genitourinary Genitourinary ED: Denies dysuria, hematuria or urinary frequency Musculoskeletal Musculoskeletal: Denies arthralgias or myalgias Integumentary Denies rash Neurologic Neurologic: Reports weakness; Denies headache(s) or paresthesias Psychiatric Psychiatric: Denies anxiety or depression Endocrine Endocrinology: Denies cold intolerance or heat intolerance Hematologic/Lymphatic Hematologic/Lymphatic: Reports systems reviewed and no addt'l complaints, exceptas documented EXAM Physical Exam Narrative Exam Narrative: Patient is breathing much more rapidly than 20 times a minute. Patient was noted to be hypoxic at triage with a pulse ox of 86% with conversation. Withoutconversational pulse ox of 88%. Const Vital Signs: 02/23/23 09:32 02/23/23 09:36 02/23/23 09:36 Temperature 99.9 F H 99.8 F H Temperature Source Temporal Temporal Pulse Rate 101 H 98 Respiratory Rate 18 20 H 18 Respiratory Effort Respiratory Depth Respiratory Pattern Blood Pressure 157/73 H 150/74 H Blood Pressure Mean 101 99 Pulse Ox 91 88 91 Oxygen Delivery Method Room Air Room Air Nasal Cannula Oxygen Flow Rate (L/min) 2 02/23/23 09:48 02/23/23 10:08 02/23/23 10:15 Temperature Temperature Source Pulse Rate 100 103 H Respiratory Rate 98 H 20 H Respiratory Effort Normal Respiratory Depth Normal Respiratory Pattern Normal Blood Pressure Blood Pressure Mean Pulse Ox Oxygen Delivery Method Room Air Oxygen Flow Rate (L/min) 02/23/23 10:15 02/23/23 10:36 02/23/23 11:20 Temperature 97.8 F Temperature Source Temporal Pulse Rate 78 Respiratory Rate 16 Respiratory Effort Respiratory Depth Respiratory Pattern Blood Pressure 140/78 H Blood Pressure Mean 98 Pulse Ox 95 93 85 Oxygen Delivery Method Nasal Cannula Nasal Cannula Nasal Cannula Oxygen Flow Rate (L/min) 2 2 2 Positive well nourished and well developed General Appearance ED: well developed; Negative for cyanotic, diaphoretic, NAD or pallor HEENT Reports moist mucous membranes HEENT Narrative: Head is atraumatic normocephalic. Ears normal. Nares patent. Posterior pharynx out erythema or exudate. Uvula midline. Eyes PERRL and EOMs intact bilaterally Eyes Narrative: Trachea is midline. There is no inspiratory extra or. General Eye ED: Negative for pale conjunctiva or scleral icterus Neck no lymphadenopathy, supple and no JVD Chest Wall inspection of chest normal Resp No normal respiratory effort and No clear to auscultation bilaterally Effort and Inspection: other There is minimal use of accessory muscles. ; Negative for retractions or pain with movement Auscultation: rales bilateral (Left greater than right) lower and wheezes expiratory wheezes, scattered wheezes and throughout Cardio regular rate, regular rhythm, S1 normal heart sound, S2 normal heart sound and no murmurs GI normal to inspection, nondistended, normoactive bowel sounds, non-tender, non-distended and no masses; Negative for hepatosplenomegaly Auscultation: normoactive bowel sounds Palpation: soft Back/Spine no CVA tenderness Thoracic Spine / Upper Back: Negative for thoracic spinal tenderness Lumbar Spine / Lower Back: Negative for lumbar spinal tenderness Extremity normal to inspection Extremity Narrative: There is no asymmetry, swelling, discoloration, leg vein distention, palpable cords or tenderness along the distribution of the deep venous system. General Extremety ED: Negative for edema or tenderness General Extremity: Negative for edema Neuro oriented x3, CN's II-XII intact bilaterally and no sensory deficits noted Sensorium / Orientation: alert Skin no rashes or lesions noted, no wounds and skin turgor normal General Skin Exam: Negative for jaundice or pallor MDM MDM MDM Narrative Medical decision making narrative: Clinically patient has right lower lobe pneumonia with egophony. This may represent bilateral lower lobe pneumonia. Since patient hypoxic she was placed on oxygen. Patient was told there is a high likelihood that she will require admission. Work-up included CBC, CMP, lactate and chest x-ray. Patient was treated with DuoNeb followed by 2 albuterol treatments. I was informed by the respiratory therapist at 1028 that patient has more air movement on the left than initially. Lab Data Attestation: I reviewed the patient's lab results. Lab results narrative: Comprehensive metabolic panel reveals slight elevated BUN to creatinine ratio. Glucose is elevated with a normal CO2 and anion gap. Lactate is normal. Albumin is 2.7 with a normal calcium level. Labs: Laboratory Results - last 24 hr 02/23/23 02/23/23 02/23/23 09:45 09:45 09:45 WBC 10.3 RBC 4.03 L Hgb 12.3 Hct 37.7 MCV 93.5 MCH 30.5 MCHC 32.6 RDW Std Deviation 45.9 H RDW Coeff of Sylvester 13.4 Plt Count 235 MPV 10.2 Immature Gran % (Auto) 1.000 H Neut % (Auto) 73.7 H Lymph % (Auto) 10.4 L Charlton % (Auto) 12.7 H Eos % (Auto) 1.7 Baso % (Auto) 0.5 Absolute Neuts (auto) 7.6 Absolute Lymphs (auto) 1.07 Nucleated RBC % 0 Sodium 140 Potassium 3.5 Chloride 104 Carbon Dioxide 30.0 Anion Gap 6 BUN 16 Creatinine 0.68 Estim Creat Clear Calc 49.12 Est GFR (MDRD) Af Amer 111 Est GFR (MDRD) Non-Af 92 BUN/Creatinine Ratio 23.5 H Glucose 217 H Lactic Acid 1.6 Calcium 9.3 Total Bilirubin 0.60 AST 28 ALT 26 Alkaline Phosphatase 133 H Total Protein 7.3 Albumin 2.7 L Globulin 4.6 H Albumin/Globulin Ratio 0.6 L Radiography Chest X-Ray - ED: 2 View and Read by ED Physician (Patient has a right lower lobe infiltrate. There is also abnormal interstitial findings left lower lobe, atelectasis. Cardiac size is normal. Perihilar regions unremarkable. Osseous structures unremarkable. This independently reviewed interpreted by me at 1115.) Rhythm Strip Rhythm Strip: Sinus Rhythm Rate: 99 Ectopy: None EKG Initial EKG: Attestation: I personally reviewed and interpreted this EKG as follows: Interpretation: Sinus Rhythm (Rate is 97. [place] interval 180 ms. Cures duration 100 ms. QT duration 306 to 6 ms. [place] is normal. There is artifact which the computer is reading is nonspecific ST-T wave changes.) Differential Diagnosis Chest pain/SOB: pulmonary embolism Reason(s) PE less likely: Positive for Other (History and physicals consistent with pneumonia), ACS ACS: Positive for EKG without ischemia and history not suggestive of ischemia pain and pneumothorax Reason(s) pneumothorax less likely: Positive for bilateral breath sounds and CSRwithhout PTX Treatment and Re-Evaluation :: Since patient does not have evidence of endorgan dysfunction blood cultures werenot obtained. She was treated for community-acquired pneumonia with Rocephin and azithromycin. Since she is hypoxic requiring oxygen will contact hospitalist for admission When I went in to inform patient of her laboratory results and chest x-ray findings pulse ox is 85% on 2 L. There is a good waveform. Patient's oxygen was increased to 4 L by nasal cannula. Discharge Plan Dx/Rx/DC Orders Clinical Impression: Right lower lobe pneumonia, Benign hypertension, Obesity (BMI 30.0-34.9), High cholesterol, Acute respiratory failure with hypoxia, Acute bronchospasm Disposition Disposition: Acute Care Hospital [facility] What to do if you have Problems For any increased pain, shortness of breath, bleeding, nausea or vomiting, chestpain, or any unexpected problems, contact your Primary Care Provider. Call [facility] ([phone]) or report to the closest Emergency Room. Call 911 if necessary. 02/23/23 1132 <Electronically signed by Brando Weiss MD> Cosigner Signature (if applicable): CC: Dr. Madelin Alberto DO ~ Signed [facility] Work Phone: [phone] 920-125406-03-2021 NoteHNO ID: [id number] Author: Norman Perla APRN.BENEFITS SPECIALIST RECRUITER Service: ? Author Type: Nurse Practitioner Type: Progress Notes Filed: 03/02/2021 6:54 PM Note Text: Subjective HPI HPI Erin Lawrence is a 66 year old female who presents today for CC of dizziness and indigestion. This started during night last night. Denies chest pain .Patient presents with: Dizziness: dizzy spells and indigestion-symptoms started today History reviewed. No pertinent past medical history. No past surgical history on file. ALLERGIES Patient has no known allergies. MEDICATIONS amLODIPine (NORVASC) 5 mg tablet Take 5 mg by mouth once daily. levothyroxine (SYNTHROID) 50 mcg tablet TAKE 1 TABLET BY MOUTH DAILY on an empty stomach metFORMIN ER (GLUCOPHAGE XR) 500 mg 24 hr tablet Take 2,000 mg by mouth once daily. rosuvastatin (CRESTOR) 10 mg tablet Take 10 mg by mouth daily at bedtime. EFFEXOR XR 150 MG 24 HR CAP Take one(1) tablet daily. FAMILY HISTORY Problem Relation Age of Onset - None Mother - other (unknown [Other]) Father Social History Tobacco Use - Smoking status: Never Smoker - Smokeless tobacco: Never Used Substance Use Topics - Alcohol use: No - Drug use: No ROS Objective Blood pressure 146/86, pulse 72, temperature 36.4 ?C (97.6 ?F), temperature source Tympanic, resp. rate 18, weight 80.1 kg (176 lb 9.6 oz), SpO2 96 %. Physical Exam Constitutional: General: She is not in acute distress. Appearance: She is not toxic-appearing or diaphoretic. HENT: Head: Normocephalic and atraumatic. Right Ear: Hearing, tympanic membrane, ear canal and external ear normal. Left Ear: Hearing, tympanic membrane, ear canal and external ear normal. Cardiovascular: Rate and Rhythm: Normal rate and regular rhythm. Heart sounds: Normal heart sounds, S1 normal and S2 normal. Pulmonary: Effort: Pulmonary effort is normal. Breath sounds: Normal breath sounds. Neurological: Mental Status: She is alert and oriented to person, place, and time. Gait: Gait is intact. ASSESSMENT/PLAN: 1. Dizziness - ICD9: 780.4, ICD10: R42 Concerns that it is accompanying indigestion. I will refer to ER. Family will drive pov to [facility] ER Patient declines squad. 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[place] [facility] Work Phone: Evaluation note* Diagnosis Onset Date Resolution Status High cholesterol acute Benign hypertension chronic Obesity (BMI 30.0-34.9) [facility] [place] Acute bronchospasm resolved Acute respiratory failure with hypoxia resolved Right lower lobe pneumonia r esolved Benign hypertension chronic Cardiac murmur chronic Diabetes chronic Hypothyroid chronic Obesity (BMI 30.0-34.9) [facility] Vitamin D deficiency [facility] Work Phone: Evaluation note* Diagnosis Onset Date Resolution Status Benign hypertension chronic Cardiac murmur chronic Diabetes chronic Obesity (BMI 30.0-34.9) [facility] Work Phone: evaluation note* Diagnosis Onset Date Resolution Status Benign hypertension chronic Cardiac murmur chronic Diabetes chronic Obesity (BMI 30.0-34.9) [facility] [place] Benign hypertension chronic Diabetes chronic Obesity (BMI 30.0-34.9) [facility] [place] Osteoporosis chronic [facility] Work Phone: Evaluation noteNo assessment information available [facility] Work Phone: Instructions* Name Dates Details How to access health informa tion online Indication:Nonsmoker Start:24-Aug-2020 Instruction Type:Patient Education How to access health informa tion online - Detail Indication:Nonsmoker Start:24-Aug-2020 Instruction Type:Patient Education Patient Instructions Indication:Nonsmoker Start:24-Aug-2020 Instruction Type:Provider Instructions for Treatment How to access health informa tion online Indication:Nonsmoker Start:28-Apr-2020 Instruction Type:Patient Education How to access health informa tion online - Detail Indication:Nonsmoker Start:28-Apr-2020 Instruction Type:Patient Education Patient Instructions Indication:Nonsmoker Start:28-Apr-2020 Instruction Type:Provider Instructions for Treatment How to access health informa tion online Indication:Nonsmoker Start:12-Feb-2020 Instruction Type:Patient Education How to access health informa tion online - Detail Indication:Nonsmoker Start:12-Feb-2020 Instruction Type:Patient Education Patient Instructions Indication:Nonsmoker Start:12-Feb-2020 Instruction Type:Provider Instructions for Treatment How to access health informa tion online Indication:BMI 28.0-28.9,adult Start:21-Jan-2020 Instruction Type:Patient Education How to access health informa tion online - Detail Indication:BMI 28.0-28.9,adult Start:21-Jan-2020 Instruction Type:Patient Education Patient Instructions Indication:BMI 28.0-28.9,adult Start:21-Jan-2020 Instruction Type:Provider Instructions for Treatment How to access health informa tion online Indication:Diabetes mellitus type 2, uncontrolled, without complications Start:06-May-2019 Instruction Type:Patient Education How to access health informa tion online - Detail Indication:Diabetes mellitus type 2, uncontrolled, without complications Start:06-May-2019 Instruction Type:Patient Education Patient Instructions Indication:Diabetes mellitus type 2, uncontrolled, without complications Start:06-May-2019 Instruction Type:Provider Instructions for Treatment How to access health informa tion online Indication:Diabetes mellitus type 2, uncontrolled, without complications Start:28-Jan-2019 Instruction Type:Patient Education How to access health informa tion online - Detail Indication:Diabetes mellitus type 2, uncontrolled, without complications Start:28-Jan-2019 Instruction Type:Patient Education Patient Instructions Indication:Diabetes mellitus type 2, uncontrolled, without complications Start:28-Jan-2019 Instruction Type:Provider Instructions for Treatment How to access health informa tion online Indication:BMI 29.0-29.9,adult Start:20-Aug-2018 Instruction Type:Patient Education How to access health informa tion online - Detail Indication:BMI 29.0-29.9,adult Start:20-Aug-2018 Instruction Type:Patient Education Patient Instructions Indication:BMI 29.0-29.9,adult Start:20-Aug-2018 Instruction Type:Provider Instructions for Treatment How to access health informa tion online Indication:Diabetes mellitus type 2, uncontrolled, without complications Start:02-Jul-2018 Instruction Type:Patient Education How to access health informa tion online - Detail Indication:Diabetes mellitus type 2, uncontrolled, without complications Start:02-Jul-2018 Instruction Type:Patient Education Patient Instructions Indication:Diabetes mellitus type 2, uncontrolled, without complications Start:02-Jul-2018 Instruction Type:Provider Instructions for Treatment Patient Instructions Indication:Low back pain, episodic Start:30-Apr-2018 Instruction Type:Provider Instructions for Treatment How to access health informa tion online Indication:Rash Start:26-Mar-2018 Instruction Type:Patient Education How to access health informa tion online - Detail Indication:Rash Start:26-Mar-2018 Instruction Type:Patient Education Patient Instructions Indication:Rash Start:26-Mar-2018 Instruction Type:Provider Instructions for Treatment How to access health informa tion online Indication:Nonsmoker Start:21-Mar-2018 Instruction Type:Patient Education How to access health informa tion online - Detail Indication:Nonsmoker Start:21-Mar-2018 Instruction Type:Patient Education Patient Instructions Indication:Nonsmoker Start:21-Mar-2018 Instruction Type:Provider Instructions for Treatment How to access health informa tion online Indication:Nonsmoker Start:05-Mar-2018 Instruction Type:Patient Education How to access health informa tion online - Detail Indication:Nonsmoker Start:05-Mar-2018 Instruction Type:Patient Education Patient Instructions Indication:Nonsmoker Start:05-Mar-2018 Instruction Type:Provider Instructions for Treatment How to access health informa tion online Indication:BMI 28.0-28.9,adult Start:09-Jan-2018 Instruction Type:Patient Education How to access health informa tion online - Detail Indication:BMI 28.0-28.9,adult Start:09-Jan-2018 Instruction Type:Patient Education Patient Instructions Indication:BMI 28.0-28.9,adult Start:09-Jan-2018 Instruction Type:Provider Instructions for Treatment How to access health informa tion online Indication:Diabetes mellitus type 2, uncontrolled, without complications Start:02-Dec-2017 Instruction Type:Patient Education How to access health informa tion online - Detail Indication:Diabetes mellitus type 2, uncontrolled, without complications Start:02-Dec-2017 Instruction Type:Patient Education Patient Instructions Indication:Diabetes mellitus type 2, uncontrolled, without complications Start:02-Dec-2017 Instruction Type:Provider Instructions for Treatment How to access health informa tion online Indication:Nonsmoker Start:05-Nov-2017 Instruction Type:Patient Education How to access health informa tion online - Detail Indication:Nonsmoker Start:05-Nov-2017 Instruction Type:Patient Education Patient Instructions Indication:Nonsmoker Start:05-Nov-2017 Instruction Type:Provider Instructions for Treatment Patient Instructions Indication:Chest congestion Start:20-Sep-2017 Instruction Type:Provider Instructions for Treatment How to access health informa tion online Indication:Chest congestion Start:20-Sep-2017 Instruction Type:Patient Education How to access health informa tion online - Detail Indication:Chest congestion Start:20-Sep-2017 Instruction Type:Patient Education Patient Instructions Indication:Chest congestion Start:20-Sep-2017 Instruction Type:Provider Instructions for Treatment How to access health informa tion online Indication:Nonsmoker Start:07-Aug-2017 Instruction Type:Patient Education How to access health informa tion online - Detail Indication:Nonsmoker Start:07-Aug-2017 Instruction Type:Patient Education Patient Instructions Indication:Nonsmoker Start:07-Aug-2017 Instruction Type:Provider Instructions for Treatment How to access health informa tion online Indication:Diabetes mellitus type 2, uncontrolled, without complications Start:31-Jul-2017 Instruction Type:Patient Education How to access health informa tion online - Detail Indication:Diabetes mellitus type 2, uncontrolled, without complications Start:31-Jul-2017 Instruction Type:Patient Education Patient Instructions Indication:Diabetes mellitus type 2, uncontrolled, without complications Start:31-Jul-2017 Instruction Type:Provider Instructions for Treatment How to access health informa tion online Indication:Anxiety Start:22-Apr-2017 Instruction Type:Patient Education How to access health informa tion online - Detail Indication:Anxiety Start:22-Apr-2017 Instruction Type:Patient Education Patient Instructions Indication:Anxiety Start:22-Apr-2017 Instruction Type:Provider Instructions for Treatment How to access health informa tion online Indication:Diabetes mellitus type 2, uncontrolled, without complications Start:22-Apr-2017 Instruction Type:Patient Education How to access health informa tion online - Detail Indication:Diabetes mellitus type 2, uncontrolled, without complications Start:22-Apr-2017 Instruction Type:Patient Education Patient Instructions Indication:Diabetes mellitus type 2, uncontrolled, without complications Start:22-Apr-2017 Instruction Type:Provider Instructions for Treatment How to access health informa tion online Indication:Flu-like symptoms Start:17-Aug-2016 Instruction Type:Patient Education How to access health informa tion online - Detail Indication:Flu-like symptoms Start:17-Aug-2016 Instruction Type:Patient Education Patient Instructions Indication:Flu-like symptoms Start:17-Aug-2016 Instruction Type:Provider Instructions for Treatment How to access health informa tion online - Detail Indication:Diabetes mellitus type 2, uncontrolled, without complications Start:15-Sep-2015 Instruction Type:Patient Education How to access health informa tion online Indication:Diabetes mellitus type 2, uncontrolled, without complications Start:15-Sep-2015 Instruction Type:Patient Education Patient Instructions Indication:Diabetes mellitus type 2, uncontrolled, without complications Start:15-Sep-2015 Instruction Type:Provider Instructions for Treatment Patient Instructions Indication:Hypercholesteremia Start:03-Aug-2015 Instruction Type:Provider Instructions for Treatment How to access health informa tion online Indication:Diabetes mellitus type 2, uncontrolled, without complications Start:01-Jul-2015 Instruction Type:Patient Education How to access health informa tion online - Detail Indication:Diabetes mellitus type 2, uncontrolled, without complications Start:01-Jul-2015 Instruction Type:Patient Education Patient Instructions Indication:Diabetes mellitus type 2, uncontrolled, without complications Start:01-Jul-2015 Instruction Type:Provider Instructions for Treatment Patient Instructions Indication:Anxiety Start:16-Feb-2015 Instruction Type:Provider Instructions for Treatment How to access health informa tion online Indication:Anxiety Start:16-Feb-2015 Instruction Type:Patient Education How to access health informa tion online - Detail Indication:Anxiety Start:16-Feb-2015 Instruction Type:Patient Education Patient Instructions Indication:Anxiety Start:06-Aug-2012 Instruction Type:Provider Instructions for Treatment Patient Instructions Indication:Benign paroxysmal positional vertigo Start:30-Jun-2012 Instruction Type:Provider Instructions for Treatment [facility]; [facility] Work Phone: Instructions* Name Dates Details How to access health informa tion online Indication:Nonsmoker Start:24-Aug-2020 Instruction Type:Patient Education How to access health informa tion online - Detail Indication:Nonsmoker Start:24-Aug-2020 Instruction Type:Patient Education Patient Instructions Indication:Nonsmoker Start:24-Aug-2020 Instruction Type:Provider Instructions for Treatment How to access health informa tion online Indication:Nonsmoker Start:28-Apr-2020 Instruction Type:Patient Education How to access health informa tion online - Detail Indication:Nonsmoker Start:28-Apr-2020 Instruction Type:Patient Education Patient Instructions Indication:Nonsmoker Start:28-Apr-2020 Instruction Type:Provider Instructions for Treatment How to access health informa tion online Indication:Nonsmoker Start:12-Feb-2020 Instruction Type:Patient Education How to access health informa tion online - Detail Indication:Nonsmoker Start:12-Feb-2020 Instruction Type:Patient Education Patient Instructions Indication:Nonsmoker Start:12-Feb-2020 Instruction Type:Provider Instructions for Treatment How to access health informa tion online Indication:BMI 28.0-28.9,adult Start:21-Jan-2020 Instruction Type:Patient Education How to access health informa tion online - Detail Indication:BMI 28.0-28.9,adult Start:21-Jan-2020 Instruction Type:Patient Education Patient Instructions Indication:BMI 28.0-28.9,adult Start:21-Jan-2020 Instruction Type:Provider Instructions for Treatment How to access health informa tion online Indication:Diabetes mellitus type 2, uncontrolled, without complications Start:06-May-2019 Instruction Type:Patient Education How to access health informa tion online - Detail Indication:Diabetes mellitus type 2, uncontrolled, without complications Start:06-May-2019 Instruction Type:Patient Education Patient Instructions Indication:Diabetes mellitus type 2, uncontrolled, without complications Start:06-May-2019 Instruction Type:Provider Instructions for Treatment How to access health informa tion online Indication:Diabetes mellitus type 2, uncontrolled, without complications Start:28-Jan-2019 Instruction Type:Patient Education How to access health informa tion online - Detail Indication:Diabetes mellitus type 2, uncontrolled, without complications Start:28-Jan-2019 Instruction Type:Patient Education Patient Instructions Indication:Diabetes mellitus type 2, uncontrolled, without complications Start:28-Jan-2019 Instruction Type:Provider Instructions for Treatment How to access health informa tion online Indication:BMI 29.0-29.9,adult Start:20-Aug-2018 Instruction Type:Patient Education How to access health informa tion online - Detail Indication:BMI 29.0-29.9,adult Start:20-Aug-2018 Instruction Type:Patient Education Patient Instructions Indication:BMI 29.0-29.9,adult Start:20-Aug-2018 Instruction Type:Provider Instructions for Treatment How to access health informa tion online Indication:Diabetes mellitus type 2, uncontrolled, without complications Start:02-Jul-2018 Instruction Type:Patient Education How to access health informa tion online - Detail Indication:Diabetes mellitus type 2, uncontrolled, without complications Start:02-Jul-2018 Instruction Type:Patient Education Patient Instructions Indication:Diabetes mellitus type 2, uncontrolled, without complications Start:02-Jul-2018 Instruction Type:Provider Instructions for Treatment Patient Instructions Indication:Low back pain, episodic Start:30-Apr-2018 Instruction Type:Provider Instructions for Treatment How to access health informa tion online Indication:Rash Start:26-Mar-2018 Instruction Type:Patient Education How to access health informa tion online - Detail Indication:Rash Start:26-Mar-2018 Instruction Type:Patient Education Patient Instructions Indication:Rash Start:26-Mar-2018 Instruction Type:Provider Instructions for Treatment How to access health informa tion online Indication:Nonsmoker Start:21-Mar-2018 Instruction Type:Patient Education How to access health informa tion online - Detail Indication:Nonsmoker Start:21-Mar-2018 Instruction Type:Patient Education Patient Instructions Indication:Nonsmoker Start:21-Mar-2018 Instruction Type:Provider Instructions for Treatment How to access health informa tion online Indication:Nonsmoker Start:05-Mar-2018 Instruction Type:Patient Education How to access health informa tion online - Detail Indication:Nonsmoker Start:05-Mar-2018 Instruction Type:Patient Education Patient Instructions Indication:Nonsmoker Start:05-Mar-2018 Instruction Type:Provider Instructions for Treatment How to access health informa tion online Indication:BMI 28.0-28.9,adult Start:09-Jan-2018 Instruction Type:Patient Education How to access health informa tion online - Detail Indication:BMI 28.0-28.9,adult Start:09-Jan-2018 Instruction Type:Patient Education Patient Instructions Indication:BMI 28.0-28.9,adult Start:09-Jan-2018 Instruction Type:Provider Instructions for Treatment How to access health informa tion online Indication:Diabetes mellitus type 2, uncontrolled, without complications Start:02-Dec-2017 Instruction Type:Patient Education How to access health informa tion online - Detail Indication:Diabetes mellitus type 2, uncontrolled, without complications Start:02-Dec-2017 Instruction Type:Patient Education Patient Instructions Indication:Diabetes mellitus type 2, uncontrolled, without complications Start:02-Dec-2017 Instruction Type:Provider Instructions for Treatment How to access health informa tion online Indication:Nonsmoker Start:05-Nov-2017 Instruction Type:Patient Education How to access health informa tion online - Detail Indication:Nonsmoker Start:05-Nov-2017 Instruction Type:Patient Education Patient Instructions Indication:Nonsmoker Start:05-Nov-2017 Instruction Type:Provider Instructions for Treatment Patient Instructions Indication:Chest congestion Start:20-Sep-2017 Instruction Type:Provider Instructions for Treatment How to access health informa tion online Indication:Chest congestion Start:20-Sep-2017 Instruction Type:Patient Education How to access health informa tion online - Detail Indication:Chest congestion Start:20-Sep-2017 Instruction Type:Patient Education Patient Instructions Indication:Chest congestion Start:20-Sep-2017 Instruction Type:Provider Instructions for Treatment How to access health informa tion online Indication:Nonsmoker Start:07-Aug-2017 Instruction Type:Patient Education How to access health informa tion online - Detail Indication:Nonsmoker Start:07-Aug-2017 Instruction Type:Patient Education Patient Instructions Indication:Nonsmoker Start:07-Aug-2017 Instruction Type:Provider Instructions for Treatment How to access health informa tion online Indication:Diabetes mellitus type 2, uncontrolled, without complications Start:31-Jul-2017 Instruction Type:Patient Education How to access health informa tion online - Detail Indication:Diabetes mellitus type 2, uncontrolled, without complications Start:31-Jul-2017 Instruction Type:Patient Education Patient Instructions Indication:Diabetes mellitus type 2, uncontrolled, without complications Start:31-Jul-2017 Instruction Type:Provider Instructions for Treatment How to access health informa tion online Indication:Anxiety Start:22-Apr-2017 Instruction Type:Patient Education How to access health informa tion online - Detail Indication:Anxiety Start:22-Apr-2017 Instruction Type:Patient Education Patient Instructions Indication:Anxiety Start:22-Apr-2017 Instruction Type:Provider Instructions for Treatment How to access health informa tion online Indication:Diabetes mellitus type 2, uncontrolled, without complications Start:22-Apr-2017 Instruction Type:Patient Education How to access health informa tion online - Detail Indication:Diabetes mellitus type 2, uncontrolled, without complications Start:22-Apr-2017 Instruction Type:Patient Education Patient Instructions Indication:Diabetes mellitus type 2, uncontrolled, without complications Start:22-Apr-2017 Instruction Type:Provider Instructions for Treatment How to access health informa tion online Indication:Flu-like symptoms Start:17-Aug-2016 Instruction Type:Patient Education How to access health informa tion online - Detail Indication:Flu-like symptoms Start:17-Aug-2016 Instruction Type:Patient Education Patient Instructions Indication:Flu-like symptoms Start:17-Aug-2016 Instruction Type:Provider Instructions for Treatment How to access health informa tion online - Detail Indication:Diabetes mellitus type 2, uncontrolled, without complications Start:15-Sep-2015 Instruction Type:Patient Education How to access health informa tion online Indication:Diabetes mellitus type 2, uncontrolled, without complications Start:15-Sep-2015 Instruction Type:Patient Education Patient Instructions Indication:Diabetes mellitus type 2, uncontrolled, without complications Start:15-Sep-2015 Instruction Type:Provider Instructions for Treatment Patient Instructions Indication:Hypercholesteremia Start:03-Aug-2015 Instruction Type:Provider Instructions for Treatment How to access health informa tion online Indication:Diabetes mellitus type 2, uncontrolled, without complications Start:01-Jul-2015 Instruction Type:Patient Education How to access health informa tion online - Detail Indication:Diabetes mellitus type 2, uncontrolled, without complications Start:01-Jul-2015 Instruction Type:Patient Education Patient Instructions Indication:Diabetes mellitus type 2, uncontrolled, without complications Start:01-Jul-2015 Instruction Type:Provider Instructions for Treatment Patient Instructions Indication:Anxiety Start:16-Feb-2015 Instruction Type:Provider Instructions for Treatment How to access health informa tion online Indication:Anxiety Start:16-Feb-2015 Instruction Type:Patient Education How to access health informa tion online - Detail Indication:Anxiety Start:16-Feb-2015 Instruction Type:Patient Education Patient Instructions Indication:Anxiety Start:06-Aug-2012 Instruction Type:Provider Instructions for Treatment Patient Instructions Indication:Benign paroxysmal positional vertigo Start:30-Jun-2012 Instruction Type:Provider Instructions for Treatment [facility]; [facility] Work Phone: Instructions* Name Dates Details How to access health informa tion online Indication:Nonsmoker Start:24-Aug-2020 Instruction Type:Patient Education How to access health informa tion online - Detail Indication:Nonsmoker Start:24-Aug-2020 Instruction Type:Patient Education Patient Instructions Indication:Nonsmoker Start:24-Aug-2020 Instruction Type:Provider Instructions for Treatment How to access health informa tion online Indication:Nonsmoker Start:28-Apr-2020 Instruction Type:Patient Education How to access health informa tion online - Detail Indication:Nonsmoker Start:28-Apr-2020 Instruction Type:Patient Education Patient Instructions Indication:Nonsmoker Start:28-Apr-2020 Instruction Type:Provider Instructions for Treatment How to access health informa tion online Indication:Nonsmoker Start:12-Feb-2020 Instruction Type:Patient Education How to access health informa tion online - Detail Indication:Nonsmoker Start:12-Feb-2020 Instruction Type:Patient Education Patient Instructions Indication:Nonsmoker Start:12-Feb-2020 Instruction Type:Provider Instructions for Treatment How to access health informa tion online Indication:BMI 28.0-28.9,adult Start:21-Jan-2020 Instruction Type:Patient Education How to access health informa tion online - Detail Indication:BMI 28.0-28.9,adult Start:21-Jan-2020 Instruction Type:Patient Education Patient Instructions Indication:BMI 28.0-28.9,adult Start:21-Jan-2020 Instruction Type:Provider Instructions for Treatment How to access health informa tion online Indication:Diabetes mellitus type 2, uncontrolled, without complications Start:06-May-2019 Instruction Type:Patient Education How to access health informa tion online - Detail Indication:Diabetes mellitus type 2, uncontrolled, without complications Start:06-May-2019 Instruction Type:Patient Education Patient Instructions Indication:Diabetes mellitus type 2, uncontrolled, without complications Start:06-May-2019 Instruction Type:Provider Instructions for Treatment How to access health informa tion online Indication:Diabetes mellitus type 2, uncontrolled, without complications Start:28-Jan-2019 Instruction Type:Patient Education How to access health informa tion online - Detail Indication:Diabetes mellitus type 2, uncontrolled, without complications Start:28-Jan-2019 Instruction Type:Patient Education Patient Instructions Indication:Diabetes mellitus type 2, uncontrolled, without complications Start:28-Jan-2019 Instruction Type:Provider Instructions for Treatment How to access health informa tion online Indication:BMI 29.0-29.9,adult Start:20-Aug-2018 Instruction Type:Patient Education How to access health informa tion online - Detail Indication:BMI 29.0-29.9,adult Start:20-Aug-2018 Instruction Type:Patient Education Patient Instructions Indication:BMI 29.0-29.9,adult Start:20-Aug-2018 Instruction Type:Provider Instructions for Treatment How to access health informa tion online Indication:Diabetes mellitus type 2, uncontrolled, without complications Start:02-Jul-2018 Instruction Type:Patient Education How to access health informa tion online - Detail Indication:Diabetes mellitus type 2, uncontrolled, without complications Start:02-Jul-2018 Instruction Type:Patient Education Patient Instructions Indication:Diabetes mellitus type 2, uncontrolled, without complications Start:02-Jul-2018 Instruction Type:Provider Instructions for Treatment Patient Instructions Indication:Low back pain, episodic Start:30-Apr-2018 Instruction Type:Provider Instructions for Treatment How to access health informa tion online Indication:Rash Start:26-Mar-2018 Instruction Type:Patient Education How to access health informa tion online - Detail Indication:Rash Start:26-Mar-2018 Instruction Type:Patient Education Patient Instructions Indication:Rash Start:26-Mar-2018 Instruction Type:Provider Instructions for Treatment How to access health informa tion online Indication:Nonsmoker Start:21-Mar-2018 Instruction Type:Patient Education How to access health informa tion online - Detail Indication:Nonsmoker Start:21-Mar-2018 Instruction Type:Patient Education Patient Instructions Indication:Nonsmoker Start:21-Mar-2018 Instruction Type:Provider Instructions for Treatment How to access health informa tion online Indication:Nonsmoker Start:05-Mar-2018 Instruction Type:Patient Education How to access health informa tion online - Detail Indication:Nonsmoker Start:05-Mar-2018 Instruction Type:Patient Education Patient Instructions Indication:Nonsmoker Start:05-Mar-2018 Instruction Type:Provider Instructions for Treatment How to access health informa tion online Indication:BMI 28.0-28.9,adult Start:09-Jan-2018 Instruction Type:Patient Education How to access health informa tion online - Detail Indication:BMI 28.0-28.9,adult Start:09-Jan-2018 Instruction Type:Patient Education Patient Instructions Indication:BMI 28.0-28.9,adult Start:09-Jan-2018 Instruction Type:Provider Instructions for Treatment How to access health informa tion online Indication:Diabetes mellitus type 2, uncontrolled, without complications Start:02-Dec-2017 Instruction Type:Patient Education How to access health informa tion online - Detail Indication:Diabetes mellitus type 2, uncontrolled, without complications Start:02-Dec-2017 Instruction Type:Patient Education Patient Instructions Indication:Diabetes mellitus type 2, uncontrolled, without complications Start:02-Dec-2017 Instruction Type:Provider Instructions for Treatment How to access health informa tion online Indication:Nonsmoker Start:05-Nov-2017 Instruction Type:Patient Education How to access health informa tion online - Detail Indication:Nonsmoker Start:05-Nov-2017 Instruction Type:Patient Education Patient Instructions Indication:Nonsmoker Start:05-Nov-2017 Instruction Type:Provider Instructions for Treatment Patient Instructions Indication:Chest congestion Start:20-Sep-2017 Instruction Type:Provider Instructions for Treatment How to access health informa tion online Indication:Chest congestion Start:20-Sep-2017 Instruction Type:Patient Education How to access health informa tion online - Detail Indication:Chest congestion Start:20-Sep-2017 Instruction Type:Patient Education Patient Instructions Indication:Chest congestion Start:20-Sep-2017 Instruction Type:Provider Instructions for Treatment How to access health informa tion online Indication:Nonsmoker Start:07-Aug-2017 Instruction Type:Patient Education How to access health informa tion online - Detail Indication:Nonsmoker Start:07-Aug-2017 Instruction Type:Patient Education Patient Instructions Indication:Nonsmoker Start:07-Aug-2017 Instruction Type:Provider Instructions for Treatment How to access health informa tion online Indication:Diabetes mellitus type 2, uncontrolled, without complications Start:31-Jul-2017 Instruction Type:Patient Education How to access health informa tion online - Detail Indication:Diabetes mellitus type 2, uncontrolled, without complications Start:31-Jul-2017 Instruction Type:Patient Education Patient Instructions Indication:Diabetes mellitus type 2, uncontrolled, without complications Start:31-Jul-2017 Instruction Type:Provider Instructions for Treatment How to access health informa tion online Indication:Anxiety Start:22-Apr-2017 Instruction Type:Patient Education How to access health informa tion online - Detail Indication:Anxiety Start:22-Apr-2017 Instruction Type:Patient Education Patient Instructions Indication:Anxiety Start:22-Apr-2017 Instruction Type:Provider Instructions for Treatment How to access health informa tion online Indication:Diabetes mellitus type 2, uncontrolled, without complications Start:22-Apr-2017 Instruction Type:Patient Education How to access health informa tion online - Detail Indication:Diabetes mellitus type 2, uncontrolled, without complications Start:22-Apr-2017 Instruction Type:Patient Education Patient Instructions Indication:Diabetes mellitus type 2, uncontrolled, without complications Start:22-Apr-2017 Instruction Type:Provider Instructions for Treatment How to access health informa tion online Indication:Flu-like symptoms Start:17-Aug-2016 Instruction Type:Patient Education How to access health informa tion online - Detail Indication:Flu-like symptoms Start:17-Aug-2016 Instruction Type:Patient Education Patient Instructions Indication:Flu-like symptoms Start:17-Aug-2016 Instruction Type:Provider Instructions for Treatment How to access health informa tion online - Detail Indication:Diabetes mellitus type 2, uncontrolled, without complications Start:15-Sep-2015 Instruction Type:Patient Education How to access health informa tion online Indication:Diabetes mellitus type 2, uncontrolled, without complications Start:15-Sep-2015 Instruction Type:Patient Education Patient Instructions Indication:Diabetes mellitus type 2, uncontrolled, without complications Start:15-Sep-2015 Instruction Type:Provider Instructions for Treatment Patient Instructions Indication:Hypercholesteremia Start:03-Aug-2015 Instruction Type:Provider Instructions for Treatment How to access health informa tion online Indication:Diabetes mellitus type 2, uncontrolled, without complications Start:01-Jul-2015 Instruction Type:Patient Education How to access health informa tion online - Detail Indication:Diabetes mellitus type 2, uncontrolled, without complications Start:01-Jul-2015 Instruction Type:Patient Education Patient Instructions Indication:Diabetes mellitus type 2, uncontrolled, without complications Start:01-Jul-2015 Instruction Type:Provider Instructions for Treatment Patient Instructions Indication:Anxiety Start:16-Feb-2015 Instruction Type:Provider Instructions for Treatment How to access health informa tion online Indication:Anxiety Start:16-Feb-2015 Instruction Type:Patient Education How to access health informa tion online - Detail Indication:Anxiety Start:16-Feb-2015 Instruction Type:Patient Education Patient Instructions Indication:Anxiety Start:06-Aug-2012 Instruction Type:Provider Instructions for Treatment Patient Instructions Indication:Benign paroxysmal positional vertigo Start:30-Jun-2012 Instruction Type:Provider Instructions for Treatment [facility]; [facility] Work Phone: Instructions* Name Dates Details How to access health informa tion online Indication:Nonsmoker Start:24-Aug-2020 Instruction Type:Patient Education How to access health informa tion online - Detail Indication:Nonsmoker Start:24-Aug-2020 Instruction Type:Patient Education Patient Instructions Indication:Nonsmoker Start:24-Aug-2020 Instruction Type:Provider Instructions for Treatment How to access health informa tion online Indication:Nonsmoker Start:28-Apr-2020 Instruction Type:Patient Education How to access health informa tion online - Detail Indication:Nonsmoker Start:28-Apr-2020 Instruction Type:Patient Education Patient Instructions Indication:Nonsmoker Start:28-Apr-2020 Instruction Type:Provider Instructions for Treatment How to access health informa tion online Indication:Nonsmoker Start:12-Feb-2020 Instruction Type:Patient Education How to access health informa tion online - Detail Indication:Nonsmoker Start:12-Feb-2020 Instruction Type:Patient Education Patient Instructions Indication:Nonsmoker Start:12-Feb-2020 Instruction Type:Provider Instructions for Treatment How to access health informa tion online Indication:BMI 28.0-28.9,adult Start:21-Jan-2020 Instruction Type:Patient Education How to access health informa tion online - Detail Indication:BMI 28.0-28.9,adult Start:21-Jan-2020 Instruction Type:Patient Education Patient Instructions Indication:BMI 28.0-28.9,adult Start:21-Jan-2020 Instruction Type:Provider Instructions for Treatment How to access health informa tion online Indication:Diabetes mellitus type 2, uncontrolled, without complications Start:06-May-2019 Instruction Type:Patient Education How to access health informa tion online - Detail Indication:Diabetes mellitus type 2, uncontrolled, without complications Start:06-May-2019 Instruction Type:Patient Education Patient Instructions Indication:Diabetes mellitus type 2, uncontrolled, without complications Start:06-May-2019 Instruction Type:Provider Instructions for Treatment How to access health informa tion online Indication:Diabetes mellitus type 2, uncontrolled, without complications Start:28-Jan-2019 Instruction Type:Patient Education How to access health informa tion online - Detail Indication:Diabetes mellitus type 2, uncontrolled, without complications Start:28-Jan-2019 Instruction Type:Patient Education Patient Instructions Indication:Diabetes mellitus type 2, uncontrolled, without complications Start:28-Jan-2019 Instruction Type:Provider Instructions for Treatment How to access health informa tion online Indication:BMI 29.0-29.9,adult Start:20-Aug-2018 Instruction Type:Patient Education How to access health informa tion online - Detail Indication:BMI 29.0-29.9,adult Start:20-Aug-2018 Instruction Type:Patient Education Patient Instructions Indication:BMI 29.0-29.9,adult Start:20-Aug-2018 Instruction Type:Provider Instructions for Treatment How to access health informa tion online Indication:Diabetes mellitus type 2, uncontrolled, without complications Start:02-Jul-2018 Instruction Type:Patient Education How to access health informa tion online - Detail Indication:Diabetes mellitus type 2, uncontrolled, without complications Start:02-Jul-2018 Instruction Type:Patient Education Patient Instructions Indication:Diabetes mellitus type 2, uncontrolled, without complications Start:02-Jul-2018 Instruction Type:Provider Instructions for Treatment Patient Instructions Indication:Low back pain, episodic Start:30-Apr-2018 Instruction Type:Provider Instructions for Treatment How to access health informa tion online Indication:Rash Start:26-Mar-2018 Instruction Type:Patient Education How to access health informa tion online - Detail Indication:Rash Start:26-Mar-2018 Instruction Type:Patient Education Patient Instructions Indication:Rash Start:26-Mar-2018 Instruction Type:Provider Instructions for Treatment How to access health informa tion online Indication:Nonsmoker Start:21-Mar-2018 Instruction Type:Patient Education How to access health informa tion online - Detail Indication:Nonsmoker Start:21-Mar-2018 Instruction Type:Patient Education Patient Instructions Indication:Nonsmoker Start:21-Mar-2018 Instruction Type:Provider Instructions for Treatment How to access health informa tion online Indication:Nonsmoker Start:05-Mar-2018 Instruction Type:Patient Education How to access health informa tion online - Detail Indication:Nonsmoker Start:05-Mar-2018 Instruction Type:Patient Education Patient Instructions Indication:Nonsmoker Start:05-Mar-2018 Instruction Type:Provider Instructions for Treatment How to access health informa tion online Indication:BMI 28.0-28.9,adult Start:09-Jan-2018 Instruction Type:Patient Education How to access health informa tion online - Detail Indication:BMI 28.0-28.9,adult Start:09-Jan-2018 Instruction Type:Patient Education Patient Instructions Indication:BMI 28.0-28.9,adult Start:09-Jan-2018 Instruction Type:Provider Instructions for Treatment How to access health informa tion online Indication:Diabetes mellitus type 2, uncontrolled, without complications Start:02-Dec-2017 Instruction Type:Patient Education How to access health informa tion online - Detail Indication:Diabetes mellitus type 2, uncontrolled, without complications Start:02-Dec-2017 Instruction Type:Patient Education Patient Instructions Indication:Diabetes mellitus type 2, uncontrolled, without complications Start:02-Dec-2017 Instruction Type:Provider Instructions for Treatment How to access health informa tion online Indication:Nonsmoker Start:05-Nov-2017 Instruction Type:Patient Education How to access health informa tion online - Detail Indication:Nonsmoker Start:05-Nov-2017 Instruction Type:Patient Education Patient Instructions Indication:Nonsmoker Start:05-Nov-2017 Instruction Type:Provider Instructions for Treatment Patient Instructions Indication:Chest congestion Start:20-Sep-2017 Instruction Type:Provider Instructions for Treatment How to access health informa tion online Indication:Chest congestion Start:20-Sep-2017 Instruction Type:Patient Education How to access health informa tion online - Detail Indication:Chest congestion Start:20-Sep-2017 Instruction Type:Patient Education Patient Instructions Indication:Chest congestion Start:20-Sep-2017 Instruction Type:Provider Instructions for Treatment How to access health informa tion online Indication:Nonsmoker Start:07-Aug-2017 Instruction Type:Patient Education How to access health informa tion online - Detail Indication:Nonsmoker Start:07-Aug-2017 Instruction Type:Patient Education Patient Instructions Indication:Nonsmoker Start:07-Aug-2017 Instruction Type:Provider Instructions for Treatment How to access health informa tion online Indication:Diabetes mellitus type 2, uncontrolled, without complications Start:31-Jul-2017 Instruction Type:Patient Education How to access health informa tion online - Detail Indication:Diabetes mellitus type 2, uncontrolled, without complications Start:31-Jul-2017 Instruction Type:Patient Education Patient Instructions Indication:Diabetes mellitus type 2, uncontrolled, without complications Start:31-Jul-2017 Instruction Type:Provider Instructions for Treatment How to access health informa tion online Indication:Anxiety Start:22-Apr-2017 Instruction Type:Patient Education How to access health informa tion online - Detail Indication:Anxiety Start:22-Apr-2017 Instruction Type:Patient Education Patient Instructions Indication:Anxiety Start:22-Apr-2017 Instruction Type:Provider Instructions for Treatment How to access health informa tion online Indication:Diabetes mellitus type 2, uncontrolled, without complications Start:22-Apr-2017 Instruction Type:Patient Education How to access health informa tion online - Detail Indication:Diabetes mellitus type 2, uncontrolled, without complications Start:22-Apr-2017 Instruction Type:Patient Education Patient Instructions Indication:Diabetes mellitus type 2, uncontrolled, without complications Start:22-Apr-2017 Instruction Type:Provider Instructions for Treatment How to access health informa tion online Indication:Flu-like symptoms Start:17-Aug-2016 Instruction Type:Patient Education How to access health informa tion online - Detail Indication:Flu-like symptoms Start:17-Aug-2016 Instruction Type:Patient Education Patient Instructions Indication:Flu-like symptoms Start:17-Aug-2016 Instruction Type:Provider Instructions for Treatment How to access health informa tion online - Detail Indication:Diabetes mellitus type 2, uncontrolled, without complications Start:15-Sep-2015 Instruction Type:Patient Education How to access health informa tion online Indication:Diabetes mellitus type 2, uncontrolled, without complications Start:15-Sep-2015 Instruction Type:Patient Education Patient Instructions Indication:Diabetes mellitus type 2, uncontrolled, without complications Start:15-Sep-2015 Instruction Type:Provider Instructions for Treatment Patient Instructions Indication:Hypercholesteremia Start:03-Aug-2015 Instruction Type:Provider Instructions for Treatment How to access health informa tion online Indication:Diabetes mellitus type 2, uncontrolled, without complications Start:01-Jul-2015 Instruction Type:Patient Education How to access health informa tion online - Detail Indication:Diabetes mellitus type 2, uncontrolled, without complications Start:01-Jul-2015 Instruction Type:Patient Education Patient Instructions Indication:Diabetes mellitus type 2, uncontrolled, without complications Start:01-Jul-2015 Instruction Type:Provider Instructions for Treatment Patient Instructions Indication:Anxiety Start:16-Feb-2015 Instruction Type:Provider Instructions for Treatment How to access health informa tion online Indication:Anxiety Start:16-Feb-2015 Instruction Type:Patient Education How to access health informa tion online - Detail Indication:Anxiety Start:16-Feb-2015 Instruction Type:Patient Education Patient Instructions Indication:Anxiety Start:06-Aug-2012 Instruction Type:Provider Instructions for Treatment Patient Instructions Indication:Benign paroxysmal positional vertigo Start:30-Jun-2012 Instruction Type:Provider Instructions for Treatment [facility]; [facility] Work Phone: Instructions* Name Dates Details How to Access Health Informa tion Online using Patient Portal and [employer]rd [employer] Apps Indication:Nonsmoker Start:20-Mar-2021 Instruction Type:Patient Education Patient Instructions Indication:Nonsmoker Start:20-Mar-2021 Instruction Type:Provider Instructions for Treatment How to access health informa tion online Indication:Nonsmoker Start:24-Aug-2020 Instruction Type:Patient Education How to access health informa tion online - Detail Indication:Nonsmoker Start:24-Aug-2020 Instruction Type:Patient Education Patient Instructions Indication:Nonsmoker Start:24-Aug-2020 Instruction Type:Provider Instructions for Treatment How to access health informa tion online Indication:Nonsmoker Start:28-Apr-2020 Instruction Type:Patient Education How to access health informa tion online - Detail Indication:Nonsmoker Start:28-Apr-2020 Instruction Type:Patient Education Patient Instructions Indication:Nonsmoker Start:28-Apr-2020 Instruction Type:Provider Instructions for Treatment How to access health informa tion online Indication:Nonsmoker Start:12-Feb-2020 Instruction Type:Patient Education How to access health informa tion online - Detail Indication:Nonsmoker Start:12-Feb-2020 Instruction Type:Patient Education Patient Instructions Indication:Nonsmoker Start:12-Feb-2020 Instruction Type:Provider Instructions for Treatment How to access health informa tion online Indication:BMI 28.0-28.9,adult Start:21-Jan-2020 Instruction Type:Patient Education How to access health informa tion online - Detail Indication:BMI 28.0-28.9,adult Start:21-Jan-2020 Instruction Type:Patient Education Patient Instructions Indication:BMI 28.0-28.9,adult Start:21-Jan-2020 Instruction Type:Provider Instructions for Treatment How to access health informa tion online Indication:Diabetes mellitus type 2, uncontrolled, without complications Start:06-May-2019 Instruction Type:Patient Education How to access health informa tion online - Detail Indication:Diabetes mellitus type 2, uncontrolled, without complications Start:06-May-2019 Instruction Type:Patient Education Patient Instructions Indication:Diabetes mellitus type 2, uncontrolled, without complications Start:06-May-2019 Instruction Type:Provider Instructions for Treatment How to access health informa tion online Indication:Diabetes mellitus type 2, uncontrolled, without complications Start:28-Jan-2019 Instruction Type:Patient Education How to access health informa tion online - Detail Indication:Diabetes mellitus type 2, uncontrolled, without complications Start:28-Jan-2019 Instruction Type:Patient Education Patient Instructions Indication:Diabetes mellitus type 2, uncontrolled, without complications Start:28-Jan-2019 Instruction Type:Provider Instructions for Treatment How to access health informa tion online Indication:BMI 29.0-29.9,adult Start:20-Aug-2018 Instruction Type:Patient Education How to access health informa tion online - Detail Indication:BMI 29.0-29.9,adult Start:20-Aug-2018 Instruction Type:Patient Education Patient Instructions Indication:BMI 29.0-29.9,adult Start:20-Aug-2018 Instruction Type:Provider Instructions for Treatment How to access health informa tion online Indication:Diabetes mellitus type 2, uncontrolled, without complications Start:02-Jul-2018 Instruction Type:Patient Education How to access health informa tion online - Detail Indication:Diabetes mellitus type 2, uncontrolled, without complications Start:02-Jul-2018 Instruction Type:Patient Education Patient Instructions Indication:Diabetes mellitus type 2, uncontrolled, without complications Start:02-Jul-2018 Instruction Type:Provider Instructions for Treatment Patient Instructions Indication:Low back pain, episodic Start:30-Apr-2018 Instruction Type:Provider Instructions for Treatment How to access health informa tion online Indication:Rash Start:26-Mar-2018 Instruction Type:Patient Education How to access health informa tion online - Detail Indication:Rash Start:26-Mar-2018 Instruction Type:Patient Education Patient Instructions Indication:Rash Start:26-Mar-2018 Instruction Type:Provider Instructions for Treatment How to access health informa tion online Indication:Nonsmoker Start:21-Mar-2018 Instruction Type:Patient Education How to access health informa tion online - Detail Indication:Nonsmoker Start:21-Mar-2018 Instruction Type:Patient Education Patient Instructions Indication:Nonsmoker Start:21-Mar-2018 Instruction Type:Provider Instructions for Treatment How to access health informa tion online Indication:Nonsmoker Start:05-Mar-2018 Instruction Type:Patient Education How to access health informa tion online - Detail Indication:Nonsmoker Start:05-Mar-2018 Instruction Type:Patient Education Patient Instructions Indication:Nonsmoker Start:05-Mar-2018 Instruction Type:Provider Instructions for Treatment How to access health informa tion online Indication:BMI 28.0-28.9,adult Start:09-Jan-2018 Instruction Type:Patient Education How to access health informa tion online - Detail Indication:BMI 28.0-28.9,adult Start:09-Jan-2018 Instruction Type:Patient Education Patient Instructions Indication:BMI 28.0-28.9,adult Start:09-Jan-2018 Instruction Type:Provider Instructions for Treatment How to access health informa tion online Indication:Diabetes mellitus type 2, uncontrolled, without complications Start:02-Dec-2017 Instruction Type:Patient Education How to access health informa tion online - Detail Indication:Diabetes mellitus type 2, uncontrolled, without complications Start:02-Dec-2017 Instruction Type:Patient Education Patient Instructions Indication:Diabetes mellitus type 2, uncontrolled, without complications Start:02-Dec-2017 Instruction Type:Provider Instructions for Treatment How to access health informa tion online Indication:Nonsmoker Start:05-Nov-2017 Instruction Type:Patient Education How to access health informa tion online - Detail Indication:Nonsmoker Start:05-Nov-2017 Instruction Type:Patient Education Patient Instructions Indication:Nonsmoker Start:05-Nov-2017 Instruction Type:Provider Instructions for Treatment Patient Instructions Indication:Chest congestion Start:20-Sep-2017 Instruction Type:Provider Instructions for Treatment How to access health informa tion online Indication:Chest congestion Start:20-Sep-2017 Instruction Type:Patient Education How to access health informa tion online - Detail Indication:Chest congestion Start:20-Sep-2017 Instruction Type:Patient Education Patient Instructions Indication:Chest congestion Start:20-Sep-2017 Instruction Type:Provider Instructions for Treatment How to access health informa tion online Indication:Nonsmoker Start:07-Aug-2017 Instruction Type:Patient Education How to access health informa tion online - Detail Indication:Nonsmoker Start:07-Aug-2017 Instruction Type:Patient Education Patient Instructions Indication:Nonsmoker Start:07-Aug-2017 Instruction Type:Provider Instructions for Treatment How to access health informa tion online Indication:Diabetes mellitus type 2, uncontrolled, without complications Start:31-Jul-2017 Instruction Type:Patient Education How to access health informa tion online - Detail Indication:Diabetes mellitus type 2, uncontrolled, without complications Start:31-Jul-2017 Instruction Type:Patient Education Patient Instructions Indication:Diabetes mellitus type 2, uncontrolled, without complications Start:31-Jul-2017 Instruction Type:Provider Instructions for Treatment How to access health informa tion online Indication:Anxiety Start:22-Apr-2017 Instruction Type:Patient Education How to access health informa tion online - Detail Indication:Anxiety Start:22-Apr-2017 Instruction Type:Patient Education Patient Instructions Indication:Anxiety Start:22-Apr-2017 Instruction Type:Provider Instructions for Treatment How to access health informa tion online Indication:Diabetes mellitus type 2, uncontrolled, without complications Start:22-Apr-2017 Instruction Type:Patient Education How to access health informa tion online - Detail Indication:Diabetes mellitus type 2, uncontrolled, without complications Start:22-Apr-2017 Instruction Type:Patient Education Patient Instructions Indication:Diabetes mellitus type 2, uncontrolled, without complications Start:22-Apr-2017 Instruction Type:Provider Instructions for Treatment How to access health informa tion online Indication:Flu-like symptoms Start:17-Aug-2016 Instruction Type:Patient Education How to access health informa tion online - Detail Indication:Flu-like symptoms Start:17-Aug-2016 Instruction Type:Patient Education Patient Instructions Indication:Flu-like symptoms Start:17-Aug-2016 Instruction Type:Provider Instructions for Treatment How to access health informa tion online - Detail Indication:Diabetes mellitus type 2, uncontrolled, without complications Start:15-Sep-2015 Instruction Type:Patient Education How to access health informa tion online Indication:Diabetes mellitus type 2, uncontrolled, without complications Start:15-Sep-2015 Instruction Type:Patient Education Patient Instructions Indication:Diabetes mellitus type 2, uncontrolled, without complications Start:15-Sep-2015 Instruction Type:Provider Instructions for Treatment Patient Instructions Indication:Hypercholesteremia Start:03-Aug-2015 Instruction Type:Provider Instructions for Treatment How to access health informa tion online Indication:Diabetes mellitus type 2, uncontrolled, without complications Start:01-Jul-2015 Instruction Type:Patient Education How to access health informa tion online - Detail Indication:Diabetes mellitus type 2, uncontrolled, without complications Start:01-Jul-2015 Instruction Type:Patient Education Patient Instructions Indication:Diabetes mellitus type 2, uncontrolled, without complications Start:01-Jul-2015 Instruction Type:Provider Instructions for Treatment Patient Instructions Indication:Anxiety Start:16-Feb-2015 Instruction Type:Provider Instructions for Treatment How to access health informa tion online Indication:Anxiety Start:16-Feb-2015 Instruction Type:Patient Education How to access health informa tion online - Detail Indication:Anxiety Start:16-Feb-2015 Instruction Type:Patient Education Patient Instructions Indication:Anxiety Start:06-Aug-2012 Instruction Type:Provider Instructions for Treatment Patient Instructions Indication:Benign paroxysmal positional vertigo Start:30-Jun-2012 Instruction Type:Provider Instructions for Treatment [facility]; [facility] Work Phone: Instructions* Name Dates Details How to Access Health Informa tion Online using Patient Portal and [employer]rd [employer] Apps Indication:Nonsmoker Start:20-Mar-2021 Instruction Type:Patient Education Patient Instructions Indication:Nonsmoker Start:20-Mar-2021 Instruction Type:Provider Instructions for Treatment How to access health informa tion online Indication:Nonsmoker Start:24-Aug-2020 Instruction Type:Patient Education How to access health informa tion online - Detail Indication:Nonsmoker Start:24-Aug-2020 Instruction Type:Patient Education Patient Instructions Indication:Nonsmoker Start:24-Aug-2020 Instruction Type:Provider Instructions for Treatment How to access health informa tion online Indication:Nonsmoker Start:28-Apr-2020 Instruction Type:Patient Education How to access health informa tion online - Detail Indication:Nonsmoker Start:28-Apr-2020 Instruction Type:Patient Education Patient Instructions Indication:Nonsmoker Start:28-Apr-2020 Instruction Type:Provider Instructions for Treatment How to access health informa tion online Indication:Nonsmoker Start:12-Feb-2020 Instruction Type:Patient Education How to access health informa tion online - Detail Indication:Nonsmoker Start:12-Feb-2020 Instruction Type:Patient Education Patient Instructions Indication:Nonsmoker Start:12-Feb-2020 Instruction Type:Provider Instructions for Treatment How to access health informa tion online Indication:BMI 28.0-28.9,adult Start:21-Jan-2020 Instruction Type:Patient Education How to access health informa tion online - Detail Indication:BMI 28.0-28.9,adult Start:21-Jan-2020 Instruction Type:Patient Education Patient Instructions Indication:BMI 28.0-28.9,adult Start:21-Jan-2020 Instruction Type:Provider Instructions for Treatment How to access health informa tion online Indication:Diabetes mellitus type 2, uncontrolled, without complications Start:06-May-2019 Instruction Type:Patient Education How to access health informa tion online - Detail Indication:Diabetes mellitus type 2, uncontrolled, without complications Start:06-May-2019 Instruction Type:Patient Education Patient Instructions Indication:Diabetes mellitus type 2, uncontrolled, without complications Start:06-May-2019 Instruction Type:Provider Instructions for Treatment How to access health informa tion online Indication:Diabetes mellitus type 2, uncontrolled, without complications Start:28-Jan-2019 Instruction Type:Patient Education How to access health informa tion online - Detail Indication:Diabetes mellitus type 2, uncontrolled, without complications Start:28-Jan-2019 Instruction Type:Patient Education Patient Instructions Indication:Diabetes mellitus type 2, uncontrolled, without complications Start:28-Jan-2019 Instruction Type:Provider Instructions for Treatment How to access health informa tion online Indication:BMI 29.0-29.9,adult Start:20-Aug-2018 Instruction Type:Patient Education How to access health informa tion online - Detail Indication:BMI 29.0-29.9,adult Start:20-Aug-2018 Instruction Type:Patient Education Patient Instructions Indication:BMI 29.0-29.9,adult Start:20-Aug-2018 Instruction Type:Provider Instructions for Treatment How to access health informa tion online Indication:Diabetes mellitus type 2, uncontrolled, without complications Start:02-Jul-2018 Instruction Type:Patient Education How to access health informa tion online - Detail Indication:Diabetes mellitus type 2, uncontrolled, without complications Start:02-Jul-2018 Instruction Type:Patient Education Patient Instructions Indication:Diabetes mellitus type 2, uncontrolled, without complications Start:02-Jul-2018 Instruction Type:Provider Instructions for Treatment Patient Instructions Indication:Low back pain, episodic Start:30-Apr-2018 Instruction Type:Provider Instructions for Treatment How to access health informa tion online Indication:Rash Start:26-Mar-2018 Instruction Type:Patient Education How to access health informa tion online - Detail Indication:Rash Start:26-Mar-2018 Instruction Type:Patient Education Patient Instructions Indication:Rash Start:26-Mar-2018 Instruction Type:Provider Instructions for Treatment How to access health informa tion online Indication:Nonsmoker Start:21-Mar-2018 Instruction Type:Patient Education How to access health informa tion online - Detail Indication:Nonsmoker Start:21-Mar-2018 Instruction Type:Patient Education Patient Instructions Indication:Nonsmoker Start:21-Mar-2018 Instruction Type:Provider Instructions for Treatment How to access health informa tion online Indication:Nonsmoker Start:05-Mar-2018 Instruction Type:Patient Education How to access health informa tion online - Detail Indication:Nonsmoker Start:05-Mar-2018 Instruction Type:Patient Education Patient Instructions Indication:Nonsmoker Start:05-Mar-2018 Instruction Type:Provider Instructions for Treatment How to access health informa tion online Indication:BMI 28.0-28.9,adult Start:09-Jan-2018 Instruction Type:Patient Education How to access health informa tion online - Detail Indication:BMI 28.0-28.9,adult Start:09-Jan-2018 Instruction Type:Patient Education Patient Instructions Indication:BMI 28.0-28.9,adult Start:09-Jan-2018 Instruction Type:Provider Instructions for Treatment How to access health informa tion online Indication:Diabetes mellitus type 2, uncontrolled, without complications Start:02-Dec-2017 Instruction Type:Patient Education How to access health informa tion online - Detail Indication:Diabetes mellitus type 2, uncontrolled, without complications Start:02-Dec-2017 Instruction Type:Patient Education Patient Instructions Indication:Diabetes mellitus type 2, uncontrolled, without complications Start:02-Dec-2017 Instruction Type:Provider Instructions for Treatment How to access health informa tion online Indication:Nonsmoker Start:05-Nov-2017 Instruction Type:Patient Education How to access health informa tion online - Detail Indication:Nonsmoker Start:05-Nov-2017 Instruction Type:Patient Education Patient Instructions Indication:Nonsmoker Start:05-Nov-2017 Instruction Type:Provider Instructions for Treatment Patient Instructions Indication:Chest congestion Start:20-Sep-2017 Instruction Type:Provider Instructions for Treatment How to access health informa tion online Indication:Chest congestion Start:20-Sep-2017 Instruction Type:Patient Education How to access health informa tion online - Detail Indication:Chest congestion Start:20-Sep-2017 Instruction Type:Patient Education Patient Instructions Indication:Chest congestion Start:20-Sep-2017 Instruction Type:Provider Instructions for Treatment How to access health informa tion online Indication:Nonsmoker Start:07-Aug-2017 Instruction Type:Patient Education How to access health informa tion online - Detail Indication:Nonsmoker Start:07-Aug-2017 Instruction Type:Patient Education Patient Instructions Indication:Nonsmoker Start:07-Aug-2017 Instruction Type:Provider Instructions for Treatment How to access health informa tion online Indication:Diabetes mellitus type 2, uncontrolled, without complications Start:31-Jul-2017 Instruction Type:Patient Education How to access health informa tion online - Detail Indication:Diabetes mellitus type 2, uncontrolled, without complications Start:31-Jul-2017 Instruction Type:Patient Education Patient Instructions Indication:Diabetes mellitus type 2, uncontrolled, without complications Start:31-Jul-2017 Instruction Type:Provider Instructions for Treatment How to access health informa tion online Indication:Anxiety Start:22-Apr-2017 Instruction Type:Patient Education How to access health informa tion online - Detail Indication:Anxiety Start:22-Apr-2017 Instruction Type:Patient Education Patient Instructions Indication:Anxiety Start:22-Apr-2017 Instruction Type:Provider Instructions for Treatment How to access health informa tion online Indication:Diabetes mellitus type 2, uncontrolled, without complications Start:22-Apr-2017 Instruction Type:Patient Education How to access health informa tion online - Detail Indication:Diabetes mellitus type 2, uncontrolled, without complications Start:22-Apr-2017 Instruction Type:Patient Education Patient Instructions Indication:Diabetes mellitus type 2, uncontrolled, without complications Start:22-Apr-2017 Instruction Type:Provider Instructions for Treatment How to access health informa tion online Indication:Flu-like symptoms Start:17-Aug-2016 Instruction Type:Patient Education How to access health informa tion online - Detail Indication:Flu-like symptoms Start:17-Aug-2016 Instruction Type:Patient Education Patient Instructions Indication:Flu-like symptoms Start:17-Aug-2016 Instruction Type:Provider Instructions for Treatment How to access health informa tion online - Detail Indication:Diabetes mellitus type 2, uncontrolled, without complications Start:15-Sep-2015 Instruction Type:Patient Education How to access health informa tion online Indication:Diabetes mellitus type 2, uncontrolled, without complications Start:15-Sep-2015 Instruction Type:Patient Education Patient Instructions Indication:Diabetes mellitus type 2, uncontrolled, without complications Start:15-Sep-2015 Instruction Type:Provider Instructions for Treatment Patient Instructions Indication:Hypercholesteremia Start:03-Aug-2015 Instruction Type:Provider Instructions for Treatment How to access health informa tion online Indication:Diabetes mellitus type 2, uncontrolled, without complications Start:01-Jul-2015 Instruction Type:Patient Education How to access health informa tion online - Detail Indication:Diabetes mellitus type 2, uncontrolled, without complications Start:01-Jul-2015 Instruction Type:Patient Education Patient Instructions Indication:Diabetes mellitus type 2, uncontrolled, without complications Start:01-Jul-2015 Instruction Type:Provider Instructions for Treatment Patient Instructions Indication:Anxiety Start:16-Feb-2015 Instruction Type:Provider Instructions for Treatment How to access health informa tion online Indication:Anxiety Start:16-Feb-2015 Instruction Type:Patient Education How to access health informa tion online - Detail Indication:Anxiety Start:16-Feb-2015 Instruction Type:Patient Education Patient Instructions Indication:Anxiety Start:06-Aug-2012 Instruction Type:Provider Instructions for Treatment Patient Instructions Indication:Benign paroxysmal positional vertigo Start:30-Jun-2012 Instruction Type:Provider Instructions for Treatment [facility]; [facility] Work Phone: Instructions* Name Dates Details Patient Instructions Indication:Nonsmoker Start:12-May-2021 Instruction Type:Provider Instructions for Treatment How to Access Health Informa tion Online using Patient Portal and [employer]rd [employer] Apps Indication:Nonsmoker Start:12-May-2021 Instruction Type:Patient Education How to Access Health Informa tion Online using Patient Portal and [employer] Apps Indication:Nonsmoker Start:20-Mar-2021 Instruction Type:Patient Education Patient Instructions Indication:Nonsmoker Start:20-Mar-2021 Instruction Type:Provider Instructions for Treatment How to access health informa tion online Indication:Nonsmoker Start:24-Aug-2020 Instruction Type:Patient Education How to access health informa tion online - Detail Indication:Nonsmoker Start:24-Aug-2020 Instruction Type:Patient Education Patient Instructions Indication:Nonsmoker Start:24-Aug-2020 Instruction Type:Provider Instructions for Treatment How to access health informa tion online Indication:Nonsmoker Start:28-Apr-2020 Instruction Type:Patient Education How to access health informa tion online - Detail Indication:Nonsmoker Start:28-Apr-2020 Instruction Type:Patient Education Patient Instructions Indication:Nonsmoker Start:28-Apr-2020 Instruction Type:Provider Instructions for Treatment How to access health informa tion online Indication:Nonsmoker Start:12-Feb-2020 Instruction Type:Patient Education How to access health informa tion online - Detail Indication:Nonsmoker Start:12-Feb-2020 Instruction Type:Patient Education Patient Instructions Indication:Nonsmoker Start:12-Feb-2020 Instruction Type:Provider Instructions for Treatment How to access health informa tion online Indication:BMI 28.0-28.9,adult Start:21-Jan-2020 Instruction Type:Patient Education How to access health informa tion online - Detail Indication:BMI 28.0-28.9,adult Start:21-Jan-2020 Instruction Type:Patient Education Patient Instructions Indication:BMI 28.0-28.9,adult Start:21-Jan-2020 Instruction Type:Provider Instructions for Treatment How to access health informa tion online Indication:Diabetes mellitus type 2, uncontrolled, without complications Start:06-May-2019 Instruction Type:Patient Education How to access health informa tion online - Detail Indication:Diabetes mellitus type 2, uncontrolled, without complications Start:06-May-2019 Instruction Type:Patient Education Patient Instructions Indication:Diabetes mellitus type 2, uncontrolled, without complications Start:06-May-2019 Instruction Type:Provider Instructions for Treatment How to access health informa tion online Indication:Diabetes mellitus type 2, uncontrolled, without complications Start:28-Jan-2019 Instruction Type:Patient Education How to access health informa tion online - Detail Indication:Diabetes mellitus type 2, uncontrolled, without complications Start:28-Jan-2019 Instruction Type:Patient Education Patient Instructions Indication:Diabetes mellitus type 2, uncontrolled, without complications Start:28-Jan-2019 Instruction Type:Provider Instructions for Treatment How to access health informa tion online Indication:BMI 29.0-29.9,adult Start:20-Aug-2018 Instruction Type:Patient Education How to access health informa tion online - Detail Indication:BMI 29.0-29.9,adult Start:20-Aug-2018 Instruction Type:Patient Education Patient Instructions Indication:BMI 29.0-29.9,adult Start:20-Aug-2018 Instruction Type:Provider Instructions for Treatment How to access health informa tion online Indication:Diabetes mellitus type 2, uncontrolled, without complications Start:02-Jul-2018 Instruction Type:Patient Education How to access health informa tion online - Detail Indication:Diabetes mellitus type 2, uncontrolled, without complications Start:02-Jul-2018 Instruction Type:Patient Education Patient Instructions Indication:Diabetes mellitus type 2, uncontrolled, without complications Start:02-Jul-2018 Instruction Type:Provider Instructions for Treatment Patient Instructions Indication:Low back pain, episodic Start:30-Apr-2018 Instruction Type:Provider Instructions for Treatment How to access health informa tion online Indication:Rash Start:26-Mar-2018 Instruction Type:Patient Education How to access health informa tion online - Detail Indication:Rash Start:26-Mar-2018 Instruction Type:Patient Education Patient Instructions Indication:Rash Start:26-Mar-2018 Instruction Type:Provider Instructions for Treatment How to access health informa tion online Indication:Nonsmoker Start:21-Mar-2018 Instruction Type:Patient Education How to access health informa tion online - Detail Indication:Nonsmoker Start:21-Mar-2018 Instruction Type:Patient Education Patient Instructions Indication:Nonsmoker Start:21-Mar-2018 Instruction Type:Provider Instructions for Treatment How to access health informa tion online Indication:Nonsmoker Start:05-Mar-2018 Instruction Type:Patient Education How to access health informa tion online - Detail Indication:Nonsmoker Start:05-Mar-2018 Instruction Type:Patient Education Patient Instructions Indication:Nonsmoker Start:05-Mar-2018 Instruction Type:Provider Instructions for Treatment How to access health informa tion online Indication:BMI 28.0-28.9,adult Start:09-Jan-2018 Instruction Type:Patient Education How to access health informa tion online - Detail Indication:BMI 28.0-28.9,adult Start:09-Jan-2018 Instruction Type:Patient Education Patient Instructions Indication:BMI 28.0-28.9,adult Start:09-Jan-2018 Instruction Type:Provider Instructions for Treatment How to access health informa tion online Indication:Diabetes mellitus type 2, uncontrolled, without complications Start:02-Dec-2017 Instruction Type:Patient Education How to access health informa tion online - Detail Indication:Diabetes mellitus type 2, uncontrolled, without complications Start:02-Dec-2017 Instruction Type:Patient Education Patient Instructions Indication:Diabetes mellitus type 2, uncontrolled, without complications Start:02-Dec-2017 Instruction Type:Provider Instructions for Treatment How to access health informa tion online Indication:Nonsmoker Start:05-Nov-2017 Instruction Type:Patient Education How to access health informa tion online - Detail Indication:Nonsmoker Start:05-Nov-2017 Instruction Type:Patient Education Patient Instructions Indication:Nonsmoker Start:05-Nov-2017 Instruction Type:Provider Instructions for Treatment Patient Instructions Indication:Chest congestion Start:20-Sep-2017 Instruction Type:Provider Instructions for Treatment How to access health informa tion online Indication:Chest congestion Start:20-Sep-2017 Instruction Type:Patient Education How to access health informa tion online - Detail Indication:Chest congestion Start:20-Sep-2017 Instruction Type:Patient Education Patient Instructions Indication:Chest congestion Start:20-Sep-2017 Instruction Type:Provider Instructions for Treatment How to access health informa tion online Indication:Nonsmoker Start:07-Aug-2017 Instruction Type:Patient Education How to access health informa tion online - Detail Indication:Nonsmoker Start:07-Aug-2017 Instruction Type:Patient Education Patient Instructions Indication:Nonsmoker Start:07-Aug-2017 Instruction Type:Provider Instructions for Treatment How to access health informa tion online Indication:Diabetes mellitus type 2, uncontrolled, without complications Start:31-Jul-2017 Instruction Type:Patient Education How to access health informa tion online - Detail Indication:Diabetes mellitus type 2, uncontrolled, without complications Start:31-Jul-2017 Instruction Type:Patient Education Patient Instructions Indication:Diabetes mellitus type 2, uncontrolled, without complications Start:31-Jul-2017 Instruction Type:Provider Instructions for Treatment How to access health informa tion online Indication:Anxiety Start:22-Apr-2017 Instruction Type:Patient Education How to access health informa tion online - Detail Indication:Anxiety Start:22-Apr-2017 Instruction Type:Patient Education Patient Instructions Indication:Anxiety Start:22-Apr-2017 Instruction Type:Provider Instructions for Treatment How to access health informa tion online Indication:Diabetes mellitus type 2, uncontrolled, without complications Start:22-Apr-2017 Instruction Type:Patient Education How to access health informa tion online - Detail Indication:Diabetes mellitus type 2, uncontrolled, without complications Start:22-Apr-2017 Instruction Type:Patient Education Patient Instructions Indication:Diabetes mellitus type 2, uncontrolled, without complications Start:22-Apr-2017 Instruction Type:Provider Instructions for Treatment How to access health informa tion online Indication:Flu-like symptoms Start:17-Aug-2016 Instruction Type:Patient Education How to access health informa tion online - Detail Indication:Flu-like symptoms Start:17-Aug-2016 Instruction Type:Patient Education Patient Instructions Indication:Flu-like symptoms Start:17-Aug-2016 Instruction Type:Provider Instructions for Treatment How to access health informa tion online - Detail Indication:Diabetes mellitus type 2, uncontrolled, without complications Start:15-Sep-2015 Instruction Type:Patient Education How to access health informa tion online Indication:Diabetes mellitus type 2, uncontrolled, without complications Start:15-Sep-2015 Instruction Type:Patient Education Patient Instructions Indication:Diabetes mellitus type 2, uncontrolled, without complications Start:15-Sep-2015 Instruction Type:Provider Instructions for Treatment Patient Instructions Indication:Hypercholesteremia Start:03-Aug-2015 Instruction Type:Provider Instructions for Treatment How to access health informa tion online Indication:Diabetes mellitus type 2, uncontrolled, without complications Start:01-Jul-2015 Instruction Type:Patient Education How to access health informa tion online - Detail Indication:Diabetes mellitus type 2, uncontrolled, without complications Start:01-Jul-2015 Instruction Type:Patient Education Patient Instructions Indication:Diabetes mellitus type 2, uncontrolled, without complications Start:01-Jul-2015 Instruction Type:Provider Instructions for Treatment Patient Instructions Indication:Anxiety Start:16-Feb-2015 Instruction Type:Provider Instructions for Treatment How to access health informa tion online Indication:Anxiety Start:16-Feb-2015 Instruction Type:Patient Education How to access health informa tion online - Detail Indication:Anxiety Start:16-Feb-2015 Instruction Type:Patient Education Patient Instructions Indication:Anxiety Start:06-Aug-2012 Instruction Type:Provider Instructions for Treatment Patient Instructions Indication:Benign paroxysmal positional vertigo Start:30-Jun-2012 Instruction Type:Provider Instructions for Treatment [facility]; [facility] Work Phone: Instructions* Name Dates Details Patient Instructions Indication:Nonsmoker Start:12-May-2021 Instruction Type:Provider Instructions for Treatment How to Access Health Informa tion Online using Patient Portal and [employer]rd [employer] Apps Indication:Nonsmoker Start:12-May-2021 Instruction Type:Patient Education How to Access Health Informa tion Online using Patient Portal and [employer]rd [employer] Apps Indication:Nonsmoker Start:20-Mar-2021 Instruction Type:Patient Education Patient Instructions Indication:Nonsmoker Start:20-Mar-2021 Instruction Type:Provider Instructions for Treatment How to access health informa tion online Indication:Nonsmoker Start:24-Aug-2020 Instruction Type:Patient Education How to access health informa tion online - Detail Indication:Nonsmoker Start:24-Aug-2020 Instruction Type:Patient Education Patient Instructions Indication:Nonsmoker Start:24-Aug-2020 Instruction Type:Provider Instructions for Treatment How to access health informa tion online Indication:Nonsmoker Start:28-Apr-2020 Instruction Type:Patient Education How to access health informa tion online - Detail Indication:Nonsmoker Start:28-Apr-2020 Instruction Type:Patient Education Patient Instructions Indication:Nonsmoker Start:28-Apr-2020 Instruction Type:Provider Instructions for Treatment How to access health informa tion online Indication:Nonsmoker Start:12-Feb-2020 Instruction Type:Patient Education How to access health informa tion online - Detail Indication:Nonsmoker Start:12-Feb-2020 Instruction Type:Patient Education Patient Instructions Indication:Nonsmoker Start:12-Feb-2020 Instruction Type:Provider Instructions for Treatment How to access health informa tion online Indication:BMI 28.0-28.9,adult Start:21-Jan-2020 Instruction Type:Patient Education How to access health informa tion online - Detail Indication:BMI 28.0-28.9,adult Start:21-Jan-2020 Instruction Type:Patient Education Patient Instructions Indication:BMI 28.0-28.9,adult Start:21-Jan-2020 Instruction Type:Provider Instructions for Treatment How to access health informa tion online Indication:Diabetes mellitus type 2, uncontrolled, without complications Start:06-May-2019 Instruction Type:Patient Education How to access health informa tion online - Detail Indication:Diabetes mellitus type 2, uncontrolled, without complications Start:06-May-2019 Instruction Type:Patient Education Patient Instructions Indication:Diabetes mellitus type 2, uncontrolled, without complications Start:06-May-2019 Instruction Type:Provider Instructions for Treatment How to access health informa tion online Indication:Diabetes mellitus type 2, uncontrolled, without complications Start:28-Jan-2019 Instruction Type:Patient Education How to access health informa tion online - Detail Indication:Diabetes mellitus type 2, uncontrolled, without complications Start:28-Jan-2019 Instruction Type:Patient Education Patient Instructions Indication:Diabetes mellitus type 2, uncontrolled, without complications Start:28-Jan-2019 Instruction Type:Provider Instructions for Treatment How to access health informa tion online Indication:BMI 29.0-29.9,adult Start:20-Aug-2018 Instruction Type:Patient Education How to access health informa tion online - Detail Indication:BMI 29.0-29.9,adult Start:20-Aug-2018 Instruction Type:Patient Education Patient Instructions Indication:BMI 29.0-29.9,adult Start:20-Aug-2018 Instruction Type:Provider Instructions for Treatment How to access health informa tion online Indication:Diabetes mellitus type 2, uncontrolled, without complications Start:02-Jul-2018 Instruction Type:Patient Education How to access health informa tion online - Detail Indication:Diabetes mellitus type 2, uncontrolled, without complications Start:02-Jul-2018 Instruction Type:Patient Education Patient Instructions Indication:Diabetes mellitus type 2, uncontrolled, without complications Start:02-Jul-2018 Instruction Type:Provider Instructions for Treatment Patient Instructions Indication:Low back pain, episodic Start:30-Apr-2018 Instruction Type:Provider Instructions for Treatment How to access health informa tion online Indication:Rash Start:26-Mar-2018 Instruction Type:Patient Education How to access health informa tion online - Detail Indication:Rash Start:26-Mar-2018 Instruction Type:Patient Education Patient Instructions Indication:Rash Start:26-Mar-2018 Instruction Type:Provider Instructions for Treatment How to access health informa tion online Indication:Nonsmoker Start:21-Mar-2018 Instruction Type:Patient Education How to access health informa tion online - Detail Indication:Nonsmoker Start:21-Mar-2018 Instruction Type:Patient Education Patient Instructions Indication:Nonsmoker Start:21-Mar-2018 Instruction Type:Provider Instructions for Treatment How to access health informa tion online Indication:Nonsmoker Start:05-Mar-2018 Instruction Type:Patient Education How to access health informa tion online - Detail Indication:Nonsmoker Start:05-Mar-2018 Instruction Type:Patient Education Patient Instructions Indication:Nonsmoker Start:05-Mar-2018 Instruction Type:Provider Instructions for Treatment How to access health informa tion online Indication:BMI 28.0-28.9,adult Start:09-Jan-2018 Instruction Type:Patient Education How to access health informa tion online - Detail Indication:BMI 28.0-28.9,adult Start:09-Jan-2018 Instruction Type:Patient Education Patient Instructions Indication:BMI 28.0-28.9,adult Start:09-Jan-2018 Instruction Type:Provider Instructions for Treatment How to access health informa tion online Indication:Diabetes mellitus type 2, uncontrolled, without complications Start:02-Dec-2017 Instruction Type:Patient Education How to access health informa tion online - Detail Indication:Diabetes mellitus type 2, uncontrolled, without complications Start:02-Dec-2017 Instruction Type:Patient Education Patient Instructions Indication:Diabetes mellitus type 2, uncontrolled, without complications Start:02-Dec-2017 Instruction Type:Provider Instructions for Treatment How to access health informa tion online Indication:Nonsmoker Start:05-Nov-2017 Instruction Type:Patient Education How to access health informa tion online - Detail Indication:Nonsmoker Start:05-Nov-2017 Instruction Type:Patient Education Patient Instructions Indication:Nonsmoker Start:05-Nov-2017 Instruction Type:Provider Instructions for Treatment Patient Instructions Indication:Chest congestion Start:20-Sep-2017 Instruction Type:Provider Instructions for Treatment How to access health informa tion online Indication:Chest congestion Start:20-Sep-2017 Instruction Type:Patient Education How to access health informa tion online - Detail Indication:Chest congestion Start:20-Sep-2017 Instruction Type:Patient Education Patient Instructions Indication:Chest congestion Start:20-Sep-2017 Instruction Type:Provider Instructions for Treatment How to access health informa tion online Indication:Nonsmoker Start:07-Aug-2017 Instruction Type:Patient Education How to access health informa tion online - Detail Indication:Nonsmoker Start:07-Aug-2017 Instruction Type:Patient Education Patient Instructions Indication:Nonsmoker Start:07-Aug-2017 Instruction Type:Provider Instructions for Treatment How to access health informa tion online Indication:Diabetes mellitus type 2, uncontrolled, without complications Start:31-Jul-2017 Instruction Type:Patient Education How to access health informa tion online - Detail Indication:Diabetes mellitus type 2, uncontrolled, without complications Start:31-Jul-2017 Instruction Type:Patient Education Patient Instructions Indication:Diabetes mellitus type 2, uncontrolled, without complications Start:31-Jul-2017 Instruction Type:Provider Instructions for Treatment How to access health informa tion online Indication:Anxiety Start:22-Apr-2017 Instruction Type:Patient Education How to access health informa tion online - Detail Indication:Anxiety Start:22-Apr-2017 Instruction Type:Patient Education Patient Instructions Indication:Anxiety Start:22-Apr-2017 Instruction Type:Provider Instructions for Treatment How to access health informa tion online Indication:Diabetes mellitus type 2, uncontrolled, without complications Start:22-Apr-2017 Instruction Type:Patient Education How to access health informa tion online - Detail Indication:Diabetes mellitus type 2, uncontrolled, without complications Start:22-Apr-2017 Instruction Type:Patient Education Patient Instructions Indication:Diabetes mellitus type 2, uncontrolled, without complications Start:22-Apr-2017 Instruction Type:Provider Instructions for Treatment How to access health informa tion online Indication:Flu-like symptoms Start:17-Aug-2016 Instruction Type:Patient Education How to access health informa tion online - Detail Indication:Flu-like symptoms Start:17-Aug-2016 Instruction Type:Patient Education Patient Instructions Indication:Flu-like symptoms Start:17-Aug-2016 Instruction Type:Provider Instructions for Treatment How to access health informa tion online - Detail Indication:Diabetes mellitus type 2, uncontrolled, without complications Start:15-Sep-2015 Instruction Type:Patient Education How to access health informa tion online Indication:Diabetes mellitus type 2, uncontrolled, without complications Start:15-Sep-2015 Instruction Type:Patient Education Patient Instructions Indication:Diabetes mellitus type 2, uncontrolled, without complications Start:15-Sep-2015 Instruction Type:Provider Instructions for Treatment Patient Instructions Indication:Hypercholesteremia Start:03-Aug-2015 Instruction Type:Provider Instructions for Treatment How to access health informa tion online Indication:Diabetes mellitus type 2, uncontrolled, without complications Start:01-Jul-2015 Instruction Type:Patient Education How to access health informa tion online - Detail Indication:Diabetes mellitus type 2, uncontrolled, without complications Start:01-Jul-2015 Instruction Type:Patient Education Patient Instructions Indication:Diabetes mellitus type 2, uncontrolled, without complications Start:01-Jul-2015 Instruction Type:Provider Instructions for Treatment Patient Instructions Indication:Anxiety Start:16-Feb-2015 Instruction Type:Provider Instructions for Treatment How to access health informa tion online Indication:Anxiety Start:16-Feb-2015 Instruction Type:Patient Education How to access health informa tion online - Detail Indication:Anxiety Start:16-Feb-2015 Instruction Type:Patient Education Patient Instructions Indication:Anxiety Start:06-Aug-2012 Instruction Type:Provider Instructions for Treatment Patient Instructions Indication:Benign paroxysmal positional vertigo Start:30-Jun-2012 Instruction Type:Provider Instructions for Treatment [facility]; [facility] Work Phone: Instructions* Name Dates Details Patient Instructions Indication:BMI 30.0-30.9,adult Start:08-Jan-2022 Instruction Type:Provider Instructions for Treatment How to Access Health Informa tion Online using Patient Portal and [employer]rd [employer] Apps Indication:BMI 30.0-30.9,adult Start:08-Jan-2022 Instruction Type:Patient Education Patient Instructions Indication:Nonsmoker Start:12-May-2021 Instruction Type:Provider Instructions for Treatment How to Access Health Informa tion Online using Patient Portal and [employer]rd [employer] Apps Indication:Nonsmoker Start:12-May-2021 Instruction Type:Patient Education How to Access Health Informa tion Online using Patient Portal and [employer]rd [employer] Apps Indication:Nonsmoker Start:20-Mar-2021 Instruction Type:Patient Education Patient Instructions Indication:Nonsmoker Start:20-Mar-2021 Instruction Type:Provider Instructions for Treatment How to access health informa tion online Indication:Nonsmoker Start:24-Aug-2020 Instruction Type:Patient Education How to access health informa tion online - Detail Indication:Nonsmoker Start:24-Aug-2020 Instruction Type:Patient Education Patient Instructions Indication:Nonsmoker Start:24-Aug-2020 Instruction Type:Provider Instructions for Treatment How to access health informa tion online Indication:Nonsmoker Start:28-Apr-2020 Instruction Type:Patient Education How to access health informa tion online - Detail Indication:Nonsmoker Start:28-Apr-2020 Instruction Type:Patient Education Patient Instructions Indication:Nonsmoker Start:28-Apr-2020 Instruction Type:Provider Instructions for Treatment How to access health informa tion online Indication:Nonsmoker Start:12-Feb-2020 Instruction Type:Patient Education How to access health informa tion online - Detail Indication:Nonsmoker Start:12-Feb-2020 Instruction Type:Patient Education Patient Instructions Indication:Nonsmoker Start:12-Feb-2020 Instruction Type:Provider Instructions for Treatment How to access health informa tion online Indication:BMI 28.0-28.9,adult Start:21-Jan-2020 Instruction Type:Patient Education How to access health informa tion online - Detail Indication:BMI 28.0-28.9,adult Start:21-Jan-2020 Instruction Type:Patient Education Patient Instructions Indication:BMI 28.0-28.9,adult Start:21-Jan-2020 Instruction Type:Provider Instructions for Treatment How to access health informa tion online Indication:Diabetes mellitus type 2, uncontrolled, without complications Start:06-May-2019 Instruction Type:Patient Education How to access health informa tion online - Detail Indication:Diabetes mellitus type 2, uncontrolled, without complications Start:06-May-2019 Instruction Type:Patient Education Patient Instructions Indication:Diabetes mellitus type 2, uncontrolled, without complications Start:06-May-2019 Instruction Type:Provider Instructions for Treatment How to access health informa tion online Indication:Diabetes mellitus type 2, uncontrolled, without complications Start:28-Jan-2019 Instruction Type:Patient Education How to access health informa tion online - Detail Indication:Diabetes mellitus type 2, uncontrolled, without complications Start:28-Jan-2019 Instruction Type:Patient Education Patient Instructions Indication:Diabetes mellitus type 2, uncontrolled, without complications Start:28-Jan-2019 Instruction Type:Provider Instructions for Treatment How to access health informa tion online Indication:BMI 29.0-29.9,adult Start:20-Aug-2018 Instruction Type:Patient Education How to access health informa tion online - Detail Indication:BMI 29.0-29.9,adult Start:20-Aug-2018 Instruction Type:Patient Education Patient Instructions Indication:BMI 29.0-29.9,adult Start:20-Aug-2018 Instruction Type:Provider Instructions for Treatment How to access health informa tion online Indication:Diabetes mellitus type 2, uncontrolled, without complications Start:02-Jul-2018 Instruction Type:Patient Education How to access health informa tion online - Detail Indication:Diabetes mellitus type 2, uncontrolled, without complications Start:02-Jul-2018 Instruction Type:Patient Education Patient Instructions Indication:Diabetes mellitus type 2, uncontrolled, without complications Start:02-Jul-2018 Instruction Type:Provider Instructions for Treatment Patient Instructions Indication:Low back pain, episodic Start:30-Apr-2018 Instruction Type:Provider Instructions for Treatment How to access health informa tion online Indication:Rash Start:26-Mar-2018 Instruction Type:Patient Education How to access health informa tion online - Detail Indication:Rash Start:26-Mar-2018 Instruction Type:Patient Education Patient Instructions Indication:Rash Start:26-Mar-2018 Instruction Type:Provider Instructions for Treatment How to access health informa tion online Indication:Nonsmoker Start:21-Mar-2018 Instruction Type:Patient Education How to access health informa tion online - Detail Indication:Nonsmoker Start:21-Mar-2018 Instruction Type:Patient Education Patient Instructions Indication:Nonsmoker Start:21-Mar-2018 Instruction Type:Provider Instructions for Treatment How to access health informa tion online Indication:Nonsmoker Start:05-Mar-2018 Instruction Type:Patient Education How to access health informa tion online - Detail Indication:Nonsmoker Start:05-Mar-2018 Instruction Type:Patient Education Patient Instructions Indication:Nonsmoker Start:05-Mar-2018 Instruction Type:Provider Instructions for Treatment How to access health informa tion online Indication:BMI 28.0-28.9,adult Start:09-Jan-2018 Instruction Type:Patient Education How to access health informa tion online - Detail Indication:BMI 28.0-28.9,adult Start:09-Jan-2018 Instruction Type:Patient Education Patient Instructions Indication:BMI 28.0-28.9,adult Start:09-Jan-2018 Instruction Type:Provider Instructions for Treatment How to access health informa tion online Indication:Diabetes mellitus type 2, uncontrolled, without complications Start:02-Dec-2017 Instruction Type:Patient Education How to access health informa tion online - Detail Indication:Diabetes mellitus type 2, uncontrolled, without complications Start:02-Dec-2017 Instruction Type:Patient Education Patient Instructions Indication:Diabetes mellitus type 2, uncontrolled, without complications Start:02-Dec-2017 Instruction Type:Provider Instructions for Treatment How to access health informa tion online Indication:Nonsmoker Start:05-Nov-2017 Instruction Type:Patient Education How to access health informa tion online - Detail Indication:Nonsmoker Start:05-Nov-2017 Instruction Type:Patient Education Patient Instructions Indication:Nonsmoker Start:05-Nov-2017 Instruction Type:Provider Instructions for Treatment Patient Instructions Indication:Chest congestion Start:20-Sep-2017 Instruction Type:Provider Instructions for Treatment How to access health informa tion online Indication:Chest congestion Start:20-Sep-2017 Instruction Type:Patient Education How to access health informa tion online - Detail Indication:Chest congestion Start:20-Sep-2017 Instruction Type:Patient Education Patient Instructions Indication:Chest congestion Start:20-Sep-2017 Instruction Type:Provider Instructions for Treatment How to access health informa tion online Indication:Nonsmoker Start:07-Aug-2017 Instruction Type:Patient Education How to access health informa tion online - Detail Indication:Nonsmoker Start:07-Aug-2017 Instruction Type:Patient Education Patient Instructions Indication:Nonsmoker Start:07-Aug-2017 Instruction Type:Provider Instructions for Treatment How to access health informa tion online Indication:Diabetes mellitus type 2, uncontrolled, without complications Start:31-Jul-2017 Instruction Type:Patient Education How to access health informa tion online - Detail Indication:Diabetes mellitus type 2, uncontrolled, without complications Start:31-Jul-2017 Instruction Type:Patient Education Patient Instructions Indication:Diabetes mellitus type 2, uncontrolled, without complications Start:31-Jul-2017 Instruction Type:Provider Instructions for Treatment How to access health informa tion online Indication:Anxiety Start:22-Apr-2017 Instruction Type:Patient Education How to access health informa tion online - Detail Indication:Anxiety Start:22-Apr-2017 Instruction Type:Patient Education Patient Instructions Indication:Anxiety Start:22-Apr-2017 Instruction Type:Provider Instructions for Treatment How to access health informa tion online Indication:Diabetes mellitus type 2, uncontrolled, without complications Start:22-Apr-2017 Instruction Type:Patient Education How to access health informa tion online - Detail Indication:Diabetes mellitus type 2, uncontrolled, without complications Start:22-Apr-2017 Instruction Type:Patient Education Patient Instructions Indication:Diabetes mellitus type 2, uncontrolled, without complications Start:22-Apr-2017 Instruction Type:Provider Instructions for Treatment How to access health informa tion online Indication:Flu-like symptoms Start:17-Aug-2016 Instruction Type:Patient Education How to access health informa tion online - Detail Indication:Flu-like symptoms Start:17-Aug-2016 Instruction Type:Patient Education Patient Instructions Indication:Flu-like symptoms Start:17-Aug-2016 Instruction Type:Provider Instructions for Treatment How to access health informa tion online - Detail Indication:Diabetes mellitus type 2, uncontrolled, without complications Start:15-Sep-2015 Instruction Type:Patient Education How to access health informa tion online Indication:Diabetes mellitus type 2, uncontrolled, without complications Start:15-Sep-2015 Instruction Type:Patient Education Patient Instructions Indication:Diabetes mellitus type 2, uncontrolled, without complications Start:15-Sep-2015 Instruction Type:Provider Instructions for Treatment Patient Instructions Indication:Hypercholesteremia Start:03-Aug-2015 Instruction Type:Provider Instructions for Treatment How to access health informa tion online Indication:Diabetes mellitus type 2, uncontrolled, without complications Start:01-Jul-2015 Instruction Type:Patient Education How to access health informa tion online - Detail Indication:Diabetes mellitus type 2, uncontrolled, without complications Start:01-Jul-2015 Instruction Type:Patient Education Patient Instructions Indication:Diabetes mellitus type 2, uncontrolled, without complications Start:01-Jul-2015 Instruction Type:Provider Instructions for Treatment Patient Instructions Indication:Anxiety Start:16-Feb-2015 Instruction Type:Provider Instructions for Treatment How to access health informa tion online Indication:Anxiety Start:16-Feb-2015 Instruction Type:Patient Education How to access health informa tion online - Detail Indication:Anxiety Start:16-Feb-2015 Instruction Type:Patient Education Patient Instructions Indication:Anxiety Start:06-Aug-2012 Instruction Type:Provider Instructions for Treatment Patient Instructions Indication:Benign paroxysmal positional vertigo Start:30-Jun-2012 Instruction Type:Provider Instructions for Treatment [facility]; [facility] Work Phone: Instructions* Name Dates Details Patient Instructions Indication:BMI 30.0-30.9,adult Start:25-Jul-2022 Instruction Type:Provider Instructions for Treatment How to Access Health Informa tion Online using Patient Portal and [employer]rd [employer] Apps Indication:BMI 30.0-30.9,adult Start:25-Jul-2022 Instruction Type:Patient Education Patient Instructions Indication:BMI 30.0-30.9,adult Start:08-Jan-2022 Instruction Type:Provider Instructions for Treatment How to Access Health Informa tion Online using Patient Portal and [employer]rd [employer] Apps Indication:BMI 30.0-30.9,adult Start:08-Jan-2022 Instruction Type:Patient Education Patient Instructions Indication:Nonsmoker Start:12-May-2021 Instruction Type:Provider Instructions for Treatment How to Access Health Informa tion Online using Patient Portal and [employer]rd [employer] Apps Indication:Nonsmoker Start:12-May-2021 Instruction Type:Patient Education How to Access Health Informa tion Online using Patient Portal and [employer]rd [employer] Apps Indication:Nonsmoker Start:20-Mar-2021 Instruction Type:Patient Education Patient Instructions Indication:Nonsmoker Start:20-Mar-2021 Instruction Type:Provider Instructions for Treatment How to access health informa tion online Indication:Nonsmoker Start:24-Aug-2020 Instruction Type:Patient Education How to access health informa tion online - Detail Indication:Nonsmoker Start:24-Aug-2020 Instruction Type:Patient Education Patient Instructions Indication:Nonsmoker Start:24-Aug-2020 Instruction Type:Provider Instructions for Treatment How to access health informa tion online Indication:Nonsmoker Start:28-Apr-2020 Instruction Type:Patient Education How to access health informa tion online - Detail Indication:Nonsmoker Start:28-Apr-2020 Instruction Type:Patient Education Patient Instructions Indication:Nonsmoker Start:28-Apr-2020 Instruction Type:Provider Instructions for Treatment How to access health informa tion online Indication:Nonsmoker Start:12-Feb-2020 Instruction Type:Patient Education How to access health informa tion online - Detail Indication:Nonsmoker Start:12-Feb-2020 Instruction Type:Patient Education Patient Instructions Indication:Nonsmoker Start:12-Feb-2020 Instruction Type:Provider Instructions for Treatment How to access health informa tion online Indication:BMI 28.0-28.9,adult Start:21-Jan-2020 Instruction Type:Patient Education How to access health informa tion online - Detail Indication:BMI 28.0-28.9,adult Start:21-Jan-2020 Instruction Type:Patient Education Patient Instructions Indication:BMI 28.0-28.9,adult Start:21-Jan-2020 Instruction Type:Provider Instructions for Treatment How to access health informa tion online Indication:Diabetes mellitus type 2, uncontrolled, without complications Start:06-May-2019 Instruction Type:Patient Education How to access health informa tion online - Detail Indication:Diabetes mellitus type 2, uncontrolled, without complications Start:06-May-2019 Instruction Type:Patient Education Patient Instructions Indication:Diabetes mellitus type 2, uncontrolled, without complications Start:06-May-2019 Instruction Type:Provider Instructions for Treatment How to access health informa tion online Indication:Diabetes mellitus type 2, uncontrolled, without complications Start:28-Jan-2019 Instruction Type:Patient Education How to access health informa tion online - Detail Indication:Diabetes mellitus type 2, uncontrolled, without complications Start:28-Jan-2019 Instruction Type:Patient Education Patient Instructions Indication:Diabetes mellitus type 2, uncontrolled, without complications Start:28-Jan-2019 Instruction Type:Provider Instructions for Treatment How to access health informa tion online Indication:BMI 29.0-29.9,adult Start:20-Aug-2018 Instruction Type:Patient Education How to access health informa tion online - Detail Indication:BMI 29.0-29.9,adult Start:20-Aug-2018 Instruction Type:Patient Education Patient Instructions Indication:BMI 29.0-29.9,adult Start:20-Aug-2018 Instruction Type:Provider Instructions for Treatment How to access health informa tion online Indication:Diabetes mellitus type 2, uncontrolled, without complications Start:02-Jul-2018 Instruction Type:Patient Education How to access health informa tion online - Detail Indication:Diabetes mellitus type 2, uncontrolled, without complications Start:02-Jul-2018 Instruction Type:Patient Education Patient Instructions Indication:Diabetes mellitus type 2, uncontrolled, without complications Start:02-Jul-2018 Instruction Type:Provider Instructions for Treatment Patient Instructions Indication:Low back pain, episodic Start:30-Apr-2018 Instruction Type:Provider Instructions for Treatment How to access health informa tion online Indication:Rash Start:26-Mar-2018 Instruction Type:Patient Education How to access health informa tion online - Detail Indication:Rash Start:26-Mar-2018 Instruction Type:Patient Education Patient Instructions Indication:Rash Start:26-Mar-2018 Instruction Type:Provider Instructions for Treatment How to access health informa tion online Indication:Nonsmoker Start:21-Mar-2018 Instruction Type:Patient Education How to access health informa tion online - Detail Indication:Nonsmoker Start:21-Mar-2018 Instruction Type:Patient Education Patient Instructions Indication:Nonsmoker Start:21-Mar-2018 Instruction Type:Provider Instructions for Treatment How to access health informa tion online Indication:Nonsmoker Start:05-Mar-2018 Instruction Type:Patient Education How to access health informa tion online - Detail Indication:Nonsmoker Start:05-Mar-2018 Instruction Type:Patient Education Patient Instructions Indication:Nonsmoker Start:05-Mar-2018 Instruction Type:Provider Instructions for Treatment How to access health informa tion online Indication:BMI 28.0-28.9,adult Start:09-Jan-2018 Instruction Type:Patient Education How to access health informa tion online - Detail Indication:BMI 28.0-28.9,adult Start:09-Jan-2018 Instruction Type:Patient Education Patient Instructions Indication:BMI 28.0-28.9,adult Start:09-Jan-2018 Instruction Type:Provider Instructions for Treatment How to access health informa tion online Indication:Diabetes mellitus type 2, uncontrolled, without complications Start:02-Dec-2017 Instruction Type:Patient Education How to access health informa tion online - Detail Indication:Diabetes mellitus type 2, uncontrolled, without complications Start:02-Dec-2017 Instruction Type:Patient Education Patient Instructions Indication:Diabetes mellitus type 2, uncontrolled, without complications Start:02-Dec-2017 Instruction Type:Provider Instructions for Treatment How to access health informa tion online Indication:Nonsmoker Start:05-Nov-2017 Instruction Type:Patient Education How to access health informa tion online - Detail Indication:Nonsmoker Start:05-Nov-2017 Instruction Type:Patient Education Patient Instructions Indication:Nonsmoker Start:05-Nov-2017 Instruction Type:Provider Instructions for Treatment Patient Instructions Indication:Chest congestion Start:20-Sep-2017 Instruction Type:Provider Instructions for Treatment How to access health informa tion online Indication:Chest congestion Start:20-Sep-2017 Instruction Type:Patient Education How to access health informa tion online - Detail Indication:Chest congestion Start:20-Sep-2017 Instruction Type:Patient Education Patient Instructions Indication:Chest congestion Start:20-Sep-2017 Instruction Type:Provider Instructions for Treatment How to access health informa tion online Indication:Nonsmoker Start:07-Aug-2017 Instruction Type:Patient Education How to access health informa tion online - Detail Indication:Nonsmoker Start:07-Aug-2017 Instruction Type:Patient Education Patient Instructions Indication:Nonsmoker Start:07-Aug-2017 Instruction Type:Provider Instructions for Treatment How to access health informa tion online Indication:Diabetes mellitus type 2, uncontrolled, without complications Start:31-Jul-2017 Instruction Type:Patient Education How to access health informa tion online - Detail Indication:Diabetes mellitus type 2, uncontrolled, without complications Start:31-Jul-2017 Instruction Type:Patient Education Patient Instructions Indication:Diabetes mellitus type 2, uncontrolled, without complications Start:31-Jul-2017 Instruction Type:Provider Instructions for Treatment How to access health informa tion online Indication:Anxiety Start:22-Apr-2017 Instruction Type:Patient Education How to access health informa tion online - Detail Indication:Anxiety Start:22-Apr-2017 Instruction Type:Patient Education Patient Instructions Indication:Anxiety Start:22-Apr-2017 Instruction Type:Provider Instructions for Treatment How to access health informa tion online Indication:Diabetes mellitus type 2, uncontrolled, without complications Start:22-Apr-2017 Instruction Type:Patient Education How to access health informa tion online - Detail Indication:Diabetes mellitus type 2, uncontrolled, without complications Start:22-Apr-2017 Instruction Type:Patient Education Patient Instructions Indication:Diabetes mellitus type 2, uncontrolled, without complications Start:22-Apr-2017 Instruction Type:Provider Instructions for Treatment How to access health informa tion online Indication:Flu-like symptoms Start:17-Aug-2016 Instruction Type:Patient Education How to access health informa tion online - Detail Indication:Flu-like symptoms Start:17-Aug-2016 Instruction Type:Patient Education Patient Instructions Indication:Flu-like symptoms Start:17-Aug-2016 Instruction Type:Provider Instructions for Treatment How to access health informa tion online - Detail Indication:Diabetes mellitus type 2, uncontrolled, without complications Start:15-Sep-2015 Instruction Type:Patient Education How to access health informa tion online Indication:Diabetes mellitus type 2, uncontrolled, without complications Start:15-Sep-2015 Instruction Type:Patient Education Patient Instructions Indication:Diabetes mellitus type 2, uncontrolled, without complications Start:15-Sep-2015 Instruction Type:Provider Instructions for Treatment Patient Instructions Indication:Hypercholesteremia Start:03-Aug-2015 Instruction Type:Provider Instructions for Treatment How to access health informa tion online Indication:Diabetes mellitus type 2, uncontrolled, without complications Start:01-Jul-2015 Instruction Type:Patient Education How to access health informa tion online - Detail Indication:Diabetes mellitus type 2, uncontrolled, without complications Start:01-Jul-2015 Instruction Type:Patient Education Patient Instructions Indication:Diabetes mellitus type 2, uncontrolled, without complications Start:01-Jul-2015 Instruction Type:Provider Instructions for Treatment Patient Instructions Indication:Anxiety Start:16-Feb-2015 Instruction Type:Provider Instructions for Treatment How to access health informa tion online Indication:Anxiety Start:16-Feb-2015 Instruction Type:Patient Education How to access health informa tion online - Detail Indication:Anxiety Start:16-Feb-2015 Instruction Type:Patient Education Patient Instructions Indication:Anxiety Start:06-Aug-2012 Instruction Type:Provider Instructions for Treatment Patient Instructions Indication:Benign paroxysmal positional vertigo Start:30-Jun-2012 Instruction Type:Provider Instructions for Treatment [facility]; [facility] Work Phone: Instructions* Name Dates Details Patient Instructions Indication:BMI 30.0-30.9,adult Start:25-Jul-2022 Instruction Type:Provider Instructions for Treatment How to Access Health Informa tion Online using Patient Portal and [employer]rd [employer] Apps Indication:BMI 30.0-30.9,adult Start:25-Jul-2022 Instruction Type:Patient Education Patient Instructions Indication:BMI 30.0-30.9,adult Start:08-Jan-2022 Instruction Type:Provider Instructions for Treatment How to Access Health Informa tion Online using Patient Portal and [employer]rd [employer] Apps Indication:BMI 30.0-30.9,adult Start:08-Jan-2022 Instruction Type:Patient Education Patient Instructions Indication:Nonsmoker Start:12-May-2021 Instruction Type:Provider Instructions for Treatment How to Access Health Informa tion Online using Patient Portal and [employer]rd [employer] Apps Indication:Nonsmoker Start:12-May-2021 Instruction Type:Patient Education How to Access Health Informa tion Online using Patient Portal and [employer]rd [employer] Apps Indication:Nonsmoker Start:20-Mar-2021 Instruction Type:Patient Education Patient Instructions Indication:Nonsmoker Start:20-Mar-2021 Instruction Type:Provider Instructions for Treatment How to access health informa tion online Indication:Nonsmoker Start:24-Aug-2020 Instruction Type:Patient Education How to access health informa tion online - Detail Indication:Nonsmoker Start:24-Aug-2020 Instruction Type:Patient Education Patient Instructions Indication:Nonsmoker Start:24-Aug-2020 Instruction Type:Provider Instructions for Treatment How to access health informa tion online Indication:Nonsmoker Start:28-Apr-2020 Instruction Type:Patient Education How to access health informa tion online - Detail Indication:Nonsmoker Start:28-Apr-2020 Instruction Type:Patient Education Patient Instructions Indication:Nonsmoker Start:28-Apr-2020 Instruction Type:Provider Instructions for Treatment How to access health informa tion online Indication:Nonsmoker Start:12-Feb-2020 Instruction Type:Patient Education How to access health informa tion online - Detail Indication:Nonsmoker Start:12-Feb-2020 Instruction Type:Patient Education Patient Instructions Indication:Nonsmoker Start:12-Feb-2020 Instruction Type:Provider Instructions for Treatment How to access health informa tion online Indication:BMI 28.0-28.9,adult Start:21-Jan-2020 Instruction Type:Patient Education How to access health informa tion online - Detail Indication:BMI 28.0-28.9,adult Start:21-Jan-2020 Instruction Type:Patient Education Patient Instructions Indication:BMI 28.0-28.9,adult Start:21-Jan-2020 Instruction Type:Provider Instructions for Treatment How to access health informa tion online Indication:Diabetes mellitus type 2, uncontrolled, without complications Start:06-May-2019 Instruction Type:Patient Education How to access health informa tion online - Detail Indication:Diabetes mellitus type 2, uncontrolled, without complications Start:06-May-2019 Instruction Type:Patient Education Patient Instructions Indication:Diabetes mellitus type 2, uncontrolled, without complications Start:06-May-2019 Instruction Type:Provider Instructions for Treatment How to access health informa tion online Indication:Diabetes mellitus type 2, uncontrolled, without complications Start:28-Jan-2019 Instruction Type:Patient Education How to access health informa tion online - Detail Indication:Diabetes mellitus type 2, uncontrolled, without complications Start:28-Jan-2019 Instruction Type:Patient Education Patient Instructions Indication:Diabetes mellitus type 2, uncontrolled, without complications Start:28-Jan-2019 Instruction Type:Provider Instructions for Treatment How to access health informa tion online Indication:BMI 29.0-29.9,adult Start:20-Aug-2018 Instruction Type:Patient Education How to access health informa tion online - Detail Indication:BMI 29.0-29.9,adult Start:20-Aug-2018 Instruction Type:Patient Education Patient Instructions Indication:BMI 29.0-29.9,adult Start:20-Aug-2018 Instruction Type:Provider Instructions for Treatment How to access health informa tion online Indication:Diabetes mellitus type 2, uncontrolled, without complications Start:02-Jul-2018 Instruction Type:Patient Education How to access health informa tion online - Detail Indication:Diabetes mellitus type 2, uncontrolled, without complications Start:02-Jul-2018 Instruction Type:Patient Education Patient Instructions Indication:Diabetes mellitus type 2, uncontrolled, without complications Start:02-Jul-2018 Instruction Type:Provider Instructions for Treatment Patient Instructions Indication:Low back pain, episodic Start:30-Apr-2018 Instruction Type:Provider Instructions for Treatment How to access health informa tion online Indication:Rash Start:26-Mar-2018 Instruction Type:Patient Education How to access health informa tion online - Detail Indication:Rash Start:26-Mar-2018 Instruction Type:Patient Education Patient Instructions Indication:Rash Start:26-Mar-2018 Instruction Type:Provider Instructions for Treatment How to access health informa tion online Indication:Nonsmoker Start:21-Mar-2018 Instruction Type:Patient Education How to access health informa tion online - Detail Indication:Nonsmoker Start:21-Mar-2018 Instruction Type:Patient Education Patient Instructions Indication:Nonsmoker Start:21-Mar-2018 Instruction Type:Provider Instructions for Treatment How to access health informa tion online Indication:Nonsmoker Start:05-Mar-2018 Instruction Type:Patient Education How to access health informa tion online - Detail Indication:Nonsmoker Start:05-Mar-2018 Instruction Type:Patient Education Patient Instructions Indication:Nonsmoker Start:05-Mar-2018 Instruction Type:Provider Instructions for Treatment How to access health informa tion online Indication:BMI 28.0-28.9,adult Start:09-Jan-2018 Instruction Type:Patient Education How to access health informa tion online - Detail Indication:BMI 28.0-28.9,adult Start:09-Jan-2018 Instruction Type:Patient Education Patient Instructions Indication:BMI 28.0-28.9,adult Start:09-Jan-2018 Instruction Type:Provider Instructions for Treatment How to access health informa tion online Indication:Diabetes mellitus type 2, uncontrolled, without complications Start:02-Dec-2017 Instruction Type:Patient Education How to access health informa tion online - Detail Indication:Diabetes mellitus type 2, uncontrolled, without complications Start:02-Dec-2017 Instruction Type:Patient Education Patient Instructions Indication:Diabetes mellitus type 2, uncontrolled, without complications Start:02-Dec-2017 Instruction Type:Provider Instructions for Treatment How to access health informa tion online Indication:Nonsmoker Start:05-Nov-2017 Instruction Type:Patient Education How to access health informa tion online - Detail Indication:Nonsmoker Start:05-Nov-2017 Instruction Type:Patient Education Patient Instructions Indication:Nonsmoker Start:05-Nov-2017 Instruction Type:Provider Instructions for Treatment Patient Instructions Indication:Chest congestion Start:20-Sep-2017 Instruction Type:Provider Instructions for Treatment How to access health informa tion online Indication:Chest congestion Start:20-Sep-2017 Instruction Type:Patient Education How to access health informa tion online - Detail Indication:Chest congestion Start:20-Sep-2017 Instruction Type:Patient Education Patient Instructions Indication:Chest congestion Start:20-Sep-2017 Instruction Type:Provider Instructions for Treatment How to access health informa tion online Indication:Nonsmoker Start:07-Aug-2017 Instruction Type:Patient Education How to access health informa tion online - Detail Indication:Nonsmoker Start:07-Aug-2017 Instruction Type:Patient Education Patient Instructions Indication:Nonsmoker Start:07-Aug-2017 Instruction Type:Provider Instructions for Treatment How to access health informa tion online Indication:Diabetes mellitus type 2, uncontrolled, without complications Start:31-Jul-2017 Instruction Type:Patient Education How to access health informa tion online - Detail Indication:Diabetes mellitus type 2, uncontrolled, without complications Start:31-Jul-2017 Instruction Type:Patient Education Patient Instructions Indication:Diabetes mellitus type 2, uncontrolled, without complications Start:31-Jul-2017 Instruction Type:Provider Instructions for Treatment How to access health informa tion online Indication:Anxiety Start:22-Apr-2017 Instruction Type:Patient Education How to access health informa tion online - Detail Indication:Anxiety Start:22-Apr-2017 Instruction Type:Patient Education Patient Instructions Indication:Anxiety Start:22-Apr-2017 Instruction Type:Provider Instructions for Treatment How to access health informa tion online Indication:Diabetes mellitus type 2, uncontrolled, without complications Start:22-Apr-2017 Instruction Type:Patient Education How to access health informa tion online - Detail Indication:Diabetes mellitus type 2, uncontrolled, without complications Start:22-Apr-2017 Instruction Type:Patient Education Patient Instructions Indication:Diabetes mellitus type 2, uncontrolled, without complications Start:22-Apr-2017 Instruction Type:Provider Instructions for Treatment How to access health informa tion online Indication:Flu-like symptoms Start:17-Aug-2016 Instruction Type:Patient Education How to access health informa tion online - Detail Indication:Flu-like symptoms Start:17-Aug-2016 Instruction Type:Patient Education Patient Instructions Indication:Flu-like symptoms Start:17-Aug-2016 Instruction Type:Provider Instructions for Treatment How to access health informa tion online - Detail Indication:Diabetes mellitus type 2, uncontrolled, without complications Start:15-Sep-2015 Instruction Type:Patient Education How to access health informa tion online Indication:Diabetes mellitus type 2, uncontrolled, without complications Start:15-Sep-2015 Instruction Type:Patient Education Patient Instructions Indication:Diabetes mellitus type 2, uncontrolled, without complications Start:15-Sep-2015 Instruction Type:Provider Instructions for Treatment Patient Instructions Indication:Hypercholesteremia Start:03-Aug-2015 Instruction Type:Provider Instructions for Treatment How to access health informa tion online Indication:Diabetes mellitus type 2, uncontrolled, without complications Start:01-Jul-2015 Instruction Type:Patient Education How to access health informa tion online - Detail Indication:Diabetes mellitus type 2, uncontrolled, without complications Start:01-Jul-2015 Instruction Type:Patient Education Patient Instructions Indication:Diabetes mellitus type 2, uncontrolled, without complications Start:01-Jul-2015 Instruction Type:Provider Instructions for Treatment Patient Instructions Indication:Anxiety Start:16-Feb-2015 Instruction Type:Provider Instructions for Treatment How to access health informa tion online Indication:Anxiety Start:16-Feb-2015 Instruction Type:Patient Education How to access health informa tion online - Detail Indication:Anxiety Start:16-Feb-2015 Instruction Type:Patient Education Patient Instructions Indication:Anxiety Start:06-Aug-2012 Instruction Type:Provider Instructions for Treatment Patient Instructions Indication:Benign paroxysmal positional vertigo Start:30-Jun-2012 Instruction Type:Provider Instructions for Treatment [facility]; [facility] Work Phone: Instructions* Name Dates Details Patient Instructions Indication:BMI 30.0-30.9,adult Start:25-Jul-2022 Instruction Type:Provider Instructions for Treatment How to Access Health Informa tion Online using Patient Portal and [employer]rd [employer] Apps Indication:BMI 30.0-30.9,adult Start:25-Jul-2022 Instruction Type:Patient Education Patient Instructions Indication:BMI 30.0-30.9,adult Start:08-Jan-2022 Instruction Type:Provider Instructions for Treatment How to Access Health Informa tion Online using Patient Portal and [employer]rd [employer] Apps Indication:BMI 30.0-30.9,adult Start:08-Jan-2022 Instruction Type:Patient Education Patient Instructions Indication:Nonsmoker Start:12-May-2021 Instruction Type:Provider Instructions for Treatment How to Access Health Informa tion Online using Patient Portal and [employer]rd [employer] Apps Indication:Nonsmoker Start:12-May-2021 Instruction Type:Patient Education How to Access Health Informa tion Online using Patient Portal and [employer]rd [employer] Apps Indication:Nonsmoker Start:20-Mar-2021 Instruction Type:Patient Education Patient Instructions Indication:Nonsmoker Start:20-Mar-2021 Instruction Type:Provider Instructions for Treatment How to access health informa tion online Indication:Nonsmoker Start:24-Aug-2020 Instruction Type:Patient Education How to access health informa tion online - Detail Indication:Nonsmoker Start:24-Aug-2020 Instruction Type:Patient Education Patient Instructions Indication:Nonsmoker Start:24-Aug-2020 Instruction Type:Provider Instructions for Treatment How to access health informa tion online Indication:Nonsmoker Start:28-Apr-2020 Instruction Type:Patient Education How to access health informa tion online - Detail Indication:Nonsmoker Start:28-Apr-2020 Instruction Type:Patient Education Patient Instructions Indication:Nonsmoker Start:28-Apr-2020 Instruction Type:Provider Instructions for Treatment How to access health informa tion online Indication:Nonsmoker Start:12-Feb-2020 Instruction Type:Patient Education How to access health informa tion online - Detail Indication:Nonsmoker Start:12-Feb-2020 Instruction Type:Patient Education Patient Instructions Indication:Nonsmoker Start:12-Feb-2020 Instruction Type:Provider Instructions for Treatment How to access health informa tion online Indication:BMI 28.0-28.9,adult Start:21-Jan-2020 Instruction Type:Patient Education How to access health informa tion online - Detail Indication:BMI 28.0-28.9,adult Start:21-Jan-2020 Instruction Type:Patient Education Patient Instructions Indication:BMI 28.0-28.9,adult Start:21-Jan-2020 Instruction Type:Provider Instructions for Treatment How to access health informa tion online Indication:Diabetes mellitus type 2, uncontrolled, without complications Start:06-May-2019 Instruction Type:Patient Education How to access health informa tion online - Detail Indication:Diabetes mellitus type 2, uncontrolled, without complications Start:06-May-2019 Instruction Type:Patient Education Patient Instructions Indication:Diabetes mellitus type 2, uncontrolled, without complications Start:06-May-2019 Instruction Type:Provider Instructions for Treatment How to access health informa tion online Indication:Diabetes mellitus type 2, uncontrolled, without complications Start:28-Jan-2019 Instruction Type:Patient Education How to access health informa tion online - Detail Indication:Diabetes mellitus type 2, uncontrolled, without complications Start:28-Jan-2019 Instruction Type:Patient Education Patient Instructions Indication:Diabetes mellitus type 2, uncontrolled, without complications Start:28-Jan-2019 Instruction Type:Provider Instructions for Treatment How to access health informa tion online Indication:BMI 29.0-29.9,adult Start:20-Aug-2018 Instruction Type:Patient Education How to access health informa tion online - Detail Indication:BMI 29.0-29.9,adult Start:20-Aug-2018 Instruction Type:Patient Education Patient Instructions Indication:BMI 29.0-29.9,adult Start:20-Aug-2018 Instruction Type:Provider Instructions for Treatment How to access health informa tion online Indication:Diabetes mellitus type 2, uncontrolled, without complications Start:02-Jul-2018 Instruction Type:Patient Education How to access health informa tion online - Detail Indication:Diabetes mellitus type 2, uncontrolled, without complications Start:02-Jul-2018 Instruction Type:Patient Education Patient Instructions Indication:Diabetes mellitus type 2, uncontrolled, without complications Start:02-Jul-2018 Instruction Type:Provider Instructions for Treatment Patient Instructions Indication:Low back pain, episodic Start:30-Apr-2018 Instruction Type:Provider Instructions for Treatment How to access health informa tion online Indication:Rash Start:26-Mar-2018 Instruction Type:Patient Education How to access health informa tion online - Detail Indication:Rash Start:26-Mar-2018 Instruction Type:Patient Education Patient Instructions Indication:Rash Start:26-Mar-2018 Instruction Type:Provider Instructions for Treatment How to access health informa tion online Indication:Nonsmoker Start:21-Mar-2018 Instruction Type:Patient Education How to access health informa tion online - Detail Indication:Nonsmoker Start:21-Mar-2018 Instruction Type:Patient Education Patient Instructions Indication:Nonsmoker Start:21-Mar-2018 Instruction Type:Provider Instructions for Treatment How to access health informa tion online Indication:Nonsmoker Start:05-Mar-2018 Instruction Type:Patient Education How to access health informa tion online - Detail Indication:Nonsmoker Start:05-Mar-2018 Instruction Type:Patient Education Patient Instructions Indication:Nonsmoker Start:05-Mar-2018 Instruction Type:Provider Instructions for Treatment How to access health informa tion online Indication:BMI 28.0-28.9,adult Start:09-Jan-2018 Instruction Type:Patient Education How to access health informa tion online - Detail Indication:BMI 28.0-28.9,adult Start:09-Jan-2018 Instruction Type:Patient Education Patient Instructions Indication:BMI 28.0-28.9,adult Start:09-Jan-2018 Instruction Type:Provider Instructions for Treatment How to access health informa tion online Indication:Diabetes mellitus type 2, uncontrolled, without complications Start:02-Dec-2017 Instruction Type:Patient Education How to access health informa tion online - Detail Indication:Diabetes mellitus type 2, uncontrolled, without complications Start:02-Dec-2017 Instruction Type:Patient Education Patient Instructions Indication:Diabetes mellitus type 2, uncontrolled, without complications Start:02-Dec-2017 Instruction Type:Provider Instructions for Treatment How to access health informa tion online Indication:Nonsmoker Start:05-Nov-2017 Instruction Type:Patient Education How to access health informa tion online - Detail Indication:Nonsmoker Start:05-Nov-2017 Instruction Type:Patient Education Patient Instructions Indication:Nonsmoker Start:05-Nov-2017 Instruction Type:Provider Instructions for Treatment Patient Instructions Indication:Chest congestion Start:20-Sep-2017 Instruction Type:Provider Instructions for Treatment How to access health informa tion online Indication:Chest congestion Start:20-Sep-2017 Instruction Type:Patient Education How to access health informa tion online - Detail Indication:Chest congestion Start:20-Sep-2017 Instruction Type:Patient Education Patient Instructions Indication:Chest congestion Start:20-Sep-2017 Instruction Type:Provider Instructions for Treatment How to access health informa tion online Indication:Nonsmoker Start:07-Aug-2017 Instruction Type:Patient Education How to access health informa tion online - Detail Indication:Nonsmoker Start:07-Aug-2017 Instruction Type:Patient Education Patient Instructions Indication:Nonsmoker Start:07-Aug-2017 Instruction Type:Provider Instructions for Treatment How to access health informa tion online Indication:Diabetes mellitus type 2, uncontrolled, without complications Start:31-Jul-2017 Instruction Type:Patient Education How to access health informa tion online - Detail Indication:Diabetes mellitus type 2, uncontrolled, without complications Start:31-Jul-2017 Instruction Type:Patient Education Patient Instructions Indication:Diabetes mellitus type 2, uncontrolled, without complications Start:31-Jul-2017 Instruction Type:Provider Instructions for Treatment How to access health informa tion online Indication:Anxiety Start:22-Apr-2017 Instruction Type:Patient Education How to access health informa tion online - Detail Indication:Anxiety Start:22-Apr-2017 Instruction Type:Patient Education Patient Instructions Indication:Anxiety Start:22-Apr-2017 Instruction Type:Provider Instructions for Treatment How to access health informa tion online Indication:Diabetes mellitus type 2, uncontrolled, without complications Start:22-Apr-2017 Instruction Type:Patient Education How to access health informa tion online - Detail Indication:Diabetes mellitus type 2, uncontrolled, without complications Start:22-Apr-2017 Instruction Type:Patient Education Patient Instructions Indication:Diabetes mellitus type 2, uncontrolled, without complications Start:22-Apr-2017 Instruction Type:Provider Instructions for Treatment How to access health informa tion online Indication:Flu-like symptoms Start:17-Aug-2016 Instruction Type:Patient Education How to access health informa tion online - Detail Indication:Flu-like symptoms Start:17-Aug-2016 Instruction Type:Patient Education Patient Instructions Indication:Flu-like symptoms Start:17-Aug-2016 Instruction Type:Provider Instructions for Treatment How to access health informa tion online - Detail Indication:Diabetes mellitus type 2, uncontrolled, without complications Start:15-Sep-2015 Instruction Type:Patient Education How to access health informa tion online Indication:Diabetes mellitus type 2, uncontrolled, without complications Start:15-Sep-2015 Instruction Type:Patient Education Patient Instructions Indication:Diabetes mellitus type 2, uncontrolled, without complications Start:15-Sep-2015 Instruction Type:Provider Instructions for Treatment Patient Instructions Indication:Hypercholesteremia Start:03-Aug-2015 Instruction Type:Provider Instructions for Treatment How to access health informa tion online Indication:Diabetes mellitus type 2, uncontrolled, without complications Start:01-Jul-2015 Instruction Type:Patient Education How to access health informa tion online - Detail Indication:Diabetes mellitus type 2, uncontrolled, without complications Start:01-Jul-2015 Instruction Type:Patient Education Patient Instructions Indication:Diabetes mellitus type 2, uncontrolled, without complications Start:01-Jul-2015 Instruction Type:Provider Instructions for Treatment Patient Instructions Indication:Anxiety Start:16-Feb-2015 Instruction Type:Provider Instructions for Treatment How to access health informa tion online Indication:Anxiety Start:16-Feb-2015 Instruction Type:Patient Education How to access health informa tion online - Detail Indication:Anxiety Start:16-Feb-2015 Instruction Type:Patient Education Patient Instructions Indication:Anxiety Start:06-Aug-2012 Instruction Type:Provider Instructions for Treatment Patient Instructions Indication:Benign paroxysmal positional vertigo Start:30-Jun-2012 Instruction Type:Provider Instructions for Treatment [facility]; [facility] Work Phone: Instructions* Name Dates Details Patient Instructions Indication:BMI 30.0-30.9,adult Start:25-Jul-2022 Instruction Type:Provider Instructions for Treatment How to Access Health Informa tion Online using Patient Portal and [employer]rd [employer] Apps Indication:BMI 30.0-30.9,adult Start:25-Jul-2022 Instruction Type:Patient Education Patient Instructions Indication:BMI 30.0-30.9,adult Start:08-Jan-2022 Instruction Type:Provider Instructions for Treatment How to Access Health Informa tion Online using Patient Portal and [employer]rd [employer] Apps Indication:BMI 30.0-30.9,adult Start:08-Jan-2022 Instruction Type:Patient Education Patient Instructions Indication:Nonsmoker Start:12-May-2021 Instruction Type:Provider Instructions for Treatment How to Access Health Informa tion Online using Patient Portal and [employer]rd [employer] Apps Indication:Nonsmoker Start:12-May-2021 Instruction Type:Patient Education How to Access Health Informa tion Online using Patient Portal and [employer]rd [employer] Apps Indication:Nonsmoker Start:20-Mar-2021 Instruction Type:Patient Education Patient Instructions Indication:Nonsmoker Start:20-Mar-2021 Instruction Type:Provider Instructions for Treatment How to access health informa tion online Indication:Nonsmoker Start:24-Aug-2020 Instruction Type:Patient Education How to access health informa tion online - Detail Indication:Nonsmoker Start:24-Aug-2020 Instruction Type:Patient Education Patient Instructions Indication:Nonsmoker Start:24-Aug-2020 Instruction Type:Provider Instructions for Treatment How to access health informa tion online Indication:Nonsmoker Start:28-Apr-2020 Instruction Type:Patient Education How to access health informa tion online - Detail Indication:Nonsmoker Start:28-Apr-2020 Instruction Type:Patient Education Patient Instructions Indication:Nonsmoker Start:28-Apr-2020 Instruction Type:Provider Instructions for Treatment How to access health informa tion online Indication:Nonsmoker Start:12-Feb-2020 Instruction Type:Patient Education How to access health informa tion online - Detail Indication:Nonsmoker Start:12-Feb-2020 Instruction Type:Patient Education Patient Instructions Indication:Nonsmoker Start:12-Feb-2020 Instruction Type:Provider Instructions for Treatment How to access health informa tion online Indication:BMI 28.0-28.9,adult Start:21-Jan-2020 Instruction Type:Patient Education How to access health informa tion online - Detail Indication:BMI 28.0-28.9,adult Start:21-Jan-2020 Instruction Type:Patient Education Patient Instructions Indication:BMI 28.0-28.9,adult Start:21-Jan-2020 Instruction Type:Provider Instructions for Treatment How to access health informa tion online Indication:Diabetes mellitus type 2, uncontrolled, without complications Start:06-May-2019 Instruction Type:Patient Education How to access health informa tion online - Detail Indication:Diabetes mellitus type 2, uncontrolled, without complications Start:06-May-2019 Instruction Type:Patient Education Patient Instructions Indication:Diabetes mellitus type 2, uncontrolled, without complications Start:06-May-2019 Instruction Type:Provider Instructions for Treatment How to access health informa tion online Indication:Diabetes mellitus type 2, uncontrolled, without complications Start:28-Jan-2019 Instruction Type:Patient Education How to access health informa tion online - Detail Indication:Diabetes mellitus type 2, uncontrolled, without complications Start:28-Jan-2019 Instruction Type:Patient Education Patient Instructions Indication:Diabetes mellitus type 2, uncontrolled, without complications Start:28-Jan-2019 Instruction Type:Provider Instructions for Treatment How to access health informa tion online Indication:BMI 29.0-29.9,adult Start:20-Aug-2018 Instruction Type:Patient Education How to access health informa tion online - Detail Indication:BMI 29.0-29.9,adult Start:20-Aug-2018 Instruction Type:Patient Education Patient Instructions Indication:BMI 29.0-29.9,adult Start:20-Aug-2018 Instruction Type:Provider Instructions for Treatment How to access health informa tion online Indication:Diabetes mellitus type 2, uncontrolled, without complications Start:02-Jul-2018 Instruction Type:Patient Education How to access health informa tion online - Detail Indication:Diabetes mellitus type 2, uncontrolled, without complications Start:02-Jul-2018 Instruction Type:Patient Education Patient Instructions Indication:Diabetes mellitus type 2, uncontrolled, without complications Start:02-Jul-2018 Instruction Type:Provider Instructions for Treatment Patient Instructions Indication:Low back pain, episodic Start:30-Apr-2018 Instruction Type:Provider Instructions for Treatment How to access health informa tion online Indication:Rash Start:26-Mar-2018 Instruction Type:Patient Education How to access health informa tion online - Detail Indication:Rash Start:26-Mar-2018 Instruction Type:Patient Education Patient Instructions Indication:Rash Start:26-Mar-2018 Instruction Type:Provider Instructions for Treatment How to access health informa tion online Indication:Nonsmoker Start:21-Mar-2018 Instruction Type:Patient Education How to access health informa tion online - Detail Indication:Nonsmoker Start:21-Mar-2018 Instruction Type:Patient Education Patient Instructions Indication:Nonsmoker Start:21-Mar-2018 Instruction Type:Provider Instructions for Treatment How to access health informa tion online Indication:Nonsmoker Start:05-Mar-2018 Instruction Type:Patient Education How to access health informa tion online - Detail Indication:Nonsmoker Start:05-Mar-2018 Instruction Type:Patient Education Patient Instructions Indication:Nonsmoker Start:05-Mar-2018 Instruction Type:Provider Instructions for Treatment How to access health informa tion online Indication:BMI 28.0-28.9,adult Start:09-Jan-2018 Instruction Type:Patient Education How to access health informa tion online - Detail Indication:BMI 28.0-28.9,adult Start:09-Jan-2018 Instruction Type:Patient Education Patient Instructions Indication:BMI 28.0-28.9,adult Start:09-Jan-2018 Instruction Type:Provider Instructions for Treatment How to access health informa tion online Indication:Diabetes mellitus type 2, uncontrolled, without complications Start:02-Dec-2017 Instruction Type:Patient Education How to access health informa tion online - Detail Indication:Diabetes mellitus type 2, uncontrolled, without complications Start:02-Dec-2017 Instruction Type:Patient Education Patient Instructions Indication:Diabetes mellitus type 2, uncontrolled, without complications Start:02-Dec-2017 Instruction Type:Provider Instructions for Treatment How to access health informa tion online Indication:Nonsmoker Start:05-Nov-2017 Instruction Type:Patient Education How to access health informa tion online - Detail Indication:Nonsmoker Start:05-Nov-2017 Instruction Type:Patient Education Patient Instructions Indication:Nonsmoker Start:05-Nov-2017 Instruction Type:Provider Instructions for Treatment Patient Instructions Indication:Chest congestion Start:20-Sep-2017 Instruction Type:Provider Instructions for Treatment How to access health informa tion online Indication:Chest congestion Start:20-Sep-2017 Instruction Type:Patient Education How to access health informa tion online - Detail Indication:Chest congestion Start:20-Sep-2017 Instruction Type:Patient Education Patient Instructions Indication:Chest congestion Start:20-Sep-2017 Instruction Type:Provider Instructions for Treatment How to access health informa tion online Indication:Nonsmoker Start:07-Aug-2017 Instruction Type:Patient Education How to access health informa tion online - Detail Indication:Nonsmoker Start:07-Aug-2017 Instruction Type:Patient Education Patient Instructions Indication:Nonsmoker Start:07-Aug-2017 Instruction Type:Provider Instructions for Treatment How to access health informa tion online Indication:Diabetes mellitus type 2, uncontrolled, without complications Start:31-Jul-2017 Instruction Type:Patient Education How to access health informa tion online - Detail Indication:Diabetes mellitus type 2, uncontrolled, without complications Start:31-Jul-2017 Instruction Type:Patient Education Patient Instructions Indication:Diabetes mellitus type 2, uncontrolled, without complications Start:31-Jul-2017 Instruction Type:Provider Instructions for Treatment How to access health informa tion online Indication:Anxiety Start:22-Apr-2017 Instruction Type:Patient Education How to access health informa tion online - Detail Indication:Anxiety Start:22-Apr-2017 Instruction Type:Patient Education Patient Instructions Indication:Anxiety Start:22-Apr-2017 Instruction Type:Provider Instructions for Treatment How to access health informa tion online Indication:Diabetes mellitus type 2, uncontrolled, without complications Start:22-Apr-2017 Instruction Type:Patient Education How to access health informa tion online - Detail Indication:Diabetes mellitus type 2, uncontrolled, without complications Start:22-Apr-2017 Instruction Type:Patient Education Patient Instructions Indication:Diabetes mellitus type 2, uncontrolled, without complications Start:22-Apr-2017 Instruction Type:Provider Instructions for Treatment How to access health informa tion online Indication:Flu-like symptoms Start:17-Aug-2016 Instruction Type:Patient Education How to access health informa tion online - Detail Indication:Flu-like symptoms Start:17-Aug-2016 Instruction Type:Patient Education Patient Instructions Indication:Flu-like symptoms Start:17-Aug-2016 Instruction Type:Provider Instructions for Treatment How to access health informa tion online - Detail Indication:Diabetes mellitus type 2, uncontrolled, without complications Start:15-Sep-2015 Instruction Type:Patient Education How to access health informa tion online Indication:Diabetes mellitus type 2, uncontrolled, without complications Start:15-Sep-2015 Instruction Type:Patient Education Patient Instructions Indication:Diabetes mellitus type 2, uncontrolled, without complications Start:15-Sep-2015 Instruction Type:Provider Instructions for Treatment Patient Instructions Indication:Hypercholesteremia Start:03-Aug-2015 Instruction Type:Provider Instructions for Treatment How to access health informa tion online Indication:Diabetes mellitus type 2, uncontrolled, without complications Start:01-Jul-2015 Instruction Type:Patient Education How to access health informa tion online - Detail Indication:Diabetes mellitus type 2, uncontrolled, without complications Start:01-Jul-2015 Instruction Type:Patient Education Patient Instructions Indication:Diabetes mellitus type 2, uncontrolled, without complications Start:01-Jul-2015 Instruction Type:Provider Instructions for Treatment Patient Instructions Indication:Anxiety Start:16-Feb-2015 Instruction Type:Provider Instructions for Treatment How to access health informa tion online Indication:Anxiety Start:16-Feb-2015 Instruction Type:Patient Education How to access health informa tion online - Detail Indication:Anxiety Start:16-Feb-2015 Instruction Type:Patient Education Patient Instructions Indication:Anxiety Start:06-Aug-2012 Instruction Type:Provider Instructions for Treatment Patient Instructions Indication:Benign paroxysmal positional vertigo Start:30-Jun-2012 Instruction Type:Provider Instructions for Treatment [facility]; [facility] Work Phone: Instructions* Name Dates Details Patient Instructions Indication:BMI 30.0-30.9,adult Start:25-Jul-2022 Instruction Type:Provider Instructions for Treatment How to Access Health Informa tion Online using Patient Portal and [employer]rd [employer] Apps Indication:BMI 30.0-30.9,adult Start:25-Jul-2022 Instruction Type:Patient Education Patient Instructions Indication:BMI 30.0-30.9,adult Start:08-Jan-2022 Instruction Type:Provider Instructions for Treatment How to Access Health Informa tion Online using Patient Portal and [employer]rd [employer] Apps Indication:BMI 30.0-30.9,adult Start:08-Jan-2022 Instruction Type:Patient Education Patient Instructions Indication:Nonsmoker Start:12-May-2021 Instruction Type:Provider Instructions for Treatment How to Access Health Informa tion Online using Patient Portal and [employer]rd [employer] Apps Indication:Nonsmoker Start:12-May-2021 Instruction Type:Patient Education How to Access Health Informa tion Online using Patient Portal and [employer]rd [employer] Apps Indication:Nonsmoker Start:20-Mar-2021 Instruction Type:Patient Education Patient Instructions Indication:Nonsmoker Start:20-Mar-2021 Instruction Type:Provider Instructions for Treatment How to access health informa tion online Indication:Nonsmoker Start:24-Aug-2020 Instruction Type:Patient Education How to access health informa tion online - Detail Indication:Nonsmoker Start:24-Aug-2020 Instruction Type:Patient Education Patient Instructions Indication:Nonsmoker Start:24-Aug-2020 Instruction Type:Provider Instructions for Treatment How to access health informa tion online Indication:Nonsmoker Start:28-Apr-2020 Instruction Type:Patient Education How to access health informa tion online - Detail Indication:Nonsmoker Start:28-Apr-2020 Instruction Type:Patient Education Patient Instructions Indication:Nonsmoker Start:28-Apr-2020 Instruction Type:Provider Instructions for Treatment How to access health informa tion online Indication:Nonsmoker Start:12-Feb-2020 Instruction Type:Patient Education How to access health informa tion online - Detail Indication:Nonsmoker Start:12-Feb-2020 Instruction Type:Patient Education Patient Instructions Indication:Nonsmoker Start:12-Feb-2020 Instruction Type:Provider Instructions for Treatment How to access health informa tion online Indication:BMI 28.0-28.9,adult Start:21-Jan-2020 Instruction Type:Patient Education How to access health informa tion online - Detail Indication:BMI 28.0-28.9,adult Start:21-Jan-2020 Instruction Type:Patient Education Patient Instructions Indication:BMI 28.0-28.9,adult Start:21-Jan-2020 Instruction Type:Provider Instructions for Treatment How to access health informa tion online Indication:Diabetes mellitus type 2, uncontrolled, without complications Start:06-May-2019 Instruction Type:Patient Education How to access health informa tion online - Detail Indication:Diabetes mellitus type 2, uncontrolled, without complications Start:06-May-2019 Instruction Type:Patient Education Patient Instructions Indication:Diabetes mellitus type 2, uncontrolled, without complications Start:06-May-2019 Instruction Type:Provider Instructions for Treatment How to access health informa tion online Indication:Diabetes mellitus type 2, uncontrolled, without complications Start:28-Jan-2019 Instruction Type:Patient Education How to access health informa tion online - Detail Indication:Diabetes mellitus type 2, uncontrolled, without complications Start:28-Jan-2019 Instruction Type:Patient Education Patient Instructions Indication:Diabetes mellitus type 2, uncontrolled, without complications Start:28-Jan-2019 Instruction Type:Provider Instructions for Treatment How to access health informa tion online Indication:BMI 29.0-29.9,adult Start:20-Aug-2018 Instruction Type:Patient Education How to access health informa tion online - Detail Indication:BMI 29.0-29.9,adult Start:20-Aug-2018 Instruction Type:Patient Education Patient Instructions Indication:BMI 29.0-29.9,adult Start:20-Aug-2018 Instruction Type:Provider Instructions for Treatment How to access health informa tion online Indication:Diabetes mellitus type 2, uncontrolled, without complications Start:02-Jul-2018 Instruction Type:Patient Education How to access health informa tion online - Detail Indication:Diabetes mellitus type 2, uncontrolled, without complications Start:02-Jul-2018 Instruction Type:Patient Education Patient Instructions Indication:Diabetes mellitus type 2, uncontrolled, without complications Start:02-Jul-2018 Instruction Type:Provider Instructions for Treatment Patient Instructions Indication:Low back pain, episodic Start:30-Apr-2018 Instruction Type:Provider Instructions for Treatment How to access health informa tion online Indication:Rash Start:26-Mar-2018 Instruction Type:Patient Education How to access health informa tion online - Detail Indication:Rash Start:26-Mar-2018 Instruction Type:Patient Education Patient Instructions Indication:Rash Start:26-Mar-2018 Instruction Type:Provider Instructions for Treatment How to access health informa tion online Indication:Nonsmoker Start:21-Mar-2018 Instruction Type:Patient Education How to access health informa tion online - Detail Indication:Nonsmoker Start:21-Mar-2018 Instruction Type:Patient Education Patient Instructions Indication:Nonsmoker Start:21-Mar-2018 Instruction Type:Provider Instructions for Treatment How to access health informa tion online Indication:Nonsmoker Start:05-Mar-2018 Instruction Type:Patient Education How to access health informa tion online - Detail Indication:Nonsmoker Start:05-Mar-2018 Instruction Type:Patient Education Patient Instructions Indication:Nonsmoker Start:05-Mar-2018 Instruction Type:Provider Instructions for Treatment How to access health informa tion online Indication:BMI 28.0-28.9,adult Start:09-Jan-2018 Instruction Type:Patient Education How to access health informa tion online - Detail Indication:BMI 28.0-28.9,adult Start:09-Jan-2018 Instruction Type:Patient Education Patient Instructions Indication:BMI 28.0-28.9,adult Start:09-Jan-2018 Instruction Type:Provider Instructions for Treatment How to access health informa tion online Indication:Diabetes mellitus type 2, uncontrolled, without complications Start:02-Dec-2017 Instruction Type:Patient Education How to access health informa tion online - Detail Indication:Diabetes mellitus type 2, uncontrolled, without complications Start:02-Dec-2017 Instruction Type:Patient Education Patient Instructions Indication:Diabetes mellitus type 2, uncontrolled, without complications Start:02-Dec-2017 Instruction Type:Provider Instructions for Treatment How to access health informa tion online Indication:Nonsmoker Start:05-Nov-2017 Instruction Type:Patient Education How to access health informa tion online - Detail Indication:Nonsmoker Start:05-Nov-2017 Instruction Type:Patient Education Patient Instructions Indication:Nonsmoker Start:05-Nov-2017 Instruction Type:Provider Instructions for Treatment Patient Instructions Indication:Chest congestion Start:20-Sep-2017 Instruction Type:Provider Instructions for Treatment How to access health informa tion online Indication:Chest congestion Start:20-Sep-2017 Instruction Type:Patient Education How to access health informa tion online - Detail Indication:Chest congestion Start:20-Sep-2017 Instruction Type:Patient Education Patient Instructions Indication:Chest congestion Start:20-Sep-2017 Instruction Type:Provider Instructions for Treatment How to access health informa tion online Indication:Nonsmoker Start:07-Aug-2017 Instruction Type:Patient Education How to access health informa tion online - Detail Indication:Nonsmoker Start:07-Aug-2017 Instruction Type:Patient Education Patient Instructions Indication:Nonsmoker Start:07-Aug-2017 Instruction Type:Provider Instructions for Treatment How to access health informa tion online Indication:Diabetes mellitus type 2, uncontrolled, without complications Start:31-Jul-2017 Instruction Type:Patient Education How to access health informa tion online - Detail Indication:Diabetes mellitus type 2, uncontrolled, without complications Start:31-Jul-2017 Instruction Type:Patient Education Patient Instructions Indication:Diabetes mellitus type 2, uncontrolled, without complications Start:31-Jul-2017 Instruction Type:Provider Instructions for Treatment How to access health informa tion online Indication:Anxiety Start:22-Apr-2017 Instruction Type:Patient Education How to access health informa tion online - Detail Indication:Anxiety Start:22-Apr-2017 Instruction Type:Patient Education Patient Instructions Indication:Anxiety Start:22-Apr-2017 Instruction Type:Provider Instructions for Treatment How to access health informa tion online Indication:Diabetes mellitus type 2, uncontrolled, without complications Start:22-Apr-2017 Instruction Type:Patient Education How to access health informa tion online - Detail Indication:Diabetes mellitus type 2, uncontrolled, without complications Start:22-Apr-2017 Instruction Type:Patient Education Patient Instructions Indication:Diabetes mellitus type 2, uncontrolled, without complications Start:22-Apr-2017 Instruction Type:Provider Instructions for Treatment How to access health informa tion online Indication:Flu-like symptoms Start:17-Aug-2016 Instruction Type:Patient Education How to access health informa tion online - Detail Indication:Flu-like symptoms Start:17-Aug-2016 Instruction Type:Patient Education Patient Instructions Indication:Flu-like symptoms Start:17-Aug-2016 Instruction Type:Provider Instructions for Treatment How to access health informa tion online - Detail Indication:Diabetes mellitus type 2, uncontrolled, without complications Start:15-Sep-2015 Instruction Type:Patient Education How to access health informa tion online Indication:Diabetes mellitus type 2, uncontrolled, without complications Start:15-Sep-2015 Instruction Type:Patient Education Patient Instructions Indication:Diabetes mellitus type 2, uncontrolled, without complications Start:15-Sep-2015 Instruction Type:Provider Instructions for Treatment Patient Instructions Indication:Hypercholesteremia Start:03-Aug-2015 Instruction Type:Provider Instructions for Treatment How to access health informa tion online Indication:Diabetes mellitus type 2, uncontrolled, without complications Start:01-Jul-2015 Instruction Type:Patient Education How to access health informa tion online - Detail Indication:Diabetes mellitus type 2, uncontrolled, without complications Start:01-Jul-2015 Instruction Type:Patient Education Patient Instructions Indication:Diabetes mellitus type 2, uncontrolled, without complications Start:01-Jul-2015 Instruction Type:Provider Instructions for Treatment Patient Instructions Indication:Anxiety Start:16-Feb-2015 Instruction Type:Provider Instructions for Treatment How to access health informa tion online Indication:Anxiety Start:16-Feb-2015 Instruction Type:Patient Education How to access health informa tion online - Detail Indication:Anxiety Start:16-Feb-2015 Instruction Type:Patient Education Patient Instructions Indication:Anxiety Start:06-Aug-2012 Instruction Type:Provider Instructions for Treatment Patient Instructions Indication:Benign paroxysmal positional vertigo Start:30-Jun-2012 Instruction Type:Provider Instructions for Treatment [facility]; [facility] Work Phone: Instructions* Name Dates Details Patient Instructions Indication:BMI 31.0-31.9,adult Start:23-Jan-2023 Instruction Type:Provider Instructions for Treatment How to Access Health Informa tion Online using Patient Portal and [employer]rd [employer] Apps Indication:BMI 31.0-31.9,adult Start:23-Jan-2023 Instruction Type:Patient Education Patient Instructions Indication:BMI 30.0-30.9,adult Start:25-Jul-2022 Instruction Type:Provider Instructions for Treatment How to Access Health Informa tion Online using Patient Portal and [employer]rd [employer] Apps Indication:BMI 30.0-30.9,adult Start:25-Jul-2022 Instruction Type:Patient Education Patient Instructions Indication:BMI 30.0-30.9,adult Start:08-Jan-2022 Instruction Type:Provider Instructions for Treatment How to Access Health Informa tion Online using Patient Portal and [employer]rd [employer] Apps Indication:BMI 30.0-30.9,adult Start:08-Jan-2022 Instruction Type:Patient Education Patient Instructions Indication:Nonsmoker Start:12-May-2021 Instruction Type:Provider Instructions for Treatment How to Access Health Informa tion Online using Patient Portal and [employer]rd [employer] Apps Indication:Nonsmoker Start:12-May-2021 Instruction Type:Patient Education How to Access Health Informa tion Online using Patient Portal and [employer]rd [employer] Apps Indication:Nonsmoker Start:20-Mar-2021 Instruction Type:Patient Education Patient Instructions Indication:Nonsmoker Start:20-Mar-2021 Instruction Type:Provider Instructions for Treatment How to access health informa tion online Indication:Nonsmoker Start:24-Aug-2020 Instruction Type:Patient Education How to access health informa tion online - Detail Indication:Nonsmoker Start:24-Aug-2020 Instruction Type:Patient Education Patient Instructions Indication:Nonsmoker Start:24-Aug-2020 Instruction Type:Provider Instructions for Treatment How to access health informa tion online Indication:Nonsmoker Start:28-Apr-2020 Instruction Type:Patient Education How to access health informa tion online - Detail Indication:Nonsmoker Start:28-Apr-2020 Instruction Type:Patient Education Patient Instructions Indication:Nonsmoker Start:28-Apr-2020 Instruction Type:Provider Instructions for Treatment How to access health informa tion online Indication:Nonsmoker Start:12-Feb-2020 Instruction Type:Patient Education How to access health informa tion online - Detail Indication:Nonsmoker Start:12-Feb-2020 Instruction Type:Patient Education Patient Instructions Indication:Nonsmoker Start:12-Feb-2020 Instruction Type:Provider Instructions for Treatment How to access health informa tion online Indication:BMI 28.0-28.9,adult Start:21-Jan-2020 Instruction Type:Patient Education How to access health informa tion online - Detail Indication:BMI 28.0-28.9,adult Start:21-Jan-2020 Instruction Type:Patient Education Patient Instructions Indication:BMI 28.0-28.9,adult Start:21-Jan-2020 Instruction Type:Provider Instructions for Treatment How to access health informa tion online Indication:Diabetes mellitus type 2, uncontrolled, without complications Start:06-May-2019 Instruction Type:Patient Education How to access health informa tion online - Detail Indication:Diabetes mellitus type 2, uncontrolled, without complications Start:06-May-2019 Instruction Type:Patient Education Patient Instructions Indication:Diabetes mellitus type 2, uncontrolled, without complications Start:06-May-2019 Instruction Type:Provider Instructions for Treatment How to access health informa tion online Indication:Diabetes mellitus type 2, uncontrolled, without complications Start:28-Jan-2019 Instruction Type:Patient Education How to access health informa tion online - Detail Indication:Diabetes mellitus type 2, uncontrolled, without complications Start:28-Jan-2019 Instruction Type:Patient Education Patient Instructions Indication:Diabetes mellitus type 2, uncontrolled, without complications Start:28-Jan-2019 Instruction Type:Provider Instructions for Treatment How to access health informa tion online Indication:BMI 29.0-29.9,adult Start:20-Aug-2018 Instruction Type:Patient Education How to access health informa tion online - Detail Indication:BMI 29.0-29.9,adult Start:20-Aug-2018 Instruction Type:Patient Education Patient Instructions Indication:BMI 29.0-29.9,adult Start:20-Aug-2018 Instruction Type:Provider Instructions for Treatment How to access health informa tion online Indication:Diabetes mellitus type 2, uncontrolled, without complications Start:02-Jul-2018 Instruction Type:Patient Education How to access health informa tion online - Detail Indication:Diabetes mellitus type 2, uncontrolled, without complications Start:02-Jul-2018 Instruction Type:Patient Education Patient Instructions Indication:Diabetes mellitus type 2, uncontrolled, without complications Start:02-Jul-2018 Instruction Type:Provider Instructions for Treatment Patient Instructions Indication:Low back pain, episodic Start:30-Apr-2018 Instruction Type:Provider Instructions for Treatment How to access health informa tion online Indication:Rash Start:26-Mar-2018 Instruction Type:Patient Education How to access health informa tion online - Detail Indication:Rash Start:26-Mar-2018 Instruction Type:Patient Education Patient Instructions Indication:Rash Start:26-Mar-2018 Instruction Type:Provider Instructions for Treatment How to access health informa tion online Indication:Nonsmoker Start:21-Mar-2018 Instruction Type:Patient Education How to access health informa tion online - Detail Indication:Nonsmoker Start:21-Mar-2018 Instruction Type:Patient Education Patient Instructions Indication:Nonsmoker Start:21-Mar-2018 Instruction Type:Provider Instructions for Treatment How to access health informa tion online Indication:Nonsmoker Start:05-Mar-2018 Instruction Type:Patient Education How to access health informa tion online - Detail Indication:Nonsmoker Start:05-Mar-2018 Instruction Type:Patient Education Patient Instructions Indication:Nonsmoker Start:05-Mar-2018 Instruction Type:Provider Instructions for Treatment How to access health informa tion online Indication:BMI 28.0-28.9,adult Start:09-Jan-2018 Instruction Type:Patient Education How to access health informa tion online - Detail Indication:BMI 28.0-28.9,adult Start:09-Jan-2018 Instruction Type:Patient Education Patient Instructions Indication:BMI 28.0-28.9,adult Start:09-Jan-2018 Instruction Type:Provider Instructions for Treatment How to access health informa tion online Indication:Diabetes mellitus type 2, uncontrolled, without complications Start:02-Dec-2017 Instruction Type:Patient Education How to access health informa tion online - Detail Indication:Diabetes mellitus type 2, uncontrolled, without complications Start:02-Dec-2017 Instruction Type:Patient Education Patient Instructions Indication:Diabetes mellitus type 2, uncontrolled, without complications Start:02-Dec-2017 Instruction Type:Provider Instructions for Treatment How to access health informa tion online Indication:Nonsmoker Start:05-Nov-2017 Instruction Type:Patient Education How to access health informa tion online - Detail Indication:Nonsmoker Start:05-Nov-2017 Instruction Type:Patient Education Patient Instructions Indication:Nonsmoker Start:05-Nov-2017 Instruction Type:Provider Instructions for Treatment Patient Instructions Indication:Chest congestion Start:20-Sep-2017 Instruction Type:Provider Instructions for Treatment How to access health informa tion online Indication:Chest congestion Start:20-Sep-2017 Instruction Type:Patient Education How to access health informa tion online - Detail Indication:Chest congestion Start:20-Sep-2017 Instruction Type:Patient Education Patient Instructions Indication:Chest congestion Start:20-Sep-2017 Instruction Type:Provider Instructions for Treatment How to access health informa tion online Indication:Nonsmoker Start:07-Aug-2017 Instruction Type:Patient Education How to access health informa tion online - Detail Indication:Nonsmoker Start:07-Aug-2017 Instruction Type:Patient Education Patient Instructions Indication:Nonsmoker Start:07-Aug-2017 Instruction Type:Provider Instructions for Treatment How to access health informa tion online Indication:Diabetes mellitus type 2, uncontrolled, without complications Start:31-Jul-2017 Instruction Type:Patient Education How to access health informa tion online - Detail Indication:Diabetes mellitus type 2, uncontrolled, without complications Start:31-Jul-2017 Instruction Type:Patient Education Patient Instructions Indication:Diabetes mellitus type 2, uncontrolled, without complications Start:31-Jul-2017 Instruction Type:Provider Instructions for Treatment How to access health informa tion online Indication:Anxiety Start:22-Apr-2017 Instruction Type:Patient Education How to access health informa tion online - Detail Indication:Anxiety Start:22-Apr-2017 Instruction Type:Patient Education Patient Instructions Indication:Anxiety Start:22-Apr-2017 Instruction Type:Provider Instructions for Treatment How to access health informa tion online Indication:Diabetes mellitus type 2, uncontrolled, without complications Start:22-Apr-2017 Instruction Type:Patient Education How to access health informa tion online - Detail Indication:Diabetes mellitus type 2, uncontrolled, without complications Start:22-Apr-2017 Instruction Type:Patient Education Patient Instructions Indication:Diabetes mellitus type 2, uncontrolled, without complications Start:22-Apr-2017 Instruction Type:Provider Instructions for Treatment How to access health informa tion online Indication:Flu-like symptoms Start:17-Aug-2016 Instruction Type:Patient Education How to access health informa tion online - Detail Indication:Flu-like symptoms Start:17-Aug-2016 Instruction Type:Patient Education Patient Instructions Indication:Flu-like symptoms Start:17-Aug-2016 Instruction Type:Provider Instructions for Treatment How to access health informa tion online - Detail Indication:Diabetes mellitus type 2, uncontrolled, without complications Start:15-Sep-2015 Instruction Type:Patient Education How to access health informa tion online Indication:Diabetes mellitus type 2, uncontrolled, without complications Start:15-Sep-2015 Instruction Type:Patient Education Patient Instructions Indication:Diabetes mellitus type 2, uncontrolled, without complications Start:15-Sep-2015 Instruction Type:Provider Instructions for Treatment Patient Instructions Indication:Hypercholesteremia Start:03-Aug-2015 Instruction Type:Provider Instructions for Treatment How to access health informa tion online Indication:Diabetes mellitus type 2, uncontrolled, without complications Start:01-Jul-2015 Instruction Type:Patient Education How to access health informa tion online - Detail Indication:Diabetes mellitus type 2, uncontrolled, without complications Start:01-Jul-2015 Instruction Type:Patient Education Patient Instructions Indication:Diabetes mellitus type 2, uncontrolled, without complications Start:01-Jul-2015 Instruction Type:Provider Instructions for Treatment Patient Instructions Indication:Anxiety Start:16-Feb-2015 Instruction Type:Provider Instructions for Treatment How to access health informa tion online Indication:Anxiety Start:16-Feb-2015 Instruction Type:Patient Education How to access health informa tion online - Detail Indication:Anxiety Start:16-Feb-2015 Instruction Type:Patient Education Patient Instructions Indication:Anxiety Start:06-Aug-2012 Instruction Type:Provider Instructions for Treatment Patient Instructions Indication:Benign paroxysmal positional vertigo Start:30-Jun-2012 Instruction Type:Provider Instructions for Treatment [facility]; [facility] Work Phone: Instructions* Name Dates Details Patient Instructions Indication:BMI 31.0-31.9,adult Start:23-Jan-2023 Instruction Type:Provider Instructions for Treatment How to Access Health Informa tion Online using Patient Portal and [employer]rd [employer] Apps Indication:BMI 31.0-31.9,adult Start:23-Jan-2023 Instruction Type:Patient Education Patient Instructions Indication:BMI 30.0-30.9,adult Start:25-Jul-2022 Instruction Type:Provider Instructions for Treatment How to Access Health Informa tion Online using Patient Portal and [employer]rd [employer] Apps Indication:BMI 30.0-30.9,adult Start:25-Jul-2022 Instruction Type:Patient Education Patient Instructions Indication:BMI 30.0-30.9,adult Start:08-Jan-2022 Instruction Type:Provider Instructions for Treatment How to Access Health Informa tion Online using Patient Portal and [employer]rd [employer] Apps Indication:BMI 30.0-30.9,adult Start:08-Jan-2022 Instruction Type:Patient Education Patient Instructions Indication:Nonsmoker Start:12-May-2021 Instruction Type:Provider Instructions for Treatment How to Access Health Informa tion Online using Patient Portal and [employer]rd [employer] Apps Indication:Nonsmoker Start:12-May-2021 Instruction Type:Patient Education How to Access Health Informa tion Online using Patient Portal and [employer]rd [employer] Apps Indication:Nonsmoker Start:20-Mar-2021 Instruction Type:Patient Education Patient Instructions Indication:Nonsmoker Start:20-Mar-2021 Instruction Type:Provider Instructions for Treatment How to access health informa tion online Indication:Nonsmoker Start:24-Aug-2020 Instruction Type:Patient Education How to access health informa tion online - Detail Indication:Nonsmoker Start:24-Aug-2020 Instruction Type:Patient Education Patient Instructions Indication:Nonsmoker Start:24-Aug-2020 Instruction Type:Provider Instructions for Treatment How to access health informa tion online Indication:Nonsmoker Start:28-Apr-2020 Instruction Type:Patient Education How to access health informa tion online - Detail Indication:Nonsmoker Start:28-Apr-2020 Instruction Type:Patient Education Patient Instructions Indication:Nonsmoker Start:28-Apr-2020 Instruction Type:Provider Instructions for Treatment How to access health informa tion online Indication:Nonsmoker Start:12-Feb-2020 Instruction Type:Patient Education How to access health informa tion online - Detail Indication:Nonsmoker Start:12-Feb-2020 Instruction Type:Patient Education Patient Instructions Indication:Nonsmoker Start:12-Feb-2020 Instruction Type:Provider Instructions for Treatment How to access health informa tion online Indication:BMI 28.0-28.9,adult Start:21-Jan-2020 Instruction Type:Patient Education How to access health informa tion online - Detail Indication:BMI 28.0-28.9,adult Start:21-Jan-2020 Instruction Type:Patient Education Patient Instructions Indication:BMI 28.0-28.9,adult Start:21-Jan-2020 Instruction Type:Provider Instructions for Treatment How to access health informa tion online Indication:Diabetes mellitus type 2, uncontrolled, without complications Start:06-May-2019 Instruction Type:Patient Education How to access health informa tion online - Detail Indication:Diabetes mellitus type 2, uncontrolled, without complications Start:06-May-2019 Instruction Type:Patient Education Patient Instructions Indication:Diabetes mellitus type 2, uncontrolled, without complications Start:06-May-2019 Instruction Type:Provider Instructions for Treatment How to access health informa tion online Indication:Diabetes mellitus type 2, uncontrolled, without complications Start:28-Jan-2019 Instruction Type:Patient Education How to access health informa tion online - Detail Indication:Diabetes mellitus type 2, uncontrolled, without complications Start:28-Jan-2019 Instruction Type:Patient Education Patient Instructions Indication:Diabetes mellitus type 2, uncontrolled, without complications Start:28-Jan-2019 Instruction Type:Provider Instructions for Treatment How to access health informa tion online Indication:BMI 29.0-29.9,adult Start:20-Aug-2018 Instruction Type:Patient Education How to access health informa tion online - Detail Indication:BMI 29.0-29.9,adult Start:20-Aug-2018 Instruction Type:Patient Education Patient Instructions Indication:BMI 29.0-29.9,adult Start:20-Aug-2018 Instruction Type:Provider Instructions for Treatment How to access health informa tion online Indication:Diabetes mellitus type 2, uncontrolled, without complications Start:02-Jul-2018 Instruction Type:Patient Education How to access health informa tion online - Detail Indication:Diabetes mellitus type 2, uncontrolled, without complications Start:02-Jul-2018 Instruction Type:Patient Education Patient Instructions Indication:Diabetes mellitus type 2, uncontrolled, without complications Start:02-Jul-2018 Instruction Type:Provider Instructions for Treatment Patient Instructions Indication:Low back pain, episodic Start:30-Apr-2018 Instruction Type:Provider Instructions for Treatment How to access health informa tion online Indication:Rash Start:26-Mar-2018 Instruction Type:Patient Education How to access health informa tion online - Detail Indication:Rash Start:26-Mar-2018 Instruction Type:Patient Education Patient Instructions Indication:Rash Start:26-Mar-2018 Instruction Type:Provider Instructions for Treatment How to access health informa tion online Indication:Nonsmoker Start:21-Mar-2018 Instruction Type:Patient Education How to access health informa tion online - Detail Indication:Nonsmoker Start:21-Mar-2018 Instruction Type:Patient Education Patient Instructions Indication:Nonsmoker Start:21-Mar-2018 Instruction Type:Provider Instructions for Treatment How to access health informa tion online Indication:Nonsmoker Start:05-Mar-2018 Instruction Type:Patient Education How to access health informa tion online - Detail Indication:Nonsmoker Start:05-Mar-2018 Instruction Type:Patient Education Patient Instructions Indication:Nonsmoker Start:05-Mar-2018 Instruction Type:Provider Instructions for Treatment How to access health informa tion online Indication:BMI 28.0-28.9,adult Start:09-Jan-2018 Instruction Type:Patient Education How to access health informa tion online - Detail Indication:BMI 28.0-28.9,adult Start:09-Jan-2018 Instruction Type:Patient Education Patient Instructions Indication:BMI 28.0-28.9,adult Start:09-Jan-2018 Instruction Type:Provider Instructions for Treatment How to access health informa tion online Indication:Diabetes mellitus type 2, uncontrolled, without complications Start:02-Dec-2017 Instruction Type:Patient Education How to access health informa tion online - Detail Indication:Diabetes mellitus type 2, uncontrolled, without complications Start:02-Dec-2017 Instruction Type:Patient Education Patient Instructions Indication:Diabetes mellitus type 2, uncontrolled, without complications Start:02-Dec-2017 Instruction Type:Provider Instructions for Treatment How to access health informa tion online Indication:Nonsmoker Start:05-Nov-2017 Instruction Type:Patient Education How to access health informa tion online - Detail Indication:Nonsmoker Start:05-Nov-2017 Instruction Type:Patient Education Patient Instructions Indication:Nonsmoker Start:05-Nov-2017 Instruction Type:Provider Instructions for Treatment Patient Instructions Indication:Chest congestion Start:20-Sep-2017 Instruction Type:Provider Instructions for Treatment How to access health informa tion online Indication:Chest congestion Start:20-Sep-2017 Instruction Type:Patient Education How to access health informa tion online - Detail Indication:Chest congestion Start:20-Sep-2017 Instruction Type:Patient Education Patient Instructions Indication:Chest congestion Start:20-Sep-2017 Instruction Type:Provider Instructions for Treatment How to access health informa tion online Indication:Nonsmoker Start:07-Aug-2017 Instruction Type:Patient Education How to access health informa tion online - Detail Indication:Nonsmoker Start:07-Aug-2017 Instruction Type:Patient Education Patient Instructions Indication:Nonsmoker Start:07-Aug-2017 Instruction Type:Provider Instructions for Treatment How to access health informa tion online Indication:Diabetes mellitus type 2, uncontrolled, without complications Start:31-Jul-2017 Instruction Type:Patient Education How to access health informa tion online - Detail Indication:Diabetes mellitus type 2, uncontrolled, without complications Start:31-Jul-2017 Instruction Type:Patient Education Patient Instructions Indication:Diabetes mellitus type 2, uncontrolled, without complications Start:31-Jul-2017 Instruction Type:Provider Instructions for Treatment How to access health informa tion online Indication:Anxiety Start:22-Apr-2017 Instruction Type:Patient Education How to access health informa tion online - Detail Indication:Anxiety Start:22-Apr-2017 Instruction Type:Patient Education Patient Instructions Indication:Anxiety Start:22-Apr-2017 Instruction Type:Provider Instructions for Treatment How to access health informa tion online Indication:Diabetes mellitus type 2, uncontrolled, without complications Start:22-Apr-2017 Instruction Type:Patient Education How to access health informa tion online - Detail Indication:Diabetes mellitus type 2, uncontrolled, without complications Start:22-Apr-2017 Instruction Type:Patient Education Patient Instructions Indication:Diabetes mellitus type 2, uncontrolled, without complications Start:22-Apr-2017 Instruction Type:Provider Instructions for Treatment How to access health informa tion online Indication:Flu-like symptoms Start:17-Aug-2016 Instruction Type:Patient Education How to access health informa tion online - Detail Indication:Flu-like symptoms Start:17-Aug-2016 Instruction Type:Patient Education Patient Instructions Indication:Flu-like symptoms Start:17-Aug-2016 Instruction Type:Provider Instructions for Treatment How to access health informa tion online - Detail Indication:Diabetes mellitus type 2, uncontrolled, without complications Start:15-Sep-2015 Instruction Type:Patient Education How to access health informa tion online Indication:Diabetes mellitus type 2, uncontrolled, without complications Start:15-Sep-2015 Instruction Type:Patient Education Patient Instructions Indication:Diabetes mellitus type 2, uncontrolled, without complications Start:15-Sep-2015 Instruction Type:Provider Instructions for Treatment Patient Instructions Indication:Hypercholesteremia Start:03-Aug-2015 Instruction Type:Provider Instructions for Treatment How to access health informa tion online Indication:Diabetes mellitus type 2, uncontrolled, without complications Start:01-Jul-2015 Instruction Type:Patient Education How to access health informa tion online - Detail Indication:Diabetes mellitus type 2, uncontrolled, without complications Start:01-Jul-2015 Instruction Type:Patient Education Patient Instructions Indication:Diabetes mellitus type 2, uncontrolled, without complications Start:01-Jul-2015 Instruction Type:Provider Instructions for Treatment Patient Instructions Indication:Anxiety Start:16-Feb-2015 Instruction Type:Provider Instructions for Treatment How to access health informa tion online Indication:Anxiety Start:16-Feb-2015 Instruction Type:Patient Education How to access health informa tion online - Detail Indication:Anxiety Start:16-Feb-2015 Instruction Type:Patient Education Patient Instructions Indication:Anxiety Start:06-Aug-2012 Instruction Type:Provider Instructions for Treatment Patient Instructions Indication:Benign paroxysmal positional vertigo Start:30-Jun-2012 Instruction Type:Provider Instructions for Treatment [facility]; [facility] Work Phone: Instructions* Name Dates Details Patient Instructions Indication:BMI 31.0-31.9,adult Start:23-Jan-2023 Instruction Type:Provider Instructions for Treatment How to Access Health Informa tion Online using Patient Portal and [employer]rd [employer] Apps Indication:BMI 31.0-31.9,adult Start:23-Jan-2023 Instruction Type:Patient Education Patient Instructions Indication:BMI 30.0-30.9,adult Start:25-Jul-2022 Instruction Type:Provider Instructions for Treatment How to Access Health Informa tion Online using Patient Portal and [employer]rd [employer] Apps Indication:BMI 30.0-30.9,adult Start:25-Jul-2022 Instruction Type:Patient Education Patient Instructions Indication:BMI 30.0-30.9,adult Start:08-Jan-2022 Instruction Type:Provider Instructions for Treatment How to Access Health Informa tion Online using Patient Portal and [employer]rd [employer] Apps Indication:BMI 30.0-30.9,adult Start:08-Jan-2022 Instruction Type:Patient Education Patient Instructions Indication:Nonsmoker Start:12-May-2021 Instruction Type:Provider Instructions for Treatment How to Access Health Informa tion Online using Patient Portal and [employer]rd [employer] Apps Indication:Nonsmoker Start:12-May-2021 Instruction Type:Patient Education How to Access Health Informa tion Online using Patient Portal and [employer]rd [employer] Apps Indication:Nonsmoker Start:20-Mar-2021 Instruction Type:Patient Education Patient Instructions Indication:Nonsmoker Start:20-Mar-2021 Instruction Type:Provider Instructions for Treatment How to access health informa tion online Indication:Nonsmoker Start:24-Aug-2020 Instruction Type:Patient Education How to access health informa tion online - Detail Indication:Nonsmoker Start:24-Aug-2020 Instruction Type:Patient Education Patient Instructions Indication:Nonsmoker Start:24-Aug-2020 Instruction Type:Provider Instructions for Treatment How to access health informa tion online Indication:Nonsmoker Start:28-Apr-2020 Instruction Type:Patient Education How to access health informa tion online - Detail Indication:Nonsmoker Start:28-Apr-2020 Instruction Type:Patient Education Patient Instructions Indication:Nonsmoker Start:28-Apr-2020 Instruction Type:Provider Instructions for Treatment How to access health informa tion online Indication:Nonsmoker Start:12-Feb-2020 Instruction Type:Patient Education How to access health informa tion online - Detail Indication:Nonsmoker Start:12-Feb-2020 Instruction Type:Patient Education Patient Instructions Indication:Nonsmoker Start:12-Feb-2020 Instruction Type:Provider Instructions for Treatment How to access health informa tion online Indication:BMI 28.0-28.9,adult Start:21-Jan-2020 Instruction Type:Patient Education How to access health informa tion online - Detail Indication:BMI 28.0-28.9,adult Start:21-Jan-2020 Instruction Type:Patient Education Patient Instructions Indication:BMI 28.0-28.9,adult Start:21-Jan-2020 Instruction Type:Provider Instructions for Treatment How to access health informa tion online Indication:Diabetes mellitus type 2, uncontrolled, without complications Start:06-May-2019 Instruction Type:Patient Education How to access health informa tion online - Detail Indication:Diabetes mellitus type 2, uncontrolled, without complications Start:06-May-2019 Instruction Type:Patient Education Patient Instructions Indication:Diabetes mellitus type 2, uncontrolled, without complications Start:06-May-2019 Instruction Type:Provider Instructions for Treatment How to access health informa tion online Indication:Diabetes mellitus type 2, uncontrolled, without complications Start:28-Jan-2019 Instruction Type:Patient Education How to access health informa tion online - Detail Indication:Diabetes mellitus type 2, uncontrolled, without complications Start:28-Jan-2019 Instruction Type:Patient Education Patient Instructions Indication:Diabetes mellitus type 2, uncontrolled, without complications Start:28-Jan-2019 Instruction Type:Provider Instructions for Treatment How to access health informa tion online Indication:BMI 29.0-29.9,adult Start:20-Aug-2018 Instruction Type:Patient Education How to access health informa tion online - Detail Indication:BMI 29.0-29.9,adult Start:20-Aug-2018 Instruction Type:Patient Education Patient Instructions Indication:BMI 29.0-29.9,adult Start:20-Aug-2018 Instruction Type:Provider Instructions for Treatment How to access health informa tion online Indication:Diabetes mellitus type 2, uncontrolled, without complications Start:02-Jul-2018 Instruction Type:Patient Education How to access health informa tion online - Detail Indication:Diabetes mellitus type 2, uncontrolled, without complications Start:02-Jul-2018 Instruction Type:Patient Education Patient Instructions Indication:Diabetes mellitus type 2, uncontrolled, without complications Start:02-Jul-2018 Instruction Type:Provider Instructions for Treatment Patient Instructions Indication:Low back pain, episodic Start:30-Apr-2018 Instruction Type:Provider Instructions for Treatment How to access health informa tion online Indication:Rash Start:26-Mar-2018 Instruction Type:Patient Education How to access health informa tion online - Detail Indication:Rash Start:26-Mar-2018 Instruction Type:Patient Education Patient Instructions Indication:Rash Start:26-Mar-2018 Instruction Type:Provider Instructions for Treatment How to access health informa tion online Indication:Nonsmoker Start:21-Mar-2018 Instruction Type:Patient Education How to access health informa tion online - Detail Indication:Nonsmoker Start:21-Mar-2018 Instruction Type:Patient Education Patient Instructions Indication:Nonsmoker Start:21-Mar-2018 Instruction Type:Provider Instructions for Treatment How to access health informa tion online Indication:Nonsmoker Start:05-Mar-2018 Instruction Type:Patient Education How to access health informa tion online - Detail Indication:Nonsmoker Start:05-Mar-2018 Instruction Type:Patient Education Patient Instructions Indication:Nonsmoker Start:05-Mar-2018 Instruction Type:Provider Instructions for Treatment How to access health informa tion online Indication:BMI 28.0-28.9,adult Start:09-Jan-2018 Instruction Type:Patient Education How to access health informa tion online - Detail Indication:BMI 28.0-28.9,adult Start:09-Jan-2018 Instruction Type:Patient Education Patient Instructions Indication:BMI 28.0-28.9,adult Start:09-Jan-2018 Instruction Type:Provider Instructions for Treatment How to access health informa tion online Indication:Diabetes mellitus type 2, uncontrolled, without complications Start:02-Dec-2017 Instruction Type:Patient Education How to access health informa tion online - Detail Indication:Diabetes mellitus type 2, uncontrolled, without complications Start:02-Dec-2017 Instruction Type:Patient Education Patient Instructions Indication:Diabetes mellitus type 2, uncontrolled, without complications Start:02-Dec-2017 Instruction Type:Provider Instructions for Treatment How to access health informa tion online Indication:Nonsmoker Start:05-Nov-2017 Instruction Type:Patient Education How to access health informa tion online - Detail Indication:Nonsmoker Start:05-Nov-2017 Instruction Type:Patient Education Patient Instructions Indication:Nonsmoker Start:05-Nov-2017 Instruction Type:Provider Instructions for Treatment Patient Instructions Indication:Chest congestion Start:20-Sep-2017 Instruction Type:Provider Instructions for Treatment How to access health informa tion online Indication:Chest congestion Start:20-Sep-2017 Instruction Type:Patient Education How to access health informa tion online - Detail Indication:Chest congestion Start:20-Sep-2017 Instruction Type:Patient Education Patient Instructions Indication:Chest congestion Start:20-Sep-2017 Instruction Type:Provider Instructions for Treatment How to access health informa tion online Indication:Nonsmoker Start:07-Aug-2017 Instruction Type:Patient Education How to access health informa tion online - Detail Indication:Nonsmoker Start:07-Aug-2017 Instruction Type:Patient Education Patient Instructions Indication:Nonsmoker Start:07-Aug-2017 Instruction Type:Provider Instructions for Treatment How to access health informa tion online Indication:Diabetes mellitus type 2, uncontrolled, without complications Start:31-Jul-2017 Instruction Type:Patient Education How to access health informa tion online - Detail Indication:Diabetes mellitus type 2, uncontrolled, without complications Start:31-Jul-2017 Instruction Type:Patient Education Patient Instructions Indication:Diabetes mellitus type 2, uncontrolled, without complications Start:31-Jul-2017 Instruction Type:Provider Instructions for Treatment How to access health informa tion online Indication:Anxiety Start:22-Apr-2017 Instruction Type:Patient Education How to access health informa tion online - Detail Indication:Anxiety Start:22-Apr-2017 Instruction Type:Patient Education Patient Instructions Indication:Anxiety Start:22-Apr-2017 Instruction Type:Provider Instructions for Treatment How to access health informa tion online Indication:Diabetes mellitus type 2, uncontrolled, without complications Start:22-Apr-2017 Instruction Type:Patient Education How to access health informa tion online - Detail Indication:Diabetes mellitus type 2, uncontrolled, without complications Start:22-Apr-2017 Instruction Type:Patient Education Patient Instructions Indication:Diabetes mellitus type 2, uncontrolled, without complications Start:22-Apr-2017 Instruction Type:Provider Instructions for Treatment How to access health informa tion online Indication:Flu-like symptoms Start:17-Aug-2016 Instruction Type:Patient Education How to access health informa tion online - Detail Indication:Flu-like symptoms Start:17-Aug-2016 Instruction Type:Patient Education Patient Instructions Indication:Flu-like symptoms Start:17-Aug-2016 Instruction Type:Provider Instructions for Treatment How to access health informa tion online - Detail Indication:Diabetes mellitus type 2, uncontrolled, without complications Start:15-Sep-2015 Instruction Type:Patient Education How to access health informa tion online Indication:Diabetes mellitus type 2, uncontrolled, without complications Start:15-Sep-2015 Instruction Type:Patient Education Patient Instructions Indication:Diabetes mellitus type 2, uncontrolled, without complications Start:15-Sep-2015 Instruction Type:Provider Instructions for Treatment Patient Instructions Indication:Hypercholesteremia Start:03-Aug-2015 Instruction Type:Provider Instructions for Treatment How to access health informa tion online Indication:Diabetes mellitus type 2, uncontrolled, without complications Start:01-Jul-2015 Instruction Type:Patient Education How to access health informa tion online - Detail Indication:Diabetes mellitus type 2, uncontrolled, without complications Start:01-Jul-2015 Instruction Type:Patient Education Patient Instructions Indication:Diabetes mellitus type 2, uncontrolled, without complications Start:01-Jul-2015 Instruction Type:Provider Instructions for Treatment Patient Instructions Indication:Anxiety Start:16-Feb-2015 Instruction Type:Provider Instructions for Treatment How to access health informa tion online Indication:Anxiety Start:16-Feb-2015 Instruction Type:Patient Education How to access health informa tion online - Detail Indication:Anxiety Start:16-Feb-2015 Instruction Type:Patient Education Patient Instructions Indication:Anxiety Start:06-Aug-2012 Instruction Type:Provider Instructions for Treatment Patient Instructions Indication:Benign paroxysmal positional vertigo Start:30-Jun-2012 Instruction Type:Provider Instructions for Treatment [facility]; [facility] Work Phone: Instructions* Name Dates Details Patient Instructions Indication:Nonsmoker Start:13-Mar-2023 Instruction Type:Provider Instructions for Treatment How to Access Health Informa tion Online using Patient Portal and [employer] Apps Indication:Nonsmoker Start:13-Mar-2023 Instruction Type:Patient Education Patient Instructions Indication:BMI 31.0-31.9,adult Start:23-Jan-2023 Instruction Type:Provider Instructions for Treatment How to Access Health Informa tion Online using Patient Portal and [employer] Apps Indication:BMI 31.0-31.9,adult Start:23-Jan-2023 Instruction Type:Patient Education Patient Instructions Indication:BMI 30.0-30.9,adult Start:25-Jul-2022 Instruction Type:Provider Instructions for Treatment How to Access Health Informa tion Online using Patient Portal and [employer] Apps Indication:BMI 30.0-30.9,adult Start:25-Jul-2022 Instruction Type:Patient Education Patient Instructions Indication:BMI 30.0-30.9,adult Start:08-Jan-2022 Instruction Type:Provider Instructions for Treatment How to Access Health Informa tion Online using Patient Portal and [employer] Apps Indication:BMI 30.0-30.9,adult Start:08-Jan-2022 Instruction Type:Patient Education Patient Instructions Indication:Nonsmoker Start:12-May-2021 Instruction Type:Provider Instructions for Treatment How to Access Health Informa tion Online using Patient Portal and [employer] Apps Indication:Nonsmoker Start:12-May-2021 Instruction Type:Patient Education How to Access Health Informa tion Online using Patient Portal and [employer] Apps Indication:Nonsmoker Start:20-Mar-2021 Instruction Type:Patient Education Patient Instructions Indication:Nonsmoker Start:20-Mar-2021 Instruction Type:Provider Instructions for Treatment How to access health informa tion online Indication:Nonsmoker Start:24-Aug-2020 Instruction Type:Patient Education How to access health informa tion online - Detail Indication:Nonsmoker Start:24-Aug-2020 Instruction Type:Patient Education Patient Instructions Indication:Nonsmoker Start:24-Aug-2020 Instruction Type:Provider Instructions for Treatment How to access health informa tion online Indication:Nonsmoker Start:28-Apr-2020 Instruction Type:Patient Education How to access health informa tion online - Detail Indication:Nonsmoker Start:28-Apr-2020 Instruction Type:Patient Education Patient Instructions Indication:Nonsmoker Start:28-Apr-2020 Instruction Type:Provider Instructions for Treatment How to access health informa tion online Indication:Nonsmoker Start:12-Feb-2020 Instruction Type:Patient Education How to access health informa tion online - Detail Indication:Nonsmoker Start:12-Feb-2020 Instruction Type:Patient Education Patient Instructions Indication:Nonsmoker Start:12-Feb-2020 Instruction Type:Provider Instructions for Treatment How to access health informa tion online Indication:BMI 28.0-28.9,adult Start:21-Jan-2020 Instruction Type:Patient Education How to access health informa tion online - Detail Indication:BMI 28.0-28.9,adult Start:21-Jan-2020 Instruction Type:Patient Education Patient Instructions Indication:BMI 28.0-28.9,adult Start:21-Jan-2020 Instruction Type:Provider Instructions for Treatment How to access health informa tion online Indication:Diabetes mellitus type 2, uncontrolled, without complications Start:06-May-2019 Instruction Type:Patient Education How to access health informa tion online - Detail Indication:Diabetes mellitus type 2, uncontrolled, without complications Start:06-May-2019 Instruction Type:Patient Education Patient Instructions Indication:Diabetes mellitus type 2, uncontrolled, without complications Start:06-May-2019 Instruction Type:Provider Instructions for Treatment How to access health informa tion online Indication:Diabetes mellitus type 2, uncontrolled, without complications Start:28-Jan-2019 Instruction Type:Patient Education How to access health informa tion online - Detail Indication:Diabetes mellitus type 2, uncontrolled, without complications Start:28-Jan-2019 Instruction Type:Patient Education Patient Instructions Indication:Diabetes mellitus type 2, uncontrolled, without complications Start:28-Jan-2019 Instruction Type:Provider Instructions for Treatment How to access health informa tion online Indication:BMI 29.0-29.9,adult Start:20-Aug-2018 Instruction Type:Patient Education How to access health informa tion online - Detail Indication:BMI 29.0-29.9,adult Start:20-Aug-2018 Instruction Type:Patient Education Patient Instructions Indication:BMI 29.0-29.9,adult Start:20-Aug-2018 Instruction Type:Provider Instructions for Treatment How to access health informa tion online Indication:Diabetes mellitus type 2, uncontrolled, without complications Start:02-Jul-2018 Instruction Type:Patient Education How to access health informa tion online - Detail Indication:Diabetes mellitus type 2, uncontrolled, without complications Start:02-Jul-2018 Instruction Type:Patient Education Patient Instructions Indication:Diabetes mellitus type 2, uncontrolled, without complications Start:02-Jul-2018 Instruction Type:Provider Instructions for Treatment Patient Instructions Indication:Low back pain, episodic Start:30-Apr-2018 Instruction Type:Provider Instructions for Treatment How to access health informa tion online Indication:Rash Start:26-Mar-2018 Instruction Type:Patient Education How to access health informa tion online - Detail Indication:Rash Start:26-Mar-2018 Instruction Type:Patient Education Patient Instructions Indication:Rash Start:26-Mar-2018 Instruction Type:Provider Instructions for Treatment How to access health informa tion online Indication:Nonsmoker Start:21-Mar-2018 Instruction Type:Patient Education How to access health informa tion online - Detail Indication:Nonsmoker Start:21-Mar-2018 Instruction Type:Patient Education Patient Instructions Indication:Nonsmoker Start:21-Mar-2018 Instruction Type:Provider Instructions for Treatment How to access health informa tion online Indication:Nonsmoker Start:05-Mar-2018 Instruction Type:Patient Education How to access health informa tion online - Detail Indication:Nonsmoker Start:05-Mar-2018 Instruction Type:Patient Education Patient Instructions Indication:Nonsmoker Start:05-Mar-2018 Instruction Type:Provider Instructions for Treatment How to access health informa tion online Indication:BMI 28.0-28.9,adult Start:09-Jan-2018 Instruction Type:Patient Education How to access health informa tion online - Detail Indication:BMI 28.0-28.9,adult Start:09-Jan-2018 Instruction Type:Patient Education Patient Instructions Indication:BMI 28.0-28.9,adult Start:09-Jan-2018 Instruction Type:Provider Instructions for Treatment How to access health informa tion online Indication:Diabetes mellitus type 2, uncontrolled, without complications Start:02-Dec-2017 Instruction Type:Patient Education How to access health informa tion online - Detail Indication:Diabetes mellitus type 2, uncontrolled, without complications Start:02-Dec-2017 Instruction Type:Patient Education Patient Instructions Indication:Diabetes mellitus type 2, uncontrolled, without complications Start:02-Dec-2017 Instruction Type:Provider Instructions for Treatment How to access health informa tion online Indication:Nonsmoker Start:05-Nov-2017 Instruction Type:Patient Education How to access health informa tion online - Detail Indication:Nonsmoker Start:05-Nov-2017 Instruction Type:Patient Education Patient Instructions Indication:Nonsmoker Start:05-Nov-2017 Instruction Type:Provider Instructions for Treatment Patient Instructions Indication:Chest congestion Start:20-Sep-2017 Instruction Type:Provider Instructions for Treatment How to access health informa tion online Indication:Chest congestion Start:20-Sep-2017 Instruction Type:Patient Education How to access health informa tion online - Detail Indication:Chest congestion Start:20-Sep-2017 Instruction Type:Patient Education Patient Instructions Indication:Chest congestion Start:20-Sep-2017 Instruction Type:Provider Instructions for Treatment How to access health informa tion online Indication:Nonsmoker Start:07-Aug-2017 Instruction Type:Patient Education How to access health informa tion online - Detail Indication:Nonsmoker Start:07-Aug-2017 Instruction Type:Patient Education Patient Instructions Indication:Nonsmoker Start:07-Aug-2017 Instruction Type:Provider Instructions for Treatment How to access health informa tion online Indication:Diabetes mellitus type 2, uncontrolled, without complications Start:31-Jul-2017 Instruction Type:Patient Education How to access health informa tion online - Detail Indication:Diabetes mellitus type 2, uncontrolled, without complications Start:31-Jul-2017 Instruction Type:Patient Education Patient Instructions Indication:Diabetes mellitus type 2, uncontrolled, without complications Start:31-Jul-2017 Instruction Type:Provider Instructions for Treatment How to access health informa tion online Indication:Anxiety Start:22-Apr-2017 Instruction Type:Patient Education How to access health informa tion online - Detail Indication:Anxiety Start:22-Apr-2017 Instruction Type:Patient Education Patient Instructions Indication:Anxiety Start:22-Apr-2017 Instruction Type:Provider Instructions for Treatment How to access health informa tion online Indication:Diabetes mellitus type 2, uncontrolled, without complications Start:22-Apr-2017 Instruction Type:Patient Education How to access health informa tion online - Detail Indication:Diabetes mellitus type 2, uncontrolled, without complications Start:22-Apr-2017 Instruction Type:Patient Education Patient Instructions Indication:Diabetes mellitus type 2, uncontrolled, without complications Start:22-Apr-2017 Instruction Type:Provider Instructions for Treatment How to access health informa tion online Indication:Flu-like symptoms Start:17-Aug-2016 Instruction Type:Patient Education How to access health informa tion online - Detail Indication:Flu-like symptoms Start:17-Aug-2016 Instruction Type:Patient Education Patient Instructions Indication:Flu-like symptoms Start:17-Aug-2016 Instruction Type:Provider Instructions for Treatment How to access health informa tion online - Detail Indication:Diabetes mellitus type 2, uncontrolled, without complications Start:15-Sep-2015 Instruction Type:Patient Education How to access health informa tion online Indication:Diabetes mellitus type 2, uncontrolled, without complications Start:15-Sep-2015 Instruction Type:Patient Education Patient Instructions Indication:Diabetes mellitus type 2, uncontrolled, without complications Start:15-Sep-2015 Instruction Type:Provider Instructions for Treatment Patient Instructions Indication:Hypercholesteremia Start:03-Aug-2015 Instruction Type:Provider Instructions for Treatment How to access health informa tion online Indication:Diabetes mellitus type 2, uncontrolled, without complications Start:01-Jul-2015 Instruction Type:Patient Education How to access health informa tion online - Detail Indication:Diabetes mellitus type 2, uncontrolled, without complications Start:01-Jul-2015 Instruction Type:Patient Education Patient Instructions Indication:Diabetes mellitus type 2, uncontrolled, without complications Start:01-Jul-2015 Instruction Type:Provider Instructions for Treatment Patient Instructions Indication:Anxiety Start:16-Feb-2015 Instruction Type:Provider Instructions for Treatment How to access health informa tion online Indication:Anxiety Start:16-Feb-2015 Instruction Type:Patient Education How to access health informa tion online - Detail Indication:Anxiety Start:16-Feb-2015 Instruction Type:Patient Education Patient Instructions Indication:Anxiety Start:06-Aug-2012 Instruction Type:Provider Instructions for Treatment Patient Instructions Indication:Benign paroxysmal positional vertigo Start:30-Jun-2012 Instruction Type:Provider Instructions for Treatment [facility]; [facility] Work Phone: Instructions* Name Dates Details Patient Instructions Indication:Nonsmoker Start:13-Mar-2023 Instruction Type:Provider Instructions for Treatment How to Access Health Informa tion Online using Patient Portal and [employer] Apps Indication:Nonsmoker Start:13-Mar-2023 Instruction Type:Patient Education Patient Instructions Indication:BMI 31.0-31.9,adult Start:23-Jan-2023 Instruction Type:Provider Instructions for Treatment How to Access Health Informa tion Online using Patient Portal and [employer]rd [employer] Apps Indication:BMI 31.0-31.9,adult Start:23-Jan-2023 Instruction Type:Patient Education Patient Instructions Indication:BMI 30.0-30.9,adult Start:25-Jul-2022 Instruction Type:Provider Instructions for Treatment How to Access Health Informa tion Online using Patient Portal and [employer]rd [employer] Apps Indication:BMI 30.0-30.9,adult Start:25-Jul-2022 Instruction Type:Patient Education Patient Instructions Indication:BMI 30.0-30.9,adult Start:08-Jan-2022 Instruction Type:Provider Instructions for Treatment How to Access Health Informa tion Online using Patient Portal and [employer]rd [employer] Apps Indication:BMI 30.0-30.9,adult Start:08-Jan-2022 Instruction Type:Patient Education Patient Instructions Indication:Nonsmoker Start:12-May-2021 Instruction Type:Provider Instructions for Treatment How to Access Health Informa tion Online using Patient Portal and [employer] Apps Indication:Nonsmoker Start:12-May-2021 Instruction Type:Patient Education How to Access Health Informa tion Online using Patient Portal and [employer]rd [employer] Apps Indication:Nonsmoker Start:20-Mar-2021 Instruction Type:Patient Education Patient Instructions Indication:Nonsmoker Start:20-Mar-2021 Instruction Type:Provider Instructions for Treatment How to access health informa tion online Indication:Nonsmoker Start:24-Aug-2020 Instruction Type:Patient Education How to access health informa tion online - Detail Indication:Nonsmoker Start:24-Aug-2020 Instruction Type:Patient Education Patient Instructions Indication:Nonsmoker Start:24-Aug-2020 Instruction Type:Provider Instructions for Treatment How to access health informa tion online Indication:Nonsmoker Start:28-Apr-2020 Instruction Type:Patient Education How to access health informa tion online - Detail Indication:Nonsmoker Start:28-Apr-2020 Instruction Type:Patient Education Patient Instructions Indication:Nonsmoker Start:28-Apr-2020 Instruction Type:Provider Instructions for Treatment How to access health informa tion online Indication:Nonsmoker Start:12-Feb-2020 Instruction Type:Patient Education How to access health informa tion online - Detail Indication:Nonsmoker Start:12-Feb-2020 Instruction Type:Patient Education Patient Instructions Indication:Nonsmoker Start:12-Feb-2020 Instruction Type:Provider Instructions for Treatment How to access health informa tion online Indication:BMI 28.0-28.9,adult Start:21-Jan-2020 Instruction Type:Patient Education How to access health informa tion online - Detail Indication:BMI 28.0-28.9,adult Start:21-Jan-2020 Instruction Type:Patient Education Patient Instructions Indication:BMI 28.0-28.9,adult Start:21-Jan-2020 Instruction Type:Provider Instructions for Treatment How to access health informa tion online Indication:Diabetes mellitus type 2, uncontrolled, without complications Start:06-May-2019 Instruction Type:Patient Education How to access health informa tion online - Detail Indication:Diabetes mellitus type 2, uncontrolled, without complications Start:06-May-2019 Instruction Type:Patient Education Patient Instructions Indication:Diabetes mellitus type 2, uncontrolled, without complications Start:06-May-2019 Instruction Type:Provider Instructions for Treatment How to access health informa tion online Indication:Diabetes mellitus type 2, uncontrolled, without complications Start:28-Jan-2019 Instruction Type:Patient Education How to access health informa tion online - Detail Indication:Diabetes mellitus type 2, uncontrolled, without complications Start:28-Jan-2019 Instruction Type:Patient Education Patient Instructions Indication:Diabetes mellitus type 2, uncontrolled, without complications Start:28-Jan-2019 Instruction Type:Provider Instructions for Treatment How to access health informa tion online Indication:BMI 29.0-29.9,adult Start:20-Aug-2018 Instruction Type:Patient Education How to access health informa tion online - Detail Indication:BMI 29.0-29.9,adult Start:20-Aug-2018 Instruction Type:Patient Education Patient Instructions Indication:BMI 29.0-29.9,adult Start:20-Aug-2018 Instruction Type:Provider Instructions for Treatment How to access health informa tion online Indication:Diabetes mellitus type 2, uncontrolled, without complications Start:02-Jul-2018 Instruction Type:Patient Education How to access health informa tion online - Detail Indication:Diabetes mellitus type 2, uncontrolled, without complications Start:02-Jul-2018 Instruction Type:Patient Education Patient Instructions Indication:Diabetes mellitus type 2, uncontrolled, without complications Start:02-Jul-2018 Instruction Type:Provider Instructions for Treatment Patient Instructions Indication:Low back pain, episodic Start:30-Apr-2018 Instruction Type:Provider Instructions for Treatment How to access health informa tion online Indication:Rash Start:26-Mar-2018 Instruction Type:Patient Education How to access health informa tion online - Detail Indication:Rash Start:26-Mar-2018 Instruction Type:Patient Education Patient Instructions Indication:Rash Start:26-Mar-2018 Instruction Type:Provider Instructions for Treatment How to access health informa tion online Indication:Nonsmoker Start:21-Mar-2018 Instruction Type:Patient Education How to access health informa tion online - Detail Indication:Nonsmoker Start:21-Mar-2018 Instruction Type:Patient Education Patient Instructions Indication:Nonsmoker Start:21-Mar-2018 Instruction Type:Provider Instructions for Treatment How to access health informa tion online Indication:Nonsmoker Start:05-Mar-2018 Instruction Type:Patient Education How to access health informa tion online - Detail Indication:Nonsmoker Start:05-Mar-2018 Instruction Type:Patient Education Patient Instructions Indication:Nonsmoker Start:05-Mar-2018 Instruction Type:Provider Instructions for Treatment How to access health informa tion online Indication:BMI 28.0-28.9,adult Start:09-Jan-2018 Instruction Type:Patient Education How to access health informa tion online - Detail Indication:BMI 28.0-28.9,adult Start:09-Jan-2018 Instruction Type:Patient Education Patient Instructions Indication:BMI 28.0-28.9,adult Start:09-Jan-2018 Instruction Type:Provider Instructions for Treatment How to access health informa tion online Indication:Diabetes mellitus type 2, uncontrolled, without complications Start:02-Dec-2017 Instruction Type:Patient Education How to access health informa tion online - Detail Indication:Diabetes mellitus type 2, uncontrolled, without complications Start:02-Dec-2017 Instruction Type:Patient Education Patient Instructions Indication:Diabetes mellitus type 2, uncontrolled, without complications Start:02-Dec-2017 Instruction Type:Provider Instructions for Treatment How to access health informa tion online Indication:Nonsmoker Start:05-Nov-2017 Instruction Type:Patient Education How to access health informa tion online - Detail Indication:Nonsmoker Start:05-Nov-2017 Instruction Type:Patient Education Patient Instructions Indication:Nonsmoker Start:05-Nov-2017 Instruction Type:Provider Instructions for Treatment Patient Instructions Indication:Chest congestion Start:20-Sep-2017 Instruction Type:Provider Instructions for Treatment How to access health informa tion online Indication:Chest congestion Start:20-Sep-2017 Instruction Type:Patient Education How to access health informa tion online - Detail Indication:Chest congestion Start:20-Sep-2017 Instruction Type:Patient Education Patient Instructions Indication:Chest congestion Start:20-Sep-2017 Instruction Type:Provider Instructions for Treatment How to access health informa tion online Indication:Nonsmoker Start:07-Aug-2017 Instruction Type:Patient Education How to access health informa tion online - Detail Indication:Nonsmoker Start:07-Aug-2017 Instruction Type:Patient Education Patient Instructions Indication:Nonsmoker Start:07-Aug-2017 Instruction Type:Provider Instructions for Treatment How to access health informa tion online Indication:Diabetes mellitus type 2, uncontrolled, without complications Start:31-Jul-2017 Instruction Type:Patient Education How to access health informa tion online - Detail Indication:Diabetes mellitus type 2, uncontrolled, without complications Start:31-Jul-2017 Instruction Type:Patient Education Patient Instructions Indication:Diabetes mellitus type 2, uncontrolled, without complications Start:31-Jul-2017 Instruction Type:Provider Instructions for Treatment How to access health informa tion online Indication:Anxiety Start:22-Apr-2017 Instruction Type:Patient Education How to access health informa tion online - Detail Indication:Anxiety Start:22-Apr-2017 Instruction Type:Patient Education Patient Instructions Indication:Anxiety Start:22-Apr-2017 Instruction Type:Provider Instructions for Treatment How to access health informa tion online Indication:Diabetes mellitus type 2, uncontrolled, without complications Start:22-Apr-2017 Instruction Type:Patient Education How to access health informa tion online - Detail Indication:Diabetes mellitus type 2, uncontrolled, without complications Start:22-Apr-2017 Instruction Type:Patient Education Patient Instructions Indication:Diabetes mellitus type 2, uncontrolled, without complications Start:22-Apr-2017 Instruction Type:Provider Instructions for Treatment How to access health informa tion online Indication:Flu-like symptoms Start:17-Aug-2016 Instruction Type:Patient Education How to access health informa tion online - Detail Indication:Flu-like symptoms Start:17-Aug-2016 Instruction Type:Patient Education Patient Instructions Indication:Flu-like symptoms Start:17-Aug-2016 Instruction Type:Provider Instructions for Treatment How to access health informa tion online - Detail Indication:Diabetes mellitus type 2, uncontrolled, without complications Start:15-Sep-2015 Instruction Type:Patient Education How to access health informa tion online Indication:Diabetes mellitus type 2, uncontrolled, without complications Start:15-Sep-2015 Instruction Type:Patient Education Patient Instructions Indication:Diabetes mellitus type 2, uncontrolled, without complications Start:15-Sep-2015 Instruction Type:Provider Instructions for Treatment Patient Instructions Indication:Hypercholesteremia Start:03-Aug-2015 Instruction Type:Provider Instructions for Treatment How to access health informa tion online Indication:Diabetes mellitus type 2, uncontrolled, without complications Start:01-Jul-2015 Instruction Type:Patient Education How to access health informa tion online - Detail Indication:Diabetes mellitus type 2, uncontrolled, without complications Start:01-Jul-2015 Instruction Type:Patient Education Patient Instructions Indication:Diabetes mellitus type 2, uncontrolled, without complications Start:01-Jul-2015 Instruction Type:Provider Instructions for Treatment Patient Instructions Indication:Anxiety Start:16-Feb-2015 Instruction Type:Provider Instructions for Treatment How to access health informa tion online Indication:Anxiety Start:16-Feb-2015 Instruction Type:Patient Education How to access health informa tion online - Detail Indication:Anxiety Start:16-Feb-2015 Instruction Type:Patient Education Patient Instructions Indication:Anxiety Start:06-Aug-2012 Instruction Type:Provider Instructions for Treatment Patient Instructions Indication:Benign paroxysmal positional vertigo Start:30-Jun-2012 Instruction Type:Provider Instructions for Treatment [facility]; [facility] Work Phone: Instructions* Name Dates Details Patient Instructions Indication:Nonsmoker Start:13-Mar-2023 Instruction Type:Provider Instructions for Treatment How to Access Health Informa tion Online using Patient Portal and [employer]rd [employer] Apps Indication:Nonsmoker Start:13-Mar-2023 Instruction Type:Patient Education Patient Instructions Indication:BMI 31.0-31.9,adult Start:23-Jan-2023 Instruction Type:Provider Instructions for Treatment How to Access Health Informa tion Online using Patient Portal and [employer]rd [employer] Apps Indication:BMI 31.0-31.9,adult Start:23-Jan-2023 Instruction Type:Patient Education Patient Instructions Indication:BMI 30.0-30.9,adult Start:25-Jul-2022 Instruction Type:Provider Instructions for Treatment How to Access Health Informa tion Online using Patient Portal and [employer]rd [employer] Apps Indication:BMI 30.0-30.9,adult Start:25-Jul-2022 Instruction Type:Patient Education Patient Instructions Indication:BMI 30.0-30.9,adult Start:08-Jan-2022 Instruction Type:Provider Instructions for Treatment How to Access Health Informa tion Online using Patient Portal and [employer]rd [employer] Apps Indication:BMI 30.0-30.9,adult Start:08-Jan-2022 Instruction Type:Patient Education Patient Instructions Indication:Nonsmoker Start:12-May-2021 Instruction Type:Provider Instructions for Treatment How to Access Health Informa tion Online using Patient Portal and [employer]rd [employer] Apps Indication:Nonsmoker Start:12-May-2021 Instruction Type:Patient Education How to Access Health Informa tion Online using Patient Portal and [employer]rd [employer] Apps Indication:Nonsmoker Start:20-Mar-2021 Instruction Type:Patient Education Patient Instructions Indication:Nonsmoker Start:20-Mar-2021 Instruction Type:Provider Instructions for Treatment How to access health informa tion online Indication:Nonsmoker Start:24-Aug-2020 Instruction Type:Patient Education How to access health informa tion online - Detail Indication:Nonsmoker Start:24-Aug-2020 Instruction Type:Patient Education Patient Instructions Indication:Nonsmoker Start:24-Aug-2020 Instruction Type:Provider Instructions for Treatment How to access health informa tion online Indication:Nonsmoker Start:28-Apr-2020 Instruction Type:Patient Education How to access health informa tion online - Detail Indication:Nonsmoker Start:28-Apr-2020 Instruction Type:Patient Education Patient Instructions Indication:Nonsmoker Start:28-Apr-2020 Instruction Type:Provider Instructions for Treatment How to access health informa tion online Indication:Nonsmoker Start:12-Feb-2020 Instruction Type:Patient Education How to access health informa tion online - Detail Indication:Nonsmoker Start:12-Feb-2020 Instruction Type:Patient Education Patient Instructions Indication:Nonsmoker Start:12-Feb-2020 Instruction Type:Provider Instructions for Treatment How to access health informa tion online Indication:BMI 28.0-28.9,adult Start:21-Jan-2020 Instruction Type:Patient Education How to access health informa tion online - Detail Indication:BMI 28.0-28.9,adult Start:21-Jan-2020 Instruction Type:Patient Education Patient Instructions Indication:BMI 28.0-28.9,adult Start:21-Jan-2020 Instruction Type:Provider Instructions for Treatment How to access health informa tion online Indication:Diabetes mellitus type 2, uncontrolled, without complications Start:06-May-2019 Instruction Type:Patient Education How to access health informa tion online - Detail Indication:Diabetes mellitus type 2, uncontrolled, without complications Start:06-May-2019 Instruction Type:Patient Education Patient Instructions Indication:Diabetes mellitus type 2, uncontrolled, without complications Start:06-May-2019 Instruction Type:Provider Instructions for Treatment How to access health informa tion online Indication:Diabetes mellitus type 2, uncontrolled, without complications Start:28-Jan-2019 Instruction Type:Patient Education How to access health informa tion online - Detail Indication:Diabetes mellitus type 2, uncontrolled, without complications Start:28-Jan-2019 Instruction Type:Patient Education Patient Instructions Indication:Diabetes mellitus type 2, uncontrolled, without complications Start:28-Jan-2019 Instruction Type:Provider Instructions for Treatment How to access health informa tion online Indication:BMI 29.0-29.9,adult Start:20-Aug-2018 Instruction Type:Patient Education How to access health informa tion online - Detail Indication:BMI 29.0-29.9,adult Start:20-Aug-2018 Instruction Type:Patient Education Patient Instructions Indication:BMI 29.0-29.9,adult Start:20-Aug-2018 Instruction Type:Provider Instructions for Treatment How to access health informa tion online Indication:Diabetes mellitus type 2, uncontrolled, without complications Start:02-Jul-2018 Instruction Type:Patient Education How to access health informa tion online - Detail Indication:Diabetes mellitus type 2, uncontrolled, without complications Start:02-Jul-2018 Instruction Type:Patient Education Patient Instructions Indication:Diabetes mellitus type 2, uncontrolled, without complications Start:02-Jul-2018 Instruction Type:Provider Instructions for Treatment Patient Instructions Indication:Low back pain, episodic Start:30-Apr-2018 Instruction Type:Provider Instructions for Treatment How to access health informa tion online Indication:Rash Start:26-Mar-2018 Instruction Type:Patient Education How to access health informa tion online - Detail Indication:Rash Start:26-Mar-2018 Instruction Type:Patient Education Patient Instructions Indication:Rash Start:26-Mar-2018 Instruction Type:Provider Instructions for Treatment How to access health informa tion online Indication:Nonsmoker Start:21-Mar-2018 Instruction Type:Patient Education How to access health informa tion online - Detail Indication:Nonsmoker Start:21-Mar-2018 Instruction Type:Patient Education Patient Instructions Indication:Nonsmoker Start:21-Mar-2018 Instruction Type:Provider Instructions for Treatment How to access health informa tion online Indication:Nonsmoker Start:05-Mar-2018 Instruction Type:Patient Education How to access health informa tion online - Detail Indication:Nonsmoker Start:05-Mar-2018 Instruction Type:Patient Education Patient Instructions Indication:Nonsmoker Start:05-Mar-2018 Instruction Type:Provider Instructions for Treatment How to access health informa tion online Indication:BMI 28.0-28.9,adult Start:09-Jan-2018 Instruction Type:Patient Education How to access health informa tion online - Detail Indication:BMI 28.0-28.9,adult Start:09-Jan-2018 Instruction Type:Patient Education Patient Instructions Indication:BMI 28.0-28.9,adult Start:09-Jan-2018 Instruction Type:Provider Instructions for Treatment How to access health informa tion online Indication:Diabetes mellitus type 2, uncontrolled, without complications Start:02-Dec-2017 Instruction Type:Patient Education How to access health informa tion online - Detail Indication:Diabetes mellitus type 2, uncontrolled, without complications Start:02-Dec-2017 Instruction Type:Patient Education Patient Instructions Indication:Diabetes mellitus type 2, uncontrolled, without complications Start:02-Dec-2017 Instruction Type:Provider Instructions for Treatment How to access health informa tion online Indication:Nonsmoker Start:05-Nov-2017 Instruction Type:Patient Education How to access health informa tion online - Detail Indication:Nonsmoker Start:05-Nov-2017 Instruction Type:Patient Education Patient Instructions Indication:Nonsmoker Start:05-Nov-2017 Instruction Type:Provider Instructions for Treatment Patient Instructions Indication:Chest congestion Start:20-Sep-2017 Instruction Type:Provider Instructions for Treatment How to access health informa tion online Indication:Chest congestion Start:20-Sep-2017 Instruction Type:Patient Education How to access health informa tion online - Detail Indication:Chest congestion Start:20-Sep-2017 Instruction Type:Patient Education Patient Instructions Indication:Chest congestion Start:20-Sep-2017 Instruction Type:Provider Instructions for Treatment How to access health informa tion online Indication:Nonsmoker Start:07-Aug-2017 Instruction Type:Patient Education How to access health informa tion online - Detail Indication:Nonsmoker Start:07-Aug-2017 Instruction Type:Patient Education Patient Instructions Indication:Nonsmoker Start:07-Aug-2017 Instruction Type:Provider Instructions for Treatment How to access health informa tion online Indication:Diabetes mellitus type 2, uncontrolled, without complications Start:31-Jul-2017 Instruction Type:Patient Education How to access health informa tion online - Detail Indication:Diabetes mellitus type 2, uncontrolled, without complications Start:31-Jul-2017 Instruction Type:Patient Education Patient Instructions Indication:Diabetes mellitus type 2, uncontrolled, without complications Start:31-Jul-2017 Instruction Type:Provider Instructions for Treatment How to access health informa tion online Indication:Anxiety Start:22-Apr-2017 Instruction Type:Patient Education How to access health informa tion online - Detail Indication:Anxiety Start:22-Apr-2017 Instruction Type:Patient Education Patient Instructions Indication:Anxiety Start:22-Apr-2017 Instruction Type:Provider Instructions for Treatment How to access health informa tion online Indication:Diabetes mellitus type 2, uncontrolled, without complications Start:22-Apr-2017 Instruction Type:Patient Education How to access health informa tion online - Detail Indication:Diabetes mellitus type 2, uncontrolled, without complications Start:22-Apr-2017 Instruction Type:Patient Education Patient Instructions Indication:Diabetes mellitus type 2, uncontrolled, without complications Start:22-Apr-2017 Instruction Type:Provider Instructions for Treatment How to access health informa tion online Indication:Flu-like symptoms Start:17-Aug-2016 Instruction Type:Patient Education How to access health informa tion online - Detail Indication:Flu-like symptoms Start:17-Aug-2016 Instruction Type:Patient Education Patient Instructions Indication:Flu-like symptoms Start:17-Aug-2016 Instruction Type:Provider Instructions for Treatment How to access health informa tion online - Detail Indication:Diabetes mellitus type 2, uncontrolled, without complications Start:15-Sep-2015 Instruction Type:Patient Education How to access health informa tion online Indication:Diabetes mellitus type 2, uncontrolled, without complications Start:15-Sep-2015 Instruction Type:Patient Education Patient Instructions Indication:Diabetes mellitus type 2, uncontrolled, without complications Start:15-Sep-2015 Instruction Type:Provider Instructions for Treatment Patient Instructions Indication:Hypercholesteremia Start:03-Aug-2015 Instruction Type:Provider Instructions for Treatment How to access health informa tion online Indication:Diabetes mellitus type 2, uncontrolled, without complications Start:01-Jul-2015 Instruction Type:Patient Education How to access health informa tion online - Detail Indication:Diabetes mellitus type 2, uncontrolled, without complications Start:01-Jul-2015 Instruction Type:Patient Education Patient Instructions Indication:Diabetes mellitus type 2, uncontrolled, without complications Start:01-Jul-2015 Instruction Type:Provider Instructions for Treatment Patient Instructions Indication:Anxiety Start:16-Feb-2015 Instruction Type:Provider Instructions for Treatment How to access health informa tion online Indication:Anxiety Start:16-Feb-2015 Instruction Type:Patient Education How to access health informa tion online - Detail Indication:Anxiety Start:16-Feb-2015 Instruction Type:Patient Education Patient Instructions Indication:Anxiety Start:06-Aug-2012 Instruction Type:Provider Instructions for Treatment Patient Instructions Indication:Benign paroxysmal positional vertigo Start:30-Jun-2012 Instruction Type:Provider Instructions for Treatment [facility]; [facility] Work Phone: Instructions* Name Dates Details How to Access Health Informa tion Online using Patient Portal and [employer]rd [employer] Apps Indication:Nonsmoker Start:10-Apr-2023 Instruction Type:Patient Education Patient Instructions Indication:Nonsmoker Start:10-Apr-2023 Instruction Type:Provider Instructions for Treatment Patient Instructions Indication:Nonsmoker Start:13-Mar-2023 Instruction Type:Provider Instructions for Treatment How to Access Health Informa tion Online using Patient Portal and [employer]rd [employer] Apps Indication:Nonsmoker Start:13-Mar-2023 Instruction Type:Patient Education Patient Instructions Indication:BMI 31.0-31.9,adult Start:23-Jan-2023 Instruction Type:Provider Instructions for Treatment How to Access Health Informa tion Online using Patient Portal and [employer]rd [employer] Apps Indication:BMI 31.0-31.9,adult Start:23-Jan-2023 Instruction Type:Patient Education Patient Instructions Indication:BMI 30.0-30.9,adult Start:25-Jul-2022 Instruction Type:Provider Instructions for Treatment How to Access Health Informa tion Online using Patient Portal and [employer]rd [employer] Apps Indication:BMI 30.0-30.9,adult Start:25-Jul-2022 Instruction Type:Patient Education Patient Instructions Indication:BMI 30.0-30.9,adult Start:08-Jan-2022 Instruction Type:Provider Instructions for Treatment How to Access Health Informa tion Online using Patient Portal and [employer]rd [employer] Apps Indication:BMI 30.0-30.9,adult Start:08-Jan-2022 Instruction Type:Patient Education Patient Instructions Indication:Nonsmoker Start:12-May-2021 Instruction Type:Provider Instructions for Treatment How to Access Health Informa tion Online using Patient Portal and [employer]rd [employer] Apps Indication:Nonsmoker Start:12-May-2021 Instruction Type:Patient Education How to Access Health Informa tion Online using Patient Portal and [employer]rd [employer] Apps Indication:Nonsmoker Start:20-Mar-2021 Instruction Type:Patient Education Patient Instructions Indication:Nonsmoker Start:20-Mar-2021 Instruction Type:Provider Instructions for Treatment How to access health informa tion online Indication:Nonsmoker Start:24-Aug-2020 Instruction Type:Patient Education How to access health informa tion online - Detail Indication:Nonsmoker Start:24-Aug-2020 Instruction Type:Patient Education Patient Instructions Indication:Nonsmoker Start:24-Aug-2020 Instruction Type:Provider Instructions for Treatment How to access health informa tion online Indication:Nonsmoker Start:28-Apr-2020 Instruction Type:Patient Education How to access health informa tion online - Detail Indication:Nonsmoker Start:28-Apr-2020 Instruction Type:Patient Education Patient Instructions Indication:Nonsmoker Start:28-Apr-2020 Instruction Type:Provider Instructions for Treatment How to access health informa tion online Indication:Nonsmoker Start:12-Feb-2020 Instruction Type:Patient Education How to access health informa tion online - Detail Indication:Nonsmoker Start:12-Feb-2020 Instruction Type:Patient Education Patient Instructions Indication:Nonsmoker Start:12-Feb-2020 Instruction Type:Provider Instructions for Treatment How to access health informa tion online Indication:BMI 28.0-28.9,adult Start:21-Jan-2020 Instruction Type:Patient Education How to access health informa tion online - Detail Indication:BMI 28.0-28.9,adult Start:21-Jan-2020 Instruction Type:Patient Education Patient Instructions Indication:BMI 28.0-28.9,adult Start:21-Jan-2020 Instruction Type:Provider Instructions for Treatment How to access health informa tion online Indication:Diabetes mellitus type 2, uncontrolled, without complications Start:06-May-2019 Instruction Type:Patient Education How to access health informa tion online - Detail Indication:Diabetes mellitus type 2, uncontrolled, without complications Start:06-May-2019 Instruction Type:Patient Education Patient Instructions Indication:Diabetes mellitus type 2, uncontrolled, without complications Start:06-May-2019 Instruction Type:Provider Instructions for Treatment How to access health informa tion online Indication:Diabetes mellitus type 2, uncontrolled, without complications Start:28-Jan-2019 Instruction Type:Patient Education How to access health informa tion online - Detail Indication:Diabetes mellitus type 2, uncontrolled, without complications Start:28-Jan-2019 Instruction Type:Patient Education Patient Instructions Indication:Diabetes mellitus type 2, uncontrolled, without complications Start:28-Jan-2019 Instruction Type:Provider Instructions for Treatment How to access health informa tion online Indication:BMI 29.0-29.9,adult Start:20-Aug-2018 Instruction Type:Patient Education How to access health informa tion online - Detail Indication:BMI 29.0-29.9,adult Start:20-Aug-2018 Instruction Type:Patient Education Patient Instructions Indication:BMI 29.0-29.9,adult Start:20-Aug-2018 Instruction Type:Provider Instructions for Treatment How to access health informa tion online Indication:Diabetes mellitus type 2, uncontrolled, without complications Start:02-Jul-2018 Instruction Type:Patient Education How to access health informa tion online - Detail Indication:Diabetes mellitus type 2, uncontrolled, without complications Start:02-Jul-2018 Instruction Type:Patient Education Patient Instructions Indication:Diabetes mellitus type 2, uncontrolled, without complications Start:02-Jul-2018 Instruction Type:Provider Instructions for Treatment Patient Instructions Indication:Low back pain, episodic Start:30-Apr-2018 Instruction Type:Provider Instructions for Treatment How to access health informa tion online Indication:Rash Start:26-Mar-2018 Instruction Type:Patient Education How to access health informa tion online - Detail Indication:Rash Start:26-Mar-2018 Instruction Type:Patient Education Patient Instructions Indication:Rash Start:26-Mar-2018 Instruction Type:Provider Instructions for Treatment How to access health informa tion online Indication:Nonsmoker Start:21-Mar-2018 Instruction Type:Patient Education How to access health informa tion online - Detail Indication:Nonsmoker Start:21-Mar-2018 Instruction Type:Patient Education Patient Instructions Indication:Nonsmoker Start:21-Mar-2018 Instruction Type:Provider Instructions for Treatment How to access health informa tion online Indication:Nonsmoker Start:05-Mar-2018 Instruction Type:Patient Education How to access health informa tion online - Detail Indication:Nonsmoker Start:05-Mar-2018 Instruction Type:Patient Education Patient Instructions Indication:Nonsmoker Start:05-Mar-2018 Instruction Type:Provider Instructions for Treatment How to access health informa tion online Indication:BMI 28.0-28.9,adult Start:09-Jan-2018 Instruction Type:Patient Education How to access health informa tion online - Detail Indication:BMI 28.0-28.9,adult Start:09-Jan-2018 Instruction Type:Patient Education Patient Instructions Indication:BMI 28.0-28.9,adult Start:09-Jan-2018 Instruction Type:Provider Instructions for Treatment How to access health informa tion online Indication:Diabetes mellitus type 2, uncontrolled, without complications Start:02-Dec-2017 Instruction Type:Patient Education How to access health informa tion online - Detail Indication:Diabetes mellitus type 2, uncontrolled, without complications Start:02-Dec-2017 Instruction Type:Patient Education Patient Instructions Indication:Diabetes mellitus type 2, uncontrolled, without complications Start:02-Dec-2017 Instruction Type:Provider Instructions for Treatment How to access health informa tion online Indication:Nonsmoker Start:05-Nov-2017 Instruction Type:Patient Education How to access health informa tion online - Detail Indication:Nonsmoker Start:05-Nov-2017 Instruction Type:Patient Education Patient Instructions Indication:Nonsmoker Start:05-Nov-2017 Instruction Type:Provider Instructions for Treatment Patient Instructions Indication:Chest congestion Start:20-Sep-2017 Instruction Type:Provider Instructions for Treatment How to access health informa tion online Indication:Chest congestion Start:20-Sep-2017 Instruction Type:Patient Education How to access health informa tion online - Detail Indication:Chest congestion Start:20-Sep-2017 Instruction Type:Patient Education Patient Instructions Indication:Chest congestion Start:20-Sep-2017 Instruction Type:Provider Instructions for Treatment How to access health informa tion online Indication:Nonsmoker Start:07-Aug-2017 Instruction Type:Patient Education How to access health informa tion online - Detail Indication:Nonsmoker Start:07-Aug-2017 Instruction Type:Patient Education Patient Instructions Indication:Nonsmoker Start:07-Aug-2017 Instruction Type:Provider Instructions for Treatment How to access health informa tion online Indication:Diabetes mellitus type 2, uncontrolled, without complications Start:31-Jul-2017 Instruction Type:Patient Education How to access health informa tion online - Detail Indication:Diabetes mellitus type 2, uncontrolled, without complications Start:31-Jul-2017 Instruction Type:Patient Education Patient Instructions Indication:Diabetes mellitus type 2, uncontrolled, without complications Start:31-Jul-2017 Instruction Type:Provider Instructions for Treatment How to access health informa tion online Indication:Anxiety Start:22-Apr-2017 Instruction Type:Patient Education How to access health informa tion online - Detail Indication:Anxiety Start:22-Apr-2017 Instruction Type:Patient Education Patient Instructions Indication:Anxiety Start:22-Apr-2017 Instruction Type:Provider Instructions for Treatment How to access health informa tion online Indication:Diabetes mellitus type 2, uncontrolled, without complications Start:22-Apr-2017 Instruction Type:Patient Education How to access health informa tion online - Detail Indication:Diabetes mellitus type 2, uncontrolled, without complications Start:22-Apr-2017 Instruction Type:Patient Education Patient Instructions Indication:Diabetes mellitus type 2, uncontrolled, without complications Start:22-Apr-2017 Instruction Type:Provider Instructions for Treatment How to access health informa tion online Indication:Flu-like symptoms Start:17-Aug-2016 Instruction Type:Patient Education How to access health informa tion online - Detail Indication:Flu-like symptoms Start:17-Aug-2016 Instruction Type:Patient Education Patient Instructions Indication:Flu-like symptoms Start:17-Aug-2016 Instruction Type:Provider Instructions for Treatment How to access health informa tion online - Detail Indication:Diabetes mellitus type 2, uncontrolled, without complications Start:15-Sep-2015 Instruction Type:Patient Education How to access health informa tion online Indication:Diabetes mellitus type 2, uncontrolled, without complications Start:15-Sep-2015 Instruction Type:Patient Education Patient Instructions Indication:Diabetes mellitus type 2, uncontrolled, without complications Start:15-Sep-2015 Instruction Type:Provider Instructions for Treatment Patient Instructions Indication:Hypercholesteremia Start:03-Aug-2015 Instruction Type:Provider Instructions for Treatment How to access health informa tion online Indication:Diabetes mellitus type 2, uncontrolled, without complications Start:01-Jul-2015 Instruction Type:Patient Education How to access health informa tion online - Detail Indication:Diabetes mellitus type 2, uncontrolled, without complications Start:01-Jul-2015 Instruction Type:Patient Education Patient Instructions Indication:Diabetes mellitus type 2, uncontrolled, without complications Start:01-Jul-2015 Instruction Type:Provider Instructions for Treatment Patient Instructions Indication:Anxiety Start:16-Feb-2015 Instruction Type:Provider Instructions for Treatment How to access health informa tion online Indication:Anxiety Start:16-Feb-2015 Instruction Type:Patient Education How to access health informa tion online - Detail Indication:Anxiety Start:16-Feb-2015 Instruction Type:Patient Education Patient Instructions Indication:Anxiety Start:06-Aug-2012 Instruction Type:Provider Instructions for Treatment Patient Instructions Indication:Benign paroxysmal positional vertigo Start:30-Jun-2012 Instruction Type:Provider Instructions for Treatment [facility]; [facility] Work Phone: Instructions* Name Dates Details How to Access Health Informa tion Online using Patient Portal and [employer] Apps Indication:Nonsmoker Start:10-Apr-2023 Instruction Type:Patient Education Patient Instructions Indication:Nonsmoker Start:10-Apr-2023 Instruction Type:Provider Instructions for Treatment Patient Instructions Indication:Nonsmoker Start:13-Mar-2023 Instruction Type:Provider Instructions for Treatment How to Access Health Informa tion Online using Patient Portal and [employer] Apps Indication:Nonsmoker Start:13-Mar-2023 Instruction Type:Patient Education Patient Instructions Indication:BMI 31.0-31.9,adult Start:23-Jan-2023 Instruction Type:Provider Instructions for Treatment How to Access Health Informa tion Online using Patient Portal and [employer] Apps Indication:BMI 31.0-31.9,adult Start:23-Jan-2023 Instruction Type:Patient Education Patient Instructions Indication:BMI 30.0-30.9,adult Start:25-Jul-2022 Instruction Type:Provider Instructions for Treatment How to Access Health Informa tion Online using Patient Portal and [employer] Apps Indication:BMI 30.0-30.9,adult Start:25-Jul-2022 Instruction Type:Patient Education Patient Instructions Indication:BMI 30.0-30.9,adult Start:08-Jan-2022 Instruction Type:Provider Instructions for Treatment How to Access Health Informa tion Online using Patient Portal and [employer] Apps Indication:BMI 30.0-30.9,adult Start:08-Jan-2022 Instruction Type:Patient Education Patient Instructions Indication:Nonsmoker Start:12-May-2021 Instruction Type:Provider Instructions for Treatment How to Access Health Informa tion Online using Patient Portal and [employer] Apps Indication:Nonsmoker Start:12-May-2021 Instruction Type:Patient Education How to Access Health Informa tion Online using Patient Portal and [employer] Apps Indication:Nonsmoker Start:20-Mar-2021 Instruction Type:Patient Education Patient Instructions Indication:Nonsmoker Start:20-Mar-2021 Instruction Type:Provider Instructions for Treatment How to access health informa tion online Indication:Nonsmoker Start:24-Aug-2020 Instruction Type:Patient Education How to access health informa tion online - Detail Indication:Nonsmoker Start:24-Aug-2020 Instruction Type:Patient Education Patient Instructions Indication:Nonsmoker Start:24-Aug-2020 Instruction Type:Provider Instructions for Treatment How to access health informa tion online Indication:Nonsmoker Start:28-Apr-2020 Instruction Type:Patient Education How to access health informa tion online - Detail Indication:Nonsmoker Start:28-Apr-2020 Instruction Type:Patient Education Patient Instructions Indication:Nonsmoker Start:28-Apr-2020 Instruction Type:Provider Instructions for Treatment How to access health informa tion online Indication:Nonsmoker Start:12-Feb-2020 Instruction Type:Patient Education How to access health informa tion online - Detail Indication:Nonsmoker Start:12-Feb-2020 Instruction Type:Patient Education Patient Instructions Indication:Nonsmoker Start:12-Feb-2020 Instruction Type:Provider Instructions for Treatment How to access health informa tion online Indication:BMI 28.0-28.9,adult Start:21-Jan-2020 Instruction Type:Patient Education How to access health informa tion online - Detail Indication:BMI 28.0-28.9,adult Start:21-Jan-2020 Instruction Type:Patient Education Patient Instructions Indication:BMI 28.0-28.9,adult Start:21-Jan-2020 Instruction Type:Provider Instructions for Treatment How to access health informa tion online Indication:Diabetes mellitus type 2, uncontrolled, without complications Start:06-May-2019 Instruction Type:Patient Education How to access health informa tion online - Detail Indication:Diabetes mellitus type 2, uncontrolled, without complications Start:06-May-2019 Instruction Type:Patient Education Patient Instructions Indication:Diabetes mellitus type 2, uncontrolled, without complications Start:06-May-2019 Instruction Type:Provider Instructions for Treatment How to access health informa tion online Indication:Diabetes mellitus type 2, uncontrolled, without complications Start:28-Jan-2019 Instruction Type:Patient Education How to access health informa tion online - Detail Indication:Diabetes mellitus type 2, uncontrolled, without complications Start:28-Jan-2019 Instruction Type:Patient Education Patient Instructions Indication:Diabetes mellitus type 2, uncontrolled, without complications Start:28-Jan-2019 Instruction Type:Provider Instructions for Treatment How to access health informa tion online Indication:BMI 29.0-29.9,adult Start:20-Aug-2018 Instruction Type:Patient Education How to access health informa tion online - Detail Indication:BMI 29.0-29.9,adult Start:20-Aug-2018 Instruction Type:Patient Education Patient Instructions Indication:BMI 29.0-29.9,adult Start:20-Aug-2018 Instruction Type:Provider Instructions for Treatment How to access health informa tion online Indication:Diabetes mellitus type 2, uncontrolled, without complications Start:02-Jul-2018 Instruction Type:Patient Education How to access health informa tion online - Detail Indication:Diabetes mellitus type 2, uncontrolled, without complications Start:02-Jul-2018 Instruction Type:Patient Education Patient Instructions Indication:Diabetes mellitus type 2, uncontrolled, without complications Start:02-Jul-2018 Instruction Type:Provider Instructions for Treatment Patient Instructions Indication:Low back pain, episodic Start:30-Apr-2018 Instruction Type:Provider Instructions for Treatment How to access health informa tion online Indication:Rash Start:26-Mar-2018 Instruction Type:Patient Education How to access health informa tion online - Detail Indication:Rash Start:26-Mar-2018 Instruction Type:Patient Education Patient Instructions Indication:Rash Start:26-Mar-2018 Instruction Type:Provider Instructions for Treatment How to access health informa tion online Indication:Nonsmoker Start:21-Mar-2018 Instruction Type:Patient Education How to access health informa tion online - Detail Indication:Nonsmoker Start:21-Mar-2018 Instruction Type:Patient Education Patient Instructions Indication:Nonsmoker Start:21-Mar-2018 Instruction Type:Provider Instructions for Treatment How to access health informa tion online Indication:Nonsmoker Start:05-Mar-2018 Instruction Type:Patient Education How to access health informa tion online - Detail Indication:Nonsmoker Start:05-Mar-2018 Instruction Type:Patient Education Patient Instructions Indication:Nonsmoker Start:05-Mar-2018 Instruction Type:Provider Instructions for Treatment How to access health informa tion online Indication:BMI 28.0-28.9,adult Start:09-Jan-2018 Instruction Type:Patient Education How to access health informa tion online - Detail Indication:BMI 28.0-28.9,adult Start:09-Jan-2018 Instruction Type:Patient Education Patient Instructions Indication:BMI 28.0-28.9,adult Start:09-Jan-2018 Instruction Type:Provider Instructions for Treatment How to access health informa tion online Indication:Diabetes mellitus type 2, uncontrolled, without complications Start:02-Dec-2017 Instruction Type:Patient Education How to access health informa tion online - Detail Indication:Diabetes mellitus type 2, uncontrolled, without complications Start:02-Dec-2017 Instruction Type:Patient Education Patient Instructions Indication:Diabetes mellitus type 2, uncontrolled, without complications Start:02-Dec-2017 Instruction Type:Provider Instructions for Treatment How to access health informa tion online Indication:Nonsmoker Start:05-Nov-2017 Instruction Type:Patient Education How to access health informa tion online - Detail Indication:Nonsmoker Start:05-Nov-2017 Instruction Type:Patient Education Patient Instructions Indication:Nonsmoker Start:05-Nov-2017 Instruction Type:Provider Instructions for Treatment Patient Instructions Indication:Chest congestion Start:20-Sep-2017 Instruction Type:Provider Instructions for Treatment How to access health informa tion online Indication:Chest congestion Start:20-Sep-2017 Instruction Type:Patient Education How to access health informa tion online - Detail Indication:Chest congestion Start:20-Sep-2017 Instruction Type:Patient Education Patient Instructions Indication:Chest congestion Start:20-Sep-2017 Instruction Type:Provider Instructions for Treatment How to access health informa tion online Indication:Nonsmoker Start:07-Aug-2017 Instruction Type:Patient Education How to access health informa tion online - Detail Indication:Nonsmoker Start:07-Aug-2017 Instruction Type:Patient Education Patient Instructions Indication:Nonsmoker Start:07-Aug-2017 Instruction Type:Provider Instructions for Treatment How to access health informa tion online Indication:Diabetes mellitus type 2, uncontrolled, without complications Start:31-Jul-2017 Instruction Type:Patient Education How to access health informa tion online - Detail Indication:Diabetes mellitus type 2, uncontrolled, without complications Start:31-Jul-2017 Instruction Type:Patient Education Patient Instructions Indication:Diabetes mellitus type 2, uncontrolled, without complications Start:31-Jul-2017 Instruction Type:Provider Instructions for Treatment How to access health informa tion online Indication:Anxiety Start:22-Apr-2017 Instruction Type:Patient Education How to access health informa tion online - Detail Indication:Anxiety Start:22-Apr-2017 Instruction Type:Patient Education Patient Instructions Indication:Anxiety Start:22-Apr-2017 Instruction Type:Provider Instructions for Treatment How to access health informa tion online Indication:Diabetes mellitus type 2, uncontrolled, without complications Start:22-Apr-2017 Instruction Type:Patient Education How to access health informa tion online - Detail Indication:Diabetes mellitus type 2, uncontrolled, without complications Start:22-Apr-2017 Instruction Type:Patient Education Patient Instructions Indication:Diabetes mellitus type 2, uncontrolled, without complications Start:22-Apr-2017 Instruction Type:Provider Instructions for Treatment How to access health informa tion online Indication:Flu-like symptoms Start:17-Aug-2016 Instruction Type:Patient Education How to access health informa tion online - Detail Indication:Flu-like symptoms Start:17-Aug-2016 Instruction Type:Patient Education Patient Instructions Indication:Flu-like symptoms Start:17-Aug-2016 Instruction Type:Provider Instructions for Treatment How to access health informa tion online - Detail Indication:Diabetes mellitus type 2, uncontrolled, without complications Start:15-Sep-2015 Instruction Type:Patient Education How to access health informa tion online Indication:Diabetes mellitus type 2, uncontrolled, without complications Start:15-Sep-2015 Instruction Type:Patient Education Patient Instructions Indication:Diabetes mellitus type 2, uncontrolled, without complications Start:15-Sep-2015 Instruction Type:Provider Instructions for Treatment Patient Instructions Indication:Hypercholesteremia Start:03-Aug-2015 Instruction Type:Provider Instructions for Treatment How to access health informa tion online Indication:Diabetes mellitus type 2, uncontrolled, without complications Start:01-Jul-2015 Instruction Type:Patient Education How to access health informa tion online - Detail Indication:Diabetes mellitus type 2, uncontrolled, without complications Start:01-Jul-2015 Instruction Type:Patient Education Patient Instructions Indication:Diabetes mellitus type 2, uncontrolled, without complications Start:01-Jul-2015 Instruction Type:Provider Instructions for Treatment Patient Instructions Indication:Anxiety Start:16-Feb-2015 Instruction Type:Provider Instructions for Treatment How to access health informa tion online Indication:Anxiety Start:16-Feb-2015 Instruction Type:Patient Education How to access health informa tion online - Detail Indication:Anxiety Start:16-Feb-2015 Instruction Type:Patient Education Patient Instructions Indication:Anxiety Start:06-Aug-2012 Instruction Type:Provider Instructions for Treatment Patient Instructions Indication:Benign paroxysmal positional vertigo Start:30-Jun-2012 Instruction Type:Provider Instructions for Treatment [facility]; [facility] Work Phone: Instructions* Name Dates Details How to Access Health Informa tion Online using Patient Portal and [employer] Apps Indication:Nonsmoker Start:10-Apr-2023 Instruction Type:Patient Education Patient Instructions Indication:Nonsmoker Start:10-Apr-2023 Instruction Type:Provider Instructions for Treatment Patient Instructions Indication:Nonsmoker Start:13-Mar-2023 Instruction Type:Provider Instructions for Treatment How to Access Health Informa tion Online using Patient Portal and [employer] Apps Indication:Nonsmoker Start:13-Mar-2023 Instruction Type:Patient Education Patient Instructions Indication:BMI 31.0-31.9,adult Start:23-Jan-2023 Instruction Type:Provider Instructions for Treatment How to Access Health Informa tion Online using Patient Portal and [employer] Apps Indication:BMI 31.0-31.9,adult Start:23-Jan-2023 Instruction Type:Patient Education Patient Instructions Indication:BMI 30.0-30.9,adult Start:25-Jul-2022 Instruction Type:Provider Instructions for Treatment How to Access Health Informa tion Online using Patient Portal and [employer] Apps Indication:BMI 30.0-30.9,adult Start:25-Jul-2022 Instruction Type:Patient Education Patient Instructions Indication:BMI 30.0-30.9,adult Start:08-Jan-2022 Instruction Type:Provider Instructions for Treatment How to Access Health Informa tion Online using Patient Portal and [employer] Apps Indication:BMI 30.0-30.9,adult Start:08-Jan-2022 Instruction Type:Patient Education Patient Instructions Indication:Nonsmoker Start:12-May-2021 Instruction Type:Provider Instructions for Treatment How to Access Health Informa tion Online using Patient Portal and [employer] Apps Indication:Nonsmoker Start:12-May-2021 Instruction Type:Patient Education How to Access Health Informa tion Online using Patient Portal and [employer] Apps Indication:Nonsmoker Start:20-Mar-2021 Instruction Type:Patient Education Patient Instructions Indication:Nonsmoker Start:20-Mar-2021 Instruction Type:Provider Instructions for Treatment How to access health informa tion online Indication:Nonsmoker Start:24-Aug-2020 Instruction Type:Patient Education How to access health informa tion online - Detail Indication:Nonsmoker Start:24-Aug-2020 Instruction Type:Patient Education Patient Instructions Indication:Nonsmoker Start:24-Aug-2020 Instruction Type:Provider Instructions for Treatment How to access health informa tion online Indication:Nonsmoker Start:28-Apr-2020 Instruction Type:Patient Education How to access health informa tion online - Detail Indication:Nonsmoker Start:28-Apr-2020 Instruction Type:Patient Education Patient Instructions Indication:Nonsmoker Start:28-Apr-2020 Instruction Type:Provider Instructions for Treatment How to access health informa tion online Indication:Nonsmoker Start:12-Feb-2020 Instruction Type:Patient Education How to access health informa tion online - Detail Indication:Nonsmoker Start:12-Feb-2020 Instruction Type:Patient Education Patient Instructions Indication:Nonsmoker Start:12-Feb-2020 Instruction Type:Provider Instructions for Treatment How to access health informa tion online Indication:BMI 28.0-28.9,adult Start:21-Jan-2020 Instruction Type:Patient Education How to access health informa tion online - Detail Indication:BMI 28.0-28.9,adult Start:21-Jan-2020 Instruction Type:Patient Education Patient Instructions Indication:BMI 28.0-28.9,adult Start:21-Jan-2020 Instruction Type:Provider Instructions for Treatment How to access health informa tion online Indication:Diabetes mellitus type 2, uncontrolled, without complications Start:06-May-2019 Instruction Type:Patient Education How to access health informa tion online - Detail Indication:Diabetes mellitus type 2, uncontrolled, without complications Start:06-May-2019 Instruction Type:Patient Education Patient Instructions Indication:Diabetes mellitus type 2, uncontrolled, without complications Start:06-May-2019 Instruction Type:Provider Instructions for Treatment How to access health informa tion online Indication:Diabetes mellitus type 2, uncontrolled, without complications Start:28-Jan-2019 Instruction Type:Patient Education How to access health informa tion online - Detail Indication:Diabetes mellitus type 2, uncontrolled, without complications Start:28-Jan-2019 Instruction Type:Patient Education Patient Instructions Indication:Diabetes mellitus type 2, uncontrolled, without complications Start:28-Jan-2019 Instruction Type:Provider Instructions for Treatment How to access health informa tion online Indication:BMI 29.0-29.9,adult Start:20-Aug-2018 Instruction Type:Patient Education How to access health informa tion online - Detail Indication:BMI 29.0-29.9,adult Start:20-Aug-2018 Instruction Type:Patient Education Patient Instructions Indication:BMI 29.0-29.9,adult Start:20-Aug-2018 Instruction Type:Provider Instructions for Treatment How to access health informa tion online Indication:Diabetes mellitus type 2, uncontrolled, without complications Start:02-Jul-2018 Instruction Type:Patient Education How to access health informa tion online - Detail Indication:Diabetes mellitus type 2, uncontrolled, without complications Start:02-Jul-2018 Instruction Type:Patient Education Patient Instructions Indication:Diabetes mellitus type 2, uncontrolled, without complications Start:02-Jul-2018 Instruction Type:Provider Instructions for Treatment Patient Instructions Indication:Low back pain, episodic Start:30-Apr-2018 Instruction Type:Provider Instructions for Treatment How to access health informa tion online Indication:Rash Start:26-Mar-2018 Instruction Type:Patient Education How to access health informa tion online - Detail Indication:Rash Start:26-Mar-2018 Instruction Type:Patient Education Patient Instructions Indication:Rash Start:26-Mar-2018 Instruction Type:Provider Instructions for Treatment How to access health informa tion online Indication:Nonsmoker Start:21-Mar-2018 Instruction Type:Patient Education How to access health informa tion online - Detail Indication:Nonsmoker Start:21-Mar-2018 Instruction Type:Patient Education Patient Instructions Indication:Nonsmoker Start:21-Mar-2018 Instruction Type:Provider Instructions for Treatment How to access health informa tion online Indication:Nonsmoker Start:05-Mar-2018 Instruction Type:Patient Education How to access health informa tion online - Detail Indication:Nonsmoker Start:05-Mar-2018 Instruction Type:Patient Education Patient Instructions Indication:Nonsmoker Start:05-Mar-2018 Instruction Type:Provider Instructions for Treatment How to access health informa tion online Indication:BMI 28.0-28.9,adult Start:09-Jan-2018 Instruction Type:Patient Education How to access health informa tion online - Detail Indication:BMI 28.0-28.9,adult Start:09-Jan-2018 Instruction Type:Patient Education Patient Instructions Indication:BMI 28.0-28.9,adult Start:09-Jan-2018 Instruction Type:Provider Instructions for Treatment How to access health informa tion online Indication:Diabetes mellitus type 2, uncontrolled, without complications Start:02-Dec-2017 Instruction Type:Patient Education How to access health informa tion online - Detail Indication:Diabetes mellitus type 2, uncontrolled, without complications Start:02-Dec-2017 Instruction Type:Patient Education Patient Instructions Indication:Diabetes mellitus type 2, uncontrolled, without complications Start:02-Dec-2017 Instruction Type:Provider Instructions for Treatment How to access health informa tion online Indication:Nonsmoker Start:05-Nov-2017 Instruction Type:Patient Education How to access health informa tion online - Detail Indication:Nonsmoker Start:05-Nov-2017 Instruction Type:Patient Education Patient Instructions Indication:Nonsmoker Start:05-Nov-2017 Instruction Type:Provider Instructions for Treatment Patient Instructions Indication:Chest congestion Start:20-Sep-2017 Instruction Type:Provider Instructions for Treatment How to access health informa tion online Indication:Chest congestion Start:20-Sep-2017 Instruction Type:Patient Education How to access health informa tion online - Detail Indication:Chest congestion Start:20-Sep-2017 Instruction Type:Patient Education Patient Instructions Indication:Chest congestion Start:20-Sep-2017 Instruction Type:Provider Instructions for Treatment How to access health informa tion online Indication:Nonsmoker Start:07-Aug-2017 Instruction Type:Patient Education How to access health informa tion online - Detail Indication:Nonsmoker Start:07-Aug-2017 Instruction Type:Patient Education Patient Instructions Indication:Nonsmoker Start:07-Aug-2017 Instruction Type:Provider Instructions for Treatment How to access health informa tion online Indication:Diabetes mellitus type 2, uncontrolled, without complications Start:31-Jul-2017 Instruction Type:Patient Education How to access health informa tion online - Detail Indication:Diabetes mellitus type 2, uncontrolled, without complications Start:31-Jul-2017 Instruction Type:Patient Education Patient Instructions Indication:Diabetes mellitus type 2, uncontrolled, without complications Start:31-Jul-2017 Instruction Type:Provider Instructions for Treatment How to access health informa tion online Indication:Anxiety Start:22-Apr-2017 Instruction Type:Patient Education How to access health informa tion online - Detail Indication:Anxiety Start:22-Apr-2017 Instruction Type:Patient Education Patient Instructions Indication:Anxiety Start:22-Apr-2017 Instruction Type:Provider Instructions for Treatment How to access health informa tion online Indication:Diabetes mellitus type 2, uncontrolled, without complications Start:22-Apr-2017 Instruction Type:Patient Education How to access health informa tion online - Detail Indication:Diabetes mellitus type 2, uncontrolled, without complications Start:22-Apr-2017 Instruction Type:Patient Education Patient Instructions Indication:Diabetes mellitus type 2, uncontrolled, without complications Start:22-Apr-2017 Instruction Type:Provider Instructions for Treatment How to access health informa tion online Indication:Flu-like symptoms Start:17-Aug-2016 Instruction Type:Patient Education How to access health informa tion online - Detail Indication:Flu-like symptoms Start:17-Aug-2016 Instruction Type:Patient Education Patient Instructions Indication:Flu-like symptoms Start:17-Aug-2016 Instruction Type:Provider Instructions for Treatment How to access health informa tion online - Detail Indication:Diabetes mellitus type 2, uncontrolled, without complications Start:15-Sep-2015 Instruction Type:Patient Education How to access health informa tion online Indication:Diabetes mellitus type 2, uncontrolled, without complications Start:15-Sep-2015 Instruction Type:Patient Education Patient Instructions Indication:Diabetes mellitus type 2, uncontrolled, without complications Start:15-Sep-2015 Instruction Type:Provider Instructions for Treatment Patient Instructions Indication:Hypercholesteremia Start:03-Aug-2015 Instruction Type:Provider Instructions for Treatment How to access health informa tion online Indication:Diabetes mellitus type 2, uncontrolled, without complications Start:01-Jul-2015 Instruction Type:Patient Education How to access health informa tion online - Detail Indication:Diabetes mellitus type 2, uncontrolled, without complications Start:01-Jul-2015 Instruction Type:Patient Education Patient Instructions Indication:Diabetes mellitus type 2, uncontrolled, without complications Start:01-Jul-2015 Instruction Type:Provider Instructions for Treatment Patient Instructions Indication:Anxiety Start:16-Feb-2015 Instruction Type:Provider Instructions for Treatment How to access health informa tion online Indication:Anxiety Start:16-Feb-2015 Instruction Type:Patient Education How to access health informa tion online - Detail Indication:Anxiety Start:16-Feb-2015 Instruction Type:Patient Education Patient Instructions Indication:Anxiety Start:06-Aug-2012 Instruction Type:Provider Instructions for Treatment Patient Instructions Indication:Benign paroxysmal positional vertigo Start:30-Jun-2012 Instruction Type:Provider Instructions for Treatment [facility] Work Phone: reason for referral (narrative)No [facility] for [facility]: Instructions Name Dates Details Diabetes mellitus type 2, un controlled, without complications : How to access health information online Indication:Diabetes mellitus type 2, uncontrolled, without complications Diabetes mellitus type 2, un controlled, without complications : How to access health information online - Detail Indication:Diabetes mellitus type 2, uncontrolled, without complications Diabetes mellitus type 2, un controlled, without complications : Patient Instructions Indication:Diabetes mellitus type 2, uncontrolled, without complications Low back pain, episodic : Pa tient Instructions Indication:Low back pain, episodic Rash : How to access health information online Indication:Rash Rash : How to access health information online - Detail Indication:Rash Rash : Patient Instructions Indication:Rash Nonsmoker : How to access he alth information online Indication:Nonsmoker Nonsmoker : How to access he alth information online - Detail Indication:Nonsmoker Nonsmoker : Patient Instruct ions Indication:Nonsmoker BMI 28.0-28.9,adult : How to access health information online Indication:BMI 28.0-28.9,adult BMI 28.0-28.9,adult : How to access health information online - Detail Indication:BMI 28.0-28.9,adult BMI 28.0-28.9,adult : Patien t Instructions Indication:BMI 28.0-28.9,adult Chest congestion : Patient I nstructions Indication:Chest congestion Chest congestion : How to ac cess health information online Indication:Chest congestion Chest congestion : How to ac cess health information online - Detail Indication:Chest congestion Anxiety : How to access heal th information online Indication:Anxiety Anxiety : How to access heal th information online - Detail Indication:Anxiety Anxiety : Patient Instructio ns Indication:Anxiety Flu-like symptoms : How to a ccess health information online Indication:Flu-like symptoms Flu-like symptoms : How to a ccess health information online - Detail Indication:Flu-like symptoms Flu-like symptoms : Patient Instructions Indication:Flu-like symptoms Hypercholesteremia : Patient Instructions Indication:Hypercholesteremia Benign paroxysmal positional vertigo : Patient Instructions Indication:Benign paroxysmal positional vertigo Name Dates Details How to access health informa tion online Indication:Nonsmoker Start:28-Apr-2020 Instruction Type:Patient Education How to access health informa tion online - Detail Indication:Nonsmoker Start:28-Apr-2020 Instruction Type:Patient Education Patient Instructions Indication:Nonsmoker Start:28-Apr-2020 Instruction Type:Provider Instructions for Treatment How to access health informa tion online Indication:Nonsmoker Start:12-Feb-2020 Instruction Type:Patient Education How to access health informa tion online - Detail Indication:Nonsmoker Start:12-Feb-2020 Instruction Type:Patient Education Patient Instructions Indication:Nonsmoker Start:12-Feb-2020 Instruction Type:Provider Instructions for Treatment How to access health informa tion online Indication:BMI 28.0-28.9,adult Start:21-Jan-2020 Instruction Type:Patient Education How to access health informa tion online - Detail Indication:BMI 28.0-28.9,adult Start:21-Jan-2020 Instruction Type:Patient Education Patient Instructions Indication:BMI 28.0-28.9,adult Start:21-Jan-2020 Instruction Type:Provider Instructions for Treatment How to access health informa tion online Indication:Diabetes mellitus type 2, uncontrolled, without complications Start:06-May-2019 Instruction Type:Patient Education How to access health informa tion online - Detail Indication:Diabetes mellitus type 2, uncontrolled, without complications Start:06-May-2019 Instruction Type:Patient Education Patient Instructions Indication:Diabetes mellitus type 2, uncontrolled, without complications Start:06-May-2019 Instruction Type:Provider Instructions for Treatment How to access health informa tion online Indication:Diabetes mellitus type 2, uncontrolled, without complications Start:28-Jan-2019 Instruction Type:Patient Education How to access health informa tion online - Detail Indication:Diabetes mellitus type 2, uncontrolled, without complications Start:28-Jan-2019 Instruction Type:Patient Education Patient Instructions Indication:Diabetes mellitus type 2, uncontrolled, without complications Start:28-Jan-2019 Instruction Type:Provider Instructions for Treatment How to access health informa tion online Indication:BMI 29.0-29.9,adult Start:20-Aug-2018 Instruction Type:Patient Education How to access health informa tion online - Detail Indication:BMI 29.0-29.9,adult Start:20-Aug-2018 Instruction Type:Patient Education Patient Instructions Indication:BMI 29.0-29.9,adult Start:20-Aug-2018 Instruction Type:Provider Instructions for Treatment How to access health informa tion online Indication:Diabetes mellitus type 2, uncontrolled, without complications Start:02-Jul-2018 Instruction Type:Patient Education How to access health informa tion online - Detail Indication:Diabetes mellitus type 2, uncontrolled, without complications Start:02-Jul-2018 Instruction Type:Patient Education Patient Instructions Indication:Diabetes mellitus type 2, uncontrolled, without complications Start:02-Jul-2018 Instruction Type:Provider Instructions for Treatment Patient Instructions Indication:Low back pain, episodic Start:30-Apr-2018 Instruction Type:Provider Instructions for Treatment How to access health informa tion online Indication:Rash Start:26-Mar-2018 Instruction Type:Patient Education How to access health informa tion online - Detail Indication:Rash Start:26-Mar-2018 Instruction Type:Patient Education Patient Instructions Indication:Rash Start:26-Mar-2018 Instruction Type:Provider Instructions for Treatment How to access health informa tion online Indication:Nonsmoker Start:21-Mar-2018 Instruction Type:Patient Education How to access health informa tion online - Detail Indication:Nonsmoker Start:21-Mar-2018 Instruction Type:Patient Education Patient Instructions Indication:Nonsmoker Start:21-Mar-2018 Instruction Type:Provider Instructions for Treatment How to access health informa tion online Indication:Nonsmoker Start:05-Mar-2018 Instruction Type:Patient Education How to access health informa tion online - Detail Indication:Nonsmoker Start:05-Mar-2018 Instruction Type:Patient Education Patient Instructions Indication:Nonsmoker Start:05-Mar-2018 Instruction Type:Provider Instructions for Treatment How to access health informa tion online Indication:BMI 28.0-28.9,adult Start:09-Jan-2018 Instruction Type:Patient Education How to access health informa tion online - Detail Indication:BMI 28.0-28.9,adult Start:09-Jan-2018 Instruction Type:Patient Education Patient Instructions Indication:BMI 28.0-28.9,adult Start:09-Jan-2018 Instruction Type:Provider Instructions for Treatment How to access health informa tion online Indication:Diabetes mellitus type 2, uncontrolled, without complications Start:02-Dec-2017 Instruction Type:Patient Education How to access health informa tion online - Detail Indication:Diabetes mellitus type 2, uncontrolled, without complications Start:02-Dec-2017 Instruction Type:Patient Education Patient Instructions Indication:Diabetes mellitus type 2, uncontrolled, without complications Start:02-Dec-2017 Instruction Type:Provider Instructions for Treatment How to access health informa tion online Indication:Nonsmoker Start:05-Nov-2017 Instruction Type:Patient Education How to access health informa tion online - Detail Indication:Nonsmoker Start:05-Nov-2017 Instruction Type:Patient Education Patient Instructions Indication:Nonsmoker Start:05-Nov-2017 Instruction Type:Provider Instructions for Treatment Patient Instructions Indication:Chest congestion Start:20-Sep-2017 Instruction Type:Provider Instructions for Treatment How to access health informa tion online Indication:Chest congestion Start:20-Sep-2017 Instruction Type:Patient Education How to access health informa tion online - Detail Indication:Chest congestion Start:20-Sep-2017 Instruction Type:Patient Education How to access health informa tion online Indication:Nonsmoker Start:07-Aug-2017 Instruction Type:Patient Education How to access health informa tion online - Detail Indication:Nonsmoker Start:07-Aug-2017 Instruction Type:Patient Education Patient Instructions Indication:Nonsmoker Start:07-Aug-2017 Instruction Type:Provider Instructions for Treatment How to access health informa tion online Indication:Diabetes mellitus type 2, uncontrolled, without complications Start:31-Jul-2017 Instruction Type:Patient Education How to access health informa tion online - Detail Indication:Diabetes mellitus type 2, uncontrolled, without complications Start:31-Jul-2017 Instruction Type:Patient Education Patient Instructions Indication:Diabetes mellitus type 2, uncontrolled, without complications Start:31-Jul-2017 Instruction Type:Provider Instructions for Treatment How to access health informa tion online Indication:Anxiety Start:22-Apr-2017 Instruction Type:Patient Education How to access health informa tion online - Detail Indication:Anxiety Start:22-Apr-2017 Instruction Type:Patient Education Patient Instructions Indication:Anxiety Start:22-Apr-2017 Instruction Type:Provider Instructions for Treatment How to access health informa tion online Indication:Diabetes mellitus type 2, uncontrolled, without complications Start:22-Apr-2017 Instruction Type:Patient Education How to access health informa tion online - Detail Indication:Diabetes mellitus type 2, uncontrolled, without complications Start:22-Apr-2017 Instruction Type:Patient Education Patient Instructions Indication:Diabetes mellitus type 2, uncontrolled, without complications Start:22-Apr-2017 Instruction Type:Provider Instructions for Treatment How to access health informa tion online Indication:Flu-like symptoms Start:17-Aug-2016 Instruction Type:Patient Education How to access health informa tion online - Detail Indication:Flu-like symptoms Start:17-Aug-2016 Instruction Type:Patient Education Patient Instructions Indication:Flu-like symptoms Start:17-Aug-2016 Instruction Type:Provider Instructions for Treatment How to access health informa tion online - Detail Indication:Diabetes mellitus type 2, uncontrolled, without complications Start:15-Sep-2015 Instruction Type:Patient Education How to access health informa tion online Indication:Diabetes mellitus type 2, uncontrolled, without complications Start:15-Sep-2015 Instruction Type:Patient Education Patient Instructions Indication:Diabetes mellitus type 2, uncontrolled, without complications Start:15-Sep-2015 Instruction Type:Provider Instructions for Treatment Patient Instructions Indication:Hypercholesteremia Start:03-Aug-2015 Instruction Type:Provider Instructions for Treatment How to access health informa tion online Indication:Diabetes mellitus type 2, uncontrolled, without complications Start:01-Jul-2015 Instruction Type:Patient Education How to access health informa tion online - Detail Indication:Diabetes mellitus type 2, uncontrolled, without complications Start:01-Jul-2015 Instruction Type:Patient Education Patient Instructions Indication:Diabetes mellitus type 2, uncontrolled, without complications Start:01-Jul-2015 Instruction Type:Provider Instructions for Treatment Patient Instructions Indication:Anxiety Start:16-Feb-2015 Instruction Type:Provider Instructions for Treatment How to access health informa tion online Indication:Anxiety Start:16-Feb-2015 Instruction Type:Patient Education How to access health informa tion online - Detail Indication:Anxiety Start:16-Feb-2015 Instruction Type:Patient Education Patient Instructions Indication:Anxiety Start:06-Aug-2012 Instruction Type:Provider Instructions for Treatment Patient Instructions Indication:Benign paroxysmal positional vertigo Start:30-Jun-2012 Instruction Type:Provider Instructions for Treatment Name Dates Details How to access health informa tion online Indication:Nonsmoker Start:28-Apr-2020 Instruction Type:Patient Education How to access health informa tion online - Detail Indication:Nonsmoker Start:28-Apr-2020 Instruction Type:Patient Education Patient Instructions Indication:Nonsmoker Start:28-Apr-2020 Instruction Type:Provider Instructions for Treatment How to access health informa tion online Indication:Nonsmoker Start:12-Feb-2020 Instruction Type:Patient Education How to access health informa tion online - Detail Indication:Nonsmoker Start:12-Feb-2020 Instruction Type:Patient Education Patient Instructions Indication:Nonsmoker Start:12-Feb-2020 Instruction Type:Provider Instructions for Treatment How to access health informa tion online Indication:BMI 28.0-28.9,adult Start:21-Jan-2020 Instruction Type:Patient Education How to access health informa tion online - Detail Indication:BMI 28.0-28.9,adult Start:21-Jan-2020 Instruction Type:Patient Education Patient Instructions Indication:BMI 28.0-28.9,adult Start:21-Jan-2020 Instruction Type:Provider Instructions for Treatment How to access health informa tion online Indication:Diabetes mellitus type 2, uncontrolled, without complications Start:06-May-2019 Instruction Type:Patient Education How to access health informa tion online - Detail Indication:Diabetes mellitus type 2, uncontrolled, without complications Start:06-May-2019 Instruction Type:Patient Education Patient Instructions Indication:Diabetes mellitus type 2, uncontrolled, without complications Start:06-May-2019 Instruction Type:Provider Instructions for Treatment How to access health informa tion online Indication:Diabetes mellitus type 2, uncontrolled, without complications Start:28-Jan-2019 Instruction Type:Patient Education How to access health informa tion online - Detail Indication:Diabetes mellitus type 2, uncontrolled, without complications Start:28-Jan-2019 Instruction Type:Patient Education Patient Instructions Indication:Diabetes mellitus type 2, uncontrolled, without complications Start:28-Jan-2019 Instruction Type:Provider Instructions for Treatment How to access health informa tion online Indication:BMI 29.0-29.9,adult Start:20-Aug-2018 Instruction Type:Patient Education How to access health informa tion online - Detail Indication:BMI 29.0-29.9,adult Start:20-Aug-2018 Instruction Type:Patient Education Patient Instructions Indication:BMI 29.0-29.9,adult Start:20-Aug-2018 Instruction Type:Provider Instructions for Treatment How to access health informa tion online Indication:Diabetes mellitus type 2, uncontrolled, without complications Start:02-Jul-2018 Instruction Type:Patient Education How to access health informa tion online - Detail Indication:Diabetes mellitus type 2, uncontrolled, without complications Start:02-Jul-2018 Instruction Type:Patient Education Patient Instructions Indication:Diabetes mellitus type 2, uncontrolled, without complications Start:02-Jul-2018 Instruction Type:Provider Instructions for Treatment Patient Instructions Indication:Low back pain, episodic Start:30-Apr-2018 Instruction Type:Provider Instructions for Treatment How to access health informa tion online Indication:Rash Start:26-Mar-2018 Instruction Type:Patient Education How to access health informa tion online - Detail Indication:Rash Start:26-Mar-2018 Instruction Type:Patient Education Patient Instructions Indication:Rash Start:26-Mar-2018 Instruction Type:Provider Instructions for Treatment How to access health informa tion online Indication:Nonsmoker Start:21-Mar-2018 Instruction Type:Patient Education How to access health informa tion online - Detail Indication:Nonsmoker Start:21-Mar-2018 Instruction Type:Patient Education Patient Instructions Indication:Nonsmoker Start:21-Mar-2018 Instruction Type:Provider Instructions for Treatment How to access health informa tion online Indication:Nonsmoker Start:05-Mar-2018 Instruction Type:Patient Education How to access health informa tion online - Detail Indication:Nonsmoker Start:05-Mar-2018 Instruction Type:Patient Education Patient Instructions Indication:Nonsmoker Start:05-Mar-2018 Instruction Type:Provider Instructions for Treatment How to access health informa tion online Indication:BMI 28.0-28.9,adult Start:09-Jan-2018 Instruction Type:Patient Education How to access health informa tion online - Detail Indication:BMI 28.0-28.9,adult Start:09-Jan-2018 Instruction Type:Patient Education Patient Instructions Indication:BMI 28.0-28.9,adult Start:09-Jan-2018 Instruction Type:Provider Instructions for Treatment How to access health informa tion online Indication:Diabetes mellitus type 2, uncontrolled, without complications Start:02-Dec-2017 Instruction Type:Patient Education How to access health informa tion online - Detail Indication:Diabetes mellitus type 2, uncontrolled, without complications Start:02-Dec-2017 Instruction Type:Patient Education Patient Instructions Indication:Diabetes mellitus type 2, uncontrolled, without complications Start:02-Dec-2017 Instruction Type:Provider Instructions for Treatment How to access health informa tion online Indication:Nonsmoker Start:05-Nov-2017 Instruction Type:Patient Education How to access health informa tion online - Detail Indication:Nonsmoker Start:05-Nov-2017 Instruction Type:Patient Education Patient Instructions Indication:Nonsmoker Start:05-Nov-2017 Instruction Type:Provider Instructions for Treatment Patient Instructions Indication:Chest congestion Start:20-Sep-2017 Instruction Type:Provider Instructions for Treatment How to access health informa tion online Indication:Chest congestion Start:20-Sep-2017 Instruction Type:Patient Education How to access health informa tion online - Detail Indication:Chest congestion Start:20-Sep-2017 Instruction Type:Patient Education How to access health informa tion online Indication:Nonsmoker Start:07-Aug-2017 Instruction Type:Patient Education How to access health informa tion online - Detail Indication:Nonsmoker Start:07-Aug-2017 Instruction Type:Patient Education Patient Instructions Indication:Nonsmoker Start:07-Aug-2017 Instruction Type:Provider Instructions for Treatment How to access health informa tion online Indication:Diabetes mellitus type 2, uncontrolled, without complications Start:31-Jul-2017 Instruction Type:Patient Education How to access health informa tion online - Detail Indication:Diabetes mellitus type 2, uncontrolled, without complications Start:31-Jul-2017 Instruction Type:Patient Education Patient Instructions Indication:Diabetes mellitus type 2, uncontrolled, without complications Start:31-Jul-2017 Instruction Type:Provider Instructions for Treatment How to access health informa tion online Indication:Anxiety Start:22-Apr-2017 Instruction Type:Patient Education How to access health informa tion online - Detail Indication:Anxiety Start:22-Apr-2017 Instruction Type:Patient Education Patient Instructions Indication:Anxiety Start:22-Apr-2017 Instruction Type:Provider Instructions for Treatment How to access health informa tion online Indication:Diabetes mellitus type 2, uncontrolled, without complications Start:22-Apr-2017 Instruction Type:Patient Education How to access health informa tion online - Detail Indication:Diabetes mellitus type 2, uncontrolled, without complications Start:22-Apr-2017 Instruction Type:Patient Education Patient Instructions Indication:Diabetes mellitus type 2, uncontrolled, without complications Start:22-Apr-2017 Instruction Type:Provider Instructions for Treatment How to access health informa tion online Indication:Flu-like symptoms Start:17-Aug-2016 Instruction Type:Patient Education How to access health informa tion online - Detail Indication:Flu-like symptoms Start:17-Aug-2016 Instruction Type:Patient Education Patient Instructions Indication:Flu-like symptoms Start:17-Aug-2016 Instruction Type:Provider Instructions for Treatment How to access health informa tion online - Detail Indication:Diabetes mellitus type 2, uncontrolled, without complications Start:15-Sep-2015 Instruction Type:Patient Education How to access health informa tion online Indication:Diabetes mellitus type 2, uncontrolled, without complications Start:15-Sep-2015 Instruction Type:Patient Education Patient Instructions Indication:Diabetes mellitus type 2, uncontrolled, without complications Start:15-Sep-2015 Instruction Type:Provider Instructions for Treatment Patient Instructions Indication:Hypercholesteremia Start:03-Aug-2015 Instruction Type:Provider Instructions for Treatment How to access health informa tion online Indication:Diabetes mellitus type 2, uncontrolled, without complications Start:01-Jul-2015 Instruction Type:Patient Education How to access health informa tion online - Detail Indication:Diabetes mellitus type 2, uncontrolled, without complications Start:01-Jul-2015 Instruction Type:Patient Education Patient Instructions Indication:Diabetes mellitus type 2, uncontrolled, without complications Start:01-Jul-2015 Instruction Type:Provider Instructions for Treatment Patient Instructions Indication:Anxiety Start:16-Feb-2015 Instruction Type:Provider Instructions for Treatment How to access health informa tion online Indication:Anxiety Start:16-Feb-2015 Instruction Type:Patient Education How to access health informa tion online - Detail Indication:Anxiety Start:16-Feb-2015 Instruction Type:Patient Education Patient Instructions Indication:Anxiety Start:06-Aug-2012 Instruction Type:Provider Instructions for Treatment Patient Instructions Indication:Benign paroxysmal positional vertigo Start:30-Jun-2012 Instruction Type:Provider Instructions for Treatment Name Dates Details How to access health informa tion online Indication:Nonsmoker Start:28-Apr-2020 Instruction Type:Patient Education How to access health informa tion online - Detail Indication:Nonsmoker Start:28-Apr-2020 Instruction Type:Patient Education Patient Instructions Indication:Nonsmoker Start:28-Apr-2020 Instruction Type:Provider Instructions for Treatment How to access health informa tion online Indication:Nonsmoker Start:12-Feb-2020 Instruction Type:Patient Education How to access health informa tion online - Detail Indication:Nonsmoker Start:12-Feb-2020 Instruction Type:Patient Education Patient Instructions Indication:Nonsmoker Start:12-Feb-2020 Instruction Type:Provider Instructions for Treatment How to access health informa tion online Indication:BMI 28.0-28.9,adult Start:21-Jan-2020 Instruction Type:Patient Education How to access health informa tion online - Detail Indication:BMI 28.0-28.9,adult Start:21-Jan-2020 Instruction Type:Patient Education Patient Instructions Indication:BMI 28.0-28.9,adult Start:21-Jan-2020 Instruction Type:Provider Instructions for Treatment How to access health informa tion online Indication:Diabetes mellitus type 2, uncontrolled, without complications Start:06-May-2019 Instruction Type:Patient Education How to access health informa tion online - Detail Indication:Diabetes mellitus type 2, uncontrolled, without complications Start:06-May-2019 Instruction Type:Patient Education Patient Instructions Indication:Diabetes mellitus type 2, uncontrolled, without complications Start:06-May-2019 Instruction Type:Provider Instructions for Treatment How to access health informa tion online Indication:Diabetes mellitus type 2, uncontrolled, without complications Start:28-Jan-2019 Instruction Type:Patient Education How to access health informa tion online - Detail Indication:Diabetes mellitus type 2, uncontrolled, without complications Start:28-Jan-2019 Instruction Type:Patient Education Patient Instructions Indication:Diabetes mellitus type 2, uncontrolled, without complications Start:28-Jan-2019 Instruction Type:Provider Instructions for Treatment How to access health informa tion online Indication:BMI 29.0-29.9,adult Start:20-Aug-2018 Instruction Type:Patient Education How to access health informa tion online - Detail Indication:BMI 29.0-29.9,adult Start:20-Aug-2018 Instruction Type:Patient Education Patient Instructions Indication:BMI 29.0-29.9,adult Start:20-Aug-2018 Instruction Type:Provider Instructions for Treatment How to access health informa tion online Indication:Diabetes mellitus type 2, uncontrolled, without complications Start:02-Jul-2018 Instruction Type:Patient Education How to access health informa tion online - Detail Indication:Diabetes mellitus type 2, uncontrolled, without complications Start:02-Jul-2018 Instruction Type:Patient Education Patient Instructions Indication:Diabetes mellitus type 2, uncontrolled, without complications Start:02-Jul-2018 Instruction Type:Provider Instructions for Treatment Patient Instructions Indication:Low back pain, episodic Start:30-Apr-2018 Instruction Type:Provider Instructions for Treatment How to access health informa tion online Indication:Rash Start:26-Mar-2018 Instruction Type:Patient Education How to access health informa tion online - Detail Indication:Rash Start:26-Mar-2018 Instruction Type:Patient Education Patient Instructions Indication:Rash Start:26-Mar-2018 Instruction Type:Provider Instructions for Treatment How to access health informa tion online Indication:Nonsmoker Start:21-Mar-2018 Instruction Type:Patient Education How to access health informa tion online - Detail Indication:Nonsmoker Start:21-Mar-2018 Instruction Type:Patient Education Patient Instructions Indication:Nonsmoker Start:21-Mar-2018 Instruction Type:Provider Instructions for Treatment How to access health informa tion online Indication:Nonsmoker Start:05-Mar-2018 Instruction Type:Patient Education How to access health informa tion online - Detail Indication:Nonsmoker Start:05-Mar-2018 Instruction Type:Patient Education Patient Instructions Indication:Nonsmoker Start:05-Mar-2018 Instruction Type:Provider Instructions for Treatment How to access health informa tion online Indication:BMI 28.0-28.9,adult Start:09-Jan-2018 Instruction Type:Patient Education How to access health informa tion online - Detail Indication:BMI 28.0-28.9,adult Start:09-Jan-2018 Instruction Type:Patient Education Patient Instructions Indication:BMI 28.0-28.9,adult Start:09-Jan-2018 Instruction Type:Provider Instructions for Treatment How to access health informa tion online Indication:Diabetes mellitus type 2, uncontrolled, without complications Start:02-Dec-2017 Instruction Type:Patient Education How to access health informa tion online - Detail Indication:Diabetes mellitus type 2, uncontrolled, without complications Start:02-Dec-2017 Instruction Type:Patient Education Patient Instructions Indication:Diabetes mellitus type 2, uncontrolled, without complications Start:02-Dec-2017 Instruction Type:Provider Instructions for Treatment How to access health informa tion online Indication:Nonsmoker Start:05-Nov-2017 Instruction Type:Patient Education How to access health informa tion online - Detail Indication:Nonsmoker Start:05-Nov-2017 Instruction Type:Patient Education Patient Instructions Indication:Nonsmoker Start:05-Nov-2017 Instruction Type:Provider Instructions for Treatment Patient Instructions Indication:Chest congestion Start:20-Sep-2017 Instruction Type:Provider Instructions for Treatment How to access health informa tion online Indication:Chest congestion Start:20-Sep-2017 Instruction Type:Patient Education How to access health informa tion online - Detail Indication:Chest congestion Start:20-Sep-2017 Instruction Type:Patient Education How to access health informa tion online Indication:Nonsmoker Start:07-Aug-2017 Instruction Type:Patient Education How to access health informa tion online - Detail Indication:Nonsmoker Start:07-Aug-2017 Instruction Type:Patient Education Patient Instructions Indication:Nonsmoker Start:07-Aug-2017 Instruction Type:Provider Instructions for Treatment How to access health informa tion online Indication:Diabetes mellitus type 2, uncontrolled, without complications Start:31-Jul-2017 Instruction Type:Patient Education How to access health informa tion online - Detail Indication:Diabetes mellitus type 2, uncontrolled, without complications Start:31-Jul-2017 Instruction Type:Patient Education Patient Instructions Indication:Diabetes mellitus type 2, uncontrolled, without complications Start:31-Jul-2017 Instruction Type:Provider Instructions for Treatment How to access health informa tion online Indication:Anxiety Start:22-Apr-2017 Instruction Type:Patient Education How to access health informa tion online - Detail Indication:Anxiety Start:22-Apr-2017 Instruction Type:Patient Education Patient Instructions Indication:Anxiety Start:22-Apr-2017 Instruction Type:Provider Instructions for Treatment How to access health informa tion online Indication:Diabetes mellitus type 2, uncontrolled, without complications Start:22-Apr-2017 Instruction Type:Patient Education How to access health informa tion online - Detail Indication:Diabetes mellitus type 2, uncontrolled, without complications Start:22-Apr-2017 Instruction Type:Patient Education Patient Instructions Indication:Diabetes mellitus type 2, uncontrolled, without complications Start:22-Apr-2017 Instruction Type:Provider Instructions for Treatment How to access health informa tion online Indication:Flu-like symptoms Start:17-Aug-2016 Instruction Type:Patient Education How to access health informa tion online - Detail Indication:Flu-like symptoms Start:17-Aug-2016 Instruction Type:Patient Education Patient Instructions Indication:Flu-like symptoms Start:17-Aug-2016 Instruction Type:Provider Instructions for Treatment How to access health informa tion online - Detail Indication:Diabetes mellitus type 2, uncontrolled, without complications Start:15-Sep-2015 Instruction Type:Patient Education How to access health informa tion online Indication:Diabetes mellitus type 2, uncontrolled, without complications Start:15-Sep-2015 Instruction Type:Patient Education Patient Instructions Indication:Diabetes mellitus type 2, uncontrolled, without complications Start:15-Sep-2015 Instruction Type:Provider Instructions for Treatment Patient Instructions Indication:Hypercholesteremia Start:03-Aug-2015 Instruction Type:Provider Instructions for Treatment How to access health informa tion online Indication:Diabetes mellitus type 2, uncontrolled, without complications Start:01-Jul-2015 Instruction Type:Patient Education How to access health informa tion online - Detail Indication:Diabetes mellitus type 2, uncontrolled, without complications Start:01-Jul-2015 Instruction Type:Patient Education Patient Instructions Indication:Diabetes mellitus type 2, uncontrolled, without complications Start:01-Jul-2015 Instruction Type:Provider Instructions for Treatment Patient Instructions Indication:Anxiety Start:16-Feb-2015 Instruction Type:Provider Instructions for Treatment How to access health informa tion online Indication:Anxiety Start:16-Feb-2015 Instruction Type:Patient Education How to access health informa tion online - Detail Indication:Anxiety Start:16-Feb-2015 Instruction Type:Patient Education Patient Instructions Indication:Anxiety Start:06-Aug-2012 Instruction Type:Provider Instructions for Treatment Patient Instructions Indication:Benign paroxysmal positional vertigo Start:30-Jun-2012 Instruction Type:Provider Instructions for Treatment Name Dates Details How to access health informa tion online Indication:Nonsmoker Start:24-Aug-2020 Instruction Type:Patient Education How to access health informa tion online - Detail Indication:Nonsmoker Start:24-Aug-2020 Instruction Type:Patient Education Patient Instructions Indication:Nonsmoker Start:24-Aug-2020 Instruction Type:Provider Instructions for Treatment How to access health informa tion online Indication:Nonsmoker Start:28-Apr-2020 Instruction Type:Patient Education How to access health informa tion online - Detail Indication:Nonsmoker Start:28-Apr-2020 Instruction Type:Patient Education Patient Instructions Indication:Nonsmoker Start:28-Apr-2020 Instruction Type:Provider Instructions for Treatment How to access health informa tion online Indication:Nonsmoker Start:12-Feb-2020 Instruction Type:Patient Education How to access health informa tion online - Detail Indication:Nonsmoker Start:12-Feb-2020 Instruction Type:Patient Education Patient Instructions Indication:Nonsmoker Start:12-Feb-2020 Instruction Type:Provider Instructions for Treatment How to access health informa tion online Indication:BMI 28.0-28.9,adult Start:21-Jan-2020 Instruction Type:Patient Education How to access health informa tion online - Detail Indication:BMI 28.0-28.9,adult Start:21-Jan-2020 Instruction Type:Patient Education Patient Instructions Indication:BMI 28.0-28.9,adult Start:21-Jan-2020 Instruction Type:Provider Instructions for Treatment How to access health informa tion online Indication:Diabetes mellitus type 2, uncontrolled, without complications Start:06-May-2019 Instruction Type:Patient Education How to access health informa tion online - Detail Indication:Diabetes mellitus type 2, uncontrolled, without complications Start:06-May-2019 Instruction Type:Patient Education Patient Instructions Indication:Diabetes mellitus type 2, uncontrolled, without complications Start:06-May-2019 Instruction Type:Provider Instructions for Treatment How to access health informa tion online Indication:Diabetes mellitus type 2, uncontrolled, without complications Start:28-Jan-2019 Instruction Type:Patient Education How to access health informa tion online - Detail Indication:Diabetes mellitus type 2, uncontrolled, without complications Start:28-Jan-2019 Instruction Type:Patient Education Patient Instructions Indication:Diabetes mellitus type 2, uncontrolled, without complications Start:28-Jan-2019 Instruction Type:Provider Instructions for Treatment How to access health informa tion online Indication:BMI 29.0-29.9,adult Start:20-Aug-2018 Instruction Type:Patient Education How to access health informa tion online - Detail Indication:BMI 29.0-29.9,adult Start:20-Aug-2018 Instruction Type:Patient Education Patient Instructions Indication:BMI 29.0-29.9,adult Start:20-Aug-2018 Instruction Type:Provider Instructions for Treatment How to access health informa tion online Indication:Diabetes mellitus type 2, uncontrolled, without complications Start:02-Jul-2018 Instruction Type:Patient Education How to access health informa tion online - Detail Indication:Diabetes mellitus type 2, uncontrolled, without complications Start:02-Jul-2018 Instruction Type:Patient Education Patient Instructions Indication:Diabetes mellitus type 2, uncontrolled, without complications Start:02-Jul-2018 Instruction Type:Provider Instructions for Treatment Patient Instructions Indication:Low back pain, episodic Start:30-Apr-2018 Instruction Type:Provider Instructions for Treatment How to access health informa tion online Indication:Rash Start:26-Mar-2018 Instruction Type:Patient Education How to access health informa tion online - Detail Indication:Rash Start:26-Mar-2018 Instruction Type:Patient Education Patient Instructions Indication:Rash Start:26-Mar-2018 Instruction Type:Provider Instructions for Treatment How to access health informa tion online Indication:Nonsmoker Start:21-Mar-2018 Instruction Type:Patient Education How to access health informa tion online - Detail Indication:Nonsmoker Start:21-Mar-2018 Instruction Type:Patient Education Patient Instructions Indication:Nonsmoker Start:21-Mar-2018 Instruction Type:Provider Instructions for Treatment How to access health informa tion online Indication:Nonsmoker Start:05-Mar-2018 Instruction Type:Patient Education How to access health informa tion online - Detail Indication:Nonsmoker Start:05-Mar-2018 Instruction Type:Patient Education Patient Instructions Indication:Nonsmoker Start:05-Mar-2018 Instruction Type:Provider Instructions for Treatment How to access health informa tion online Indication:BMI 28.0-28.9,adult Start:09-Jan-2018 Instruction Type:Patient Education How to access health informa tion online - Detail Indication:BMI 28.0-28.9,adult Start:09-Jan-2018 Instruction Type:Patient Education Patient Instructions Indication:BMI 28.0-28.9,adult Start:09-Jan-2018 Instruction Type:Provider Instructions for Treatment How to access health informa tion online Indication:Diabetes mellitus type 2, uncontrolled, without complications Start:02-Dec-2017 Instruction Type:Patient Education How to access health informa tion online - Detail Indication:Diabetes mellitus type 2, uncontrolled, without complications Start:02-Dec-2017 Instruction Type:Patient Education Patient Instructions Indication:Diabetes mellitus type 2, uncontrolled, without complications Start:02-Dec-2017 Instruction Type:Provider Instructions for Treatment How to access health informa tion online Indication:Nonsmoker Start:05-Nov-2017 Instruction Type:Patient Education How to access health informa tion online - Detail Indication:Nonsmoker Start:05-Nov-2017 Instruction Type:Patient Education Patient Instructions Indication:Nonsmoker Start:05-Nov-2017 Instruction Type:Provider Instructions for Treatment Patient Instructions Indication:Chest congestion Start:20-Sep-2017 Instruction Type:Provider Instructions for Treatment How to access health informa tion online Indication:Chest congestion Start:20-Sep-2017 Instruction Type:Patient Education How to access health informa tion online - Detail Indication:Chest congestion Start:20-Sep-2017 Instruction Type:Patient Education How to access health informa tion online Indication:Nonsmoker Start:07-Aug-2017 Instruction Type:Patient Education How to access health informa tion online - Detail Indication:Nonsmoker Start:07-Aug-2017 Instruction Type:Patient Education Patient Instructions Indication:Nonsmoker Start:07-Aug-2017 Instruction Type:Provider Instructions for Treatment How to access health informa tion online Indication:Diabetes mellitus type 2, uncontrolled, without complications Start:31-Jul-2017 Instruction Type:Patient Education How to access health informa tion online - Detail Indication:Diabetes mellitus type 2, uncontrolled, without complications Start:31-Jul-2017 Instruction Type:Patient Education Patient Instructions Indication:Diabetes mellitus type 2, uncontrolled, without complications Start:31-Jul-2017 Instruction Type:Provider Instructions for Treatment How to access health informa tion online Indication:Anxiety Start:22-Apr-2017 Instruction Type:Patient Education How to access health informa tion online - Detail Indication:Anxiety Start:22-Apr-2017 Instruction Type:Patient Education Patient Instructions Indication:Anxiety Start:22-Apr-2017 Instruction Type:Provider Instructions for Treatment How to access health informa tion online Indication:Diabetes mellitus type 2, uncontrolled, without complications Start:22-Apr-2017 Instruction Type:Patient Education How to access health informa tion online - Detail Indication:Diabetes mellitus type 2, uncontrolled, without complications Start:22-Apr-2017 Instruction Type:Patient Education Patient Instructions Indication:Diabetes mellitus type 2, uncontrolled, without complications Start:22-Apr-2017 Instruction Type:Provider Instructions for Treatment How to access health informa tion online Indication:Flu-like symptoms Start:17-Aug-2016 Instruction Type:Patient Education How to access health informa tion online - Detail Indication:Flu-like symptoms Start:17-Aug-2016 Instruction Type:Patient Education Patient Instructions Indication:Flu-like symptoms Start:17-Aug-2016 Instruction Type:Provider Instructions for Treatment How to access health informa tion online - Detail Indication:Diabetes mellitus type 2, uncontrolled, without complications Start:15-Sep-2015 Instruction Type:Patient Education How to access health informa tion online Indication:Diabetes mellitus type 2, uncontrolled, without complications Start:15-Sep-2015 Instruction Type:Patient Education Patient Instructions Indication:Diabetes mellitus type 2, uncontrolled, without complications Start:15-Sep-2015 Instruction Type:Provider Instructions for Treatment Patient Instructions Indication:Hypercholesteremia Start:03-Aug-2015 Instruction Type:Provider Instructions for Treatment How to access health informa tion online Indication:Diabetes mellitus type 2, uncontrolled, without complications Start:01-Jul-2015 Instruction Type:Patient Education How to access health informa tion online - Detail Indication:Diabetes mellitus type 2, uncontrolled, without complications Start:01-Jul-2015 Instruction Type:Patient Education Patient Instructions Indication:Diabetes mellitus type 2, uncontrolled, without complications Start:01-Jul-2015 Instruction Type:Provider Instructions for Treatment Patient Instructions Indication:Anxiety Start:16-Feb-2015 Instruction Type:Provider Instructions for Treatment How to access health informa tion online Indication:Anxiety Start:16-Feb-2015 Instruction Type:Patient Education How to access health informa tion online - Detail Indication:Anxiety Start:16-Feb-2015 Instruction Type:Patient Education Patient Instructions Indication:Anxiety Start:06-Aug-2012 Instruction Type:Provider Instructions for Treatment Patient Instructions Indication:Benign paroxysmal positional vertigo Start:30-Jun-2012 Instruction Type:Provider Instructions for Treatment Name Dates Details How to access health informa tion online Indication:Nonsmoker Start:24-Aug-2020 Instruction Type:Patient Education How to access health informa tion online - Detail Indication:Nonsmoker Start:24-Aug-2020 Instruction Type:Patient Education Patient Instructions Indication:Nonsmoker Start:24-Aug-2020 Instruction Type:Provider Instructions for Treatment How to access health informa tion online Indication:Nonsmoker Start:28-Apr-2020 Instruction Type:Patient Education How to access health informa tion online - Detail Indication:Nonsmoker Start:28-Apr-2020 Instruction Type:Patient Education Patient Instructions Indication:Nonsmoker Start:28-Apr-2020 Instruction Type:Provider Instructions for Treatment How to access health informa tion online Indication:Nonsmoker Start:12-Feb-2020 Instruction Type:Patient Education How to access health informa tion online - Detail Indication:Nonsmoker Start:12-Feb-2020 Instruction Type:Patient Education Patient Instructions Indication:Nonsmoker Start:12-Feb-2020 Instruction Type:Provider Instructions for Treatment How to access health informa tion online Indication:BMI 28.0-28.9,adult Start:21-Jan-2020 Instruction Type:Patient Education How to access health informa tion online - Detail Indication:BMI 28.0-28.9,adult Start:21-Jan-2020 Instruction Type:Patient Education Patient Instructions Indication:BMI 28.0-28.9,adult Start:21-Jan-2020 Instruction Type:Provider Instructions for Treatment How to access health informa tion online Indication:Diabetes mellitus type 2, uncontrolled, without complications Start:06-May-2019 Instruction Type:Patient Education How to access health informa tion online - Detail Indication:Diabetes mellitus type 2, uncontrolled, without complications Start:06-May-2019 Instruction Type:Patient Education Patient Instructions Indication:Diabetes mellitus type 2, uncontrolled, without complications Start:06-May-2019 Instruction Type:Provider Instructions for Treatment How to access health informa tion online Indication:Diabetes mellitus type 2, uncontrolled, without complications Start:28-Jan-2019 Instruction Type:Patient Education How to access health informa tion online - Detail Indication:Diabetes mellitus type 2, uncontrolled, without complications Start:28-Jan-2019 Instruction Type:Patient Education Patient Instructions Indication:Diabetes mellitus type 2, uncontrolled, without complications Start:28-Jan-2019 Instruction Type:Provider Instructions for Treatment How to access health informa tion online Indication:BMI 29.0-29.9,adult Start:20-Aug-2018 Instruction Type:Patient Education How to access health informa tion online - Detail Indication:BMI 29.0-29.9,adult Start:20-Aug-2018 Instruction Type:Patient Education Patient Instructions Indication:BMI 29.0-29.9,adult Start:20-Aug-2018 Instruction Type:Provider Instructions for Treatment How to access health informa tion online Indication:Diabetes mellitus type 2, uncontrolled, without complications Start:02-Jul-2018 Instruction Type:Patient Education How to access health informa tion online - Detail Indication:Diabetes mellitus type 2, uncontrolled, without complications Start:02-Jul-2018 Instruction Type:Patient Education Patient Instructions Indication:Diabetes mellitus type 2, uncontrolled, without complications Start:02-Jul-2018 Instruction Type:Provider Instructions for Treatment Patient Instructions Indication:Low back pain, episodic Start:30-Apr-2018 Instruction Type:Provider Instructions for Treatment How to access health informa tion online Indication:Rash Start:26-Mar-2018 Instruction Type:Patient Education How to access health informa tion online - Detail Indication:Rash Start:26-Mar-2018 Instruction Type:Patient Education Patient Instructions Indication:Rash Start:26-Mar-2018 Instruction Type:Provider Instructions for Treatment How to access health informa tion online Indication:Nonsmoker Start:21-Mar-2018 Instruction Type:Patient Education How to access health informa tion online - Detail Indication:Nonsmoker Start:21-Mar-2018 Instruction Type:Patient Education Patient Instructions Indication:Nonsmoker Start:21-Mar-2018 Instruction Type:Provider Instructions for Treatment How to access health informa tion online Indication:Nonsmoker Start:05-Mar-2018 Instruction Type:Patient Education How to access health informa tion online - Detail Indication:Nonsmoker Start:05-Mar-2018 Instruction Type:Patient Education Patient Instructions Indication:Nonsmoker Start:05-Mar-2018 Instruction Type:Provider Instructions for Treatment How to access health informa tion online Indication:BMI 28.0-28.9,adult Start:09-Jan-2018 Instruction Type:Patient Education How to access health informa tion online - Detail Indication:BMI 28.0-28.9,adult Start:09-Jan-2018 Instruction Type:Patient Education Patient Instructions Indication:BMI 28.0-28.9,adult Start:09-Jan-2018 Instruction Type:Provider Instructions for Treatment How to access health informa tion online Indication:Diabetes mellitus type 2, uncontrolled, without complications Start:02-Dec-2017 Instruction Type:Patient Education How to access health informa tion online - Detail Indication:Diabetes mellitus type 2, uncontrolled, without complications Start:02-Dec-2017 Instruction Type:Patient Education Patient Instructions Indication:Diabetes mellitus type 2, uncontrolled, without complications Start:02-Dec-2017 Instruction Type:Provider Instructions for Treatment How to access health informa tion online Indication:Nonsmoker Start:05-Nov-2017 Instruction Type:Patient Education How to access health informa tion online - Detail Indication:Nonsmoker Start:05-Nov-2017 Instruction Type:Patient Education Patient Instructions Indication:Nonsmoker Start:05-Nov-2017 Instruction Type:Provider Instructions for Treatment Patient Instructions Indication:Chest congestion Start:20-Sep-2017 Instruction Type:Provider Instructions for Treatment How to access health informa tion online Indication:Chest congestion Start:20-Sep-2017 Instruction Type:Patient Education How to access health informa tion online - Detail Indication:Chest congestion Start:20-Sep-2017 Instruction Type:Patient Education How to access health informa tion online Indication:Nonsmoker Start:07-Aug-2017 Instruction Type:Patient Education How to access health informa tion online - Detail Indication:Nonsmoker Start:07-Aug-2017 Instruction Type:Patient Education Patient Instructions Indication:Nonsmoker Start:07-Aug-2017 Instruction Type:Provider Instructions for Treatment How to access health informa tion online Indication:Diabetes mellitus type 2, uncontrolled, without complications Start:31-Jul-2017 Instruction Type:Patient Education How to access health informa tion online - Detail Indication:Diabetes mellitus type 2, uncontrolled, without complications Start:31-Jul-2017 Instruction Type:Patient Education Patient Instructions Indication:Diabetes mellitus type 2, uncontrolled, without complications Start:31-Jul-2017 Instruction Type:Provider Instructions for Treatment How to access health informa tion online Indication:Anxiety Start:22-Apr-2017 Instruction Type:Patient Education How to access health informa tion online - Detail Indication:Anxiety Start:22-Apr-2017 Instruction Type:Patient Education Patient Instructions Indication:Anxiety Start:22-Apr-2017 Instruction Type:Provider Instructions for Treatment How to access health informa tion online Indication:Diabetes mellitus type 2, uncontrolled, without complications Start:22-Apr-2017 Instruction Type:Patient Education How to access health informa tion online - Detail Indication:Diabetes mellitus type 2, uncontrolled, without complications Start:22-Apr-2017 Instruction Type:Patient Education Patient Instructions Indication:Diabetes mellitus type 2, uncontrolled, without complications Start:22-Apr-2017 Instruction Type:Provider Instructions for Treatment How to access health informa tion online Indication:Flu-like symptoms Start:17-Aug-2016 Instruction Type:Patient Education How to access health informa tion online - Detail Indication:Flu-like symptoms Start:17-Aug-2016 Instruction Type:Patient Education Patient Instructions Indication:Flu-like symptoms Start:17-Aug-2016 Instruction Type:Provider Instructions for Treatment How to access health informa tion online - Detail Indication:Diabetes mellitus type 2, uncontrolled, without complications Start:15-Sep-2015 Instruction Type:Patient Education How to access health informa tion online Indication:Diabetes mellitus type 2, uncontrolled, without complications Start:15-Sep-2015 Instruction Type:Patient Education Patient Instructions Indication:Diabetes mellitus type 2, uncontrolled, without complications Start:15-Sep-2015 Instruction Type:Provider Instructions for Treatment Patient Instructions Indication:Hypercholesteremia Start:03-Aug-2015 Instruction Type:Provider Instructions for Treatment How to access health informa tion online Indication:Diabetes mellitus type 2, uncontrolled, without complications Start:01-Jul-2015 Instruction Type:Patient Education How to access health informa tion online - Detail Indication:Diabetes mellitus type 2, uncontrolled, without complications Start:01-Jul-2015 Instruction Type:Patient Education Patient Instructions Indication:Diabetes mellitus type 2, uncontrolled, without complications Start:01-Jul-2015 Instruction Type:Provider Instructions for Treatment Patient Instructions Indication:Anxiety Start:16-Feb-2015 Instruction Type:Provider Instructions for Treatment How to access health informa tion online Indication:Anxiety Start:16-Feb-2015 Instruction Type:Patient Education How to access health informa tion online - Detail Indication:Anxiety Start:16-Feb-2015 Instruction Type:Patient Education Patient Instructions Indication:Anxiety Start:06-Aug-2012 Instruction Type:Provider Instructions for Treatment Patient Instructions Indication:Benign paroxysmal positional vertigo Start:30-Jun-2012 Instruction Type:Provider Instructions for Treatment Name Dates Details How to access health informa tion online Indication:Nonsmoker Start:24-Aug-2020 Instruction Type:Patient Education How to access health informa tion online - Detail Indication:Nonsmoker Start:24-Aug-2020 Instruction Type:Patient Education Patient Instructions Indication:Nonsmoker Start:24-Aug-2020 Instruction Type:Provider Instructions for Treatment How to access health informa tion online Indication:Nonsmoker Start:28-Apr-2020 Instruction Type:Patient Education How to access health informa tion online - Detail Indication:Nonsmoker Start:28-Apr-2020 Instruction Type:Patient Education Patient Instructions Indication:Nonsmoker Start:28-Apr-2020 Instruction Type:Provider Instructions for Treatment How to access health informa tion online Indication:Nonsmoker Start:12-Feb-2020 Instruction Type:Patient Education How to access health informa tion online - Detail Indication:Nonsmoker Start:12-Feb-2020 Instruction Type:Patient Education Patient Instructions Indication:Nonsmoker Start:12-Feb-2020 Instruction Type:Provider Instructions for Treatment How to access health informa tion online Indication:BMI 28.0-28.9,adult Start:21-Jan-2020 Instruction Type:Patient Education How to access health informa tion online - Detail Indication:BMI 28.0-28.9,adult Start:21-Jan-2020 Instruction Type:Patient Education Patient Instructions Indication:BMI 28.0-28.9,adult Start:21-Jan-2020 Instruction Type:Provider Instructions for Treatment How to access health informa tion online Indication:Diabetes mellitus type 2, uncontrolled, without complications Start:06-May-2019 Instruction Type:Patient Education How to access health informa tion online - Detail Indication:Diabetes mellitus type 2, uncontrolled, without complications Start:06-May-2019 Instruction Type:Patient Education Patient Instructions Indication:Diabetes mellitus type 2, uncontrolled, without complications Start:06-May-2019 Instruction Type:Provider Instructions for Treatment How to access health informa tion online Indication:Diabetes mellitus type 2, uncontrolled, without complications Start:28-Jan-2019 Instruction Type:Patient Education How to access health informa tion online - Detail Indication:Diabetes mellitus type 2, uncontrolled, without complications Start:28-Jan-2019 Instruction Type:Patient Education Patient Instructions Indication:Diabetes mellitus type 2, uncontrolled, without complications Start:28-Jan-2019 Instruction Type:Provider Instructions for Treatment How to access health informa tion online Indication:BMI 29.0-29.9,adult Start:20-Aug-2018 Instruction Type:Patient Education How to access health informa tion online - Detail Indication:BMI 29.0-29.9,adult Start:20-Aug-2018 Instruction Type:Patient Education Patient Instructions Indication:BMI 29.0-29.9,adult Start:20-Aug-2018 Instruction Type:Provider Instructions for Treatment How to access health informa tion online Indication:Diabetes mellitus type 2, uncontrolled, without complications Start:02-Jul-2018 Instruction Type:Patient Education How to access health informa tion online - Detail Indication:Diabetes mellitus type 2, uncontrolled, without complications Start:02-Jul-2018 Instruction Type:Patient Education Patient Instructions Indication:Diabetes mellitus type 2, uncontrolled, without complications Start:02-Jul-2018 Instruction Type:Provider Instructions for Treatment Patient Instructions Indication:Low back pain, episodic Start:30-Apr-2018 Instruction Type:Provider Instructions for Treatment How to access health informa tion online Indication:Rash Start:26-Mar-2018 Instruction Type:Patient Education How to access health informa tion online - Detail Indication:Rash Start:26-Mar-2018 Instruction Type:Patient Education Patient Instructions Indication:Rash Start:26-Mar-2018 Instruction Type:Provider Instructions for Treatment How to access health informa tion online Indication:Nonsmoker Start:21-Mar-2018 Instruction Type:Patient Education How to access health informa tion online - Detail Indication:Nonsmoker Start:21-Mar-2018 Instruction Type:Patient Education Patient Instructions Indication:Nonsmoker Start:21-Mar-2018 Instruction Type:Provider Instructions for Treatment How to access health informa tion online Indication:Nonsmoker Start:05-Mar-2018 Instruction Type:Patient Education How to access health informa tion online - Detail Indication:Nonsmoker Start:05-Mar-2018 Instruction Type:Patient Education Patient Instructions Indication:Nonsmoker Start:05-Mar-2018 Instruction Type:Provider Instructions for Treatment How to access health informa tion online Indication:BMI 28.0-28.9,adult Start:09-Jan-2018 Instruction Type:Patient Education How to access health informa tion online - Detail Indication:BMI 28.0-28.9,adult Start:09-Jan-2018 Instruction Type:Patient Education Patient Instructions Indication:BMI 28.0-28.9,adult Start:09-Jan-2018 Instruction Type:Provider Instructions for Treatment How to access health informa tion online Indication:Diabetes mellitus type 2, uncontrolled, without complications Start:02-Dec-2017 Instruction Type:Patient Education How to access health informa tion online - Detail Indication:Diabetes mellitus type 2, uncontrolled, without complications Start:02-Dec-2017 Instruction Type:Patient Education Patient Instructions Indication:Diabetes mellitus type 2, uncontrolled, without complications Start:02-Dec-2017 Instruction Type:Provider Instructions for Treatment How to access health informa tion online Indication:Nonsmoker Start:05-Nov-2017 Instruction Type:Patient Education How to access health informa tion online - Detail Indication:Nonsmoker Start:05-Nov-2017 Instruction Type:Patient Education Patient Instructions Indication:Nonsmoker Start:05-Nov-2017 Instruction Type:Provider Instructions for Treatment Patient Instructions Indication:Chest congestion Start:20-Sep-2017 Instruction Type:Provider Instructions for Treatment How to access health informa tion online Indication:Chest congestion Start:20-Sep-2017 Instruction Type:Patient Education How to access health informa tion online - Detail Indication:Chest congestion Start:20-Sep-2017 Instruction Type:Patient Education How to access health informa tion online Indication:Nonsmoker Start:07-Aug-2017 Instruction Type:Patient Education How to access health informa tion online - Detail Indication:Nonsmoker Start:07-Aug-2017 Instruction Type:Patient Education Patient Instructions Indication:Nonsmoker Start:07-Aug-2017 Instruction Type:Provider Instructions for Treatment How to access health informa tion online Indication:Diabetes mellitus type 2, uncontrolled, without complications Start:31-Jul-2017 Instruction Type:Patient Education How to access health informa tion online - Detail Indication:Diabetes mellitus type 2, uncontrolled, without complications Start:31-Jul-2017 Instruction Type:Patient Education Patient Instructions Indication:Diabetes mellitus type 2, uncontrolled, without complications Start:31-Jul-2017 Instruction Type:Provider Instructions for Treatment How to access health informa tion online Indication:Anxiety Start:22-Apr-2017 Instruction Type:Patient Education How to access health informa tion online - Detail Indication:Anxiety Start:22-Apr-2017 Instruction Type:Patient Education Patient Instructions Indication:Anxiety Start:22-Apr-2017 Instruction Type:Provider Instructions for Treatment How to access health informa tion online Indication:Diabetes mellitus type 2, uncontrolled, without complications Start:22-Apr-2017 Instruction Type:Patient Education How to access health informa tion online - Detail Indication:Diabetes mellitus type 2, uncontrolled, without complications Start:22-Apr-2017 Instruction Type:Patient Education Patient Instructions Indication:Diabetes mellitus type 2, uncontrolled, without complications Start:22-Apr-2017 Instruction Type:Provider Instructions for Treatment How to access health informa tion online Indication:Flu-like symptoms Start:17-Aug-2016 Instruction Type:Patient Education How to access health informa tion online - Detail Indication:Flu-like symptoms Start:17-Aug-2016 Instruction Type:Patient Education Patient Instructions Indication:Flu-like symptoms Start:17-Aug-2016 Instruction Type:Provider Instructions for Treatment How to access health informa tion online - Detail Indication:Diabetes mellitus type 2, uncontrolled, without complications Start:15-Sep-2015 Instruction Type:Patient Education How to access health informa tion online Indication:Diabetes mellitus type 2, uncontrolled, without complications Start:15-Sep-2015 Instruction Type:Patient Education Patient Instructions Indication:Diabetes mellitus type 2, uncontrolled, without complications Start:15-Sep-2015 Instruction Type:Provider Instructions for Treatment Patient Instructions Indication:Hypercholesteremia Start:03-Aug-2015 Instruction Type:Provider Instructions for Treatment How to access health informa tion online Indication:Diabetes mellitus type 2, uncontrolled, without complications Start:01-Jul-2015 Instruction Type:Patient Education How to access health informa tion online - Detail Indication:Diabetes mellitus type 2, uncontrolled, without complications Start:01-Jul-2015 Instruction Type:Patient Education Patient Instructions Indication:Diabetes mellitus type 2, uncontrolled, without complications Start:01-Jul-2015 Instruction Type:Provider Instructions for Treatment Patient Instructions Indication:Anxiety Start:16-Feb-2015 Instruction Type:Provider Instructions for Treatment How to access health informa tion online Indication:Anxiety Start:16-Feb-2015 Instruction Type:Patient Education How to access health informa tion online - Detail Indication:Anxiety Start:16-Feb-2015 Instruction Type:Patient Education Patient Instructions Indication:Anxiety Start:06-Aug-2012 Instruction Type:Provider Instructions for Treatment Patient Instructions Indication:Benign paroxysmal positional vertigo Start:30-Jun-2012 Instruction Type:Provider Instructions for Treatment Name Dates Details How to access health informa tion online Indication:Diabetes mellitus type 2, uncontrolled, without complications Start:06-May-2019 Instruction Type:Patient Education How to access health informa tion online - Detail Indication:Diabetes mellitus type 2, uncontrolled, without complications Start:06-May-2019 Instruction Type:Patient Education Patient Instructions Indication:Diabetes mellitus type 2, uncontrolled, without complications Start:06-May-2019 Instruction Type:Provider Instructions for Treatment How to access health informa tion online Indication:Diabetes mellitus type 2, uncontrolled, without complications Start:28-Jan-2019 Instruction Type:Patient Education How to access health informa tion online - Detail Indication:Diabetes mellitus type 2, uncontrolled, without complications Start:28-Jan-2019 Instruction Type:Patient Education Patient Instructions Indication:Diabetes mellitus type 2, uncontrolled, without complications Start:28-Jan-2019 Instruction Type:Provider Instructions for Treatment How to access health informa tion online Indication:BMI 29.0-29.9,adult Start:20-Aug-2018 Instruction Type:Patient Education How to access health informa tion online - Detail Indication:BMI 29.0-29.9,adult Start:20-Aug-2018 Instruction Type:Patient Education Patient Instructions Indication:BMI 29.0-29.9,adult Start:20-Aug-2018 Instruction Type:Provider Instructions for Treatment How to access health informa tion online Indication:Diabetes mellitus type 2, uncontrolled, without complications Start:02-Jul-2018 Instruction Type:Patient Education How to access health informa tion online - Detail Indication:Diabetes mellitus type 2, uncontrolled, without complications Start:02-Jul-2018 Instruction Type:Patient Education Patient Instructions Indication:Diabetes mellitus type 2, uncontrolled, without complications Start:02-Jul-2018 Instruction Type:Provider Instructions for Treatment Patient Instructions Indication:Low back pain, episodic Start:30-Apr-2018 Instruction Type:Provider Instructions for Treatment How to access health informa tion online Indication:Rash Start:26-Mar-2018 Instruction Type:Patient Education How to access health informa tion online - Detail Indication:Rash Start:26-Mar-2018 Instruction Type:Patient Education Patient Instructions Indication:Rash Start:26-Mar-2018 Instruction Type:Provider Instructions for Treatment How to access health informa tion online Indication:Nonsmoker Start:21-Mar-2018 Instruction Type:Patient Education How to access health informa tion online - Detail Indication:Nonsmoker Start:21-Mar-2018 Instruction Type:Patient Education Patient Instructions Indication:Nonsmoker Start:21-Mar-2018 Instruction Type:Provider Instructions for Treatment How to access health informa tion online Indication:Nonsmoker Start:05-Mar-2018 Instruction Type:Patient Education How to access health informa tion online - Detail Indication:Nonsmoker Start:05-Mar-2018 Instruction Type:Patient Education Patient Instructions Indication:Nonsmoker Start:05-Mar-2018 Instruction Type:Provider Instructions for Treatment How to access health informa tion online Indication:BMI 28.0-28.9,adult Start:09-Jan-2018 Instruction Type:Patient Education How to access health informa tion online - Detail Indication:BMI 28.0-28.9,adult Start:09-Jan-2018 Instruction Type:Patient Education Patient Instructions Indication:BMI 28.0-28.9,adult Start:09-Jan-2018 Instruction Type:Provider Instructions for Treatment How to access health informa tion online Indication:Diabetes mellitus type 2, uncontrolled, without complications Start:02-Dec-2017 Instruction Type:Patient Education How to access health informa tion online - Detail Indication:Diabetes mellitus type 2, uncontrolled, without complications Start:02-Dec-2017 Instruction Type:Patient Education Patient Instructions Indication:Diabetes mellitus type 2, uncontrolled, without complications Start:02-Dec-2017 Instruction Type:Provider Instructions for Treatment How to access health informa tion online Indication:Nonsmoker Start:05-Nov-2017 Instruction Type:Patient Education How to access health informa tion online - Detail Indication:Nonsmoker Start:05-Nov-2017 Instruction Type:Patient Education Patient Instructions Indication:Nonsmoker Start:05-Nov-2017 Instruction Type:Provider Instructions for Treatment Patient Instructions Indication:Chest congestion Start:20-Sep-2017 Instruction Type:Provider Instructions for Treatment How to access health informa tion online Indication:Chest congestion Start:20-Sep-2017 Instruction Type:Patient Education How to access health informa tion online - Detail Indication:Chest congestion Start:20-Sep-2017 Instruction Type:Patient Education How to access health informa tion online Indication:Nonsmoker Start:07-Aug-2017 Instruction Type:Patient Education How to access health informa tion online - Detail Indication:Nonsmoker Start:07-Aug-2017 Instruction Type:Patient Education Patient Instructions Indication:Nonsmoker Start:07-Aug-2017 Instruction Type:Provider Instructions for Treatment How to access health informa tion online Indication:Diabetes mellitus type 2, uncontrolled, without complications Start:31-Jul-2017 Instruction Type:Patient Education How to access health informa tion online - Detail Indication:Diabetes mellitus type 2, uncontrolled, without complications Start:31-Jul-2017 Instruction Type:Patient Education Patient Instructions Indication:Diabetes mellitus type 2, uncontrolled, without complications Start:31-Jul-2017 Instruction Type:Provider Instructions for Treatment How to access health informa tion online Indication:Anxiety Start:22-Apr-2017 Instruction Type:Patient Education How to access health informa tion online - Detail Indication:Anxiety Start:22-Apr-2017 Instruction Type:Patient Education Patient Instructions Indication:Anxiety Start:22-Apr-2017 Instruction Type:Provider Instructions for Treatment How to access health informa tion online Indication:Diabetes mellitus type 2, uncontrolled, without complications Start:22-Apr-2017 Instruction Type:Patient Education How to access health informa tion online - Detail Indication:Diabetes mellitus type 2, uncontrolled, without complications Start:22-Apr-2017 Instruction Type:Patient Education Patient Instructions Indication:Diabetes mellitus type 2, uncontrolled, without complications Start:22-Apr-2017 Instruction Type:Provider Instructions for Treatment How to access health informa tion online Indication:Flu-like symptoms Start:17-Aug-2016 Instruction Type:Patient Education How to access health informa tion online - Detail Indication:Flu-like symptoms Start:17-Aug-2016 Instruction Type:Patient Education Patient Instructions Indication:Flu-like symptoms Start:17-Aug-2016 Instruction Type:Provider Instructions for Treatment How to access health informa tion online - Detail Indication:Diabetes mellitus type 2, uncontrolled, without complications Start:15-Sep-2015 Instruction Type:Patient Education How to access health informa tion online Indication:Diabetes mellitus type 2, uncontrolled, without complications Start:15-Sep-2015 Instruction Type:Patient Education Patient Instructions Indication:Diabetes mellitus type 2, uncontrolled, without complications Start:15-Sep-2015 Instruction Type:Provider Instructions for Treatment Patient Instructions Indication:Hypercholesteremia Start:03-Aug-2015 Instruction Type:Provider Instructions for Treatment How to access health informa tion online Indication:Diabetes mellitus type 2, uncontrolled, without complications Start:01-Jul-2015 Instruction Type:Patient Education How to access health informa tion online - Detail Indication:Diabetes mellitus type 2, uncontrolled, without complications Start:01-Jul-2015 Instruction Type:Patient Education Patient Instructions Indication:Diabetes mellitus type 2, uncontrolled, without complications Start:01-Jul-2015 Instruction Type:Provider Instructions for Treatment Patient Instructions Indication:Anxiety Start:16-Feb-2015 Instruction Type:Provider Instructions for Treatment How to access health informa tion online Indication:Anxiety Start:16-Feb-2015 Instruction Type:Patient Education How to access health informa tion online - Detail Indication:Anxiety Start:16-Feb-2015 Instruction Type:Patient Education Patient Instructions Indication:Anxiety Start:06-Aug-2012 Instruction Type:Provider Instructions for Treatment Patient Instructions Indication:Benign paroxysmal positional vertigo Start:30-Jun-2012 Instruction Type:Provider Instructions for Treatment Name Dates Details BMI 29.0-29.9,adult : How to access health information online Indication:BMI 29.0-29.9,adult BMI 29.0-29.9,adult : How to access health information online - Detail Indication:BMI 29.0-29.9,adult BMI 29.0-29.9,adult : Patien t Instructions Indication:BMI 29.0-29.9,adult Diabetes mellitus type 2, un controlled, without complications : How to access health information online Indication:Diabetes mellitus type 2, uncontrolled, without complications Diabetes mellitus type 2, un controlled, without complications : How to access health information online - Detail Indication:Diabetes mellitus type 2, uncontrolled, without complications Diabetes mellitus type 2, un controlled, without complications : Patient Instructions Indication:Diabetes mellitus type 2, uncontrolled, without complications Low back pain, episodic : Jacob trinidadnt Instructions Indication:Low back pain, episodic Rash : How to access health information online Indication:Rash Rash : How to access health information online - Detail Indication:Rash Rash : Patient Instructions Indication:Rash Nonsmoker : How to access he alth information online Indication:Nonsmoker Nonsmoker : How to access he alth information online - Detail Indication:Nonsmoker Nonsmoker : Patient Instruct ions Indication:Nonsmoker BMI 28.0-28.9,adult : How to access health information online Indication:BMI 28.0-28.9,adult BMI 28.0-28.9,adult : How to access health information online - Detail Indication:BMI 28.0-28.9,adult BMI 28.0-28.9,adult : Patien t Instructions Indication:BMI 28.0-28.9,adult Chest congestion : Patient I nstructions Indication:Chest congestion Chest congestion : How to ac cess health information online Indication:Chest congestion Chest congestion : How to ac cess health information online - Detail Indication:Chest congestion Anxiety : How to access heal th information online Indication:Anxiety Anxiety : How to access heal th information online - Detail Indication:Anxiety Anxiety : Patient Instructio ns Indication:Anxiety Flu-like symptoms : How to a ccess health information online Indication:Flu-like symptoms Flu-like symptoms : How to a ccess health information online - Detail Indication:Flu-like symptoms Flu-like symptoms : Patient Instructions Indication:Flu-like symptoms Hypercholesteremia : Patient Instructions Indication:Hypercholesteremia Benign paroxysmal positional vertigo : Patient Instructions Indication:Benign paroxysmal positional vertigo Name Dates Details How to access health informa tion online Indication:Diabetes mellitus type 2, uncontrolled, without complications Start:28-Jan-2019 Instruction Type:Patient Education How to access health informa tion online - Detail Indication:Diabetes mellitus type 2, uncontrolled, without complications Start:28-Jan-2019 Instruction Type:Patient Education Patient Instructions Indication:Diabetes mellitus type 2, uncontrolled, without complications Start:28-Jan-2019 Instruction Type:Provider Instructions for Treatment How to access health informa tion online Indication:BMI 29.0-29.9,adult Start:20-Aug-2018 Instruction Type:Patient Education How to access health informa tion online - Detail Indication:BMI 29.0-29.9,adult Start:20-Aug-2018 Instruction Type:Patient Education Patient Instructions Indication:BMI 29.0-29.9,adult Start:20-Aug-2018 Instruction Type:Provider Instructions for Treatment How to access health informa tion online Indication:Diabetes mellitus type 2, uncontrolled, without complications Start:02-Jul-2018 Instruction Type:Patient Education How to access health informa tion online - Detail Indication:Diabetes mellitus type 2, uncontrolled, without complications Start:02-Jul-2018 Instruction Type:Patient Education Patient Instructions Indication:Diabetes mellitus type 2, uncontrolled, without complications Start:02-Jul-2018 Instruction Type:Provider Instructions for Treatment Patient Instructions Indication:Low back pain, episodic Start:30-Apr-2018 Instruction Type:Provider Instructions for Treatment How to access health informa tion online Indication:Rash Start:26-Mar-2018 Instruction Type:Patient Education How to access health informa tion online - Detail Indication:Rash Start:26-Mar-2018 Instruction Type:Patient Education Patient Instructions Indication:Rash Start:26-Mar-2018 Instruction Type:Provider Instructions for Treatment How to access health informa tion online Indication:Nonsmoker Start:21-Mar-2018 Instruction Type:Patient Education How to access health informa tion online - Detail Indication:Nonsmoker Start:21-Mar-2018 Instruction Type:Patient Education Patient Instructions Indication:Nonsmoker Start:21-Mar-2018 Instruction Type:Provider Instructions for Treatment How to access health informa tion online Indication:Nonsmoker Start:05-Mar-2018 Instruction Type:Patient Education How to access health informa tion online - Detail Indication:Nonsmoker Start:05-Mar-2018 Instruction Type:Patient Education Patient Instructions Indication:Nonsmoker Start:05-Mar-2018 Instruction Type:Provider Instructions for Treatment How to access health informa tion online Indication:BMI 28.0-28.9,adult Start:09-Jan-2018 Instruction Type:Patient Education How to access health informa tion online - Detail Indication:BMI 28.0-28.9,adult Start:09-Jan-2018 Instruction Type:Patient Education Patient Instructions Indication:BMI 28.0-28.9,adult Start:09-Jan-2018 Instruction Type:Provider Instructions for Treatment How to access health informa tion online Indication:Diabetes mellitus type 2, uncontrolled, without complications Start:02-Dec-2017 Instruction Type:Patient Education How to access health informa tion online - Detail Indication:Diabetes mellitus type 2, uncontrolled, without complications Start:02-Dec-2017 Instruction Type:Patient Education Patient Instructions Indication:Diabetes mellitus type 2, uncontrolled, without complications Start:02-Dec-2017 Instruction Type:Provider Instructions for Treatment How to access health informa tion online Indication:Nonsmoker Start:05-Nov-2017 Instruction Type:Patient Education How to access health informa tion online - Detail Indication:Nonsmoker Start:05-Nov-2017 Instruction Type:Patient Education Patient Instructions Indication:Nonsmoker Start:05-Nov-2017 Instruction Type:Provider Instructions for Treatment Patient Instructions Indication:Chest congestion Start:20-Sep-2017 Instruction Type:Provider Instructions for Treatment How to access health informa tion online Indication:Chest congestion Start:20-Sep-2017 Instruction Type:Patient Education How to access health informa tion online - Detail Indication:Chest congestion Start:20-Sep-2017 Instruction Type:Patient Education How to access health informa tion online Indication:Nonsmoker Start:07-Aug-2017 Instruction Type:Patient Education How to access health informa tion online - Detail Indication:Nonsmoker Start:07-Aug-2017 Instruction Type:Patient Education Patient Instructions Indication:Nonsmoker Start:07-Aug-2017 Instruction Type:Provider Instructions for Treatment How to access health informa tion online Indication:Diabetes mellitus type 2, uncontrolled, without complications Start:31-Jul-2017 Instruction Type:Patient Education How to access health informa tion online - Detail Indication:Diabetes mellitus type 2, uncontrolled, without complications Start:31-Jul-2017 Instruction Type:Patient Education Patient Instructions Indication:Diabetes mellitus type 2, uncontrolled, without complications Start:31-Jul-2017 Instruction Type:Provider Instructions for Treatment How to access health informa tion online Indication:Anxiety Start:22-Apr-2017 Instruction Type:Patient Education How to access health informa tion online - Detail Indication:Anxiety Start:22-Apr-2017 Instruction Type:Patient Education Patient Instructions Indication:Anxiety Start:22-Apr-2017 Instruction Type:Provider Instructions for Treatment How to access health informa tion online Indication:Diabetes mellitus type 2, uncontrolled, without complications Start:22-Apr-2017 Instruction Type:Patient Education How to access health informa tion online - Detail Indication:Diabetes mellitus type 2, uncontrolled, without complications Start:22-Apr-2017 Instruction Type:Patient Education Patient Instructions Indication:Diabetes mellitus type 2, uncontrolled, without complications Start:22-Apr-2017 Instruction Type:Provider Instructions for Treatment How to access health informa tion online Indication:Flu-like symptoms Start:17-Aug-2016 Instruction Type:Patient Education How to access health informa tion online - Detail Indication:Flu-like symptoms Start:17-Aug-2016 Instruction Type:Patient Education Patient Instructions Indication:Flu-like symptoms Start:17-Aug-2016 Instruction Type:Provider Instructions for Treatment How to access health informa tion online - Detail Indication:Diabetes mellitus type 2, uncontrolled, without complications Start:15-Sep-2015 Instruction Type:Patient Education How to access health informa tion online Indication:Diabetes mellitus type 2, uncontrolled, without complications Start:15-Sep-2015 Instruction Type:Patient Education Patient Instructions Indication:Diabetes mellitus type 2, uncontrolled, without complications Start:15-Sep-2015 Instruction Type:Provider Instructions for Treatment Patient Instructions Indication:Hypercholesteremia Start:03-Aug-2015 Instruction Type:Provider Instructions for Treatment How to access health informa tion online Indication:Diabetes mellitus type 2, uncontrolled, without complications Start:01-Jul-2015 Instruction Type:Patient Education How to access health informa tion online - Detail Indication:Diabetes mellitus type 2, uncontrolled, without complications Start:01-Jul-2015 Instruction Type:Patient Education Patient Instructions Indication:Diabetes mellitus type 2, uncontrolled, without complications Start:01-Jul-2015 Instruction Type:Provider Instructions for Treatment Patient Instructions Indication:Anxiety Start:16-Feb-2015 Instruction Type:Provider Instructions for Treatment How to access health informa tion online Indication:Anxiety Start:16-Feb-2015 Instruction Type:Patient Education How to access health informa tion online - Detail Indication:Anxiety Start:16-Feb-2015 Instruction Type:Patient Education Patient Instructions Indication:Anxiety Start:06-Aug-2012 Instruction Type:Provider Instructions for Treatment Patient Instructions Indication:Benign paroxysmal positional vertigo Start:30-Jun-2012 Instruction Type:Provider Instructions for Treatment Name Dates Details How to access health informa tion online Indication:Nonsmoker Start:24-Aug-2020 Instruction Type:Patient Education How to access health informa tion online - Detail Indication:Nonsmoker Start:24-Aug-2020 Instruction Type:Patient Education Patient Instructions Indication:Nonsmoker Start:24-Aug-2020 Instruction Type:Provider Instructions for Treatment How to access health informa tion online Indication:Nonsmoker Start:28-Apr-2020 Instruction Type:Patient Education How to access health informa tion online - Detail Indication:Nonsmoker Start:28-Apr-2020 Instruction Type:Patient Education Patient Instructions Indication:Nonsmoker Start:28-Apr-2020 Instruction Type:Provider Instructions for Treatment How to access health informa tion online Indication:Nonsmoker Start:12-Feb-2020 Instruction Type:Patient Education How to access health informa tion online - Detail Indication:Nonsmoker Start:12-Feb-2020 Instruction Type:Patient Education Patient Instructions Indication:Nonsmoker Start:12-Feb-2020 Instruction Type:Provider Instructions for Treatment How to access health informa tion online Indication:BMI 28.0-28.9,adult Start:21-Jan-2020 Instruction Type:Patient Education How to access health informa tion online - Detail Indication:BMI 28.0-28.9,adult Start:21-Jan-2020 Instruction Type:Patient Education Patient Instructions Indication:BMI 28.0-28.9,adult Start:21-Jan-2020 Instruction Type:Provider Instructions for Treatment How to access health informa tion online Indication:Diabetes mellitus type 2, uncontrolled, without complications Start:06-May-2019 Instruction Type:Patient Education How to access health informa tion online - Detail Indication:Diabetes mellitus type 2, uncontrolled, without complications Start:06-May-2019 Instruction Type:Patient Education Patient Instructions Indication:Diabetes mellitus type 2, uncontrolled, without complications Start:06-May-2019 Instruction Type:Provider Instructions for Treatment How to access health informa tion online Indication:Diabetes mellitus type 2, uncontrolled, without complications Start:28-Jan-2019 Instruction Type:Patient Education How to access health informa tion online - Detail Indication:Diabetes mellitus type 2, uncontrolled, without complications Start:28-Jan-2019 Instruction Type:Patient Education Patient Instructions Indication:Diabetes mellitus type 2, uncontrolled, without complications Start:28-Jan-2019 Instruction Type:Provider Instructions for Treatment How to access health informa tion online Indication:BMI 29.0-29.9,adult Start:20-Aug-2018 Instruction Type:Patient Education How to access health informa tion online - Detail Indication:BMI 29.0-29.9,adult Start:20-Aug-2018 Instruction Type:Patient Education Patient Instructions Indication:BMI 29.0-29.9,adult Start:20-Aug-2018 Instruction Type:Provider Instructions for Treatment How to access health informa tion online Indication:Diabetes mellitus type 2, uncontrolled, without complications Start:02-Jul-2018 Instruction Type:Patient Education How to access health informa tion online - Detail Indication:Diabetes mellitus type 2, uncontrolled, without complications Start:02-Jul-2018 Instruction Type:Patient Education Patient Instructions Indication:Diabetes mellitus type 2, uncontrolled, without complications Start:02-Jul-2018 Instruction Type:Provider Instructions for Treatment Patient Instructions Indication:Low back pain, episodic Start:30-Apr-2018 Instruction Type:Provider Instructions for Treatment How to access health informa tion online Indication:Rash Start:26-Mar-2018 Instruction Type:Patient Education How to access health informa tion online - Detail Indication:Rash Start:26-Mar-2018 Instruction Type:Patient Education Patient Instructions Indication:Rash Start:26-Mar-2018 Instruction Type:Provider Instructions for Treatment How to access health informa tion online Indication:Nonsmoker Start:21-Mar-2018 Instruction Type:Patient Education How to access health informa tion online - Detail Indication:Nonsmoker Start:21-Mar-2018 Instruction Type:Patient Education Patient Instructions Indication:Nonsmoker Start:21-Mar-2018 Instruction Type:Provider Instructions for Treatment How to access health informa tion online Indication:Nonsmoker Start:05-Mar-2018 Instruction Type:Patient Education How to access health informa tion online - Detail Indication:Nonsmoker Start:05-Mar-2018 Instruction Type:Patient Education Patient Instructions Indication:Nonsmoker Start:05-Mar-2018 Instruction Type:Provider Instructions for Treatment How to access health informa tion online Indication:BMI 28.0-28.9,adult Start:09-Jan-2018 Instruction Type:Patient Education How to access health informa tion online - Detail Indication:BMI 28.0-28.9,adult Start:09-Jan-2018 Instruction Type:Patient Education Patient Instructions Indication:BMI 28.0-28.9,adult Start:09-Jan-2018 Instruction Type:Provider Instructions for Treatment How to access health informa tion online Indication:Diabetes mellitus type 2, uncontrolled, without complications Start:02-Dec-2017 Instruction Type:Patient Education How to access health informa tion online - Detail Indication:Diabetes mellitus type 2, uncontrolled, without complications Start:02-Dec-2017 Instruction Type:Patient Education Patient Instructions Indication:Diabetes mellitus type 2, uncontrolled, without complications Start:02-Dec-2017 Instruction Type:Provider Instructions for Treatment How to access health informa tion online Indication:Nonsmoker Start:05-Nov-2017 Instruction Type:Patient Education How to access health informa tion online - Detail Indication:Nonsmoker Start:05-Nov-2017 Instruction Type:Patient Education Patient Instructions Indication:Nonsmoker Start:05-Nov-2017 Instruction Type:Provider Instructions for Treatment Patient Instructions Indication:Chest congestion Start:20-Sep-2017 Instruction Type:Provider Instructions for Treatment How to access health informa tion online Indication:Chest congestion Start:20-Sep-2017 Instruction Type:Patient Education How to access health informa tion online - Detail Indication:Chest congestion Start:20-Sep-2017 Instruction Type:Patient Education How to access health informa tion online Indication:Nonsmoker Start:07-Aug-2017 Instruction Type:Patient Education How to access health informa tion online - Detail Indication:Nonsmoker Start:07-Aug-2017 Instruction Type:Patient Education Patient Instructions Indication:Nonsmoker Start:07-Aug-2017 Instruction Type:Provider Instructions for Treatment How to access health informa tion online Indication:Diabetes mellitus type 2, uncontrolled, without complications Start:31-Jul-2017 Instruction Type:Patient Education How to access health informa tion online - Detail Indication:Diabetes mellitus type 2, uncontrolled, without complications Start:31-Jul-2017 Instruction Type:Patient Education Patient Instructions Indication:Diabetes mellitus type 2, uncontrolled, without complications Start:31-Jul-2017 Instruction Type:Provider Instructions for Treatment How to access health informa tion online Indication:Anxiety Start:22-Apr-2017 Instruction Type:Patient Education How to access health informa tion online - Detail Indication:Anxiety Start:22-Apr-2017 Instruction Type:Patient Education Patient Instructions Indication:Anxiety Start:22-Apr-2017 Instruction Type:Provider Instructions for Treatment How to access health informa tion online Indication:Diabetes mellitus type 2, uncontrolled, without complications Start:22-Apr-2017 Instruction Type:Patient Education How to access health informa tion online - Detail Indication:Diabetes mellitus type 2, uncontrolled, without complications Start:22-Apr-2017 Instruction Type:Patient Education Patient Instructions Indication:Diabetes mellitus type 2, uncontrolled, without complications Start:22-Apr-2017 Instruction Type:Provider Instructions for Treatment How to access health informa tion online Indication:Flu-like symptoms Start:17-Aug-2016 Instruction Type:Patient Education How to access health informa tion online - Detail Indication:Flu-like symptoms Start:17-Aug-2016 Instruction Type:Patient Education Patient Instructions Indication:Flu-like symptoms Start:17-Aug-2016 Instruction Type:Provider Instructions for Treatment How to access health informa tion online - Detail Indication:Diabetes mellitus type 2, uncontrolled, without complications Start:15-Sep-2015 Instruction Type:Patient Education How to access health informa tion online Indication:Diabetes mellitus type 2, uncontrolled, without complications Start:15-Sep-2015 Instruction Type:Patient Education Patient Instructions Indication:Diabetes mellitus type 2, uncontrolled, without complications Start:15-Sep-2015 Instruction Type:Provider Instructions for Treatment Patient Instructions Indication:Hypercholesteremia Start:03-Aug-2015 Instruction Type:Provider Instructions for Treatment How to access health informa tion online Indication:Diabetes mellitus type 2, uncontrolled, without complications Start:01-Jul-2015 Instruction Type:Patient Education How to access health informa tion online - Detail Indication:Diabetes mellitus type 2, uncontrolled, without complications Start:01-Jul-2015 Instruction Type:Patient Education Patient Instructions Indication:Diabetes mellitus type 2, uncontrolled, without complications Start:01-Jul-2015 Instruction Type:Provider Instructions for Treatment Patient Instructions Indication:Anxiety Start:16-Feb-2015 Instruction Type:Provider Instructions for Treatment How to access health informa tion online Indication:Anxiety Start:16-Feb-2015 Instruction Type:Patient Education How to access health informa tion online - Detail Indication:Anxiety Start:16-Feb-2015 Instruction Type:Patient Education Patient Instructions Indication:Anxiety Start:06-Aug-2012 Instruction Type:Provider Instructions for Treatment Patient Instructions Indication:Benign paroxysmal positional vertigo Start:30-Jun-2012 Instruction Type:Provider Instructions for Treatment Name Dates Details BMI 29.0-29.9,adult : How to access health information online Indication:BMI 29.0-29.9,adult BMI 29.0-29.9,adult : How to access health information online - Detail Indication:BMI 29.0-29.9,adult BMI 29.0-29.9,adult : Patien t Instructions Indication:BMI 29.0-29.9,adult Diabetes mellitus type 2, un controlled, without complications : How to access health information online Indication:Diabetes mellitus type 2, uncontrolled, without complications Diabetes mellitus type 2, un controlled, without complications : How to access health information online - Detail Indication:Diabetes mellitus type 2, uncontrolled, without complications Diabetes mellitus type 2, un controlled, without complications : Patient Instructions Indication:Diabetes mellitus type 2, uncontrolled, without complications Low back pain, episodic : Pa selena Instructions Indication:Low back pain, episodic Rash : How to access health information online Indication:Rash Rash : How to access health information online - Detail Indication:Rash Rash : Patient Instructions Indication:Rash Nonsmoker : How to access he alth information online Indication:Nonsmoker Nonsmoker : How to access he alth information online - Detail Indication:Nonsmoker Nonsmoker : Patient Instruct ions Indication:Nonsmoker BMI 28.0-28.9,adult : How to access health information online Indication:BMI 28.0-28.9,adult BMI 28.0-28.9,adult : How to access health information online - Detail Indication:BMI 28.0-28.9,adult BMI 28.0-28.9,adult : Patien t Instructions Indication:BMI 28.0-28.9,adult Chest congestion : Patient I nstructions Indication:Chest congestion Chest congestion : How to ac cess health information online Indication:Chest congestion Chest congestion : How to ac cess health information online - Detail Indication:Chest congestion Anxiety : How to access heal th information online Indication:Anxiety Anxiety : How to access heal th information online - Detail Indication:Anxiety Anxiety : Patient Instructio ns Indication:Anxiety Flu-like symptoms : How to a ccess health information online Indication:Flu-like symptoms Flu-like symptoms : How to a ccess health information online - Detail Indication:Flu-like symptoms Flu-like symptoms : Patient Instructions Indication:Flu-like symptoms Hypercholesteremia : Patient Instructions Indication:Hypercholesteremia Benign paroxysmal positional vertigo : Patient Instructions Indication:Benign paroxysmal positional vertigo Summary Purpose Family History Relationship Condition Age at Onset Recorded Date/T marcos sister Arthritis Unknown Malignant neoplasm of colon 55 mother Malignant neoplasm of colon 72 Diabetes mellitus Unknown Myocardial infarction 72 aunt Malignant neoplasm of uterus Unknown No Family History Records Found Advance Directives No Advanced Directives Records Found Advance Directive Response Recorded Date/ Time Living Will Yes March 02, 2021 7 :19pm Power of Sectional Belt [employer] Assembler No March 02, 2021 7:19pm Advance Directive Response Recorded Date/ Time Living Will No February 23, 2023 1 2:58pm Power of Sectional Belt Mold Assembler No February 23, 2023 12:58pm Advance Directive Response Recorded Date/ Time Living Will No February 23, 2023 1 1:58am Power of Sectional Belt Mold Assembler No February 23, 2023 11:58am Chief Complaint and Reason for Visit Chief Complaint 1 M FU 2 M FU Reason for Visit Benign hypertension Diabetes Obesity (BMI 30.0-34.9) Vaginal itching Cardiac murmur Benign hypertension Diabetes Obesity (BMI 30.0-34.9) Chief Complaint RIGHT SIDED PNEUMONI A, HYPOXIA right sided pneumonia, hypoxia right sided pneumonia, hypoxia right sided pneumonia, hypoxia RIGHT SIDED PNEUMONIA, HYPOXIA Reason for Visit Acute bronchospasm Acute respiratory failure with hypoxia High cholesterol Right lower lobe pneumonia Benign hypertension Obesity (BMI 30.0-34.9) Chief Complaint RIGHT SIDED PNEUMONI A, HYPOXIA right sided pneumonia, hypoxia right sided pneumonia, hypoxia right sided pneumonia, hypoxia RIGHT SIDED PNEUMONIA, HYPOXIA 3 M FU PNEUMONIA, HYPOXEMIA, DYSPNEA Reason for Visit High cholesterol Benign hypertension Obesity (BMI 30.0-34.9) Acute bronchospasm Acute respiratory failure with hypoxia Right lower lobe pneumonia Benign hypertension Cardiac murmur Diabetes Hypothyroid Obesity (BMI 30.0-34.9) Vitamin D deficiency Chief Complaint PNEUMONIA, HYPOXEMIA , DYSPNEA Shortness of breath 5 M FU, RS 09/20 Asymptomatic menopausal state Reason for Visit Benign hypertension Cardiac murmur Diabetes Obesity (BMI 30.0-34.9) Chief Complaint Shortness of breath 5 M FU, RS 09/20 Asymptomatic menopausal state HEART MURMUR Reason for Visit Benign hypertension Cardiac murmur Diabetes Obesity (BMI 30.0-34.9) Chief Complaint 5 M FU, RS 09/20 Asymptomatic menopausal state HEART MURMUR 3 M FU Reclast Reason for Visit Benign hypertension Cardiac murmur Diabetes Obesity (BMI 30.0-34.9) Benign hypertension Diabetes Obesity (BMI 30.0-34.9) Osteoporosis Chief Complaint Admit Date 4 M FU November 09, 2024 9:20am E-ORDER November 09, 2024 10:49am Reason for Visit Admit Date Benign hypertension November 09, 2024 9:20am Diabetes November 09, 2024 9:20am High cholesterol November 09, 2024 9:20am Hypothyroid November 09, 2024 9:20am Obesity (BMI 30.0-34.9) November 09 9:20am Osteoporosis November 09, 2024 9:20am Chief Complaint Admit Date 4 M FU November 09, 2024 9:20am E-ORDER November 09, 2024 10:49am 3 M FU February 08, 2025 9:41a m RECLAST February 11, 2025 9:25a m Reason for Visit Admit Date Benign hypertension November 09, 2024 9:20am Diabetes November 09, 2024 9:20am High cholesterol November 09, 2024 9:20am Hypothyroid November 09, 2024 9:20am Obesity (BMI 30.0-34.9) November 09 9:20am Osteoporosis November 09, 2024 9:20am Benign hypertension February 08, 2025 9:41a m Diabetes February 08, 2025 9:41a m Hypothyroid February 08, 2025 9:41a m Mixed hyperlipidemia February 08, 2025 9:41 am Osteoporosis February 08, 2025 9:41a m Overweight (BMI 25.0-29.9) February 08 9:41am Vitamin D deficiency February 08, 2025 9:41 am Chief Complaint Admit Date 3 M FU February 08, 2025 9:41a m RECLAST February 11, 2025 9:25a m HYPOXEMIA March 22, 2025 1:30 pm Reason for Visit Admit Date Benign hypertension February 08, 2025 9:41a m Diabetes February 08, 2025 9:41a m Hypothyroid February 08, 2025 9:41a m Mixed hyperlipidemia February 08, 2025 9:41 am Osteoporosis February 08, 2025 9:41a m Overweight (BMI 25.0-29.9) February 08 9:41am Vitamin D deficiency February 08, 2025 9:41 am Chief Complaint Admit Date HYPOXEMIA March 22, 2025 1:30 pm 4 M FU, RS 05/10June 14, 2025 11:22am Additional Source Comments INFORMATION SOURCE (unrecogn ized section and content) DATE CREATED AUTHOR 11/01/2021 [facility] DATE CREATED AUTHOR AUTHOR'S ORGANIZ ATION 01/25/2023 [facility] DATE CREATED AUTHOR AUTHOR'S ORGANIZ ATION 06/14/2025 [facility] Goals (unrecognized section and content) Goals may be documented in a n alternate sectionGoals may be documented in an alternate sectionGoals may be documented in an alternate sectionGoals may be documented in an alternate sectionGoals may be documented in an alternate sectionGoals may be documented in an alternate sectionGoals may be documented in an alternate sectionGoals may be documented in an alternate sectionGoals may be documented in an alternate sectionGoals may be documented in an alternate sectionGoals may be documented in an alternate section Care Teams (unrecognized sec tion and content) Team Status: Active Member Role Status Dates Dr. Madelin Alberto DO Family Provider Active Dr. Madelin Alberto , DO Primary Care Provider Active Team Status: Active Member Role Status Dates Dr. Madelin Alberto DO Primary Care Provider Active Dr. Brando Weiss MD Emergency Provider Active Dr. Misha Rosario , DO Admit Provider, Attending Provider, Other Provider Active Team Status: Active Member Role Status Dates Dr. Madelin Alberto , DO Primary Care Provider Active Dr. Brando Weiss MD Emergency Provider Active Dr. Misha Rosairo , DO Admit Provider, Other Provide r Active Dr. Simone Benitez MD Attending Provider, Other Provid er Active Team Status: Inactive Member Role Status Dates Dr. Madelin Alberto DO Primary Care Provider Active Dr. Brando Weiss MD Emergency Provider Active Dr. Misha Rosario , DO Admit Provider, Other Provide r Active Dr. Simone Benitez MD Attending Provider Active Team Status: Inactive Member Role Status Dates Dr. Madelin Alberto , DO Primary Care Provider, Referr ing Provider Active JOVI Morfin Attending Provider Active Team Status: Inactive Member Role Status Dates Dr. Madelin Alberto , DO Primary Care Provider Active Dr. Lai Mancia MD Attending Provider, Referrin g Provider Active Team Status: Inactive Member Role Status Dates Dr. Madelin Alberto , DO Primary Care Pr ovider, Attending Provider, Referring Provider Active Team Status: Active Member Role Status Dates Dr. Madelin Alberto DO Primary Care Provider Active Dr. Jesse Knutson MD Attending Provider Active Team Status: Inactive Member Role Status Dates Dr. Lai Mancia MD Attending Provider, Referrin g Provider Active Dr. Madelin Alberto DO Primary Care Provider Active Team Status: Active Member Role Status Dates Dr. Madelin Alberto DO Primary Care Pr ovider, Attending Provider, Referring Provider Active Team Status: Inactive Member Role Status Dates Dr. Madelin Alberto DO Primary Care Provider Active Bernarda Akbar HAM SAWYER-C Attending Provider, Referring Pr ovider Active Team Status: Inactive Member Role Status Dates Dr. Madelin Alberto DO Primary Care Provider Active Start: November 09, 2024 End: November 09, 2024 Dr. Madelin Alberto DO Referring Provider Active Start: November 09, 2024 End: November 09, 2024 Bernarda Akbar NP-C Attending Provider Active Start: November 09, 2024 End: November 09, 2024 Team Status: Inactive Member Role Status Dates Dr. Madelin Alberto DO Primary Care Provider Active Start: November 09, 2024 End: November 09, 2024 Bernarda Akbar HAM SAWYER-C Attending Provider Active Start: November 09, 2024 End: November 09, 2024 Bernarda Akbar NP-C Referring Provider Active Start: November 09, 2024 End: November 09, 2024 Team Status: Inactive Member Role Status Dates Dr. Madelin Alberto DO Primary Care Provider Active Start: January 22, 2025 End: January 22, 2025 Dr. Madelin Alberto DO Attending Provider Active Start: January 22, 2025 End: January 22, 2025 Dr. Madelin Alberto DO Referring Provider Active Start: January 22, 2025 End: January 22, 2025 Team Status: Active Member Role Status Dates Dr. Madelin Alberto DO Primary Care Provider Active Team Status: Inactive Member Role Status Dates Dr. Madelin Alberto DO Primary Care Provider Active Start: February 08, 2025 End: February 08, 2025 Dr. Madelin Alberto DO Referring Provider Active Start: February 08, 2025 End: February 08, 2025 Bernarda Akbar NP-C Attending Provider Active Start: February 08, 2025 End: February 08, 2025 Team Status: Inactive Member Role Status Dates Dr. Madelin Alberto DO Primary Care Provider Active Start: February 11, 2025 End: February 11, 2025 Dr. Jf Perla MD Attending Provider Active Sta rt: February 11, 2025 End: February 11, 2025 Dr. Jf Perla MD Referring Provider Active Sta rt: February 11, 2025 End: February 11, 2025 Team Status: Inactive Member Role Status Dates Dr. Madelin Alberto DO Primary Care Provider Active Start: March 02, 2025 End: March 02, 2025 Dr. Lai Mancia MD Attending Provider Active Start: March 02, 2025 End: March 02, 2025 Dr. Lai Mancia MD Referring Provider Active Start: March 02, 2025 End: March 02, 2025 Team Status: Active Member Role/Relationship Status Dates Dr. Madelin Alberto DO Primary Care Provider Active Team Status: Inactive Member Role/Relationship Status Dates Dr. Madelin Alberto DO Primary Care Provider Active Start: January 22, 2025 End: January 22, 2025 Dr. Madelin Alberto DO Attending Provider Active Start: January 22, 2025 End: January 22, 2025 Dr. Madelin Alberto DO Referring Provider Active Start: January 22, 2025 End: January 22, 2025 Team Status: Inactive Member Role/Relationship Status Dates Dr. Madelin Alberto DO Primary Care Provider Active Start: February 08, 2025 End: February 08, 2025 Dr. Madelin Alberto DO Referring Provider Active Start: February 08, 2025 End: February 08, 2025 JOVI Morfin Attending Provider Active Start: February 08, 2025 End: February 08, 2025 Team Status: Inactive Member Role/Relationship Status Dates Dr. Madelin Alberto DO Primary Care Provider Active Start: February 11, 2025 End: February 11, 2025 Dr. Jf Perla MD Attending Provider Active Sta rt: February 11, 2025 End: February 11, 2025 Dr. Jf Perla MD Referring Provider Active Sta rt: February 11, 2025 End: February 11, 2025 Team Status: Inactive Member Role/Relationship Status Dates Dr. Madelin Alberto DO Primary Care Provider Active Start: March 02, 2025 End: March 02, 2025 Dr. Lai Mancia MD Attending Provider Active Start: March 02, 2025 End: March 02, 2025 Dr. Lai Mancia MD Referring Provider Active Start: March 02, 2025 End: March 02, 2025 Team Status: Inactive Member Role/Relationship Status Dates Dr. Madelin Alberto DO Primary Care Provider Active Start: March 22, 2025 End: March 22, 2025 Dr. Lai Mancia MD Attending Provider Active Start: March 22, 2025 End: March 22, 2025 Dr. Lai Mancia MD Referring Provider Active Start: March 22, 2025 End: March 22, 2025 Team Status: Inactive Member Role/Relationship Status Dates Dr. Madelin Alberto DO Primary Care Provider Active Start: March 02, 2025 End: March 02, 2025 Dr. Lai Mancia MD Attending Provider Active Start: March 02, 2025 End: March 02, 2025 Dr. Lai Mancia MD Referring Provider Active Start: March 02, 2025 End: March 02, 2025 Team Status: Inactive Member Role/Relationship Status Dates Dr. Madelin Alberto DO Primary Care Provider Active Start: March 22, 2025 End: March 22, 2025 Dr. Lai Mancia MD Attending Provider Active Start: March 22, 2025 End: March 22, 2025 Dr. Lai Mancia MD Referring Provider Active Start: March 22, 2025 End: March 22, 2025 Team Status: Inactive Member Role/Relationship Status Dates Dr. Madelin Alberto DO Primary Care Provider Active Start: June 14, 2025 End: June 14, 2025 Dr. Madelin Alberto DO Referring Provider Active Start: June 14, 2025 End: June 14, 2025 JOVI Morfin Attending Provider Active Start: June 14, 2025 End: June 14, 2025 FOR RECORDS PERTAINING TO PATIENTS WHO ARE OR HAVE BEEN ENROLLED IN A CHEMICAL DEPENDENCY/SUBSTANCEABUSE PROGRAM, SOME INFORMATION MAY BE OMITTED. This clinical summary was aggregated from multiple sources. Caution should be exercised in using it in the provision of clinical care. This summary normalizes information from multiple sources, and as a consequence, information in this document may materially change the coding, format and clinical context of patient data. In addition, data may be omitted in some cases. CLINICAL DECISIONS SHOULD BE BASED ON THE PRIMARY CLINICAL RECORDS. [facility]. provides no warranty or guarantee of the accuracy or completeness of information in this document.
[2025-09-02 19:49] LABS: Prothrombin Time (Protime)PT. 16.0 SECONDS (11.7-14.9)
[2025-09-02 19:50] LABS: Partial Thromboplast Time 36.8 Seconds (24.1-36.2)
[2025-09-02 19:54] LABS: Urine Bilirubin Dipstick 1 mg/dL (Negative)
[2025-09-02 20:02] LABS: AST(SGOT) 29 U/L (<=31); Alanine Aminotransfer ALT/SGPT 21 U/L (<=34); Albumin, Serum 3.9 g/dL (3.4-4.8); Alkaline Phosphatase 103 U/L (35-104); Anion Gap 13 (5-15); BUN 12 mg/dL (4-19); BUN/Creat Ratio 16.6 RATIO (10-20); Calcium,Total 9.1 mg/dL (7.6-11.0); Carbon Dioxide 25.6 mmol/L (21.0-32.0); Chloride 98 mmol/L (98-108); Estimated Creatinine Clearance 68.90 ml/min (50-250); Globulin 3.4 g/dL (2.2-4.2); Glucose 201 mg/dL (70-99); Potassium 3.4 mmol/L (3.3-5.1)
[2025-09-02 20:16] LABS: Squamous Epithelial Cells - UA 0-5 SEEN /hpf (5-10)
[2025-09-02 20:17] LABS: Red Blood Cells-Urine 0-5 SEEN /hpf (0-5)
[2025-09-02] MEDS: Ceftriaxone 2 GM in 0.9% Normal Saline (50mL MB+) 50 ML IV (20:26)
[2025-09-02] MEDS: Azithromycin 500 MG in 0.9% Normal Saline (250mL Bag) 250 ML 250 MG IV (20:36)
--- OUTSIDE RECORDS SUMMARY | 2025-09-02 20:40 | XMS RPT_ITS | CCD ---
Author Organization [facility] ion [facility] Care Team Providers Care Smoking Pipe Liner Name Role Phone Madelin Alberto Unavailable Sofi Santana Unavailable Carlos Alberto Miner Unavailable [facility], [facility] Unavailable Hiwot Lowe Unavailable Unavailable MessengerKiki Unavailable Unavailable Unavailable Unavailable Madelin Alberto Unavailable Sofi Santana Unavailable Carlos Alberto Miner Unavailable [facility], [facility] Unavailable Hiwot Lowe Unavailable Unavailable Gravius, Tracy Unavailable Unavailable Messenger, Kiki Unavailable Unavailable Unavailable Unavailable Elvia Sylvester Unavailable Unavailable Gravius, Tracy Unavailable Unavailable Messenger, Kiki Unavailable Unavailable Unavailable Unavailable Bernarda Minaya Unavailable Unavailable Ciesa, Monica Unavailable Miguel COLEMAN Madelin Unavailable Sofi Santana Unavailable Carlos Alberto Miner MD Unavailable [facility], [facility] Unavailable Hiwot Lowe Unavailable Unavailable Cross VIDEO GAME ANIMATOR, Elvia Unavailable Unavailable Gravius CAN TENDER, Tracy Unavailable Unavailable Messenger RN, Kiki Unavailable Unavailable Unavailable Unavailable Dr. Stu Her Unavailable [place]arb VIDEO GAME ANIMATOR, Krissy Unavailable Unavailable [facility] Unavailable Dr. Madelin Alberto Primary Care Provider Dr. Madelin Alberto Referring Provider JOVI Akbar Attending Provider Madelin Alberto DO Unavailable [facility] Unavailable Sofi Santana Unavailable Carlos Alberto Miner MD Unavailable Dr. Stu Her Unavailable [facility], [facility] Unavailable Hiwot Lowe Unavailable Unavailable Gravius CAN TENDER, Tracy Unavailable Unavailable Cross VIDEO GAME ANIMATOR, Elvia Unavailable Unavailable Payton RN, Kiki Unavailable Unavailable Unavailable Unavailable Madelin Alberto DO Unavailable [place] OMA, Kayela Unavailable Unavailable Madelin Alberto DO Attending Unavailable Madelin Alberto DO Referring Unavailable Madelin Alberto DO Consulting Unavailable Dr. Madelin Alberto Primary Care Provider Dr. Brando Weiss Emergency Provider Dr. Misha Rosario Admit Provider Dr. Misha Rosario Attending Provider Dr. Misha Rosario Other Provider Dr. Simone Benitez Attending Provider Unavailable Dr. Simone Benitez Other Provider Unavailable [place] VIDEO GAME ANIMATOR, Wilfrid Unavailable Unavailable Bianca Brewster MA Unavailable Unavailable Sibilia, Lai Unavailable Manchak OMA, Sarah Unavailable Unavailable Dr. Madelin Alberto Referring Provider JOVI Akbar Attending Provider Dr. Madelin Alberto Primary Care Provider Dr. Madelin Alberto Referring Provider JOVI Akbar Attending Provider Dr. Jesse Knutson Attending Provider Miguel DO, Dr. Yusuf Primary Care Provider Miguel COLEMAN, Dr. Yusuf Referring Provider [phone] Raffy VIDEO GAME ANIMATOR-C, Bernarda Attending Provider [phone] Raffy VIDEO GAME ANIMATOR-C, Bernarda Referring Provider [phone] Miguel COLEMAN, Dr. Yusuf Attending Provider King ART, Dr. Rhoades Attending Provider King ART, Dr. Rhoades Referring Provider Gavino CORDOVA, Dr. Lai Pappas Attending Provider Gavino CORDOVA, Dr. Lai Pappas Referring Provider Miguel COLEMAN, Dr. Yusuf Primary Care Provider Miguel COLEMAN, Dr. Yusuf Referring Provider [phone] Raffy VIDEO GAME ANIMATOR-C, Bernarda Attending Provider [phone] Miguel COLEMAN, Dr. Yusuf Primary Care Provider [phone] Miguel COLEMAN, Dr. Yusuf Referring Provider Raffy VIDEO GAME ANIMATOR-C, Bernarda Attending Provider [phone] Miguel, Madelin Primary Care Unavailable Raffy, [...] Phone: (1 source) glimepiride Drug Allergy 5 [facility] Repository (1 source) Lisinopril Drug Allergy 5 [facility] Repository (1 source) Losartan Drug Allergy 5 [facility] NEGATED: Highlighted row has been [...] Sig (Original) Blood-Glucose Meter,Continuous (Freestyle Angeline 3 [place]) misc (2 sources) Start: 03-12-2024 Blood-Glucose Meter,Continuous (Freestyle Angeline 3 [place]) misc Active 0 .Route 1 March 12, [...] 2024 12:00am 1 sensor q 14 days Blood-Glucose,Nursery Laborer,Cont (Freestyle Angeline 3 [place]) misc (3 sources) Start: 03-12-2024 Blood-Glucose,Nursery Laborer,Cont (Freestyle Angeline 3 [place]) misc Active 0 .Route 1 0 March 12, 2024 12:00am Diabetes mellitus Type 2 diabetes mellitus with hyperglycemia As directed Start: 03-12-2024 Blood-Glucose, Nursery Laborer,Cont (Freestyle Angeline 3 [place]) misc Active 0 .Route 1 March 12, [...] sources) Bisphosphonate Start: 11-14-2023 End: 11-11-2024 Zoledronic Rfqc-Hfcxscei-Hzhph 5 mg/100 mL piggyback Active 0 .ROUTE [...] doctor Start: 10-24-2021 take 2 tablets by [facility] daily amLODIPine Besylate 5 MG Oral Tablet 2 (two) Tablet qd for 60 days Quantity: 60 {Tablet} Refills: 3 Ordered: 24-Oct-2021 Madelin Ablerto DO, DO, Kathleen Start : 24-Oct-2021 Active Start: 03-20-2021 take 2 tablets by [facility] once daily amLODIPine Besylate 5 MG Oral Tablet 2 (two) Tablet qd for 60 days Quantity: 60 {Tablet} Refills: 3 Ordered: 20-Mar-2021 Krissy Ambrosio LPN Start : 20-Mar-2021 Active Start: 12-12-2020 End: 02-22-2022 take 1 tablet by mouth once daily Amlodipine 5 mg tablet Discontinued 5 mg PO DAILY February 14, 2021 12:00am February 22, 2022 2:58pm Start: 11-06-2019 take 1 tablet by [facility] once daily amLODIPine Besylate 5 MG Oral [...] {Package} Refills: 0 Ordered: 07-Aug-2017 Kiki Cain VIDEO GAME ANIMATOR Start : 31-Jul-2017 End : 07-Aug-2017 Inactive [...] mg/ml extended release suspension (20 sources) Uncompetitive X-gpampt-T-aspartate Receptor Antagonist, Sigma-1 Agonist Start: 08-20-2018 End: [...] 1 tablet by mouth every week COLIN [id number] (Oral Capsule) tad Capsule uad for 90 [...] Estrogen Start: 01-10-2022 End: 07-25-2022 estrogens, conjugated (jail) 0.625 mg/ml vaginal cream (18 sources) Estrogen [...] {Milliliter} Refills: 0 Ordered: 14-Jun-2010 Kiki Cain VIDEO GAME ANIMATOR Start : 30-Nov-2009 Inactive Comments: vanesa Comment [...] Start: 03-20-2021 take 4 tablets by [facility] once daily metFORMIN HCl ER (OSM) 500 [...] 1:38pm Start: 04-28-2020 take 4 tablets by [facility] once daily metFORMIN HCl ER (OSM) 500 [...] Active Start: 07-02-2018 take 4 tablets by [facility] once daily MetFORMIN HCl ER (OSM) 500 [...] Start: 03-20-2021 take 1 capsule by [facility] once daily Effexor XR 75 MG Oral Capsule Extended Release 24 Hour 1 Capsule ER 24HR qd for 30 days Quantity: 30 {Capsule} Refills: 3 Ordered: 20-Mar-2021 Krissy Ambrosio LPN Start : 20-Mar-2021 Active Start: 02-14-2021 take 1 tablet by [facility] once daily Venlafaxine 75 mg tablet Active 75 mg PO DAILY February 14, 2021 12:00am Check with primary doctor Start: 01-31-2021 take 1 capsule by [facility] once daily Effexor XR 75 MG Oral Capsule Extended Release 24 Hour 1 Capsule ER 24HR qd for 30 days Quantity: 30 {Capsule} Refills: 3 Ordered: 31-Jan-2021 Madelin Alberto DO, DO, Kathleen Start : 31-Jan-2021 Active Start: 04-28-2020 take 1 capsule by [facility] once daily Effexor XR 75 MG Oral Capsule Extended Release 24 Hour 1 Capsule ER 24HR qd for 60 days Quantity: 60 {Capsule} Refills: 3 Ordered: 28-Apr-2020 Tracy Kapadia CMA Start : 28-Apr-2020 Active Start: 01-28-2019 take 1 capsule by [facility] once daily Effexor XR 75 MG Oral Capsule Extended Release 24 Hour 1 Capsule ER 24HR qd for 30 days Quantity: 30 {Capsule} Refills: 5 Ordered: 28-Jan-2019 Madelin Alberto DO, DO, Kathleen Start : 28-Jan-2019 Active Start: 07-02-2018 take 1 capsule by [facility] once daily Effexor XR 75 MG Oral [...] Endocrinology Visit Reporton 06-14-2025 Endocrinology Visit Report [facility] [address] [place] [address] OFFICE VISIT Date of Service: 06/14/25 MR#: [id number] Acct: [id number] Name: ERIN LAWRENCE Rep #: [id number] : 1955 Provider: JOVI cueto Age/Sex: 70/F Location: [facility] Status: Signed Intake Vital Signs 02/08/25 09:49 [...] 03/12/24 06/14/25 Rx Angeline 3 Sensor device) 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,rn advanced ,cont #1 ea 03/12/24 06/14/25 Rx (FreeStyle Angeline 3 [place]) insulin syringe-needle U-100 0.3 #100 ea 07/02/24 [...] at r (more content not included)... Normal [facility] Chest without Contraston Chest without Contrast [facility] Services [address] [place], [place] [address] Chest without Contrast MR#: [id number] Acct: [id number] Name: ERIN LAWRENCE Rep #: [id number] : 1955 F 70 From: Alberto luna MD PCP: Dr. Madelin Alberto, DO Status: REG CLI Study: Chest without Contrast Date of Exam: 03/22/25 Exam# [id number] Ordering Dr: Lai Mancia MD PROCEDURE: CHEST [...] of the right middle lobe. Reading Location: [id number] CC: Dr. Madelin Alberto DO; Dr. Lai Mancia MD Financial Administrative Assistant: Signed Normal [facility] Microalb:Creat Ratio,Random URon 03-19-2025 MALB:CREAT 85.1 mg/g CRE Normal [facility] Comment on above: Result Comment: AMENDED REPORT 03/19/25 0804 MALB:CREAT previously reported as: 850.7 mg/g CRE Performed By: #### L 501.9520, L506.1001, L501.9985, L500.4100, L502.0250, L500.4050, L3400.4600, L100.0100, L3410.9992 #### [facility] [address] [place], [address] Absolute lymphocyte countOrd ered By: Lai Mancia on 03-02-2025 Lymphocytes Auto (Unsp spec) [#/Vol] 2.42 10*3/uL 0.83-4.51 [facility] Absolute neutrophil countOrd ered By: Lai Mancia on 03-02-2025 Neutrophils (Bld) [#/Vol] 7.9 10*3/uL High 2.0-7.7 [facility] Automated lymphocyte count a s percentage of total leukocytesOrdered By: Lai Mancia on 03-02-2025 Lymphocytes/100 WBC Auto (Unsp spec) 21.0 % 19-41 [facility] Basophil percentageOrdered B y: Lai Mancia on 03-02-2025 Basophils/100 WBC (Bld) 0.8 % 0-1 [facility] CBC W/Diff, Automatedon Absolute Lymph 2.42 X10 3/uL Normal 0.83-4.51 [facility] Comment on above: Performed By: #### L 100.0100 #### [facility] [address] [place], [address] Absolute Neut 7.9 X10 3/uL High 2.0-7.7 [facility] Comment on above: Performed By: #### L 100.0100 #### [facility] [address] [place], [address] Basophils/100 WBC (Bld) 0.8 % Normal 0-1 [facility] Comment on above: Performed By: #### L 100.0100 #### [facility] [address] [place], [address] Eosinophils/100 WBC (Bld) 2.0 % Normal 0-5 [facility] Comment on above: Performed By: #### L 100.0100 #### [facility] [address] [place], [address] Erythrocyte distribution width (RBC) [Ratio] 13.2 % Normal 11.6-14.6 [facility] Comment on above: Performed By: #### L 100.0100 #### [facility] [address] [place], [address] Hematocrit (Bld) [Volume fraction] 42.5 % Normal 37-47 [facility] Comment on above: Performed By: #### L 100.0100 #### [facility] [address] [place], [address] Hemoglobin (Bld) [Mass/Vol] 13.8 g/dL Normal 12.0-15.0 [facility] Comment on above: Performed By: #### L 100.0100 #### [facility] [address] [place], [address] IG% 1.500 High 0.0-0.9 [facility] Comment on above: Result Comment: IG% - Immature Granulocytes (promyelocytes, myelocytes and metamyelocytes) > 1% indicates that a LEFT SHIFT is Present. Performed By: #### L 100.0100 #### [facility] [address] [place], [address] Lymphocytes/100 WBC (Bld) 21.0 % Normal 19-41 [facility] Comment on above: Performed By: #### L 100.0100 #### [facility] [address] [place], [address] MCH (RBC) [Entitic mass] 29.9 pg Normal 27.0-32.0 [facility] Comment on above: Performed By: #### L 100.0100 #### [facility] [address] [place], [address] MCHC (RBC) [Mass/Vol] 32.5 g/dL Normal 32-36 [facility] Comment on above: Performed By: #### L 100.0100 #### [facility] [address] [place], [address] MCV (RBC) [Entitic vol] 92.0 fL Normal 81-99 [facility] Comment on above: Performed By: #### L 100.0100 #### [facility] [address] [place], [address] Monocytes/100 WBC (Bld) 6.4 % Normal 0-10 [facility] Comment on above: Performed By: #### L 100.0100 #### [facility] [address] [place], [address] Neutrophils/100 WBC (Bld) 68.3 % Normal 47-70 [facility] Comment on above: Performed By: #### L 100.0100 #### [facility] [address] [place], [address] Nucleated RBC (Bld) [#/Vol] 0 10*3/uL Normal 0-5 [facility] Comment on above: Performed By: #### L 100.0100 #### [facility] [address] [place], [address] Platelet mean volume (Bld) [Entitic vol] 10.3 fL Normal 6.2-12.0 [facility] Comment on above: Performed By: #### L 100.0100 #### [facility] [address] [place], [address] Platelets (Bld) [#/Vol] 313 10*3/uL Normal 150-450 [facility] Comment on above: Performed By: #### L 100.0100 #### [facility] [address] [place], [address] RBC (Bld) [#/Vol] 4.62 10*6/uL Normal 4.2-5.4 [facility] Comment on above: Performed By: #### L 100.0100 #### [facility] [address] [place], [address] RDW SD 44.5 fl High 35.1-43.9 [facility] Comment on above: Performed By: #### L 100.0100 #### [facility] [address] [place], [address] WBC (Bld) [#/Vol] 11.5 10*3/uL High 4.4-11.0 [facility] Comment on above: Performed By: #### L 100.0100 #### [facility] [address] [place], [address] Eosinophil percentageOrdered By: Lai Mancia on 03-02-2025 Eosinophils/100 WBC (Bld) 2.0 % 0-5 [facility] Erythrocyte distribution wid th ratioOrdered By: Moxee Gavino on 03-02-2025 Erythrocyte distribution width (RBC) [Ratio] 13.2 % 11.6-14.6 [facility] Erythrocyte distribution wid th standard deviationOrdered By: Moxee Gavino on 03-02-2025 Erythrocyte distribution width (RBC) [Ratio] 44.5 fl High 35.1-43.9 [facility] Hematocrit Auto (Bld) [Volum e fraction]Ordered By: Lai Gavino on 03-02-2025 Hematocrit (Bld) [Volume fraction] 42.5 % 37-47 [facility] Hemoglobin measurementOrdere d By: Lai Mancia on 03-02-2025 Hemoglobin (Bld) [Mass/Vol] 13.8 g/dL 12.0-15.0 [facility] Immature granulocytes/100 WB C Auto (Bld)Ordered By: Lai Mancia on 03-02-2025 Immature granulocytes/100 WBC (Bld) 1.500 % High 0.0-0.9 [facility] Comment on above: IG% - Immature Granu locytes (promyelocytes, myelocytes and metamyelocytes) > 1% indicates that a LEFT SHIFT is Present. MCV (mean corpuscular volume ) determinationOrdered By: Lai Mancia on 03-02-2025 MCV (RBC) [Entitic vol] 92.0 fL 81-99 [facility] Mean corpuscular hemoglobin (MCH) determinationOrdered By: Lai Mancia on 03-02-2025 MCH (RBC) [Entitic mass] 29.9 pg 27.0-32.0 [facility] Mean corpuscular hemoglobin concentration (MCHC) determinationOrdered By: Lai Mancia on 03-02-2025 MCHC (RBC) [Mass/Vol] 32.5 g/dL 32-36 [facility] Mean platelet volume determi nationOrdered By: Lai Mancia on 03-02-2025 Platelet mean volume (Bld) [Entitic vol] 10.3 fL 6.2-12.0 [facility] Monocyte percentageOrdered B y: Lai Mancia on 03-02-2025 Monocytes/100 WBC (Bld) 6.4 % 0-10 [facility] Neutrophil percentageOrdered By: Lai Mancia on 03-02-2025 Neutrophils/100 WBC (Bld) 68.3 % 47-70 [facility] Nucleated red blood cell per centageOrdered By: Lai Mancia on 03-02-2025 Nucleated RBC/100 WBC (Bld) [Ratio] 0 % 0-5 [facility] Platelet countOrdered By: Antionette Mancia on 03-02-2025 Platelets (Bld) [#/Vol] 313 10*3/uL 150-450 [facility] RBC Auto (Bld) [#/Vol]Ordere d By: Lai Mancia on 03-02-2025 RBC (Bld) [#/Vol] 4.62 10*6/uL 4.2-5.4 [facility] White blood cell (WBC) count Ordered By: Lai Mancia on 03-02-2025 WBC (Bld) [#/Vol] 11.5 10*3/uL High 4.4-11.0 [facility] Endocrinology Visit Reporton 02-08-2025 Endocrinology Visit Report [facility] [address] [place] [address]. [address] [place] [address] OFFICE VISIT Date of Service: 02/08/25 MR#: [id number] Acct: [id number] Name: ERIN LAWRENCE Rep #: [id number] : 1955 Provider: JOVI cueto Age/Sex: 70/F Location: [facility] Status: Signed Intake Vital Signs 11/09/24 09:35 [...] ea 03/12/24 02/08/25 Rx (FreeStyle Angeline 3 [place]) 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 sensor (FreeStyle #2 ea 03/12/24 02/08/25 [...] Const Constitution (more content not included)... Normal [facility] L3410.9992on 01-27-2025 [facility]. COMMENT Normal . [facility] Comment on above: Order Comment: SERUM [id number] Result Comment: Test Ordered: [id number] Apolipoprotein B Apolipoprotein B 79 mg/dL Reference Range: <90 Desirable < 90 Borderline High 90 - 99 High 100 - 130 Very High >130 ASCVD RISK THERAPEUTIC TARGET CATEGORY APO B (mg/dL) Very High Risk <80 (if extreme risk <70) High Risk <90 Moderate Risk <90 Performed at: [facility] [address] [id number] Director Of Community Services: Severiano Kuo MD, Phone: [phone] Performed at: [facility] [address] [id number] Director Of Community Services: Stu Reyes PhD, Phone: [phone] Performed By: #### L 501.8520, L506.1001, L501.9985, L500.4100, L502.0250, L500.4050, L3400.4600, L100.0100, L3410.9992 ####[facility] [address] [place], [place], [id number] Lipoprotein Aon 01-25-2025 Lipoprotein a [Moles/Vol] 155.1 nmol/L Abnormal <75.0 [facility] Comment on above: Result Comment: Note : Values greater than or equal to 75.0 nmol/L may indicate an independent risk factor for CHD, but must be evaluated with caution when applied to non- populations due to the influence of genetic factors on Lp(a) across ethnicities. Performed at: [facility] [address] [id number] Director Of Community Services: Stu Reyes PhD, Phone: [phone] Performed By: #### L 501.9520, L506.1001, L501.9985, L500.4100, L502.0250, L500.4050, L3400.4600, L100.0100, L3410.9992 ####[facility] [address] [place], [address] Absolute lymphocyte countOrd ered By: Madelin Alberto on 01-22-2025 Lymphocytes Auto (Unsp spec) [#/Vol] 1.58 10*3/uL 0.83-4.51 [facility] Absolute neutrophil countOrd ered By: Madelin Alberto on 01-22-2025 Neutrophils (Bld) [#/Vol] 4.3 10*3/uL 2.0-7.7 [facility] Albumin DL <= 20 mg/L (U) [M ass/Vol]Ordered By: Madelin Alberto on 01-22-2025 Urine Random Microalbumin 188.0 mg/L NO RANGE EST. [facility] Anion gap in Serum or Plasma Ordered By: Madelin Alberto on 01-22-2025 Anion gap [Moles/Vol] 11 mmol/L 5-15 [facility] Automated lymphocyte count a s percentage of total leukocytesOrdered By: Madelin Alberto on 01-22-2025 Lymphocytes/100 WBC Auto (Unsp spec) 24.2 % 19-41 [facility] BUN/creatinine ratioOrdered By: Madelin Alberto on 01-22-2025 Urea nitrogen/Creatinine [Mass ratio] 26.3 mg/mg High 10-20 [facility] Basophil percentageOrdered B y: Madelin Alberto on 01-22-2025 Basophils/100 WBC (Bld) 0.3 % 0-1 [facility] Bilirubin, totalOrdered By: Madelin Alberto on 01-22-2025 Bilirubin [Mass/Vol] 0.57 mg/dL 0.00-1.30 [facility] CBC W/Diff, Automatedon 12-30 Absolute Lymph 1.58 X10 3/uL Normal 0.83-4.51 [facility] Comment on above: Performed By: #### L 501.9520, L506.1001, L501.9985, L500.4100, L502.0250, L500.4050, L3400.4600, L100.0100, L3410.9992 #### [facility] [address] [place], [address] Absolute Neut 4.3 X10 3/uL Normal 2.0-7.7 [facility] Comment on above: Performed By: #### L 501.9520, L506.1001, L501.9985, L500.4100, L502.0250, L500.4050, L3400.4600, L100.0100, L3410.9992 #### [facility] [address] [place], [place], [id number] Basophils/100 WBC (Bld) 0.3 % Normal 0-1 [facility] Comment on above: Performed By: #### L 501.9520, L506.1001, L501.9985, L500.4100, L502.0250, L500.4050, L3400.4600, L100.0100, L3410.9992 #### [facility] [address] [place], [address] Eosinophils/100 WBC (Bld) 1.5 % Normal 0-5 [facility] Comment on above: Performed By: #### L 501.9520, L506.1001, L501.9985, L500.4100, L502.0250, L500.4050, L3400.4600, L100.0100, L3410.9992 #### [facility] [address] [place], [place], [id number] Erythrocyte distribution width (RBC) [Ratio] 13.3 % Normal 11.6-14.6 [facility] Comment on above: Performed By: #### L 501.9520, L506.1001, L501.9985, L500.4100, L502.0250, L500.4050, L3400.4600, L100.0100, L3410.9992 #### [facility] [address] [place], [place], [address] Hematocrit (Bld) [Volume fraction] 42.3 % Normal 37-47 [facility] Comment on above: Performed By: #### L 501.9520, L506.1001, L501.9985, L500.4100, L502.0250, L500.4050, L3400.4600, L100.0100, L3410.9992 #### [facility] [address] [place], [place], [address] Hemoglobin (Bld) [Mass/Vol] 14.1 g/dL Normal 12.0-15.0 [facility] Comment on above: Performed By: #### L 501.9520, L506.1001, L501.9985, L500.4100, L502.0250, L500.4050, L3400.4600, L100.0100, L3410.9992 #### [facility] [address] [facility] [place], [place], [id number] IG% 0.300 Normal 0.0-0.9 [facility] Comment on above: Result Comment: IG% - Immature Granulocytes (promyelocytes, myelocytes and metamyelocytes) > 1% indicates that a LEFT SHIFT is Present. Performed By: #### L 501.9520, L506.1001, L501.9985, L500.4100, L502.0250, L500.4050, L3400.4600, L100.0100, L3410.9992 #### [facility] [address] [place], [address] Lymphocytes/100 WBC (Bld) 24.2 % Normal 19-41 [facility] Comment on above: Performed By: #### L 501.9520, L506.1001, L501.9985, L500.4100, L502.0250, L500.4050, L3400.4600, L100.0100, L3410.9992 #### [facility] [address] [place], [address] MCH (RBC) [Entitic mass] 30.1 pg Normal 27.0-32.0 [facility] Comment on above: Performed By: #### L 501.9520, L506.1001, L501.9985, L500.4100, L502.0250, L500.4050, L3400.4600, L100.0100, L3410.9992 #### [facility] [address] [place], [address] MCHC (RBC) [Mass/Vol] 33.3 g/dL Normal 32-36 [facility] Comment on above: Performed By: #### L 501.9520, L506.1001, L501.9985, L500.4100, L502.0250, L500.4050, L3400.4600, L100.0100, L3410.9992 #### [facility] [address] [place], [address] MCV (RBC) [Entitic vol] 90.4 fL Normal 81-99 [facility] Comment on above: Performed By: #### L 501.9520, L506.1001, L501.9985, L500.4100, L502.0250, L500.4050, L3400.4600, L100.0100, L3410.9992 #### [facility] [address] [place], [address] Monocytes/100 WBC (Bld) 7.1 % Normal 0-10 [facility] Comment on above: Performed By: #### L 501.9520, L506.1001, L501.9985, L500.4100, L502.0250, L500.4050, L3400.4600, L100.0100, L3410.9992 #### [facility] [address] [place], [address] Neutrophils/100 WBC (Bld) 66.6 % Normal 47-70 [facility] Comment on above: Performed By: #### L 501.9520, L506.1001, L501.9985, L500.4100, L502.0250, L500.4050, L3400.4600, L100.0100, L3410.9992 #### [facility] [address] [place], [place], [phone] (090) Nucleated RBC (Bld) [#/Vol] 0 10*3/uL Normal 0-5 [facility] Comment on above: Performed By: #### L 501.9520, L506.1001, L501.9985, L500.4100, L502.0250, L500.4050, L3400.4600, L100.0100, L3410.9992 #### [facility] [address] [place], [address] Platelet mean volume (Bld) [Entitic vol] 11.1 fL Normal 6.2-12.0 [facility] Comment on above: Performed By: #### L 501.9520, L506.1001, L501.9985, L500.4100, L502.0250, L500.4050, L3400.4600, L100.0100, L3410.9992 #### [facility] [address] [place], [address] Platelets (Bld) [#/Vol] 201 10*3/uL Normal 150-450 [facility] Comment on above: Performed By: #### L 501.9520, L506.1001, L501.9985, L500.4100, L502.0250, L500.4050, L3400.4600, L100.0100, L3410.9992 #### [facility] [address] [place], [place], [phone] (109) RBC (Bld) [#/Vol] 4.68 10*6/uL Normal 4.2-5.4 [facility] Comment on above: Performed By: #### L 501.9520, L506.1001, L501.9985, L500.4100, L502.0250, L500.4050, L3400.4600, L100.0100, L3410.9992 #### [facility] [address] [place], [address] RDW SD 43.8 fl Normal 35.1-43.9 [facility] Comment on above: Performed By: #### L 501.9520, L506.1001, L501.9985, L500.4100, L502.0250, L500.4050, L3400.4600, L100.0100, L3410.9992 #### [facility] [address] [place], [place], [phone] WBC (Bld) [#/Vol] 6.5 10*3/uL Normal 4.4-11.0 [facility] Comment on above: Performed By: #### L 501.9520, L506.1001, L501.9985, L500.4100, L502.0250, L500.4050, L3400.4600, L100.0100, L3410.9992 #### [facility] [address] [place], [place], [phone] Calculated very low density lipoprotein (VLDL) cholesterol measurementOrdered By: Madelin Alberto on 01-22-2025 Calculated very low density lipoprotein (VLDL) cholesterol measurement 21 mg/dL 5-40 [facility] VLDL Cholesterol 21 mg/dL -40 [facility] Carbon dioxide, total [Moles /volume] in Central venous bloodOrdered By: Madelin Alberto on 01-22-2025 CO2 [Moles/Vol] 27.0 mmol/L 21.0-32.0 [facility] Chloride assayOrdered By: Stefania mariluangélica Alberto on 01-22-2025 Chloride [Moles/Vol] 104 mmol/L 98-108 [facility] Comprehensive Metabolic Prof ilon 01-22-2025 Albumin [Mass/Vol] 4.1 g/dL Normal 3.4-4.8 [facility] Comment on above: Performed By: #### L 501.9520, L506.1001, L501.9985, L500.4100, L502.0250, L500.4050, L3400.4600, L100.0100, L3410.9992 ####[facility] [address] [place], [place], [phone] Albumin/Globulin [Mass ratio] 1.3 {ratio} Normal 0.9-2.4 [facility] Comment on above: Performed By: #### L 501.9520, L506.1001, L501.9985, L500.4100, L502.0250, L500.4050, L3400.4600, L100.0100, L3410.9992 ####[facility] [address] [place], [place], [phone] ALK PHOS 84 U/L Normal 35-104 [facility] Comment on above: Performed By: #### L 501.9520, L506.1001, L501.9985, L500.4100, L502.0250, L500.4050, L3400.4600, L100.0100, L3410.9992 ####[facility] [address] [place], [address] ALT [Catalytic activity/Vol] 10 U/L Normal <=34 [facility] Comment on above: Performed By: #### L 501.9520, L506.1001, L501.9985, L500.4100, L502.0250, L500.4050, L3400.4600, L100.0100, L3410.9992 ####[facility] [address] [place], [address] AST [Catalytic activity/Vol] 16 U/L Normal <=31 [facility] Comment on above: Performed By: #### L 501.9520, L506.1001, L501.9985, L500.4100, L502.0250, L500.4050, L3400.4600, L100.0100, L3410.9992 ####[facility] [address] [place], [address] Bilirubin [Mass/Vol] 0.57 mg/dL Normal 0.00-1.30 [facility] Comment on above: Performed By: #### L 501.9520, L506.1001, L501.9985, L500.4100, L502.0250, L500.4050, L3400.4600, L100.0100, L3410.9992 ####[facility] [address] [place], [address] BUN/CRE 26.3 RATIO High 10-20 [facility] Comment on above: Performed By: #### L 501.9520, L506.1001, L501.9985, L500.4100, L502.0250, L500.4050, L3400.4600, L100.0100, L3410.9992 ####[facility] [address] [place], [address] Calcium [Mass/Vol] 9.2 mg/dL Normal 7.6-11.0 [facility] Comment on above: Performed By: #### L 501.9520, L506.1001, L501.9985, L500.4100, L502.0250, L500.4050, L3400.4600, L100.0100, L3410.9992 ####[facility] [address] [place], [place], [phone] Chloride [Moles/Vol] 104 mmol/L Normal 98-108 [facility] Comment on above: Performed By: #### L 501.9520, L506.1001, L501.9985, L500.4100, L502.0250, L500.4050, L3400.4600, L100.0100, L3410.9992 ####[facility] [address] [place], [place], [phone] CO2 [Moles/Vol] 27.0 mmol/L Normal 21.0-32.0 [facility] Comment on above: Performed By: #### L 501.9520, L506.1001, L501.9985, L500.4100, L502.0250, L500.4050, L3400.4600, L100.0100, L3410.9992 ####[facility] [address] [place], [place], [phone] Creatinine [Mass/Vol] 0.66 mg/dL Low 0.70-1.20 [facility] Comment on above: Performed By: #### L 501.9520, L506.1001, L501.9985, L500.4100, L502.0250, L500.4050, L3400.4600, L100.0100, L3410.9992 ####[facility] [address] [place], [place], [phone] GAP 11 Normal 5-15 [facility] Comment on above: Performed By: #### L 501.9520, L506.1001, L501.9985, L500.4100, L502.0250, L500.4050, L3400.4600, L100.0100, L3410.9992 ####[facility] [address] [place], [address] GFR/1.73 sq M.predicted among non-blacks MDRD (S/P/Bld) [Vol rate/Area] 95 mL/min/{1.73_m2} Normal >60 [facility] Comment on above: Result Comment: mL/m in/1.73m2 CKD-EPI Creatinine Equation (2020) Performed By: #### L 501.9520, L506.1001, L501.9985, L500.4100, L502.0250, L500.4050, L3400.4600, L100.0100, L3410.9992 ####[facility] [address] [place], [address] Globulin (S) [Mass/Vol] 3.1 g/dL Normal 2.2-4.2 [facility] Comment on above: Performed By: #### L 501.9520, L506.1001, L501.9985, L500.4100, L502.0250, L500.4050, L3400.4600, L100.0100, L3410.9992 ####[facility] [address] [place], [address] Glucose [Mass/Vol] 89 mg/dL Normal 70-99 [facility] Comment on above: Performed By: #### L 501.9520, L506.1001, L501.9985, L500.4100, L502.0250, L500.4050, L3400.4600, L100.0100, L3410.9992 ####[facility] [address] [place], [address] Potassium [Moles/Vol] 3.4 mmol/L Normal 3.3-5.1 [facility] Comment on above: Performed By: #### L 501.9520, L506.1001, L501.9985, L500.4100, L502.0250, L500.4050, L3400.4600, L100.0100, L3410.9992 ####[facility] [address] [place], [place], [phone] Sodium [Moles/Vol] 143 mmol/L Normal 133-145 [facility] Comment on above: Performed By: #### L 501.9520, L506.1001, L501.9985, L500.4100, L502.0250, L500.4050, L3400.4600, L100.0100, L3410.9992 ####[facility] [address] [place], [address] T PROT 7.2 g/dL Normal 5.9-8.4 [facility] Comment on above: Performed By: #### L 501.9520, L506.1001, L501.9985, L500.4100, L502.0250, L500.4050, L3400.4600, L100.0100, L3410.9992 ####[facility] [address] [place], [place], [phone] Urea nitrogen [Mass/Vol] 17 mg/dL Normal 4-19 [facility] Comment on above: Performed By: #### L 501.9520, L506.1001, L501.9985, L500.4100, L502.0250, L500.4050, L3400.4600, L100.0100, L3410.9992 ####[facility] [address] [place], [place], [phone] Creatinine Unsp time (U) [Ma ss/Vol]Ordered By: Madelin Alberto on 01-22-2025 Creatinine (U) [Mass/Vol] 221.00 mg/dL High 28.00-217.00 [facility] Eosinophil percentageOrdered By: Madelin Alberto on 01-22-2025 Eosinophils/100 WBC (Bld) 1.5 % 0-5 [facility] Erythrocyte distribution wid th (RBC) [Ratio]Ordered By: Madelin Alberto on 01-22-2025 Erythrocyte distribution width (RBC) [Entitic vol] 43.8 fL 35.1-43.9 [facility] Erythrocyte distribution wid th ratioOrdered By: Madelin Alberto on 01-22-2025 Erythrocyte distribution width (RBC) [Ratio] 13.3 % 11.6-14.6 [facility] Erythrocyte distribution wid th standard deviationOrdered By: Madelin Alberto on 01-22-2025 Erythrocyte distribution width (RBC) [Ratio] 43.8 fl 35.1-43.9 [facility] GFR/1.73 sq M.predicted pamela g non-blacks MDRD (S/P/Bld) [Vol rate/Area]Ordered By: Madelin Alberto on 01-22-2025 Estimated GFR (MDRD) Non-Af Amer 95 >60 [facility] Comment on above: mL/min/1.73m2 CKD-EP I Creatinine Equation (2020) Glomerular filtration rate ( GFR) estimation/1.73 sq m using serum, plasma, or whole bOrdered By: Madelin Alberto on 01-22-2025 GFR/1.73 sq M.predicted among non-blacks MDRD (S/P/Bld) [Vol rate/Area] 95 mL/min/{1.73_m2} >60 [facility] Comment on above: mL/min/1.73m2 CKD-EP I Creatinine Equation (2020) Hematocrit Auto (Bld) [Volum e fraction]Ordered By: Madelin Alberto on 01-22-2025 Hematocrit (Bld) [Volume fraction] 42.3 % 37-47 [facility] Hemoglobin A1con 01-22-2025 HbA1c (Bld) [Mass fraction] 8.5 % High <=5.6 [facility] Comment on above: Result Comment: Norm al < 5.7 % Prediabetic 5.7 - 6.4 % Diabetic >or= 6.5 % Please note range changes. Performed By: #### L 501.9520, L506.1001, L501.9985, L500.4100, L502.0250, L500.4050, L3400.4600, L100.0100, L3410.9992 ####[facility] [address] [place], [place], [phone] Hemoglobin A1c percentageOrd ered By: Madelin Alberto on 01-22-2025 HbA1c (Bld) [Mass fraction] 8.5 % High <5.7 [facility] Comment on above: Normal < 5.7 % Predi abetic 5.7 - 6.4 % Diabetic >or= 6.5 % Please note range changes. Hemoglobin measurementOrdere d By: Madelin Alberto on 01-22-2025 Hemoglobin (Bld) [Mass/Vol] 14.1 g/dL 12.0-15.0 [facility] Immature granulocytes/100 WB C Auto (Bld)Ordered By: Madelin Alberto on 01-22-2025 Immature granulocytes/100 WBC (Bld) 0.300 % 0.0-0.9 [facility] Comment on above: IG% - Immature Granu locytes (promyelocytes, myelocytes and metamyelocytes) > 1% indicates that a LEFT SHIFT is Present. LDL calc ser/plasOrdered By: Madelin Alberto on 01-22-2025 Cholesterol in LDL [Mass/Vol] 83 mg/dL [facility] Comment on above: Vhsevacpxj=618-161 m g/dL & Higher Otpx=531 mg/dL or greater LDL Cholesterol, Calculated 83 mg/dL [facility] Comment on above: Vupkxqjgns=157-754 m g/dL & Higher Rnnk=724 mg/dL or greater Laboratory - Chemistry and C hemistry - challengeOrdered By: Madelin Alberto on 01-22-2025 AST [Catalytic activity/Vol] 16 U/L <32 [facility] Lipid Profileon 01-22-2025 CHOL:HDL 3.47 Normal [facility] Comment on above: Performed By: #### L 501.9520, L506.1001, L501.9985, L500.4100, L502.0250, L500.4050, L3400.4600, L100.0100, L3410.9992 ####[facility] [address] [place], [address] Cholesterol [Mass/Vol] 146 mg/dL Normal <=200 [facility] Comment on above: Result Comment: Chol esterol level, Desirable <200 mg/dL Borderline high cholesterol 200-239 mg/dL High cholesterol >=240 mg/dL Recommendations of the NCEP Adult Treatment Panel for the following risk-cutoff thresholds for the [place] population. Performed By: #### L 501.9520, L506.1001, L501.9985, L500.4100, L502.0250, L500.4050, L3400.4600, L100.0100, L3410.9992 ####[facility] [address] [place], [place], [phone](359) Cholesterol in HDL [Mass/Vol] 42 mg/dL Normal [facility] Comment on above: Result Comment: Nadya onal Cholesterol Education Program (NCEP) guidelines: <40 mg/dL: Low HDL-cholesterol (major risk factor for CHD) >= 60 mg/dL: High HDL-cholesterol (negative risk factor for CHD) HDL-cholesterol is affected by a number of factors, e.g. smoking, exercise, hormones, sex and age. Performed By: #### L 501.9520, L506.1001, L501.9985, L500.4100, L502.0250, L500.4050, L3400.4600, L100.0100, L3410.9992 ####[facility] [address] [place], [place], [phone]) Cholesterol in LDL [Mass/Vol] 83 mg/dL Normal [facility] Comment on above: Result Comment: Bord dgnzcr=838-377 mg/dL Higher Xsrd=964 mg/dL or greater Performed By: #### L 501.9520, L506.1001, L501.9985, L500.4100, L502.0250, L500.4050, L3400.4600, L100.0100, L3410.9992 ####[facility] [address] [place], [place], [phone]) Cholesterol in VLDL [Mass/Vol] 21 mg/dL Normal 5-40 [facility] Comment on above: Performed By: #### L 501.9520, L506.1001, L501.9985, L500.4100, L502.0250, L500.4050, L3400.4600, L100.0100, L3410.9992 ####[facility] [address] [place], [place], [phone] Triglyceride [Mass/Vol] 104 mg/dL Normal [facility] Comment on above: Result Comment: The drugs N-Acetylcysteine and Metamizole may falsely depress this assay. Normal range: <150 mg/dL Borderline High: 150-199 mg/dL High: 200-499 mg/dL Very High: >500 mg/dL Performed By: #### L 501.9520, L506.1001, L501.9985, L500.4100, L502.0250, L500.4050, L3400.4600, L100.0100, L3410.9992 ####[facility] [address] [place], [place], [phone] Lipoprotein a [Mass/Vol]Orde red By: Madelin Alberto on 01-22-2025 Lipoprotein a [Moles/Vol] 155.1 nmol/L High <75.0 [facility] Comment on above: Note: Values greater than or equal to 75.0 nmol/L may indicate an independent risk factor for CHD, but must be evaluated with caution when applied to non- populations due to the influence of genetic factors on Lp(a) across ethnicities.Performed at: - [facility] [id number] Director: Stu Reyes PhD, Phone: [phone] Lymphocytes Auto (Unsp spec) [#/Vol]Ordered By: Madelin Alberto on 01-22-2025 Lymphocytes (Bld) [#/Vol] 1.58 10*3/uL 0.83-4.51 [facility] Lymphocytes/100 WBC Auto (Un sp spec)Ordered By: Madelin Alberto on 04-25-2025 Lymphocytes/100 WBC (Bld) 24.2 % 19-41 [facility] MCV (mean corpuscular volume ) determinationOrdered By: Madelin Alberto on 01-22-2025 MCV (RBC) [Entitic vol] 90.4 fL 81-99 [facility] Mean corpuscular hemoglobin (MCH) determinationOrdered By: Madelin Alberto on 01-22-2025 MCH (RBC) [Entitic mass] 30.1 pg 27.0-32.0 [facility] Mean corpuscular hemoglobin concentration (MCHC) determinationOrdered By: Madelin Alberto on 01-22-2025 MCHC (RBC) [Mass/Vol] 33.3 g/dL 32-36 [facility] Mean platelet volume determi nationOrdered By: Madelin Alberto on 01-22-2025 Platelet mean volume (Bld) [Entitic vol] 11.1 fL 6.2-12.0 [facility] Microalbumin/creat ratio urO rdered By: Madelin Alberto on 01-22-2025 Urine Microalbumin/Creatinin e Ratio 850.7 mg/g CRE [facility] Monocyte percentageOrdered B y: Madelin Alberto on 01-22-2025 Monocytes/100 WBC (Bld) 7.1 % 0-10 [facility] Neutrophil percentageOrdered By: Madelin Alberto on 01-22-2025 Neutrophils/100 WBC (Bld) 66.6 % 47-70 [facility] Nucleated red blood cell per centageOrdered By: Madelin Alberto on 01-22-2025 Nucleated RBC/100 WBC (Bld) [Ratio] 0 % 0-5 [facility] Platelet countOrdered By: Stefania Alberto on 01-22-2025 Platelets (Bld) [#/Vol] 201 10*3/uL 150-450 [facility] Potassium (Unsp spec) [Mass/ Vol]Ordered By: Madelin Alberto on 01-22-2025 Potassium [Moles/Vol] 3.4 mmol/L 3.3-5.1 [facility] Potassium measurement (mass/ volume)Ordered By: Madelin Alberto on 01-22-2025 Potassium (Unsp spec) [Mass/Vol] 3.4 mmol/L 3.3-5.1 [facility] RBC Auto (Bld) [#/Vol]Ordere d By: Madelin Alberto on 01-22-2025 RBC (Bld) [#/Vol] 4.68 10*6/uL 4.2-5.4 [facility] Random urine creatinine robbi urement (mass/volume)Ordered By: Madelin Alberto on 01-22-2025 Creatinine Unsp time (U) [Mass/Vol] 221.00 mg/dL High 28.00-217.00 [facility] Screening total cholesterol/ high density lipoprotein (HDL) cholesterol ratioOrdered By: Madelin Alberto on 01-22-2025 Cholesterol.total/Chol esterol in HDL [Mass ratio] 3.47 {ratio} [facility] Serum creatinine measurement (mass/volume)Ordered By: Madelin Alberto on 01-22-2025 Creatinine [Mass/Vol] 0.66 mg/dL Low 0.70-1.20 [facility] Serum globulin measurementOr dered By: Madelin Alberto on 01-22-2025 Globulin (S) [Mass/Vol] 3.1 g/dL 2.2-4.2 [facility] Serum glucose measurement (m ass/volume)Ordered By: Madelin Alberto on 01-22-2025 Glucose [Mass/Vol] 89 mg/dL 70-99 [facility] Serum or plasma alanine stringer otransferase (ALT) measurementOrdered By: Madelin Alberto on 01-22-2025 ALT [Catalytic activity/Vol] 10 U/L <35 [facility] Serum or plasma albumin robbi urement (mass/volume)Ordered By: Madelin Alberto on 01-22-2025 Albumin [Mass/Vol] 4.1 g/dL 3.4-4.8 [facility] Serum or plasma albumin/glob ulin mass ratioOrdered By: Madelin Alberto on 01-22-2025 Albumin/Globulin [Mass ratio] 1.3 {ratio} 0.9-2.4 [facility] Serum or plasma alkaline lenard sphatase measurementOrdered By: Madelin Alberto on 01-22-2025 ALP [Catalytic activity/Vol] 84 U/L 35-104 [facility] Serum or plasma calcium robbi urement (mass/volume)Ordered By: Madelin Alberto on 01-22-2025 Calcium [Mass/Vol] 9.2 mg/dL 7.6-11.0 [facility] Serum or plasma cholesterol in HDL measurement (mass/volume)Ordered By: Madelin Alberto on 01-22-2025 Cholesterol in HDL [Mass/Vol] 42 mg/dL >40 [facility] Comment on above: National Cholesterol Education Program (NCEP) guidelines:<40 mg/dL: Low HDL-cholesterol (major risk factor for CHD)>= 60 mg/dL: High HDL-cholesterol (negative risk factor for CHD)HDL-cholesterol is affected by a number of factors, e.g. smoking, exercise, hormones, sex and age. Serum or plasma cholesterol measurement (mass/volume)Ordered By: Madelin Alberto on 01-22-2025 Cholesterol [Mass/Vol] 146 mg/dL <201 [facility] Comment on above: Cholesterol level, D esirable <200 mg/dLBorderline high cholesterol 200-239 mg/dLHigh cholesterol >=240 mg/dLRecommendations of the NCEP Adult Treatment Panel for the following risk-cutoff thresholds for the [place] population. Serum or plasma urea nitroge n measurement (mass/volume)Ordered By: Madelin Alberto on 01-22-2025 Urea nitrogen [Mass/Vol] 17 mg/dL 4-19 [facility] Sodium levelOrdered By: Rosemarie Alberto on 01-22-2025 Sodium [Moles/Vol] 143 mmol/L 133-145 [facility] TSH DL <= 0.005 mIU/L QnOrde red By: Madelin Alberto on 01-22-2025 Thyroid Stimulating Hormone (TSH) 1.650 uIU/mL 0.300-4.200 [facility] TSH Qn 1.650 uIU/mL 0.300-4.200 [facility] Thyroid Stim Hormone (TSH)on 01-22-2025 TSH 1.650 uIU/mL Normal 0.300-4.200 [facility] Comment on above: Performed By: #### L 501.9520, L506.1001, L501.9985, L500.4100, L502.0250, L500.4050, L3400.4600, L100.0100, L3410.9992 ####[facility] [address] [place], [address] Total proteinOrdered By: Susanne Alberto on 01-22-2025 Protein [Mass/Vol] 7.2 g/dL 5.9-8.4 [facility] Triglycerides measurementOrd ered By: Madelin Alberto on 01-22-2025 Triglyceride [Mass/Vol] 104 mg/dL <199 [facility] Comment on above: The drugs N-Acetylcy steine and Metamizole may falsely depress this assay. Normal range: <150 mg/dLBorderline High: 150-199 mg/dLHigh: 200-499 mg/dLVery High: >500 mg/dL Urine albumin measurement wi detection limit of 20 mg/L or less (mass/volume)Ordered By: Madelin Alberto on 01-22-2025 Albumin DL <= 20 mg/L (U) [Mass/Vol] 188.0 mg/L NO RANGE EST. [facility] Vitamin D, 25-hydroxyOrdered By: Madelin Alberto on 01-22-2025 Vitamin D 25-Hydroxy 26.2 ng/mL Low 30-100 [facility] Comment on above: Vitamin D StatusDefi ciency: <20 ng/mL (50nmol/L)Insufficiency: 20-30 ng/mL (50-75 nmol/L)Sufficiency: 30-100 ng/mL (75-250 nmol/L)Toxicity: >100 ng/mL (>250 nmol/L) Vitamin D,25 Hydroxyon 01-22 Vitamin D 25-OH 26.2 ng/mL Low 30-100 [facility] Comment on above: Result Comment: Beronica min D Status Deficiency: <20 ng/mL (50nmol/L) Insufficiency: 20-30 ng/mL (50-75 nmol/L) Sufficiency: 30-100 ng/mL (75-250 nmol/L) Toxicity: >100 ng/mL (>250 nmol/L) Performed By: #### L 501.9540, L506.1001, L501.9985, L500.4100, L502.0250, L500.4050, L3400.4600, L100.0100, L3410.9992 ####[facility] [address] [place], [address] White blood cell (WBC) count Ordered By: Madelin Alberto on 01-22-2025 WBC (Bld) [#/Vol] 6.5 10*3/uL 4.4-11.0 [facility] 90-HK-Fcvcnlo DOrdered By: Kaia Akbar on 11-09-2024 Vitamin D 25-Hydroxy 23.2 ng/mL [facility] Comment on above: Vitamin D 25([place]) Sta tus Range Deficiency <20 ng/mL (50nmol/L) Insufficiency 20 - 30 ng/mL (50 - 75 nmol/L) Sufficiency 30 - 100 ng/mL (75 - 250 nmol/L) Toxicity >100 ng/mL (>250 nmol/L) Albumin to globulin ratioOrd ered By: Bernarda Akbar on 11-09-2024 Albumin/Globulin [Mass ratio] 0.8 {ratio} Low 0.9-2.4 [facility] Bilirubin, totalOrdered By: Bernarda Akbar on 11-09-2024 Bilirubin [Mass/Vol] 0.70 mg/dL 0.20-1.00 [facility] Comment on above: For patients on eltr ombopag therapy, use of Dimension [place] TBIL is not recommended. Blood urea nitrogen (BUN)/cr eatinine ratioOrdered By: Bernarda Akbar on 11-09-2024 Urea nitrogen/Creatinine [Mass ratio] 25.9 mg/mg High 10-20 [facility] Carbon dioxide measurementOr dered By: Bernarda Akbar on 11-09-2024 CO2 [Moles/Vol] 32.0 mmol/L 21.0-32.0 [facility] Chloride measurementOrdered By: Bernarda Akbar on 11-09-2024 Chloride [Moles/Vol] 103 mmol/L 98-107 [facility] Comprehensive Metabolic Prof ilon 11-09-2024 Albumin [Mass/Vol] 3.4 g/dL Normal 3.2-5.0 [facility] Comment on above: Performed By: #### L 506.1000, L500.4100, L506.0400, L501.9520, L500.4050, L502.0250 ####[facility] [address] [place], [address] Albumin/Globulin [Mass ratio] 0.8 {ratio} Low 0.9-2.4 [facility] Comment on above: Performed By: #### L 506.1000, L500.4100, L506.0400, L501.9520, L500.4050, L502.0250 ####[facility] [address] [place], [address] ALK P 97 U/L Normal 45-117 [facility] Comment on above: Performed By: #### L 506.1000, L500.4100, L506.0400, L501.9520, L500.4050, L502.0250 ####[facility] [address] [place], [address] ALT [Catalytic activity/Vol] 15 U/L Normal 13-56 [facility] Comment on above: Performed By: #### L 506.1000, L500.4100, L506.0400, L501.9520, L500.4050, L502.0250 ####[facility] [address] [place], [address] AST [Catalytic activity/Vol] 10 U/L Low 15-37 [facility] Comment on above: Performed By: #### L 506.1000, L500.4100, L506.0400, L501.9520, L500.4050, L502.0250 ####[facility] [address] [place], [address] Bilirubin [Mass/Vol] 0.70 mg/dL Normal 0.20-1.00 [facility] Comment on above: Result Comment: For patients on eltrombopag therapy, use of Dimension [place] TBIL is not recommended. Performed By: #### L 506.1000, L500.4100, L506.0400, L501.9520, L500.4050, L502.0250 ####[facility] [address] [place], [address] BUN/CRE 25.9 RATIO High 10-20 [facility] Comment on above: Performed By: #### L 506.1000, L500.4100, L506.0400, L501.9520, L500.4050, L502.0250 ####[facility] [address] [place], [address] CA,Total 9.2 mg/dL Normal 8.5-10.1 [facility] Comment on above: Performed By: #### L 506.1000, L500.4100, L506.0400, L501.9520, L500.4050, L502.0250 ####[facility] [address] [place], [address] Chloride [Moles/Vol] 103 mmol/L Normal 98-107 [facility] Comment on above: Performed By: #### L 506.1000, L500.4100, L506.0400, L501.9520, L500.4050, L502.0250 ####[facility] [address] [place], [address] CO2 [Moles/Vol] 32.0 mmol/L Normal 21.0-32.0 [facility] Comment on above: Performed By: #### L 506.1000, L500.4100, L506.0400, L501.9520, L500.4050, L502.0250 ####[facility] [address] [place], [address] Creatinine [Mass/Vol] 0.70 mg/dL Normal 0.55-1.02 [facility] Comment on above: Result Comment: The validity of the calculated GFR GFRAA in patients over 70 years has not been determined. Clinical correlation is essential. Performed By: #### L 506.1000, L500.4100, L506.0400, L501.9520, L500.4050, L502.0250 ####[facility] [address] [place], [address] EST GFR - AA 108 mL/min Normal >60 [facility] Comment on above: Result Comment: Afri can [place] GFR Calc Performed By: #### L 506.1000, L500.4100, L506.0400, L501.9520, L500.4050, L502.0250 ####[facility] [address] [place], [address] GAP 6 Normal 5-15 [facility] Comment on above: Performed By: #### L 506.1000, L500.4100, L506.0400, L501.9520, L500.4050, L502.0250 ####[facility] [address] [place], [address] GFR/1.73 sq M.predicted among non-blacks MDRD (S/P/Bld) [Vol rate/Area] 89 mL/min/{1.73_m2} Normal >60 [facility] Comment on above: Result Comment: Non- GFR Calc Performed By: #### L 506.1000, L500.4100, L506.0400, L501.9520, L500.4050, L502.0250 ####[facility] [address] [place], [address] Globulin (S) [Mass/Vol] 4.1 g/dL Normal 2.2-4.2 [facility] Comment on above: Performed By: #### L 506.1000, L500.4100, L506.0400, L501.9520, L500.4050, L502.0250 ####[facility] [address] [place], [address] Glucose [Mass/Vol] 147 mg/dL High 74-106 [facility] Comment on above: Result Comment: Fast ing Glucose result greater than or equal to 126 mg/dL suggests DIABETES MELLITUS per A.D.A. criteria. Performed By: #### L 506.1000, L500.4100, L506.0400, L501.9520, L500.4050, L502.0250 ####[facility] [address] [place], [address] Potassium [Moles/Vol] 3.8 mmol/L Normal 3.5-5.1 [facility] Comment on above: Performed By: #### L 506.1000, L500.4100, L506.0400, L501.9520, L500.4050, L502.0250 ####[facility] [address] [place], [address] Sodium [Moles/Vol] 141 mmol/L Normal 136-145 [facility] Comment on above: Performed By: #### L 506.1000, L500.4100, L506.0400, L501.9520, L500.4050, L502.0250 ####[facility] [address] [place], [address] T PROT 7.5 g/dL Normal 6.4-8.2 [facility] Comment on above: Performed By: #### L 506.1000, L500.4100, L506.0400, L501.9520, L500.4050, L502.0250 ####[facility] [address] [place], [address] Urea nitrogen [Mass/Vol] 18 mg/dL Normal 7-18 [facility] Comment on above: Performed By: #### L 506.1000, L500.4100, L506.0400, L501.9520, L500.4050, L502.0250 ####[facility] [address] [place], [address] Direct serum free thyroxine (FT4) measurementOrdered By: Bernarda Akbar on 11-09-2024 Free T4 [Mass/Vol] 1.19 ng/dL 0.76-1.46 [facility] Endocrinology Visit Reporton 11-09-2024 Endocrinology Visit Report [facility] [address] [place] [address] OFFICE VISIT Date of Service: 11/09/24 MR#: [id number] Acct: [id number] Name: ERIN LAWRENCE Rep #: [id number] : 1955 Provider: JOVI cueto Age/Sex: 69/F Location: [facility] Status: Signed Intake Vital Signs 07/06/24 13:01 [...] ea 03/12/24 11/09/24 Rx (FreeStyle [place] 3 [place]) 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 sensor (FreeStyle #2 ea 03/12/24 11/09/24 [...] Cardio Cardio (more content not included)... Normal [facility] Estimated glomerular filtrat ion rate (GFR) AmericanOrdered By: Bernarda Akbar on 11-09-2024 Estimated GFR (MDRD) Amer 108 mL/min >60 [facility] Comment on above: GFR Calc Glomerular filtration rate ( GFR) estimationOrdered By: Bernarda Akbar on 11-09-2024 Estimated GFR (MDRD) Non-Af Amer 89 mL/min >60 [facility] Comment on above: Non- GFR Calc GFR/1.73 sq M.predicted among non-blacks MDRD (S/P/Bld) [Vol rate/Area] 89 mL/min/{1.73_m2} >60 [facility] Comment on above: Non- GFR Calc Glucose measurementOrdered B y: Bernarda Akbar on 11-09-2024 Glucose [Mass/Vol] 147 mg/dL High 74-106 [facility] Comment on above: Fasting Glucose resu lt greater than or equal to 126 mg/dL suggests DIABETES MELLITUS per A.D.A. criteria. High density lipoprotein (HD L) measurementOrdered By: Bernarda Akbar on 11-09-2024 Cholesterol in HDL [Mass/Vol] 56 mg/dL >40 [facility] Comment on above: The drugs N-Acetylcy steine and Metamizole may falsely depress this assay. Reference Range HDL <40 mg/dL Low HDL Cholesterol HDL >or= 60 mg/dL High HDL Cholesterol Laboratory - Chemistry and C hemistry - challengeOrdered By: Bernarda Akbar on 11-09-2024 AST [Catalytic activity/Vol] 10 U/L Low 15-37 [facility] Laboratory - Hematology and Cell countsOrdered By: Bernarda Akbar on 11-09-2024 HbA1c (Bld) [Mass fraction] 8.6 % High 4.2-6.3 [facility] Lipid Profileon 11-09-2024 Cholesterol [Mass/Vol] 148 mg/dL Normal 200 [facility] Comment on above: Result Comment: <200 mg/dL Desirable 200-240 mg/dL Borderline >240 mg/dL High Risk Performed By: #### L 506.1000, L500.4100, L506.0400, L501.9520, L500.4050, L502.0250 ####[facility] [address] [place], [address] Cholesterol in HDL [Mass/Vol] 56 mg/dL Normal [facility] Comment on above: Result Comment: The drugs N-Acetylcysteine and Metamizole may falsely depress this assay. Reference Range HDL <40 mg/dL Low HDL Cholesterol HDL >or= 60 mg/dL High HDL Cholesterol Performed By: #### L 506.1000, L500.4100, L506.0400, L501.9520, L500.4050, L502.0250 ####[facility] [address] [place], [address] Cholesterol in LDL [Mass/Vol] 69 mg/dL Normal 0-130 [facility] Comment on above: Performed By: #### L 506.1000, L500.4100, L506.0400, L501.9520, L500.4050, L502.0250 ####[facility] [address] [place], [address] Cholesterol in VLDL [Mass/Vol] 23 mg/dL Normal 5-40 [facility] Comment on above: Performed By: #### L 506.1000, L500.4100, L506.0400, L501.9520, L500.4050, L502.0250 ####[facility] [address] [place], [address] Triglyceride [Mass/Vol] 117 mg/dL Normal [facility] Comment on above: Result Comment: The drugs N-Acetylcysteine and Metamizole may falsely depress this assay. Serum Triglycerides Reference Interval Normal <150 mg/dL Borderline high 150 - 199 mg/dL High 200 - 499 mg/dL Very High > or = 500 mg/dL Performed By: #### L 506.1000, L500.4100, L506.0400, L501.9520, L500.4050, L502.0250 ####[facility] [address] [place], [address] Low density lipoprotein (LDL ) cholesterol measurementOrdered By: Bernarda Akbar on 11-09-2024 Cholesterol in LDL [Mass/Vol] 69 mg/dL 0-130 [facility] Microalb:Creat Ratio,Random URon 11-09-2024 Creatinine [Mass/Vol] 140.00 mg/dL Normal NO RAN GE EST. [facility] Comment on above: Performed By: #### L 506.1000, L500.4100, L506.0400, L501.9520, L500.4050, L502.0250 ####[facility] [address] [place], [address] MALB:CRE 128.6 mg/g CRE High <30 mg/g CRE [facility] Comment on above: Performed By: #### L 506.1000, L500.4100, L506.0400, L501.9520, L500.4050, L502.0250 ####[facility] [address] [place], [address] MICROALBUMIN,UR 180.0 mg/L Normal NO RANGE EST. [facility] Comment on above: Performed By: #### L 506.1000, L500.4100, L506.0400, L501.9520, L500.4050, L502.0250 ####[facility] [address] [place], [address] Potassium measurementOrdered By: Bernarda Akbar on 11-09-2024 Potassium [Moles/Vol] 3.8 mmol/L 3.5-5.1 [facility] Random urine microalbumin me asurementOrdered By: Bernarda Akbar on 11-09-2024 Urine Random Microalbumin 180.0 mg/L NO RANGE EST. [facility] Serum anion gap measurementO rdered By: Bernarda Akbar on 11-09-2024 Anion gap [Moles/Vol] 6 mmol/L 5-15 [facility] Serum globulin measurementOr dered By: eBrnarda Akbar on 11-09-2024 Globulin (S) [Mass/Vol] 4.1 g/dL 2.2-4.2 [facility] Serum or plasma alanine stringer otransferase (ALT) measurementOrdered By: Bernarda Akbar on 11-09-2024 ALT [Catalytic activity/Vol] 15 U/L 13-56 [facility] Serum or plasma albumin robbi urement (mass/volume)Ordered By: Bernarda Akbar on 11-09-2024 Albumin [Mass/Vol] 3.4 g/dL 3.2-5.0 [facility] Serum or plasma alkaline lenard sphatase measurementOrdered By: Bernarda Akbar on 11-09-2024 ALP [Catalytic activity/Vol] 97 U/L 45-117 [facility] Serum or plasma calcium robbi urement (mass/volume)Ordered By: Bernarda Akbar on 11-09-2024 Calcium [Mass/Vol] 9.2 mg/dL 8.5-10.1 [facility] Serum or plasma cholesterol measurement (mass/volume)Ordered By: Bernarda Akbar on 11-09-2024 Cholesterol [Mass/Vol] 148 mg/dL <200 [facility] Comment on above: <200 mg/dL Desirable 200-240 mg/dL Borderline >240 mg/dL High Risk Serum or plasma creatinine m easurement (mass/volume)Ordered By: Bernarda Akbar on 11-09-2024 Creatinine [Mass/Vol] 0.70 mg/dL 0.55-1.02 [facility] Comment on above: The validity of the calculated GFR & GFRAA in patients over 70 years has not been determined. Clinical correlation is essential. Serum or plasma thyroid stim ulating hormone (TSH) measurement (units/volume)Ordered By: Bernarda Akbar on 11-09-2024 TSH Qn 1.580 uIU/mL 0.358-3.740 [facility] Serum or plasma urea nitroge n measurement (mass/volume)Ordered By: Bernarda Akbar on 11-09-2024 Urea nitrogen [Mass/Vol] 18 mg/dL 7-18 [facility] Sodium levelOrdered By: Guzman Akbar on 11-09-2024 Sodium [Moles/Vol] 141 mmol/L 136-145 [facility] T4 Free Directon 11-09-2024 T4 FREE DIRECT 1.19 ng/dL Normal 0.76-1.46 [facility] Comment on above: Performed By: #### L 506.1000, L500.4100, L506.0400, L501.9520, L500.4050, L502.0250 ####[facility] [address] [place], [address] TSH QnOrdered By: Bernarda cueto on 11-09-2024 Thyroid Stimulating Hormone (TSH) 1.580 uIU/mL 0.358-3.740 [facility] Thyroid Stim Hormone (TSH)on 11-09-2024 TSH 1.580 uIU/mL Normal 0.358-3.740 [facility] Comment on above: Performed By: #### L 506.1000, L500.4100, L506.0400, L501.9520, L500.4050, L502.0250 ####[facility] [address] [place], [address] Total proteinOrdered By: Cynthia Akbar on 11-09-2024 Protein [Mass/Vol] 7.5 g/dL 6.4-8.2 [facility] Triglycerides measurementOrd ered By: Bernarda Akbar on 11-09-2024 Triglyceride [Mass/Vol] 117 mg/dL <199 [facility] Comment on above: The drugs N-Acetylcy steine and Metamizole may falsely depress this assay.Serum Triglycerides Reference Interval Normal <150 mg/dL Borderline high 150 - 199 mg/dL High 200 - 499 mg/dL Very High > or = 500 mg/dL Urine albumin/creatinine rat io for detection of microalbuminuriaOrdered By: Bernarda Akbar on 11-09-2024 Urine Microalbumin/Creatinin e Ratio 128.6 mg/g CRE High <30 [facility] Urine creatinine measurement (mass/volume)Ordered By: Bernarda Akbar on 11-09-2024 Creatinine (U) [Mass/Vol] 140.00 mg/dL NO RANGE EST. [facility] Very low density lipoprotein (VLDL) cholesterol measurementOrdered By: Bernarda Akbar on 11-09-2024 Very low density lipoprotein (VLDL) cholesterol measurement 23 mg/dL 5-40 [facility] VLDL Cholesterol 23 mg/dL 5-40 [facility] Vitamin D,25 Hydroxyon 11-09 Vitamin D 25-OH 23.2 ng/mL Normal [facility] Comment on above: Result Comment: Beronica min D 25([place]) Status Range Deficiency <20 ng/mL (50nmol/L) Insufficiency 20 - 30 ng/mL (50 - 75 nmol/L) Sufficiency 30 - 100 ng/mL (75 - 250 nmol/L) Toxicity >100 ng/mL (>250 nmol/L) Performed By: #### L 506.1000, L500.4100, L506.0400, L501.9520, L500.4050, L502.0250 ####[facility] [address] [place], [address] Hemoglobin A1con 07-10-2024 HbA1c (Bld) [Mass fraction] 7.2 % High 3.8-5.6 [facility] Comment on above: Result Comment: Norm al < 5.7 % Prediabetic 5.7 - 6.4 % Diabetic >or= 6.5 % Please note range changes. Performed By: #### L 506.0400, L501.9520, L501.9985 #### [facility] [address] [place], [address] T4 Free Directon 07-10-2024 T4 FREE DIRECT 0.90 ng/dL Normal 0.76-1.46 [facility] Comment on above: Performed By: #### L 506.0400, L501.9520, L501.9985 #### [facility] [address] [place], [address] Thyroid Stim Hormone (TSH)on 07-10-2024 TSH 1.470 uIU/mL Normal 0.358-3.740 [facility] Comment on above: Performed By: #### L 506.0400, L501.9520, L501.9985 #### [facility] [address] [place], [address] Endocrinology Visit Reporton 07-06-2024 Endocrinology Visit Report [facility] [address] [place], [place] [address] OFFICE VISIT Date of Service: 07/06/24 MR#: [id number] Acct: [id number] Name: ERIN LAWRENCE Rep #: [id number] : 1955 Provider: JOVI cueto Age/Sex: 69/F Location: [facility] Status: Signed Intake Vital Signs 03/12/24 13:44 [...] ea 03/12/24 07/06/24 Rx (FreeStyle [place] 3 [place]) 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 sensor (FreeStyle #2 ea 03/12/24 07/06/24 [...] costly to her, she is applying for [employer] patient assistance. CGM downloaded and reviewed- she [...] cooperative, h (more content not included)... Normal [facility] Basophil percentageOrdered B y: Madelin Alberto on 10-30-2023 Basophil percentage 0-5 SEEN /hpf 0-5 [facility] Bilirubin Test strip Ql (U)O rdered By: Madelin Alberto on 10-30-2023 Bilirubin Ql (U) Negative Negative [facility] Ketones Test strip Ql (U)Ord ered By: Madelin Alberto on 10-30-2023 Ketones Ql (U) Negative Negative [facility] Mucus LM Ql (Urine sed)Order ed By: Madelin Alberto on 10-30-2023 Mucus Ql (Urine sed) 1+ /hpf [facility] Nitrite Test strip Ql (U)Ord ered By: Madelin Alberto on 10-30-2023 Nitrite Ql (U) Negative Negative [facility] No Panel InformationOrdered By: Madelin Alberto on 10-30-2023 Urine RBC 0 SEEN /hpf 0-5 [facility] Protein Test strip Ql (U)Ord ered By: Madelin Alberto on 10-30-2023 Protein Ql (U) 30 mg/dl Negative [facility] Squamous epithelial cells de tection in urine sediment by light microscopyOrdered By: Madelin Alberto on 10-30-2023 Epithelial cells.squamous LM Ql (Urine sed) 0-5 SEEN /hpf 5-10 [facility] Thin prep Papanicolaou smear with manual screeningOrdered By: Madelin Alberto on 10-30-2023 Thin prep Papanicolaou smear with manual screening 80.0 mg/L NO RANGE EST. [facility] Urine albumin/creatinine rat io for detection of microalbuminuriaOrdered By: Madelin Alberto on 10-30-2023 Albumin/Creatinine DL <= 1.0 mg/L (24H U) [Ratio] 117.1 mg/g CRE <30 [facility] Urine blood detectionOrdered By: Madelin Alberto on 10-30-2023 RBC Ql (U) Negative Negative [facility] Urine clarityOrdered By: Susanne Alberto on 10-30-2023 Clarity (U) Sl. Cloudy Clear [facility] Urine color determinationOrd ered By: Madelin Alberto on 10-30-2023 Color (U) Yellow Yellow [facility] Urine creatinine measurement (mass/volume)Ordered By: Madelin Alberto on 10-30-2023 Creatinine (U) [Mass/Vol] 68.30 mg/dL NO RANGE EST. [facility] Urine glucose detectionOrder ed By: Madelin Alberto on 10-30-2023 Glucose Ql (U) Normal mg/dl Normal [facility] Urine leukocyte esterase det ection by dipstickOrdered By: Madelin Alberto on 10-30-2023 Leukocyte esterase Test strip Ql (U) 25 /ul Negative [facility] Urine pHOrdered By: Madelin Alberto on 10-30-2023 pH (U) 6.0 [pH] 5.0 - 8.0 [facility] Urine sediment bacteria coun t by microscopy (number/high power field)Ordered By: Madelin Alberto on 10-30-2023 Bacteria LM.HPF (Urine sed) [#/Area] RARE /hpf None Seen [facility] Urine specific gravity measu rementOrdered By: Madelin Alberto on 10-30-2023 Specific gravity (U) [Rel density] 1.015 1.002-1.030 [facility] Urine urobilinogen measureme ntOrdered By: Madelin Alberto on 10-30-2023 Urobilinogen Ql (U) 1 mg/dl Normal [facility] Absolute lymphocyte countOrd ered By: Madelin Alberto on 10-29-2023 Lymphocytes Auto (Unsp spec) [#/Vol] 1.46 10*3/uL 0.83-4.51 [facility] Automated lymphocyte count a s percentage of total leukocytesOrdered By: Madelin Alberto on 01-30-2024 Lymphocytes/100 WBC Auto (Unsp spec) 20.8 % 19-41 [facility] Basophil percentageOrdered B y: Madelin Alberto on 10-29-2023 Basophils/100 WBC (Bld) 0.3 % 0-1 [facility] Bilirubin [Mass/Vol] 0.60 mg/dL 0.20-1.00 [facility] Comment on above: For patients on eltr ombopag therapy, use of Dimension [place] TBIL is not recommended. Chloride [Moles/Vol] 109 mmol/L 98-107 [facility] Cholesterol [Mass/Vol] 140 mg/dL <200 [facility] Comment on above: <200 mg/dL Desirable 200-240 mg/dL Borderline >240 mg/dL High Risk Eosinophils/100 WBC (Bld) 1.6 % 0-5 [facility] Glucose [Mass/Vol] 119 mg/dL 74-106 [facility] Comment on above: Fasting Glucose resu lt from 100 to 125 mg/dL suggests IMPAIRED HOMEOSTASIS per A.D.A. criteria. Hemoglobin (Bld) [Mass/Vol] 13.7 g/dL 12.0-15.0 [facility] Monocytes/100 WBC (Bld) 6.8 % 0-10 [facility] Neutrophils (Bld) [#/Vol] 4.9 10*3/uL 2.0-7.7 [facility] Neutrophils/100 WBC (Bld) 70.1 % 47-70 [facility] Potassium [Moles/Vol] 3.5 mmol/L 3.5-5.1 [facility] Protein [Mass/Vol] 7.7 g/dL 6.4-8.2 [facility] Sodium [Moles/Vol] 143 mmol/L 136-145 [facility] Triglyceride [Mass/Vol] 128 mg/dL <199 [facility] Comment on above: The drugs N-Acetylcy steine and Metamizole may falsely depress this assay.Serum Triglycerides Reference Interval Normal <150 mg/dL Borderline high 150 - 199 mg/dL High 200 - 499 mg/dL Very High > or = 500 mg/dL WBC (Bld) [#/Vol] 7.0 10*3/uL 4.4-11.0 [facility] Determination of erythrocyte mean corpuscular volume (MCV)Ordered By: Madelin Alberto on 10-29-2023 MCV (RBC) [Entitic vol] 92.7 fL 81-99 [facility] Erythrocyte distribution wid th ratioOrdered By: Madelin Alberto on 10-29-2023 Erythrocyte distribution width (RBC) [Ratio] 13.5 % 11.6-14.6 [facility] Erythrocyte distribution wid th standard deviationOrdered By: Madelin Alberto on 10-29-2023 Erythrocyte distribution width (RBC) [Entitic vol] 45.9 fL 35.1-43.9 [facility] Hematocrit Auto (Bld) [Volum e fraction]Ordered By: Madelin Alberto on 10-29-2023 Hematocrit (Bld) [Volume fraction] 43.1 % 37-47 [facility] High density lipoprotein (HD L) measurementOrdered By: Madelin Alberto on 10-29-2023 Cholesterol in HDL (Body fld) [Mass/Vol] 44 mg/dL >40 [facility] Comment on above: The drugs N-Acetylcy steine and Metamizole may falsely depress this assay. Reference Range HDL <40 mg/dL Low HDL Cholesterol HDL >or= 60 mg/dL High HDL Cholesterol Immature granulocytes/100 WB C Auto (Bld)Ordered By: Madelin Alberto on 10-29-2023 Immature granulocytes/100 WBC (Bld) 0.400 % 0.0-0.9 [facility] Comment on above: IG% - Immature Granu locytes (promyelocytes, myelocytes and metamyelocytes) > 1% indicates that a LEFT SHIFT is Present. Laboratory - Chemistry and C hemistry - challengeOrdered By: Madelin Alberto on 10-29-2023 Albumin/Globulin [Mass ratio] 0.9 {ratio} 0.9-2.4 [facility] ALP [Catalytic activity/Vol] 93 U/L 45-117 [facility] ALT [Catalytic activity/Vol] 15 U/L 13-56 [facility] CO2 [Moles/Vol] 31.0 mmol/L 21.0-32.0 [facility] Globulin (S) [Mass/Vol] 4.1 g/dL 2.2-4.2 [facility] Urea nitrogen/Creatinine [Mass ratio] 22.1 mg/mg 10-20 [facility] Laboratory - Hematology and Cell countsOrdered By: Madelin Alberto on 10-29-2023 MCH (RBC) [Entitic mass] 29.5 pg 27.0-32.0 [facility] MCHC (RBC) [Mass/Vol] 31.8 g/dL 32-36 [facility] Nucleated RBC/100 WBC (Bld) [Ratio] 0 % 0-5 [facility] Platelets (Bld) [#/Vol] 220 10*3/uL 150-450 [facility] Low density lipoprotein (LDL ) cholesterol measurementOrdered By: Madelin Alberto on 10-29-2023 Cholesterol in LDL (Body fld) [Moles/Vol] 70 mg/dL 0-130 [facility] No Panel InformationOrdered By: Madelin Alberto on 10-29-2023 Estimated GFR (MDRD) Amer 120 mL/min >60 [facility] Comment on above: GFR Calc Estimated GFR (MDRD) Non-Af Amer 99 mL/min >60 [facility] Comment on above: Non- GFR Calc Vitamin D 25-Hydroxy 36.0 ng/mL [facility] Comment on above: Vitamin D 25(OH) Sta tus Range Deficiency <20 ng/mL (50nmol/L) Insufficiency 20 - 30 ng/mL (50 - 75 nmol/L) Sufficiency 30 - 100 ng/mL (75 - 250 nmol/L) Toxicity >100 ng/mL (>250 nmol/L) Platelet mean volume Nik-Ec ker (Bld) [Entitic vol]Ordered By: Madelin Alberto on 10-29-2023 Platelet mean volume (Bld) [Entitic vol] 10.4 fL 6.2-12.0 [facility] RBC Auto (Bld) [#/Vol]Ordere d By: Madelin Alberto on 10-29-2023 RBC (Bld) [#/Vol] 4.65 10*6/uL 4.2-5.4 [facility] Serum or plasma calcium robbi urement (mass/volume)Ordered By: Madelin Alberto on 10-29-2023 Calcium [Mass/Vol] 9.0 mg/dL 8.5-10.1 [facility] Serum or plasma creatinine m easurement (mass/volume)Ordered By: Madlein Alberto on 10-29-2023 Creatinine [Mass/Vol] 0.63 mg/dL 0.55-1.02 [facility] Comment on above: The validity of the calculated GFR & GFRAA in patients over 70 years has not been determined. Clinical correlation is essential. Serum or plasma thyroid stim ulating hormone (TSH) measurement (units/volume)Ordered By: Madelin Alberto on 10-29-2023 TSH Qn 1.42 uIU/mL 0.358-3.74 [facility] Serum or plasma urea nitroge n measurement (mass/volume)Ordered By: Madelin Alberto on 10-29-2023 Urea nitrogen [Mass/Vol] 14 mg/dL 7-18 [facility] Thin prep Papanicolaou smear with manual screeningOrdered By: Madelin Alberto on 10-29-2023 Thin prep Papanicolaou smear with manual screening 3.6 g/dL 3.2-5.0 [facility] Thin prep Papanicolaou smear with manual screening 11 U/L 15-37 [facility] Thin prep Papanicolaou smear with manual screening 3 5-15 [facility] Very low density lipoprotein (VLDL) cholesterol measurementOrdered By: Madelin Alberto on 10-29-2023 Cholesterol in VLDL Calc [Moles/Vol] 26 mg/dL 5-40 [facility] Laboratory - Hematology and Cell countson 03-18-2023 HbA1c (Bld) [Mass fraction] 8.1 % 4.2-6.3 [facility] CALCIFEDIOL ([id number])Ordered B y: Hollow Handle Knife Assembler on 03-13-2023 25-hydroxyvitamin D [Mass/Vol] 30.6 ng/mL Normal 30.0-100.0 [facility]; [facility] Work Phone: CBC W/AUTO DIFF WBC ([id number])O rdered By: Hollow Handle Knife Assembler on 03-13-2023 Basophils (Bld) [#/Vol] 0.0 10*3/uL [...] Immature granulocytes/100 WBC (Bld) 0 % Normal [facility]; [facility] Work Phone: Lymphocytes (Bld) [#/Vol] 1.7 10*3/uL Normal 0.7-3.1 [facility]; [facility] Work Phone: Lymphocytes/100 WBC (Bld) 33 % Normal [facility]; [facility] Work Phone: MCH (RBC) [Entitic mass] 29.5 pg Normal 26.6-33.0 [facility]; [facility] Work Phone: MCHC (RBC) [Mass/Vol] 32.9 g/dL Normal 31.5-35.7 [facility] prehensive Internal Medicine; [facility] Work [...] (Bld) [#/Vol] 5.2 10*3/uL Normal 3.4-10.8 [facility]pre [facility]; [facility] Work Phone: LIPID PANEL ([id number])Ordered B y: Hollow Handle Knife Assembler on 03-13-2023 Cholesterol [Mass/Vol] 162 mg/dL Normal 100-199 [facility]; [facility] Work Phone: Cholesterol in HDL [Mass/Vol] 41 mg/dL Normal [facility]; [facility] Work Phone: Triglyceride [Mass/Vol] 128 mg/dL Normal 0-149 [facility]; [facility] Work Phone: LIPID PANEL ([id number]) 23 mg/dL Normal 5-40 [facility]; [facility] Work Phone: LIPID PANEL ([id number]) 98 mg/dL Normal 0-99 [facility]; [facility] Work Phone: LIPID PANEL ([id number]) 2.4 {ratio} Normal 0.0-3.[address] [facility] [address] [facility] Work Phone: METABOLIC PANEL, COMPREHENSI VE ([id number])Ordered By: Hollow Handle Knife Assembler on 03-13-2023 Albumin [Mass/Vol] 4.1 g/dL Normal 3.8-4.8 [facility]; [facility] Work Phone: Albumin/Globulin [Mass ratio] 1.3 {ratio} Normal 1.2-2.2 [facility]; [facility] Work Phone: ALP [Catalytic activity/Vol] 107 U/L Normal 44-121 [facility]; [facility] Work Phone: ALT [Catalytic activity/Vol] 13 U/L Normal 0-32 [facility]; [facility] Work Phone: AST [Catalytic activity/Vol] 15 U/L Normal 0-40 [facility]; [facility] Work Phone: Bilirubin [Mass/Vol] 0.4 mg/dL Normal 0.0-1.2 [facility]; [facility] Work Phone: Calcium [Mass/Vol] 9.3 mg/dL Normal 8.7-10.3 [facility]; [facility] Work Phone: Chloride [Moles/Vol] 105 mmol/L Normal 96-106 [facility]; [facility] Work Phone: CO2 [Moles/Vol] 26 mmol/L Normal 20-29 [facility]; [facility] Work Phone: Creatinine [Mass/Vol] 0.62 mg/dL Normal 0.57-1.00 [facility]; [facility] Work Phone: Globulin (S) [Mass/Vol] 3.2 g/dL Normal 1.5-4.5 [facility]; [facility] Work Phone: Glucose [Mass/Vol] 113 mg/dL Abnormal 70-99 [facility]; [facility] Work Phone: Potassium [Moles/Vol] 4.1 mmol/L Normal 3.5-5.2 [facility]; [facility] Work Phone: Protein [Mass/Vol] 7.3 [...] [facility] Work Phone: METABOLIC PANEL, [facility] ([phone]) 98 mL/min/1.73 Normal [facility]; [facility] Work Phone: MICROALBUMINOrdered By: [employer]ing [employer] Buggy Loader on 03-13-2023 Albumin DL <= 20 mg/L (U) [Mass/Vol] 474.9 ug/mL Normal [facility]; [facility] Work Phone: Albumin/Creatinine (U) [Mass ratio] 243 {mg/g_creat} Abnormal 0-29 [facility]; [facility] Work Phone: Creatinine (U) [Mass/Vol] 195.2 mg/dL Normal [facility]; [facility] Work Phone: TSH ([phone])Ordered By: [employer] Bug[employer] Loader on 03-13-2023 TSH Qn 1.860 {uIU/mL} Normal 0.450-4.500 Comprehen [facility]; [facility] Work Phone: URINALYSIS, W/ MICRO ([phone]) Ordered By: Hollow Handle Knife Assembler on 03-13-2023 Appearance (U) Cloudy Abnormal Comprehens [...] on 02-26-2023 Glucose [Mass/Vol] 189 mg/dL 74-106 [facility] Comment on above: MANAGEMENT OF PATIEN T CARE PER NURSING PROTOCOL Absolute lymphocyte countOrd ered By: Dr. Rosario on 02-24-2023 Lymphocytes Auto (Unsp spec) [#/Vol] 1.49 10*3/uL 0.83-4.51 [facility] Basophil percentageOrdered B y: Dr. Rosario on 02-24-2023 Basophils/100 WBC (Bld) 0.5 % 0-1 [facility] Eosinophils/100 WBC (Bld) 2.6 % 0-5 [facility] Neutrophils (Bld) [#/Vol] 7.8 10*3/uL 2.0-7.7 [facility] Neutrophils/100 WBC (Bld) 71.0 % 47-70 [facility] WBC (Bld) [#/Vol] 11.0 10*3/uL 4.4-11.0 [facility] Blood erythrocytes count (nu mber/volume)Ordered By: Dr. Rosario on 02-24-2023 RBC (Bld) [#/Vol] 3.80 10*6/uL 4.2-5.4 [facility] Blood hemoglobin measurement (mass/volume)Ordered By: Dr. Rosario on 02-24-2023 Hemoglobin (Bld) [Mass/Vol] 11.3 g/dL 12.0-15.0 [facility] Blood lymphocytes/100 leukoc ytesOrdered By: Dr. Rosario on 02-24-2023 Lymphocytes/100 WBC (Bld) 13.6 % 19-41 [facility] Blood monocytes/100 leukocyt esOrdered By: Dr. Rosario on 02-24-2023 Monocytes/100 WBC (Bld) 10.9 % 0-10 [facility] Blood platelet mean volumeOr dered By: Dr. Rosario on 02-24-2023 Platelet mean volume (Bld) [Entitic vol] 10.3 fL 6.2-12.0 [facility] Determination of erythrocyte mean corpuscular volume (MCV)Ordered By: Dr. Rosario on 02-24-2023 MCV (RBC) [Entitic vol] 93.4 fL 81-99 [facility] Hematocrit Auto (Bld) [Volum e fraction]Ordered By: Dr. Rosario on 02-24-2023 Hematocrit (Bld) [Volume fraction] 35.5 % 37-47 [facility] Laboratory - Hematology and Cell countsOrdered By: Dr. Rosario on 02-24-2023 Erythrocyte distribution width (RBC) [Entitic vol] 46.3 fL 35.1-43.9 [facility] Erythrocyte distribution width (RBC) [Ratio] 13.4 % 11.6-14.6 [facility] Immature granulocytes/100 WBC (Bld) 1.400 % 0.0-0.9 [facility] Comment on above: IG% - Immature Granu locytes (promyelocytes, myelocytes and metamyelocytes) > 1% indicates that a LEFT SHIFT is Present. MCH (RBC) [Entitic mass] 29.7 pg 27.0-32.0 [facility] Nucleated RBC/100 WBC (Bld) [Ratio] 0 % 0-5 [facility] MCHC Auto (RBC) [Mass/Vol]Or dered By: Dr. Rosario on 02-24-2023 MCHC (RBC) [Mass/Vol] 31.8 g/dL 32-36 [facility] Platelets bldOrdered By: Dr. Rosario on 02-24-2023 Platelets (Bld) [#/Vol] 234 10*3/uL 150-450 [facility] Whole blood hemoglobin A1c/t otal hemoglobin ratio (mass fraction)Ordered By: Dr. Rosario on 02-24-2023 HbA1c (Bld) [Mass fraction] 7.4 % 3.8-5.6 [facility] Comment on above: Normal < 5.7 % Predi abetic 5.7 - 6.4 % Diabetic >or= 6.5 % Please note range changes. Basophil percentageOrdered B y: Dr. Weiss on 02-23-2023 Bilirubin [Mass/Vol] 0.60 mg/dL 0.20-1.00 [facility] Comment on above: For patients on eltr ombopag therapy, use of Dimension [place] TBIL is not recommended. Chloride [Moles/Vol] 104 mmol/L 98-107 [facility] Glucose [Mass/Vol] 217 mg/dL 74-106 [facility] Comment on above: Glucose result great er than or equal to 200 mg/dLsuggests DIABETES MELLITUS per A.D.A. criteria. Lactate [Moles/Vol] 1.6 mmol/L 0.4-2.0 [facility] Potassium [Moles/Vol] 3.5 mmol/L 3.5-5.1 [facility] Protein [Mass/Vol] 7.3 g/dL 6.4-8.2 [facility] Sodium [Moles/Vol] 140 mmol/L 136-145 [facility] COVID-19 virus antigen assay Ordered By: Dr. Rosario on 02-23-2023 SARS-CoV-2 (COVID-19) Ag IA.rapid Ql (Resp) [facility] Laboratory - Chemistry and C hemistry - challengeOrdered By: Dr. Weiss on 02-23-2023 ALP [Catalytic activity/Vol] 133 U/L 45-117 [facility] ALT [Catalytic activity/Vol] 26 U/L 13-56 [facility] CO2 [Moles/Vol] 30.0 mmol/L 21.0-32.0 [facility] Globulin (S) [Mass/Vol] 4.6 g/dL 2.2-4.2 [facility] Urea nitrogen/Creatinine [Mass ratio] 23.5 mg/mg 10-20 [facility] No Panel InformationOrdered By: Misha Rosario on 02-23-2023 Streptococcus pneumoniae Antigen (M [facility] No Panel InformationOrdered By: Dr. Weiss on 02-23-2023 Estimated Creatinine Clearance Calc 49.12 ml/min [facility] Estimated GFR (MDRD) Amer 111 mL/min >60 [facility] Comment on above: GFR Calc Estimated GFR (MDRD) Non-Af Amer 92 mL/min >60 [facility] Comment on above: Non- GFR Calc No Panel InformationOrdered By: Dr. Rosario on 02-23-2023 Streptococcus pneumoniae Antigen (M [facility] Respiratory pathogens detect ion panel by molecular detection methodOrdered By: Misha Rosario on 02-23-2023 Respiratory pathogens DNA and RNA panel ARIANNA+probe (Resp) [facility] Respiratory pathogens detect ion panel by molecular detection methodOrdered By: Dr. Rosario on 02-23-2023 Respiratory pathogens DNA and RNA panel ARIANNA+probe (Resp) [facility] Serum or plasma albumin robbi urement (mass/volume)Ordered By: Dr. Weiss on 02-23-2023 Albumin [Mass/Vol] 2.7 g/dL 3.2-5.0 [facility] Serum or plasma albumin/glob ulin mass ratioOrdered By: Dr. Weiss on 02-23-2023 Albumin/Globulin [Mass ratio] 0.6 {ratio} 0.9-2.4 [facility] Serum or plasma calcium robbi urement (mass/volume)Ordered By: Dr. Weiss on 02-23-2023 Calcium [Mass/Vol] 9.3 mg/dL 8.5-10.1 [facility] Serum or plasma creatinine m easurement (mass/volume)Ordered By: Dr. Weiss on 02-23-2023 Creatinine [Mass/Vol] 0.68 mg/dL 0.55-1.02 [facility] Comment on above: The validity of the calculated GFR & GFRAA in patients over 70 years has not been determined. Clinical correlation is essential. Serum or plasma urea nitroge n measurement (mass/volume)Ordered By: Dr. Weiss on 02-23-2023 Urea nitrogen [Mass/Vol] 16 mg/dL 7-18 [facility] Thin prep Papanicolaou smear with manual screeningOrdered By: Dr. Weiss on 02-23-2023 Thin prep Papanicolaou smear with manual screening 28 U/L 15 [facility] Thin prep Papanicolaou smear with manual screening 6 5-15 [facility] No Panel Informationon 06-01 Hepatitis C Antibody Non-Reactive Nonreactive W [facility] Work Phone: Comment on above: Non Reactive: < 0.8 Equivocal: >/= 0.8 to < 1.0 Reactive: >/= 1.0The CDC recommends that a reactive/equivocal HCV antibody result be followed up by the HCV Nucleic Acid Amplificationtest (595148) Laboratory - Hematology and Cell countson 04-26-2022 HbA1c (Bld) [Mass fraction] 6.8 % [facility] Work Phone: Blood Glucose , Office ([phone])Ordered By: Tracy Kapadia on 01-08-2022 Glucose Glucometer (BldC) [Moles/Vol] 133 1 Normal [facility]; [facility] Work Phone: CALCIFEDIOL ([phone])Ordered B y: Hollow Handle Knife Assembler on 01-08-2022 25-hydroxyvitamin D [Mass/Vol] 25.4 ng/mL Abnormal 30.0-100.0 [facility]; [facility] Work Phone: CBC W/AUTO DIFF WBC ([phone])O rdered By: Hollow Handle Knife Assembler on 01-08-2022 Basophils (Bld) [#/Vol] 0.0 10*3/uL [...] Phone: Lymphocytes/100 WBC (Bld) 27 % Normal [facility]; [facility] Work Phone: MCH (RBC) [Entitic mass] 30.5 pg Normal 26.6-33.0 [facility]; [facility] Work Phone: MCHC (RBC) [Mass/Vol] 33.6 g/dL Normal 31.5-35.7 [facility] prehensive [facility]; [facility] Work [...] RBC (Bld) [#/Vol] 4.76 10*6/uL Normal 3.77-5.28 [facility] Work Phone: WBC (Bld) [#/Vol] 7.0 10*3/uL Normal 3.4-10.8 [facility]; [facility] Work Phone: HgA1C , Office ([phone])Ordere d By: Tracy Kapadia on 01-08-2022 HbA1c (Bld) [Mass fraction] 8.0 % Abnormal 4.6 - 7.1 [facility]; [facility] Work Phone: LIPID PANEL ([id number])Ordered B y: Hollow Handle Knife Assembler on 01-08-2022 Cholesterol [Mass/Vol] 163 mg/dL Normal 100-199 Co [facility]; [facility] Work Phone: Cholesterol in HDL [Mass/Vol] 46 mg/dL Normal [facility]; [facility] Work Phone: Triglyceride [Mass/Vol] 178 mg/dL Abnormal 0-149 [facility]; [facility] Work Phone: LIPID PANEL ([id number]) 30 mg/dL Normal 5-40 [facility] Work Phone: LIPID PANEL ([id number]) 87 mg/dL Normal 0-99 Compr [facility]; [facility] Work Phone: LIPID PANEL ([id number]) 1.9 {ratio} Normal 0.0-3.2 [facility]; [facility] Work Phone: METABOLIC PANEL, COMPREHENSI VE ([phone])Ordered By: Hollow Handle Knife Assembler on 01-08-2022 Albumin [Mass/Vol] 4.4 g/dL Normal 3.8-4.8 [facility]; [facility] Work Phone: Albumin/Globulin [Mass ratio] 1.6 {ratio} Normal 1.2-2.2 [facility]; [facility] Work Phone: ALP [Catalytic activity/Vol] 101 U/L Normal 44-121 [facility]; [facility] Work Phone: ALT [Catalytic activity/Vol] 13 U/L Normal 0-32 [facility]; [facility] Work Phone: AST [Catalytic activity/Vol] 14 U/L Normal 0-40 [facility]; [facility] Work Phone: Bilirubin [Mass/Vol] 0.5 mg/dL Normal 0.0-1.2 [facility]; [facility] Work Phone: Calcium [Mass/Vol] 9.2 mg/dL Normal 8.7-10.3 [facility]; [facility] Work Phone: Chloride [Moles/Vol] 100 mmol/L Normal 96-106 [facility]; [facility] Work Phone: CO2 [Moles/Vol] 26 mmol/L Normal 20-29 [facility]; [facility] Work Phone: Creatinine [Mass/Vol] 0.55 mg/dL Abnormal 0.57-1.00 [facility]; [facility] Work Phone: Globulin (S) [Mass/Vol] 2.8 g/dL Normal 1.5-4.5 [facility]; [facility] Work Phone: Glucose [Mass/Vol] 140 mg/dL Abnormal 65-99 [facility] Work Phone: Potassium [Moles/Vol] 3.8 mmol/L Normal 3.5-5.2 [facility] prehensive Internal Medicine; [facility] Work Phone: Protein [Mass/Vol] 7.2 g/dL Normal 6.0-8.5 [facility]; [facility] Work Phone: Sodium [Moles/Vol] 143 mmol/L Normal 134-144 [facility]; [facility] Work Phone: Urea nitrogen [Mass/Vol] 14 mg/dL Normal 8-27 [facility]; [facility] Work Phone: Urea nitrogen/Creatinine [Mass ratio] 25 mg/mg Normal 12-28 [facility]; [facility] Work Phone: METABOLIC PANEL, COMPREHENSIVE ([phone]) 101 mL/min/1.73 Normal [facility]; [facility] Work Phone: MICROALBUMINOrdered By: Syst em Buggy Loader on 01-08-2022 Albumin DL <= 20 mg/L (U) [Mass/Vol] 470.5 ug/mL Normal [facility]; [facility] Work Phone: Albumin/Creatinine (U) [Mass ratio] 363 {mg/g_creat} Abnormal 0-29 [facility]; [facility] Work Phone: Creatinine (U) [Mass/Vol] 129.7 mg/dL Normal [facility]; [facility] Work Phone: TSH ([id number])Ordered By: Syste m Buggy Loader on 01-08-2022 TSH Qn 1.250 {uIU/mL} Normal 0.450-4.500 [facility]; [facility] Work Phone: URINALYSIS, W/ MICRO ([id number]) Ordered By: Hollow Handle Knife Assembler on 01-08-2022 Appearance (U) Clear Normal Comprehens [...] (U) Negative Normal Compreh ensive Internal Medicine; [facility] Internal Medicine Work Phone: Ketones Ql (U) Trace Abnormal Comprehens nadya Internal Medicine; [facility] Work Phone: Leukocyte esterase Test strip Ql (U) Negative Normal [facility]; [facility] Work Phone: Microscopic observation LM Nom (Urine sed) See below: Normal [facility]; [facility] Work Phone: Nitrite Ql (U) Negative Normal Comprehens nadya Internal Medicine; [facility] Internal Medicine Work Phone: pH (U) 6.5 [...] [Moles/Vol] 161 1 Normal [facility]; [facility] Internal Medicine Work Phone: HgA1C , Office ([id number])Ordere d By: Krissy Ambrosio on 03-20-2021 HbA1c (Bld) [Mass fraction] 8.6 % Abnormal 4.6 - 7.1 [facility]; [facility] Internal Medicine Work Phone: CALCIFIDIOL ([id number]) VIT D 25 Ordered By: Hollow Handle Knife Assembler on 03-06-2021 25-hydroxyvitamin D [Mass/Vol] 32.8 ng/mL Normal 30.0-100.0 [facility]; [facility] Work Phone: Comment on above: Vitamin D deficiency has been defined by the [place] of[place]icine and an Endocrine Society practice guideline as alevel of serum 25-OH vitamin D less than 20 ng/mL (1,2).The Endocrine Society went on to further define vitamin Dinsufficiency as a level between 21 and 29 ng/mL (2).1. IOM ([place] of Medicine). 2010. Dietary reference intakes for calcium and D. [place]: The National Academies Press.2. Jenna MF, Melissa HANSEN, Faraz DOWD, et al. Evaluation, treatment, and prevention of vitamin D deficiency: an Endocrine Society clinical practice guideline. JCEM. 2010; 96(7):1911-30. Test(s) 874422-HBY-A ; 758078-XNZ-O; 342315-Djyignwhfgrwx; 828008-Uaxbzwlielf, Total; 992605-LXA-O (Total); 570233-Usdtf LDL-P; 133667-JRK Size; 044587-WZ-FV Scorewas developed and its performance characteristics determinedby [employer]. It has not been cleared or approved by the Foodand Drug Administration.PATIENT WAS FASTINGPERFORMED BY: [facility] [address] [id number] BY: [facility] Ujntge4193 [facility] [id number] METABOLIC PANEL, COMPREHENSI VE (04130)Ordered By: Hollow Handle Knife Assembler on 03-06-2021 Albumin [Mass/Vol] 4.4 g/dL Normal 3.8-4.8 [facility] Internal Medicine; [facility] Work Phone: Comment on above: Test(s) 791211-MNU-H ; 559267-MVG-A; 534458-Vduuimoqerols; 281762-Vlxbvtaxaxu, Total; 859210-JKP-U (Total); 063171-Wyndc LDL-P; 072477-BMW Size; 316822-KP-AM Scorewas developed and its performance characteristics determinedby [employer]. It has not been cleared or approved by the Foodand Drug Administration.PATIENT WAS FASTINGPERFORMED BY: [employer] [id number] BY: [facility] Vision SciencesMorristown Medical CenterUvbqlp0240 [facility] [id number] Albumin/Globulin [Mass ratio] 1.7 {ratio} Normal 1.2-2.2 [facility]; [facility] Work Phone: Comment on above: Test(s) 022295-IKV-M ; 488864-YUU-Q; 829370-Akqmcpwpvzlor; 737778-Drhurwvvrfo, Total; 720319-YII-O (Total); 928906-Kfbwp LDL-P; 109443-ZUG Size; 831754-TY-UW Scorewas developed and its performance characteristics determinedby [employer]. It has not been cleared or approved by the Foodand Drug Administration.PATIENT WAS FASTINGPERFORMED BY: [facility] [address] [id number] BY: [employer] Drlqvz2026 [facility] [id number] ALP [Catalytic activity/Vol] 112 U/L Normal 48-121 [facility]; [facility] Work Phone: Comment on above: Test(s) 337920-RAQ-P ; 829156-WHP-L; 872731-Aiaxujkunhsdx; 146141-Aiuveefkmne, Total; 565516-RGE-X (Total); 419822-Myyal LDL-P; 292825-OFH Size; 341459-YS-KR Scorewas developed and its performance characteristics determinedby [employer]. It has not been cleared or approved by the Foodand Drug Administration.PATIENT WAS FASTINGPERFORMED BY: [employer] [id number] BY: [facility] Vision SciencesMorristown Medical CenterFdqqur6790 [facility] [id number] ALT [Catalytic activity/Vol] 9 U/L Normal 0-32 [facility]; [facility] Work Phone: Comment on above: Test(s) 731912-ROO-V ; 192870-XFR-L; 240617-Ibizdugiugwsk; 516151-Lcuyemewmpk, Total; 942852-DND-M (Total); 604049-Kvjhq LDL-P; 339314-IOO Size; 817459-UO-OA Scorewas developed and its performance characteristics determinedby [employer]. It has not been cleared or approved by the Foodand Drug Administration.PATIENT WAS FASTINGPERFORMED BY: [facility] [address] [id number] BY: [employer]6370 [facility] [id number] AST [Catalytic activity/Vol] 12 U/L Normal 0-40 [facility]; [facility] Work Phone: Comment on above: Test(s) 994645-KGC-W ; 390568-GLH-J; 098833-Ljzehbygmaray; 001532-Pwsipkphufb, Total; 819724-BEU-M (Total); 976589-Wrdaq LDL-P; 377369-HMM Size; 589385-FI-BL Scorewas developed and its performance characteristics determinedby [employer]. It has not been cleared or approved by the Foodand Drug Administration.PATIENT WAS FASTINGPERFORMED BY: [facility] [address] [id number] BY: [employer]6370 [facility] [id number] Bilirubin [Mass/Vol] 0.4 mg/dL Normal 0.0-1.2 [facility]; [facility] Work Phone: Comment on above: Test(s) 317821-VSD-P ; 433362-EKF-R; 812064-Gwnuntzqwrgfv; 380446-Elnmbuqrrky, Total; 465422-SQS-F (Total); 196980-Ngpng LDL-P; 272384-LDU Size; 114545-CF-AQ Scorewas developed and its performance characteristics determinedby [employer]. It has not been cleared or approved by the Foodand Drug Administration.PATIENT WAS FASTINGPERFORMED BY: [facility] [address] [id number] BY: [employer] Oyasxx3383 [facility] [id number] Calcium [Mass/Vol] 9.1 mg/dL Normal 8.7-10.3 [facility] Internal Medicine; [facility] Work Phone: Comment on above: Test(s) 067052-LMP-L ; 157781-HOS-P; 402959-Zqtecdjnekccv; 752504-Qqkyopjkfwd, Total; 412185-VZI-W (Total); 628074-Iqqwr LDL-P; 239544-OND Size; 117137-GG-NB Scorewas developed and its performance characteristics determinedby [employer]. It has not been cleared or approved by the Foodand Drug Administration.PATIENT WAS FASTINGPERFORMED BY: [facility] [address] [id number] BY: [employer]6370 [facility] [id number] Chloride [Moles/Vol] 102 mmol/L Normal 96-[address] [facility]; [facility] Work Phone: Comment on above: Test(s) 377643-TMP-R ; 314632-FTH-Y; 517078-Hcmajvdhukmxy; 328456-Ioopchrkfyo, Total; 542313-KNT-E (Total); 746703-Ydxil LDL-P; 814855-SXB Size; 136047-QD-CU Scorewas developed and its performance characteristics determinedby [employer]. It has not been cleared or approved by the Foodand Drug Administration.PATIENT WAS FASTINGPERFORMED BY: [facility] [address] [id number] BY: [employer] Pnoort8981 [facility] [id number] CO2 [Moles/Vol] 26 mmol/L Normal 20-29 [facility] Internal Medicine; [facility] Work Phone: Comment on above: Test(s) 679358-NCI-D ; 483627-MEA-H; 663940-Rzfpjngsucfog; 497205-Eckwcrwjiju, Total; 427959-MGE-W (Total); 309779-Uyxvf LDL-P; 249845-TGU Size; 272957-JF-IU Scorewas developed and its performance characteristics determinedby [employer]. It has not been cleared or approved by the Foodand Drug Administration.PATIENT WAS FASTINGPERFORMED BY: [employer] [id number] BY: [facility] SciencesMorristown Medical CenterPacahj5694 [facility] [id number] Creatinine [Mass/Vol] 0.62 mg/dL Normal 0.57-1.00 [facility] prehensive Internal Medicine; [facility] Work Phone: Comment on above: Test(s) 552231-SAI-E ; 588269-YQI-X; 500636-Qdbtnxsxsirpw; 505955-Gpqhqsqemco, Total; 023926-YMR-G (Total); 519978-Jvchl LDL-P; 973359-ZHU Size; 346872-QV-PR Scorewas developed and its performance characteristics determinedby [employer]. It has not been cleared or approved by the Foodand Drug Administration.PATIENT WAS FASTINGPERFORMED BY: [employer] [address] [id number] BY: [facility] SciencesMorristown Medical CenterFvjooa9355 [facility] [id number] GFR/1.73 sq M.predicted among blacks CKD-EPI (S/P/Bld) [Vol rate/Area] 109 mL/min/1.73 Normal [facility]; [facility] Work Phone: Comment on above: LabClickingHouse currently reports eGFR in compliance with the current recommendations of the National Kidney Foundation. Labsaint [facility] will update reporting as new guidelines are published from the NKF-ASN Task force. Test(s) 860631-ZZG-P ; 744669-VOY-B; 721128-Jqkhkiajognrq; 173229-Mrkdypzqadf, Total; 287321-WLT-C (Total); 908068-Drnts LDL-P; 104644-ASU Size; 300387-BL-LP Scorewas developed and its performance characteristics determinedby [employer]. It has not been cleared or approved by the Foodand Drug Administration.PATIENT WAS FASTINGPERFORMED BY: [facility] [address] [id number] BY: [employer] Fklumr7999 [facility] [id number] GFR/1.73 sq M.predicted among non-blacks CKD-EPI (S/P/Bld) [Vol rate/Area] 95 mL/min/1.73 Normal [facility]; [facility] Work Phone: Comment on above: Test(s) 112497-WVB-B ; 283900-TIY-C; 545579-Xcxcgflywvtvz; 951830-Uhwuzduhirw, Total; 400008-CNB-K (Total); 576011-Tlnqf LDL-P; 292689-APB Size; 249989-IN-QF Scorewas developed and its performance characteristics determinedby [employer]. It has not been cleared or approved by the Foodand Drug Administration.PATIENT WAS FASTINGPERFORMED BY: [facility] [address] [id number] BY: [employer]6370 [facility] [id number] Globulin (S) [Mass/Vol] 2.6 g/dL Normal 1.5-4.5 [facility] Internal Medicine; [facility] Work Phone: Comment on above: Test(s) 826298-RQS-J ; 838252-GPT-G; 552991-Anahzwsmqqvfy; 378042-Pqtgchsckli, Total; 537639-HNR-A (Total); 557436-Nthae LDL-P; 806589-ZPI Size; 174640-VQ-LQ Scorewas developed and its performance characteristics determinedby [employer]. It has not been cleared or approved by the Foodand Drug Administration.PATIENT WAS FASTINGPERFORMED BY: [facility] [address] [id number] BY: [employer] Fljyli4869 [facility] [id number] Glucose [Mass/Vol] 183 mg/dL Abnormal 65-99 [facility] Internal Medicine; [facility] Work Phone: Comment on above: Test(s) 361405-IPI-P ; 655024-CCD-O; 333511-Qyxhrjhkqpsdb; 641759-Fxjfxmjirum, Total; 620236-QIU-C (Total); 938993-Pjted LDL-P; 187552-PXR Size; 685588-LQ-SM Scorewas developed and its performance characteristics determinedby [employer]. It has not been cleared or approved by the Foodand Drug Administration.PATIENT WAS FASTINGPERFORMED BY: [facility] [address] [id number] BY: [employer]6370 [facility] [id number] Potassium [Moles/Vol] 4.0 mmol/L Normal 3.5-5.2 [facility] Internal Medicine; [facility] Work Phone: Comment on above: Test(s) 746914-VCJ-X ; 224240-VJQ-E; 144480-Yrtxwcnuxpjqo; 781898-Nlcawngizhe, Total; 629658-CSB-N (Total); 704625-Adihh LDL-P; 486610-XJP Size; 250507-ZS-FS Scorewas developed and its performance characteristics determinedby [employer]. It has not been cleared or approved by the Foodand Drug Administration.PATIENT WAS FASTINGPERFORMED BY: [facility] [address] [id number] BY: [employer]6370 [facility] [id number] Protein [Mass/Vol] 7.0 g/dL Normal 6.0-8.5 [facility] Internal Medicine; [facility] Work Phone: Comment on above: Test(s) 384828-GRQ-B ; 440417-BAB-K; 214256-Tcniyizyqtsel; 564096-Jolrwdrjghg, Total; 779970-AXW-M (Total); 109161-Mogjd LDL-P; 285919-YCF Size; 162556-MP-NL Scorewas developed and its performance characteristics determinedby [employer]. It has not been cleared or approved by the Foodand Drug Administration.PATIENT WAS FASTINGPERFORMED BY: [employer] [address] [id number] BY: [employer] Qbjrwr4317 [facility] [id number] Sodium [Moles/Vol] 143 mmol/L Normal 134-144 [facility] Internal Medicine; [facility] Work Phone: Comment on above: Test(s) 881004-KON-V ; 900414-VYE-J; 013525-Ndhagxdpoyqxu; 317298-Duklgdazljj, Total; 719228-TJT-L (Total); 565625-Kngbp LDL-P; 879478-AAM Size; 362439-IO-TG Scorewas developed and its performance characteristics determinedby [employer]. It has not been cleared or approved by the Foodand Drug Administration.PATIENT WAS FASTINGPERFORMED BY: [employer] [id number] BY: [employer]6370 [facility] [id number] Urea nitrogen [Mass/Vol] 17 mg/dL Normal 8-27 [facility]; [facility] Work Phone: Comment on above: Test(s) 679465-DQN-L ; 211744-GNQ-T; 497250-Dihqaozpbgosl; 931576-Hbciimpzdhn, Total; 423596-PJP-P (Total); 696261-Grdiu LDL-P; 860729-POG Size; 643042-YX-XD Scorewas developed and its performance characteristics determinedby [employer]. It has not been cleared or approved by the Foodand Drug Administration.PATIENT WAS FASTINGPERFORMED BY: [facility] [address] [id number] BY: [employer] Zxmbfb7256 [facility] [id number] Urea nitrogen/Creatinine [Mass ratio] 27 mg/mg Normal 12-28 [facility]; [facility] Work Phone: Comment on above: Test(s) 500329-EHQ-O ; 003052-GLH-L; 458636-Wyuuuwcoznfjy; 923521-Pabzsrrhwjd, Total; 254995-YQY-F (Total); 454834-Vzbin LDL-P; 790338-TMH Size; 466157-ZX-UU Scorewas developed and its performance characteristics determinedby [employer]. It has not been cleared or approved by the Foodand Drug Administration.PATIENT WAS FASTINGPERFORMED BY: [facility] [address] [id number] BY: SMS [employer]70 [facility] [id number] NMR Profile (21505)Ordered B y: Hollow Handle Knife Assembler on 03-06-2021 Cholesterol [Mass/Vol] 187 mg/dL Normal 100-199 [facility] Internal Medicine; [facility] Work Phone: Comment on above: Test(s) 543474-CVL-U ; 505033-HNA-S; 345537-Mjrxszlfmktwq; 348955-Wamcystsshy, Total; 747308-NLE-H (Total); 416578-Qqfms LDL-P; 044041-TQF Size; 666316-UD-PG Scorewas developed and its performance characteristics determinedby [employer]. It has not been cleared or approved by the Foodand Drug Administration.PATIENT WAS FASTINGPERFORMED BY: [facility] [address] [id number] BY: [employer]6370 [facility] [id number] Information: ADD CBC 111502 Lipoprotein.alpha [Moles/Vol] 34.9 umol/L Normal [facility]; [facility] Work Phone: Comment on above: Test(s) 793610-BQF-S ; 535491-INZ-V; 017309-Symqhevcyotqj; 547196-Ypfmhnimmsa, Total; 910974-TYR-F (Total); 354723-Cgtsu LDL-P; 867466-NXB Size; 192632-WC-JM Scorewas developed and its performance characteristics determinedby [employer]. It has not been cleared or approved by the Foodand Drug Administration.PATIENT WAS FASTINGPERFORMED BY: BN [employer] [id number] BY: [place] 6521770 [facility] [id number] Information: ADD CBC 495482 Lipoprotein.beta.subpa rticle [Entitic length] 19.9 nm Abnormal [...] not afterLDL-P is taken into account. Test(s) 670488-RUD-Q ; 175243-YNJ-M; 851674-Ccgzafzfieevs; 312472-Opwzmbhzwll, Total; 225206-FFD-R (Total); 167120-Meraw LDL-P; 122185-FYE Size; 182394-GI-AL Scorewas developed and its performance characteristics determinedby [employer]. It has not been cleared or approved by the Foodand Drug Administration.PATIENT WAS FASTINGPERFORMED BY: [employer] [id number] BY: [facility]xxanaTr[facility] Hospital6370 [facility] [id number] Information: ADD CBC 737266 Lipoprotein.beta.subpa rticle [Moles/Vol] 1336 nmol/L Abnormal [facility]; [facility] Work Phone: Comment on above: Low < 1000 Moderate 1000 - 1299 Borderline-High 1300 - 1599 High 1600 - 2000 Very High > 2000 Test(s) 027343-YMY-S ; 376442-BEP-J; 348901-Cjvavapcnwwsm; 133798-Wimtnjgbccw, Total; 024037-OJP-B (Total); 278774-Qpyew LDL-P; 830422-ORL Size; 822512-TI-OI Scorewas developed and its performance characteristics determinedby [employer]. It has not been cleared or approved by the Foodand Drug Administration.PATIENT WAS FASTINGPERFORMED BY: [facility] [address] [id number] BY: [facility]StreamC[facility]de[facility] [id number] Information: ADD CBC 871720 Lipoprotein.beta.subpa rticle.small [Moles/Vol] 918 nmol/L Abnormal [facility]; [facility] Work Phone: Comment on above: Test(s) 523812-BRC-O ; 518731-XHF-X; 826303-Wfqxwxsxpumxw; 283302-Iiynteczxfn, Total; 609135-ZEF-Q (Total); 782180-Tciqu LDL-P; 992617-VDT Size; 080650-GH-BN Scorewas developed and its performance characteristics determinedby [employer]. It has not been cleared or approved by the Foodand Drug Administration.PATIENT WAS FASTINGPERFORMED BY: [facility] [address] [id number] BY: [employer] [facility] [id number] Information: ADD CBC 201033 Triglyceride [Mass/Vol] 258 mg/dL Abnormal 0-149 [facility]; [facility] Work Phone: Comment on above: Test(s) 455895-VGY-C ; 599670-GYG-G; 013124-Xidmnskbvaeaz; 991974-Upbvzhhnfvn, Total; 981661-FQD-U (Total); 412670-Anwft LDL-P; 280282-HNV Size; 036153-SM-GX Scorewas developed and its performance characteristics determinedby [employer]. It has not been cleared or approved by the Foodand Drug Administration.PATIENT WAS FASTINGPERFORMED BY: [employer] [id number] BY: [facility] HospitalBR Supply[address] [id number] Information: ADD CBC 450375 NMR Profile (74434) 102 mg/dL Abnormal 0-99 Compr ensive Internal Medicine; [facility] Work Phone: Comment on above: . Optimal < 100 Abov e optimal 100 - 129 Borderline 130 - 159 High 160 - 189 Very high > 189 . Test(s) 137411-RUD-Y ; 179871-SJN-G; 540600-Rajdpjtvpzkuc; 600376-Pakmpygsphx, Total; 207725-JLM-H (Total); 960484-Zexbc LDL-P; 361490-LAB Size; 255213-YI-SB Scorewas developed and its performance characteristics determinedby [employer]. It has not been cleared or approved by the Foodand Drug Administration.PATIENT WAS FASTINGPERFORMED BY: [employer] [id number] BY: [employer] Vision SciencesLarry Ville 4928770 [facility] [id number] Information: ADD CBC 281441 NMR Profile (50634) 41 mg/dL Normal Compr ensive Internal Medicine; [facility] Work Phone: Comment on above: Test(s) 619176-YEW-J ; 291416-XTP-U; 959662-Hpusndkfxmuem; 527723-Jpvkynbyumd, Total; 128004-SGM-R (Total); 522835-Twfbj LDL-P; 859120-SRC Size; 091165-SO-JC Scorewas developed and its performance characteristics determinedby [employer]. It has not been cleared or approved by the Foodand Drug Administration.PATIENT WAS FASTINGPERFORMED BY: [employer]53 Nguyen StreetBurlington [place] [id number] BY: CODY [facility] Vision SciencesMorristown Medical CenterFtjlzm7513 [facility] [id number] Information: ADD CBC 718366 NMR Profile (61484) 258 mg/dL Abnormal 0-149 Compr ensive Internal Medicine; [facility] Work Phone: NMR Profile (30703) 187 mg/dL Normal 100-199 [facility] Internal Medicine; [facility] Work Phone: TSH (39928)Ordered By: Alec kaminski Buggy Loader on 03-06-2021 TSH Qn 2.780 {uIU/mL} Normal 0.450-4.500 [facility] Internal Medicine; [facility] Work Phone: Comment on above: Test(s) 869596-TKQ-P ; 681622-TJH-X; 407108-Douxwihxeycjc; 400136-Skmmatiaegh, Total; 267561-JUK-E (Total); 869330-Hndcy LDL-P; 680588-VFL Size; 960391-ND-XY Scorewas developed and its performance characteristics determinedby [employer]. It has not been cleared or approved by the Foodand Drug Administration.PATIENT WAS FASTINGPERFORMED BY: [employer] [address] [id number] BY: CODY [employer] Brymfy2070 [facility] [id number] ONEIDAOVharjinder 03-02-2021 [facility] Office Visit (UCWSTR ) ERIN LAWRENCE ([id number]) 1955 F Date Time Provider Department 03/02/21 6:00 PM NORMAN PERLA [facility] During your visit today, we recorded the following information about you: Temperature Pulse Respiration Blood pressure 97.6 degrees 72/minute 18/minute 146/86 Weight 80.1 kg Norman KingLISA.HEAVY MOBILE EQUIPMENT REPAIRER 03/02/2021 6:54 PM Signed Subjective HPI HPI [...] to ER. Family will drive pov to [facility] ER Patient declines squad. Norman Perla APRN.HEAVY MOBILE EQUIPMENT REPAIRER Referring Provider: SELF [200] Allergies As of [...] Status:Closed by NORMAN PERLA on 03/02/[address] [facility] CALCIFEDIOL (48812)Ordered B y: Hollow Handle Knife Assembler on 08-16-2020 25-Hydroxyvitamin D2+25-Hydroxyvitamin D3 [Mass/Vol] 34.2 ng/mL Normal 30.0-100.0 [facility] Work Phone: Comment on above: Vitamin D deficiency has been defined by the [place] of[place]icine and an Endocrine Society practice guideline as alevel of serum 25-OH vitamin D less than 20 ng/mL (1,2).The Endocrine Society went on to further define vitamin Dinsufficiency as a level between 21 and 29 ng/mL (2).1. IOM ([place] of Medicine). 2010. Dietary reference intakes for calcium and D. [place]: The National Academies Press.2. Jenna MF, Melissa NC, Faraz DOWD, et al. Evaluation, treatment, and prevention of vitamin D deficiency: an Endocrine Society clinical practice guideline. JCEM. 2010; 96(7):1911-30. Test(s) 866310-ATQ-Q ; 931223-UME-Q; 820813-Jzzrefmtyyddl; 978723-Xvynhiajzgu, Total; 787087-JFC-N (Total); 681399-Drovq LDL-P; 992684-UOD Size; 523405-HD-IR Scorewas developed and its performance characteristics determinedby [employer] It has not been cleared or approved by the Foodand Drug Administration.PATIENT WAS FASTINGPERFORMED BY: [employer] [address] [id number] BY: [facility] Vision SciencesMorristown Medical CenterNdhxto8155 [facility] [id number] CBC with auto diff (48681)Or dered By: Hollow Handle Knife Assembler on 08-16-2020 Basophils (Bld) [#/Vol] 0.0 {x10E3/uL} Normal 0.0-0.2 Comprehensive Internal Medicine Work Phone: Comment on above: Test(s) 403788-JLY-J ; 859259-EXW-G; 284174-Cdzlqevxpmnss; 979725-Durxgfqnwjc, Total; 809470-CAW-C (Total); 587800-Rdgdm LDL-P; 633707-JIM Size; 834164-EN-GL Scorewas developed and its performance characteristics determinedby [employer] It has not been cleared or approved by the Foodand Drug Administration.PATIENT WAS FASTINGPERFORMED BY: Tetherball [address] [id number] BY: [employer] Ktittn8058 [facility] [id number] Basophils (Bld) [#/Vol] 0.0 10*3/uL Normal 0.0-0.2 [facility]; [facility] Work Phone: Comment on above: Test(s) 566947-XEH-Z ; 691888-AFC-G; 928626-Inhkttqixgjkr; 990625-Gaxetrdvtmo, Total; 327383-KZO-Y (Total); 593726-Elrcl LDL-P; 055807-PAK Size; 335723-HY-XF Scorewas developed and its performance characteristics determinedby [employer] It has not been cleared or approved by the Foodand Drug Administration.PATIENT WAS FASTINGPERFORMED BY: Tetherball [address] [id number] BY: [employer] Fwmans0586 [facility] [id number] Basophils/100 WBC (Bld) 0 % Normal [facility] Work Phone: Comment on above: Test(s) 836746-IHS-K ; 878641-CUU-A; 927229-Erdoabjtbmjkr; 413270-Ngsuaklhvkf, Total; 448167-FRQ-L (Total); 621535-Wpulr LDL-P; 443497-GVR Size; 748719-NV-HF Scorewas developed and its performance characteristics determinedby [employer] It has not been cleared or approved by the Foodand Drug Administration.PATIENT WAS FASTINGPERFORMED BY: [employer] [address] [id number] BY: [facility] Vision SciencesEastern New Mexico Medical CenterLgdkmz5334 [facility] [id number] Eosinophils (Bld) [#/Vol] 0.2 {x10E3/uL} Normal 0.0-0.4 [facility] Work Phone: Comment on above: Test(s) 038672-BRD-B ; 160672-MAL-X; 054109-Ellklziddwnvx; 482774-Pcblndtyyvz, Total; 982083-FHO-G (Total); 791252-Fbprh LDL-P; 004273-RQJ Size; 386837-UD-WY Scorewas developed and its performance characteristics determinedby [employer] It has not been cleared or approved by the Foodand Drug Administration.PATIENT WAS FASTINGPERFORMED BY: [employer] [id number] BY: [employer] Iajfya9517 [facility] [id number] Eosinophils (Bld) [#/Vol] 0.2 10*3/uL Normal 0.0-0.4 [facility]; [facility] Work Phone: Comment on above: Test(s) 320590-KST-V ; 595556-GOH-A; 285176-Bwtcnoimvrfwt; 675915-Othgswexdxf, Total; 085420-GFC-N (Total); 973643-Efvtv LDL-P; 553626-MIZ Size; 592085-QJ-FE Scorewas developed and its performance characteristics determinedby [employer] It has not been cleared or approved by the Foodand Drug Administration.PATIENT WAS FASTINGPERFORMED BY: Tetherball [address] [id number] BY: [facility] Vision SciencesMorristown Medical CenterBmjhzn0405 [facility] [id number] Eosinophils/100 WBC (Bld) 3 % Normal [facility] Work Phone: Comment on above: Test(s) 666258-AID-G ; 146682-BJI-Q; 975454-Poawmsskcmxir; 341957-Fvjtqjqvaqi, Total; 337142-VAI-Q (Total); 867789-Purrt LDL-P; 567644-MJL Size; 613118-CR-VG Scorewas developed and its performance characteristics determinedby [employer] It has not been cleared or approved by the Foodand Drug Administration.PATIENT WAS FASTINGPERFORMED BY: Tetherball [address] [id number] BY: [employer] Nuzwgv9376 [facility] [id number] Erythrocyte distribution width (RBC) [Ratio] 13.3 % Normal 11.7-15.4 [facility] Work Phone: Comment on above: Test(s) 019115-IRX-Q ; 135179-IVE-O; 808527-Sccbfpmyizekl; 176249-Iqehcplghsv, Total; 729486-KEU-Q (Total); 967006-Qkmva LDL-P; 908186-KVW Size; 246917-PR-AZ Scorewas developed and its performance characteristics determinedby [employer] It has not been cleared or approved by the Foodand Drug Administration.PATIENT WAS FASTINGPERFORMED BY: Tetherball [address] [id number] BY: [employer] Lvwggp7807 [facility] [id number] Hematocrit (Bld) [Volume fraction] 44.3 % Normal 34.0-46.6 [facility] Work Phone: Comment on above: Test(s) 822509-JYL-R ; 616875-MUM-G; 635835-Jumlugpcmeobh; 303230-Sgmpbncdvwi, Total; 932048-IIZ-D (Total); 368756-Oghvm LDL-P; 834528-LNV Size; 710019-NF-SW Scorewas developed and its performance characteristics determinedby [employer] It has not been cleared or approved by the Foodand Drug Administration.PATIENT WAS FASTINGPERFORMED BY: Tetherball [address] [id number] BY: [employer] Juwlts3452 [facility] [id number] Hemoglobin (Bld) [Mass/Vol] 14.8 g/dL Normal 11.1-15.9 [facility] Work Phone: Comment on above: Test(s) 830518-HDG-D ; 964396-WPM-E; 506314-Lxpoauroblfeg; 093680-Vozkowamkde, Total; 241849-IOY-G (Total); 862565-Zsxms LDL-P; 118647-JRP Size; 819035-VZ-GA Scorewas developed and its performance characteristics determinedby [employer] It has not been cleared or approved by the Foodand Drug Administration.PATIENT WAS FASTINGPERFORMED BY: Tetherball [address] [id number] BY: [employer] Aekxft9563 [facility] [id number] Immature granulocytes (Bld) [#/Vol] 0.0 {x10E3/uL} Normal 0.0-0.1 [facility] Work Phone: Comment on above: Test(s) 723506-GDG-K ; 667166-MSM-Q; 346533-Mnwjepbixnttd; 591760-Gorvtsxsumj, Total; 542755-HHN-I (Total); 760034-Iuymt LDL-P; 540065-CLF Size; 698418-VJ-HS Scorewas developed and its performance characteristics determinedby [employer] It has not been cleared or approved by the Foodand Drug Administration.PATIENT WAS FASTINGPERFORMED BY: Tetherball [address] [id number] BY: [employer] Aoxaml8406 [facility] [id number] Immature granulocytes (Bld) [#/Vol] 0.0 10*3/uL Normal 0.0-0.1 [facility]; [facility] Work Phone: Comment on above: Test(s) 083760-UHQ-J ; 487487-PTS-X; 554430-Snvjdhrcuvtla; 291786-Mgvgvqwfakp, Total; 944810-JTE-T (Total); 695544-Reanb LDL-P; 741711-FQE Size; 293831-OZ-KA Scorewas developed and its performance characteristics determinedby [employer] It has not been cleared or approved by the Foodand Drug Administration.PATIENT WAS FASTINGPERFORMED BY: Tetherball [address] [id number] BY: [employer]6370 [facility]atronNovant Health [facility] [id number] Immature granulocytes/100 WBC (Bld) 0 % Normal [facility] Work Phone: Comment on above: Test(s) 336251-CFO-H ; 089933-FBY-H; 209656-Dorxpwggwprvj; 341974-Jmqewlwhvoj, Total; 461311-NWV-U (Total); 065626-Cszmt LDL-P; 942522-GGW Size; 805396-DO-GJ Scorewas developed and its performance characteristics determinedby [employer] It has not been cleared or approved by the Foodand Drug Administration.PATIENT WAS FASTINGPERFORMED BY: Tetherball [address] [id number] BY: [employer] Tzdujw4585 [facility] [id number] Lymphocytes (Bld) [#/Vol] 2.1 {x10E3/uL} Normal 0.7-3.1 [facility] Work Phone: Comment on above: Test(s) 825959-TWG-E ; 656602-DDH-F; 279681-Wikghcpnytrbg; 494695-Ldbrqlfqavc, Total; 352743-HGM-D (Total); 474623-Bcztl LDL-P; 033745-BHC Size; 923252-NR-KI Scorewas developed and its performance characteristics determinedby [employer] It has not been cleared or approved by the Foodand Drug Administration.PATIENT WAS FASTINGPERFORMED BY: Tetherball [address] [id number] BY: [employer]70 [facility] [id number] Lymphocytes (Bld) [#/Vol] 2.1 10*3/uL Normal 0.7-3.1 [facility]; [facility] Work Phone: Comment on above: Test(s) 035320-YUZ-X ; 563699-JDQ-O; 771858-Luimjjqnbnxjg; 912887-Kzkztgbwrah, Total; 600861-VUG-P (Total); 639792-Pstjh LDL-P; 155614-PVH Size; 287017-HW-TO Scorewas developed and its performance characteristics determinedby [employer] It has not been cleared or approved by the Foodand Drug Administration.PATIENT WAS FASTINGPERFORMED BY: Tetherball [address] [id number] BY: [employer]70 [facility] [id number] Lymphocytes/100 WBC (Bld) 29 % Normal [facility] Work Phone: Comment on above: Test(s) 238638-UEJ-I ; 133153-EUT-S; 230669-Lhobkjdefzogi; 146468-Phprqpfnhiq, Total; 794464-PTG-B (Total); 016556-Xhzwy LDL-P; 579522-AQZ Size; 661358-UI-GS Scorewas developed and its performance characteristics determinedby [employer] It has not been cleared or approved by the Foodand Drug Administration.PATIENT WAS FASTINGPERFORMED BY: Tetherball [address] [id number] BY: JagTaglin6370 [facility] [id number] MCH (RBC) [Entitic mass] 30.6 pg Normal 26.6-33.0 [facility] Internal Medicine Work Phone: Comment on above: Test(s) 604215-VPQ-P ; 627242-UHM-S; 374988-Twivcjjmukhqc; 119553-Xgbkazxeawq, Total; 011291-FFL-C (Total); 301941-Ltwuz LDL-P; 946585-MKR Size; 114399-VO-EJ Scorewas developed and its performance characteristics determinedby [employer] It has not been cleared or approved by the Foodand Drug Administration.PATIENT WAS FASTINGPERFORMED BY: Yebol[address] [id number] BY: [employer]70 [facility] CareScicastsFormerly [facility] [id number] MCHC (RBC) [Mass/Vol] 33.4 g/dL Normal 31.5-35.7 [facility] Internal Medicine Work Phone: Comment on above: Test(s) 076475-MMZ-A ; 114612-LZU-X; 568257-Zbfvsujsnzxfs; 156613-Hzrvvwwugas, Total; 931930-ASM-K (Total); 051617-Hztwc LDL-P; 814924-KGK Size; 203453-JA-PI Scorewas developed and its performance characteristics determinedby [employer] It has not been cleared or approved by the Foodand Drug Administration.PATIENT WAS FASTINGPERFORMED BY: [employer])[address] [place] [address] [id number] BY: [employer]6370 [facility] CareScicastsFormerly [facility] [id number] MCV (RBC) [Entitic vol] 92 fL Normal 79-97 [facility] Internal Medicine Work Phone: Comment on above: Test(s) 756149-QQG-V ; 241930-YFM-H; 653512-Rojvaembnmsch; 217264-Clsroukjodb, Total; 185788-YQZ-D (Total); 871993-Azxsv LDL-P; 586742-QMD Size; 299332-CT-DX Scorewas developed and its performance characteristics determinedby [employer] It has not been cleared or approved by the Foodand Drug Administration.PATIENT WAS FASTINGPERFORMED BY: [employer] [id number] BY: [facility] Vision SciencesMorristown Medical CenterCizbxb6399 [facility] [id number] Monocytes (Bld) [#/Vol] 0.5 {x10E3/uL} Normal 0.1-0.9 [facility] Work Phone: Comment on above: Test(s) 990402-VSJ-M ; 510939-QMY-S; 937350-Plburowhhgwqw; 739796-Ysaeyhtehgp, Total; 691211-XQN-L (Total); 791312-Axjaf LDL-P; 685189-SFQ Size; 136072-KG-PG Scorewas developed and its performance characteristics determinedby [employer] It has not been cleared or approved by the Foodand Drug Administration.PATIENT WAS FASTINGPERFORMED BY: [employer] [address] [id number] BY: [facility] Vision SciencesMorristown Medical CenterFlytbk9331 [facility] [id number] Monocytes (Bld) [#/Vol] 0.5 10*3/uL Normal 0.1-0.9 [facility]; [facility] Work Phone: Comment on above: Test(s) 538577-IEN-P ; 164847-ZJS-Y; 848782-Scntbqgrokglu; 183031-Ivjnvegqzpo, Total; 748999-UTH-C (Total); 701671-Rrwjy LDL-P; 470637-CRY Size; 239148-LV-WP Scorewas developed and its performance characteristics determinedby [employer] It has not been cleared or approved by the Foodand Drug Administration.PATIENT WAS FASTINGPERFORMED BY: [employer] [id number] BY: [facility] Vision SciencesMorristown Medical CenterMvdnrr8812 [facility] [id number] Monocytes/100 WBC (Bld) 7 % Normal [facility] Work Phone: Comment on above: Test(s) 434638-AEK-W ; 342788-PTE-Q; 445659-Irlxratcefqsc; 386404-Jcqfvwdpqdw, Total; 137547-WTE-E (Total); 639591-Ofedi LDL-P; 581653-JUP Size; 820888-HN-BX Scorewas developed and its performance characteristics determinedby [employer] It has not been cleared or approved by the Foodand Drug Administration.PATIENT WAS FASTINGPERFORMED BY: [employer] [address] [id number] BY: [employer] Fjajkv7404 [facility] [id number] Neutrophils (Bld) [#/Vol] 4.5 {x10E3/uL} Normal 1.4-7.0 [facility] Work Phone: Comment on above: Test(s) 190888-DTV-E ; 232503-QZZ-Y; 170692-Gujcbupjykjyp; 570193-Arottmbckzn, Total; 566430-TMV-Y (Total); 244740-Wivuq LDL-P; 555075-BBR Size; 894352-LH-TV Scorewas developed and its performance characteristics determinedby [employer] It has not been cleared or approved by the Foodand Drug Administration.PATIENT WAS FASTINGPERFORMED BY: [employer] [address] [id number] BY: [employer] Fmnkgo7259 [facility] [id number] Neutrophils (Bld) [#/Vol] 4.5 10*3/uL Normal 1.4-7.0 [facility]; [facility] Work Phone: Comment on above: Test(s) 596049-FJN-V ; 164313-IEZ-K; 059753-Orpjkdrofajke; 201413-Zyufclsauwr, Total; 132759-JLC-M (Total); 636761-Hcqrk LDL-P; 063700-BRL Size; 655600-MF-CW Scorewas developed and its performance characteristics determinedby [employer] It has not been cleared or approved by the Foodand Drug Administration.PATIENT WAS FASTINGPERFORMED BY: Tetherball [address] [id number] BY: [employer]70 [facility] [id number] Neutrophils/100 WBC (Bld) 61 % Normal [facility] Work Phone: Comment on above: Test(s) 896551-WRF-G ; 509366-QBZ-B; 179873-Ylarxlfxupcpz; 744216-Iuytsdxveze, Total; 518646-KKS-J (Total); 755462-Oaotd LDL-P; 192559-YWO Size; 354322-NW-QQ Scorewas developed and its performance characteristics determinedby [employer] It has not been cleared or approved by the Foodand Drug Administration.PATIENT WAS FASTINGPERFORMED BY: Yebol[address] [id number] BY: [employer]6370 [facility] [id number] Platelets (Bld) [#/Vol] 212 {x10E3/uL} Normal 150-450 [facility] Work Phone: Comment on above: Test(s) 445096-JZG-Q ; 083790-QTQ-D; 465536-Diivhtytqleyy; 001934-Oevhtfrkbwr, Total; 766760-YTF-P (Total); 240688-Hdrxn LDL-P; 771261-NTV Size; 769304-DC-CU Scorewas developed and its performance characteristics determinedby [employer] It has not been cleared or approved by the Foodand Drug Administration.PATIENT WAS FASTINGPERFORMED BY: Tetherball [address] [id number] BY: JagTaglin6370 [facility] [id number] Platelets (Bld) [#/Vol] 212 10*3/uL Normal 150-450 [facility]; [facility] Work Phone: Comment on above: Test(s) 850064-UQP-B ; 632611-VVT-V; 171608-Pjjoqfsolyciq; 047746-Geephtmnthn, Total; 608629-PZF-Y (Total); 178849-Ekaot LDL-P; 172928-SBK Size; 581117-RZ-XP Scorewas developed and its performance characteristics determinedby [employer] It has not been cleared or approved by the Foodand Drug Administration.PATIENT WAS FASTINGPERFORMED BY: Yebol[address] [id number] BY: Par[employer] Vision SciencesLarry Ville 4928770 [facility] [id number] RBC (Bld) [#/Vol] 4.83 {x10E6/uL} Normal 3.77-5.28 [facility] Internal [facility] Work Phone: Comment on above: Test(s) 937280-BLG-H ; 747313-GBZ-R; 321191-Hbrqjlkwhhpor; 998094-Dfpxxhslgqh, Total; 965471-CCN-B (Total); 988990-Jaurg LDL-P; 534803-YGK Size; 041189-DN-VP Scorewas developed and its performance characteristics determinedby [employer] It has not been cleared or approved by the Foodand Drug Administration.PATIENT WAS FASTINGPERFORMED BY: Tetherball [address] [id number] BY: [employer] Zasqpn1421 [facility] [id number] RBC (Bld) [#/Vol] 4.83 10*6/uL Normal 3.77-5.28 [facility] Internal Medicine; [facility] Work Phone: Comment on above: Test(s) 478493-OZN-B ; 458481-ZDY-Q; 273896-Otvdzqjxfeqae; 616004-Reuxbmsoaeo, Total; 615959-YZC-M (Total); 388324-Qaome LDL-P; 368883-OJU Size; 923227-ZE-DD Scorewas developed and its performance characteristics determinedby [employer] It has not been cleared or approved by the Foodand Drug Administration.PATIENT WAS FASTINGPERFORMED BY: Tetherball [address] [id number] BY: [employer] Iqibnl4430 [facility] [id number] WBC (Bld) [#/Vol] 7.3 {x10E3/uL} Normal 3.4-10.8 [facility] Internal Medicine Work Phone: Comment on above: Test(s) 235671-UVT-X ; 419043-AWJ-E; 614893-Hnmkfvavwiuqs; 818381-Kbdjexntczn, Total; 983844-LNB-V (Total); 875168-Qtjds LDL-P; 610257-XLY Size; 458651-XB-DD Scorewas developed and its performance characteristics determinedby [employer] It has not been cleared or approved by the Foodand Drug Administration.PATIENT WAS FASTINGPERFORMED BY: Tetherball [address] [id number] BY: [employer]6370 [facility]ridgeC[facility]de[facility] Health [id number] WBC (Bld) [#/Vol] 7.3 10*3/uL Normal 3.4-10.8 [facility] Internal Medicine; [facility] Internal Medicine Work Phone: Comment on above: Test(s) 161866-FBO-L ; 522168-BJZ-P; 066254-Bwcvskytkwrvv; 133322-Nokvvnobxpb, Total; 132293-DJL-U (Total); 067917-Zjkpp LDL-P; 542482-ODG Size; 389915-NL-VS Scorewas developed and its performance characteristics determinedby [employer] It has not been cleared or approved by the Foodand Drug Administration.PATIENT WAS FASTINGPERFORMED BY: Tetherball [address] [id number] BY: [employer]6370 [facility] [id number] METABOLIC PANEL, COMPREHENSI VE (91460)Ordered By: Hollow Handle Knife Assembler on 08-16-2020 Albumin [Mass/Vol] 4.2 g/dL Normal 3.8-4.8 [facility] Internal Medicine Work Phone: Comment on above: Test(s) 337207-YXO-O ; 651113-EUP-G; 126218-Lyowqijxdqdvw; 742469-Deurwekoajh, Total; 885984-PUD-U (Total); 591353-Zlbgg LDL-P; 872608-GMJ Size; 211750-UY-VO Scorewas developed and its performance characteristics determinedby [employer] It has not been cleared or approved by the Foodand Drug Administration.PATIENT WAS FASTINGPERFORMED BY: Tetherball [address] [id number] BY: [employer] Oilcxx5988 [facility] [id number] Albumin/Globulin [Mass ratio] 1.6 {ratio} Normal 1.2-2.2 [facility] Work Phone: Comment on above: Test(s) 664041-FPI-V ; 405193-MXX-Z; 388928-Dhbedfzsrmfqg; 141807-Wchbxbaxcgm, Total; 620820-RLF-H (Total); 472192-Unpqg LDL-P; 154598-MYH Size; 080712-GX-KE Scorewas developed and its performance characteristics determinedby [employer] It has not been cleared or approved by the Foodand Drug Administration.PATIENT WAS FASTINGPERFORMED BY: Tetherball [address] [id number] BY: [employer]6370 [facility] [id number] ALP [Catalytic activity/Vol] 100 [iU]/L Normal 39-117 [facility] Work Phone: Comment on above: Test(s) 758552-ZTM-R ; 779503-AEL-H; 531298-Bnwnozbinnqic; 895076-Qjiwjfuoeqy, Total; 596617-WAR-P (Total); 162780-Vniip LDL-P; 556070-YSZ Size; 753338-OI-UX Scorewas developed and its performance characteristics determinedby [employer] It has not been cleared or approved by the Foodand Drug Administration.PATIENT WAS FASTINGPERFORMED BY: Tetherball [address] [id number] BY: [employer] Xkcuyb9492 [facility] [id number] ALP [Catalytic activity/Vol] 100 U/L Normal 39-117 [facility]; [facility] Work Phone: Comment on above: Test(s) 399319-GGL-N ; 240571-HOK-A; 522661-Ztoafamnwesmg; 441922-Kmtuuijtjnd, Total; 479892-WLD-U (Total); 990340-Suhfk LDL-P; 156686-ILW Size; 369061-UC-DX Scorewas developed and its performance characteristics determinedby [employer]. It has not been cleared or approved by the Foodand Drug Administration.PATIENT WAS FASTINGPERFORMED BY: Tetherball [address] [id number] BY: [employer] Debvuo8936 [facility] [id number] ALT [Catalytic activity/Vol] 11 [iU]/L Normal 0-32 [facility] Internal Medicine Work Phone: Comment on above: Test(s) 507951-MFL-K ; 857012-FYQ-C; 101665-Cbgnwisjjcfvk; 529417-Hdrlobquvcs, Total; 457678-COI-T (Total); 628703-Oarph LDL-P; 770796-MVS Size; 636179-VK-XT Scorewas developed and its performance characteristics determinedby [employer] It has not been cleared or approved by the Foodand Drug Administration.PATIENT WAS FASTINGPERFORMED BY: Tetherball [address] [id number] BY: [employer] Umkrra4640 [facility] [id number] ALT [Catalytic activity/Vol] 11 U/L Normal 0-32 [facility]; [facility] Work Phone: Comment on above: Test(s) 423119-JKI-K ; 639883-ASR-I; 813105-Ckjevusxhwbic; 515837-Ncjoughglby, Total; 626220-ZCS-Q (Total); 556677-Helxt LDL-P; 002151-ROC Size; 061308-QR-EQ Scorewas developed and its performance characteristics determinedby [employer]. It has not been cleared or approved by the Foodand Drug Administration.PATIENT WAS FASTINGPERFORMED BY: [employer]com[address] [id number] BY: [employer] Vision SciencesMorristown Medical CenterVnxbyl1526 [facility] [id number] AST [Catalytic activity/Vol] 11 [iU]/L Normal 0-40 [facility] Work Phone: Comment on above: Test(s) 469683-UKH-U ; 090224-OYI-V; 629013-Ebsrwtfyqwpef; 468438-Ruykzjyyvlt, Total; 704211-DHS-L (Total); 617169-Jpbxx LDL-P; 978906-IHW Size; 811162-GQ-MN Scorewas developed and its performance characteristics determinedby [employer] It has not been cleared or approved by the Foodand Drug Administration.PATIENT WAS FASTINGPERFORMED BY: Tetherball [address] [id number] BY: [employer]6370 [place] DNAtriXNovant Health Clemmons Medical Center [id number] AST [Catalytic activity/Vol] 11 U/L Normal 0-40 [facility]; [facility] Internal Medicine Work Phone: Comment on above: Test(s) 766429-UZE-N ; 105540-NSU-J; 905770-Aivtjrzdpngvp; 572642-Thcmomjryvl, Total; 704309-ZEF-H (Total); 546401-Bebnr LDL-P; 798097-WXE Size; 085303-HY-OP Scorewas developed and its performance characteristics determinedby [employer] It has not been cleared or approved by the Foodand Drug Administration.PATIENT WAS FASTINGPERFORMED BY: Tetherball [address] [id number] BY: [employer] Vision SciencesMorristown Medical CenterKceifa3537 [place] DNAtriXNovant Health Clemmons Medical Center [id number] Bilirubin [Mass/Vol] 0.4 mg/dL Normal 0.0-1.2 [facility] Internal Medicine Work Phone: Comment on above: Test(s) 003124-CUE-E ; 910201-ZTO-R; 304222-Rvzqhmymsowln; 326698-Oljiiaetboc, Total; 667737-CVI-B (Total); 811149-Hflmr LDL-P; 993801-QCM Size; 875788-NT-FB Scorewas developed and its performance characteristics determinedby [employer] It has not been cleared or approved by the Foodand Drug Administration.PATIENT WAS FASTINGPERFORMED BY: Yebol[address] [id number] BY: [employer]70 [facility] [id number] Calcium [Mass/Vol] 9.1 mg/dL Normal 8.7-10.3 [facility] Internal Medicine Work Phone: Comment on above: Test(s) 288282-CMV-I ; 024763-IJD-Y; 952087-Zoeitzjnafzsv; 115258-Stpruodjpyo, Total; 379613-ETI-E (Total); 967940-Pnirw LDL-P; 204354-CZK Size; 925615-LY-VY Scorewas developed and its performance characteristics determinedby [employer] It has not been cleared or approved by the Foodand Drug Administration.PATIENT WAS FASTINGPERFORMED BY: Tetherball [address] [id number] BY: [employer]6370 [facility] [id number] Chloride [Moles/Vol] 103 mmol/L Normal 96-106 [facility] Internal Medicine Work Phone: Comment on above: Test(s) 285211-PJS-J ; 679646-VLT-P; 785839-Vlqbuqukqfjfv; 525132-Xdsuqqaptac, Total; 953218-WOQ-K (Total); 943863-Efzpd LDL-P; 829746-PYF Size; 622256-OJ-TX Scorewas developed and its performance characteristics determinedby [employer] It has not been cleared or approved by the Foodand Drug Administration.PATIENT WAS FASTINGPERFORMED BY: Tetherball [address] [id number] BY: [employer] Vvxbqo8662 [facility] [id number] CO2 [Moles/Vol] 27 mmol/L Normal 20-29 [facility] Internal Medicine Work Phone: Comment on above: Test(s) 913413-SBC-X ; 729977-CZC-O; 236646-Ajiwlvukpkknp; 954619-Xbissslxedx, Total; 459232-ARZ-A (Total); 175488-Cycaj LDL-P; 391193-KMT Size; 394956-AW-QF Scorewas developed and its performance characteristics determinedby [employer] It has not been cleared or approved by the Foodand Drug Administration.PATIENT WAS FASTINGPERFORMED BY: Tetherball [address] [id number] BY: [employer]6370 [facility] [id number] Creatinine [Mass/Vol] 0.55 mg/dL Abnormal 0.57-1.00 Com [facility] Internal Medicine Work Phone: Comment on above: Test(s) 828288-QIF-H ; 841351-MZE-I; 439899-Aeeaioktdutkp; 456405-Arvxmymnskx, Total; 467608-VLQ-T (Total); 684880-Lpzmd LDL-P; 018785-SGX Size; 359133-NV-GN Scorewas developed and its performance characteristics determinedby [employer] It has not been cleared or approved by the Foodand Drug Administration.PATIENT WAS FASTINGPERFORMED BY: Tetherball [address] [id number] BY: [employer] Wtivas5065 [facility] [id number] GFR/1.73 sq M predicted among blacks CKD-EPI (S/P/Bld) [Vol rate/Area] 115 mL/min/1.73 Normal [facility] Internal Medicine Work Phone: Comment on above: Test(s) 997631-PPA-J ; 991841-WOK-P; 496021-Dkzlfhvimzckc; 493496-Cylctlhetwk, Total; 968522-NTG-N (Total); 423336-Kyqdn LDL-P; 652527-LMR Size; 807218-ZR-YT Scorewas developed and its performance characteristics determinedby [employer] It has not been cleared or approved by the Foodand Drug Administration.PATIENT WAS FASTINGPERFORMED BY: Tetherball [address] [id number] BY: [employer] Fyvjqd9483 [facility] [id number] GFR/1.73 sq M predicted among non-blacks CKD-EPI (S/P/Bld) [Vol rate/Area] 99 mL/min/1.73 Normal [facility] Work Phone: Comment on above: Test(s) 334126-YCN-T ; 039349-UXI-Z; 446688-Euvnfccggpqnt; 366807-Wnirdkzpcch, Total; 130508-NTO-M (Total); 597474-Qkepc LDL-P; 818241-MEG Size; 341749-BD-VX Scorewas developed and its performance characteristics determinedby [employer] It has not been cleared or approved by the Foodand Drug Administration.PATIENT WAS FASTINGPERFORMED BY: Tetherball [address] [id number] BY: [employer] Nytavj7659 [facility] [id number] Globulin (S) [Mass/Vol] 2.7 g/dL Normal 1.5-4.5 [facility] Work Phone: Comment on above: Test(s) 261745-BLU-A ; 370666-OIA-L; 686642-Lskoyrpjnncxu; 543029-Bqplpotqzdv, Total; 233648-HZF-W (Total); 412766-Gddhd LDL-P; 457709-YOW Size; 903787-TE-VE Scorewas developed and its performance characteristics determinedby [employer] It has not been cleared or approved by the Foodand Drug Administration.PATIENT WAS FASTINGPERFORMED BY: Tetherball [address] [id number] BY: [employer]6370 [facility] [id number] Glucose [Mass/Vol] 159 mg/dL Abnormal 65-99 [facility] Internal Medicine Work Phone: Comment on above: Test(s) 704457-RKY-U ; 431669-OUW-I; 423047-Znubqubrqhwav; 286584-Spiblifvcoh, Total; 307058-WUR-R (Total); 530830-Jwkcc LDL-P; 796467-CJQ Size; 582332-ZG-AJ Scorewas developed and its performance characteristics determinedby [employer] It has not been cleared or approved by the Foodand Drug Administration.PATIENT WAS FASTINGPERFORMED BY: Yebol[address] [id number] BY: [employer]6370 [facility] [id number] Potassium [Moles/Vol] 4.5 mmol/L Normal 3.5-5.2 [facility] Internal [facility] Work Phone: Comment on above: Test(s) 905151-MPU-B ; 138809-PJD-S; 596759-Oftswxaiggxwa; 445628-Yruckgindoj, Total; 404212-JKJ-H (Total); 890939-Apnyz LDL-P; 972998-WLR Size; 723198-OV-CH Scorewas developed and its performance characteristics determinedby [employer] It has not been cleared or approved by the Foodand Drug Administration.PATIENT WAS FASTINGPERFORMED BY: Tetherball [address] [id number] BY: [employer] Afhtke5959 [facility] [id number] Protein [Mass/Vol] 6.9 g/dL Normal 6.0-8.5 [facility] Internal Medicine Work Phone: Comment on above: Test(s) 402335-CUV-F ; 737615-EAH-L; 887246-Mgubphmkygbwt; 451197-Yliqzohcgxx, Total; 695036-PVN-R (Total); 392638-Gtonl LDL-P; 846686-WLM Size; 826678-DV-JW Scorewas developed and its performance characteristics determinedby [employer] It has not been cleared or approved by the Foodand Drug Administration.PATIENT WAS FASTINGPERFORMED BY: Tetherball [address] [id number] BY: [employer]70 [facility] [id number] Sodium [Moles/Vol] 143 mmol/L Normal 134-144 [facility] Internal Medicine Work Phone: Comment on above: Test(s) 985187-QYZ-U ; 056323-PKS-G; 474784-Uhcywpdrvmcof; 826281-Grtzitvrnhb, Total; 596562-GGH-P (Total); 573141-Gdcaq LDL-P; 079219-PGV Size; 002827-YY-UA Scorewas developed and its performance characteristics determinedby [employer] It has not been cleared or approved by the Foodand Drug Administration.PATIENT WAS FASTINGPERFORMED BY: Tetherball [address] [id number] BY: [employer] DNAtriXNovant Health [facility] [id number] Urea nitrogen [Mass/Vol] 15 mg/dL Normal 8- [facility] Internal Medicine Work Phone: Comment on above: Test(s) 323071-HQZ-F ; 981911-DHK-G; 581396-Mewadljmgbaxn; 707079-Ctbvrpjbvps, Total; 840521-ONL-W (Total); 359212-Txytz LDL-P; 924689-KXP Size; 810308-KU-ZH Scorewas developed and its performance characteristics determinedby [employer] It has not been cleared or approved by the Foodand Drug Administration.PATIENT WAS FASTINGPERFORMED BY: Tetherball [address] [id number] BY: ProcureSafeMorristown Medical CenterIhfbhw5454 [facility] [id number] Urea nitrogen/Creatinine [Mass ratio] 27 mg/mg Normal 12- [facility] Internal Medicine Work Phone: Comment on above: Test(s) 604749-TLE-H ; 149097-SAF-H; 918788-Natsnipwiiejz; 623997-Csutayjtrlr, Total; 613554-DAE-J (Total); 702500-Tptqm LDL-P; 196455-XLS Size; 835652-WE-ZV Scorewas developed and its performance characteristics determinedby [employer] It has not been cleared or approved by the Foodand Drug Administration.PATIENT WAS FASTINGPERFORMED BY: Tetherball [address] [id number] BY: [employer]70 [facility]ridgeC[facility]delet Health [id number] MICROALBUMINOrdered By: Syst em Buggy Loader on 08-16-2020 Albumin DL <= 20 mg/L (U) [Mass/Vol] 214.7 ug/mL Normal [facility] Work Phone: Comment on above: Test(s) 381923-LTG-J ; 534211-ZMS-T; 632017-Cvmgdgncgpzdw; 485737-Wkeoxsmmgab, Total; 583156-LRA-S (Total); 863710-Epgiw LDL-P; 186357-TUA Size; 340932-FH-GP Scorewas developed and its performance characteristics determinedby [employer] It has not been cleared or approved by the Foodand Drug Administration.PATIENT WAS FASTINGPERFORMED BY: Tetherball [address] [id number] BY: [employer] DNAtriXNovant Health Clemmons [facility] Center [id number] Albumin/Creatinine (U) [Mass ratio] 187 {mg/g_creat} Abnormal 0-29 [facility] Work Phone: Comment on above: Normal: 0 - 29 Moder ately increased: 30 - 300 Severely increased: >300 Test(s) 919848-TEE-I ; 852421-LDY-A; 984915-Xmpyhdohjvzim; 922788-Fwxnwlmhwpl, Total; 402309-DPX-Y (Total); 939434-Bhozb LDL-P; 498116-QZX Size; 879402-PO-HP Scorewas developed and its performance characteristics determinedby [employer] It has not been cleared or approved by the Foodand Drug Administration.PATIENT WAS FASTINGPERFORMED BY: Tetherball [address] [id number] BY: [employer] MeddikFormerly [facility] [id number] Creatinine (U) [Mass/Vol] 114.9 mg/dL Normal [facility] Work Phone: Comment on above: Test(s) 728207-CGX-H ; 983650-UOT-V; 096258-Tsmgfygpqonpb; 180266-Ueethfjafvh, Total; 388047-EAX-F (Total); 542801-Xnygf LDL-P; 655144-AJM Size; 718446-GE-BF Scorewas developed and its performance characteristics determinedby [employer] It has not been cleared or approved by the Foodand Drug Administration.PATIENT WAS FASTINGPERFORMED BY: Yebol[address] [id number] BY: [employer]6370 [facility] [id number] NMR Profile (10196)Ordered B y: Hollow Handle Knife Assembler on 08-16-2020 Cholesterol [Mass/Vol] 168 mg/dL Normal 100-199 [facility] Internal Medicine Work Phone: Comment on above: Test(s) 186658-FAW-O ; 244001-LOY-H; 785568-Bkasbcwhamemt; 372108-Ujrqomnabys, Total; 803500-LMI-U (Total); 985836-Hwqqf LDL-P; 950395-IEM Size; 300554-TP-OA Scorewas developed and its performance characteristics determinedby [employer] It has not been cleared or approved by the Foodand Drug Administration.PATIENT WAS FASTINGPERFORMED BY: Tetherball [address] [id number] BY: [employer]6370 [facility] [id number] Lipoprotein.alpha [Moles/Vol] 34.7 umol/L Normal [facility] Internal Medicine Work Phone: Comment on above: Test(s) 875960-CRE-N ; 622431-AFB-Z; 176156-Cijujtezsmrof; 876673-Icguqgltgyr, Total; 110649-OCB-P (Total); 988394-Nzita LDL-P; 891737-ZRI Size; 361456-RB-UC Scorewas developed and its performance characteristics determinedby [employer]. It has not been cleared or approved by the Foodand Drug Administration.PATIENT WAS FASTINGPERFORMED BY: BN [facility] Twnnxgfmbh0709 [facility] [id number] BY: CB [facility] Kekzyo0701 [facility] [id number] Lipoprotein.beta.subpa rticle [Entitic length] 20.1 nm Abnormal [...] not afterLDL-P is taken into account. Test(s) 064505-WCJ-Y ; 139535-YSJ-Q; 753822-Dnucfumosccog; 256487-Iacblgbfbch, Total; 096356-YZZ-Y (Total); 521717-Yiueh LDL-P; 454156-BPQ Size; 721888-US-JE Scorewas developed and its performance characteristics determinedby [employer] It has not been cleared or approved by the Foodand Drug Administration.PATIENT WAS FASTINGPERFORMED BY: Tetherball [address] [id number] BY: [employer] Hkfjgy1293 [place] DNAtriXNovant Health Clemmons Medical [facility] [id number] Lipoprotein.beta.subpa rticle [Moles/Vol] 1064 nmol/L Abnormal [facility] Work Phone: Comment on above: Low < 1000 Moderate 1000 - 1299 Borderline-High 1300 - 1599 High 1600 - 2000 Very High > 2000 Test(s) 328908-OBQ-Y ; 826891-RVF-M; 754185-Tdokvalkhwssg; 144270-Ooejbondjdj, Total; 455285-RPJ-G (Total); 389839-Fcjds LDL-P; 544864-GQD Size; 872343-AE-IP Scorewas developed and its performance characteristics determinedby [employer] It has not been cleared or approved by the Foodand Drug Administration.PATIENT WAS FASTINGPERFORMED BY: Tetherball [address] [id number] BY: [employer]70 [facility]ridgeC[facility] [id number] Lipoprotein.beta.subpa rticle.small [Moles/Vol] 672 nmol/L Abnormal [facility] Work Phone: Comment on above: Test(s) 272361-JEZ-U ; 263936-GQA-I; 868823-Dhihrmqwcjukm; 052523-Cftupuepcpp, Total; 492997-TAF-G (Total); 424654-Tcsnz LDL-P; 978333-COL Size; 038810-HC-RH Scorewas developed and its performance characteristics determinedby [employer] It has not been cleared or approved by the Foodand Drug Administration.PATIENT WAS FASTINGPERFORMED BY: Tetherball [address] [id number] BY: [employer]70 [facility] [id number] Triglyceride [Mass/Vol] 198 mg/dL Abnormal 0-149 [facility] Work Phone: Comment on above: Test(s) 722467-GKL-Q ; 519468-VOA-R; 044216-Sngyblyxcihqn; 980563-Gckvqzczgpx, Total; 546040-ASW-Z (Total); 450150-Jhtxb LDL-P; 726760-LVN Size; 263450-ON-BI Scorewas developed and its performance characteristics determinedby [employer] It has not been cleared or approved by the Foodand Drug Administration.PATIENT WAS FASTINGPERFORMED BY: Tetherball [address] [id number] BY: [employer]6370 [facility] [id number] NMR Profile (62341) 43 mg/dL Normal [facility] Internal Medicine Work Phone: Comment on above: Test(s) 344897-LGS-F ; 210499-QUS-S; 524952-Pgriodzugonwl; 646112-Wjhlekoywvf, Total; 544113-UZP-O (Total); 100364-Ntgkq LDL-P; 841398-NSB Size; 981132-NB-QU Scorewas developed and its performance characteristics determinedby [employer] It has not been cleared or approved by the Foodand Drug Administration.PATIENT WAS FASTINGPERFORMED BY: Tetherball Vwihjebkii5508 [facility] [id number] BY: [employer] Zarnoe8450 [facility] [id number] NMR Profile (39597) 91 mg/dL Normal 0-99 [facility] Internal Medicine Work Phone: Comment on above: . Optimal < 100 Abov e optimal 100 - 129 Borderline 130 - 159 High 160 - 189 Very high > 189 . Test(s) 873128-MQK-F ; 307161-AJX-F; 215654-Qjptxooancbct; 592484-Gbcdmqolnkv, Total; 911801-MVZ-W (Total); 821266-Vamgy LDL-P; 504820-LON Size; 335473-HC-UD Scorewas developed and its performance characteristics determinedby [employer] It has not been cleared or approved by the Foodand Drug Administration.PATIENT WAS FASTINGPERFORMED BY: Tetherball Jixyurqrro1464 [facility] [id number] BY: Par[employer] Vision SciencesMorristown Medical CenterHubifl5876 [facility] [id number] NMR Profile (57568) 198 mg/dL Abnormal 0-149 Compr ens[facility] Internal Medicine; [facility] Work Phone: NMR Profile (45767) 168 mg/dL Normal 100-199 Compr ens[facility] Internal Medicine; [facility] Work Phone: TSH (THYROID STIMULATING HOR CECILIA) (96342)Ordered By: Hollow Handle Knife Assembler on 08-16-2020 TSH Qn 1.850 {uIU/mL} Normal 0.450-4.500 [facility] Internal Medicine Work Phone: Comment on above: Test(s) 766576-GRE-O ; 529035-OQE-C; 556137-Zpsjlscxfrxqh; 087896-Mxhbxzmcvwh, Total; 099155-AEJ-G (Total); 883200-Kytll LDL-P; 137048-XGV Size; 244717-UX-IF Scorewas developed and its performance characteristics determinedby [employer] It has not been cleared or approved by the Foodand Drug Administration.PATIENT WAS FASTINGPERFORMED BY: Tetherball Mpmmegingy1213 [facility] [id number] BY: Par[employer] Vision SciencesMorristown Medical CenterMvhxwc6286 [facility] [id number] Blood Glucose , Office ([phone])Ordered By: Tracy Kapadia on 04-28-2020 Glucose Glucometer (BldC) [Moles/Vol] 126 1 Normal [facility] Work Phone: HgA1C , Office ([phone])Ordere d By: Tracy Kapadia on 04-28-2020 HbA1c (Bld) [Mass fraction] 8.2 % Abnormal 4.6 - 7.1 [facility] Work Phone: HgA1C , Office ([phone])Ordere d By: Kiki Cain on 01-21-2020 HbA1c (Bld) [Mass fraction] 7.5 % Abnormal 4.6 - 7.1 [facility] Work Phone: CALCIFEDIOL (89464)Ordered B y: Hollow Handle Knife Assembler on 01-14-2020 25-Hydroxyvitamin D2+25-Hydroxyvitamin D3 [Mass/Vol] 37.1 ng/mL Normal 30.0-100.0 [facility] Work Phone: Comment on above: Vitamin D deficiency has been defined by the [place] of[place]icine and an Endocrine Society practice guideline as alevel of serum 25-OH vitamin D less than 20 ng/mL (1,2).The Endocrine Society went on to further define vitamin Dinsufficiency as a level between 21 and 29 ng/mL (2).1. IOM ([place] of Medicine). 2010. Dietary reference intakes for calcium and D. [place]: The National Academies Press.2. Jenna MF, Melissa HANSEN, Faraz DOWD, et al. Evaluation, treatment, and prevention of vitamin D deficiency: an Endocrine Society clinical practice guideline. JCEM. 2010; 96(7):1911-30. PATIENT WAS FASTINGP ERFORMED BY: [employer] for [employer]70 [facility] [id number] CBC, PLATELETS & AUT DIFF (8 3154)Ordered By: Hollow Handle Knife Assembler on 01-14-2020 Basophils (Bld) [#/Vol] 0.0 {x10E3/uL} Normal 0.0-0.2 [facility] Work Phone: Comment on above: PATIENT WAS FASTINGP ERFORMED BY: SHIFT LabBR Supplyrp Uyndbr[address] [place] [facility] [place] [id number] Basophils (Bld) [#/Vol] 0.0 10*3/uL Normal 0.0-0.2 [facility]; [facility] Work Phone: Comment on above: PATIENT WAS FASTINGP ERFORMED BY: [place] [id number] Basophils/100 WBC (Bld) 0 % Normal [facility] Work Phone: Comment on above: PATIENT WAS FASTINGP ERFORMED BY: [facility] RoadFormerly [facility] Hospitalin [place] [id number] Eosinophils (Bld) [#/Vol] 0.2 {x10E3/uL} Normal 0.0-0.4 [facility] Work Phone: Comment on above: PATIENT WAS FASTINGP ERFORMED BY: [facility]6370 [facility] [id number] Eosinophils (Bld) [#/Vol] 0.2 10*3/uL Normal 0.0-0.4 [facility]; [facility] Work Phone: Comment on above: PATIENT WAS FASTINGP ERFORMED BY: [place] 6521770 [facility] [id number] Eosinophils/100 WBC (Bld) 3 % Normal [facility] Work Phone: Comment on above: PATIENT WAS FASTINGP ERFORMED BY: [place] 6521770 [facility] [id number] Erythrocyte distribution width (RBC) [Ratio] 13.0 % Normal 11.7-15.4 [facility] Work Phone: Comment on above: PATIENT WAS FASTINGP ERFORMED BY: [facility]6370 [facility] [id number] Hematocrit (Bld) [Volume fraction] 45.9 % Normal 34.0-46.6 [facility] Work Phone: Comment on above: PATIENT WAS FASTINGP ERFORMED BY: [facility]6370 [facility] [id number] Hemoglobin (Bld) [Mass/Vol] 15.0 g/dL Normal 11.1-15.9 [facility] Work Phone: Comment on above: PATIENT WAS FASTINGP ERFORMED BY: [facility] [facility] [id number] Immature granulocytes (Bld) [#/Vol] 0.0 {x10E3/uL} Normal 0.0-0.1 [facility] Work Phone: Comment on above: PATIENT WAS FASTINGP ERFORMED BY: [facility]Cross[facility] Ijbydw0149 [address]ridge RoadDublin [place] [id number] Immature granulocytes (Bld) [#/Vol] 0.0 10*3/uL Normal 0.0-0.1 [facility]; [facility] Work Phone: Comment on above: PATIENT WAS FASTINGP ERFORMED BY: LabTr[facility] RoadDublin [place] [id number] Immature granulocytes/100 WBC (Bld) 0 % Normal [facility] Work Phone: Comment on above: PATIENT WAS FASTINGP ERFORMED BY: LabTr[facility]6[address] Roadblin [place] [id number] Lymphocytes (Bld) [#/Vol] 2.1 {x10E3/uL} Normal 0.7-3.1 [facility] Work Phone: Comment on above: PATIENT WAS FASTINGP ERFORMED BY: [facility] [facility]in [place] [id number] Lymphocytes (Bld) [#/Vol] 2.1 10*3/uL Normal 0.7-3.1 [facility] Internal Medicine; [facility] Work Phone: Comment on above: PATIENT WAS FASTINGP ERFORMED BY: [facility]Tr[facility] [facility]in [place] [id number] Lymphocytes/100 WBC (Bld) 32 % Normal [facility] Work Phone: Comment on above: PATIENT WAS FASTINGP ERFORMED BY: [facility]Tr[facility] [facility]in [place] [id number] MCH (RBC) [Entitic mass] 29.8 pg Normal 26.6-33.0 [facility] Internal Medicine Work Phone: Comment on above: PATIENT WAS FASTINGP ERFORMED BY: [facility]Tr[facility] [facility] Centerblin [place] [id number] MCHC (RBC) [Mass/Vol] 32.7 g/dL Normal 31.5-35.7 [facility] prehensive Internal Medicine Work Phone: Comment on above: PATIENT WAS FASTINGP ERFORMED BY: CODY LabCross[facility] Hzxpcs3927 [address] RoadDublin [place] [id number] MCV (RBC) [Entitic vol] 91 fL Normal 79-97 [facility] Work Phone: Comment on above: PATIENT WAS FASTINGP ERFORMED BY: CODY [facility]Cross[facility] Quxgji5314 [address] RoadDublin [place] [id number] Monocytes (Bld) [#/Vol] 0.4 {x10E3/uL} Normal 0.1-0.9 [facility] Work Phone: Comment on above: PATIENT WAS FASTINGP ERFORMED BY: [facility]Cross[facility] Eniblv0292 [address] RoadDublin [place] [id number] Monocytes (Bld) [#/Vol] 0.4 10*3/uL Normal 0.1-0.9 [facility]; [facility] Work Phone: Comment on above: PATIENT WAS FASTINGP ERFORMED BY: [facility] Atmxlr90[address] RoadDublin [place] [id number] Monocytes/100 WBC (Bld) 6 % Normal [facility] Work Phone: Comment on above: PATIENT WAS FASTINGP ERFORMED BY: [facility]Cross[facility] Zorync[address] RoadDublin [place] [id number] Neutrophils (Bld) [#/Vol] 3.8 {x10E3/uL} Normal 1.4-7.0 [facility] Work Phone: Comment on above: PATIENT WAS FASTINGP ERFORMED BY: LabSoutheast Missouri Community Treatment CenterPmdwsf67[address] RoadDublin [place] [id number] Neutrophils (Bld) [#/Vol] 3.8 10*3/uL Normal 1.4-7.0 [facility]; [facility] Work Phone: Comment on above: PATIENT WAS FASTINGP ERFORMED BY: [facility] Ubzpue4[address] RoadDublin [place] [id number] Neutrophils/100 WBC (Bld) 59 % Normal [facility] Work Phone: Comment on above: PATIENT WAS FASTINGP ERFORMED BY: CODY [facility] Vxeyvz3131 [address] RoadDublin [place] [id number] Platelets (Bld) [#/Vol] 234 {x10E3/uL} Normal 150-450 [facility] Work Phone: Comment on above: PATIENT WAS FASTINGP ERFORMED BY: CB [facility] Vlvtkx5035 [address] RoadDublin [place] [id number] Platelets (Bld) [#/Vol] 234 10*3/uL Normal 150-450 [facility]; [facility] Work Phone: Comment on above: PATIENT WAS FASTINGP ERFORMED BY: CB [facility] Axffnt5842 [address] RoadDublin [place] [id number] RBC (Bld) [#/Vol] 5.03 {x10E6/uL} Normal 3.77-5.28 [facility] Internal Medicine Work Phone: Comment on above: PATIENT WAS FASTINGP ERFORMED BY: CB [facility] Shvjqa0121 [address] RoadDublin [place] [id number] RBC (Bld) [#/Vol] 5.03 10*6/uL Normal 3.77-5.28 [facility]; [facility] Work Phone: Comment on above: PATIENT WAS FASTINGP ERFORMED BY: CODY [facility] Vdlcbg1713 [address] RoadDublin [place] [id number] WBC (Bld) [#/Vol] 6.5 {x10E3/uL} Normal 3.4-10.8 [facility] Internal Medicine Work Phone: Comment on above: PATIENT WAS FASTINGP ERFORMED BY: CB [facility] Osnqhj5788 [address] RoadDublin [place] [id number] WBC (Bld) [#/Vol] 6.5 10*3/uL Normal 3.4-10.8 [facility] Internal Medicine; [facility] Work Phone: Comment on above: PATIENT WAS FASTINGP ERFORMED BY: CB [facility] Jzuysy5986 [address] RoadDublin [place] [id number] LIPID PANEL ([id number])Ordered B y: Hollow Handle Knife Assembler on 01-14-2020 Cholesterol [Mass/Vol] 218 mg/dL Abnormal 100-199 [facility] Work Phone: Comment on above: PATIENT WAS FASTINGP ERFORMED BY: CODY LabAdelita Bijcya5067 [facility] [id number] Cholesterol in HDL [Mass/Vol] 35 mg/dL Abnormal [facility] Work Phone: Comment on above: PATIENT WAS FASTINGP ERFORMED BY: CODY LabCoMorristown Medical CenterScxoai0218 [facility] [id number] Cholesterol in LDL [Mass/Vol] 116 mg/dL Abnormal 0-99 [facility] Work Phone: Comment on above: PATIENT WAS FASTINGP ERFORMED BY: CODY LabKeagansandy YeungFlekpv8721 [facility] [id number] Cholesterol in LDL/Cholesterol in HDL [Mass ratio] 3.3 {ratio} Abnormal 0.0-3.2 [facility] Work Phone: Comment on above: LDL/HDL Ratio Men Wo men 1/2 Avg.Risk 1.0 1.5 Avg.Risk 3.6 3.2 2X Avg.Risk 6.2 5.0 3X Avg.Risk 8.0 6.1 PATIENT WAS FASTINGP ERFORMED BY: CODY [facility]Tr[facility]6370 [facility] [id number] Cholesterol in VLDL [Mass/Vol] 67 mg/dL Abnormal 5-40 [facility] Work Phone: Comment on above: PATIENT WAS FASTINGP ERFORMED BY: CODY [facility]Cross[facility] Futydb7940 [facility] [id number] Triglyceride [Mass/Vol] 336 mg/dL Abnormal 0-149 [facility] Work Phone: Comment on above: PATIENT WAS FASTINGP ERFORMED BY: CODY [facility] Iwvywd2606 [facility] [id number] METABOLIC PANEL, COMPREHENSI VE ([id number])Ordered By: Hollow Handle Knife Assembler on 01-14-2020 Albumin [Mass/Vol] 4.3 g/dL Normal 3.8-4.8 Compre hensive Internal Medicine Work Phone: Comment on above: PATIENT WAS FASTINGP ERFORMED BY: CODY Bridges[address]Dublin [place] [id number] Albumin/Globulin [Mass ratio] 1.7 {ratio} Normal 1.2-2.2 [facility] Work Phone: Comment on above: PATIENT WAS FASTINGP ERFORMED BY: CODY Bridges[address]Dublin [place] [id number] ALP [Catalytic activity/Vol] 101 [iU]/L Normal 39-117 [facility] Work Phone: Comment on above: PATIENT WAS FASTINGP ERFORMED BY: CODY Bridges[address]Dublin [place] [id number] ALP [Catalytic activity/Vol] 101 U/L Normal 39-117 [facility]; [facility] Work Phone: Comment on above: PATIENT WAS FASTINGP ERFORMED BY: CODY Azael Bridges[address]Dublin [place] [id number] ALT [Catalytic activity/Vol] 9 [iU]/L Normal 0-32 [facility] Work Phone: Comment on above: PATIENT WAS FASTINGP ERFORMED BY: Azale Bridges[address]Dublin [place] [id number] ALT [Catalytic activity/Vol] 9 U/L Normal 0-32 [facility]; [facility] Work Phone: Comment on above: PATIENT WAS FASTINGP ERFORMED BY: Azael Yeunglin6370 [address] RoadDublin [place] [id number] AST [Catalytic activity/Vol] 11 [iU]/L Normal 0-40 [facility] Work Phone: Comment on above: PATIENT WAS FASTINGP ERFORMED BY: CODY Yeunglin6370 [address] RoadDublin [place] [id number] AST [Catalytic activity/Vol] 11 U/L Normal 0-40 [facility]; [facility] Work Phone: Comment on above: PATIENT WAS FASTINGP ERFORMED BY: [facility] Xtwdcn7694 [address] RoadDublin [place] [id number] Bilirubin [Mass/Vol] 0.4 mg/dL Normal 0.0-1.2 [facility] Work Phone: Comment on above: PATIENT WAS FASTINGP ERFORMED BY: [facility] Ohzrbt5587 [address] RoadDublin [place] [id number] Calcium [Mass/Vol] 9.1 mg/dL Normal 8.7-10.3 [facility] Internal Medicine Work Phone: Comment on above: PATIENT WAS FASTINGP ERFORMED BY: [facility] Owuime9683 [address] RoadDublin [place] [id number] Chloride [Moles/Vol] 102 mmol/L Normal 96-106 [facility] Work Phone: Comment on above: PATIENT WAS FASTINGP ERFORMED BY: LabCross[facility] Zexnfs3292 [address] RoadDublin [place] [id number] CO2 [Moles/Vol] 25 mmol/L Normal 20-29 [facility] Internal Medicine Work Phone: Comment on above: PATIENT WAS FASTINGP ERFORMED BY: [facility] Nfyodu1583 [address] RoadDublin [place] [id number] Creatinine [Mass/Vol] 0.62 mg/dL Normal 0.57-1.00 [facility] Internal Medicine Work Phone: Comment on above: PATIENT WAS FASTINGP ERFORMED BY: LabCross[facility] Esgsuz6034 [address] RoadDublin [place] [id number] GFR/1.73 sq M predicted among blacks CKD-EPI (S/P/Bld) [Vol rate/Area] 110 mL/min/1.73 Normal [facility] Work Phone: Comment on above: PATIENT WAS FASTINGP ERFORMED BY: [facility] Xwegrx0577 [address] RoadDublin [place] [id number] GFR/1.73 sq M predicted among non-blacks CKD-EPI (S/P/Bld) [Vol rate/Area] 96 mL/min/1.73 Normal [facility] Work Phone: Comment on above: PATIENT WAS FASTINGP ERFORMED BY: CODY LabCross[facility] Xatxbb1250 [address] Roadblin [place] [id number] Globulin (S) [Mass/Vol] 2.6 g/dL Normal 1.5-4.5 [facility] Internal Medicine Work Phone: Comment on above: PATIENT WAS FASTINGP ERFORMED BY: CODY LabCross[facility] Rqkcnk[address] [facility]in [place] [id number] Glucose [Mass/Vol] 130 mg/dL Abnormal 65-99 [facility] Internal Medicine Work Phone: Comment on above: PATIENT WAS FASTINGP ERFORMED BY: CODY LabCross[facility] Wrbjhs[address] [facility] [id number] Potassium [Moles/Vol] 4.0 mmol/L Normal 3.5-5.2 [facility] Internal Medicine Work Phone: Comment on above: PATIENT WAS FASTINGP ERFORMED BY: CODY Aden Jhcouy[address] [facility] [id number] Protein [Mass/Vol] 6.9 g/dL Normal 6.0-8.5 [facility] Internal Medicine Work Phone: Comment on above: PATIENT WAS FASTINGP ERFORMED BY: CODY Aden Fkvord34[address] [facility]in [place] [id number] Sodium [Moles/Vol] 144 mmol/L Normal 134-144 [facility] Internal Medicine Work Phone: Comment on above: PATIENT WAS FASTINGP ERFORMED BY: CODY LabTr[facility]6[address] [facility]in [place] [id number] Urea nitrogen [Mass/Vol] 20 mg/dL Normal 8-27 [facility] Internal Medicine Work Phone: Comment on above: PATIENT WAS FASTINGP ERFORMED BY: CODY LabKeagan Rvekzw[address] [facility]bl[facility] [place] [id number] Urea nitrogen/Creatinine [Mass ratio] 32 mg/mg Abnormal 12-28 [facility] Internal Medicine Work Phone: Comment on above: PATIENT WAS FASTINGP ERFORMED BY: CB [facility] Zxmuoz8753 [address] RoadDublin [place] [id number] TSH (THYROID STIMULATING HOR CECILIA) ([id number])Ordered By: Hollow Handle Knife Assembler on 01-14-2020 TSH Qn 2.670 {uIU/mL} Normal 0.450-4.500 [facility] Internal Medicine Work Phone: Comment on above: PATIENT WAS FASTINGP ERFORMED BY: [facility] Rpauiu1069 [address]ridge RoadDublTen Broeck Hospital [id number] Blood Glucose , Office ([phone])Ordered By: Tracy Kapadia on 05-06-2019 Glucose Glucometer (BldC) [Moles/Vol] 179 1 Normal [facility] Work Phone: HgA1C , Office ([phone])Ordere d By: Madelin Alberto on 05-06-2019 HbA1c (Bld) [Mass fraction] 8.0 % Abnormal 4.6 - 7.1 [facility] Work Phone: Blood Glucose , Office ([phone])Ordered By: Tracy Kapadia on 01-28-2019 Glucose Glucometer (BldC) [Moles/Vol] 132 1 Normal [facility] Work Phone: HgA1C , Office ([phone])Ordere d By: Tracy Kapadia on 01-28-2019 HbA1c (Bld) [Mass fraction] 7.9 % Abnormal 4.6 - 7.1 [facility] Work Phone: CALCIFIDIOL ([phone]) VIT D 25 Ordered By: Hollow Handle Knife Assembler on 01-22-2019 25-Hydroxyvitamin D2+25-Hydroxyvitamin D3 [Mass/Vol] 21.8 ng/mL Abnormal 30.0-100.0 [facility] Work Phone: Comment on above: Vitamin D deficiency has been defined by the [place] of[place]icine and an Endocrine Society practice guideline as alevel of serum 25-OH vitamin D less than 20 ng/mL (1,2).The Endocrine Society went on to further define vitamin Dinsufficiency as a level between 21 and 29 ng/mL (2).1. IOM ([place] of Medicine). 2010. Dietary reference intakes for calcium and D. [place]: The National Academies Press.2. Jenna MF, Melissa NC, Faraz DOWD, et al. Evaluation, treatment, and prevention of vitamin D deficiency: an Endocrine Society clinical practice guideline. JCEM. 2010; 96(7):1911-30. PATIENT WAS FASTINGP ERFORMED BY: [facility] Erobgf5102 [address] RoadDublin [place] [id number] CBC W/AUTO DIFF WBC ([id number])O rdered By: Hollow Handle Knife Assembler on 01-22-2019 Basophils (Bld) [#/Vol] 0.0 {x10E3/uL} Normal 0.0-0.2 [facility] Work Phone: Comment on above: PATIENT WAS FASTINGP ERFORMED BY: [facility] Hlomec0855 [address] RoadDublin [place] [id number] Basophils (Bld) [#/Vol] 0.0 10*3/uL Normal 0.0-0.2 [facility]; [facility] Work Phone: Comment on above: PATIENT WAS FASTINGP ERFORMED BY: [facility] Orssui9892 [address] RoadDublin [place] [id number] Basophils/100 WBC (Bld) 0 % Normal [facility] Work Phone: Comment on above: PATIENT WAS FASTINGP ERFORMED BY: [facility] Nswlma6894 [address] RoadDublin [place] [id number] Eosinophils (Bld) [#/Vol] 0.2 {x10E3/uL} Normal 0.0-0.4 [facility] Work Phone: Comment on above: PATIENT WAS FASTINGP ERFORMED BY: [facility] Aigrox9441 [address] RoadDublin [place] [id number] Eosinophils (Bld) [#/Vol] 0.2 10*3/uL Normal 0.0-0.4 [facility]; [facility] Work Phone: Comment on above: PATIENT WAS FASTINGP ERFORMED BY: [facility] Sijldd8700 [address] RoadDublin [place] [id number] Eosinophils/100 WBC (Bld) 3 % Normal [facility] Work Phone: Comment on above: PATIENT WAS FASTINGP ERFORMED BY: [facility] Mlwunj6009 [facility] [id number] Erythrocyte distribution width (RBC) [Ratio] 13.5 % Normal 12.3-15.4 [facility] Work Phone: Comment on above: PATIENT WAS FASTINGP ERFORMED BY: LabCoMorristown Medical CenterRbbjno3684 [facility] [id number] Hematocrit (Bld) [Volume fraction] 43.6 % Normal 34.0-46.6 [facility] Work Phone: Comment on above: PATIENT WAS FASTINGP ERFORMED BY: LabTr[facility]6370 [facility] [id number] Hemoglobin (Bld) [Mass/Vol] 14.7 g/dL Normal 11.1-15.9 [facility] Work Phone: Comment on above: PATIENT WAS FASTINGP ERFORMED BY: LabTr[facility] Hospital6370 [facility] [id number] Immature granulocytes (Bld) [#/Vol] 0.0 {x10E3/uL} Normal 0.0-0.1 [facility] Work Phone: Comment on above: PATIENT WAS FASTINGP ERFORMED BY: LabCross[facility] Uuwsdg4212 [facility] [id number] Immature granulocytes (Bld) [#/Vol] 0.0 10*3/uL Normal 0.0-0.1 [facility]; [facility] Work Phone: Comment on above: PATIENT WAS FASTINGP ERFORMED BY: LabCross[facility] Eiklbu[address] [facility] [id number] Immature granulocytes/100 WBC (Bld) 0 % Normal [facility] Work Phone: Comment on above: PATIENT WAS FASTINGP ERFORMED BY: [facility] Klxpet[address] [facility] [id number] Lymphocytes (Bld) [#/Vol] 2.2 {x10E3/uL} Normal 0.7-3.1 [facility] Work Phone: Comment on above: PATIENT WAS FASTINGP ERFORMED BY: CODY LabCross[facility] Gwasua[address] [facility]bl[facility] [place] [id number] Lymphocytes (Bld) [#/Vol] 2.2 10*3/uL Normal 0.7-3.1 [facility]; [facility] Work Phone: Comment on above: PATIENT WAS FASTINGP ERFORMED BY: LabTr[facility] Hospital6[address] [facility]in [place] [id number] Lymphocytes/100 WBC (Bld) 34 % Normal [facility] Work Phone: Comment on above: PATIENT WAS FASTINGP ERFORMED BY: CODY LabCross[facility] Yhqupn[address] [facility] [id number] MCH (RBC) [Entitic mass] 30.4 pg Normal 26.6-33.0 [facility] Internal Medicine Work Phone: Comment on above: PATIENT WAS FASTINGP ERFORMED BY: LabTr[facility]6[address] [facility]in [place] [id number] MCHC (RBC) [Mass/Vol] 33.7 g/dL Normal 31.5-35.7 [facility] Internal Medicine Work Phone: Comment on above: PATIENT WAS FASTINGP ERFORMED BY: CODY LabTr[facility]6370 [facility] [place] [id number] MCV (RBC) [Entitic vol] 90 fL Normal 79-97 [facility] Work Phone: Comment on above: PATIENT WAS FASTINGP ERFORMED BY: LabCross[facility] Vqxpqn3453 [address] [facility]in [place] [id number] Monocytes (Bld) [#/Vol] 0.4 {x10E3/uL} Normal 0.1-0.9 [facility] Work Phone: Comment on above: PATIENT WAS FASTINGP ERFORMED BY: LabTr[facility] Hospital6[address]Dublin [place] [id number] Monocytes (Bld) [#/Vol] 0.4 10*3/uL Normal 0.1-0.9 [facility]; [facility] Work Phone: Comment on above: PATIENT WAS FASTINGP ERFORMED BY: CODY [facility] Mrkack3447 [address] RoadDublin [place] [id number] Monocytes/100 WBC (Bld) 6 % Normal [facility] Work Phone: Comment on above: PATIENT WAS FASTINGP ERFORMED BY: CB [facility] Busevj7636 [address] RoadDublin [place] [id number] Neutrophils (Bld) [#/Vol] 3.6 {x10E3/uL} Normal 1.4-7.0 [facility] Work Phone: Comment on above: PATIENT WAS FASTINGP ERFORMED BY: CODY [facility] Mphfon0179 [address] RoadDublin [place] [id number] Neutrophils (Bld) [#/Vol] 3.6 10*3/uL Normal 1.4-7.0 [facility]; [facility] Work Phone: Comment on above: PATIENT WAS FASTINGP ERFORMED BY: CODY [facility] Jflldn1974 [address]Dublin [place] [id number] Neutrophils/100 WBC (Bld) 57 % Normal [facility] Work Phone: Comment on above: PATIENT WAS FASTINGP ERFORMED BY: CODY [facility] Jaqmkv3385 [address] RoadDublin [place] [id number] Platelets (Bld) [#/Vol] 235 {x10E3/uL} Normal 150-379 [facility] Work Phone: Comment on above: PATIENT WAS FASTINGP ERFORMED BY: CB [facility] Aeeswh9740 [address] RoadDublin [place] [id number] Platelets (Bld) [#/Vol] 235 10*3/uL Normal 150-379 [facility]; [facility] Work Phone: Comment on above: PATIENT WAS FASTINGP ERFORMED BY: CB [facility] Cdfsve1565 [address] RoadDublin [place] [id number] RBC (Bld) [#/Vol] 4.83 {x10E6/uL} Normal 3.77-5.28 [facility]ensive Internal [facility] Work Phone: Comment on above: PATIENT WAS FASTINGP ERFORMED BY: CODY LabCosanyd BridgesUjrryh6583 [address] RoadDublin [place] [id number] RBC (Bld) [#/Vol] 4.83 10*6/uL Normal 3.77-5.28 [facility]; [facility] Work Phone: Comment on above: PATIENT WAS FASTINGP ERFORMED BY: CODY [facility] Gkkjxs5981 [address] Roadblin [place] [id number] WBC (Bld) [#/Vol] 6.4 {x10E3/uL} Normal 3.4-10.8 [facility] Internal Medicine Work Phone: Comment on above: PATIENT WAS FASTINGP ERFORMED BY: CODY [facility] Fjaqtw2477 [address] [facility]in [place] [id number] WBC (Bld) [#/Vol] 6.4 10*3/uL Normal 3.4-10.8 [facility] Internal Medicine; [facility] Work Phone: Comment on above: PATIENT WAS FASTINGP ERFORMED BY: CODY LabCosandy Haprzi[address] [facility] [place] [id number] LIPID PANEL ([id number])Ordered B y: Hollow Handle Knife Assembler on 01-22-2019 Cholesterol [Mass/Vol] 204 mg/dL Abnormal 100-199 Co [facility]ensive [facility] Work Phone: Comment on above: PATIENT WAS FASTINGP ERFORMED BY: CODY [facility] Ylmbaq8002 [address] [facility]in [place] [id number] Cholesterol in HDL [Mass/Vol] 36 mg/dL Abnormal [facility] Work Phone: Comment on above: PATIENT WAS FASTINGP ERFORMED BY: CODY [facility] Xzewgy[address] [facility]bl[facility] [place] [id number] Cholesterol in LDL [Mass/Vol] 129 mg/dL Abnormal 0-99 [facility] Work Phone: Comment on above: PATIENT WAS FASTINGP ERFORMED BY: CODY [facility] Qmwglt[address] [facility] [id number] Cholesterol in LDL/Cholesterol in HDL [Mass ratio] 3.6 {ratio} Abnormal 0.0-3.2 [facility] Work Phone: Comment on above: LDL/HDL Ratio Men Wo men 1/2 Avg.Risk 1.0 1.5 Avg.Risk 3.6 3.2 2X Avg.Risk 6.2 5.0 3X Avg.Risk 8.0 6.1 PATIENT WAS FASTINGP ERFORMED BY: CODY [facility] Ojxche[address]77 [address] DNAtriXFormerly [facility]in [place] [id number] Cholesterol in VLDL [Mass/Vol] 39 mg/dL Normal 5-40 [facility] Work Phone: Comment on above: PATIENT WAS FASTINGP ERFORMED BY: CODY LabCoEastern New Mexico Medical CenterDxwxeh1999 [address] [facility] [id number] Triglyceride [Mass/Vol] 197 mg/dL Abnormal 0-149 [facility] Work Phone: Comment on above: PATIENT WAS FASTINGP ERFORMED BY: CODY [facility] Icitmx4404 [address] [facility] [id number] METABOLIC PANEL, COMPREHENSI VE ([id number])Ordered By: Hollow Handle Knife Assembler on 01-22-2019 Albumin [Mass/Vol] 4.0 g/dL Normal 3.6-4.8 [facility] Internal Medicine Work Phone: Comment on above: PATIENT WAS FASTINGP ERFORMED BY: [facility] Aiijzi9993 [facility] [place] [id number] Albumin/Globulin [Mass ratio] 1.4 {ratio} Normal 1.2-2.2 [facility] Work Phone: Comment on above: PATIENT WAS FASTINGP ERFORMED BY: [facility] Ervuww[address] [facility] [place] [id number] ALP [Catalytic activity/Vol] 103 [iU]/L Normal 39-117 [facility] Work Phone: Comment on above: PATIENT WAS FASTINGP ERFORMED BY: [facility] Lbrzfn[address]77 [address] [facility]bl[facility] [place] [id number] ALP [Catalytic activity/Vol] 103 U/L Normal 39-117 [facility]; [facility] Work Phone: Comment on above: PATIENT WAS FASTINGP ERFORMED BY: [facility] Umvcbq5818 [address] RoadDublin [place] [id number] ALT [Catalytic activity/Vol] 14 [iU]/L Normal 0-32 [facility] Work Phone: Comment on above: PATIENT WAS FASTINGP ERFORMED BY: [facility] Fdtnoq4306 [address] RoadDublin [place] [id number] ALT [Catalytic activity/Vol] 14 U/L Normal 0-32 [facility]; [facility] Work Phone: Comment on above: PATIENT WAS FASTINGP ERFORMED BY: [facility] Vuazfy0587 [address] RoadDublin [place] [id number] AST [Catalytic activity/Vol] 15 [iU]/L Normal 0-40 [facility] Work Phone: Comment on above: PATIENT WAS FASTINGP ERFORMED BY: [facility] Ndwhtn6627 [address] RoadDublin [place] [id number] AST [Catalytic activity/Vol] 15 U/L Normal 0-40 [facility]; [facility] Internal Medicine Work Phone: Comment on above: PATIENT WAS FASTINGP ERFORMED BY: [facility] Hragdm9348 [address] RoadDublin [place] [id number] Bilirubin [Mass/Vol] 0.3 mg/dL Normal 0.0-1.2 [facility] Work Phone: Comment on above: PATIENT WAS FASTINGP ERFORMED BY: [facility] Njksrb7133 [address] RoadDublin [place] [id number] Calcium [Mass/Vol] 8.8 mg/dL Normal 8.7-10.3 [facility] Internal Medicine Work Phone: Comment on above: PATIENT WAS FASTINGP ERFORMED BY: [facility] Zudiqj2915 [address] RoadDublin [place] [id number] Chloride [Moles/Vol] 104 mmol/L Normal 96-106 [facility] Work Phone: Comment on above: PATIENT WAS FASTINGP ERFORMED BY: CB [facility] Qgxiij3371 [address] RoadDublin [place] [id number] CO2 [Moles/Vol] 26 mmol/L Normal 20-29 [facility] Internal Medicine Work Phone: Comment on above: PATIENT WAS FASTINGP ERFORMED BY: CB [facility] Krapxi9465 [address] RoadDublin [place] [id number] Creatinine [Mass/Vol] 0.55 mg/dL Abnormal 0.57-1.00 [facility] Internal Medicine Work Phone: Comment on above: PATIENT WAS FASTINGP ERFORMED BY: CB [facility] Weohmn9692 [address] RoadDublin [place] [id number] GFR/1.73 sq M predicted among blacks CKD-EPI (S/P/Bld) [Vol rate/Area] 115 mL/min/1.73 Normal [facility] Work Phone: Comment on above: PATIENT WAS FASTINGP ERFORMED BY: CB [facility] Wykfyb3014 [address] RoadDublin [place] [id number] GFR/1.73 sq M predicted among non-blacks CKD-EPI (S/P/Bld) [Vol rate/Area] 100 mL/min/1.73 Normal [facility] Work Phone: Comment on above: PATIENT WAS FASTINGP ERFORMED BY: CB [facility] Lrecvm3293 [address] RoadDublin [place] [id number] Globulin (S) [Mass/Vol] 2.9 g/dL Normal 1.5-4.5 [facility] Internal Medicine Work Phone: Comment on above: PATIENT WAS FASTINGP ERFORMED BY: CB [facility] Wwcorq8235 [address] RoadDublin [place] [id number] Glucose [Mass/Vol] 154 mg/dL Abnormal 65-99 [facility] Internal Medicine Work Phone: Comment on above: PATIENT WAS FASTINGP ERFORMED BY: CB [facility] Yhwsos0929 [address] RoadDublin [place] [id number] Potassium [Moles/Vol] 4.2 mmol/L Normal 3.5-5.2 [facility] Internal Medicine Work Phone: Comment on above: PATIENT WAS FASTINGP ERFORMED BY: [facility] Fxbtlg5857 [address] [facility] [id number] Protein [Mass/Vol] 6.9 g/dL Normal 6.0-8.5 [facility] Internal Medicine Work Phone: Comment on above: PATIENT WAS FASTINGP ERFORMED BY: CB [facility] Mlcrfn5985 [address] [facility] [id number] Sodium [Moles/Vol] 147 mmol/L Abnormal 134-144 [facility] Internal Medicine Work Phone: Comment on above: PATIENT WAS FASTINGP ERFORMED BY: [facility] Jtvrky3699 [facility] [id number] Urea nitrogen [Mass/Vol] 16 mg/dL Normal 8-27 [facility] Internal Medicine Work Phone: Comment on above: PATIENT WAS FASTINGP ERFORMED BY: [facility] Dskgiu3314 [facility] [id number] Urea nitrogen/Creatinine [Mass ratio] 29 mg/mg Abnormal 12- [facility] Internal Medicine Work Phone: Comment on above: PATIENT WAS FASTINGP ERFORMED BY: [facility] Uswrkt5770 [facility] [id number] TSH ([id number])Ordered By: Alec Gaviria on 01-22-2019 TSH Qn 2.820 {uIU/mL} Normal 0.450-4.500 [facility] Internal Medicine Work Phone: Comment on above: PATIENT WAS FASTINGP ERFORMED BY: [facility] Ixttly[address] [facility] [id number] [facility] ([phone] x 2)Ordered By: Bernarda Minaya on 08-20-2018 FLUAV Ag IA Ql (Throat) Negative Normal [facility] Work Phone: FLUAV Ag IA Ql (Throat) Negative Normal [facility]; [facility] Work Phone: Rapid Strep Test, Office ([phone])Ordered By: Bernarda Minaya on 08-20-2018 S. pyogenes Ag EIA Ql (Throat) Negative Normal [facility]; [facility] Work Phone: S. pyogenes Ag IA Ql (Unsp spec) Negative Normal [facility] Work Phone: Blood Glucose , Office ([phone] By: Kiki Cain on 07-02-2018 Glucose Glucometer molar conc (BldC) 164 1 Normal [facility] Work Phone: HgA1C , Office ([phone])Ordere d By: Kiki Cain on 07-02-2018 Hemoglobin A1c/Hemoglobin.total mass fraction (Bld) 7.8 % Abnormal 4.6 - 7.1 [facility] Work Phone: HgA1C , Office ([phone])Ordere d By: Kiki Cain on 03-05-2018 Hemoglobin A1c/Hemoglobin.total mass fraction (Bld) 7.5 % Abnormal 4.6 - 7.1 [facility] Work Phone: CALCIFEDIOL ([phone])Ordered B y: Hollow Handle Knife Assembler on 02-21-2018 25-Hydroxyvitamin D2+25-Hydroxyvitamin D3 mass conc 26.6 ng/mL Abnormal 30.0-100.0 [facility] Work Phone: Comment on above: Vitamin D deficiency has been defined by the [place] of[place]icine and an Endocrine Society practice guideline as alevel of serum 25-OH vitamin D less than 20 ng/mL (1,2).The Endocrine Society went on to further define vitamin Dinsufficiency as a level between 21 and 29 ng/mL (2).1. IOM ([place] of Medicine). 2010. Dietary reference intakes for calcium and D. [place]: The National Academies Press.2. Jenna MF, Melissa NC, Faraz DOWD, et al. Evaluation, treatment, and prevention of vitamin D deficiency: an Endocrine Society clinical practice guideline. JCEM. 2010; 96(7):1911-30. PATIENT WAS FASTINGP ERFORMED BY: [facility] Urpfzk0749 [facility] [id number] CBC W/AUTO DIFF WBC (49614)O rdered By: Hollow Handle Knife Assembler on 02-21-2018 Basophils (Bld) [#/Vol] 0.0 {x10E3/uL} Normal 0.0-0.2 [facility] Work Phone: Comment on above: PATIENT WAS FASTINGP ERFORMED BY: [place] [id number] [facility] [id number] Basophils (Bld) [#/Vol] 0.0 10*3/uL Normal 0.0-0.2 [facility]; [facility] Work Phone: Comment on above: PATIENT WAS FASTINGP ERFORMED BY: [address] [id number] Basophils Auto #/vol (Bld) 0.0 {x10E3/uL} Normal 0.0-0.2 [facility] Work Phone: Basophils/100 WBC (Bld) 0 % Normal [facility] Work Phone: Comment on above: PATIENT WAS FASTINGP ERFORMED BY: [address] [id number] Basophils/100 WBC Auto (Bld) 0 % Normal [facility] Work Phone: Eosinophils (Bld) [#/Vol] 0.2 {x10E3/uL} Normal 0.0-0.4 [facility] Work Phone: Comment on above: PATIENT WAS FASTINGP ERFORMED BY: [place] [id number] [facility] [id number] Eosinophils (Bld) [#/Vol] 0.2 10*3/uL Normal 0.0-0.4 [facility]; [facility] Work Phone: Comment on above: PATIENT WAS FASTINGP ERFORMED BY: [place] [id number] [facility] [id number] Eosinophils Auto #/vol (Bld) 0.2 {x10E3/uL} Normal 0.0-0.4 [facility] Work Phone: Eosinophils/100 WBC (Bld) 3 % Normal [facility] Work Phone: Comment on above: PATIENT WAS FASTINGP ERFORMED BY: CODY Markie Oeerby0143 [facility] [id number] Eosinophils/100 WBC Auto (Bld) 3 % Normal [facility] Work Phone: Erythrocyte distribution width (RBC) [Ratio] 13.6 % Normal 12.3-15.4 [facility] Work Phone: Comment on above: PATIENT WAS FASTINGP ERFORMED BY: CODY LizAdelita YeungArtaey5253 [facility] [id number] Erythrocyte distribution width Auto Ratio (RBC) 13.6 % Normal 12.3-15.4 [facility] Work Phone: Hematocrit (Bld) [Volume fraction] 43.0 % Normal 34.0-46.6 [facility] Work Phone: Comment on above: PATIENT WAS FASTINGP ERFORMED BY: CODY Yeunglin6370 [facility] [id number] Hematocrit Auto Volume Fraction (Bld) 43.0 % Normal 34.0-46.6 [facility] Work Phone: Hemoglobin mass conc (Bld) 14.4 g/dL Normal 11.1-15.9 [facility] Work Phone: Comment on above: PATIENT WAS FASTINGP ERFORMED BY: CODY Aden Uuimeu6916 [facility] [id number] Immature granulocytes #/vol (Bld) 0.0 {x10E3/uL} Normal 0.0-0.1 [facility] Work Phone: Comment on above: PATIENT WAS FASTINGP ERFORMED BY: CODY AxxanaLisa [place] [id number] [facility] [id number] Immature granulocytes (Bld) [#/Vol] 0.0 10*3/uL Normal 0.0-0.1 [facility]; [facility] Work Phone: Comment on above: PATIENT WAS FASTINGP ERFORMED BY: [facility]6370 [facility] [id number] Immature granulocytes/100 WBC (Bld) 0 % Normal [facility] Work Phone: Comment on above: PATIENT WAS FASTINGP ERFORMED BY: [place] [id number] [facility] [id number] Lymphocytes (Bld) [#/Vol] 2.1 {x10E3/uL} Normal 0.7-3.1 [facility] Work Phone: Comment on above: PATIENT WAS FASTINGP ERFORMED BY: [address] [id number] Lymphocytes (Bld) [#/Vol] 2.1 10*3/uL Normal 0.7-3.1 [facility]; [facility] Work Phone: Comment on above: PATIENT WAS FASTINGP ERFORMED BY: [place] [id number] [facility] [id number] Lymphocytes Auto #/vol (Bld) 2.1 {x10E3/uL} Normal 0.7-3.1 [facility] Work Phone: Lymphocytes/100 WBC (Bld) 28 % Normal [facility] Work Phone: Comment on above: PATIENT WAS FASTINGP ERFORMED BY: [facility]6370 [facility] [id number] Lymphocytes/100 WBC Auto (Bld) 28 % Normal [facility] Work Phone: MCH (RBC) [Entitic mass] 30.2 pg Normal 26.6-33.0 [facility] Work Phone: Comment on above: PATIENT WAS FASTINGP ERFORMED BY: [place] [id number] [facility] [id number] MCH Auto Entitic mass (RBC) 30.2 pg Normal 26.6-33.0 [facility] Work Phone: MCHC (RBC) [Mass/Vol] 33.5 g/dL Normal 31.5-35.7 [facility] prehensive Internal Medicine Work Phone: Comment on above: PATIENT WAS FASTINGP ERFORMED BY: [facility]6370 [facility] [id number] MCHC Auto mass conc (RBC) 33.5 g/dL Normal 31.5-35.7 [facility] Work Phone: MCV (RBC) [Entitic vol] 90 fL Normal 79-97 [facility] Work Phone: Comment on above: PATIENT WAS FASTINGP ERFORMED BY: [facility]6370 [facility] [id number] MCV Auto Entitic volume (RBC) 90 fL Normal 79-97 [facility] Work Phone: Monocytes (Bld) [#/Vol] 0.4 {x10E3/uL} Normal 0.1-0.9 [facility] Work Phone: Comment on above: PATIENT WAS FASTINGP ERFORMED BY: [facility]6370 [facility] [id number] Monocytes (Bld) [#/Vol] 0.4 10*3/uL Normal 0.1-0.9 [facility]; [facility] Work Phone: Comment on above: PATIENT WAS FASTINGP ERFORMED BY: [facility]6370 [facility] [id number] Monocytes Auto #/vol (Bld) 0.4 {x10E3/uL} Normal 0.1-0.9 [facility] Work Phone: Monocytes/100 WBC (Bld) 6 % Normal [facility] Work Phone: Comment on above: PATIENT WAS FASTINGP ERFORMED BY: [facility]6370 [facility] [id number] Monocytes/100 WBC Auto (Bld) 6 % Normal [facility] Work Phone: Neutrophils (Bld) [#/Vol] 5.0 {x10E3/uL} Normal 1.4-7.0 [facility] Work Phone: Comment on above: PATIENT WAS FASTINGP ERFORMED BY: CODY [facility] Pgjxfl1760 [address] RoadDublin [place] [id number] Neutrophils (Bld) [#/Vol] 5.0 10*3/uL Normal 1.4-7.0 [facility]; [facility] Work Phone: Comment on above: PATIENT WAS FASTINGP ERFORMED BY: CODY [facility] Hnirat0701 [address] RoadDublin [place] [id number] Neutrophils Auto #/vol (Bld) 5.0 {x10E3/uL} Normal 1.4-7.0 [facility] Work Phone: Neutrophils/100 WBC (Bld) 63 % Normal [facility] Work Phone: Comment on above: PATIENT WAS FASTINGP ERFORMED BY: CODY LabCosandy YeungOmlscn8090 [address] RoadDublin [place] [id number] Neutrophils/100 WBC Auto (Bld) 63 % Normal [facility] Work Phone: Platelets (Bld) [#/Vol] 262 {x10E3/uL} Normal 150-379 [facility] Work Phone: Comment on above: PATIENT WAS FASTINGP ERFORMED BY: CODY [facility] Xqecil1596 [address] RoadDublin [place] [id number] Platelets (Bld) [#/Vol] 262 10*3/uL Normal 150-379 [facility]; [facility] Work Phone: Comment on above: PATIENT WAS FASTINGP ERFORMED BY: CB [facility] Oaasbd4403 [address] RoadDublin [place] [id number] Platelets Auto #/vol (Bld) 262 {x10E3/uL} Normal 150-379 [facility] Work Phone: RBC (Bld) [#/Vol] 4.77 {x10E6/uL} Normal 3.77-5.28 [facility] Work Phone: Comment on above: PATIENT WAS FASTINGP ERFORMED BY: CODY [facility] Wykhqy9619 [address] RoadDublin [place] [id number] RBC (Bld) [#/Vol] 4.77 10*6/uL Normal 3.77-5.28 [facility]; [facility] Work Phone: Comment on above: PATIENT WAS FASTINGP ERFORMED BY: CODY [facility] Vrknpn2978 [facility] [id number] RBC Auto #/vol (Bld) 4.77 {x10E6/uL} Normal 3.77-5.28 [facility] Work Phone: WBC (Bld) [#/Vol] 7.7 {x10E3/uL} Normal 3.4-10.8 [facility] Work Phone: Comment on above: PATIENT WAS FASTINGP ERFORMED BY: CODY [facility]6370 [facility] [id number] WBC (Bld) [#/Vol] 7.7 10*3/uL Normal 3.4-10.8 [facility]; [facility] Work Phone: Comment on above: PATIENT WAS FASTINGP ERFORMED BY: CODY [facility]6370 [facility] [id number] WBC Auto #/vol (Bld) 7.7 {x10E3/uL} Normal 3.4-10.8 [facility] Work Phone: LIPID PANEL ([phone])Ordered B y: Hollow Handle Knife Assembler on 02-21-2018 Cholesterol in HDL mass conc 35 mg/dL Abnormal [facility] Work Phone: Comment on above: PATIENT WAS FASTINGP ERFORMED BY: [facility] Pciimg1990 [facility] [id number] Cholesterol in LDL mass conc 147 mg/dL Abnormal 0-99 [facility] Work Phone: Comment on above: PATIENT WAS FASTINGP ERFORMED BY: [facility] Teczyt7276 [facility] [id number] Cholesterol in LDL/Cholesterol in HDL mass ratio 4.2 {ratio} Abnormal 0.0-3.2 [facility] Work Phone: Comment on above: LDL/HDL Ratio Men Wo men 1/2 Avg.Risk 1.0 1.5 Avg.Risk 3.6 3.2 2X Avg.Risk 6.2 5.0 3X Avg.Risk 8.0 6.1 PATIENT WAS FASTINGP ERFORMED BY: CODY [facility] Qlcvfs3908 [address] RoadDublin [place] [id number] Cholesterol in VLDL mass conc 45 mg/dL Abnormal 5-40 [facility] Work Phone: Comment on above: PATIENT WAS FASTINGP ERFORMED BY: CODY [facility] Fnmotm9504 [address] Roadblin [place] [id number] Cholesterol mass conc 227 mg/dL Abnormal 100-199 Com prehensive Internal Medicine Work Phone: Comment on above: PATIENT WAS FASTINGP ERFORMED BY: CODY [facility] Hvhpsp0990 [address] RoadFormerly [facility]in [place] [id number] Triglyceride mass conc 227 mg/dL Abnormal 0-149 [facility]ehens[facility] Work Phone: Comment on above: PATIENT WAS FASTINGP ERFORMED BY: CODY [facility] Oqycmq23[address] [facility]in [place] [id number] METABOLIC PANEL, COMPREHENSI VE ([id number])Ordered By: Hollow Handle Knife Assembler on 02-21-2018 Albumin mass conc 4.2 g/dL Normal 3.6-4.8 Compreh ensive Internal Medicine Work Phone: Comment on above: PATIENT WAS FASTINGP ERFORMED BY: CODY [facility] Xcpsez[address] [facility]bl[facility] [place] [id number] Albumin/Globulin mass ratio 1.5 {ratio} Normal 1.2-2.2 [facility] Work Phone: Comment on above: PATIENT WAS FASTINGP ERFORMED BY: CODY [facility] Sullot[address] [facility] HospitalDublin [place] [id number] ALP [Catalytic activity/Vol] 102 U/L Normal 39-117 [facility]; [facility] Work Phone: Comment on above: PATIENT WAS FASTINGP ERFORMED BY: CODY [facility] Hfvgxr8672 [address] RoadDublin [place] [id number] ALP enzyme act/vol 102 [iU]/L Normal 39-117 [facility] Work Phone: Comment on above: PATIENT WAS FASTINGP ERFORMED BY: CODY [facility] Azsmhl6414 [address] RoadDublin [place] [id number] ALT [Catalytic activity/Vol] 9 U/L Normal 0-32 [facility]; [facility] Internal [facility] Work Phone: Comment on above: PATIENT WAS FASTINGP ERFORMED BY: CB [facility] Spfhwx5254 [address] RoadDublin [place] [id number] ALT enzyme act/vol 9 [iU]/L Normal 0-32 [facility] Work Phone: Comment on above: PATIENT WAS FASTINGP ERFORMED BY: CODY [facility] Qveuap0160 [address] RoadDublin [place] [id number] AST [Catalytic activity/Vol] 11 U/L Normal 0-40 [facility] Internal [facility]; [facility] Work Phone: Comment on above: PATIENT WAS FASTINGP ERFORMED BY: [facility] Czlhrt8823 [address] RoadDublin [place] [id number] AST enzyme act/vol 11 [iU]/L Normal 0-40 [facility] Work Phone: Comment on above: PATIENT WAS FASTINGP ERFORMED BY: [facility] Rqklcu2641 [address] RoadDublin [place] [id number] Bilirubin mass conc 0.5 mg/dL Normal 0.0-1.2 [facility] Internal Medicine Work Phone: Comment on above: PATIENT WAS FASTINGP ERFORMED BY: [facility] Wjrjvy0741 [address] RoadDublin [place] [id number] Calcium mass conc 9.2 mg/dL Normal 8.7-10.3 [facility] Internal Medicine Work Phone: Comment on above: PATIENT WAS FASTINGP ERFORMED BY: [facility] Nfzmae2340 [address] RoadDublin [place] [id number] Chloride molar conc 101 mmol/L Normal 96-106 [facility] Work Phone: Comment on above: PATIENT WAS FASTINGP ERFORMED BY: [facility] Acprxg9858 [address] Roadblin [place] [id number] CO2 molar conc 26 mmol/L Normal 18-29 [...] - PATIENT WAS FASTINGP ERFORMED BY: [facility] Rrsyfp4315 [address] RoadFormerly [facility]in [place] [id number] Creatinine mass conc 0.62 mg/dL Normal 0.57-1.00 Comp rehensive Internal Medicine Work Phone: Comment on above: PATIENT WAS FASTINGP ERFORMED BY: [facility] Tkhroy7409 [address]Formerly [facility]in [place] [id number] GFR/1.73 sq M predicted among blacks CKD-EPI vol rate/area (S/P/Bld) 112 mL/min/1.73 Normal [facility] Work Phone: Comment on above: PATIENT WAS FASTINGP ERFORMED BY: [facility] Vsksvx[address] [facility]bl[facility] [place] [id number] GFR/1.73 sq M predicted among non-blacks CKD-EPI vol rate/area (S/P/Bld) 97 mL/min/1.73 Normal Comprehensiv e Internal Medicine Work Phone: Comment on above: PATIENT WAS FASTINGP ERFORMED BY: [facility] Myrjco5637 [address] [facility]in [place] [id number] Globulin (S) [Mass/Vol] 2.8 g/dL Normal 1.5-4.5 [facility] Work Phone: Comment on above: PATIENT WAS FASTINGP ERFORMED BY: [facility] Gbroeb[address] [facility]in [place] [id number] Globulin Calculated mass conc (S) 2.8 g/dL Normal 1.5-4.5 [facility] Work Phone: Glucose mass conc 136 mg/dL Abnormal 65-99 Compreh ensive Internal Medicine Work Phone: Comment on above: PATIENT WAS FASTINGP ERFORMED BY: CODY [facility] Bjsoob4569 [address] RoadDublin [place] [id number] Potassium molar conc 4.3 mmol/L Normal 3.5-5.2 Comp rehensive Internal Medicine Work Phone: Comment on above: PATIENT WAS FASTINGP ERFORMED BY: CODY [facility] Fsspih8335 [address] RoadDublin [place] [id number] Protein mass conc 7.0 g/dL Normal 6.0-8.5 Compreh ensive Internal Medicine Work Phone: Comment on above: PATIENT WAS FASTINGP ERFORMED BY: CODY [facility] Asczvd8191 [address] RoadDublin [place] [id number] Sodium molar conc 144 mmol/L Normal 134-144 Compreh ensive Internal Medicine Work Phone: Comment on above: PATIENT WAS FASTINGP ERFORMED BY: CODY [facility] Eodqcx6733 [address] RoadDublin [place] [id number] Urea nitrogen mass conc 14 mg/dL Normal 8-27 [facility] Work Phone: Comment on above: PATIENT WAS FASTINGP ERFORMED BY: CODY [facility] Ecbuzm0775 [address] RoadDublin [place] [id number] Urea nitrogen/Creatinine mass ratio 23 mg/mg Normal 12-28 [facility] Work Phone: Comment on above: PATIENT WAS FASTINGP ERFORMED BY: CODY [facility] Cltkud4651 [address] RoadDublin [place] [id number] MICROALBUMINOrdered By: Syst em Buggy Loader on 02-21-2018 Albumin DL <= 20 mg/L mass conc (U) 134.3 ug/mL Normal [facility] Work Phone: Comment on above: PATIENT NOT FASTINGP ERFORMED BY: CODY [facility] Khsrpm8194 [address] RoadDublin [place] [id number] Albumin/Creatinine mass ratio (U) 138.7 {mg/g_creat} Abnormal 0.0-30.0 [facility] Work Phone: Comment on above: PATIENT NOT FASTINGP ERFORMED BY: CODY [facility] Sfjezi2702 [facility] [id number] Creatinine mass conc (U) 96.8 mg/dL Normal [facility] Work Phone: Comment on above: PATIENT NOT FASTINGP ERFORMED BY: [facility] Rawkwq5612 [facility] [id number] Microscopic ExaminationOrder ed By: Hollow Handle Knife Assembler on 02-21-2018 Bacteria LM.HPF #/area (Urine sed) Few Normal [facility] Work Phone: Comment on above: PATIENT NOT FASTINGP ERFORMED BY: [facility] Dsdlvs9618 [facility] [id number] Crystals LM Nom (Urine sed) Amorphous Sediment Normal [facility] Work Phone: Comment on above: PATIENT NOT FASTINGP ERFORMED BY: [facility] Ebugnf6141 [facility] [id number] Epithelial cells LM.HPF #/area (Urine sed) 0-10 Normal 0 - 10 [facility] Work Phone: Comment on above: PATIENT NOT FASTINGP ERFORMED BY: [facility] Vmytge5277 [facility] [id number] Mucus LM Ql (Urine sed) Present Normal [facility] Work Phone: Mucus Ql (Urine sed) Present Normal Comp rehensive Internal Medicine Work Phone: Comment on above: PATIENT NOT FASTINGP ERFORMED BY: [facility] Xczwpa7[address] [facility]in [place] [id number] RBC LM.HPF #/area (Urine sed) 0-2 Normal 0 - 2 [facility] Work Phone: Comment on above: PATIENT NOT FASTINGP ERFORMED BY: [facility] Mksbvw[address] [facility] [id number] Unidentified crystals LM Ql (Urine sed) Present Abnormal [facility] Work Phone: Comment on above: PATIENT NOT FASTINGP ERFORMED BY: CODY [facility] Tbeaji9694 [address] RoadDublin [place] [id number] WBC LM.HPF #/area (Urine sed) 6-10 Abnormal 0 - 5 [facility] Work Phone: Comment on above: PATIENT NOT FASTINGP ERFORMED BY: CODY [facility] Jdazbk3370 [address] RoadDublin [place] [id number] TSH ([id number])Ordered By: Syste m Buggy Loader on 02-21-2018 Thyrotropin Qn 4.900 {uIU/mL} Abnormal 0.450-4.500 Compr ehensive Internal Medicine Work Phone: Comment on above: PATIENT WAS FASTINGP ERFORMED BY: CODY [facility] Fskzpm9931 [address] RoadDublin [place] [id number] URINALYSIS, W/ MICRO ([id number]) Ordered By: Hollow Handle Knife Assembler on 02-21-2018 Appearance Nom (U) Clear Normal Compre hensive Internal Medicine Work Phone: Comment on above: PATIENT NOT FASTINGP ERFORMED BY: CODY [facility] Kaftws1451 [address] RoadDublin [place] [id number] Bilirubin Ql (U) Negative Normal Comprehe nsive Internal Medicine Work Phone: Comment on above: PATIENT NOT FASTINGP ERFORMED BY: CODY [facility] Nxzalu7572 [address] RoadDublin [place] [id number] Bilirubin Ql (U) Negative Normal Comprehe nsive Internal Medicine; [facility] Work Phone: Comment on above: PATIENT NOT FASTINGP ERFORMED BY: CODY [facility] Vyqwqh5261 [address] RoadDublin [place] [id number] Color Nom (U) Yellow Normal Comprehensi ve Internal Medicine Work Phone: Comment on above: PATIENT NOT FASTINGP ERFORMED BY: CB [facility] Nrqico5804 [address]Dublin [place] [id number] Glucose Ql (U) Negative Normal Comprehens nadya Internal Medicine Work Phone: Comment on above: PATIENT NOT FASTINGP ERFORMED BY: CB [facility] Bubcku4622 [address] RoadDublin [place] [id number] Glucose Ql (U) Negative Normal Comprehens nadya [facility]; [facility] Work Phone: Comment on above: PATIENT NOT FASTINGP ERFORMED BY: CODY LabKeaganrp Tbcbyu5062 [address] RoadDublin [place] [id number] Hemoglobin Ql (U) Negative Normal Compreh ensive Internal Medicine Work Phone: Comment on above: PATIENT NOT FASTINGP ERFORMED BY: CODY [facility] Kzqleu1339 [address] RoadDublin [place] [id number] Hemoglobin Ql (U) Negative Normal Compreh ensive Internal Medicine; [facility] Work Phone: Comment on above: PATIENT NOT FASTINGP ERFORMED BY: CODY [facility] Pkkwac7848 [address] RoadDublin [place] [id number] Hemoglobin Test strip Ql (U) Negative Normal [facility] Work Phone: Ketones Ql (U) Negative Normal Comprehens nadya Internal Medicine Work Phone: Comment on above: PATIENT NOT FASTINGP ERFORMED BY: CODY [facility] Zmrqko4199 [address] RoadDublin [place] [id number] Ketones Ql (U) Negative Normal Comprehens nadya [facility]; [facility] Work Phone: Comment on above: PATIENT NOT FASTINGP ERFORMED BY: CODY [facility] Ymwtuq8647 [address] RoadDuin [place] [id number] Leukocyte esterase Test strip Ql (U) Trace Abnormal [facility] Work Phone: Comment on above: PATIENT NOT FASTINGP ERFORMED BY: CODY [facility] Gvurjx8263 [address] RoadDublin [place] [id number] Microscopic observation LM Nom (Urine sed) See below: Normal [facility] Work Phone: Comment on above: Microscopic was neelam cated and was performed. PATIENT NOT FASTINGP ERFORMED BY: CODY [facility] Oqggtr3977 [address] RoadDublin [place] [id number] Nitrite Ql (U) Negative Normal Comprehens nadya Internal Medicine Work Phone: Comment on above: PATIENT NOT FASTINGP ERFORMED BY: CODY [facility] Wrciim4727 [address] RoadDublin [place] [id number] Nitrite Ql (U) Negative Normal Comprehens nadya [facility]; [facility] Work Phone: Comment on above: PATIENT NOT FASTINGP ERFORMED BY: CODY [facility] Flchjl6000 [address] RoadDublin [place] [id number] Nitrite Test strip Ql (U) Negative Normal [facility] Work Phone: pH (U) 7.0 [pH] Normal 5.0-7.5 [facility] Work Phone: Comment on above: PATIENT NOT FASTINGP ERFORMED BY: CODY LabCosandy YeungNoblmj3702 [address] RoadDublin [place] [id number] pH Test strip (U) 7.0 [pH] Normal 5.0-7.5 Compreh ensive Internal Medicine Work Phone: Protein Ql (U) 1+ Abnormal Comprehens nadya Internal Medicine Work Phone: Comment on above: PATIENT NOT FASTINGP ERFORMED BY: CODY LabCosandy YeungPxggkn3865 [address] RoadDublin [place] [id number] Protein Test strip Ql (U) 1+ Abnormal [facility] Work Phone: Specific gravity Relative Density (U) 1.016 1 Normal 1.005-1.030 Comprehensi ve Internal Medicine Work Phone: Comment on above: PATIENT NOT FASTINGP ERFORMED BY: CODY [facility] Brtaie9[address] RoadDublin [place] [id number] Urobilinogen (U) [Mass/Vol] 1.0 mg/dL Normal 0.2-1.0 [facility]; [facility] Work Phone: Comment on above: PATIENT NOT FASTINGP ERFORMED BY: CODY [facility] Wnzvos8165 [address] RoadDublin [place] [id number] Urobilinogen Test strip mass conc (U) 1.0 mg/dL Normal 0.2-1.0 Comprehensiv e Internal Medicine Work Phone: Comment on above: PATIENT NOT FASTINGP ERFORMED BY: CODY [facility] Pnfuxp9373 [facility] [id number] Blood Glucose , Office ([phone])Ordered By: Kiki Cain on 12-02-2017 Glucose Glucometer molar conc (BldC) 115 1 Normal [facility] Work Phone: HgA1C , Office ([phone])Ordere d By: Kiki Cain on 12-02-2017 Hemoglobin A1c/Hemoglobin.total mass fraction (Bld) 7.4 % Abnormal 4.6 - 7.1 Comprehensiv e Internal Medicine Work Phone: Blood Glucose , Office ([phone])Ordered By: Kiki Cain on 07-31-2017 Glucose Glucometer molar conc (BldC) 160 1 Normal [facility] Work Phone: CALCIFIDIOL ([id number]) VIT D 25 Ordered By: Hollow Handle Knife Assembler on 07-31-2017 25-Hydroxyvitamin D2+25-Hydroxyvitamin D3 mass conc 16.0 ng/mL Abnormal 30.0-100.0 [facility] Work Phone: Comment on above: Vitamin D deficiency has been defined by the [place] of[place]icine and an Endocrine Society practice guideline as alevel of serum 25-OH vitamin D less than 20 ng/mL (1,2).The Endocrine Society went on to further define vitamin Dinsufficiency as a level between 21 and 29 ng/mL (2).1. IOM ([place] of Medicine). 2010. Dietary reference intakes for calcium and D. [place]: The National Academies Press.2. Jenna MF, Melissa HANSEN, Faraz DOWD, et al. Evaluation, treatment, and prevention of vitamin D deficiency: an Endocrine Society clinical practice guideline. JCEM. 2010; 96(7):1911-30. PATIENT WAS FASTINGP ERFORMED BY: SHIFT [facility] Uyfisj8701 [facility] [id number] CBC W/AUTO DIFF WBC (35489)O rdered By: Hollow Handle Knife Assembler on 07-31-2017 Basophils (Bld) [#/Vol] 0.0 {x10E3/uL} Normal 0.0-0.2 [facility] Work Phone: Comment on above: PATIENT WAS FASTINGP ERFORMED BY: [facility] [facility] [place] [id number] Basophils (Bld) [#/Vol] 0.0 10*3/uL Normal 0.0-0.2 [facility]; [facility] Work Phone: Comment on above: PATIENT WAS FASTINGP ERFORMED BY: LabLisa [place] [id number] [facility]in [place] [id number] Basophils Auto #/vol (Bld) 0.0 {x10E3/uL} Normal 0.0-0.2 [facility] Work Phone: Basophils/100 WBC (Bld) 0 % Normal [facility] Work Phone: Comment on above: PATIENT WAS FASTINGP ERFORMED BY: [place] 6521770 [facility] [id number] Basophils/100 WBC Auto (Bld) 0 % Normal [facility] Work Phone: Eosinophils (Bld) [#/Vol] 0.2 {x10E3/uL} Normal 0.0-0.4 [facility] Work Phone: Comment on above: PATIENT WAS FASTINGP ERFORMED BY: [place] 6521770 [facility] [id number] Eosinophils (Bld) [#/Vol] 0.2 10*3/uL Normal 0.0-0.4 [facility]; [facility] Work Phone: Comment on above: PATIENT WAS FASTINGP ERFORMED BY: [facility] [facility] [place] [id number] Eosinophils Auto #/vol (Bld) 0.2 {x10E3/uL} Normal 0.0-0.4 [facility] Work Phone: Eosinophils/100 WBC (Bld) 2 % Normal [facility] Work Phone: Comment on above: PATIENT WAS FASTINGP ERFORMED BY: [facility] [facility] [place] [id number] Eosinophils/100 WBC Auto (Bld) 2 % Normal [facility] Work Phone: Erythrocyte distribution width (RBC) [Ratio] 13.4 % Normal 12.3-15.4 [facility] Work Phone: Comment on above: PATIENT WAS FASTINGP ERFORMED BY: CODY [facility] CenterAdelita YeungCtnbtp1704 [facility] [id number] Erythrocyte distribution width Auto Ratio (RBC) 13.4 % Normal 12.3-15.4 [facility] Work Phone: Hematocrit (Bld) [Volume fraction] 43.2 % Normal 34.0-46.6 [facility] Work Phone: Comment on above: PATIENT WAS FASTINGP ERFORMED BY: CODY Yeung[address] [id number] Hematocrit Auto Volume Fraction (Bld) 43.2 % Normal 34.0-46.6 [facility] Work Phone: Hemoglobin mass conc (Bld) 14.7 g/dL Normal 11.1-15.9 [facility] Work Phone: Comment on above: PATIENT WAS FASTINGP ERFORMED BY: CODY Yeung[address] [id number] Immature granulocytes #/vol (Bld) 0.0 {x10E3/uL} Normal 0.0-0.1 [facility] Work Phone: Comment on above: PATIENT WAS FASTINGP ERFORMED BY: CODY [facility] Mgafjx[address] [id number] Immature granulocytes (Bld) [#/Vol] 0.0 10*3/uL Normal 0.0-0.1 [facility]; [facility] Work Phone: Comment on above: PATIENT WAS FASTINGP ERFORMED BY: CODY [address] [id number] Immature granulocytes/100 WBC (Bld) 0 % Normal [facility] Work Phone: Comment on above: PATIENT WAS FASTINGP ERFORMED BY: [facility]6370 [facility] [id number] Lymphocytes (Bld) [#/Vol] 2.2 {x10E3/uL} Normal 0.7-3.1 [facility] Work Phone: Comment on above: PATIENT WAS FASTINGP ERFORMED BY: [facility]6370 [facility] [id number] Lymphocytes (Bld) [#/Vol] 2.2 10*3/uL Normal 0.7-3.1 [facility]; [facility] Work Phone: Comment on above: PATIENT WAS FASTINGP ERFORMED BY: [place] 6521770 [facility] [id number] Lymphocytes Auto #/vol (Bld) 2.2 {x10E3/uL} Normal 0.7-3.1 [facility] Work Phone: Lymphocytes/100 WBC (Bld) 32 % Normal [facility] Work Phone: Comment on above: PATIENT WAS FASTINGP ERFORMED BY: [place] 6521770 [facility] [id number] Lymphocytes/100 WBC Auto (Bld) 32 % Normal [facility] Work Phone: MCH (RBC) [Entitic mass] 31.3 pg Normal 26.6-33.0 [facility] Internal Medicine Work Phone: Comment on above: PATIENT WAS FASTINGP ERFORMED BY: [place] 6521770 [facility] [id number] MCH Auto Entitic mass (RBC) 31.3 pg Normal 26.6-33.0 [facility] Internal Medicine Work Phone: MCHC (RBC) [Mass/Vol] 34.0 g/dL Normal 31.5-35.7 [facility] Internal Medicine Work Phone: Comment on above: PATIENT WAS FASTINGP ERFORMED BY: [facility]6370 [facility] [id number] MCHC Auto mass conc (RBC) 34.0 g/dL Normal 31.5-35.7 [facility] Work Phone: MCV (RBC) [Entitic vol] 92 fL Normal 79-97 [facility] Work Phone: Comment on above: PATIENT WAS FASTINGP ERFORMED BY: [facility] Gdoeer5920 [facility] [id number] MCV Auto Entitic volume (RBC) 92 fL Normal 79-97 [facility] Work Phone: Monocytes (Bld) [#/Vol] 0.4 {x10E3/uL} Normal 0.1-0.9 [facility] Work Phone: Comment on above: PATIENT WAS FASTINGP ERFORMED BY: [address] [id number] Monocytes (Bld) [#/Vol] 0.4 10*3/uL Normal 0.1-0.9 [facility]; [facility] Work Phone: Comment on above: PATIENT WAS FASTINGP ERFORMED BY: [place] 6521770 [facility] [id number] Monocytes Auto #/vol (Bld) 0.4 {x10E3/uL} Normal 0.1-0.9 [facility] Work Phone: Monocytes/100 WBC (Bld) 7 % Normal [facility] Work Phone: Comment on above: PATIENT WAS FASTINGP ERFORMED BY: [place] 6521770 [facility] [id number] Monocytes/100 WBC Auto (Bld) 7 % Normal [facility] Work Phone: Neutrophils (Bld) [#/Vol] 4.0 {x10E3/uL} Normal 1.4-7.0 [facility] Work Phone: Comment on above: PATIENT WAS FASTINGP ERFORMED BY: [place] 6521770 [facility] [id number] Neutrophils (Bld) [#/Vol] 4.0 10*3/uL Normal 1.4-7.0 [facility]; [facility] Work Phone: Comment on above: PATIENT WAS FASTINGP ERFORMED BY: CODY Bridges[address]Dublin [place] [id number] Neutrophils Auto #/vol (Bld) 4.0 {x10E3/uL} Normal 1.4-7.0 [facility] Work Phone: Neutrophils/100 WBC (Bld) 59 % Normal [facility] Work Phone: Comment on above: PATIENT WAS FASTINGP ERFORMED BY: CODY LabAdelita Bridges[address]Dublin [place] [id number] Neutrophils/100 WBC Auto (Bld) 59 % Normal [facility] Work Phone: Platelets (Bld) [#/Vol] 217 {x10E3/uL} Normal 150-379 [facility] Work Phone: Comment on above: PATIENT WAS FASTINGP ERFORMED BY: CODY Bridges[address]Dublin [place] [id number] Platelets (Bld) [#/Vol] 217 10*3/uL Normal 150-379 [facility]; [facility] Work Phone: Comment on above: PATIENT WAS FASTINGP ERFORMED BY: CODY Yeunglin6370 [address] RoadDublin [place] [id number] Platelets Auto #/vol (Bld) 217 {x10E3/uL} Normal 150-379 [facility] Work Phone: RBC (Bld) [#/Vol] 4.70 {x10E6/uL} Normal 3.77-5.28 [facility] Internal Medicine Work Phone: Comment on above: PATIENT WAS FASTINGP ERFORMED BY: CODY LabCosandy YeungSopgrp8786 [address] RoadDublin [place] [id number] RBC (Bld) [#/Vol] 4.70 10*6/uL Normal 3.77-5.28 [facility] Internal Medicine; [facility] Work Phone: Comment on above: PATIENT WAS FASTINGP ERFORMED BY: CODY LabCosandy YeungZkfihl5087 [facility] [id number] RBC Auto #/vol (Bld) 4.70 {x10E6/uL} Normal 3.77-5.28 [facility] Work Phone: WBC (Bld) [#/Vol] 6.8 {x10E3/uL} Normal 3.4-10.8 [facility] prehensive Internal Medicine Work Phone: Comment on above: PATIENT WAS FASTINGP ERFORMED BY: CODY LabKeagan Mmczza7982 [facility] [id number] WBC (Bld) [#/Vol] 6.8 10*3/uL Normal 3.4-10.8 [facility] Internal Medicine; [facility] Work Phone: Comment on above: PATIENT WAS FASTINGP ERFORMED BY: CODY Markie Ayjjya1434 [facility] [id number] WBC Auto #/vol (Bld) 6.8 {x10E3/uL} Normal 3.4-10.8 [facility] Work Phone: HgA1C , Office ([id number])Ordere d By: Kiki Cain on 07-31-2017 Hemoglobin A1c/Hemoglobin.total mass fraction (Bld) 5.8 % Normal 4.6 - 7.1 Comprehensiv e Internal Medicine Work Phone: LIPID PANEL ([id number])Ordered B y: Hollow Handle Knife Assembler on 07-31-2017 Cholesterol in HDL mass conc 35 mg/dL Abnormal [facility] Work Phone: Comment on above: PATIENT WAS FASTINGP ERFORMED BY: CODY [facility] Lhzacn3177 [facility] [id number] Cholesterol in LDL mass conc 124 mg/dL Abnormal 0-99 [facility] Work Phone: Comment on above: PATIENT WAS FASTINGP ERFORMED BY: CODY [facility] Qduhmz0536 [facility] [id number] Cholesterol in LDL/Cholesterol in HDL mass ratio 3.5 {ratio_units} Abnormal 0.0-3.2 [facility] Work Phone: Comment on above: LDL/HDL Ratio Men Wo men 1/2 Avg.Risk 1.0 1.5 Avg.Risk 3.6 3.2 2X Avg.Risk 6.2 5.0 3X Avg.Risk 8.0 6.1 PATIENT WAS FASTINGP ERFORMED BY: CODY LabAdelita YeungCabfwe1281 [address] RoadDublin [place] [id number] Cholesterol in VLDL mass conc 54 mg/dL Abnormal 5-40 [facility] Work Phone: Comment on above: PATIENT WAS FASTINGP ERFORMED BY: CODY LabCosandy YeungJghhyk1330 [address] RoadDublin [place] [id number] Cholesterol mass conc 213 mg/dL Abnormal 100-199 Com prehensive Internal Medicine Work Phone: Comment on above: PATIENT WAS FASTINGP ERFORMED BY: CODY LabAdelita YeungNgfarw9778 [address] RoadDublin [place] [id number] Triglyceride mass conc 271 mg/dL Abnormal 0-149 [facility] instituteehensive [facility] Work Phone: Comment on above: PATIENT WAS FASTINGP ERFORMED BY: CODY Yeunglin6[address]Dublin [place] [id number] METABOLIC PANEL, COMPREHENSI VE ([id number])Ordered By: Hollow Handle Knife Assembler on 07-31-2017 Albumin mass conc 4.2 g/dL Normal 3.6-4.8 Compreh ensive Internal Medicine Work Phone: Comment on above: PATIENT WAS FASTINGP ERFORMED BY: CODY [facility] Youcsw3174 [address] RoadDublin [place] [id number] Albumin/Globulin mass ratio 1.4 {ratio} Normal 1.2-2.2 [facility] Work Phone: Comment on above: PATIENT WAS FASTINGP ERFORMED BY: CODY [facility] Ljuirv0086 [address] RoadDublin [place] [id number] ALP [Catalytic activity/Vol] 101 U/L Normal 39-117 [facility]; [facility] Work Phone: Comment on above: PATIENT WAS FASTINGP ERFORMED BY: CODY [facility] Bgehnl8628 [address] RoadDublin [place] [id number] ALP enzyme act/vol 101 [iU]/L Normal 39-117 [facility] Internal Medicine Work Phone: Comment on above: PATIENT WAS FASTINGP ERFORMED BY: CB [facility] Ibbmbn6158 [address] RoadDublin [place] [id number] ALT [Catalytic activity/Vol] 12 U/L Normal 0-32 [facility] Internal Medicine; [facility] Internal Medicine Work Phone: Comment on above: PATIENT WAS FASTINGP ERFORMED BY: CB [facility] Xwbftn2131 [address] RoadDublin [place] [id number] ALT enzyme act/vol 12 [iU]/L Normal 0-32 [facility] Internal Medicine Work Phone: Comment on above: PATIENT WAS FASTINGP ERFORMED BY: CB [facility] Wwibyf0873 [address] RoadDublin [place] [id number] AST [Catalytic activity/Vol] 14 U/L Normal 0-40 [facility] Internal Medicine; [facility] Internal Medicine Work Phone: Comment on above: PATIENT WAS FASTINGP ERFORMED BY: CB [facility] Ucpzmz3778 [address] RoadDublin [place] [id number] AST enzyme act/vol 14 [iU]/L Normal 0-40 [facility] Internal Medicine Work Phone: Comment on above: PATIENT WAS FASTINGP ERFORMED BY: CB [facility] Qvylis6051 [address] RoadDublin [place] [id number] Bilirubin mass conc 0.3 mg/dL Normal 0.0-1.2 [facility] Internal Medicine Work Phone: Comment on above: PATIENT WAS FASTINGP ERFORMED BY: CB [facility] Vrmhna1954 [address] RoadDublin [place] [id number] Calcium mass conc 9.2 mg/dL Normal 8.7-10.3 [facility] Internal Medicine Work Phone: Comment on above: PATIENT WAS FASTINGP ERFORMED BY: CB [facility] Yjnyhq7814 [address] RoadDublin [place] [id number] Chloride molar conc 101 mmol/L Normal 96-106 [facility] Internal Medicine Work Phone: Comment on above: PATIENT WAS FASTINGP ERFORMED BY: CB [facility] Uvaubm6154 [address] RoadDublin [place] [id number] CO2 molar conc 22 mmol/L Normal 18-29 Comprehens nadya Internal Medicine Work Phone: Comment on above: PATIENT WAS FASTINGP ERFORMED BY: CB [facility] Kygxqv0273 [address] RoadDublin [place] [id number] Creatinine mass conc 0.50 mg/dL Abnormal 0.57-1.00 Comp rehensive Internal Medicine Work Phone: Comment on above: PATIENT WAS FASTINGP ERFORMED BY: CB [facility] Wvqgaq3558 [address] RoadDublin [place] [id number] GFR/1.73 sq M predicted among blacks CKD-EPI vol rate/area (S/P/Bld) 121 mL/min/1.73 Normal [facility] Work Phone: Comment on above: PATIENT WAS FASTINGP ERFORMED BY: CB [facility] Osypjn5565 [address] RoadDublin [place] [id number] GFR/1.73 sq M predicted among non-blacks CKD-EPI vol rate/area (S/P/Bld) 105 mL/min/1.73 Normal Comprehensiv e Internal Medicine Work Phone: Comment on above: PATIENT WAS FASTINGP ERFORMED BY: CODY [facility] Aonfwi2095 [address] Roadblin [place] [id number] Globulin (S) [Mass/Vol] 2.9 g/dL Normal 1.5-4.5 [facility] Work Phone: Comment on above: PATIENT WAS FASTINGP ERFORMED BY: CB [facility] Oxhccr3127 [address] Roadblin [place] [id number] Globulin Calculated mass conc (S) 2.9 g/dL Normal 1.5-4.5 [facility] Work Phone: Glucose mass conc 128 mg/dL Abnormal 65-99 Compreh ensive Internal Medicine Work Phone: Comment on above: PATIENT WAS FASTINGP ERFORMED BY: CB [facility] Alltmd67[address] RoadFormerly [facility]in [place] [id number] Potassium molar conc 3.9 mmol/L Normal 3.5-5.2 Comp rehensive Internal Medicine Work Phone: Comment on above: PATIENT WAS FASTINGP ERFORMED BY: CODY Azael Bridges[address] [facility] [place] [id number] Protein mass conc 7.1 g/dL Normal 6.0-8.5 Compreh ensive Internal Medicine Work Phone: Comment on above: PATIENT WAS FASTINGP ERFORMED BY: CODY [facility] [facility] [id number] Sodium molar conc 142 mmol/L Normal 134-144 Compreh ensive Internal Medicine Work Phone: Comment on above: PATIENT WAS FASTINGP ERFORMED BY: CODY [facility] Yofddh1437 [facility] [id number] Urea nitrogen mass conc 26 mg/dL Normal 8-27 [facility] Work Phone: Comment on above: PATIENT WAS FASTINGP ERFORMED BY: CODY [facility] Pjznlu2777 [facility] [id number] Urea nitrogen/Creatinine mass ratio 52 mg/mg Abnormal 12- [facility] Work Phone: Comment on above: PATIENT WAS FASTINGP ERFORMED BY: CODY [facility] Mcllow1517 [facility] [id number] MICROALBUMINOrdered By: Syst em Buggy Loader on 07-31-2017 Albumin DL <= 20 mg/L mass conc (U) 142.4 ug/mL Normal [facility] Work Phone: Comment on above: PATIENT WAS FASTINGP ERFORMED BY: LabTr[facility] [facility] [place] [id number] Albumin/Creatinine mass ratio (U) 169.1 {mg/g_creat} Abnormal 0.0-30.0 [facility] Work Phone: Comment on above: PATIENT WAS FASTINGP ERFORMED BY: [facility] [facility] [place] [id number] Creatinine mass conc (U) 84.2 mg/dL Normal [facility] Work Phone: Comment on above: PATIENT WAS FASTINGP ERFORMED BY: CODY [facility] Pxanax[address] [facility] Centerblin [place] [id number] Microscopic ExaminationOrder ed By: Hollow Handle Knife Assembler on 07-31-2017 Bacteria LM.HPF #/area (Urine sed) Few Normal [facility] Work Phone: Comment on above: PATIENT WAS FASTINGP ERFORMED BY: [facility] Rkgqws9860 [address] RoadDublin [place] [id number] Crystals LM Nom (Urine sed) Calcium Oxalate Normal [facility] Work Phone: Comment on above: PATIENT WAS FASTINGP ERFORMED BY: [facility] Afyjwv[address] [facility]in [place] [id number] Epithelial cells LM.HPF #/area (Urine sed) 0-10 Normal 0 - 10 [facility] Work Phone: Comment on above: PATIENT WAS FASTINGP ERFORMED BY: [facility] Kkhtxi[address] [facility]in [place] [id number] Mucus LM Ql (Urine sed) Present Normal [facility] Work Phone: Mucus Ql (Urine sed) Present Normal Comp rehensive Internal Medicine Work Phone: Comment on above: PATIENT WAS FASTINGP ERFORMED BY: CODY [facility] Vrzybw9615 [address] RoadDublin [place] [id number] RBC LM.HPF #/area (Urine sed) 0-2 Normal 0 - 2 [facility] Work Phone: Comment on above: PATIENT WAS FASTINGP ERFORMED BY: [facility] Cmgial6834 [address] Roadblin [place] [id number] Unidentified crystals LM Ql (Urine sed) Present Abnormal [facility] Work Phone: Comment on above: PATIENT WAS FASTINGP ERFORMED BY: [facility] Huircc1271 [address] RoadDublin [place] [id number] WBC LM.HPF #/area (Urine sed) 0-5 Normal 0 - 5 [facility] Work Phone: Comment on above: PATIENT WAS FASTINGP ERFORMED BY: CODY [facility] Lidduj3348 [address] RoadDublin [place] [id number] TSH ([id number])Ordered By: Syste m Buggy Loader on 07-31-2017 Thyrotropin Qn 2.230 {uIU/mL} Normal 0.450-4.500 Compr ehensive Internal Medicine Work Phone: Comment on above: PATIENT WAS FASTINGP ERFORMED BY: CODY [facility] Fawtzu2[address]Dublin [place] [id number] URINALYSIS, W/ MICRO ([id number]) Ordered By: Hollow Handle Knife Assembler on 07-31-2017 Appearance Nom (U) Cloudy Abnormal Compre hensive Internal Medicine Work Phone: Comment on above: PATIENT WAS FASTINGP ERFORMED BY: CODY [facility] Qotujw7013 [address] RoadDublin [place] [id number] Bilirubin Ql (U) Negative Normal Comprehe nsive Internal Medicine Work Phone: Comment on above: PATIENT WAS FASTINGP ERFORMED BY: CODY [facility] Omehvv3144 [address] RoadDublin [place] [id number] Bilirubin Ql (U) Negative Normal Comprehe nsive Internal Medicine; [facility] Work Phone: Comment on above: PATIENT WAS FASTINGP ERFORMED BY: CODY LabCosandy Wohxev1926 [address] RoadDublin [place] [id number] Color Nom (U) Yellow Normal Comprehensi ve Internal Medicine Work Phone: Comment on above: PATIENT WAS FASTINGP ERFORMED BY: CODY [facility] Nehsav5234 [address] RoadDublin [place] [id number] Glucose Ql (U) Negative Normal Comprehens nadya Internal Medicine Work Phone: Comment on above: PATIENT WAS FASTINGP ERFORMED BY: CODY [facility] Ihoxbe7100 [address] RoadDublin [place] [id number] Glucose Ql (U) Negative Normal Comprehens nadya Internal Medicine; [facility] Work Phone: Comment on above: PATIENT WAS FASTINGP ERFORMED BY: CODY [facility] Tkfeyj9761 [address] RoadDublin [place] [id number] Hemoglobin Ql (U) Negative Normal Compreh ensive Internal Medicine Work Phone: Comment on above: PATIENT WAS FASTINGP ERFORMED BY: CODY [facility] Tpbtux3192 [address] RoadDublin [place] [id number] Hemoglobin Ql (U) Negative Normal Compreh ensive Internal Medicine; [facility] Work Phone: Comment on above: PATIENT WAS FASTINGP ERFORMED BY: CODY [facility] Sojgrz7369 [address] RoadDublin [place] [id number] Hemoglobin Test strip Ql (U) Negative Normal [facility] Work Phone: Ketones Ql (U) Negative Normal Comprehens nadya Internal Medicine Work Phone: Comment on above: PATIENT WAS FASTINGP ERFORMED BY: CODY [facility] Rhprvp1235 [address] RoadDublin [place] [id number] Ketones Ql (U) Negative Normal Comprehens nadya Internal Medicine; [facility] Work Phone: Comment on above: PATIENT WAS FASTINGP ERFORMED BY: CODY [facility] Lpjmtr9170 [address] RoadDublin [place] [id number] Leukocyte esterase Test strip Ql (U) Negative Normal [facility] Work Phone: Comment on above: PATIENT WAS FASTINGP ERFORMED BY: CODY [facility] Xulicm2171 [address] RoadDublin [place] [id number] Leukocyte esterase Test strip Ql (U) Negative Normal [facility]; [facility] Work Phone: Comment on above: PATIENT WAS FASTINGP ERFORMED BY: CB [facility] Xnjywn5264 [address] RoadDublin [place] [id number] Microscopic observation LM Nom (Urine sed) See below: Normal [facility] Work Phone: Comment on above: Microscopic was neelam cated and was performed. PATIENT WAS FASTINGP ERFORMED BY: CB [facility] Jumejv8529 [address] RoadDublin [place] [id number] Microscopic observation LM Nom (Urine sed) MICRON Normal [facility] Work Phone: Comment on above: Microscopic follows if indicated. PATIENT WAS FASTINGP ERFORMED BY: CODY LabCosandy YeungRcybcz1877 Eldridge RoadDublin [place] [id number] Nitrite Ql (U) Negative Normal Comprehens nadya Internal Medicine Work Phone: Comment on above: PATIENT WAS FASTINGP ERFORMED BY: CODY LabCosandy YeungRyrwnq1806 [address]ridge RoadDublin [place] [id number] Nitrite Ql (U) Negative Normal Comprehens nadya [facility]; [facility] Work Phone: Comment on above: PATIENT WAS FASTINGP ERFORMED BY: CODY LabCo Kqvxjb9236 [address]ridge RoadDublin [place] [id number] Nitrite Test strip Ql (U) Negative Normal [facility] Work Phone: pH (U) 5.0 [pH] Normal 5.0-7.5 [facility] Work Phone: Comment on above: PATIENT WAS FASTINGP ERFORMED BY: CODY Yeunglin6370 [address] RoadDublin [place] [id number] pH Test strip (U) 5.0 [pH] Normal 5.0-7.5 Compreh ensive Internal Medicine Work Phone: Protein Ql (U) Trace Normal Comprehens nadya Internal Medicine Work Phone: Comment on above: PATIENT WAS FASTINGP ERFORMED BY: CODY Yeunglin6370 [address] RoadDublin [place] [id number] Protein Test strip Ql (U) Trace Normal [facility] Work Phone: Specific gravity Relative Density (U) 1.026 1 Normal 1.005-1.030 Comprehensi ve Internal Medicine Work Phone: Comment on above: PATIENT WAS FASTINGP ERFORMED BY: CODY LabCo Opshkv0936 [address]ridge RoadDublin [place] [id number] Urobilinogen (U) [Mass/Vol] 1.0 mg/dL Normal 0.2-1.0 [facility]; [facility] Work Phone: Comment on above: PATIENT WAS FASTINGP ERFORMED BY: CODY LabCo Beajnm0760 [address] RoadDublin [place] [id number] Urobilinogen Test strip mass conc (U) 1.0 mg/dL Normal 0.2-1.0 Comprehensiv e Internal Medicine Work Phone: Comment on above: PATIENT WAS FASTINGP ERFORMED BY: CODY [employer] Ypgtzi2688 [facility] [id number] Blood Glucose , Office ([phone])Ordered By: Bernarda Minaya on 04-22-2017 Glucose Glucometer molar conc (BldC) 136 1 Normal [facility] Work Phone: HgA1C , Office ([phone])Ordere d By: Bernarda Minaya on 04-22-2017 Hemoglobin A1c/Hemoglobin.total mass fraction (Bld) 8.1 % Abnormal 4.6 - 7.1 Comprehensiv e Internal Medicine Work Phone: Rapid Flu ([phone] x 2)Ordered By: Bernarda Minaya on 08-17-2016 FLUAV Ag IA Ql (Throat) Negative Normal [facility] Work Phone: FLUAV Ag IA Ql (Throat) Negative Normal [facility]; [facility] Work Phone: CALCIFIDIOL ([phone]) VIT D 25 Ordered By: Hollow Handle Knife Assembler on 07-01-2015 25-Hydroxyvitamin D2+25-Hydroxyvitamin D3 mass conc 16.4 ng/mL Abnormal 30.0-100.0 [facility] Work Phone: Comment on above: Vitamin D deficiency has been defined by the [place] [facility] Cent[facility] and an Endocrine Society practice guideline as alevel of serum 25-OH vitamin D less than 20 ng/mL (1,2).The Endocrine Society went on to further define vitamin Dinsufficiency as a level between 21 and 29 ng/mL (2).1. IOM ([place] of Medicine). 2010. Dietary reference intakes for calcium and D. [place]: The National Academies Press.2. Jenna GONZALEZ, Melissa HANSEN, Faraz DOWD, et al. Evaluation, treatment, and prevention of vitamin D deficiency: an Endocrine Society clinical practice guideline. JCEM. 2010; 96(7):1911-30. PATIENT WAS FASTINGP ERFORMED BY: [place] 6521770 [facility] [id number] CBC W/AUTO DIFF WBC (15652)O rdered By: Hollow Handle Knife Assembler on 07-01-2015 Basophils (Bld) [#/Vol] 0.0 {x10E3/uL} Normal 0.0-0.2 [facility] Work Phone: Comment on above: PATIENT WAS FASTINGP ERFORMED BY: [address] [id number] Information: [id number] Basophils (Bld) [#/Vol] 0.0 10*3/uL Normal 0.0-0.2 [facility]; [facility] Work Phone: Comment on above: PATIENT WAS FASTINGP ERFORMED BY: [address] [id number] Information: [id number] Basophils Auto #/vol (Bld) 0.0 {x10E3/uL} Normal 0.0-0.2 [facility] Work Phone: Basophils/100 WBC (Bld) 0 % Normal [facility] Work Phone: Comment on above: PATIENT WAS FASTINGP ERFORMED BY: [place] 6521770 [facility] [id number] Information: [id number] Basophils/100 WBC Auto (Bld) 0 % Normal [facility] Work Phone: Eosinophils (Bld) [#/Vol] 0.2 {x10E3/uL} Normal 0.0-0.4 [facility] Work Phone: Comment on above: PATIENT WAS FASTINGP ERFORMED BY: [address] [id number] Information: [id number] Eosinophils (Bld) [#/Vol] 0.2 10*3/uL Normal 0.0-0.4 [facility]; [facility] Work Phone: Comment on above: PATIENT WAS FASTINGP ERFORMED BY: [facility]6370 [facility] [id number] Information: [id number] Eosinophils Auto #/vol (Bld) 0.2 {x10E3/uL} Normal 0.0-0.4 [facility] Work Phone: Eosinophils/100 WBC (Bld) 4 % Normal [facility] Work Phone: Comment on above: PATIENT WAS FASTINGP ERFORMED BY: [address] [id number] Information: [id number] Eosinophils/100 WBC Auto (Bld) 4 % Normal [facility] Work Phone: Erythrocyte distribution width (RBC) [Ratio] 13.4 % Normal 12.3-15.4 [facility] Work Phone: Comment on above: PATIENT WAS FASTINGP ERFORMED BY: [address] [id number] Information: [id number] Erythrocyte distribution width Auto Ratio (RBC) 13.4 % Normal 12.3-15.4 [facility] Work Phone: Hematocrit (Bld) [Volume fraction] 45.7 % Normal 34.0-46.6 [facility] Work Phone: Comment on above: PATIENT WAS FASTINGP ERFORMED BY: [address] [id number] Information: [id number] Hematocrit Auto Volume Fraction (Bld) 45.7 % Normal 34.0-46.6 [facility] Work Phone: Hemoglobin mass conc (Bld) 15.7 g/dL Normal 11.1-15.9 [facility] Work Phone: Comment on above: PATIENT WAS FASTINGP ERFORMED BY: [place] 6521770 [facility] [id number] Information: [id number] Immature granulocytes #/vol (Bld) 0.0 {x10E3/uL} Normal 0.0-0.1 [facility] Work Phone: Comment on above: PATIENT WAS FASTINGP ERFORMED BY: [facility] Lzsios8876 [facility] [id number] Information: [id number] Immature granulocytes (Bld) [#/Vol] 0.0 10*3/uL Normal 0.0-0.1 [facility]; [facility] Work Phone: Comment on above: PATIENT WAS FASTINGP ERFORMED BY: [address] [id number] Information: [id number] Immature granulocytes/100 WBC (Bld) 0 % Normal [facility] Work Phone: Comment on above: PATIENT WAS FASTINGP ERFORMED BY: [address] [id number] Information: [id number] Lymphocytes (Bld) [#/Vol] 1.8 {x10E3/uL} Normal 0.7-3.1 [facility] Work Phone: Comment on above: PATIENT WAS FASTINGP ERFORMED BY: [place] 6521770 [facility] [id number] Information: [id number] Lymphocytes (Bld) [#/Vol] 1.8 10*3/uL Normal 0.7-3.1 [facility]; [facility] Work Phone: Comment on above: PATIENT WAS FASTINGP ERFORMED BY: [address] [id number] Information: [id number] Lymphocytes Auto #/vol (Bld) 1.8 {x10E3/uL} Normal 0.7-3.1 [facility] Work Phone: Lymphocytes/100 WBC (Bld) 32 % Normal [facility] Work Phone: Comment on above: PATIENT WAS FASTINGP ERFORMED BY: [facility]6370 [facility] [id number] Information: [id number] Lymphocytes/100 WBC Auto (Bld) 32 % Normal [facility] Work Phone: MCH (RBC) [Entitic mass] 30.8 pg Normal 26.6-33.0 [facility] Work Phone: Comment on above: PATIENT WAS FASTINGP ERFORMED BY: [address] [id number] Information: [id number] MCH Auto Entitic mass (RBC) 30.8 pg Normal 26.6-33.0 [facility] Internal Medicine Work Phone: MCHC (RBC) [Mass/Vol] 34.4 g/dL Normal 31.5-35.7 [facility] Work Phone: Comment on above: PATIENT WAS FASTINGP ERFORMED BY: [place] 6521770 [facility] [id number] Information: [id number] MCHC Auto mass conc (RBC) 34.4 g/dL Normal 31.5-35.7 [facility] Internal Medicine Work Phone: MCV (RBC) [Entitic vol] 90 fL Normal 79-97 [facility] Internal Medicine Work Phone: Comment on above: PATIENT WAS FASTINGP ERFORMED BY: [address] [id number] Information: [id number] MCV Auto Entitic volume (RBC) 90 fL Normal 79-97 [facility] Internal Medicine Work Phone: Monocytes (Bld) [#/Vol] 0.7 {x10E3/uL} Normal 0.1-0.9 [facility] Internal Medicine Work Phone: Comment on above: PATIENT WAS FASTINGP ERFORMED BY: [place] 6521770 [facility] [id number] Information: [id number] Monocytes (Bld) [#/Vol] 0.7 10*3/uL Normal 0.1-0.9 [facility]; [facility] Work Phone: Comment on above: PATIENT WAS FASTINGP ERFORMED BY: CODY Azael Bridges6370 [facility] [id number] Information: [id number] Monocytes Auto #/vol (Bld) 0.7 {x10E3/uL} Normal 0.1-0.9 [facility] Work Phone: Monocytes/100 WBC (Bld) 13 % Normal [facility] Work Phone: Comment on above: PATIENT WAS FASTINGP ERFORMED BY: CODY [facility] Centersandy YeungHadowq12[address] [id number] Information: [id number] Monocytes/100 WBC Auto (Bld) 13 % Normal [facility] Work Phone: Neutrophils (Bld) [#/Vol] 2.9 {x10E3/uL} Normal 1.4-7.0 [facility] Work Phone: Comment on above: PATIENT WAS FASTINGP ERFORMED BY: CODY [facility] Centersandy YeungPjybvg480[address] [id number] Information: [id number] Neutrophils (Bld) [#/Vol] 2.9 10*3/uL Normal 1.4-7.0 [facility]; [facility] Work Phone: Comment on above: PATIENT WAS FASTINGP ERFORMED BY: [place] 6521770 [facility] [id number] Information: 111670,[id number] Neutrophils Auto #/vol (Bld) 2.9 {x10E3/uL} Normal 1.4-7.0 [facility] Work Phone: Neutrophils/100 WBC (Bld) 51 % Normal [facility] Work Phone: Comment on above: PATIENT WAS FASTINGP ERFORMED BY: [address] [id number] Information: [id number] Neutrophils/100 WBC Auto (Bld) 51 % Normal [facility] Work Phone: Platelets (Bld) [#/Vol] 215 {x10E3/uL} Normal 150-379 [facility] Work Phone: Comment on above: PATIENT WAS FASTINGP ERFORMED BY: [address] [id number] Information: [id number] Platelets (Bld) [#/Vol] 215 10*3/uL Normal 150-379 [facility] Internal Medicine; [facility] Work Phone: Comment on above: PATIENT WAS FASTINGP ERFORMED BY: CODY [facility]6370 [facility] [id number] Information: [id number] Platelets Auto #/vol (Bld) 215 {x10E3/uL} Normal 150-379 [facility] Work Phone: RBC (Bld) [#/Vol] 5.10 {x10E6/uL} Normal 3.77-5.28 [facility] Internal Medicine Work Phone: Comment on above: PATIENT WAS FASTINGP ERFORMED BY: CODY [facility]6370 [facility] [id number] Information: [id number] RBC (Bld) [#/Vol] 5.10 10*6/uL Normal 3.77-5.28 [facility] Internal Medicine; [facility] Work Phone: Comment on above: PATIENT WAS FASTINGP ERFORMED BY: [place] 6521770 [facility] [id number] Information: [id number] RBC Auto #/vol (Bld) 5.10 {x10E6/uL} Normal 3.77-5.28 [facility] Internal Medicine Work Phone: WBC (Bld) [#/Vol] 5.7 {x10E3/uL} Normal 3.4-10.8 [facility] prehensive Internal Medicine Work Phone: Comment on above: PATIENT WAS FASTINGP ERFORMED BY: CODY Aden Mzqnjw7300 [facility] [id number] Information: [id number] WBC (Bld) [#/Vol] 5.7 10*3/uL Normal 3.4-10.8 Compre [facility] Internal Medicine; [facility] Work Phone: Comment on above: PATIENT WAS FASTINGP ERFORMED BY: 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 PATIENT WAS FASTINGP ERFORMED BY: [facility]6370 [facility] [id number] Cholesterol in LDL mass conc 138 mg/dL Abnormal 0-99 [facility] Work Phone: Comment on above: PATIENT WAS FASTINGP ERFORMED BY: [facility]6370 [facility] [id number] Cholesterol in LDL/Cholesterol in HDL mass ratio 3.8 {ratio_units} Abnormal 0.0-3.2 [facility] Work Phone: Comment on above: LDL/HDL Ratio Men Wo men 1/2 Avg.Risk 1.0 1.5 Avg.Risk 3.6 3.2 2X Avg.Risk 6.2 5.0 3X Avg.Risk 8.0 6.1 PATIENT WAS FASTINGP ERFORMED BY: CODY Yeunglin[address] [facility] [place] [id number] Cholesterol in VLDL mass conc 49 mg/dL Abnormal 5-40 [facility] Work Phone: Comment on above: PATIENT WAS FASTINGP ERFORMED BY: CODY Yeunglin[address] [facility] [place] [id number] Cholesterol mass conc 223 mg/dL Abnormal 100-199 Com prehensive Internal Medicine Work Phone: Comment on above: PATIENT WAS FASTINGP ERFORMED BY: CODY Yeunglin[address] [facility] [id number] Triglyceride mass conc 245 mg/dL Abnormal 0-149 Co mprehensive Internal Medicine Work Phone: Comment on above: PATIENT WAS FASTINGP ERFORMED BY: CODY Yeunglin6370 [facility] [id number] METABOLIC PANEL, COMPREHENSI VE (11744)Ordered By: Hollow Handle Knife Assembler on 07-01-2015 Albumin mass conc 4.5 g/dL Normal 3.5-5.5 Compreh ensive Internal Medicine Work Phone: Comment on above: PATIENT WAS FASTINGP ERFORMED BY: CODY Yeunglin6370 [facility] [place] [id number] Albumin/Globulin mass ratio 1.6 {ratio} Normal 1.1-2.5 [facility] Work Phone: Comment on above: PATIENT WAS FASTINGP ERFORMED BY: CODY LabAdelita Xzhmlo1916 [facility] [id number] ALP [Catalytic activity/Vol] 103 U/L Normal 39-117 [facility]; [facility] Work Phone: Comment on above: PATIENT WAS FASTINGP ERFORMED BY: CODY LabAdelita YeungMbmczr[address] [facility] [place] [id number] ALP enzyme act/vol 103 [iU]/L Normal 39-117 Compre hensive Internal Medicine Work Phone: Comment on above: PATIENT WAS FASTINGP ERFORMED BY: CODY LabCosandy YeungApjrol2000 [address] RoadDublin [place] [id number] ALT [Catalytic activity/Vol] 13 U/L Normal 0-32 [facility]; [facility] Internal Medicine Work Phone: Comment on above: PATIENT WAS FASTINGP ERFORMED BY: CODY LabCosandy YeungXzfojn2245 [address]ridge RoadDublin [place] [id number] ALT enzyme act/vol 13 [iU]/L Normal 0-32 [facility] Internal Medicine Work Phone: Comment on above: PATIENT WAS FASTINGP ERFORMED BY: CODY LabCosandy YeungKiflva9972 [address] RoadDublin [place] [id number] AST [Catalytic activity/Vol] 16 U/L Normal 0-40 [facility] Internal Medicine; [facility] Internal Medicine Work Phone: Comment on above: PATIENT WAS FASTINGP ERFORMED BY: CODY Yeunglin6370 [address] RoadDublin [place] [id number] AST enzyme act/vol 16 [iU]/L Normal 0-40 [facility] Internal Medicine Work Phone: Comment on above: PATIENT WAS FASTINGP ERFORMED BY: CODY LabAdelita YeungOfvexe4314 [address] RoadDublin [place] [id number] Bilirubin mass conc 0.5 mg/dL Normal 0.0-1.2 [facility] Internal Medicine Work Phone: Comment on above: PATIENT WAS FASTINGP ERFORMED BY: CODY LabCosandy YeungOopsgo2096 [address] RoadDublin [place] [id number] Calcium mass conc 9.6 mg/dL Normal 8.7-10.2 [facility] Internal Medicine Work Phone: Comment on above: PATIENT WAS FASTINGP ERFORMED BY: CODY LabCosandy Trfjwk1642 [address] RoadDublin [place] [id number] Chloride molar conc 100 mmol/L Normal 97-108 [facility] Internal Medicine Work Phone: Comment on above: PATIENT WAS FASTINGP ERFORMED BY: CODY LabCosandy YeungCylcgw2300 [address] RoadDublin [place] [id number] CO2 molar conc 27 mmol/L Normal 18-29 Comprehens nadya Internal Medicine Work Phone: Comment on above: PATIENT WAS FASTINGP ERFORMED BY: CODY Bridges6370 [facility] [id number] Creatinine mass conc 0.49 mg/dL Abnormal 0.57-1.00 Comp rehensive Internal Medicine Work Phone: Comment on above: PATIENT WAS FASTINGP ERFORMED BY: [facility]Tr[facility]6370 [facility] [id number] GFR/1.73 sq M predicted among blacks CKD-EPI vol rate/area (S/P/Bld) 123 mL/min/1.73 Normal [facility] Work Phone: Comment on above: PATIENT WAS FASTINGP ERFORMED BY: [facility]6370 [facility] [id number] GFR/1.73 sq M predicted among non-blacks CKD-EPI vol rate/area (S/P/Bld) 107 mL/min/1.73 Normal Comprehensiv e Internal Medicine Work Phone: Comment on above: PATIENT WAS FASTINGP ERFORMED BY: [facility] Dbrquc6170 [facility] [id number] Globulin (S) [Mass/Vol] 2.8 g/dL Normal 1.5-4.5 [facility] Work Phone: Comment on above: PATIENT WAS FASTINGP ERFORMED BY: [facility]Tr[facility]6370 [facility] [id number] Globulin Calculated mass conc (S) 2.8 g/dL Normal 1.5-4.5 [facility] Work Phone: Glucose mass conc 115 mg/dL Abnormal 65-99 Compreh ensive Internal Medicine Work Phone: Comment on above: PATIENT WAS FASTINGP ERFORMED BY: [facility]6370 [facility] [id number] Potassium molar conc 4.4 mmol/L Normal 3.5-5.2 Comp rehensive Internal Medicine Work Phone: Comment on above: PATIENT WAS FASTINGP ERFORMED BY: CODY [facility] Avtpkl7752 [facility] [id number] Protein mass conc 7.3 g/dL Normal 6.0-8.5 Compreh ensive Internal Medicine Work Phone: Comment on above: PATIENT WAS FASTINGP ERFORMED BY: CODY [facility] Zzzinz2301 [facility] [id number] Sodium molar conc 142 mmol/L Normal 134-144 Compreh ensive Internal Medicine Work Phone: Comment on above: PATIENT WAS FASTINGP ERFORMED BY: CODY LabCo Ztjsus9732 [facility] [id number] Urea nitrogen mass conc 13 mg/dL Normal 6-24 [facility] Work Phone: Comment on above: PATIENT WAS FASTINGP ERFORMED BY: CODY [facility] Uzydak2202 [facility] [id number] Urea nitrogen/Creatinine mass ratio 27 mg/mg Abnormal 9-23 [facility] Work Phone: Comment on above: PATIENT WAS FASTINGP ERFORMED BY: CODY [facility] Alapwg5296 [facility] [id number] TSH ([id number])Ordered By: Syste m Buggy Loader on 07-01-2015 Thyrotropin Qn 3.080 {uIU/mL} Normal 0.450-4.500 Compr ehensive Internal Medicine Work Phone: Comment on above: PATIENT WAS FASTINGP ERFORMED BY: [facility] Yhkxqp6483 [facility] [id number] HgA1C , Office ([id number])Ordere d By: Farrah Callaway on 02-16-2015 Hemoglobin A1c/Hemoglobin.total mass fraction (Bld) 7.7 % Abnormal 4.6 - 7.1 Comprehensiv e Internal Medicine Work Phone: Pap IG, HPV-hrOrdered By: Sy stem Buggy Loader on 01-29-2014 HPV 16+18+31+33+35+39+45+5 1+52+56+58+59+68 DNA Probe+sig amp Ql (Cvx) Negative Normal Comprehen [facility] Internal Medicine Work Phone: Comment on above: This high-risk HPV t est detects thirteen high-risk types(16/18/31/33/35/39/45/51/52/56/58/59/68) without differentiation. . PERFORMED BY: TransmensionEncompass Health [id number] BY: =G [employer] [place] [employer] GroupGrand View Health [id number] Information: [id number] Microscopic observation Other stain Nom (Unsp spec) . Normal [facility]prehhunting[facility] Internal Medicine Work Phone: Comment on above: PERFORMED BY: [facility]mensionsouthern [facility] WorkHound [id number] BY: =G [employer] [place] RelayEncompass Health [id number] Information: [id number] Pathology report final diagnosis Narrative SPRCS Normal Comprehensiv e Internal Medicine Work Phone: Comment on above: NEGATIVE FOR INTRAEP ITHELIAL LESION AND MALIGNANCY.Satisfactory for evaluation. Endocervical and/or squamous metaplasticcells (endocervical component) are present.Chelsea Vale, Garment Mender (ASCP) PERFORMED BY: [facility]mensionEncompass Health [id number] BY: =G [employer] [place] RelayEncompass Health [id number] Information: [id number] Pap IG, HPV-hr PAPSMR Normal [facility] Internal Medicine Work Phone: Comment [...] of an image guided system. PERFORMED BY: [employer] Ogivaqoqwr860[address] StreetmichaelSymmes HospitalalannaGrand View Health [id number] BY: =Eileen LabARTENCY.COM [address] Morgan StreetalannaGrand View Health [id number] Information: [id number] CBC WITH MANUAL DIFF ([id number]) Ordered By: Hollow Handle Knife Assembler on 01-27-2014 Basophils (Bld) [#/Vol] 0.0 {x10E3/uL} Normal 0.0-0.2 [facility] Work Phone: Comment on above: PERFORMED BY: Tw[employer] TVFormerly [facility] [id number] Basophils (Bld) [#/Vol] 0.0 10*3/uL Normal 0.0-0.2 [facility]; [facility] Work Phone: Comment on above: PERFORMED BY: [employer] [place] MediaFormerly [facility] [id number] Basophils Auto #/vol (Bld) 0.0 {x10E3/uL} Normal 0.0-0.2 [facility] Work Phone: Basophils/100 WBC (Bld) 0 % Normal 0-3 [facility] Work Phone: Comment on above: PERFORMED BY: [employer]6[address] [place] MediaFormerly [facility] [id number] Basophils/100 WBC Auto (Bld) 0 % Normal 0-3 [facility] Work Phone: Eosinophils (Bld) [#/Vol] 0.1 {x10E3/uL} Normal 0.0-0.4 [facility] Work Phone: Comment on above: PERFORMED BY: [employer]6[address] [place] MediaFormerly [facility] [id number] Eosinophils (Bld) [#/Vol] 0.1 10*3/uL Normal 0.0-0.4 [facility]; [facility] Work Phone: Comment on above: PERFORMED BY: [employer]70 ShopatronNov[facility] [id number] Eosinophils Auto #/vol (Bld) 0.1 {x10E3/uL} Normal 0.0-0.4 [facility] Work Phone: Eosinophils/100 WBC (Bld) 2 % Normal 0-5 [facility] Work Phone: Comment on above: PERFORMED BY: ReconRoboticsNov[facility] Health Cle[facility] [id number] Eosinophils/100 WBC Auto (Bld) 2 % Normal 0-5 [facility] Work Phone: Erythrocyte distribution width (RBC) [Ratio] 13.0 % Normal 12.3-15.4 [facility] Work Phone: Comment on above: PERFORMED BY: ReconRoboticsNov[facility] [id number] Erythrocyte distribution width Auto Ratio (RBC) 13.0 % Normal 12.3-15.4 [facility] Work Phone: Hematocrit (Bld) [Volume fraction] 43.4 % Normal 34.0-46.6 [facility] Work Phone: Comment on above: PERFORMED BY: ReconRoboticsNov[facility] [id number] Hematocrit Auto Volume Fraction (Bld) 43.4 % Normal 34.0-46.6 [facility] Work Phone: Hemoglobin mass conc (Bld) 14.4 g/dL Normal 11.1-15.9 [facility] Work Phone: Comment on above: PERFORMED BY: [employer] [facility] [facility] [id number] Immature granulocytes #/vol (Bld) 0.0 {x10E3/uL} Normal 0.0-0.1 [facility] Work Phone: Comment on above: PERFORMED BY: [employer] [place] [facility] [id number] Immature granulocytes (Bld) [#/Vol] 0.0 10*3/uL Normal 0.0-0.1 [facility]; [facility] Work Phone: Comment on above: PERFORMED BY: ReconRoboticsNov[facility] [id number] Immature granulocytes/100 WBC (Bld) 0 % Normal 0-2 [facility] Work Phone: Comment on above: PERFORMED BY: ReconRoboticsNov[facility] [id number] Lymphocytes (Bld) [#/Vol] 1.5 {x10E3/uL} Normal 0.7-3.1 [facility] Work Phone: Comment on above: PERFORMED BY: Twirl TVFormerly [facility] [id number] Lymphocytes (Bld) [#/Vol] 1.5 10*3/uL Normal 0.7-3.1 [facility]; [facility] Work Phone: Comment on above: PERFORMED BY: Imagistx EldridgeZoomCareNovant Health Cle[facility] [id number] Lymphocytes Auto #/vol (Bld) 1.5 {x10E3/uL} Normal 0.7-3.1 [facility] Work Phone: Lymphocytes/100 WBC (Bld) 26 % Normal 14-46 [facility] Work Phone: Comment on above: PERFORMED BY: ReconRoboticsNov[facility] [id number] Lymphocytes/100 WBC Auto (Bld) 26 % Normal 14-46 [facility] Work Phone: MCH (RBC) [Entitic mass] 30.6 pg Normal 26.6-33.0 [facility] Work Phone: Comment on above: PERFORMED BY: ReconRoboticsNov[facility] Health [facility] [id number] MCH Auto Entitic mass (RBC) 30.6 pg Normal 26.6-33.0 [facility] Work Phone: MCHC (RBC) [Mass/Vol] 33.2 g/dL Normal 31.5-35.7 [facility] prehensive Internal Medicine Work Phone: Comment on above: PERFORMED BY: Twirl TVFormerly [facility] [id number] MCHC Auto mass conc (RBC) 33.2 g/dL Normal 31.5-35.7 [facility] Work Phone: MCV (RBC) [Entitic vol] 92 fL Normal 79-97 [facility] Work Phone: Comment on above: PERFORMED BY: Twirl TVFormerly [facility] [id number] MCV Auto Entitic volume (RBC) 92 fL Normal 79-97 [facility] Internal Medicine Work Phone: Monocytes (Bld) [#/Vol] 0.5 {x10E3/uL} Normal 0.1-0.9 [facility] Work Phone: Comment on above: PERFORMED BY: Twirl TVFormerly [facility] [id number] Monocytes (Bld) [#/Vol] 0.5 10*3/uL Normal 0.1-0.9 [facility]; [facility] Work Phone: Comment on above: PERFORMED BY: Twirl TVFormerly [facility] [id number] Monocytes Auto #/vol (Bld) 0.5 {x10E3/uL} Normal 0.1-0.9 [facility] Work Phone: Monocytes/100 WBC (Bld) 8 % Normal 4-12 [facility] Work Phone: Comment on above: PERFORMED BY: [employer]70 ShopatronNov[facility] Health Cle[facility] [id number] Monocytes/100 WBC Auto (Bld) 8 % Normal 4-12 [facility] Work Phone: Neutrophils (Bld) [#/Vol] 3.7 {x10E3/uL} Normal 1.4-7.0 [facility] Work Phone: Comment on above: PERFORMED BY: Twirl TVbacharach institute for rehabilitation [place] [id number] Neutrophils (Bld) [#/Vol] 3.7 10*3/uL Normal 1.4-7.0 [facility]; [facility] Work Phone: Comment on above: PERFORMED BY: [employer] [facility] [id number] Neutrophils Auto #/vol (Bld) 3.7 {x10E3/uL} Normal 1.4-7.0 [facility] Work Phone: Neutrophils/100 WBC (Bld) 64 % Normal 40-74 [facility] Work Phone: Comment on above: PERFORMED BY: [employer]70 ShopatronNov[facility] Health Clemm[facility] [id number] Neutrophils/100 WBC Auto (Bld) 64 % Normal 40-74 [facility] Work Phone: Platelets (Bld) [#/Vol] 216 {x10E3/uL} Normal 155-379 [facility] Work Phone: Comment on above: PERFORMED BY: [employer]70 ShopatronNov[facility] Health [facility] [id number] Platelets (Bld) [#/Vol] 216 10*3/uL Normal 155-379 [facility]; [facility] Work Phone: Comment on above: PERFORMED BY: [employer]70 [address] [facility] [id number] Platelets Auto #/vol (Bld) 216 {x10E3/uL} Normal 155-379 [facility] Work Phone: RBC (Bld) [#/Vol] 4.70 {x10E6/uL} Normal 3.77-5.28 [facility] Internal Medicine Work Phone: Comment on above: PERFORMED BY: [employer]70 [facility] [id number] RBC (Bld) [#/Vol] 4.70 10*6/uL Normal 3.77-5.28 [facility] Internal Medicine; [facility] Work Phone: Comment on above: PERFORMED BY: [employer] [place] [id number] RBC Auto #/vol (Bld) 4.70 {x10E6/uL} Normal 3.77-5.28 [facility] Work Phone: WBC (Bld) [#/Vol] 5.9 {x10E3/uL} Normal 3.4-10.8 [facility] prehensive Internal Medicine Work Phone: Comment on above: PERFORMED BY: [employer] MediaFormerly [facility] [id number] WBC (Bld) [#/Vol] 5.9 10*3/uL Normal 3.4-10.8 Compre [facility] Internal Medicine; [facility] Work Phone: Comment on above: PERFORMED BY: Twirl TVFormerly [facility] [id number] WBC Auto #/vol (Bld) 5.9 {x10E3/uL} Normal 3.4-10.8 [facility] Work Phone: LIPID PANEL ([id number])Ordered B y: Hollow Handle Knife Assembler on 01-27-2014 Cholesterol in HDL mass conc 38 mg/dL Abnormal [facility] Work Phone: Comment on above: According to ATP-III Guidelines, HDL-C >59 mg/dL is considered anegative risk factor for CHD. PERFORMED BY: [employer]70 [address] MediaFormerly [facility] [id number] Cholesterol in LDL mass conc 127 mg/dL Abnormal 0-99 [facility] Work Phone: Comment on above: PERFORMED BY: [employer] MediaFormerly [facility] [id number] Cholesterol in LDL/Cholesterol in HDL mass ratio 3.3 {ratio_units} Abnormal 0.0-3.2 [facility] Work Phone: Comment on above: PERFORMED BY: [employer]70 [address] MediaFormerly [facility] [id number] Cholesterol in VLDL mass conc 40 mg/dL Normal 5-40 [facility] Work Phone: Comment on above: PERFORMED BY: [employer] Qwvifh54[address] RoadDublin [place] [id number] Cholesterol mass conc 205 mg/dL Abnormal 100-199 Com prehensive Internal Medicine Work Phone: Comment on above: PERFORMED BY: Tour Desklin[address] RoadDublin [place] [id number] Triglyceride mass conc 200 mg/dL Abnormal 0-149 Co mprehensive Internal Medicine Work Phone: Comment on above: PERFORMED BY: [employer] RoadDublin [place] [id number] METABOLIC PANEL, COMPREHENSI VE ([id number])Ordered By: Hollow Handle Knife Assembler on 01-27-2014 Albumin mass conc 4.1 g/dL Normal 3.5-5.5 Compreh ensive Internal Medicine Work Phone: Comment on above: PERFORMED BY: [employer]70 [address] RoadDublin [place] [id number] Albumin/Globulin mass ratio 1.4 {ratio} Normal 1.1-2.5 [facility] Work Phone: Comment on above: PERFORMED BY: [employer] RoadDublin [place] [id number] ALP [Catalytic activity/Vol] 97 U/L Normal 39-117 [facility]; [facility] Work Phone: Comment on above: PERFORMED BY: [employer]Dublin [place] [id number] ALP enzyme act/vol 97 [iU]/L Normal 39-117 [facility] Internal Medicine Work Phone: Comment on above: PERFORMED BY: Tour Desklin[address] RoadDublin [place] [id number] ALT [Catalytic activity/Vol] 11 U/L Normal 0-32 [facility]; [facility] Work Phone: Comment on above: PERFORMED BY: [employer]Dublin [place] [id number] ALT enzyme act/vol 11 [iU]/L Normal 0-32 Compre hensive Internal Medicine Work Phone: Comment on above: PERFORMED BY: Bills Khakis Adelita Jxkawo9[address] RoadScicastsblin [place] [id number] AST [Catalytic activity/Vol] 15 U/L Normal 0-40 [facility]; [facility] Work Phone: Comment on above: PERFORMED BY: SHIFT Lab Adelita Qimgio95[address] RoadScicastsblin [place] [id number] AST enzyme act/vol 15 [iU]/L Normal 0-40 [facility] Internal Medicine Work Phone: Comment on above: PERFORMED BY: SHIFT Lab [employer] RoadScicastsblin [place] [id number] Bilirubin mass conc 0.5 mg/dL Normal 0.0-1.2 [facility] Work Phone: Comment on above: PERFORMED BY: [employer] [place] [id number] Calcium mass conc 9.2 mg/dL Normal 8.7-10.2 Compreh [facility] phoenixive Internal Medicine Work Phone: Comment on above: PERFORMED BY: World[employer] Xyhess[address] Medd[address]bl[place] [id number] Chloride molar conc 103 mmol/L Normal 97-108 [facility] Work Phone: Comment on above: PERFORMED BY: Tour Desklin[address] [id number] CO2 molar conc 28 mmol/L Normal 19-28 Comprehens nadya Internal Medicine Work Phone: Comment on above: PERFORMED BY: World[employer] Bvjxqk00[address] RoadScicastsin [place] [id number] Creatinine mass conc 0.56 mg/dL Abnormal 0.57-1.[address] [facility] Work Phone: Comment on above: PERFORMED BY: [employer] Vzhtkf[address] [place] [id number] GFR/1.73 sq M predicted among blacks CKD-EPI vol rate/area (S/P/Bld) 119 mL/min/1.73 Normal [facility] Work Phone: Comment on above: PERFORMED BY: [employer] MediaFormerly [facility] [id number] GFR/1.73 sq M predicted among non-blacks CKD-EPI vol rate/area (S/P/Bld) 103 mL/min/1.73 Normal Comprehensiv e Internal Medicine Work Phone: Comment on above: PERFORMED BY: [employer]70 [address] MediaFormerly [facility] [id number] Globulin (S) [Mass/Vol] 3.0 g/dL Normal 1.5-4.5 [facility] Work Phone: Comment on above: PERFORMED BY: Twirl TVFormerly [facility] [id number] Globulin Calculated mass conc (S) 3.0 g/dL Normal 1.5-4.5 [facility] Work Phone: Glucose mass conc 108 mg/dL Abnormal 65-99 Compreh ensive Internal Medicine Work Phone: Comment on above: PERFORMED BY: [employer] MediaFormerly [facility] [id number] Potassium molar conc 3.9 mmol/L Normal 3.5-5.2 Comp rehensive Internal Medicine Work Phone: Comment on above: PERFORMED BY: [employer] MediaFormerly [facility] [id number] Protein mass conc 7.1 g/dL Normal 6.0-8.5 Compreh ensive Internal Medicine Work Phone: Comment on above: PERFORMED BY: [employer] MediaFormerly [facility] [id number] Sodium molar conc 142 mmol/L Normal 134-144 Compreh ensive Internal Medicine Work Phone: Comment on above: PERFORMED BY: Twirl TVFormerly [facility] [id number] Urea nitrogen mass conc 16 mg/dL Normal 6-24 [facility] Work Phone: Comment on above: PERFORMED BY: ReconRoboticsScicastsblin [place] [id number] Urea nitrogen/Creatinine mass ratio 29 mg/mg Abnormal 9-23 [facility] Work Phone: Comment on above: PERFORMED BY: SHIFT Lab Adelita Jpkvhj94[address] RoadDublin [place] [id number] TSH ([id number])Ordered By: Syste m Buggy Loader on 01-27-2014 Thyrotropin Qn 3.160 {uIU/mL} Normal 0.450-4.500 Compr ensive Internal Medicine Work Phone: Comment on above: PERFORMED BY: SHIFT Lab Adelita Jsyjgg[address] Medd[place]bl[place] [id number] Vitamin D Hydroxy (69492)Ord ered By: Hollow Handle Knife Assembler on 01-27-2014 25-Hydroxyvitamin D2+25-Hydroxyvitamin D3 mass conc 9.6 ng/mL Abnormal 30.0-100.0 [facility] Work Phone: Comment on above: Vitamin D deficiency has been defined by the [place] of[place]icine and an Endocrine Society practice guideline as alevel of serum 25-OH vitamin D less than 20 ng/mL (1,2).The Endocrine Society went on to further define vitamin Dinsufficiency as a level between 21 and 29 ng/mL (2).1. IOM ([place] of Medicine). 2010. Dietary reference intakes for calcium and D. [place]: The National Academies Press.2. Jenna MF, Melissa NC, Faraz DOWD, et al. Evaluation, treatment, and prevention of vitamin D deficiency: an Endocrine Society clinical practice guideline. JCEM. 2010; 96(7):1911-30. PERFORMED BY: SHIFT Lab Adelita Pszkbz9[address] RoadDublin [place] [id number] TSH ([id number])Ordered By: Alec m Buggy Loader on 02-01-2012 Thyrotropin Qn 4.030 {uIU/mL} Normal 0.450-4.500 Compr [facility] Internal Medicine Work Phone: Comment on above: PATIENT NOT FASTINGP ERFORMED BY: SHIFT [facility] Iyutnk[address] RoadDublin [place] [id number] Information: [id number] CAOrdered By: Hollow Handle Knife Assembler on 11-30-2009 Calcium mass conc 8.6 mg/dL Normal 8.5-10.1 Compreh ensive Internal Medicine Work Phone: CHEST, PA AND LATERAL (MT)Or dered By: Hollow Handle Knife Assembler on 11-30-2009 CHEST, PA AND LATERAL (MT) See Note Normal [facility] Work Phone: Comment on above: Exam Number: [id number] 61 PA AND LATERAL VIEWS OF THE CHEST HISTORYA 54-year-old woman with cough since last Saturday with associatedcongestion. COMPARISONAugust 19, 2007. PA and lateral views of the chest. Moderately tortuous aorta. The lungs are clear. Pleural marginsare sharp. The osseous structures are normal. IMPRESSIONNo evidence of acute disease. No evidence of pneumonia. Reported By: VALERIO MOSS M.D. PTH,IntactOrdered By: Hollow Handle Knife Assembler on 11-30-2009 PTH,Intact 77 pg/mL Abnormal 14-72 [facility] Work Phone: VIT D,25 [id number] By: [employer] stem Buggy Loader on 11-23-2009 VIT D,25 34717 4.6 ng/mL Abnormal 32.0-100.0 Comprehens nadya Internal Medicine Work Phone: Comment on above: Recent studies consi jonna the lower limit of 32.0 ng/mL to kailee threshold for optimal health.Damian TOM. J Nutr. 2004;135(2):317-22.Performed At: [employer]63TransGenRxPlant [place], [place] [id number] YOLIS-D [id number] By: Syst em Buggy Loader on 05-27-2008 Nuclear Ab Ql (S) 39 AU/mL Normal 0-99 Compreh ensive Internal Medicine Work Phone: Comment on above: Negative <100 Equivo ciara 100 - 120 Positive >120Performed At: DataminrRichmond, [place] [id number] C-REACTIVE PROTOrdered By: Lynne ystem Buggy Loader on 05-27-2008 CRP mass conc 2.91 mg/L Normal 0.0-6.0 Comprehensi ve Internal Medicine Work Phone: Comment on above: Test performed using the Dimension C-Reactive ProteinExtended Range assay method. This assay meets the AHA/CDC 2003 recommendations fordetermining patients at high risk for cardiovasculardisease. Reference: High risk CRP >3.0 mg/L CBCD,SMEAR DIFFOrdered By: Lynne tem Buggy Loader on 05-27-2008 Eosinophils/100 WBC (Bld) 2 % [...] (Bld) [Volume fraction] 40.1 % Normal 37-47 [facility] Internal Medicine Work Phone: Hematocrit Auto Volume Fraction (Bld) 40.1 % Normal 37-47 [facility] Internal Medicine Work Phone: Hemoglobin mass conc (Bld) 14.1 g/dL Normal 12.0-16.0 [facility] Internal Medicine Work Phone: Lymphocytes/100 WBC (Bld) 25 % Normal 19-41 [facility] Work Phone: Lymphocytes/100 WBC Auto (Bld) 25 % Normal 19-41 [facility] Internal Medicine Work Phone: MCH (RBC) [Entitic mass] 31.9 pg Normal 27.0-32.0 [facility] Internal Medicine Work Phone: MCH Auto Entitic mass (RBC) 31.9 pg Normal 27.0-32.0 [facility] Internal Medicine Work Phone: MCHC (RBC) [Mass/Vol] 35.1 g/dL Normal 32-36 [facility] prehensive Internal Medicine Work Phone: MCHC Auto mass conc (RBC) 35.1 g/dL Normal 32-36 [facility] Internal Medicine Work Phone: MCV (RBC) [Entitic vol] 90.7 fL Normal 81-99 [facility] Work Phone: MCV Auto Entitic volume (RBC) 90.7 fL Normal 81-99 [facility] Work Phone: Monocytes/100 WBC (Bld) 5 % Normal 0-10 [facility] Work Phone: Monocytes/100 WBC Auto (Bld) 5 % Normal 0-10 [facility] Internal Medicine Work Phone: Platelets (Bld) [#/Vol] 228 10*3/uL Normal 150-450 [facility] Work Phone: Platelets (Bld) [#/Vol] SeeNote Normal [facility] Internal Medicine Work Phone: Comment on above: Result: ADEQUATE Platelets Auto #/vol (Bld) 228 10*3/uL Normal 150-450 [facility] Internal Medicine Work Phone: RBC (Bld) [#/Vol] 4.42 {M/mm3} Normal 4.2-5.4 Compr ensive Internal Medicine Work Phone: RBC Auto #/vol (Bld) 4.42 {M/mm3} Normal 4.2-5.4 Co [facility] instituteehensive Internal Medicine Work Phone: WBC (Bld) [#/Vol] 8.2 10*3/uL Normal 4.4-11.0 [facility] Internal [facility] Work Phone: WBC Auto #/vol (Bld) 8.2 10*3/uL Normal 4.4-11.0 [facility] prehensive Internal Medicine Work Phone: CBCD,SMEAR DIFF 68 % Normal 47-70 [facility] Work Phone: CBCD,SMEAR DIFF 100 1 Normal [facility] Internal [facility] Work Phone: CBCD,SMEAR DIFF SeeNote Normal [facility] Internal Medicine Work Phone: Comment on above: Result: NORM C+C Result: ADEQUATE COMP METABOLICOrdered By: Sy stem Buggy Loader on 05-27-2008 Albumin mass conc 3.7 g/dL Normal 3.4-5.0 Compreh ensive Internal Medicine Work Phone: Albumin/Globulin mass ratio 1.0 {RATIO} Normal 0.9-2.4 [facility] Internal Medicine Work Phone: ALP enzyme act/vol 113 U/L Normal 50-136 Compre [facility] Internal Medicine Work Phone: ALT enzyme act/vol 34 U/L Normal 30-65 Compre [facility] Internal Medicine Work Phone: Anion gap 3 molar conc 4 mmol/L Abnormal 5-15 Co mprehensive Internal Medicine Work Phone: Anion gap [Moles/Vol] 4 mmol/L Abnormal 5-15 Com prehensive Internal Medicine Work Phone: AST enzyme act/vol 17 U/L Normal 15-37 Compre [facility] Internal Medicine Work Phone: Bilirubin mass conc 0.43 mg/dL Normal 0.00-1.00 Compr ensive Internal Medicine Work Phone: Calcium mass conc 8.7 mg/dL Normal 8.5-10.1 Compreh [facility] Internal [facility] Work Phone: Chloride molar conc 103 mmol/L Normal 98-107 Compr [facility] Internal Medicine Work Phone: CO2 molar conc 30.9 mmol/L Normal 21.0-32.0 Comprehen [facility] Internal Medicine Work Phone: Creatinine mass conc 0.7 mg/dL Normal 0.6-1.0 [facility] Work Phone: Globulin (S) [Mass/Vol] 3.8 g/dL Normal 2.7-4.2 [facility] Internal Medicine Work Phone: Globulin Calculated mass conc (S) 3.8 g/dL Normal 2.7-4.2 [facility] Internal Medicine Work Phone: Glucose mass conc 90 mg/dL Normal 70-110 Compreh [facility] Internal Medicine Work Phone: Potassium molar conc 3.4 mmol/L Abnormal 3.5-5.[address] 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 Endocervical and/or squamous metaplasticcells (endocervical component) are present.V72.31 ; Routine gynecological examinationChleonidas Curry, Garment Mender (ASCP)Sunshine Green, Supervisory Garment Mender (ASCP) Source.............C ervical;EndocervicalLMP / Prev Treat...GQW=[id number]. of containers..01 CYTYC Thin Prep VialPATIENT NOT FASTINGClinical Information: ADD [id number] PERFORMED BY: mymxlog [address] [id number] Thin prep Pap ([id number]) . Normal Com prehensive Internal Medicine Work Phone: Comment on above: Source.............C ervical;EndocervicalLMP / Prev Treat...MYE=[id number]. of containers..01 CYTYC Thin Prep VialPATIENT NOT FASTINGClinical Information: ADD [id number] PERFORMED BY: mymxlog [address] [id number] Thin prep Pap ([id number]) PAPSMR Normal [facility] prehensive Internal Medicine Work Phone: Comment on [...] was performed. . Source.............C ervical;EndocervicalLMP / Prev Treat...[id number]=[id number]. of containers..01 CYTYC Thin Prep VialPATIENT NOT FASTINGClinical Information: ADD [id number] PERFORMED BY: [facility] [id number] LIPIDOrdered By: Mahogany spivey on 12-17-2007 Cholesterol in HDL mass conc 42 mg/dL Normal [facility] Work Phone: Comment on above: Reference Range HDL <40 mg/dL Low HDL Cholesterol HDL >or= 60 mg/dL High HDL Cholesterol Cholesterol in LDL mass conc 149 mg/dL Abnormal 0-130 [facility] Work Phone: Cholesterol in VLDL mass conc 60 mg/dL Abnormal 5-40 [facility] Internal Medicine Work Phone: Cholesterol mass conc 251 mg/dL Abnormal [facility] prehensive Internal Medicine Work Phone: Comment on above: <200 mg/dL Desirable 200-240 mg/dL Borderline >240 mg/dL High Risk Triglyceride mass conc 302 mg/dL Abnormal Co [facility] Internal [facility] Work Phone: Comment on above: Serum Triglycerides Reference Interval Normal <150 mg/dL Borderline high 150 - 199 mg/dL High 200 - 499 mg/dL Very High > or = 500 mg/dL LIVEROrdered By: Mahogany spivey on 12-17-2007 Albumin mass conc 4.2 g/dL Normal 3.4-5.0 Compreh ensive Internal Medicine Work Phone: ALP enzyme act/vol 130 U/L Normal 50-136 Compre [facility] Work [facility]: ALT enzyme act/vol 36 [iU]/L Normal 30-65 Compre [facility] Internal Medicine Work Phone: AST enzyme act/vol 19 U/L Normal 15-37 Compre [facility] Internal Medicine Work Phone: Bilirubin mass conc 0.48 mg/dL Normal 0.00-1.00 [facility] ehensive Internal Medicine Work Phone: Bilirubin.direct mass conc 0.15 mg/dL Normal 0.00-0.30 [facility] Work Phone: Protein mass conc 7.7 g/dL Normal 6.4-8.2 Compreh ensive Internal Medicine Work Phone: TSHOrdered By: System Manage r on 12-17-2007 Thyrotropin Qn 2.48 {uIU/mL} Normal 0.34-4.82 [facility] Work Phone: CHEST, PA AND LATERALOrdered By: Hollow Handle Knife Assembler on 08-19-2007 CHEST, PA AND LATERAL See Note Normal Com prehensive Internal Medicine Work Phone: Comment on above: Exam Number: [id number] 84 PA AND LATERAL CHEST HISTORY Being [...] Order Rapid Viral Culture for Influenzae A+B ([id number]) if clinically indicated.RESULTS CALLED TO DR ALBERTO(KIKI) 08/19/07 [id number] PRESTONREPORT READ BACK BY SAME. INFLUENZA ANTIGEN,DIRECT Presumptive NEGATIVE for Influenza A/B Antigen (See Note) CALL RESULTS Rapid Strep Test, Office ([phone])on 08-19-2007 S. pyogenes Ag EIA Ql (Throat) Negative Normal [facility]; [facility] Work Phone: Comment on above: done kmnegative Rapid Strep Test, Office ([phone])Ordered By: Marija Lyn on 08-19-2007 S. pyogenes Ag IA Ql (Unsp spec) Negative Normal [facility] Work Phone: Comment on above: done kmnegative Upper Respiratory CultureOrd ered By: Hollow Handle Knife Assembler on 08-19-2007 Bacteria identified Respiratory culture Nom (Unsp spec) RRF Normal [facility] Work Phone: Comment on above: Routine respiratory vanessa Clinical Information : SRC: ADD [id number] PERFORMED BY: [facility] [id number] Bacteria identified Respiratory culture Nom (Unsp spec) Final report Normal [facility] Work Phone: Comment on above: Clinical Information : SRC: ADD [id number] PERFORMED BY: [facility]Former[facility] [id number] Vital Signs Date Time Vital Sign Value Performing Clinician Facility 06-14-2025 11:24-0400 Body height 165.[address] Madelin Alberto DO Work Phone: [facility] 06-14-2025 11:24-0400 Body mass index (BMI) [Ratio] 28.8 kg/m2 Dr. Madelin Alberto DO Work Phone: [facility] 06-14-2025 11:24-0400 Body weight 78.[address] Madelin Alberto DO Work Phone: [facility] 06-14-2025 11:24-0400 Diastolic blood pressure 87 mm[Hg] Dr. Madelin Alberto DO Work Phone: [facility] 06-14-2025 11:24-0400 Heart rate 79 /min Dr. Madelin Alberto DO Work Phone: [facility] 06-14-2025 11:24-0400 SaO2% (BldA) [Mass fraction] 93 % Dr. Madelin Alberto DO Work Phone: [facility] 06-14-2025 11:24-0400 Systolic blood pressure 143 mm[Hg] Dr. Madelin Alberto DO Work Phone: [facility] 02-11-2025 10:41-0400 Diastolic blood pressure 81 mm[Hg] Dr. Madelin Alberto DO Work Phone: [facility] 02-11-2025 10:41-0400 Heart rate 79 /min Dr. Madelin Alberto DO Work Phone: [facility] 02-11-2025 10:41-0400 Systolic blood pressure 150 mm[Hg] Dr. Madelin Alberto DO Work Phone: [facility] 02-11-2025 09:47-0400 Body height 165.[address] Madelin Alberto DO Work Phone: [facility] 02-11-2025 09:47-0400 Body mass index (BMI) [Ratio] 29.7 kg/m2 Dr. Madelin Alberto DO Work Phone: [facility] 02-11-2025 09:47-0400 Body temperature 97 [degF] Dr. Madelin Alberto DO Work Phone: [facility] 02-11-2025 09:47-0400 Body weight 81.[address] Madelin Alberto DO Work Phone: [facility] 02-11-2025 09:47-0400 Respiratory rate 16 /min Dr. Madelin Alberto DO Work Phone: [facility] 02-11-2025 09:47-0400 SaO2% (BldA) [Mass fraction] 95 % Dr. Madelin Alberto DO Work Phone: [facility] 02-08-2025 09:49-0400 Body mass index (BMI) [Ratio] 29.9 kg/m2 Dr. Madelin Alberto DO Work Phone: [facility] 02-08-2025 09:49-0400 Body weight 81.[address] Madelin Alberto DO Work Phone: [facility] 02-08-2025 09:49-0400 Diastolic blood pressure 83 mm[Hg] Dr. Madelin Albreto DO Work Phone: [facility] 02-08-2025 09:49-0400 Heart rate 81 /min Dr. Madelin Alberto DO Work Phone: [facility] 02-08-2025 09:49-0400 SaO2% (BldA) [Mass fraction] 93 % Dr. Madelin Alberto DO Work Phone: [facility] 02-08-2025 09:49-0400 Systolic blood pressure 155 mm[Hg] Dr. Madelin Alberto DO Work Phone: [facility] 11-09-2024 09:35-0500 Body height 165.[address] Madelin Alberto DO Work Phone: [facility] 11-09-2024 09:35-0500 Body mass index (BMI) [Ratio] 30.1 kg/m2 Dr. Madelin Alberto DO Work Phone: [facility] 11-09-2024 09:35-0500 Body weight 82.[address] Madelin Alberto DO Work Phone: [facility] 11-09-2024 09:35-0500 Diastolic blood pressure 89 mm[Hg] Dr. Madelin Alberto DO Work Phone: [facility] 11-09-2024 09:35-0500 Heart rate 73 /min Dr. Madelin Alberto DO Work Phone: [facility] 11-09-2024 09:35-0500 SaO2% (BldA) [Mass fraction] 95 % Dr. Madelin Alberto DO Work Phone: [facility] 11-09-2024 09:35-0500 Systolic blood pressure 169 mm[Hg] Dr. Madelin Alberto DO Work Phone: [facility] 11-28-2023 14:59-0500 Body temperature 98.9 [degF] Dr. Madelin Alberto Work Phone: [facility] 11-28-2023 14:59-0500 Diastolic blood pressure 81 mm[Hg] Dr. Madelin Alberto Work Phone: [facility] 11-28-2023 14:59-0500 Heart rate 76 /min Dr. Madelin Alberto Work Phone: [facility] 11-28-2023 14:59-0500 Respiratory rate 16 /min Dr. Madelin Alberto Work Phone: [facility] 11-28-2023 14:59-0500 SaO2% (BldA) [Mass fraction] 97 % Dr. Madelin Alberto Work Phone: [facility] 11-28-2023 14:59-0500 Systolic blood pressure 157 mm[Hg] Dr. Madelin Alberto Work Phone: [facility] 11-28-2023 14:26-0500 Body height 165.[address] Madelin Alberto Work Phone: [facility] 11-28-2023 14:26-0500 Body mass index (BMI) [Ratio] 30.6 kg/m2 Dr. Madelin Alberto Work Phone: [facility] 11-28-2023 14:26-0500 Body weight 83.[address] Madelin Alberto Work Phone: [facility] 11-14-2023 13:37-0500 Body mass index (BMI) [Ratio] 30.1 kg/m2 Dr. Madelin Alberto Work Phone: [facility] 11-14-2023 13:37-0500 Body temperature 98.7 [degF] Dr. Madelin Alberto Work Phone: [facility] 11-14-2023 13:37-0500 Body weight 82.[address] Madelin Alberto Work Phone: [facility] 11-14-2023 13:37-0500 Diastolic blood pressure 86 mm[Hg] Dr. Madelin Alberto Work Phone: [facility] 11-14-2023 13:37-0500 Heart rate 84 /min Dr. Madelin Alberto Work Phone: [facility] 11-14-2023 13:37-0500 Respiratory rate 18 /min Dr. Madelin Alberto Work Phone: [facility] 11-14-2023 13:37-0500 SaO2% (BldA) [Mass fraction] 97 % Dr. Madelin Alberto Work Phone: [facility] 11-14-2023 13:37-0500 Systolic blood pressure 161 mm[Hg] Dr. Madelin Alberto Work Phone: [facility] 08-08-2023 13:13-0500 Body height 165.[address] Madelin Alberto Work Phone: [facility] 08-08-2023 13:13-0500 Body mass index (BMI) [Ratio] 31.6 kg/m2 Dr. Madelin Alberto Work Phone: [facility] 08-08-2023 13:13-0500 Body temperature 98 [degF] Dr. Madelin Alberto Work Phone: [facility] 08-08-2023 13:13-0500 Body weight 86.[address] Madelin Alberto Work Phone: [facility] 08-08-2023 13:13-0500 Diastolic blood pressure 76 mm[Hg] Dr. Madelin Alberto Work Phone: [facility] 08-08-2023 13:13-0500 Heart rate 80 /min Dr. Madelin Alberto Work Phone: [facility] 08-08-2023 13:13-0500 Respiratory rate 16 /min Dr. Madelin Alberto Work Phone: [facility] 08-08-2023 13:13-0500 SaO2% (BldA) [Mass fraction] 97 % Dr. Madelin Alberto Work Phone: [facility] 08-08-2023 13:13-0500 Systolic blood pressure 170 mm[Hg] Dr. Madelin Alberto Work Phone: [facility] 04-10-2023 14:41-0400 Body height 165.1 cm Sarah [facility]; [facility] Work Phone: 04-10-2023 14:41-0400 Body mass index (BMI) [Ratio] 30.7 kg/m2 Sarah [facility]; [facility] Work Phone: 04-10-2023 14:41-0400 Body surface area Derived from formula 1.91 m2 Sarah [facility]; [facility] Work Phone: 04-10-2023 14:41-0400 Body temperature 98.1 [degF] [facility]; [facility] Work Phone: 04-10-2023 14:41-0400 Body weight 83.69 kg [facility]; [facility] Work Phone: 04-10-2023 14:41-0400 Diastolic blood pressure 78 mm[Hg] [facility]; [facility] Work Phone: 04-10-2023 14:41-0400 Heart rate 72 /min [facility]; [facility] Work Phone: 04-10-2023 14:41-0400 Respiratory rate 16 /min Sarah [facility]; [facility] Work Phone: 04-10-2023 14:41-0400 SaO2% (BldA) [Mass fraction] 95 % Sarah [facility]; [facility] Work Phone: 04-10-2023 14:41-0400 Systolic blood pressure 120 mm[Hg] Sarah Sanchez [facility]; [facility] Work [...] 165.[address] Madelin Alberto Work Phone: [facility] 03-18-2023 13:50-0400 Body mass index (BMI) [Ratio] 30.4 kg/m2 Dr. aMdelin Alberto Work Phone: [facility] 03-18-2023 13:50-0400 Body temperature 98.2 [degF] Dr. Madelin Alberto Work Phone: [facility] 03-18-2023 13:50-0400 Body weight 83.[address] Madelin Alberto Work Phone: [facility] 03-18-2023 13:50-0400 Diastolic blood pressure 80 mm[Hg] Dr. Madelin Alberto Work Phone: [facility] 03-18-2023 13:50-0400 Heart rate 76 /min Dr. Madelin Alberto Work Phone: [facility] 03-18-2023 13:50-0400 Respiratory rate 16 /min Dr. Madelin Alberto Work Phone: [facility] 03-18-2023 13:50-0400 SaO2% (BldA) [Mass fraction] 92 % Dr. Madelin Alberto Work Phone: [facility] 03-18-2023 13:50-0400 Systolic blood pressure 170 mm[Hg] Dr. Madelin Alberto Work Phone: [facility] 03-13-2023 11:27-0400 Body height 165.1 cm [facility]; [facility] Work Phone: 03-13-2023 11:27-0400 Body mass index (BMI) [Ratio] 30.37 kg/m2 [facility]; [facility] Work Phone: 03-13-2023 11:27-0400 Body surface area Derived from formula 1.9 m2 [facility]; [facility] Work Phone: 03-13-2023 11:27-0400 Body temperature 96 [degF] [facility]; [facility] Work Phone: 03-13-2023 11:27-0400 Body weight 82.78 kg [facility]; [facility] Work Phone: 03-13-2023 11:27-0400 Diastolic blood pressure 80 mm[Hg] [facility]; [facility] Work Phone: 03-13-2023 11:27-0400 Heart rate 74 /min [facility]; [facility] Work Phone: 03-13-2023 11:27-0400 Respiratory rate 18 /min [facility]; [facility] Work Phone: 03-13-2023 11:27-0400 SaO2% (BldA) [Mass fraction] 94 % [facility]; [facility] Work Phone: 03-13-2023 11:27-0400 Systolic blood pressure 130 mm[Hg] [facility]; [facility] Work Phone: 02-26-2023 13:44-0400 Inhaled oxygen flow rate 2 L/min Dr. Madelin Alberto Work Phone: [facility] 02-26-2023 13:43-0400 Body temperature 98.1 [degF] Dr. Madelin Alberto Work Phone: [facility] 02-26-2023 13:43-0400 Diastolic blood pressure 75 mm[Hg] Dr. Madelin Alberto Work Phone: [facility] 02-26-2023 13:43-0400 Heart rate 87 /min Dr. Madelin Alberto Work Phone: [facility] 02-26-2023 13:43-0400 Respiratory rate 18 /min Dr. Madelin Alberto Work Phone: [facility] 02-26-2023 13:43-0400 SaO2% (BldA) [Mass fraction] 93 % Dr. Madelin Alberto Work Phone: [facility] 02-26-2023 13:43-0400 Systolic blood pressure 150 mm[Hg] Dr. Madelin Alberto Work Phone: [facility] 02-23-2023 12:58-0400 Body height 165.[address] Mdaelin Alberto Work Phone: [facility] 02-23-2023 12:58-0400 Body mass index (BMI) [Ratio] 30.7 kg/m2 Dr. Madelin Alberto Work Phone: [facility] 02-23-2023 12:58-0400 Body weight 83.[address] Madelin Alberto Work Phone: [facility] 01-23-2023 16:06-0400 Body height 165.1 cm [facility]; [facility] Work Phone: 01-23-2023 16:06-0400 Body mass index (BMI) [Ratio] 31.12 kg/m2 [facility]; [facility] Work Phone: 01-23-2023 16:06-0400 Body surface area Derived from formula 1.92 m2 [facility] Internal Medicine; [facility] Work Phone: 01-23-2023 16:06-0400 Body temperature 97.9 [degF] [facility]; [facility] Work Phone: 01-23-2023 16:06-0400 Body weight 84.82 kg [facility]; [facility] Work Phone: 01-23-2023 16:06-0400 Diastolic blood pressure 80 mm[Hg] [facility]; [facility] Work Phone: 01-23-2023 16:06-0400 Heart rate 76 /min [facility]; [facility] Work Phone: 01-23-2023 16:06-0400 Respiratory rate 18 /min [facility]; [facility] Work Phone: 01-23-2023 16:06-0400 SaO2% (BldA) [Mass fraction] 94 % [facility]; [facility] Work Phone: 01-23-2023 16:06-0400 Systolic blood pressure 130 mm[Hg] [facility]; [facility] Work Phone: 07-25-2022 15:28-0400 Body height 165.1 cm Tracy Kapadia [facility]; [facility] Work Phone: 07-25-2022 15:28-0400 Body mass index (BMI) [Ratio] 30.45 kg/m2 Tracy Kapadia [facility]; [facility] Work Phone: 07-25-2022 15:28-0400 Body surface area Derived from formula 1.9 m2 Tracy Kapadai [facility]; [facility] Work Phone: 07-25-2022 15:28-040 Body temperature 97.3 [degF] Tracy Kapadia [facility]; [facility] Work Phone: 07-25-2022 15:28-040 Body weight 83.01 kg Tracy Kapadia [employer] [facility]; [facility] Work Phone: 07-25-2022 15:28-040 Diastolic blood pressure 68 mm[Hg] Tracy Kapadia [facility]; [facility] Work Phone: 07-25-2022 15:28-0400 Heart rate 82 /min Tracy Kapadia [facility]; [facility] Work Phone: 07-25-2022 15:28-0400 Respiratory rate 16 /min Tracy Kapadia [facility]; [facility] Work Phone: 07-25-2022 15:28-0400 SaO2% (BldA) [Mass fraction] 93 % Tracy Kapadia [facility]; [facility] Work Phone: 07-25-2022 15:28-0400 Systolic blood pressure 108 mm[Hg] Tracy Kapadia [facility]; [facility] Work Phone: 04-26-2022 14:23-0400 Body height 165.[address] Madelin Alberto Work Phone: [facility] Work Phone: 04-26-2022 14:23-0400 Body mass index (BMI) [Ratio] 30.6 kg/m2 Dr. Madelin Alberto Work Phone: [facility] Work Phone: 04-26-2022 14:23-0400 Body temperature 97.3 [degF] Dr. Madelin Alberto Work Phone: [facility] Work Phone: 04-26-2022 14:23-0400 Body weight 83.[address] Madelin Alberto Work Phone: [facility] Work Phone: 04-26-2022 14:23-0400 Diastolic blood pressure 80 mm[Hg] Dr. Madelin Alberto Work Phone: [facility] Work Phone: 04-26-2022 14:23-0400 Heart rate 97 /min Dr. Madelin Alberto Work Phone: [facility] Work Phone: 04-26-2022 14:23-0400 Respiratory rate 16 /min Dr. Madelin Alberto Work Phone: [facility] Work Phone: 04-26-2022 14:23-0400 SaO2% (BldA) [Mass fraction] 93 % Dr. Madelin Alberto Work Phone: [facility] Work Phone: 04-26-2022 14:23-0400 Systolic blood pressure 150 mm[Hg] Dr. Madelin Alberto Work Phone: [facility] Work Phone: 02-22-2022 14:21-0400 Body mass index (BMI) [Ratio] 30.1 kg/m2 Dr. Madelin Alberto Work Phone: [facility] Work Phone: 02-22-2022 14:21-0400 Body temperature 96.3 [degF] Dr. Madelin Alberto Work Phone: [facility] Work Phone: 02-22-2022 14:21-0400 Body weight 82.[address] Madelin Alberto Work Phone: [facility] Work Phone: 02-22-2022 14:21-0400 Diastolic blood pressure 96 mm[Hg] Dr. Madelin Alberto Work Phone: [facility] Work Phone: 02-22-2022 14:21-0400 Heart rate 83 /min Dr. Madelin Alberto Work Phone: [facility] Work Phone: 02-22-2022 14:21-0400 Respiratory rate 18 /min Dr. Madelin Alberto Work Phone: [facility] Work Phone: 02-22-2022 14:21-0400 SaO2% (BldA) [Mass fraction] 92 % Dr. Madelin Alberto Work Phone: [facility] Work Phone: 02-22-2022 14:21-0400 Systolic blood pressure 150 mm[Hg] Dr. Madelin Alberto Work Phone: [facility] Work Phone: 01-08-2022 11:40-0400 Body height 165.1 cm Tracy Deniseyissel [facility]; [facility] Work Phone: 01-08-2022 11:40-0400 Body mass index (BMI) [Ratio] 30.45 kg/m2 [facility]; [facility] Work Phone: 01-08-2022 11:40-0400 Body surface area Derived from formula 1.9 m2 Tracy Walkeryissel [facility]; [facility] Work Phone: 01-08-2022 11:40-0400 Body temperature 97.3 [degF] Tracy [facility]; [facility] Work Phone: 01-08-2022 11:40-0400 Body weight 83.01 kg Tracy Kapadia [facility]; [facility] Work Phone: 01-08-2022 11:40-0400 Diastolic blood pressure 70 mm[Hg] Tracy Kapadia [employer] [facility]; [facility] Work Phone: 01-08-2022 11:40-0400 Heart rate 90 /min Tracy Kapadia [facility]; [facility] Work Phone: 01-08-2022 11:40-0400 Respiratory rate 18 /min Tracy Kapadia [facility]; [facility] Work Phone: 01-08-2022 11:40-0400 SaO2% (BldA) [Mass fraction] 94 % Tracy Kapadia [facility]; [facility] Work Phone: 01-08-2022 11:40-0400 Systolic blood pressure 118 mm[Hg] Tracy Kapadia [facility]; [facility] Work Phone: 05-12-2021 10:46-0400 Body height 165.1 cm Tracy Kapadia [facility]; [facility] Work Phone: Comment on above: no vs taken as this is phone encounter d ue to covid 05-12-2021 10:46-0400 Body mass index (BMI) [Ratio] 29.12 kg/m2 Tracy Kapadia [facility]; [facility] Work Phone: Comment on above: no vs taken as this is phone encounter d ue to covid 05-12-2021 10:46-0400 Body surface area Derived from formula 1.87 m2 Tracy Kapadia [facility]; [facility] Work Phone: Comment on above: no vs taken as this is phone encounter d ue to covid 05-12-2021 10:46-0400 Body temperature 97.3 [degF] Tracy Kapadia [facility]; [facility] Work Phone: Comment on above: Method: Infrared no vs taken as this is phone encounter due to covid 05-12-2021 10:46-0400 Body weight 79.38 kg Tracy Kapadia [facility]; [facility] Work Phone: Comment on above: no vs taken as this is phone encounter d ue to covid 05-12-2021 10:46-0400 Diastolic blood pressure 84 mm[Hg] Tracy Kapadia [facility]; [facility] Work Phone: Comment on above: Patient Position: Sitting; Cuff Location : Left Arm; Cuff Size: Standard no vs taken as this is phone encounter due to covid 05-12-2021 10:46-0400 Heart rate 74 /min Tracy Kapadia [facility]; [facility] Work Phone: Comment on above: Pattern: Regular no vs taken as this is phone encounter due to covid 05-12-2021 10:46-0400 Respiratory rate 20 /min Tracy Kapadia [facility]; [facility] Work Phone: Comment on above: Pattern: Unlabored no vs taken as this is phone encounter due to covid 05-12-2021 10:46-0400 SaO2% (BldA) [Mass fraction] 94 % Tracy Kapadia [facility]; [facility] Work Phone: Comment on above: Room air no vs taken as this is phone encounter due to covid 05-12-2021 10:46-0400 Systolic blood pressure 142 mm[Hg] Tracy Kapadia [facility]; [facility] Work [...] index (BMI) [Ratio] 28.79 kg/m2 Krissy Hebert [facility] Internal Medicine; [facility] Work Phone: 03-20-2021 08:50-0400 Body surface area Derived from formula 1.86 m2 Krissy Slarb [employer]IDEO GAME ANIMATOR [facility]; [facility] Work Phone: 03-20-2021 08:50-0400 Body temperature 97.1 [degF] Krissy Slarb VIDEO GAME ANIMATOR [facility]; [facility] Work Phone: 03-20-2021 08:50-0400 Body weight 78.47 kg Krissy Manavrb VIDEO GAME ANIMATOR [facility]; [facility] Work Phone: 03-20-2021 08:50-0400 Diastolic blood pressure 80 mm[Hg] Krissy Slarb VIDEO GAME ANIMATOR [facility]; [facility] Work Phone: Comment on above: Patient Position: Sitting; Cuff Location : Left Arm; Cuff Size: Standard 03-20-2021 08:50-0400 Heart rate 87 /min Krissy Slarb VIDEO GAME ANIMATOR [facility]; [facility] Work Phone: Comment on above: Pattern: Regular 03-20-2021 08:50-0400 Respiratory rate 17 /min Krissy Slarb [employer]IDEO GAME ANIMATOR [facility]; [facility] Work Phone: Comment on above: Pattern: Unlabored 03-20-2021 08:50-0400 SaO2% (BldA) [Mass fraction] 93 % Krissy Slarb VIDEO GAME ANIMATOR [facility]; [facility] Work Phone: Comment on above: Room air 03-20-2021 08:50-0400 Systolic blood pressure 132 mm[Hg] Krissy Slarb VIDEO GAME ANIMATOR [facility]; [facility] Work Phone: Comment on above: Patient Position: Sitting; Cuff Location : Left Arm; Cuff Size: Standard 08-24-2020 08:15-0500 BMI (Body Mass Index) 28.35 kg/m2 Elvia Sylvester LPN [facility] Internal Medicine Work Phone: 08-24-2020 08:15-0500 Body weight 77.28 kg Elvia Higinio PERKINS [facility] Work Phone: 08-24-2020 08:15-0500 BSA (Body Surface Area) 1.85 m2 [facility] Internal Medicine Work Phone: 08-24-2020 08:15-0500 Height 165.1 cm [facility] Internal Medicine Work Phone: 04-28-2020 10:30-0400 BMI (Body Mass Index) 28.35 kg/m2 Tracy Kapadia [facility] Internal Medicine Work Phone: 04-28-2020 10:30-0400 Body Temperature 96.8 [degF] Tracy Kapadia [facility] Internal Medicine Work Phone: Comment on above: Method: Temporal 04-28-2020 10:30-0400 Body weight 77.28 kg Tracy Kapadia [facility] Internal Medicine Work Phone: 04-28-2020 10:30-0400 BP Diastolic 88 mm[Hg] Tracy Kapadia [facility] Internal Medicine Work Phone: Comment on above: Patient Position: Sitting; Cuff Location : Left Arm; Cuff Size: Standard 04-28-2020 10:30-0400 BP Systolic 122 mm[Hg] Tracy Kapadia [facility] Internal Medicine Work Phone: Comment on above: Patient Position: Sitting; Cuff Location : Left Arm; Cuff Size: Standard 04-28-2020 10:30-0400 BSA (Body Surface Area) 1.85 m2 Trcay Kapadia [facility] Internal Medicine Work Phone: 04-28-2020 10:30-0400 Height 165.1 cm Tracy Kapadia [facility] Internal Medicine Work Phone: 04-28-2020 10:30-0400 Pulse (Heart Rate) 73 /min Tracy Kapadia [facility] Internal Medicine Work Phone: Comment on above: Pattern: Regular 04-28-2020 10:30-0400 Pulse Oximetry 93 % Madelin Alberto [facility] Internal Medicine Work Phone: Comment on above: Room air 04-28-2020 10:30-0400 Respiratory Rate 16 /min Tracy Kapadia [facility] Internal Medicine Work Phone: Comment on above: Pattern: Unlabored 04-28-2020 10:30-0400 SaO2% (BldA) [Mass fraction] 93 % Tracy [facility]ad[facility] Internal Medicine; [facility] Work Phone: Comment on above: Room air 02-12-2020 12:59-0400 BMI (Body Mass Index) 28.35 kg/m2 Tracy [facility]adia [facility] Internal Medicine Work Phone: 02-12-2020 12:59-0400 Body Temperature 97.2 [degF] Tracy [facility]ad[facility] Internal Medicine Work Phone: Comment on above: Method: Temporal 02-12-2020 12:59-0400 Body weight 77.28 kg Tracy [facility]ad[facility] Internal Medicine Work Phone: 02-12-2020 12:59-0400 BP Diastolic 73 mm[Hg] Tracy Kapadia [facility] Internal Medicine Work Phone: Comment on above: Patient Position: Sitting; Cuff Location : Left Arm; Cuff Size: Standard 02-12-2020 12:59-0400 BP Systolic 118 mm[Hg] Tracy Kapad[facility] Internal Medicine Work Phone: Comment on above: Patient Position: Sitting; Cuff Location : Left Arm; Cuff Size: Standard 02-12-2020 12:59-0400 BSA (Body Surface Area) 1.85 m2 Tracy [facility] Internal Medicine Work Phone: 02-12-2020 12:59-0400 Height 165.1 cm Tracy [facility] Internal Medicine Work Phone: 02-12-2020 12:59-0400 Pulse (Heart Rate) 82 /min Tracy [facility]ad[facility] Internal Medicine Work Phone: Comment on above: Pattern: Regular 02-12-2020 12:59-0400 Pulse Oximetry 97 % Madelin Miguel [facility] Internal Medicine Work Phone: Comment on above: Room air 02-12-2020 12:59-0400 Respiratory Rate 16 /min Tracy [facility] Internal Medicine Work Phone: Comment [...] (Body Mass Index) 29.18 kg/m2 Tracy Kapadia [facility] Internal Medicine Work Phone: 05-06-2019 16:14-0400 Body Temperature 98.2 [degF] Tracy Kapadia [facility] Medicine Work Phone: Comment on above: Method: Temporal 05-06-2019 16:14-0400 Body weight 79.55 kg Tracy Kapadia [facility] Medicine Work Phone: 05-06-2019 16:14-0400 BP Diastolic 84 mm[Hg] Tracy Kang [facility] Medicine Work Phone: Comment on above: Patient Position: Sitting; Cuff Location : Left Arm; Cuff Size: Standard 05-06-2019 16:14-0400 BP Systolic 138 mm[Hg] Tracy Kapadia [facility] Medicine Work Phone: Comment on above: Patient Position: Sitting; Cuff Location : Left Arm; Cuff Size: Standard 05-06-2019 16:14-0400 BSA (Body Surface Area) 1.87 m2 Tracy Walkerius [facility] Internal Medicine Work Phone: 05-06-2019 16:14-0400 Height 165.1 cm Tracy Walkerius [facility] Medicine Work Phone: 05-06-2019 16:14-0400 Pulse (Heart Rate) 82 /min Tracy Walkerius [facility] Medicine Work Phone: Comment on above: Pattern: Regular 05-06-2019 16:14-0400 Pulse Oximetry 95 % Madelin Alberto [facility] Work Phone: Comment on above: Room air 05-06-2019 16:14-0400 Respiratory Rate 18 /min Tracy Kapadia [facility] Medicine Work Phone: Comment on above: Pattern: Unlabored 05-06-2019 16:14-0400 SaO2% (BldA) [Mass fraction] 95 % Tracy Kapadia [facility] Internal Medicine; [facility] Work Phone: Comment on above: Room air 01-28-2019 11:47-0400 BMI (Body Mass Index) 29.52 kg/m2 Tracy Kapadia [facility] Internal Medicine Work Phone: 01-28-2019 11:47-0400 Body Temperature 97.2 [degF] Tracy Kapadia [facility] Internal Medicine Work Phone: Comment on above: Method: Temporal 01-28-2019 11:47-0400 Body weight 80.46 kg Tracy Kapadia [facility] Internal Medicine Work Phone: 01-28-2019 11:47-0400 BP Diastolic 86 mm[Hg] Tracy Kapadia [facility] Internal Medicine Work Phone: Comment on above: Patient Position: Sitting; Cuff Location : Left Arm; Cuff Size: Standard 01-28-2019 11:47-0400 BP Systolic 126 mm[Hg] Tracy Kapadia [facility] Internal Medicine Work Phone: Comment on above: Patient Position: Sitting; Cuff Location : Left Arm; Cuff Size: Standard 01-28-2019 11:47-0400 BSA (Body Surface Area) 1.88 m2 Tracy Kapadia [facility] Internal Medicine Work Phone: 01-28-2019 11:47-0400 Height 165.1 cm Tracy Kapadia [facility] Internal Medicine Work Phone: 01-28-2019 11:47-0400 Pulse (Heart Rate) 77 /min Tracy Kapadia [facility] Internal Medicine Work Phone: Comment on above: Pattern: Regular 01-28-2019 11:47-0400 Pulse Oximetry 93 % Madelin Alberto [facility] Internal Medicine Work Phone: Comment on above: Room air 01-28-2019 11:47-0400 Respiratory Rate 18 /min Tracy Kapadia [facility] Medicine Work Phone: Comment on above: Pattern: Unlabored 01-28-2019 11:47-0400 SaO2% (BldA) [Mass fraction] 93 % Tracy Kapadia [facility]; [facility] Work Phone: Comment on above: Room air 08-20-2018 08:56-0500 BMI (Body Mass Index) 29.52 kg/m2 Bernarda Minaya RN [facility] Internal Medicine Work Phone: 08-20-2018 [...] Regular 07-02-2018 15:29-0400 Pulse Oximetry 95 % Madelin Alberto [facility] [...] 04-30-2018 16:14-0400 Weight 78.98 kg Madelin Alberto [facility] Internal Medicine Work Phone: 03-26-2018 13:57-0400 BMI (Body Mass Index) 28.87 kg/m2 [facility] Internal Medicine Work Phone: 03-26-2018 13:57-0400 Body Temperature 97.1 [degF] [facility] Internal Medicine Work Phone: Comment on above: Method: Temporal 03-26-2018 13:57-0400 Body weight 78.7 kg [facility] Internal Medicine Work Phone: 03-26-2018 13:57-0400 BP Diastolic 88 mm[Hg] [facility] Internal Medicine Work Phone: Comment on above: Patient Position: Sitting; Cuff Location : Left Arm; Cuff Size: Standard 03-26-2018 13:57-0400 BP Systolic 148 mm[Hg] [facility] Internal Medicine Work Phone: Comment on above: Patient Position: Sitting; Cuff Location : Left Arm; Cuff Size: Standard 03-26-2018 13:57-0400 BSA (Body Surface Area) 1.86 m2 [facility] Internal Medicine Work Phone: 03-26-2018 13:57-0400 Height 165.1 cm [facility] Internal Medicine Work Phone: 03-26-2018 13:57-0400 Pulse (Heart Rate) 70 /min [facility] Internal Medicine Work Phone: Comment on above: Pattern: Regular 03-26-2018 13:57-0400 Respiratory Rate 16 /min [facility] Internal Medicine Work Phone: Comment on above: Pattern: Unlabored 03-26-2018 13:57-0400 Weight 78.7 kg Madelin Alberto [facility] Internal Medicine Work Phone: 03-21-2018 13:27-0400 BMI [...] Phone: 03-21-2018 13:27-0400 Height 165.1 cm Kiki Cian RN [facility] Work Phone: 03-21-2018 [...] 16:04-0400 BSA (Body Surface Area) 1.86 m2 Kiki [...] 03-05-2018 16:04-0400 Weight 78.7 kg Madelin Miguel [facility] Internal Medicine Work Phone: 01-09-2018 11:02-0400 BMI (Body Mass Index) 28.62 kg/m2 Bernarda Minaya RN [facility] Internal Medicine Work Phone: 01-09-2018 [...] 16:38-0500 Body weight 79.44 kg Hiwot Lowe [facility] Internal Medicine Work Phone: Comment on above: recheck bp 158/100 12-02-2017 16:38-0500 BP Diastolic 108 mm[Hg] Hiwot Lowe [facility] Internal Medicine Work Phone: Comment on above: Patient Position: Sitting; Cuff Location : Left Arm; Cuff Size: Large recheck bp 158/100 12-02-2017 16:38-0500 BP Systolic 162 mm[Hg] Hiwot Lowe [facility] Internal Medicine Work Phone: Comment on above: Patient Position: Sitting; Cuff Location : Left Arm; Cuff Size: Large recheck bp 158/100 12-02-2017 16:38-0500 BSA (Body Surface Area) 1.87 m2 Hiwot Lowe [facility] Internal Medicine Work Phone: Comment on above: recheck bp 158/100 12-02-2017 16:38-0500 Height 165.1 cm Hiwot Lowe [facility] Internal Medicine Work Phone: Comment on above: recheck bp 158/100 12-02-2017 16:38-0500 Pulse (Heart Rate) 92 /min Hiwot Lowe [facility] Internal Medicine Work Phone: Comment on above: Pattern: Regular recheck bp 158/100 12-02-2017 16:38-0500 Pulse Oximetry 94 % Madelin Alberto [facility] Internal Medicine Work Phone: Comment on above: Room air recheck bp 158/100 12-02-2017 16:38-0500 Respiratory Rate 18 /min Hiwot Lowe [facility] Internal Medicine Work Phone: Comment on above: Pattern: Unlabored recheck bp 158/100 12-02-2017 16:38-0500 SaO2% (BldA) [Mass fraction] 94 % Hiwot Lowe [facility] Internal Medicine; [facility] Internal Medicine Work Phone: Comment on above: Room air recheck bp 158/100 12-02-2017 16:38-0500 Weight 79.44 kg Madelin Alberto [facility] Internal Medicine Work Phone: 11-05-2017 08:26-0500 BMI (Body Mass Index) 29.16 kg/m2 Hiwot Mynor [facility] Internal Medicine Work Phone: 11-05-2017 08:26-0500 [facility]: 11-05-2017 08:26-0500 BP Diastolic 94 mm[Hg] [facility] Work [facility]: Comment on above: Patient Position: Sitting; Cuff Location : Left Arm; Cuff Size: Standard 11-05-2017 08:26-0500 BP Systolic 158 mm[Hg] Hiwot [facility] Internal Medicine Work Phone: Comment on above: Patient Position: Sitting; Cuff Location : Left Arm; Cuff Size: Standard 11-05-2017 08:26-0500 BSA (Body Surface Area) 1.87 m2 Hiwot [facility] Internal Medicine Work Phone: 11-05-2017 08:26-0500 Height 165.1 [facility] Work Phone: 11-05-2017 08:26-0500 Pulse (Heart Rate) 85 /min [facility] Work Phone: Comment on above: Pattern: Regular 11-05-2017 08:26-0500 Pulse Oximetry 95 % Madelin Alberto [facility] Internal Medicine Work Phone: Comment on above: Room air 11-05-2017 08:26-0500 Respiratory Rate 18 /min [facility] Work Phone: Comment on above: Pattern: Unlabored 11-05-2017 08:26-0500 SaO2% (BldA) [Mass fraction] 95 % [facility]; [facility] Internal Medicine Work Phone: Comment on above: Room air 11-05-2017 08:26-0500 Weight 79.49 kg Madelin Alberto [facility] Internal Medicine Work Phone: 09-20-2017 09:45-0500 BMI (Body Mass Index) 29.16 kg/m2 Krissy Ambrosio LPN [facility] Work Phone: 09-20-2017 09:45-0500 Body Temperature 98.1 [degF] Krissy Manavrb VIDEO GAME ANIMATOR [facility] Work Phone: 09-20-2017 09:45-0500 Body weight 79.49 kg Krissy Manavrb VIDEO GAME ANIMATOR [facility] Work Phone: 09-20-2017 09:45-0500 BP Diastolic 82 mm[Hg] Krissy Slarb VIDEO GAME ANIMATOR [facility] Work Phone: Comment on above: Patient Position: Sitting; Cuff Location : Left Arm; Cuff Size: Standard 09-20-2017 09:45-0500 BP Systolic 132 mm[Hg] Krissy Slarb VIDEO GAME ANIMATOR [facility] Work Phone: Comment on above: Patient Position: Sitting; Cuff Location : Left Arm; Cuff Size: Standard 09-20-2017 09:45-0500 BSA (Body Surface Area) 1.87 m2 Krissy Slarb VIDEO GAME ANIMATOR [facility] Work Phone: 09-20-2017 09:45-0500 Height 165.1 cm Krissy Slarb VIDEO GAME ANIMATOR [facility] Work Phone: 09-20-2017 09:45-0500 Pulse (Heart Rate) 80 /min Krissy Manavrb VIDEO GAME ANIMATOR Comprehens e Internal Medicine Work Phone: Comment on above: Pattern: Regular 09-20-2017 09:45-0500 Pulse Oximetry 98 % Madelin Alberto [facility] Internal Medicine Work Phone: Comment on above: Room air 09-20-2017 09:45-0500 Respiratory Rate 16 /min Krissy Manavrb VIDEO GAME ANIMATOR [facility] Work Phone: Comment on above: Pattern: Unlabored 09-20-2017 09:45-0500 SaO2% (BldA) [Mass fraction] 98 % Krissy Slarb VIDEO GAME ANIMATOR [facility]; [facility] Work [...] 08-07-2017 15:53-0500 Pulse (Heart Rate) 92 /min Kiki Cain RN [facility] [...] Mass Index) 30.29 kg/m2 Bernarda Minaya RN [facility] Internal Medicine Work Phone: 04-22-2017 [...] 13:42-0500 BP Systolic 126 mm[Hg] Krissy Slarb VIDEO GAME ANIMATOR [facility] Work Phone: Comment on [...] BSA (Body Surface Area) 1.89 m2 Kiki Cain RN [facility] Work Phone: 08-03-2015 11:54-0500 Height 165.1 cm Kiki Cain RN [facility] Work Phone: 08-03-2015 11:54-0500 Pulse (Heart Rate) 76 /min Kiki Cain RN [facility] [...] Mass Index) 30.45 kg/m2 Bernarda Minaya RN [facility] Internal Medicine Work Phone: 07-01-2015 [...] Phone: 02-16-2015 11:51-0400 Body weight 85.28 kg Kiki Cain RN [facility] [...] 11:51-0400 Pulse (Heart Rate) 84 /min Kiki Cain [...] 01-27-2014 10:12-0400 Weight 78.47 kg Madelin Alberto [facility] Internal Medicine Work Phone: 12-01-2012 16:19-0500 BMI (Body Mass Index) 31.35 kg/m2 Paz Huff LPN [facility] Internal Medicine Work Phone: 12-01-2012 16:19-0500 Body Temperature 97.9 [degF] Paz Huff LPN [facility] Internal Medicine Work Phone: Comment on above: Method: Oral 12-01-2012 16:19-0500 Body weight 85.45 kg Paz Huff LPN [facility] Internal Medicine Work Phone: 12-01-2012 16:19-0500 BP Diastolic 72 mm[Hg] Paz Huff LPN [facility] Internal Medicine Work Phone: Comment on above: Patient Position: Sitting; Cuff Location : Left Arm; Cuff Size: Standard 12-01-2012 16:19-0500 BP Systolic 120 mm[Hg] Paz Huff LPN [facility] Work Phone: Comment on above: Patient Position: Sitting; Cuff Location : Left Arm; Cuff Size: Standard 12-01-2012 16:19-0500 BSA (Body Surface Area) 1.93 m2 Paz Huff LPN [facility] Internal Medicine Work Phone: 12-01-2012 16:19-0500 Height 165.1 cm Paz Huff LPN [facility] Internal Medicine Work Phone: 12-01-2012 16:19-0500 Pulse (Heart Rate) 82 /min Paz Huff LPN [facility] Internal Medicine Work Phone: Comment on above: Pattern: Regular 12-01-2012 16:19-0500 Pulse Oximetry 98 % Madelin Alberto [facility] Internal Medicine Work Phone: Comment on above: Room air 12-01-2012 16:19-0500 Respiratory Rate 16 /min Paz Huff LPN [facility] Internal Medicine Work Phone: 12-01-2012 16:19-0500 SaO2% [...] Mass Index) 31.14 kg/m2 Bernarda Minaya RN [facility] Internal Medicine Work Phone: 02-01-2012 [...] 02-01-2012 08:34-0400 Pulse (Heart Rate) 76 /min Bernarda Minaya RN [facility] Work Phone: Comment on above: Pattern: Regular 02-01-2012 08:34-0400 Pulse Oximetry 95 % Madelin Miguel [facility] Work Phone: Comment on above: Room air 02-01-2012 08:34-0400 Respiratory Rate 16 /min Bernarda Minaya RN [...] 11-23-2009 11:57-0500 Weight 83.04 kg Madelin Alberto [facility] Internal Medicine Work Phone: 07-11-2009 15:32-0400 BMI [...] 11:53-0400 Head Occipital-frontal circumference 0 cm Kiki Cian [...] BMI (Body Mass Index) 30.79 kg/m2 Kiki Cani RN [facility] Work Phone: 12-31-2007 [...] 11:29-0400 Head Occipital-frontal circumference 0 cm Kiki Cain [...] 08-19-2007 11:34-0500 Weight 82.56 kg Madelin Alberto [facility] Internal Medicine Work Phone: 02-19-2007 14:21-0400 BMI (Body Mass Index) 30.29 kg/m2 Jessie Amaro RN [facility] Internal Medicine Work Phone: 02-19-2007 [...] End: 06-14-2025 Patient encounter procedure Bernarda ESPANA -[facility] Work Phone: Start: 06-14-2025 End: 06-14-[address] Madelin Alberto DO Work Phone: -[facility] Start: 03-22-2025 End: 03-22-[address] Madelin Alberto DO Work Phone: -Cat Scan [facility] Start: 03-22-2025 End: 03-22-[address] Lai Mancia MD -Cat Scan [facility] Work Phone: Start: 03-22-2025 End: 03-22-20[facility] Start: 03-02-2025 End: 03-02-[address] Madelin Alberto DO Work Phone: [facility] Work Phone: Start: 03-02-2025 End: 03-02-[address] Lai Mancia MD -Laboratory Work Phone: Start: 03-02-2025 End: 03-02-2025 ambulatory [facility] Facility:[facility] Start: 02-11-2025 End: 02-11-[address] Jf Perla MD -Medical Out Work Phone: Start: 02-11-2025 End: 02-11-[address] Madelin Alberto DO Work Phone: [facility] Work Phone: Start: 02-08-2025 End: 02-08-2025 Patient encounter procedure Bernarda Akbar VIDEO GAME ANIMATOR-C -[facility] Work Phone: Start: 02-08-2025 End: 02-08-2025 ambulatory Madelin Alberto Facility:[facility] Start: 01-22-2025 End: 01-22-[address] Madelin Alberto DO Work Phone: [facility] Work Phone: Start: 01-22-2025 End: 01-22-[address] Madelin Alberto DO -Laboratory Work Phone: Start: 01-22-2025 End: 01-22-2025 ambulatory Madelin Alberto Facility:[facility] Start: 11-09-2024 End: 11-09-2024 Patient encounter procedure Bernarda ORELLANAC -Laboratory, Specimen Work Phone: Start: 11-09-2024 End: 11-09-2024 Patient encounter procedure Bernarda Akbar NP-C -[facility] Work Phone: Start: 11-09-2024 End: 11-09-2024 ambulatory Madelin Alberto Facility:[facility] Start: 11-09-2024 End: 11-09-2024 ambulatory Madelin Miguel Facility:[facility] Start: 11-05-2024 ambulatory Madelni Alberto Facilit y:[facility] Start: 07-10-2024 End: 07-10-2024 ambulatory Madelin Alberto Facility:[facility] Start: 07-06-2024 End: 07-06-2024 ambulatory Bernarda Akbar Facility:[facility] Start: 11-28-2023 End: 11-28-[address] Madelin Alberto Work Phone: [facility] Work Phone: Start: 11-28-2023 End: 11-28-[address] Madelin Alberto Work Phone: [facility]-Medical Out Work Phone: Start: 11-14-2023 End: 11-14-[address] Madelin Alberto Work Phone: [facility] Work Phone: Start: 10-30-2023 End: 10-30-[address] Madelin Alberto Work Phone: [facility] Work Phone: Start: 10-30-2023 End: 10-30-[address] Madelin Albreto Work Phone: [facility]-Laboratory, Specimen Work Phone: Start: 10-29-2023 End: 10-29-[address] Madelin Alberto Work Phone: [facility] Work Phone: Start: 10-29-2023 End: 10-29-[address] Madelin Alberto Work Phone: [facility]-Laboratory, [facility] Start: 10-22-2023 Non-patient / Non-visit Dr. Madelin Alberto Work Phone: [facility] Start: 10-22-2023 End: 10-22-[address] Madelin Alberto Work Phone: [facility] Work Phone: Start: 10-22-2023 End: 10-22-[address] Madelin Alberto Work Phone: [facility]-Cardiovascular Services Work Phone: Start: 09-19-2023 End: 09-19-[address] Madelin Alberto Work Phone: [facility] Work Phone: Start: 09-19-2023 End: 09-19-[address] Madelin Alberto Work Phone: [facility]-Outpatient Bone Densitometry Work Phone: Start: 08-08-2023 End: 08-08-[address] Madelin Alberto Work Phone: [facility] Work Phone: Start: 07-26-2023 End: 07-26-2023 Patient encounter procedure Dr. Madelin Alberto Work Phone: [facility]-Cat Scan, [facility] Work Phone: Start: 06-07-2023 End: 06-07-[address] Madelin Alberto Work Phone: [facility] Work Phone: Start: 06-07-2023 End: 06-07-[address] Madelin Alberto Work Phone: [facility] Work Phone: Start: 04-12-2023 Madelin Patricia n DO Work Phone: [facility] Start: 04-10-2023 End: 04-11-2023 Patient encounter procedure Sarah Sanchez [facility] Start: 04-03-2023 End: 04-04-2023 Office outpatient visit 5 minutes Madelin Alberto DO Work Phone: [facility] Start: 03-18-2023 End: 03-18-[address] Madelin Alberto Work Phone: [facility] Work Phone: Start: 03-13-2023 Madelin Patricia n DO Work Phone: [facility] Start: 03-13-2023 End: 03-13-2023 Office outpatient visit 15 minutes Madelin Alberto DO Work Phone: [facility] Start: 02-26-2023 Non-patient / Non-visit Dr. Madelin Alberto Work Phone: [facility] Start: 02-25-2023 Non-patient / Non-visit Dr. Madelin Alberto Work Phone: [facility] Start: 02-24-2023 Non-patient / Non-visit Dr. Madelin Alberto Work Phone: [facility] Start: 02-23-2023 Non-patient / Non-visit Dr. Madelin Alberto Work Phone: [facility] Start: 02-23-2023 End: 02-26-2023 Evaluation and management of inpatient Dr. Madelin Alberto Work Phone: [facility]-Medical Surgical 3 Start: 01-23-2023 ambulatory Madelin [...] 06-01-[address] Madelin Alberto Work Phone: [facility] Work Phone: Start: 06-01-2022 End: 06-01-[address] Madelin Alberto Work Phone: [facility]Laboratory Start: 04-26-2022 End: 04-26-[address] Madelin Alberto Work Phone: [facility] Start: 02-22-2022 End: 02-22-[address] Madelin Alberto Work Phone: [facility] Start: 01-10-2022 End: 01-10-2022 Madelin [...] End: 01-13-2020 Lab Order Madelin Alberto [facility] Start: 01-13-2020 End: 01-13-2020 Madelin Miguel DO Work Phone: [facility] Start: 05-06-2019 End: 05-06-2019 Office outpatient visit 25 minutes Madelin Alberto [facility] Start: 02-02-2019 End: 02-02-2019 Phone Encounter Madelin Alberto [facility] Start: 02-02-2019 End: 02-02-2019 Madelin [...] 08-17-2016 End: 08-17-2016 Annotation/Addendum Madelin Miguel [facility] Start: 08-17-2016 End: 08-17-2016 Madelin Alberto DO Work Phone: [facility] Start: 08-17-2016 End: 08-17-2016 Office outpatient visit 15 minutes Madelin Miguel [facility] Start: 09-15-2015 End: 09-15-2015 Office outpatient visit 15 minutes Madelin Miguel [facility] Start: 08-03-2015 End: 08-03-2015 Office outpatient visit 15 minutes Madelin Miguel [facility] Start: 07-01-2015 End: 07-01-2015 Office outpatient visit 25 minutes Madelin Miguel [facility] Start: 02-16-2015 End: 02-16-2015 Office outpatient visit 25 minutes Madelin Alberto [facility] Start: 01-27-2014 End: 01-27-2014 Patient encounter Madelin Alberto [facility] Start: 01-27-2014 End: 01-27-2014 Madelin Alberto DO Work Phone: [facility] Start: 12-01-2012 End: 12-01-2012 Office outpatient visit 15 minutes Madelin Miguel [facility] Start: 08-06-2012 End: 08-06-2012 Patient encounter Madelin Alberto [facility] Start: 08-06-2012 End: 08-06-2012 Madelin Alberto DO Work Phone: [facility] Start: 06-30-2012 End: 06-30-2012 Patient encounter Madelin Alberto [facility] Start: 06-30-2012 End: 06-30-2012 Madelin Alberto DO Work Phone: [facility] Start: 02-01-2012 End: 02-01-2012 Patient encounter Madelin Alberto [facility] Start: 02-01-2012 End: 02-01-2012 Madelin Alberto DO Work Phone: [facility] Start: 08-31-2011 End: 08-31-2011 Annotation/Addendum Madelin Alberto [facility] Start: 08-31-2011 End: 08-31-2011 Madelin Alberto DO Work Phone: [facility] Start: 08-31-2011 End: 08-31-2011 Office outpatient visit 15 minutes Madelin Alberto [facility] Start: 06-14-2010 End: 06-14-2010 Patient encounter Madelin Alberto [facility] Start: 06-14-2010 End: 06-14-2010 Madelin Alberto DO Work Phone: [facility] Start: 11-30-2009 End: 11-30-2009 Patient encounter Madelin Alberto [facility] Start: 11-30-2009 End: 11-30-2009 Madelin Alberto DO Work Phone: [facility] Start: 11-23-2009 End: 11-23-2009 Office outpatient visit 10 minutes Madelin Alberto [facility] Start: 07-11-2009 End: 07-11-2009 Patient encounter Madelin Alberto [facility] Start: 07-11-2009 End: 07-11-2009 Madelin Alberto DO Work Phone: [facility] Start: 06-20-2009 End: 06-20-2009 Historical Summary Madelin Alberto [facility] Start: 06-20-2009 End: 06-20-2009 Madelin Alberto DO Work Phone: [facility] Start: 02-14-2009 End: 02-14-2009 Patient encounter Madelin Alberto [facility] Start: 02-14-2009 End: 02-14-2009 Madelin Alberto DO Work Phone: [facility] Start: 05-27-2008 End: 05-27-2008 Office outpatient visit 25 minutes Madelin Alberto [facility] Start: 05-19-2008 End: 05-19-2008 Office outpatient visit 25 minutes Madelin Alberto [facility] Start: 01-07-2008 End: 01-07-2008 Patient encounter Madelin Alberto [facility] Start: 01-07-2008 End: 01-07-2008 Madelin Alberto DO Work Phone: [facility] Start: 12-31-2007 End: 12-31-2007 Patient encounter Madelin Alberto [facility] Start: 12-31-2007 End: 12-31-2007 Madelin Alberto DO Work Phone: [facility] Start: 12-16-2007 End: 12-16-2007 Office outpatient visit 40 minutes Madelin Gomezon [facility] Start: 08-19-2007 End: 08-19-2007 Office outpatient visit 40 minutes Madelin Alberto [facility] Start: 02-25-2007 End: 02-25-2007 Historical Summary Madelin Alberto [facility] Start: 02-25-2007 End: 02-25-2007 Madelin Alberto DO Work Phone: [facility] Start: 02-19-2007 End: 02-19-2007 Office outpatient new 60 minutes Madelin Alberto [facility] Start: 02-19-2007 End: 02-19-2007 Historical Summary Madelin Alberto [facility] Start: 02-19-2007 End: 02-19-2007 Madelin Alberto DO Work Phone: [facility] End: 09-20-2017 Patient encounter procedure Kiki Cain RN [facility]; [facility] Work Phone: Patient encounter procedure Tracy Walkeryissel [facility]; [facility] Work Phone: Patient encounter procedure Stefaniaevelineshaun Jovanny CAN TENDER [facility]; [facility] Work Phone: Patient encounter procedure Wilfrid Delong LPN [facility]; [facility] Work Phone: Procedures Date Procedure Procedure Detail Performing Clinician Start: 03-22-2025 CT of chest without contrast Dr. Maedlin Alberto DO Work Phone: Start: 01-22-[address] Madelin Alberto DO Work Phone: Comment on above: Test Ordered: [id number] Apolipoprotein BApo lipoprotein B 79 mg/dL Reference Range: <90 Desirable < 90 Borderline High 90 - 99 High 100 - 130 Very High >130 ASCVD RISK THERAPEUTIC TARGET CATEGORY APO B (mg/dL) Very High Risk <80 (if extreme risk <70) High Risk <90 Moderate Risk <90Performed at: [facility] [address] [id number] Director: Severiano Kuo MD, Phone: [phone] at: [facility] [address] [id number] Director: Stu Reyes PhD, Phone: [phone] Start: 01-22-2025 Urine microalbumin/creatinine ratio measurement Dr. Madelin Alberto DO Work Phone: Comment on above: Previous reported result: 850.7 mg/g CRE Edited by: JACKELIN on 03/19/25:0804 AMENDED REPORT 03/19/25 0804 MALB:CREAT previously reported as: 850.7 mg/g CRE Start: 01-22-2025 Vitamin D, 25-hydroxy measurement Dr. Madelin Alberto [...] End: 06-07-2023 Procedure Note: See Note; NOTES: [facility] Imaging Services [address] [place] [address] Chest PA and Lateral MR#: [id number] Acct: [id number] Name: ERIN LAWRENCE Rep #: [id number] : 1955 F 68 From: Sergio jay MD PCP: Dr. Madelin Alberto, DO Status: REG CLI Study: Chest PA and Lateral Date of Exam: 06/07/23 Exam# [id number] Ordering Dr: Lai Mancia MD STUDY: X-RAY [...] Madelin Alberto DO; Dr. Lai Mancia MD Financial Administrative Assistant: Signed Lai Mancia Work Phone: Start: 03-18-2023 End: 03-18-2023 Procedure Note: See Note; NOTES: [facility] [address] [place] [address] OFFICE VISIT Date of Service: 03/18/23 MR#: [id number] Acct: [id number] Name: ERIN LAWRENCE Rep #: [id number] : 1955 Provider: JOVI cueto Age/Sex: 68/F Location: [facility] Status: Signed Intake Vital Signs 09/27/22 14:09 [...] 3 M FU Chief Complaint: f/u diabetes Steward/Stewardess Required: No Accompanied by: Self Is patient in pain?: No Allergies glimepiride [From Amaryl] Allergy (Mild, Verified 03/18/23 13:53) rash lisinopril Allergy (Mild, Verified 03/18/23 13:53) rash losartan Allergy (Mild, Verified 03/18/23 13:53) rash Nurse's Note: Room 3 [facility] Medical History Asthma Benign hypertension Cataracts, bilateral [...] Diabetes mellitus type: type 2 Diabetes mellitus residential insulin use: without extermination inspector use Diabetes mellitus complication status: with hyperglycemia Benign hypertension I10 Cardiac murmur R01.1 Vitamin D deficiency E55.9 Obesity (BMI 30.0-34.9) E66.9 Hypothyroid E03.9 Assessment and Plan Assessment and Plan (1) Diabetes: Status: Chronic Qualifiers: Diabetes mellitus type: type 2 Diabetes mellitus residential insulin use: without residential use Diabetes mellitus complication status: with hyperglycemia [...] End: 02-23-2023 Procedure Note: See Note; NOTES: [facility] Medical Records Department [address] [place] [address] Emergency Department Summary 02/23/23 MR#: [id number] Acct: [id number] Name: ERIN LAWRENCE Rep #: [id number] : 1955 68 From: Brando Weiss MD [...] similar symptoms: No Recent Illness/Hospitalization: No PFSH [facility] Medical History Asthma Benign hypertension Cataracts, bilateral [...] 73.7 H Lymph % (Auto) 10.4 L Motley % (Auto) 12.7 H Eos % (Auto) [...] follows: Interpretation: Sinus Rhythm (Rate is 97. MN interval 180 ms. Cures duration 100 ms. QT duration 306 to 6 ms. [place] is normal. 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 Call [facility] ([phone]) or report to the closest Emergency Room. Call 911 if necessary. 02/23/23 1132 <Electronically signed by Brando Weiss MD> Cosigner Signature (if applicable): CC: Dr. Madelin Alberto, DO Signed Madelin Alberto DO Work Phone: Start: 02-23-2023 Plain chest X-ray Dr. Madelin Alberto Work Phone: Start: 02-23-2023 End: 02-23-2023 Procedure Note: See Note; NOTES: [facility] Imaging Services [address] [place] [address] Chest PA and Lateral MR#: [id number] Acct: [id number] Name: ERIN LAWRENCE Rep #: [id number] : 1955 F 68 From: Lety packer MD PCP: Dr. Madelin Alberto DO Status: REG ER Study: Chest PA and Lateral Date of Exam: 02/23/23 Exam# [id number] Ordering Dr: Brando Weiss MD HISTORY: Hypoxia, [...] 11:41 EDT Reading Location ID and State: [facility] / [place] Tel , Service support , CC: Dr. Madelin Alberto DO; Dr. Brando Weiss MD Financial Administrative Assistant: Geena Alberto DO Work Phone: Start: 09-27-2022 End: 09-27-2022 Procedure Note: See Note; NOTES: [facility] [address] [place] [address] OFFICE VISIT Date of Service: 09/27/22 MR#: [id number] Acct: [id number] Name: ERIN LAWRENCE Rep #: [id number] : 1955 Provider: JOVI cueto Age/Sex: 67/F Location: [facility] Status: Signed Intake Vital Signs 09/27/22 14:09 Height 5 ft 5 in Weight: 183 lb BMI 30.4 BP 142/70 H Blood Pressure Location Rt brachial Position Sitting Respiration 18 Pulse 77 Pulse Source Monitor Temp 97.3 F L Temp Source Temporal Pulse Oximetry (%) 92 Oxygen Delivery Method room air Intake Visit Reasons: 5 m fu Chief Complaint: Diabetes Steward/Stewardess Required: No Accompanied by: None Is patient [...] questions if any more tests need added. [facility] Medical History Asthma Benign hypertension Cataracts, bilateral [...] Diabetes mellitus type: type 2 Diabetes mellitus residential insulin use: without residential use Diabetes mellitus complication status: with hyperglycemia Benign hypertension I10 Vitamin D deficiency E55.9 Cardiac murmur R01.1 Assessment and Plan Assessment and Plan (1) Diabetes: Status: Chronic Qualifiers: Diabetes mellitus type: type 2 Diabetes mellitus residential insulin use: without residential use Diabetes mellitus complication status: with hyperglycemia [...] End: 04-26-2022 Procedure Note: See Note; NOTES: [facility] [address] [place] [address] OFFICE VISIT Date of Service: 04/26/22 MR#: [id number] Acct: [id number] Name: ERIN LAWRENCE Rep #: [id number] : 1955 Provider: JOVI cueto Age/Sex: 67/F Location: [facility] Status: Signed Intake Vital Signs 04/26/22 14:23 Height 5 ft 5 in Weight: 184 lb 2 oz BMI 30.6 BP 150/80 H Blood Pressure Location Lt brachial Position Sitting Respiration 16 Pulse 97 Pulse Source Auscultation Temp 97.3 F L Temp Source Temporal Pulse Oximetry (%) 93 Oxygen Delivery Method room air Intake Visit Reasons: 2 M FU Chief Complaint: Diabetes Steward/Stewardess Required: No Accompanied by: Self Is patient [...] Diabetes mellitus type: type 2 Diabetes mellitus residential insulin use: without residential use Diabetes mellitus complication status: with hyperglycemia Benign hypertension I10 Obesity (BMI 30.0-34.9) E66.9 Cardiac murmur R01.1 Assessment and Plan Assessment and Plan (1) Diabetes: Status: Chronic Qualifiers: Diabetes mellitus type: type 2 Diabetes mellitus residential insulin use: without extermination inspector use Diabetes mellitus complication status: with hyperglycemia [...] End: 02-22-2022 Procedure Note: See Note; NOTES: [facility] [address] [place] [address]. [address] [place] [address] OFFICE VISIT Date of Service: 02/22/22 MR#: [id number] Acct: [id number] Name: ERIN LAWRENCE Rep #: [id number] : 1955 Provider: JOVI cueto Age/Sex: 67/F Location: [facility] Status: Signed Intake Vital Signs 02/22/22 14:21 Height 5 ft 5 in Weight: 181 lb 4 oz BMI 30.1 BP 150/96 H Blood Pressure Location Lt brachial Position Sitting Respiration 18 Pulse 83 Pulse Source Monitor Temp 96.3 F L Temp Source Temporal Pulse Oximetry (%) 92 Oxygen Delivery Method room air Intake Visit Reasons: 1 M FU Chief Complaint: Diabetes Steward/Stewardess Required: No Accompanied by: self Is patient [...] Diabetes mellitus type: type 2 Diabetes mellitus residential insulin use: without extermination inspector use Diabetes mellitus complication status: with hyperglycemia Benign hypertension I10 Obesity (BMI 30.0-34.9) E66.9 Vaginal itching N89.8 Assessment and Plan Assessment and Plan (1) Diabetes: Status: Chronic Qualifiers: Diabetes mellitus type: type 2 Diabetes mellitus residential insulin use: without residential use Diabetes mellitus complication status: with hyperglycemia [...] persists, please follow up with PCP or PAYER SPECIALIST. I have spent [35] minutes today reviewing [...] tabs 1RF Follow Up: 2 Months 02/22/22 7010 <Electronically signed by Bernarda ESPANA> Date Bernarda ESPANA Cosigner Signature: Date (if applicable) CC: Dr. Madelin Alberto, DO Madelin Alberto DO Work Phone: Start: 01-08-2022 End: 01-08-2022 Procedure Note: See Note; NOTES: [facility] [address] [place] [address]. [address] [place] [address] OFFICE VISIT Date of Service: 01/08/22 MR#: [id number] Acct: [id number] Name: ERIN LAWRENCE Rep #: [id number] : 1955 Provider: JOVI cueto Age/Sex: 67/F Location: [facility] Status: Signed Intake Vital Signs 01/08/22 13:57 Height 5 ft 5 in Weight: 182 lb 2 oz BMI 30.3 BP 140/88 H Blood Pressure Location Lt brachial Position Sitting Respiration 18 Pulse 92 Pulse Source Monitor Temp 97.2 F L Temp Source Temporal Pulse Oximetry (%) 94 Oxygen Delivery Method room air Intake Visit Reasons: f/u dm Chief Complaint: Diabetes Steward/Stewardess Required: No Accompanied by: self Is patient in pain?: No Allergies glimepiride [From Amaryl] Allergy (Mild, Verified 01/08/22 14:03) rash lisinopril Allergy (Mild, Verified 01/08/22 14:03) rash losartan Allergy (Mild, Verified 01/08/22 14:03) rash Nurse's Note: Pt had A1C today at PCP 8.0% [facility] Medical History Asthma Benign hypertension Cataracts, bilateral [...] Diabetes mellitus type: type 2 Diabetes mellitus extermination inspector insulin use: without residential use Diabetes mellitus complication status: with hyperglycemia Mixed hyperlipidemia E78.2 Benign hypertension I10 Obesity (BMI 30.0-34.9) E66.9 Assessment and Plan Assessment and Plan (1) Diabetes: Status: Chronic Qualifiers: Diabetes mellitus type: type 2 Diabetes mellitus extermination inspector insulin use: without residential use Diabetes mellitus complication status: with hyperglycemia [...] hyperlipidemia: Status: Chronic Plan - Bernarda Akbar, VIDEO GAME ANIMATOR-C: Chronic- stability unknown. Obtain recent lipid panel from PCP. Continue rosuvastatin 10 mg QHS. (3) Benign hypertension: Status: Acute Plan - Bernarda Akbar, VIDEO GAME ANIMATOR-C: Chronic- not well controlled. Continue amlodipine 5 mg once daily. Will continue to monitor. Consider increase CCB at next appointment if BP continues to be elevated. (4) Obesity (BMI 30.0-34.9): Status: Chronic Plan - Bernarda Akbar, VIDEO GAME ANIMATOR-C: Chronic- not well controlled. Nutritional counseling provided, [...] Endocrinology Visit Report Comments: See Note; NOTES: [facility] [address] [place] [address] OFFICE VISIT Date of Service: 06/27/21 MR#: [id number] Acct: [id number] Name: ERIN LAWRENCE Rep #: [id number] : 1955 Provider: Kaia Millan Age/Sex: 66/F Location: [facility] Status: Signed Intake Vital Signs 06/27/21 14:50 Height 5 ft 5 in Weight: 175 lb 6 oz BMI 29.2 BP 120/80 Blood Pressure Location Lt brachial Position Sitting Respiration 16 Pulse 84 Pulse Source Monitor Temp 97.0 F L Temp Source Temporal Pulse Oximetry (%) 95 Oxygen Delivery Method room air Intake Visit Reasons: EST CARE Chief Complaint: Diabetes Steward/Stewardess Required: No Accompanied by: self Is patient [...] DAILY #30 tab 06/27/21 [Rx Confirmed 06/27/21] [facility] (Updated 06/27/21 @ 17:59 by [...] Diabetes mellitus type: type 2 Diabetes mellitus extermination inspector insulin use: without residential use Diabetes mellitus complication status: with hyperglycemia Benign hypertension I10 Mixed hyperlipidemia E78.2 Overweight (BMI 25.0-29.9) E66.3 Assessment and Plan Assessment and Plan (1) Diabetes: Status: Acute Qualifiers: Diabetes mellitus type: type 2 Diabetes mellitus extermination inspector insulin use: without residential use Diabetes mellitus complication status: with hyperglycemia [...] Emergency Department Summary Comments: See Note; NOTES: [facility] Medical Records Department [address] [place] [address] Emergency Department Summary 03/02/21 MR#: [id number] Acct: [id number] Name: ERIN LAWRENCE Rep #: [id number] : 1955 66 From: Live Shannon MD [...] not take any antiplatelet or anticoagulant medications. [facility] Medical History Asthma Cataracts, bilateral Diabetes High [...] no sensory deficits noted Neuro Narrative: Normal yvnqvz-qn-rswp and fuyt-ak-ihuy bilaterally. NIHSS 0. Sensorium / Orientation: awake [...] % (Auto) 65.3 Lymph % (Auto) 24.3 Motley % (Auto) 8.1 Eos % (Auto) 1.7 [...] your Primary Care Provider. Call [facility] ([phone]) or report to the closest Emergency Room. Call 911 if necessary. 03/02/212040 <Electronically signed by Live Shannon MD> Cosigner Signature (if applicable): CC: Dr. Madelin Alberto DO Signed Madelin Alberto DO Work Phone: Start: 03-02-2021 End: 03-02-2021 Brain/Head without Contrast Comments: See Note; NOTES: [facility] Imaging Services [address] [place] [address] Brain/Head without Contrast MR#: [id number] Acct: [id number] Name: ERIN LAWRENCE Rep #: [id number] : 1955 F 66 From: Jose Luis Harris MD PCP: Dr. Madelin Alberto DO Status: REG ER Study: Brain/Head without Contrast Date of Exam: 12/18 Exam# [id number] Ordering Dr: Live Shannon MD HISTORY: HTN, [...] Live Shannon MD; Dr. Madelin Alberto DO Financial Administrative Assistant: Signed Madelin Alberto DO Work Phone: H/O: section Section As hley Cross VIDEO GAME ANIMATOR Comment on above: 1994 H/O: section Section As [place] VIDEO GAME ANIMATOR Comment on above: 1994 H/O: section Section Jersey Kapadia [facility] Comment on above: 1994 [facility] Sara Petty [facility] H/O: section Wilfrid Baljeet VIDEO GAME ANIMATOR H/O: section Graciela Sanchez [facility] History of appendectomy Appendectomy Ashl ey Cross VIDEO GAME ANIMATOR Comment on above: 1996 or 1997 History of appendectomy Appendectomy Ashl ey Cross VIDEO GAME ANIMATOR Comment on above: 1996 or 1997 History of appendectomy Appendectomy Jasm in [place] [facility] Comment on above: 1996 or 1997 History of appendectomy Jasm in [place] CAN TENDER History of appendectomy Katie Ron [facility] History of appendectomy Dako ta Baljeet VIDEO GAME ANIMATOR History of appendectomy Rebecca sea [place] [facility] [facility]ER [facility] HospitalJovanny CAN TENDER Wilfrid Powhatan LP N Sarah Normank [facility] Plan of Treatment Date Care Activity Detail Author Start: 02-11-2025 Iv infusion therapy/prophylaxis /dx 1st to 1 hr THER/PROPH/DIAG IV INF INIT [facility] Start: 01-22-2025 Procedure [facility] Start: 04-10-2023 Procedure Education [facility] Work Phone: Start: 04-10-2023 Provider Instructions for Treatment [facility] Work Phone: Start: 03-13-2023 Procedure Education [facility]; [facility] Work Phone: Start: 03-13-2023 Provider Instructions for Treatment [facility] Work Phone: Start: 03-01-2023 Blood chemistry [facility] Start: 02-28-2023 Blood chemistry [facility] Start: 02-27-2023 Blood chemistry [facility] Start: 02-27-2023 [facility] Start: 02-26-2023 Patient discharge [facility] Start: 02-26-2023 [facility] Start: 02-24-2023 Referral to service [facility] Start: 02-23-2023 Following clinical pathway protocol [facility] Start: 02-23-2023 Ambulation without limitation [facility] Start: 02-23-2023 Assessment of risk of venous thromboembolism [facility] Start: 02-23-2023 Care regimes management [facility] Start: 02-23-2023 Catheterization of vein [facility] Start: 02-23-2023 Inhalation therapy procedure [facility] Start: 02-23-2023 Insertion of catheter into peripheral vein [facility] Start: 02-23-2023 Oxygen therapy [facility] Start: 02-23-2023 Providing care according to standard [facility] Start: 02-23-2023 End: 02-23-2023 [facility] Start: 02-23-2023 Admission procedure [facility] Start: 01-23-2023 25 hydroxy includes fractions [...] 25 hydroxy includes fractions if performed CALCIFEDIOL (80325) [facility] Work Phone: Start: 04-28-2020 TSH Qn TSH (THYROID STIMULATING HORMONE) (86255) [facility] Work Phone: Start: 04-28-2020 Urine albumin quantitative MICROALBUMIN: CREATININE RATIO (88892) AND (18709) [facility] Work Phone: Start: 04-28-2020 Comprehensive metabolic panel METABOLIC PANEL, COMPREHENSIVE (53737) [facility] Work Phone: Start: 04-28-2020 Lipoprotein blood oleksandr numbers & subclasses NMR Profile (14641) [facility] Work Phone: Start: 04-28-2020 Blood count complete auto&auto difrntl wbc CBC with auto diff (91949) [facility] Work Phone: Start: 02-12-2020 [...] 25 hydroxy includes fractions if performed CALCIFIDIOL (37232) VIT D 25 [facility] Work Phone: Start: 05-06-2019 Assay of thyroid stimulating hormone tsh TSH (05302) [facility]; [facility] Work Phone: Start: 05-06-2019 TSH Qn TSH (24055) [facility] Work Phone: Start: 05-06-2019 Urnls dip stick/tablet reagent auto microscopy [facility] Work Phone: Start: 05-06-2019 Urine albumin quantitative [facility] Work Phone: Start: 05-06-2019 Comprehensive metabolic panel METABOLIC PANEL, COMPREHENSIVE (50904) [facility] Work Phone: Start: 05-06-2019 Lipoprotein blood oleksandr numbers & subclasses NMR Profile (14035) [facility] Work Phone: Start: 05-06-2019 [...] 25 hydroxy includes fractions if performed CALCIFIDIOL (02225) VIT D 25 [facility] Work Phone: Start: 07-02-2018 Thyrotropin Qn TSH (45795) [facility] Work Phone: Start: 07-02-2018 Urnls dip stick/tablet reagent auto microscopy [facility] Work Phone: Start: 07-02-2018 Urine albumin quantitative [facility] Work Phone: Start: 07-02-2018 Comprehensive metabolic panel METABOLIC PANEL, COMPREHENSIVE (26733) [facility] Work Phone: Start: 07-02-2018 Lipid panel LIPID PANEL (21925) [facility] Work Phone: Start: 07-02-2018 Blood count complete auto&auto difrntl wbc CBC W/AUTO DIFF WBC (53300) [facility] Work Phone: Start: 07-02-2018 [...] Work Phone: Start: 03-05-2018 Thyrotropin Qn TSH (75299) [facility] Work Phone: Start: 03-05-2018 Assay of free thyroxine [facility]; [facility] Work Phone: Start: 03-05-2018 T4 free mass conc T4, FREE (THYROXINE) (97326) [facility] Work Phone: Start: 03-05-2018 Assay of triiodothyronine t3 free [facility]; [facility] Work Phone: Start: 03-05-2018 T3 free mass conc T3, FREE (TRIDOTHYRONINE) (22609) [facility] Work Phone: Start: 03-05-2018 [...] Work Phone: Start: 04-22-2017 Thyrotropin Qn TSH (48856) [facility] Work Phone: Start: 04-22-2017 [...] Work Phone: Start: 02-16-2015 Thyrotropin Qn TSH (31269) [facility] Work Phone: Start: 02-16-2015 [...] Start: 06-14-2010 Glucose [Mass/Vol] Glucose, PP/2 Hour (21754) [facility] Work Phone: Start: 06-14-2010 Glucose quantitative blood xcpt reagent strip [facility] Work Phone: Start: 06-14-2010 Assay of thyroid stimulating hormone tsh [facility]; [facility] Work Phone: Start: 06-14-2010 Thyrotropin Qn TSH (71997) [facility] Work Phone: Start: 06-14-2010 [...] Start: 11-30-2009 Calcium mass conc CALCIUM SERUM (01476) [facility] Work Phone: Start: 11-30-2009 [...] 07-11-2009 Thyrotropin Qn TSH (THYROID STIMULATING HORMONE) (47712) [facility] Work Phone: Start: 07-11-2009 Lipid panel [facility] Work Phone: Start: 07-11-2009 Provider Instructions for Treatment [facility] Work Phone: Start: 02-14-2009 Glucose [Mass/Vol] Glucose, PP/2 Hour (25366) [facility] Work Phone: Start: 02-14-2009 Glucose quantitative blood xcpt reagent strip [facility] Work Phone: Start: 02-14-2009 Assay of thyroid stimulating hormone tsh [facility]; [facility] Work Phone: Start: 02-14-2009 Thyrotropin Qn TSH (69074) [facility] Work Phone: Start: 02-14-2009 Lipid panel [facility] Work Phone: Start: 05-27-2008 Sedimentation rate rbc non-automated [facility] Work Phone: Start: 05-27-2008 C-reactive protein [facility]; [facility] Work Phone: Start: 05-27-2008 CRP mass conc C-REACTIVE PROTEIN (03544) [facility] Work Phone: Start: 05-27-2008 Antinuclear antibodies yolis [facility]; [facility] Work Phone: Start: 05-27-2008 Nuclear Ab IF titer (S) YOLIS (ANTINUCLEAR ANTIBODY) (69935) [facility] Work Phone: Start: 05-27-2008 [...] Start: 12-16-2007 Glucose [Mass/Vol] Glucose, PP/2 Hour (72952) [facility] Work Phone: Start: 12-16-2007 Glucose quantitative blood xcpt reagent strip [facility] Work Phone: Start: 12-16-2007 Hepatic function panel [facility] Work Phone: Start: 12-16-2007 Lipid panel [facility] Work Phone: Start: 12-16-2007 Assay of thyroid stimulating hormone tsh [facility]; [facility] Work Phone: Start: 12-16-2007 Thyrotropin Qn TSH (33599) [facility] Work Phone: Start: 08-19-2007 Patient Education [facility] Work Phone: Start: 08-19-2007 Provider Instructions for Treatment [facility] Work Phone: Start: 08-19-2007 Cul bact xcpt urine blood/stool aerobic isol [facility] Work Phone: Comment on above: done km Start: 02-19-2007 Lipid panel [facility] Work Phone: Start: 02-19-2007 Glucose [Mass/Vol] Glucose, PP/2 Hour (96797) [facility] Work Phone: Start: 02-19-2007 Glucose quantitative blood xcpt reagent strip [facility] Work Phone: Start: 02-19-2007 Provider Instructions for Treatment [facility] Work Phone: Bacteria identified in Sputum by Respiratory culture [facility] Hemoglobin A1c/Hemoglobin.total in Blood [facility] Patient referral [facility] Work Phone: [facility] Work [...] Internal Medicine; [facility] Work Phone: [facility]; [facility] Work Phone: [facility]; [facility] Work Phone: [facility]; [facility] Work Phone: Payers Date Payer Category Payer Self-pay [id number] 2024 Medicare [id number] 2020 Medicare [id number] 2020 Private Health Insurance [facility] [id number] 1955 Unknown [id number] 2.16.84 [id number] Unknown Unknown [id number] Unknown [id number] Unknown [id number] 2.16.8 [id number] Unknown [id number] 2.16.8 [id number] Unknown [id number] 2.16.8 [id number] Unknown [id number] 2.16.8 [id number] Unknown [id number] 2.16.8 [id number] Unknown [id number] 2.16.8 [id number] Unknown [id number] 2.16.8 [id number] Unknown [id number] 2.16.8 [id number] Unknown [id number] 2.16.8 [id number] Unknown [id number] 2.16.8 [id number] Unknown [id number] 2.16.8 [id number] Social History Date Type Detail Facility Alcohol Use Former smoker [facility] Work Phone: Comment on above: Occasional alcohol u se 2-3 glasses 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 [facility] Work Phone: Tobacco use: Tobacco use: [facility] Work Phone: Start: 04-26-2022 End: 11-14-2023 Tobacco smoking status NHIS Unknown if ever smoked [facility] Start: 1955 Sex Assigned At Female W [facility] Start: 11-14-2023 Tobacco smoking stat us NHIS Never smoked tobacco (finding) [facility] Start: 01-26-2025 Sex Female (finding) [facility] Medical Equipment Procedure Code Equipment Code Equipment Origin al Text Equipment Identifier Dates Pen Jarrell 32G X 6 MM Miscellaneous 1 (one) needle weekly as directed for 0 days Quantity: 30 {QS} Refills: 3 Ordered: 20-Mar-2021 Slarb VIDEO GAME ANIMATOR, Krissy Start : 20-Mar-2021 Active Start: 03-20-2021 Pen Jarrell 32G X 6 MM Miscellaneous 1 (one) needle weekly as directed for 0 days Quantity: 30 {QS} Refills: 3 Ordered: 20-Mar-2021 Slarb VIDEO GAME ANIMATOR, Krissy Start : 20-Mar-2021 Active Start: 03-20-2021 Pen Jarrell 32G X 6 MM Miscellaneous 1 (one) needle weekly as directed for 0 days Quantity: 30 {QS} Refills: 3 Ordered: 20-Mar-2021 Slarb VIDEO GAME ANIMATOR, Krissy Start : 20-Mar-2021 Active Start: 03-20-2021 Pen Jarrell 32G X 6 MM Miscellaneous 1 (one) needle weekly as directed for 0 days Quantity: 30 {QS} Refills: 3 Ordered: 20-Mar-2021 Gravius CAN TENDER, Tracy Start : 20-Mar-2021 Active Start: 03-20-2021 Pen Jarrell 32G X 6 MM Miscellaneous 1 (one) needle weekly as directed for 0 days Quantity: 30 {QS} Refills: 3 Ordered: 20-Mar-2021 Gravius CAN TENDER, Tracy Start : 20-Mar-2021 Active Start: 03-20-2021 [...] Facility 02-26-2023 Functional status Ambulates;Bath room Privilege [facility] Work Phone: 03-06-2021 LP-IR Score 89 [...] component of a physician's clinical assessment. Test(s) 610640-SPE-I ; 515574-ZEW-N; 952790-Zjoyujqpsqpqo; 736874-Zxwqsvdcjtw, Total; 075142-FZH-S (Total); 823763-Wcftt LDL-P; 379415-HYF Size; 834568-PV-YN Scorewas developed and its performance characteristics determinedby [facility]. It has not been cleared or approved by the Foodand Drug Administration.PATIENT WAS FASTINGPERFORMED BY: BN [facility] [address] [id number] BY: [facility] [id number] [facility] [id number] Information: QUINTON MCCORMICK [id number] 08-16-2020 LP-IR Score 75 [facility] [...] component of a physician's clinical assessment. Test(s) 638807-LDW-O ; 101119-DQM-C; 275040-Ckzekuxpjmnkk; 186579-Uglgqdnfwbr, Total; 629986-BKM-S (Total); 312757-Byfag LDL-P; 385408-MKQ Size; 719197-BI-ZH Scorewas developed and its performance characteristics determinedby [facility]. It has not been cleared or approved by the Foodand Drug Administration.PATIENT WAS FASTINGPERFORMED BY: BN [facility] [id number] BY: CB [facility] CenterJvbgut1685 [facility] [id number] Mental Status Date Assessment Result Facility 11-28-2023 Cognitive function Voice/Name [facility] Work Phone: 02-26-2023 Cognitive function Voice/Name [facility] Work Phone: Clinical Notes 03-02-2021 to 03-22-2025 Note Date & Type Note Facility 03-22-2025 Radiology Diagnostic study note [facility] Imaging Services [address], [place] [id number] Chest without Contrast MR#: [id number] Acct: [id number] Name: ERIN LAWRENCE Rep #: [id number] : 1955 F 70 From: Jack Panchal MD PCP: Dr. Madelin Alberto, DO Status: RE G CLI Study:Chest without Contrast Date of Exam: 03/22/25 Exam# [id number] Ordering Dr: Lai Mancia MD PROCEDURE: CHEST [...] of the right middle lobe. Reading Location: [id number] CC: Dr. Madelin Alberto DO; Dr. Lai Mancia MD ~ Financial Administrative Assistant: Signed [facility] 02-08-2025 Evaluation note Diagnosis Onset Date Resolution Benign hypertension chronic January 282024 9:41am Diabetes chronic February 08, 2025 9:41am Hypothyroid chronic February 08 9:41am Mixed hyperlipidemia chronic February 08, 2025 9:41am Osteoporosis chronic February 08 9:41am Overweight (BMI 25.0-29.9) chronic February 08, 2025 9:41am Vitamin D deficiency chronic February 08, 2025 9:41am [facility] Work Phone: 1(316) 521-343902-10-2025 Evaluation note* Diagnosis Onset Date Resolution Status Admit Date Benign hypertension chronic Febru 2024 9:20am Diabetes chronic November 09, 2024 9:20am High cholesterol chronic November 09, 2024 9:20am Hypothyroid chronic October 9:20am Obesity (BMI 30.0-34.9) chronic F ebru2024 9:20am Osteoporosis chronic October 9:20am [facility] Work Phone: 1(452) 112-465802-10-2025 Evaluation note* Diagnosis Onset Date Resolution Status [...] D deficiency chronic February 08, 2025 9:41am [facility] Work Phone: 1(602) 781-174705-30-[address] Benitez [facility] February 26, 2023 1:39pm Note Date/Time February 26, 2023 1:35p m [facility] Medical Records Department [address] [place] [address] Discharge Summary 02/26/23 1333 MR#: [id number] Acct: [id number] Name: ERIN LAWRENCE Rep #:[id number] : 1955 68 From: Simone Benitez MD PCP: Dr. Madelin Alberto DO Status:[facility] [place] Location: [address] Providers Date of Admission: 02/23/23 Date [...] Self Care Charges/Coding Visit Charges Inpatient E&M: 56326 Disch Hosp >30min 02/26/23 1339 <Electronically signed by Simone Benitez MD> Cosigner Signature (if applicable): CC: Dr. Simone Benitez MD; Dr. Madelin Alberto, DO~ Signed [facility] Work Phone: 1(231) 633-332805-30-[address] Benitez [facility] February 26, 2023 8:44am Note Date/Time February 26, 2023 7:27a m [facility] Medical Records Department [address] [place] [address] Progress Note - Hospitalist 02/26/23 0718 MR#: [id number] Acct: [id number] Name: ERIN LAWRENCE Rep #:[id number] : 1955 68 From: Simone Benitez MD PCP: Dr. Madelin Alberto DO Status:AD M IN Location: [place] [address] Reason for Visit Reason for Visit: Diagnoses [...] 35 Minutes Charges/Coding Visit Charges Inpatient E&M: 28520 Subs Hosp L2 02/26/23 0844 <Electronically signed by Simone Benitez MD> Cosigner Signature (if applicable): CC: ~ Signed [facility] Work Phone: 1(158) 733-727105-29-[address] Rosario [facility] February 25, 2023 10:03am Note Date/Time February 25, 2023 10:03 am [facility] Medical Records Department [address] [place] [address] Progress Note - Hospitalist 02/25/23 0957 MR#: [id number] Acct: [id number] Name: ERIN LAWRENCE Rep #:[id number] : 1955 68 From: Misha Rosario DO PCP: Dr. Madelin Alberto, DO Status:AD M [place] [facility] [place] Reason for Visit Reason for Visit: Diagnoses [...] 36 minutes Charges/Coding Visit Charges Inpatient E&M: 05641 Subs Hosp L2 02/25/23 1003 <Electronically signed by Misha Rosario DO> Cosigner Signature (if applicable): CC: ~ Signed [facility] Work Phone: 1(176) 465-318805-28-[address] Rosario [facility] February 24, 2023 9:58am Note Date/Time February 24, 2023 9:58a m [facility] Medical Records Department [address] [place] [address] Progress Note - Hospitalist 02/24/23 0955 MR#: [id number] Acct: [id number] Name: ERIN LAWRENCE Rep #:[id number] : 1955 68 From: Misha Rosario DO PCP: Dr. Madelin Alberto, DO Status:AD M [place] [facility] [id number] Reason for Visit Reason for Visit: Diagnoses [...] 73.7 H, Lymph % (Auto) 10.4 L, Motley % (Auto) 12.7 H, Eos % (Auto) [...] 71.0 H, Lymph % (Auto) 13.6 L, Motley % (Auto) 10.9 H, Eos % (Auto) [...] 35 minutes Charges/Coding Visit Charges Inpatient E&M: 09831 Subs Hosp L2 02/24/23 0958 <Electronically signed by Misha Rosario DO> Cosigner Signature (if applicable): CC: ~ Signed [facility] Work Phone: 1(202) 261-816705-27-2023 History and physical note Author Dr. Rosario [facility] February 23, 2023 5:44pm Note Date/Time February 23, 2023 5:42p m [facility] Medical Records Department [address] [place] [address] H&P Exam - Hospitalist 02/23/23 1735 MR#: [id number] Acct: [id number] Name: ERIN LAWRENCE Rep #:[id number] : 1955 68 From: Misha Rosario DO PCP: Dr. Madelin Alberto, DO Status:AD M [place] [facility] [place]855-4 HPI - General General Date of Admission: 02/23/23 Date of Service: 02/23/23 Chief Complaint: This of breath, productive cough HPI Narrative ERIN LAWRENCE, is a 68 F who presents to the emergency room at [facility] with complaint of cough and shortness [...] above 90%. Patient will be admitted to [place] [address] for community-acquired pneumonia of the right middle and lower lobe along with hypoxia, she will be treated with IV Zithromax and Rocephin, she willbe given aerosol treatments, labs will be monitored. [facility] Medical History Asthma Benign hypertension Cataracts, bilateral [...] 73.7 H, Lymph % (Auto) 10.4 L, Motley % (Auto) 12.7 H, Eos % (Auto) [...] 11:41 EDT Reading Location ID and State: [facility] / [place] Tel , Service support , Assessment & Plan Assessment/Plan (1) Right lower lobe pneumonia: PLAN: Plan 1. Right middle and lower lobe community-acquired pneumonia-patient will be admitted to [facility] 3, she will remain on IV [...] 55 minutes Charges/Coding Visit Charges Inpatient E&M: 91985 Init Hosp L2 02/23/23 1744 <Electronically signed by Misha Rosario DO> Cosigner Signature (if applicable): CC: Dr. Madelin Alberto DO; Dr. Misha Rosario DO~ Signed [facility] Work Phone: 1(469) 150-220105-27-[address] Weiss [facility] February 23, 2023 11:32am Note Date/Time February 23, 2023 10:26 am [facility] Medical Records Department [address] [place] [address] Emergency Department Summary 02/23/23 MR#: [id number] Acct: [id number] Name: ERIN LAWRENCE Rep #:[id number] : 1955 68 From: Brando Weiss MD [...] Prior similar symptoms: No Recent Illness/Hospitalization: [facility] Medical History Asthma Benign hypertension Cataracts, bilateral [...] 73.7 H Lymph % (Auto) 10.4 L Motley % (Auto) 12.7 H Eos % (Auto) [...] follows: Interpretation: Sinus Rhythm (Rate is 97. MN interval 180 ms. Cures duration 100 ms. QT duration 306 to 6 ms. [place] is normal. There is artifact which the [...] Acute bronchospasm Disposition Disposition: Acute Care Hospital [facility] What to do if you have Problems For any increased pain, shortness of breath, bleeding, nausea or vomiting, chestpain, or any unexpected problems, contact your Primary Care Provider. Call [facility] ([phone]) or report to the closest Emergency Room. Call 911 if necessary. 02/23/23 1132 <Electronically signed by Brando Weiss MD> Cosigner Signature (if applicable): CC: Dr. Madelin Alberto DO ~ Signed [facility] Work Phone: 1([phone]) 942-322906-03-2021 NoteHNO ID: [id number] Author: Norman Perla APRN.[employer]AV[employer]QUIPMENT REPAIRER Service: ? Author Type: Nurse Practitioner Type: [...] to ER. Family will drive pov to [facility] ER Patient declines squad. Norman Perla APRN.CNPMer[facility] Hospital[facility] note* Diagnosis Onset Date Resolution Status Benign hypertension chronic Diabetes chronic Obesity (BMI 30.0-34.9) scorer single [place] Vaginal itching chronic Cardiac murmur acute Benign hypertension chronic Diabetes chronic Obesity (BMI 30.0-34.9) scorer single [facility] Work Phone: Evaluation note* Diagnosis Onset Date Resolution Status Acute bronchospasm acute Acute respiratory failure with hypoxia acute High cholesterol acute Right lower lobe pneumonia a cute Benign hypertension chronic Obesity (BMI 30.0-34.9) scorer single [place] [facility] Work Phone: Evaluation note* Diagnosis Onset Date Resolution Status High cholesterol acute Benign hypertension chronic Obesity (BMI 30.0-34.9) [facility] [place] Acute bronchospasm resolved Acute respiratory failure with hypoxia resolved Right lower lobe pneumonia r esolved Benign hypertension chronic Cardiac murmur chronic Diabetes chronic Hypothyroid chronic Obesity (BMI 30.0-34.9) [facility] Vitamin D deficiency [facility] Work Phone: Evaluation note* Diagnosis Onset Date Resolution Status Benign hypertension chronic Cardiac murmur chronic Diabetes chronic Obesity (BMI 30.0-34.9) [facility] Work Phone: evaluation note* Diagnosis Onset Date Resolution Status Benign hypertension chronic Cardiac murmur chronic Diabetes chronic Obesity (BMI 30.0-34.9) [facility] [facility] Benign hypertension chronic Diabetes chronic Obesity (BMI 30.0-34.9) [facility] Osteoporosis chronic [facility] Work Phone: Evaluation noteNo assessment information available [facility] Work Phone: Instructions* Name Dates Details How [...] Informa tion Online using Patient Portal and [employer] Indication:Nonsmoker Start:20-Mar-2021 Instruction Type:Patient [...] Informa tion Online using Patient Portal and [employer] Indication:Nonsmoker Start:13-Mar-2023 Instruction Type:Patient [...] Informa tion Online using Patient Portal and [employer] Indication:Nonsmoker Start:13-Mar-2023 Instruction Type:Patient [...] Informa tion Online using Patient Portal and [employer] Indication:Nonsmoker Start:13-Mar-2023 Instruction Type:Patient [...] for referral (narrative)No reason for referral information [facility] Work Phone: Instructions Name Dates Details [...] March 02, 2021 7 :19pm Power of Assembling Machine Operator No March 02, 2021 7:19pm Advance Directive Response Recorded Date/ Time Living Will No February 23, 2023 1 2:58pm Power of Assembling Machine Operator No February 23, 2023 12:58pm Advance Directive Response Recorded Date/ Time Living Will No February 23, 2023 1 1:58am Power of Assembling Machine Operator No February 23, 2023 11:58am Chief Complaint [...] section and content) DATE CREATED AUTHOR 11/01/[address] [facility] DATE CREATED AUTHOR AUTHOR'S ORGANIZ ATION 01/25/2023 [facility] DATE CREATED AUTHOR AUTHOR'S ORGANIZ ATION 06/14/2025 [facility] Goals (unrecognized section and content) Goals may [...] DO Primary Care Provider Active Bernarda Akbar VIDEO GAME ANIMATOR-C Attending Provider, Referring Pr ovider Active Team [...] 2024 End: November 09, 2024 Bernarda Akbar VIDEO GAME ANIMATOR-C Attending Provider Active Start: November 09, 2024 [...] BE BASED ON THE PRIMARY CLINICAL RECORDS. [facility] [employer] [facility]. provides no warranty or guarantee of the accuracy or completeness of information in this document.
--- NOTE | 2025-09-02 21:15 | CASEMGMT ---
Care Management Face to Face with patient for initial transition planning/care coordination assessment in the ED.? This job specification writer introduced self and role at [facility]. Patient alert and oriented. Patient willing to participate in assessment and is able to answer all questions appropriately.? Care providers, pharmacy, and demographics verified. Admitting Diagnosis: Acute hypoxemic respiratory failure Other diagnosis history: ?diabetes, asthma, hypercholesteremia, hypertension PCP: ?Miguel Specialists: ?King Mancia Preferred Pharmacy: [facility] Insurance: Medicare Prescription Benefit: ?yes Living Will/HPOA: ?has completed, asked to bring copy for medical record LNOK: ?son Living Arrangements: ?patient lives with son in a 2 story house.? Reports she typically is independent with ADLs and IADLs but over the last week has had to have son help with daily care as she has been to weak to take care of herself. Transportation: patient normally drives DME: ?blood pressure cuff, cane HHC: none SNF/Rehab: none Community Resources: ?none Behavioral Health History: ?patient reports to anxiety and depression, states she is on medication Patient goals: Discharge plans uncertain at this time. Disposition Plan: admission to acute; RN CM/SW to follow for discharge planning needs that may arise. Candie Whittaker, PMO MANAGER, RACKING TECHNICIAN
--- NOTE | 2025-09-02 22:16 | HP.PCM.HOS_ITS ---
HPI - General General Date of Admission: 09/02/25 Date of Service: 09/02/25 Chief Complaint: Extreme tiredness since past Saturday HPI Narrative ERIN LAWRENCE, is a 70 F who presents to ED with extreme fatigue/tiredness started Saturday about 4 days ago. Then cough started which is predominantly dry on Saturday. She also has history of pneumonia last year and then started seeing editorial director Dr. Sousa and diagnosed asthma. Patient on Dupixent and Singulair and bronchodilator at home. No history of smoking. Denies chronic heart disease. Denies fever or chills. In ED, shows high BP with Tmax 99.2 Fahrenheit. On 3 L of oxygen. Chest x-ray suggestive of pneumonia and patient admitted for the same after giving IV antibiotics Rocephin and Zithromax. [facility] Medical History Obesity (BMI 30.0-34.9) Overweight (BMI 25.0-29.9) Mixed hyperlipidemia Benign hypertension Vitamin deficiency High triglycerides High cholesterol Diabetes Cataracts, bilateral Asthma Home Medications ?Medication ?Instructions ?Recorded ?Last Taken ?Type cholecalciferol (vitamin D3) 125 125 mcg PO DAILY Chec k with 02/14/21 09/01/25 History mcg (5,000 unit) capsule primary doctor levothyroxine 50 mcg capsule 50 mcg PO DAILY Check wit h primary 02/14/21 09/02/25 History doctor rosuvastatin 10 mg tablet 10 mg PO QHS Check with prim nino 02/14/21 09/01/25 History doctor amlodipine 10 mg tablet 10 mg PO DAILY Check with pr imary 02/23/23 09/01/25 History doctor fluticasone 232mcg-salmeterol 1 inh inhalation BID ast hma 08/08/23 09/02/25 History 14mcg/actuation breath act,powder sensor 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 sensor (FreeStyle #2 ea 03/12/24 Unknown Rx Angeline 3 Sensor device) 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,lineman apprentice,cont #1 ea 03/12/24 Unknown Rx (FreeStyle Angeline 3 [place]) semaglutide 2 mg/dose (8 mg/3 mL) 2 mg (0.75 mL) subcu t QWEEK DM #3 07/06/24 08/26/25 Rx subcutaneous pen injector (Ozempic) mL metformin 500 mg tablet 1,000 mg (2 x 500 mg) PO BID DM 12/09/24 08/31/25 Rx #360 tabs pen needle, diabetic 32 gauge x #100 ea 05/21/25 Unkno wn Rx dupilumab 100 mg/0.67 mL 200 mg subcut Q2W 06/14/25 1 11/02/24 History subcutaneous syringe (Dupixent) venlafaxine 75 mg tablet 75 mg PO DAILY Check with pr imary 08/19/25 09/01/25 Rx doctor #30 tabs insulin human U-100 NPH-regulr 20 unit subcut .am DM 1 11/03/24 09/02/25 History 70-30 mix 100 unit/mL subcutaneous susp (Novolin 70/30 U-100 Insulin) insulin syringe-needle U-100 0.3 09/02/25 Unknown His tory mL 31 gauge x 02/12 Allergy/AdvReac Type Severity Reaction Status Date / Time glimepiride (From Amaryl) Allergy Mild rash Verified 09/02/25 18:25 lisinopril Allergy Mild rash Verified 09/02/25 18:25 losartan Allergy Mild rash Verified 09/02/25 18:25 Family History Sister Arthritis Colon cancer, Onset Age: 54 Mother Colon cancer, Onset Age: 71 Diabetes Myocardial infarction, Onset Age: 71 Aunt Uterine cancer Surgical History Hx of appendectomy Social History household members: none Smoking Status: Never smoker alcohol intake: never substance use type: does not use ROS ROS Narrative Constitutional: Reports extreme fatigue and weakness with no energy. No fever. HEENT: Reports systems reviewed and no addt'l complaints, except as documented Respiratory/Chest: Mild shortness of breath at rest with worse on exertion. Cough CVS: No chest pain. Denies cardiac disease Gastrointestinal: Denies coffee ground emesis, hematemesis or vomiting Genitourinary: Denies burning urination or new urinary tract symptoms Musculoskeletal: Denies acute joint pain or limited range of motion. No acute injury Neurologic: Denies seizure-like symptoms. skin: No ulcer. No rash Endocrinology: Reports systems reviewed and no addt'l complaints, except as documented Hematologic/Lymphatic: Reports systems reviewed and no addt'l complaints, except as documented Rest 14 ROS are negative except as mentioned in HPI Vital Signs Vital Signs Vital Signs: 09/02/25 18:24 09/02/25 18:32 09/02/25 19:02 Temperature 97.2 F L Temperature Source Temporal Pulse Rate 107 H Respiratory Rate 24 H Respiratory Effort Normal Respiratory Pattern Normal Blood Pressure 177/76 H Blood Pressure Mean 109 Pulse Ox 92 Oxygen Delivery Method Room Air Room Air Oxygen Flow Rate (L/min) 09/02/25 19:51 09/02/25 19:51 09/02/25 19:53 Temperature 99.2 F H Temperature Source Oral Pulse Rate 100 Respiratory Rate 27 H Respiratory Effort Respiratory Pattern Blood Pressure Blood Pressure Mean Pulse Ox 88 88 Oxygen Delivery Method Room Air Oxygen Flow Rate (L/min) 09/02/25 19:54 09/02/25 20:00 09/02/25 20:15 Temperature Temperature Source Pulse Rate 99 101 H Respiratory Rate 25 H 27 H Respiratory Effort Respiratory Pattern Blood Pressure 167/72 H Blood Pressure Mean 99 Pulse Ox 90 92 92 Oxygen Delivery Method Nasal Cannula Oxygen Flow Rate (L/min) 3 09/02/25 20:30 09/02/25 20:30 Temperature 99.2 F H 99.2 F H Temperature Source Oral Pulse Rate 101 H 97 Respiratory Rate 27 H 26 H Respiratory Effort Respiratory Pattern Blood Pressure 167/72 H 162/75 H Blood Pressure Mean 103 104 Pulse Ox 92 92 Oxygen Delivery Method Nasal Cannula Oxygen Flow Rate (L/min) 3 Weight Weight: 173 lb 8.061 oz Body Mass Index (BMI) 28.8 Physical Exam Narrative General: Alert, Oriented x3, Cooperative. BMI 28.9 kg/m?, overweight HEENT: Atraumatic, PERRLA, EOMI, Normocephalic. Oral: No Gingival or Mucosal Lesions/ Ulcerations Neck: Supple, No JVD, Negative Carotid Bruits Chest wall/Lungs: Air entry diminished in bilateral lung bases. No crepitation/rhonchi. Cardiovascular: Regular rate and rhythm, Normal S1,S2, No M/G/R Abdomen: Bowel Sounds Present, Soft, Non Tender, Non-Distended : No dysuria. No renal angle tenderness. No suprapubic tenderness. Extremities: No edema, Capillary Refill Less than 3 Seconds Skin: No rashes, No breakdown Musculoskeletal: No Tenderness to Palpation of Joints or Extremities Neurological: Cranial nerves II-XII grossly intact, DTR 2+/4. No acute focal neurological deficit. Psych/Mental Status: Flat affect Results Lab / Micro Data 09/02/25 18:50 09/02/25 18:50 Labs: Laboratory Results - last 24 hr 09/02/25 18:50: WBC 11.8 H, RBC 4.15 L, Hgb 12.6, Hct 37.4, MCV 90.1, MCH 30.4, MCHC 33.7, RDW Std Deviation 44.1 H, RDW Coeff of Sylvester 13.3, Plt Count 187, MPV 10.1, Immature Gran % (Auto) 0.300, Neut % (Auto) 82.9 H, Lymph % (Auto) 6.6 L, [place] % (Auto) 9.7, Eos % (Auto) 0.3, Baso % (Auto) 0.2, Absolute Neuts (auto) 9.8 H, Absolute Lymphs (auto) 0.78 L, Nucleated RBC % 0, PT 16.0 H, INR 1.3, A PTT 36.8 H, Sodium 137, Potassium 3.4, Chloride 98, Carbon Dioxide 25.6, Anion Gap 13, BUN 12, Creatinine 0.75, Estim Creat Clear Calc 68.90, Est GFR (MDRD) Non-Af 87, BUN/Creatinine Ratio 16.6, Glucose 201 H, Lactic Acid 1.4, Calcium 9.1, Total Bilirubin 1.56 H, AST 29, ALT 21, Alkaline Phosphatase 103, Total Protein 7.3, Albumin 3.9, Globulin 3.4, Albumin/Globulin Ratio 1.1 09/02/25 19:35: Urine Color Yellow, Urine Clarity Clear, Urine pH 6.5, Ur Specific [place] 1.015, Urine Protein 100 H, Urine Glucose (UA) 50 H, Urine Ketones 50 H, Urine Occult Blood 25 H, Urine Nitrite Negative, Urine Bilirubin 1 H, Urine Urobilinogen 12 H, Ur Leukocyte Esterase 25 H, Urine RBC 0-5 SEEN, Urine WBC 5-10 SEEN, Ur Squamous Epith Cells 0-5 SEEN, Urine Bacteria 1+, Urine Mucus 0 SEEN Micro: Microbiology 09/02/25 19:12 Mucosa - Nose SARS-CoV-2, Influenza & RSV (PCR) - Final Imaging Radiology Impression Chest X-Ray 09/02/25 18:40 IMPRESSION: Pulmonary findings as above. Reading Location: [address] 09/02/25 18:53 IMPRESSION: No evidence of acute intracranial pathology. Mild parenchymal volume loss and moderate chronic microangiopathic changes. Reading Location: [facility] Assessment & Plan Assessment/Plan (1) Multifocal pneumonia: PLAN: Plan This 70-year-old female being admitted for extreme fatigue probably due to pneumonia 1. Bilateral multifocal pneumonia: Chest x-ray initially reviewed and shows consolidative and reticular pattern in bilateral lungs suggestive of pneumonia. Curb 65 score is 2 suggestive of moderate risk of mortality. [facility] Pneumonia workup ordered. Triple PCR for SARS-CoV-2, flu and RSV are negative. Started on IV antibiotics ceftriaxone and azithromycin. Patient also had mild confusion CT was done which shows no evidence of acute intracranial pathology. 2. Mild asthma exacerbation from pneumonia: Patient is being managed on scheduled bronchodilator, IV Solu-Medrol, Mucinex, incentive spirometry and Pep. 3. Mild confusion, resolved. In ED patient is alert awake oriented x 3. Does not meet criteria for acute encephalopathy 4. Diabetes mellitus type 2: On semaglutide, metformin and Novolin insulin 70/30 at home. Accu-Chek before meals and at bedtime with Humalog sliding scale coverage and hypoglycemia protocol. Hold metformin semaglutide. Glucose is 201 mg/dL. Started on long-acting insulin. 5. Hypertension: On amlodipine. Blood pressure is high. IV hydralazine ordered as needed for SBP more than 180 mmHg 6. Dyslipidemia: On rosuvastatin. 7. Hypothyroidism on levothyroxine. TSH ordered for tomorrow a.m. 8. Mild anxiety/depression: On venlafaxine. 9. DVT prophylaxis moderate risk with mild overweight: Lovenox 40 mg subcu daily. Living will/advanced directive/end of life care: Patient does not have living will or advanced directive. Patient's daughter is power of deputy commonwealth's attorney for health. After discussion of benefits/risks procedures involved with full code, DNR CC arrest and DNR CC, the patient opted for full code but does not want to prolong ventilator if she goes in irreversible/terminal or in comatose state Patient does want artificial life support in the beginning including intubation, tube feed, ventilator and/chest compression, central venous catheter, vasopressor and DC shock if needed Total time spent in [id number] encounter in discussion of advanced directive 17 minutes. Microbiology Past 72 Hours 09/02/25 19:12 Mucosa - Nose SARS-CoV-2, Influenza & RSV (PCR) - Final Laboratory Results 09/02/25 18:50: WBC 11.8 H, RBC 4.15 L, Hgb 12.6, Hct 37.4, MCV 90.1, MCH 30.4, MCHC 33.7, RDW Std Deviation 44.1 H, RDW Coeff of Sylvester 13.3, Plt Count 187, MPV 10.1, Immature Gran % (Auto) 0.300, Neut % (Auto) 82.9 H, Lymph % (Auto) 6.6 L, Livingston % (Auto) 9.7, Eos % (Auto) 0.3, Baso % (Auto) 0.2, Absolute Neuts (auto) 9.8 H, Absolute Lymphs (auto) 0.78 L, Nucleated RBC % 0, PT 16.0 H, INR 1.3, A PTT 36.8 H, Sodium 137, Potassium 3.4, Chloride 98, Carbon Dioxide 25.6, Anion Gap 13, BUN 12, Creatinine 0.75, Estim Creat Clear Calc 68.90, Est GFR (MDRD) Non-Af 87, BUN/Creatinine Ratio 16.6, Glucose 201 H, Lactic Acid 1.4, Calcium 9.1, Total Bilirubin 1.56 H, AST 29, ALT 21, Alkaline Phosphatase 103, Total Protein 7.3, Albumin 3.9, Globulin 3.4, Albumin/Globulin Ratio 1.1 09/02/25 19:35: Urine Color Yellow, Urine Clarity Clear, Urine pH 6.5, Ur Specific [place] 1.015, Urine Protein 100 H, Urine Glucose (UA) 50 H, Urine Ketones 50 H, Urine Occult Blood 25 H, Urine Nitrite Negative, Urine Bilirubin 1 H, Urine Urobilinogen 12 H, Ur Leukocyte Esterase 25 H, Urine RBC 0-5 SEEN, Urine WBC 5-10 SEEN, Ur Squamous Epith Cells 0-5 SEEN, Urine Bacteria 1+, Urine Mucus 0 SEEN Clinical Impression(s) from Imaging Studies Chest X-Ray 09/02/25 18:40 IMPRESSION: Pulmonary findings as above. Reading Location: [address] 09/02/25 18:53
[2025-09-02 22:58] LABS: Magnesium 1.8 mg/dL (1.5-2.2)
[2025-09-02] MEDS: Insulin Glargine-YFGN 100 UNIT/ML Pen 10 UNIT SC (23:37)
[2025-09-02] MEDS: 0.45% Normal Saline 1,000 ML 75 ML IV (23:37)
[2025-09-03] VITALS (10 sets, daily range): BP systolic 123–154; BP diastolic 65–87; PULSE 78–85; RESP 16–21; TEMP 36.3–36.6; O2SAT 94–97; BMI 28.9
[2025-09-03 07:10] LABS: Hematocrit 38.0 % (37-47); Hemoglobin 12.4 g/dL (12.0-15.0); Immature Granulocytes Count 0.060 X10^3/uL (0.0-0.0); Mean Corp Hgb Conc 32.6 g/dL (32-36); Mean Corpuscular Volume 91.3 fL (81-99); Mean Platelet Vol. 11.0 fl (6.2-12.0); NRBC Flagged by Analyzer 0 % (0-5); POSITIVE DIFFERENTIAL YES; Platelet Count 187 K/mm3 (150-450); RBC Distribution Width CV 13.2 % (11.6-14.6); RBC Distribution Width SD 44.9 fl (35.1-43.9); Red Blood Count 4.16 M/mm3 (4.2-5.4); White Blood Count 10.2 K/mm3 (4.4-11.0)
--- NOTE | 2025-09-03 07:52 | PN.HOSP_ITS ---
Reason for Visit Chief Complaint: Extreme tiredness since past Saturday Subjective Subjective Patient is a 70-year-old lady who presented with days of generalized fatigue, nausea as well as congestion. Imaging studies demonstrated findings consistent with pneumonia. Patient was also found to have abnormal urinalysis consistent with UTI admitted to regular nursing floor for further management Objective Data Objective Data Vital Signs: Vital Signs Temp Pulse Resp BP Pulse Ox O2 Del Method O2 Flow Rate 97.8 F 83 18 154/79 H 94 Nasal Cannula 4 09/03/25 05:56 09/03/25 05:56 09/03/25 05:56 09/03/25 05:56 09/03/25 05:56 09/03/25 06:14 09/03/25 06:14 Oxygen Flow Rate (L/min) 4 Oxygen Delivery Method Nasal Cannula Weight: 78.7 kg Body Mass Index (BMI) 28.9 Intake & Output: Intake and Output for Last 24 Hours 09/01/25 09/02/25 09/03/25 23:59 23:59 23:59 Intake Total 2981.65 / 2981.65 1000 / 1000 Output Total 1500 / 1500 Balance 2981.65 / 2981.65 -500 / -500 Lab / Micro Data 09/03/25 06:19 09/03/25 06:19 Labs: Laboratory Results - last 24 hr 09/02/25 18:50: WBC 11.8 H, RBC 4.15 L, Hgb 12.6, Hct 37.4, MCV 90.1, MCH 30.4, MCHC 33.7, RDW Std Deviation 44.1 H, RDW Coeff of Sylvester 13.3, Plt Count 187, MPV 10.1, Immature Gran % (Auto) 0.300, Neut % (Auto) 82.9 H, Lymph % (Auto) 6.6 L, [place] % (Auto) 9.7, Eos % (Auto) 0.3, Baso % (Auto) 0.2, Absolute Neuts (auto) 9.8 H, Absolute Lymphs (auto) 0.78 L, Nucleated RBC % 0, PT 16.0 H, INR 1.3, A PTT 36.8 H, Sodium 137, Potassium 3.4, Chloride 98, Carbon Dioxide 25.6, Anion Gap 13, BUN 12, Creatinine 0.75, Estim Creat Clear Calc 68.90, Est GFR (MDRD) Non-Af 87, BUN/Creatinine Ratio 16.6, Glucose 201 H, Lactic Acid 1.4, Calcium 9.1, Magnesium 1.8, Total Bilirubin 1.56 H, AST 29, ALT 21, Alkaline Phosphatase 103, Total Protein 7.3, Albumin 3.9, Globulin 3.4, Albumin/Globulin Ratio 1.1 09/02/25 19:35: Urine Color Yellow, Urine Clarity Clear, Urine pH 6.5, Ur Specific [place] 1.015, Urine Protein 100 H, Urine Glucose (UA) 50 H, Urine Ketones 50 H, Urine Occult Blood 25 H, Urine Nitrite Negative, Urine Bilirubin 1 H, Urine Urobilinogen 12 H, Ur Leukocyte Esterase 25 H, Urine RBC 0-5 SEEN, Urine WBC 5-10 SEEN, Ur Squamous Epith Cells 0-5 SEEN, Urine Bacteria 1+, Urine Mucus 0 SEEN 09/02/25 23:35: POC Glucose 215 H 09/03/25 06:02: POC Glucose 251 H 09/03/25 06:19: WBC 10.2, RBC 4.16 L, Hgb 12.4, Hct 38.0, MCV 91.3, MCH 29.8, MCHC 32.6, RDW Std Deviation 44.9 H, RDW Coeff of Sylvester 13.2, Plt Count 187, MPV 11.0, Immature Gran % (Auto) 0.600, Neut % (Auto) 89.8 H, Lymph % (Auto) 5.6 L, [place] % (Auto) 3.8, Eos % (Auto) 0.0, Baso % (Auto) 0.2, Absolute Neuts (auto) 9.2 H, Absolute Lymphs (auto) 0.57 L, Nucleated RBC % 0 Micro: Microbiology 09/03/25 00:44 Mucosa - Nasopharyngeal Respiratory Panel (PCR) - Final 09/02/25 19:35 Urine, Clean Catch Legionella Antigen - Final 09/02/25 19:35 Urine, Clean Catch Streptococcus pneumoniae Antigen (M - Final 09/02/25 19:12 Mucosa - Nose SARS-CoV-2, Influenza & RSV (PCR) - Final Radiography Diagnostic Testing: Radiology Impression Chest X-Ray 09/02/25 18:40 IMPRESSION: Pulmonary findings as above. Reading Location: [address] 09/02/25 18:53 IMPRESSION: No evidence of acute intracranial pathology. Mild parenchymal volume loss and moderate chronic microangiopathic changes. Reading Location: [facility] Physical Exam Narrative GENERAL: cooperative HEENT: Atraumatic; normocephalic EYES; Anicteric, Normal Conjunctiva NECK; supple, normal thyroid, RESPIRATORY: Diminished to auscultation CARDIOVASCULAR: Regular S1 S2, GI: soft, normoactive bowel sounds, : No Renal angle tenderness; EXTREMITIES: No edema, no clubbing, MUSCULOSKELETAL: no muscle wasting NEURO: Awake; no lateralizing signs. SKIN: No Rash PSYCH; Flat affect Assessment & Plan Assessment/Plan (1) Multifocal pneumonia: PLAN: Plan This 70-year-old female being admitted for extreme fatigue probably due to pneumonia 1. Acute metabolic encephalopathy ? Present on admission secondary to combination of pneumonia as well as cystitis 2. Pneumonia - Suspected to be secondary to streptococcal pneumonia, Blood and sputum cultures sent. Patient placed on Rocephin and Zithromax and placed on oxygen titrated to keep Pulse Ox greater than 90 3. Acute cystitis ? Patient is on ceftriaxone urine culture sent 4. Mild asthma exacerbation ? Bronchodilator treatment in addition to systemic steroid initiated 5. Diabetes mellitus type II -patient's oral hypoglycemics held. Placed on long acting insulin, Accu-Cheks a.c. and at bedtime and covered with sliding scale insulin 6. Hypertension ? Blood pressure controlled, home medications continued with dose adjustment as needed 7. Dyslipidemia ?Patient is on statin therapy, continued at home dose 8. Hypothyroidism ? Patient is on levothyroxine home dose continued 9. Depression with anxiety ? Patient is on venlafaxine continue 10. DVT prophylaxis ? Subcu Lovenox Time spent in the patient's overall evaluation,decision-making process, review of diagnostic data, adjustment of management, discussion with other providers, nursing nursing and ancillary staff involved in patient's care documentation, 40 Minutes Charges/Coding Visit Charges Inpatient E&M: 62077 Subs Hosp L2
[2025-09-03 08:07] LABS: Anion Gap 13 (5-15); BUN 11 mg/dL (4-19); BUN/Creat Ratio 20.1 RATIO (10-20); Calcium,Total 8.4 mg/dL (7.6-11.0); Carbon Dioxide 23.3 mmol/L (21.0-32.0); Chloride 106 mmol/L (98-108); Estimated Creatinine Clearance 68.82 ml/min (50-250); Glucose 261 mg/dL (70-99); Potassium 3.4 mmol/L (3.3-5.1)
--- NOTE | 2025-09-03 09:24 | CASEMGMT ---
Addendum entered by Vashti Byers 09/03/25 11:07: Social Work SW reviewed PT/OT, no therapy is recommended. SW spoke w/pt, daughter here also. SW explained therapy not recommending any therapy at d/c. At this time, HHC referral not warranted, pt in agreement w/this. Pt agreeable to home O2 being ordered should be needed from [facility]. Otherwise, no additional homegoing needs. ZACK Crocker Original Note: Social Work SW met w/pt in room, in regard to discharge plan. Pt is currently on O2. SW inquired about oxygen for home, if she were to need it, does she have a preference for O2 provider. We discussed [facility], pt has used them in the past as pt had to go home after a prior hospitalization w/O2, so would prefer [facility], SNF list not needed. We also discussed SNF vs HHC. Pt does not think she would need SNF, may be open to HHC if needed. SW will follow up w/pt after pt has PT. SW will continue to follow. ZACK Crocker
[2025-09-03] MEDS: Cholecalciferol (Vit D3) 125 MCG CAPSULE (5,000 UNITS) PO (10:31)
[2025-09-03] MEDS: 0.9% Saline Lock 10 ML Syringe IV ×2 (14:53→21:45)
[2025-09-03] MEDS: Potassium Chloride Oral Tablet 20 MEQ PO (16:20)
[2025-09-03] MEDS: Ceftriaxone 2 GM in 0.9% Normal Saline (50mL MB+) 50 ML IV (21:50)
[2025-09-03] MEDS: 0.9% Normal Saline (250mL Bag) 250 ML 15 ML IV (21:50)
[2025-09-03] MEDS: Insulin Glargine-YFGN 100 UNIT/ML Pen 20 UNIT SC (22:59)
[2025-09-03] MEDS: Azithromycin 500 MG in 0.9% Normal Saline (250mL Bag) 250 ML 250 MG IV (22:59)
[2025-09-04 04:24] VITALS: BP 155/79; PULSE 84; RESP 20; TEMP 36.7; O2SAT 93
[2025-09-04 04:37] VITALS: O2SAT 93
[2025-09-04 05:28] VITALS: BMI 28.8
[2025-09-04 06:45] VITALS: PULSE 86; O2SAT 92
[2025-09-04] MEDS: 0.9% Saline Lock 10 ML Syringe IV (06:46)
[2025-09-04 08:35] VITALS: PULSE 78; RESP 16; O2SAT 95
--- NOTE | 2025-09-04 08:42 | PCM.DC.SUM ---
Providers Date of Admission: 09/02/25 Date of Discharge: 09/04/25 Primary Care Physician: Dr. Madelin Rivera, DO Reason For Visit: PNEUMONIA Diagnosis Discharge Diagnosis (1) Multifocal pneumonia: Status: Acute Code(s): J18.8 - Other pneumonia, unspecified organism Plan This 70-year-old female being admitted for extreme fatigue probably due to pneumonia 1. Acute metabolic encephalopathy ? Present on admission secondary to combination of pneumonia as well as cystitis ? 09/04/2025; patient urine cultures no significant growth 2. Pneumonia - Suspected to be secondary to streptococcal pneumonia, Blood and sputum cultures sent. Patient placed on Rocephin and Zithromax and placed on oxygen titrated to keep Pulse Ox greater than 90 09/04/2025; oxygen weaned off 3. Acute cystitis ? Patient is on ceftriaxone urine culture sent 4. Mild asthma exacerbation ? Bronchodilator treatment in addition to systemic steroid initiated 5. Diabetes mellitus type II -patient's oral hypoglycemics held. Placed on long acting insulin, Accu-Cheks a.c. and at bedtime and covered with sliding scale insulin 6. Hypertension ? Blood pressure controlled, home medications continued with dose adjustment as needed 7. Dyslipidemia ?Patient is on statin therapy, continued at home dose 8. Hypothyroidism ? Patient is on levothyroxine home dose continued 9. Depression with anxiety ? Patient is on venlafaxine continue 10. DVT prophylaxis ? Subcu Lovenox Time spent in the patient's overall evaluation,decision-making process, review of diagnostic data, adjustment of management, discussion with other providers, nursing nursing and ancillary staff involved in patient's care documentation,35 Minutes Medications at Discharge Home Medications cholecalciferol (vitamin D3) 125 mcg (5,000 unit) capsule 125 mcg PO DAILY Check with primary doctor 02/14/21 levothyroxine 50 mcg capsule 50 mcg PO DAILY Check with primary doctor 02/14/21 rosuvastatin 10 mg tablet 10 mg PO QHS Check with primary doctor 02/14/21 amlodipine 10 mg tablet 10 mg PO DAILY Check with primary doctor 02/23/23 fluticasone 232mcg-salmeterol 14mcg/actuation breath act,powder sensor 1 inh inhalation BID asthma 08/08/23 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 sensor (FreeStyle Angeline 3 Sensor device) #2 ea 03/12/24 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,nitroglycerin separator operator,cont (FreeStyle Angeline 3 [place]) #1 ea 03/12/24 semaglutide 2 mg/dose (8 mg/3 mL) subcutaneous pen injector (Ozempic) 2 mg (0.75 mL) subcut QWEEK DM #3 mL 07/06/24 metformin 500 mg tablet 1,000 mg (2 x 500 mg) PO BID DM #360 tabs 12/09/24 pen needle, diabetic 32 gauge x 5/32 #100 ea 05/21/25 dupilumab 100 mg/0.67 mL subcutaneous syringe (Dupixent) 200 mg subcut Q2W 06/14/25 venlafaxine 75 mg tablet 75 mg PO DAILY Check with primary doctor #30 tabs 08/19/25 insulin human U-100 NPH-regulr 70-30 mix 100 unit/mL subcutaneous susp (Novolin 70/30 U-100 Insulin) 20 unit subcut .am DM 09/02/25 insulin syringe-needle U-100 0.3 mL 31 gauge x 5/16 09/02/25 azithromycin 500 mg tablet 500 mg PO DAILY 3 days #3 tabs 09/04/25 cefdinir 300 mg capsule 300 mg PO BID #10 caps 09/04/25 cefdinir 300 mg capsule 300 mg PO BID #10 caps 09/04/25 Physical Exam Narrative GENERAL: cooperative HEENT: Atraumatic; normocephalic EYES; Anicteric, Normal Conjunctiva NECK; supple, normal thyroid, RESPIRATORY: Diminished to auscultation CARDIOVASCULAR: Regular S1 S2, GI: soft, normoactive bowel sounds, : No Renal angle tenderness; EXTREMITIES: No edema, no clubbing, MUSCULOSKELETAL: no muscle wasting NEURO: Awake; no lateralizing signs. SKIN: No Rash PSYCH; Flat affect Weight / BMI Weight Weight: 78.4 kg Body Mass Index (BMI) 28.8 ABG / Lab / Microbiology Data 09/03/25 06:19 09/03/25 06:19 Laboratory: Laboratory Results - last 24 hr 09/03/25 11:21: POC Glucose 361 H 09/03/25 16:16: POC Glucose 424 H 09/03/25 22:51: POC Glucose 286 H 09/04/25 06:42: POC Glucose 231 H Microbiology: Microbiology 09/02/25 19:35 Urine Catheter - Catheter Urine Culture - Preliminary GNR lactose loan closer Gram positive organism Staphylococcus species 09/03/25 00:44 Mucosa - Nasopharyngeal Respiratory Panel (PCR) - Final 09/02/25 19:35 Urine, Clean Catch Legionella Antigen - Final 09/02/25 19:35 Urine, Clean Catch Streptococcus pneumoniae Antigen (M - Final 09/02/25 19:12 Mucosa - Nose SARS-CoV-2, Influenza & RSV (PCR) - Final D/C Instructions Discharge Activity: Return to Normal Activity Call your doctor if you observe: Fever of 101 or Higher, Shortness of breath, Fainting spells and Chest pain DC O2, CPAP, BIPAP Needs Home O2 Discharge instructions: No Meaningful Use Info Meaningful Use Meaningful Use Diagnoses (Choose all that apply): None applicable Discharge Plan Admission Admit Date/Time: 09/02/25 20:27 Attending Provider: Simone Benitez Primary Care Provider: Madelin Rivera Consulting Providers: Christ Chang Discharge Orders/Prescriptions Prescriptions: New cefdinir 300 mg capsule 300 mg PO BID Qty: 10 0RF azithromycin 500 mg tablet 500 mg PO DAILY 3 Days Qty: 3 0RF cefdinir 300 mg capsule 300 mg PO BID Qty: 10 0RF Continued levothyroxine 50 mcg capsule 50 mcg PO DAILY rosuvastatin 10 mg tablet 10 mg PO QHS cholecalciferol (vitamin D3) 125 mcg (5,000 unit) capsule 125 mcg PO DAILY fluticasone propion-salmeterol 232-14 mcg/actuation aero powdr breath act w/sensor 1 inh inhalation BID (DME) FreeStyle Angeline 3 [place] Misc See Rx Instructions .Route Qty: 1 0RF Rx Instructions: As directed (DME) FreeStyle Angeline 3 Sensor Device See Rx Instructions .Route Qty: 2 5RF Rx Instructions: 1 sensor q 14 days Ozempic 2 mg/dose (8 mg/3 mL) pen injector 2 mg subcut QWEEK Qty: 3 5RF Patient Comments: Patient takes on Tuesdays or , doesn't take the same day each week Dupixent Syringe 100 mg/0.67 mL syringe 200 mg subcut Q2W amlodipine 10 mg tablet 10 mg PO DAILY Novolin 70/30 U-100 Insulin 100 unit/mL (70-30) suspension 20 unit subcut .am Patient Comments: 20 units in morning 18 units in evening (DME) insulin syringe-needle U-100 0.3 mL 31 gauge x 5/16 syringe See Rx Instructions .Route Rx Instructions: BID metformin 500 mg tablet 1,000 mg PO BID Qty: 360 1RF (DME) pen needle, diabetic 32 gauge x 5/32 needle See Rx Instructions .ROUTE .MEDSUPPLY Qty: 100 7RF Rx Instructions: tid venlafaxine 75 mg tablet 75 mg PO DAILY Qty: 30 3RF Referrals / Follow Up: Madelin Rivera DO [Primary Care Provider, Internal Medicine] - Within 1 Week Disposition Disposition (needs filled in before D/C Order can be placed): Home, Self Care Charges/Coding Visit Charges Inpatient E&M: 82788 Disch Hosp >30min
[2025-09-04 09:23] VITALS: BP 139/66; PULSE 93; RESP 18; TEMP 36.6; O2SAT 98
[2025-09-04] MEDS: Potassium Chloride Oral Tablet 20 MEQ PO (09:27)
[2025-09-04] MEDS: Cholecalciferol (Vit D3) 125 MCG CAPSULE (5,000 UNITS) PO (09:28)
[2025-09-04] MEDS: Senna/Docusate Sodium 1 Tablet 2 TABLET PO (09:28)
[2025-09-04 10:40] VITALS: O2SAT 98
== END 2025-09-04 11:24 | disposition home or self-care (01) | DRG 193 ==
LOC: ED 20:24 → MS3 20:34
PROVIDERS: Admitting Provider Internal Medicine; Emergency Provider Emergency Medicine; PCP Internal Medicine; Visit Provider Internal Medicine
DX: J15.4 Pneumonia due to other streptococci (principal); G93.41 Metabolic encephalopathy; J45.901 Unspecified asthma with (acute) exacerbation; N30.00 Acute cystitis without hematuria; Z51.5 Encounter for palliative care; E11.9 Type 2 diabetes mellitus without complications; E03.9 Hypothyroidism, unspecified; I10 Essential (primary) hypertension; E78.2 Mixed hyperlipidemia; F41.8 Other specified anxiety disorders; Z66 Do not resuscitate; Z82.49 Family history of ischemic heart disease and other diseases of the circulatory system; Z83.3 Family history of diabetes mellitus; Z79.85 Long-term (current) use of injectable non-insulin antidiabetic drugs; Z79.84 Long term (current) use of oral hypoglycemic drugs; Z79.899 Other long term (current) drug therapy
CPT/HCPCS: 70450; 71046; 80048; 80053; 81001; 82962; 83605; 83735; 84443; 85025; 85610; 85730; 87040; 87077; 87086; 87088; 87186; 87449; 87631; 87633; 93005; 94640; 94668; 97162; 97165; 99285; A4216; J0696

== ENCOUNTER → 2025-09-21 | Outpatient (CLI) | payer MEDICARE, OTHER, SELFPAY ==
--- NOTE | 2025-09-21 09:10 | BD_ITS ---
PROCEDURE: DEXA BONE DENSITY STUDY 09/21/2025 REASON FOR EXAM: F, age 70 y/o . Patient is postmenopausal TECHNIQUE: Procedure Code: BDDBD Modality: DX Procedure: DEXA BONE DENSITY STUDY COMPARISON: DEXA examination dated 09/19/2023 FINDINGS: BMD and T-SCORES Lumbar spine: 0.882 g/cm2, T-score -1.6 Levels: L1 through L4 Change from prior: There has been an increase in the bone mineral density of the lumbar spine by 1.5% since the prior study dated 09/19/2023. Left femoral neck: 0.598 g/cm2, T-score -2.3 Left total hip: 0.765 g/cm2, T-score -1.5 Change from prior: There has been an increase in the bone mineral density of the left hip by 0.1% since the prior study dated 09/19/2023. Right femoral neck: 0.604 g/cm2, T-score -2.2 Right total hip: 0.876 g/cm2, T-score -0.5 Change from prior: There has been a significant increase in the bone mineral density of the right hip by 8.5% since the prior study dated 09/19/2023. The World Health Organization has defined the following categories based on bone density: Normal bone density: T-score equal to or greater than -1.0 Osteopenia: T-score between -1.0 and -2.5 Osteoporosis: T-score equal to or less than -2.5 FRAX (or Comparable) Fracture Risk Assessment: 10 Year Probability of Fracture: Major Osteoporotic Fracture: 20% Hip Fracture: 4.9% (Note: FRAX is not to be reported in setting of normal range bone density, osteoporosis on DEXA, known history of osteoporosis, prior osteoporotic hip or vertebral fracture, or for any patient undergoing pharmacological treatment for bone loss.) The National Osteoporosis Foundation (NOF) recommends pharmacological treatment for patients with a FRAX 10-year risk of 3% or higher for a hip fracture, or 20% or higher for a major osteoporotic fracture, to prevent osteoporosis and reduce fracture risk. The patient does meet the pharmacological treatment recommendations for prevention of osteoporosis. BD/Dexa Bone Density Study IMPRESSION: OSTEOPENIA. Recommend follow-up in 1 year. Reading Location: [id number]
--- NOTE | 2025-09-21 10:00 | BI_ITS ---
EXAM: SCRN MAMM (CAD)W/MERRY BILAT DATE: 09/21/2025 CLINICAL HISTORY: F, Age 70 y/o , BREAST CANCER SCREENING TECHNIQUE: Procedure Code: [id number] Modality: MG Procedure: SCRN MAMM (CAD)W/MERRY BILAT COMPARISON: Prior exam(s) were compared FINDINGS: TISSUE DENSITY: The breasts are heterogeneously dense, which may obscure small masses. Bilateral Breast Mammographic Findings: No significant masses, calcifications or other abnormalities are identified. BI/SCRN MAMM (CAD)W/MERRY BILAT IMPRESSION: No mammographic evidence of malignancy. OVERALL FINAL ASSESSMENT BI-RADS 1: NEGATIVE. RECOMMENDATION: Routine annual follow-up in 1 Year Additional Recommendation none A letter with findings and recommendations will be mailed to the patient. Reading Location: [id number]
== END | disposition home or self-care (01) ==
LOC: OPBD 09:01
PROVIDERS: PCP Internal Medicine; Referring Provider Internal Medicine; Visit Provider Internal Medicine
DX: Z12.31 Encounter for screening mammogram for malignant neoplasm of breast (principal); Z78.0 Asymptomatic menopausal state
CPT/HCPCS: 77063; 77067; 77080